=== PATIENT | female | born 1975 | race Caucasian/White ===

== ENCOUNTER → 2017-05-22 16:13 | Outpatient (CLI) | payer OTHER, SELFPAY ==
[2017-05-22 17:38] LABS: Absolute Lymphocyte Count 3.37 X10^3/ul (0.83-4.51); Absolute Neutrophil Count 5.1 X10^3/uL (2.0-7.7); Basophil# 0.06 X10^3/uL; Basophil% 0.6 % (0-1); Eosinophil# 0.17 X10^3/uL; Eosinophils% 1.8 % (0-5); Hematocrit 44.7 % (37-47); Hemoglobin 15.1 g/dl (12.0-15.0); Lymphocyte # 3.37 X10^3/ul (4.0); Lymphocyte % 35.1 % (19-41); Mean Corp Hgb Conc 33.8 g/gl (32-36); Mean Corpuscular Hgb 31.7 pg (27.0-32.0); Mean Corpuscular Volume 93.7 fL (81-99); Mean Platelet Vol. 10.8 fl (6.2-12.0); Monocyte# 0.84 X10^3/uL; Monocyte% 8.8 % (0-10); Neutrophil # 5.12 X10^3/uL (2.7-7.7); Neutrophil % 53.3 % (47-70); Platelet Count 306 K/mm3 (150-450); RBC Distribution Width CV 13.8 % (11.6-14.6); RBC Distribution Width SD 45.3 fl (35.1-43.9); Red Blood Count 4.77 M/mm3 (4.2-5.4); White Blood Count 9.6 K/mm3 (4.4-11.0)
[2017-05-22 17:55] LABS: ALB/GLOB Ratio 1.2 RATIO (0.9-2.4); AST(SGOT) 15 U/L (15-37); Alanine Aminotransfer ALT/SGPT 26 U/L (13-56); Albumin, Serum 4.1 g/dL (3.2-5.0); Alkaline Phosphatase 58 U/L (45-117); Anion Gap 12 (5-15); BUN 15 mg/dL (7-18); BUN/Creat Ratio 22.2 RATIO (10-20); Calcium,Total 9.3 mg/dL (8.5-10.1); Chloride 101 mmol/L (98-107); Creatinine, Serum 0.68 mg/dL (0.55-1.02); EST Glomerular Filtration Rate 102 mL/min (>60); Est Glom Filt Rate - Afr Amer 123 mL/min (>60); Globulin 3.4 g/dL (2.2-4.2); Glucose 138 mg/dL (74-106); POSITIVE COUNT NO; POSITIVE DIFFERENTIAL NO; POSITIVE MORPHOLOGY NO; Potassium 3.7 mmol/L (3.5-5.1); Protein, Total 7.5 g/dL (6.4-8.2); Sodium Level 137 mmol/L (136-145)
== END ==
PROVIDERS: Family Provider Family Medicine Geriatric Medicine; PCP Family Medicine Geriatric Medicine
DX: G47.33 Obstructive sleep apnea (adult) (pediatric) (principal)
CPT/HCPCS: 36415; 80053; 85025

== ENCOUNTER → 2017-08-13 14:19 | Outpatient (CLI) | payer OTHER, SELFPAY ==
[2017-08-13 17:31] LABS: Absolute Lymphocyte Count 2.71 X10^3/ul (0.83-4.51); Absolute Neutrophil Count 1.9 X10^3/uL (2.0-7.7); Basophil# 0.04 X10^3/uL; Basophil% 0.7 % (0-1); Eosinophil# 0.16 X10^3/uL; Eosinophils% 2.9 % (0-5); Hematocrit 36.7 % (37-47); Lymphocyte # 2.71 X10^3/ul (4.0); Lymphocyte % 48.7 % (19-41); Mean Corp Hgb Conc 32.7 g/gl (32-36); Mean Corpuscular Hgb 30.5 pg (27.0-32.0); Mean Corpuscular Volume 93.1 fL (81-99); Mean Platelet Vol. 11.5 fl (6.2-12.0); Monocyte# 0.74 X10^3/uL; Monocyte% 13.3 % (0-10); Neutrophil # 1.91 X10^3/uL (2.7-7.7); Neutrophil % 34.4 % (47-70); Platelet Count 216 K/mm3 (150-450); RBC Distribution Width CV 13.9 % (11.6-14.6); RBC Distribution Width SD 47.4 fl (35.1-43.9); Red Blood Count 3.94 M/mm3 (4.2-5.4); White Blood Count 5.6 K/mm3 (4.4-11.0)
[2017-08-13 17:32] LABS: POSITIVE COUNT NO; POSITIVE DIFFERENTIAL NO; POSITIVE MORPHOLOGY NO
[2017-08-13 17:55] LABS: ALB/GLOB Ratio 1.2 RATIO (0.9-2.4); AST(SGOT) 32 U/L (15-37); Alanine Aminotransfer ALT/SGPT 52 U/L (13-56); Albumin, Serum 3.6 g/dL (3.2-5.0); Alkaline Phosphatase 51 U/L (45-117); Anion Gap 9 (5-15); BUN 14 mg/dL (7-18); Calcium,Total 8.6 mg/dL (8.5-10.1); Chloride 108 mmol/L (98-107); Creatinine, Serum 0.48 mg/dL (0.55-1.02); EST Glomerular Filtration Rate 151 mL/min (>60); Est Glom Filt Rate - Afr Amer 182 mL/min (>60); Globulin 3.1 g/dL (2.2-4.2); Glucose 99 mg/dL (74-106); Potassium 3.6 mmol/L (3.5-5.1); Protein, Total 6.7 g/dL (6.4-8.2); Sodium Level 143 mmol/L (136-145); Thyroid Stim Hormone (TSH) 1.25 uIU/mL (0.358-3.74); Uric Acid 5.4 mg/dL (2.6-6.0)
== END ==
PROVIDERS: Family Provider Family Medicine Geriatric Medicine; PCP Family Medicine Geriatric Medicine; Visit Provider Family Medicine Geriatric Medicine
DX: E11.9 Type 2 diabetes mellitus without complications (principal); I10 Essential (primary) hypertension; M10.9 Gout, unspecified
CPT/HCPCS: 36415; 80053; 84443; 84550; 85025

== ENCOUNTER → 2017-09-06 07:19 | Outpatient (CLI) | payer OTHER, SELFPAY ==
--- NOTE | 2017-09-06 07:19 | DT_ITS ---
This patient was seen during an EMR downtime September 02, 2017 - September 09, 2017. This patient may have a combination of paper and electronic documentation or all paper documentation. All documentation is viewable within the e-chart portion of [employer] [facility] [employer] for each patient visit.
[2017-09-06 11:54] LABS: White Blood Count 4.2 K/mm3 (4.4-11.0)
[2017-09-06 11:55] LABS: Eosinophils% 3.4 % (0-5); Hemoglobin 12.8 g/dl (12.0-15.0); Mean Corp Hgb Conc 32.8 g/gl (32-36); Mean Corpuscular Hgb 31.2 pg (27.0-32.0); Mean Corpuscular Volume 95.1 fL (81-99); Monocyte% 8.9 % (0-10); Neutrophil % 40.7 % (47-70); POSITIVE COUNT NO; POSITIVE DIFFERENTIAL NO; POSITIVE MORPHOLOGY NO; Platelet Count 217 K/mm3 (150-450); RBC Distribution Width CV 13.8 % (11.6-14.6); RBC Distribution Width SD 46.2 fl (35.1-43.9)
[2017-09-06 11:57] LABS: Absolute Lymphocyte Count 1.91 X10^3/ul (0.83-4.51); Absolute Neutrophil Count 1.7 X10^3/uL (2.0-7.7); Basophil# 0.04 X10^3/uL; Eosinophil# 0.14 X10^3/uL; Lymphocyte # 1.91 X10^3/ul (4.0); Monocyte# 0.37 X10^3/uL; Neutrophil # 1.69 X10^3/uL (2.7-7.7)
[2017-09-06 14:44] LABS: PTHIN 13.7 pg/mL (18.4-80.1); Vitamin B12 705 pg/mL (211-911); Vitamin D,25 Hydroxy 29.7 ng/mL (29.95-100.01)
[2017-09-06 14:53] LABS: ALB/GLOB Ratio 1.2 RATIO (0.9-2.4); AST(SGOT) 34 U/L (15-37); Alanine Aminotransfer ALT/SGPT 72 U/L (13-56); Albumin, Serum 3.8 g/dL (3.2-5.0); Alkaline Phosphatase 64 U/L (45-117); Anion Gap 7 (5-15); BUN 13 mg/dL (7-18); Calcium,Total 9.1 mg/dL (8.5-10.1); Chloride 106 mmol/L (98-107); Creatinine, Serum 0.59 mg/dL (0.55-1.02); EST Glomerular Filtration Rate 119 mL/min (>60); Est Glom Filt Rate - Afr Amer 144 mL/min (>60); Globulin 3.1 g/dL (2.2-4.2); Glucose 107 mg/dL (74-106); Potassium 3.8 mmol/L (3.5-5.1); Protein, Total 6.9 g/dL (6.4-8.2); Sodium Level 143 mmol/L (136-145)
[2017-09-06 14:54] LABS: Ferritin 153 ng/mL (8-252); Iron 112 ug/dL (50-170); Iron Binding Capacity,Total 285 ug/dL (250-450); PERCENT IRON SATURATION 39.3 % (15.0-55.0)
[2017-09-13 18:15] LABS: Copper, Serum or Plasma 77 ug/dL (72-166); Vitamin B1, Thiamine 130.8 nmol/L (66.5-200.0)
== END ==
PROVIDERS: Family Provider Family Medicine Geriatric Medicine; PCP Family Medicine Geriatric Medicine
DX: Z09 Encounter for follow-up examination after completed treatment for conditions other than malignant neoplasm (principal)
CPT/HCPCS: 36415; 80053; 82306; 82525; 82607; 82728; 82746; 83540; 83550; 83970; 84425; 85025

== ENCOUNTER → 2017-10-21 07:31 | Outpatient (CLI) | payer OTHER, SELFPAY ==
[2017-10-21 11:04] LABS: AST(SGOT) 32 U/L (15-37); Alanine Aminotransfer ALT/SGPT 89 U/L (13-56); Albumin, Serum 3.5 g/dL (3.2-5.0); Alkaline Phosphatase 62 U/L (45-117); Bilirubin, Direct 0.13 mg/dL (0.00-0.30); Protein, Total 6.5 g/dL (6.4-8.2)
== END ==
PROVIDERS: Family Provider Family Medicine Geriatric Medicine; PCP Family Medicine Geriatric Medicine
DX: R74.0 Nonspecific elevation of levels of transaminase and lactic acid dehydrogenase [LDH] (principal)
CPT/HCPCS: 36415; 80076

== ENCOUNTER → 2018-02-12 08:49 | Outpatient (CLI) | payer OTHER, SELFPAY ==
--- NOTE | 2018-02-12 09:05 | RAD_ITS ---
STUDY: X-RAY - PELVIS REASON FOR EXAM: Female, 42 years old. Pain, no known injury TECHNIQUE: One view of the pelvis was obtained. COMPARISON: None. FINDINGS: There is a non-specific bowel gas pattern. Post surgical pelvis changes and intrauterine device. Normal bilateral iliac wings, sacroiliac ictal joints and visualized sacrum. Normal visualized bilateral superior and inferior pubic rami. Normal pubic symphysis. Normal ischial tuberosities. Normal visualized right femoral head. Normal right acetabulum. Normal right hip joint. Normal visualized left femoral head. Normal left acetabulum. Normal left hip joint. RAD/Hips B/L min 2 views w/ Pelvis IMPRESSION: Mild degenerative changes of the bilateral sacroiliac joints. Electronically Signed: Laurence Goodman MD at 7:25 EST , Service support ,
--- NOTE | 2018-02-12 09:05 | RAD_ITS ---
STUDY: X-RAY - SACRUM/COCCYX REASON FOR EXAM: Female, 42 years old. Pain, no known injury TECHNIQUE: 3 view(s) of the sacrum and coccyx were obtained. COMPARISON: None. FINDINGS: There is degenerative arthrosis of the bilateral sacroiliac joints. Normal visualized sacral ala and fused sacral bodies. Normal sacrococcygeal junction with a normal angulation. Normal coccygeal segments. The presacral soft tissue structures are unremarkable. RAD/Sacrum-Coccyx min 2 Views IMPRESSION: Normal x-rays of the sacrum and coccyx allowing for sclerosis and mild degenerative changes of the bilateral sacroiliac joints. Electronically Signed: Laurence Goodman MD at 7:26 EST , Service support ,
--- NOTE | 2018-02-12 09:05 | RAD_ITS ---
STUDY: X-RAY - LEFT KNEE REASON FOR EXAM: Female, 42 years old. Pain, no known injury TECHNIQUE: 4 view(s) of the knee. COMPARISON: None. FINDINGS: Normal visualized distal femur. Tiny spurring along the lateral tibial spine and femoral notch. Normal visualized proximal tibia and fibula. Normal proximal tibiofibular articulation. Normal medial femorotibial compartment. Normal lateral femorotibial compartment. There is mild degenerative arthrosis of the patellofemoral articulation. There is no demonstrated joint effusion. The soft tissue structures are unremarkable. RAD/Knee 4 or More Views IMPRESSION: Minimal degenerative changes. Electronically Signed: Laurence Goodman MD at 7:22 EST , Service support ,
--- NOTE | 2018-02-12 09:06 | RAD_ITS ---
STUDY: X-RAY - RIGHT KNEE REASON FOR EXAM: Female, 42 years old. Pain, no known injury TECHNIQUE: 4 view(s) of the knee. COMPARISON: 05/25/2015 FINDINGS: Spurring along the medial femoral condyle and lateral tibial condyle. Spurring along the bilateral femoral notch and right lateral tibial spine.. Normal visualized proximal tibia and fibula. Normal proximal tibiofibular articulation. Normal medial femorotibial compartment. Normal lateral femorotibial compartment. There is mild degenerative arthrosis of the patellofemoral articulation. There is no demonstrated joint effusion. The soft tissue structures are unremarkable. RAD/Knee 4 or More Views IMPRESSION: Stable mild degenerative changes. Electronically Signed: Laurence Goodman MD at 7:23 EST , Service support ,
--- NOTE | 2018-02-12 09:06 | RAD_ITS ---
STUDY: X-RAY - LUMBAR SPINE REASON FOR EXAM: Female, 42 years old. PAIN, NKI TECHNIQUE: 3 view(s) of the lumbar spine were obtained. COMPARISON: None FINDINGS: Normal lumbar lordosis. There is multilevel endplate spondylosis of the lumbar vertebrae. There is multi-level degenerative disc disease with multi-level disc space narrowing. There are multiple surgical clips RAD/Lumbar Spine 2 or 3 Views IMPRESSION: Degenerative changes of the spine. Electronically Signed: Nino Toro MD at 8:27 EST Tel , Service support ,
[2018-02-12 09:20] LABS: Absolute Lymphocyte Count 1.76 X10^3/ul (0.83-4.51); Absolute Neutrophil Count 8.5 X10^3/uL (2.0-7.7); Basophil# 0.02 X10^3/uL; Basophil% 0.2 % (0-1); Hematocrit 38.8 % (37-47); Hemoglobin 12.8 g/dl (12.0-15.0); Lymphocyte # 1.76 X10^3/ul (4.0); Lymphocyte % 15.7 % (19-41); Mean Corpuscular Hgb 31.5 pg (27.0-32.0); Mean Corpuscular Volume 95.6 fL (81-99); Mean Platelet Vol. 10.7 fl (6.2-12.0); Neutrophil # 8.49 X10^3/uL (2.7-7.7); Neutrophil % 75.9 % (47-70); Platelet Count 294 K/mm3 (150-450); RBC Distribution Width CV 13.2 % (11.6-14.6); RBC Distribution Width SD 46.4 fl (35.1-43.9); Red Blood Count 4.06 M/mm3 (4.2-5.4); White Blood Count 11.2 K/mm3 (4.4-11.0)
[2018-02-12 09:24] LABS: POSITIVE COUNT NO; POSITIVE DIFFERENTIAL NO; POSITIVE MORPHOLOGY NO
[2018-02-12 09:55] LABS: ALB/GLOB Ratio 1.2 RATIO (0.9-2.4); AST(SGOT) 52 U/L (15-37); Alanine Aminotransfer ALT/SGPT 164 U/L (13-56); Albumin, Serum 3.8 g/dL (3.2-5.0); Alkaline Phosphatase 58 U/L (45-117); Anion Gap 8 (5-15); BUN 16 mg/dL (7-18); BUN/Creat Ratio 24.3 RATIO (10-20); Chloride 107 mmol/L (98-107); Creatinine, Serum 0.66 mg/dL (0.55-1.02); EST Glomerular Filtration Rate 105 mL/min (>60); Est Glom Filt Rate - Afr Amer 127 mL/min (>60); Globulin 3.2 g/dL (2.2-4.2); Glucose 105 mg/dL (74-106); Sodium Level 142 mmol/L (136-145); Uric Acid 3.4 mg/dL (2.6-6.0)
== END ==
PROVIDERS: Family Provider Family Medicine Geriatric Medicine; PCP Family Medicine Geriatric Medicine; Referring Provider Family Medicine Geriatric Medicine; Visit Provider Family Medicine Geriatric Medicine
DX: E11.9 Type 2 diabetes mellitus without complications (principal); I10 Essential (primary) hypertension; M10.9 Gout, unspecified; E55.9 Vitamin D deficiency, unspecified; M54.5 Low back pain; M17.9 Osteoarthritis of knee, unspecified; M25.562 Pain in left knee; M25.561 Pain in right knee
CPT/HCPCS: 36415; 72100; 72220; 73521; 73564; 80053; 82306; 84443; 84550; 85025

== ENCOUNTER → 2018-03-18 13:12 | Outpatient (CLI) | payer OTHER, SELFPAY ==
[2018-03-18 17:14] LABS: ALB/GLOB Ratio 1.3 RATIO (0.9-2.4); AST(SGOT) 32 U/L (15-37); Alanine Aminotransfer ALT/SGPT 96 U/L (13-56); Albumin, Serum 3.7 g/dL (3.2-5.0); Alkaline Phosphatase 44 U/L (45-117); Anion Gap 8 (5-15); BUN 19 mg/dL (7-18); BUN/Creat Ratio 30.7 RATIO (10-20); Calcium,Total 8.8 mg/dL (8.5-10.1); Chloride 105 mmol/L (98-107); Creatinine, Serum 0.62 mg/dL (0.55-1.02); EST Glomerular Filtration Rate 112 mL/min (>60); Est Glom Filt Rate - Afr Amer 136 mL/min (>60); Globulin 2.8 g/dL (2.2-4.2); Glucose 91 mg/dL (74-106); Potassium 3.9 mmol/L (3.5-5.1); Protein, Total 6.5 g/dL (6.4-8.2); Sodium Level 142 mmol/L (136-145)
--- OUTSIDE RECORDS SUMMARY | 2018-06-19 23:53 | XMS RPT_ITS ---
:1975 Author Organization OHIP Support Name Relationship Address Phone [employer] Unavailable [address] + [place] [address] NOLAN CASTILLO Unavailable [address] + [place] [address] [employer] Unavailable [address] + [place] [address] NOLAN CASTILLO Unavailable [address] + [place] [address] [employer] Unavailable [address] + [place] [address] NOLAN CASTILLO Unavailable [address] + [place] [address] [employer] Unavailable [address] + [place] [address] NOLAN CASTILLO Unavailable [address] + [place] [address] [employer] Unavailable [address] + [place] [address] KAMI NOLAN Unavailable [address] + [place] [address] [employer] Unavailable [address] + [place] [address] TALIA CASTILLOIAN Unavailable [address] + [place] [address] [employer] Unavailable [address] + [place] [address] NOLAN CASTILLO Unavailable [address] + [place] [address] NOLAN CASTILLO Unavailable Unavailable + NOT GIVEN Unavailable Un[place] [address] [employer] Unavailable [address] + [place] [address] KAMI, NOLAN Unavailable [address] + [place] [address] Care Team Providers Name Role Phone SUNDAR GUARDADO MD Attending Unavailable UNASSIGNED, DOCTOR Primary Care Unavailable HAMILTON WHITTEN Attending Unavailable KAVON ABEBE Attending Unavailable KAVON ABEBE Referring Unavailable John, Luis E Chi Primary Care Unavailable John, Luis E Chi Attending Unavailable John, Luis E Chi Referring Unavailable John, Luis E Chi Primary Care Unavailable KAVON ABEBE Attending Unavailable KAVON ABEBE Referring Unavailable John, Luis E Chi Primary Care Unavailable John, Luis E Chi Attending Unavailable John, Luis E Chi Primary Care Unavailable KAVON ABEBE Referring Unavailable John, Luis E Chi Primary Care Unavailable KAVON ABEBE Attending Unavailable KAVON ABEBE Referring Unavailable John, Luis E Chi Primary Care Unavailable KAVON ABEBE Attending Unavailable John, Luis E Chi Attending Unavailable John, Luis E Chi Referring Unavailable John, Luis E Chi Primary Care Unavailable John, Luis E Chi Attending Unavailable John, Luis E Chi Primary Care Unavailable PROBLEMS PROBLEMS DATE TYPE CONDITION / CODE ATTENDING STATUS SOURCE 04/23/2018 Unknown R50.9 - Fever, John, Luis E Chi Active [facility] unspecified / Community R50.9(ICD-10) Hospital Repository 04/18/2018 Unknown 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, Community unspecified / Hospital K90.9(ICD-10) Repository 04/18/2018 Unknown E53.8 - Deficiency KAVON ABEBE Active [facility] of other specified B Community group vitamins / Hospital E53.8(ICD-10) Repository 02/12/2018 Unknown E55.9 - Vitamin D John, Luis E Chi Active [place] deficiency, Community unspecified / Hospital E55.9(ICD-10) Repository 02/12/2018 Unknown E11.9 - Type 2 John, Luis E Chi Active [facility] diabetes mellitus Community without Hospital complications / Repository E11.9(ICD-10) 02/12/2018 Unknown M54.9 - Dorsalgia, John, Luis E Chi Active [facility] unspecified / Community M54.9(ICD-10) Hospital Repository 02/12/2018 Unknown M17.9 - John, Luis E Chi Active [facility] Osteoarthritis of Community knee, unspecified / Hospital M17.9(ICD-10) Repository 02/12/2018 Unknown M54.5 - Low back John, Luis E Chi Active [facility] pain / M54.5(ICD-10) Community Hospital Repository 02/12/2018 Unknown M25.569 - Pain in John, Luis E Chi Active [facility] unspecified knee / Community M25.569(ICD-10) Hospital Repository 11/22/2017 Unknown R74.0 - Nonspecific KAVON ABEBE elevation of levels [facility] lactic acid Repository dehydrogenase [LDH] / R74.0(ICD-10) 11/28/2017 Unknown Z09 - Encounter for KAVON ABEBE follow-up Community examination after Hospital completed treatment Repository for conditions other than malignant neoplasm / Z09(ICD-10) 06/11/2017 Admitting Morbid (severe) [facility] [employer] Diagnosis obesity due to [facility] excess calories / Repository E66.01(ICD-10) 06/11/2017 Final Diagnosis Morbid (severe) [facility], [facility] (Discharge) obesity due to [facility] excess calories / Repository E66.01(ICD-10) 06/11/2017 Final Diagnosis Type 2 diabetes [facility] [employer] (Discharge) mellitus with [facility] unspecified Repository complications / E11.8(ICD-10) 06/11/2017 Final Diagnosis Obstructive sleep [facility], [employer] (Discharge) apnea (adult) [facility] (pediatric) / Repository G47.33(ICD-10) 06/11/2017 Final Diagnosis Hypothyroidism, NETTIE-KHOI, SUNDAR [employer] (Discharge) unspecified / MD System E03.9(ICD-10) Repository 06/11/2017 Final Diagnosis Essential (primary) NETTIE-KHOI, SUNDAR [employer] (Discharge) hypertension / [facility] System I10(ICD-10) Repository 06/11/2017 Final Diagnosis Gastro-esophageal [facility] [employer] (Discharge) reflux disease MD [facility] without esophagitis Repository / K21.9(ICD-10) 06/11/2017 Final Diagnosis Hyperlipidemia, NETTIE-KHOI, SUNDAR [employer] [facility] (Discharge) unspecified / MD System E78.5(ICD-10) Repository 06/11/2017 Final Diagnosis Primary generalized NETTIE-KHOI, SUNDAR [facility] (Discharge) (osteo)arthritis / MD System M15.0(ICD-10) Repository 06/11/2017 Final Diagnosis Stress incontinence SUNDAR GUARDADO [employer] [facility] (Discharge) (female) (male) / MD System N39.3(ICD-10) Repository 06/11/2017 Final Diagnosis Family hx of ischem [facility] [employer] [facility] (Discharge) heart dis and oth MD System dis of the circ sys Repository / Z82.49(ICD-10) 06/11/2017 Final Diagnosis Body mass index SUNDAR GUARDADO [employer] [facility] (Discharge) (BMI) 40.0-44.9, MD System adult / Repository Z68.41(ICD-10) 05/22/2017 Unknown G47.33 - Obstructive KAVON ABEBE [facility] sleep apnea (adult) [facility] (pediatric) / Hospital G47.33(ICD-10) Repository PROCEDURES PROCEDURES No Procedure Records FoundRESULTS RESULTS Observed: 04/23/2018 Status: F Source: [place] RESPIRATORY PANEL 12:31 PM [facility] MOLECULAR REPOSITORY RP [facility]- 04/23/18 1512 Anette Martins. Copy of report sent to Infection Control Printer MS#[id number] 04/23/18 8205 DAVID. Normal Reference Range = Not Detected ADENOVIRUS Not Detected HUMAN METAPHNEUMO Not Detected INFLUENZA A Positive for INFLUENZA A by NAAT technology INFLUENZA A (SUBTYPE H1) Positive for INFLUENZA A SUBTYPE H1 by NAAT technology INFLUENZA A (SUBTYPE H3) Not Detected INFLUENZA B Not Detected PARAINFLUENZA 1 Not Detected PARAINFLUENZA 2 Not Detected PARAINFLUENZA 3 Not Detected PARAINFLUENZA 4 Not Detected RHINOVIRUS Not Detected RSV A Not Detected RSV B Not Detected NAAT METHOD Testing was performed using nucleic acid amplification ORGANISM 1: INFLUENZA A (SUBTYPE H1) Performed By: #### M100.638 #### [facility] [address] [place], [place], [address] PTHIN Collected: 04/18/2018 Status: F Source: [place] 12:09 PM [facility] REPOSITORY TYPE CODE TESTS RESULT OUT OF RANGE REFERENCE UNITS LAB L509.1000 18.4-80.1 pg/mL Low PTHIN 17.6 Performed By: #### L509.1000 #### [facility] [address] [place], [address] VITAMIN B12 Collected: 04/18/2018 Status: F Source: [place] 12:09 PM [facility] REPOSITORY TYPE CODE TESTS RESULT OUT OF RANGE REFERENCE UNITS LAB L503.0105 211-911 pg/mL Normal Vitamin B12 551 Performed By: #### L503.0105 #### [facility] [address] [place], [address] VITAMIN B1, THIAMINE Collected: 04/18/2018 Status: F Source: [place] 12:09 PM [facility] REPOSITORY TYPE CODE TESTS RESULT OUT OF RANGE REFERENCE UNITS LAB L3300.8000 66.5-200.0 nmol/L Normal VIT B1 198.9 Result Comment: This test was developed and its performance characteristics determined by [facility]. It has not been cleared or approved by the Food and Drug Administration. Performed at: [address] [id number] Certified Personal Chef: Patricia Washington MD, Phone: [phone] Performed By: #### L3300.8000 #### [facility] (refer to report for specific site) refer to report for address and phone number PROGRESS Observed: 03/21/2018 Status: COMPLETED Source: [place] 3:01 PM [facility] REPOSITORY HNO ID: [id number] Author: Hamilton Jackson Service: (none) Author Type: Physician Type: Progress Notes Filed: 03/21/2018 3:49 PM Note Text: Osvaldo Castillo presents today for IUD insertion for contraception, menstrual dysfunction. No LMP recorded. Patient is not currently having periods (Reason: IUD). GC/chlamydia: Not done: no risk factors and/or patient declines screening test: negative Side effects including irregular bleeding were discussed with the patient. She understands that it should be removed in 5 years or sooner if she desires a . IUD source: office provided IUD lot #: [id number] Exp date: 07/2020 UNIVERSAL PROTOCOL / SAFETY CHECKLIST Procedure to be performed: IUD removal and insertion Sign in Communication: Completed Time Out: Team Confirms the Correct Patient, Correct Procedure, Correct Site and Site Marking, Correct Position (if applicable), Prep and Dry Time (if applicable). Time: Affirmation of Time Out: YES Sign Out Discussion: Completed The uterus sounded to 7 cm and the uterus is Anteverted.. After prepping the cervix with betadine and using sterile technique, the Mirena IUD was inserted without difficulty and the string was cut to 2cm from the external os of the cervix. Patient tolerated procedure well. PLAN: Patient was advised to observe for signs and symptoms of infection including but not limited to fever, malodorous vaginal discharge and/or pain. She was told to check the string monthly for accurate placement. Bleeding expectations were reviewed. Follow up for next annual exam or sooner as needed. MD Osvaldo Tirado presents for removal of IUD due to expiration . UNIVERSAL PROTOCOL / SAFETY CHECKLIST Procedure to be performed: IUD removal and reinsertion Sign in Communication: Completed Time Out: Team Confirms the Correct Patient, Correct Procedure, Correct Site and Site Marking, Correct Position (if applicable), Prep and Dry Time (if applicable). Time: Affirmation of Time Out: YES Sign Out Discussion: Completed PROCEDURE: Speculum placed in vagina, IUD string visualized and grasped with ring forceps. ASSESSMENT/PLAN: IUD removed without difficult and patient tolerated procedure well. Contraception plans: Mirena IUD Hamilton Crouch MD CNOV Observed: 03/21/2018 Status: COMPLETED Source: [place] 3:00 PM [facility] REPOSITORY Office Visit (WOOB) OSVALDO CASTILLO ([id number]) 1975 F Date Time Provider Department 03/21/18 3:00 PM HAMILTON WHITTEN WOOB During your visit today, we recorded the following information about you: Blood pressure Weight 102/60 74.8 kg Hamilton Crouch MD 03/21/2018 3:49 PM Signed Osvaldo Castillo presents today for IUD insertion for contraception, menstrual dysfunction. No LMP recorded. Patient is not currently having periods (Reason: IUD). GC/chlamydia: Not done: no risk factors and/or patient declines screening test: negative Side effects including irregular bleeding were discussed with the patient. She understands that it should be removed in 5 years or sooner if she desires a . IUD source: office provided IUD lot #: [id number] Exp date: 07/2020 UNIVERSAL PROTOCOL / SAFETY CHECKLIST Procedure to be performed: IUD removal and insertion Sign in Communication: Completed Time Out: Team Confirms the Correct Patient, Correct Procedure, Correct Site and Site Marking, Correct Position (if applicable), Prep and Dry Time (if applicable). Time: Affirmation of Time Out: YES Sign Out Discussion: Completed The uterus sounded to 7 cm and the uterus is Anteverted.. After prepping the cervix with betadine and using sterile technique, the Mirena IUD was inserted without difficulty and the string was cut to 2cm from the external os of the cervix. Patient tolerated procedure well. PLAN: Patient was advised to observe for signs and symptoms of infection including but not limited to fever, malodorous vaginal discharge and/or pain. She was told to check the string monthly for accurate placement. Bleeding expectations were reviewed. Follow up for next annual exam or sooner as needed. MD Osvaldo Tiardo presents for removal of IUD due to expiration . UNIVERSAL PROTOCOL / SAFETY CHECKLIST Procedure to be performed: IUD removal and reinsertion Sign in Communication: Completed Time Out: Team Confirms the Correct Patient, Correct Procedure, Correct Site and Site Marking, Correct Position (if applicable), Prep and Dry Time (if applicable). Time: Affirmation of Time Out: YES Sign Out Discussion: Completed PROCEDURE: Speculum placed in vagina, IUD string visualized and grasped with ring forceps. ASSESSMENT/PLAN: IUD removed without difficult and patient tolerated procedure well. Contraception plans: Mirena IUD MD Brianne Tirado Ma 03/21/2018 3:01 PM Signed POST IUD INSTRUCTIONS You may have irregular bleeding during the first 3 months of use. You may have mild-severe cramping for the next 48 hours. You may use over the counter medication (Motrin, Tylenol) as needed. Your IUD must be removed or replaced in 3 years if you have a Carly, 5 years if you have a Mirena or Kyleena and 10 years if you have a Paragard. Call my office for signs/symptoms of infection such as severe cramping, fever, or unusual bleeding. Check for string placement as instructed by your doctor. If you have any additional questions, please contact the office. Referring Provider: SELF [200] Allergies As of Date: 03/21/2018 (No Known Allergies) Date Reviewed: 03/21/2018 Reviewed by: Brianne Cano Ma - Fully Assessed Reason for Visit: Insertion Of IUD [291] IUD Removal [1950] Reason For Visit History Recorded Visit Diagnoses:Encounter for IUD insertion [Z30.430] Encounter for IUD removal [Z30.432] Order(s):INSERT INTRAUTERINE DEVICE [7692657] Order #: [id number] REMOVE INTRAUTERINE DEVICE [[id number]] Order #: [id number] [] levonorgestrel 20 mcg/24 hr (5 years) 1 Each intrauterine device (MIRENA)Disp: Rfl: Prescriptions as of 03/21/2018 Sig: ALLOPURINOL 100 MG TABLET Take one(1) tablet daily. SYNTHROID 88 MCG TABLET Take one(1) tablet daily. ATORVASTATIN 10 MG TABLET Take 10 mg by mouth once elena* DESVENLAFAXINE SUCCINATE ER 1* Take 100 mg by mouth once jerica* METFORMIN 500 MG TABLET Take 1,000 mg by mouth twice * SPIRONOLACTONE 25 MG TABLET Take 25 mg by mouth twice jerica* VALSARTAN 320 MG TABLET Take 320 mg by mouth once jerica* Problem List As Of Date 03/21/2018 Noted Resolved Irregular menstrual cycle [N92.6] INVALID FOR* DM type 2 (diabetes mellitus, type 2) [E11.9] INVALID FOR* HTN (hypertension) [I10] INVALID FOR* Hypercholesteremia [E78.00] INVALID FOR* Dysmetabolic syndrome [E88.81] INVALID FOR* Hypothyroid [E03.9] INVALID FOR* HSIL (high grade squamous intraepithelial lesio*INVALID FOR* GILES III (cervical intraepithelial neoplasia gra*INVALID FOR* More... Other instructions from your clinician: POST IUD INSTRUCTIONS You may have irregular bleeding during the first 3 months of use. You may have mild-severe cramping for the next 48 hours. You may use over the counter medication (Motrin, Tylenol) as needed. Your IUD must be removed or replaced in 3 years if you have a Carly, 5 years if you have a Mirena or Kyleena and 10 years if you have a Paragard. Call my office for signs/symptoms of infection such as severe cramping, fever, or unusual bleeding. Check for string placement as instructed by your doctor. If you have any additional questions, please contact the office. Prescriptions ordered this encounter Disp Refills Start End LEVONORGESTREL 20 MCG/24 HR (5 YEARS* 03/21/2018 03/21/2018 Route: INTRAUTERINE Medications Discontinued During This Encounter levonorgestrel (MIRENA) 20 mcg/24 ho* 1 Ea* 0 03/23/2013 03/21/2018 Class: In Office Sig: IUD x 5 years Disc: Reason for discontinue is not on file. Disposition: Return if symptoms worsen or fail to improve, for Routine annual exam. Follow-up and Disposition History Recorded Encounter Status:Closed by HAMILTON JACKSON MD on 03/21/18 COMPREHENSIVE METABOLIC Collected: 03/18/2018 Status: F Source: [place] RHONDA 1:14 PM [facility] REPOSITORY TYPE CODE TESTS RESULT OUT OF RANGE REFERENCE UNITS LAB L501.0100 74-106 mg/dL Normal GLU 91 Result Comment: Please note revised GLUCOSE reference range effective 2017. LAB L501.1000 7-18 mg/dL High BUN 19 LAB L501.1100 0.55-1.02 mg/dL Normal CREAT,SERUM 0.62 Result Comment: The validity of the calculated GFR AND GFRAA in patients over 70 years has not been determined. Clinical correlation is essential. LAB L501.1110 >60 mL/min Normal EST GFR 112 Result Comment: Non- GFR Calc LAB L501.1115 >60 mL/min Normal EST GFR - AA 136 Result Comment: GFR Calc LAB L501.1300 10-20 RATIO High BUN/CRE 30.7 LAB L501.1500 6.4-8.2 g/dL T Normal PROT 6.5 LAB L501.1800 3.2-5.0 g/dL Normal ALB 3.7 LAB L501.1950 2.2-4.2 g/dL Normal GLOB 2.8 LAB L501.2000 0.9-2.4 RATIO Normal A/G 1.3 LAB L501.2200 8.5-10.1 mg/dL CA Normal 8.8 LAB L501.4100 15-37 U/L Normal AST 32 LAB L501.4305 45-117 U/L Low ALK P 44 LAB L501.4405 13-56 U/L High ALT 96 LAB L501.4600 0.20-1.00 mg/dL T Normal BILI 0.40 LAB L501.5300 136-145 mmol/L NA Normal 142 LAB L501.5600 3.5-5.1 mmol/L K Normal 3.9 LAB L501.5900 98-107 mmol/L CL Normal 105 LAB L501.6100 21.0-32.0 mmol/L Normal CO2 29.0 LAB L501.6200 5-15 Normal GAP 8 Performed By: #### L500.4050 #### [facility] [address] [place], [address] KNEE 4 OR MORE Observed: 02/12/2018 Status: F Source: [facility] 9:06 AM [facility] REPOSITORY [facility] Imaging Services [address] [place] [address] Knee 4 or More Views MR#: [id number] Acct: [id number] Name: OSVALDO CASTILLO Rep #: [id number] : 1975 F 42 From: Laurence Goodman MD PCP: John LOVE,Luis E Topete Status: REG CLI Study: Knee 4 or More Views Date of Exam: 02/12/18 Exam# [id number] Ordering Dr: Luis E Lopez MD STUDY: X-RAY - LEFT KNEE REASON FOR EXAM: Female, 42 years old. Pain, no known injury TECHNIQUE: 4 view(s) of the knee. COMPARISON: None. FINDINGS: Normal visualized distal femur. Tiny spurring along the lateral tibial spine and femoral notch. Normal visualized proximal tibia and fibula. Normal proximal tibiofibular articulation. Normal medial femorotibial compartment. Normal lateral femorotibial compartment. There is mild degenerative arthrosis of the patellofemoral articulation. There is no demonstrated joint effusion. The soft tissue structures are unremarkable. RAD/Knee 4 or More Views IMPRESSION: Minimal degenerative changes. Electronically Signed: Laurence Goodman MD at 7:22 EST , Service support , CC: Luis E Lopez MD Welder Tack: Signed KNEE 4 OR MORE Observed: 02/12/2018 Status: F Source: [place] VIEWS 9:06 AM [facility] REPOSITORY [facility] Imaging Services [address] [place] [address] Knee 4 or More Views MR#: [id number] Acct: [id number] Name: OSVALDO CASTILLO Rep #: [id number] : 1975 F 42 From: Laurence Goodman MD PCP: Luis E Lopez MD, Chi Status: REG CLI Study: Knee 4 or More Views Date of Exam: 02/12/18 Exam# [id number] Ordering Dr: Luis E Lopez MD STUDY: X-RAY - RIGHT KNEE REASON FOR EXAM: Female, 42 years old. Pain, no known injury TECHNIQUE: 4 view(s) of the knee. COMPARISON: 05/25/2015 FINDINGS: Spurring along the medial femoral condyle and lateral tibial condyle. Spurring along the bilateral femoral notch and right lateral tibial spine.. Normal visualized proximal tibia and fibula. Normal proximal tibiofibular articulation. Normal medial femorotibial compartment. Normal lateral femorotibial compartment. There is mild degenerative arthrosis of the patellofemoral articulation. There is no demonstrated joint effusion. The soft tissue structures are unremarkable. RAD/Knee 4 or More Views IMPRESSION: Stable mild degenerative changes. Electronically Signed: Laurence Goodman MD at 7:23 EST , Service support , CC: Luis E Lopez MD Welder Tack: Signed HIPS B/L MIN 2 Observed: 02/12/2018 Status: F Source: [place] VIEWS W/ PELVIS 9:06 AM [facility] REPOSITORY [facility] Imaging Services [facility] [place] [address] Hips B/L min 2 views w/ Pelvis MR#: [id number] Acct: [id number] Name: OSVALDO CASTILLO Rep #: [id number] : 1975 F 42 From: Laurence Goodman MD PCP: Luis E Lopez MD, Chi Status: REG CLI Study: Hips B/L min 2 views w/ Pelvis Date of Exam: 02/12/18 Exam# [id number] Ordering Dr: Luis E Lopez MD STUDY: X-RAY - PELVIS REASON FOR EXAM: Female, 42 years old. Pain, no known injury TECHNIQUE: One view of the pelvis was obtained. COMPARISON: None. FINDINGS: There is a non-specific bowel gas pattern. Post surgical pelvis changes and intrauterine device. Normal bilateral iliac wings, sacroiliac ictal joints and visualized sacrum. Normal visualized bilateral superior and inferior pubic rami. Normal pubic symphysis. Normal ischial tuberosities. Normal visualized right femoral head. Normal right acetabulum. Normal right hip joint. Normal visualized left femoral head. Normal left acetabulum. Normal left hip joint. RAD/Hips B/L min 2 views w/ Pelvis IMPRESSION: Mild degenerative changes of the bilateral sacroiliac joints. Electronically Signed: Laurence Goodman MD at 7:25 EST , Service support , CC: Luis E Lopez MD Welder Tack: Signed SACRUM-COCCYX MIN 2 VIEWS Observed: 02/12/2018 Status: F Source: [place] 9:06 AM [facility] REPOSITORY [facility] Imaging Services [address] [place] [address] Sacrum-Coccyx min 2 Views MR#: [id number] Acct: [id number] Name: OSVALDO CASTILLO Rep #: [id number] : 1975 F 42 From: Laurence Goodman MD PCP: John LOVE,Luis E Topete Status: REG CLI Study: Sacrum-Coccyx min 2 Views Date of Exam: 02/12/18 Exam# [id number] Ordering Dr: Luis E Lopez MD STUDY: X-RAY - SACRUM/COCCYX REASON FOR EXAM: Female, 42 years old. Pain, no known injury TECHNIQUE: 3 view(s) of the sacrum and coccyx were obtained. COMPARISON: None. FINDINGS: There is degenerative arthrosis of the bilateral sacroiliac joints. Normal visualized sacral ala and fused sacral bodies. Normal sacrococcygeal junction with a normal angulation. Normal coccygeal segments. The presacral soft tissue structures are unremarkable. RAD/Sacrum-Coccyx min 2 Views IMPRESSION: Normal x-rays of the sacrum and coccyx allowing for sclerosis and mild degenerative changes of the bilateral sacroiliac joints. Electronically Signed: Laurence Goodman MD at 7:26 EST , Service support , CC: Luis E Lopez MD Welder Tack: Signed LUMBAR SPINE 2 OR 3 Observed: 02/12/2018 Status: F Source: [place] VIEWS 9:06 AM [facility] REPOSITORY [facility] Imaging Services [address] [place] [address] Lumbar Spine 2 or 3 Views MR#: [id number] Acct: [id number] Name: OSVALDO CASTILLO Rep #: [id number] : 1975 F 42 From: Nino Toro PCP: John LOVE,Luis E Topete Status: REG CLI Study: Lumbar Spine 2 or 3 Views Date of Exam: 02/12/18 Exam# [id number] Ordering Dr: Luis E Lopez MD STUDY: X-RAY - LUMBAR SPINE REASON FOR EXAM: Female, 42 years old. PAIN, NKI TECHNIQUE: 3 view(s) of the lumbar spine were obtained. COMPARISON: None FINDINGS: Normal lumbar lordosis. There is multilevel endplate spondylosis of the lumbar vertebrae. There is multi-level degenerative disc disease with multi-level disc space narrowing. There are multiple surgical clips RAD/Lumbar Spine 2 or 3 Views IMPRESSION: Degenerative changes of the spine. Electronically Signed: Nino Toro MD at 8:27 EST Tel , Service support , CC: Luis E Lopez MD Welder Tack: Signed CBC W/DIFF, AUTOMATED Collected: 02/12/2018 Status: F Source: [place] 8:54 AM [facility] REPOSITORY TYPE CODE TESTS RESULT OUT OF RANGE REFERENCE UNITS LAB L100.1000 4.4-11.0 K/mm3 High WBC 11.2 LAB L100.1200 4.2-5.4 M/mm3 Low RBC 4.06 LAB L100.1300 12.0-15.0 g/dl Normal HGB 12.8 LAB L100.1400 37-47 % Normal HCT 38.8 LAB L100.1500 81-99 fL Normal MCV 95.6 LAB L100.1600 27.0-32.0 pg Normal MCH 31.5 LAB L100.1700 32-36 g/gl Normal MCHC 33.0 LAB L100.1810 11.6-14.6 % Normal RDW CV 13.2 LAB L100.1820 35.1-43.9 fl High RDW SD 46.4 LAB L100.1900 150-450 K/mm3 Normal PLT 294 LAB L100.2000 6.2-12.0 fl Normal MPV 10.7 LAB L100.2100 47-70 % High NEUT% 75.9 LAB L100.2200 19-41 % Low LY% 15.7 LAB L100.2300 0-10 % Normal MONO% 8.0 LAB L100.2400 0-5 % Normal EO% 0.0 LAB L100.2500 0-1 % Normal BASO% 0.2 LAB L100.2550 0.0-0.9 % Normal IM GRAN % 0.200 Result Comment: IG% - Immature Granulocytes (promyelocytes, myelocytes and metamyelocytes) > 1% indicates that a LEFT SHIFT is Present. LAB L100.2620 2.0-7.7 X10 3/uL High Absolute Neut 8.5 LAB L100.2720 0.83-4.51 X10 3/ul Normal Absolute Lymph 1.76 Performed By: #### L100.0100 #### [facility] [place], [address] VITAMIN D,25 HYDROXY Collected: 02/12/2018 Status: F Source: [facility] 8:54 AM [facility] REPOSITORY TYPE CODE TESTS RESULT OUT OF RANGE REFERENCE UNITS LAB L506.1000 29.95-100.01 ng/mL Normal Vitamin D 33.0 25-OH Result Comment: Vitamin D 25(OH) Status Range Deficiency <20 ng/mL (50nmol/L) Insuffciency 20 - 30 ng/mL (50 - 75 nmol/L) Sufficiency 30 - 100 ng/mL (75 - 250 nmol/L) Toxicity >100 ng/mL (>250 nmol/L) Performed By: #### L506.1000 #### [facility] [place], [address] COMPREHENSIVE METABOLIC Collected: 02/12/2018 Status: F Source: [facility] 8:54 AM [facility] REPOSITORY TYPE CODE TESTS RESULT OUT OF RANGE REFERENCE UNITS LAB L501.0100 74-106 mg/dL Normal GLU 105 Result Comment: Fasting Glucose result from 100 to 125 mg/dL suggests IMPAIRED HOMEOSTASIS per A.D.A. criteria. Please note revised GLUCOSE reference range effective 2017. LAB L501.1000 7-18 mg/dL Normal BUN 16 LAB L501.1100 0.55-1.02 mg/dL Normal CREAT,SERUM 0.66 Result Comment: The validity of the calculated GFR AND GFRAA in patients over 70 years has not been determined. Clinical correlation is essential. LAB L501.1110 >60 mL/min Normal EST GFR 105 Result Comment: Non- GFR Calc LAB L501.1115 >60 mL/min Normal EST GFR - AA 127 Result Comment: GFR Calc LAB L501.1300 10-20 RATIO High BUN/CRE 24.3 LAB L501.1500 6.4-8.2 g/dL T Normal PROT 7.0 LAB L501.1800 3.2-5.0 g/dL Normal ALB 3.8 LAB L501.1950 2.2-4.2 g/dL Normal GLOB 3.2 LAB L501.2000 0.9-2.4 RATIO Normal A/G 1.2 LAB L501.2200 8.5-10.1 mg/dL CA Normal 9.0 LAB L501.4100 15-37 U/L High AST 52 LAB L501.4305 45-117 U/L Normal ALK P 58 LAB L501.4405 13-56 U/L High ALT 164 LAB L501.4600 0.20-1.00 mg/dL T Normal BILI 0.50 LAB L501.5300 136-145 mmol/L NA Normal 142 LAB L501.5600 3.5-5.1 mmol/L K Normal 4.0 LAB L501.5900 98-107 mmol/L CL Normal 107 LAB L501.6100 21.0-32.0 mmol/L Normal CO2 27.0 LAB L501.6200 5-15 Normal GAP 8 Performed By: #### L500.4050, L501.1400, L501.9520 #### [facility] [address] [place], [place], [address] URIC ACID Collected: 02/12/2018 Status: F Source: [facility] 8:54 AM [facility] REPOSITORY TYPE CODE TESTS RESULT OUT OF RANGE REFERENCE UNITS LAB L501.1400 2.6-6.0 mg/dL Normal URIC 3.4 Result Comment: The drugs N-Acetylcysteine and Metamizole may falsely depress this assay. Performed By: #### L500.4050, L501.1400, L501.9520 #### [facility] [place], [place], [address] THYROID STIM HORMONE Collected: 02/12/2018 Status: F Source: [facility] (TSH) 8:54 AM [facility] REPOSITORY TYPE CODE TESTS RESULT OUT OF RANGE REFERENCE UNITS LAB L501.9520 0.358-3.74 uIU/mL Normal TSH 0.60 Performed By: #### L500.4050, L501.1400, L501.9520 #### [facility] [place], [place], [address] LIVER PROFILE Collected: 10/21/2017 Status: F Source: [facility] 7:36 AM [facility] REPOSITORY TYPE CODE TESTS RESULT OUT OF RANGE REFERENCE UNITS LAB L501.1500 6.4-8.2 g/dL Normal T PROT 6.5 LAB L501.1800 3.2-5.0 g/dL Normal ALB 3.5 LAB L501.1950 2.2-4.2 g/dL Normal GLOB 3.0 LAB L501.4100 15-37 U/L Normal AST 32 LAB L501.4305 45-117 U/L Normal ALK P 62 LAB L501.4405 13-56 U/L High ALT 89 LAB L501.4600 0.20-1.00 mg/dL Normal T BILI 0.40 LAB L501.4700 0.00-0.30 mg/dL Normal D BILI 0.13 Performed By: #### L500.3400 #### [facility] [address] [place], [address] DOWNTIME REPORT Observed: 09/19/2017 Status: F Source: [facility] 1:23 PM [facility] REPOSITORY [facility] Medical Records Department [address] [place] [address] Downtime Report MR#: [id number] Acct: [id number] Name: OSVALDO CASTILLO Rep #: [id number] : 1975 42 From: Morris Alexander PCP: John LOVE,Pathable Status: REG CLI This patient was seen during an EMR downtime September 02, 2017 - September 09, 2017. This patient may have a combination of paper and electronic documentation or all paper documentation. All documentation is viewable within the e-chart portion of [employer] for each patient visit. CBC W/DIFF, AUTOMATED Collected: 09/06/2017 Status: F Source: [facility] 7:29 AM [facility] REPOSITORY TYPE CODE TESTS RESULT OUT OF RANGE REFERENCE UNITS LAB L100.1000 4.4-11.0 K/mm3 Low WBC 4.2 LAB L100.1200 4.2-5.4 M/mm3 Low RBC 4.10 LAB L100.1300 12.0-15.0 g/dl Normal HGB 12.8 LAB L100.1400 37-47 % Normal HCT 39.0 LAB L100.1500 81-99 fL Normal MCV 95.1 LAB L100.1600 27.0-32.0 pg Normal MCH 31.2 LAB L100.1700 32-36 g/gl Normal MCHC 32.8 LAB L100.1810 11.6-14.6 % Normal RDW CV 13.8 LAB L100.1820 35.1-43.9 fl High RDW SD 46.2 LAB L100.1900 150-450 K/mm3 Normal PLT 217 LAB L100.2000 6.2-12.0 fl Normal MPV 12.0 LAB L100.2100 47-70 % Low NEUT% 40.7 LAB L100.2200 19-41 % High LY% 46.0 LAB L100.2300 0-10 % Normal MONO% 8.9 LAB L100.2400 0-5 % Normal EO% 3.4 LAB L100.2500 0-1 % Normal BASO% 1.0 LAB L100.2550 0.0-0.9 % Normal IM GRAN % 0.000 Result Comment: IG% - Immature Granulocytes (promyelocytes, myelocytes and metamyelocytes) > 1% indicates that a LEFT SHIFT is Present. LAB L100.2620 2.0-7.7 X10 3/uL Low Absolute Neut 1.7 LAB L100.2720 0.83-4.51 X10 3/ul Normal Absolute Lymph 1.91 Performed By: #### L100.0100 #### [facility] [address] [place], [address] COMPREHENSIVE METABOLIC Collected: 09/06/2017 Status: F Source: [facility] 7:29 AM [facility] REPOSITORY Order Comment: Is Patient Taking Vitamins or Folic Acid Supplements? N TYPE CODE TESTS RESULT OUT OF RANGE REFERENCE UNITS LAB L501.0100 74-106 mg/dL High GLU 107 Result Comment: Fasting Glucose result from 100 to 125 mg/dL suggests IMPAIRED HOMEOSTASIS per A.D.A. criteria. Please note revised GLUCOSE reference range effective 2017. LAB L501.1000 7-18 mg/dL Normal BUN 13 LAB L501.1100 0.55-1.02 mg/dL Normal CREAT,SERUM 0.59 Result Comment: The validity of the calculated GFR AND GFRAA in patients over 70 years has not been determined. Clinical correlation is essential. LAB L501.1110 >60 mL/min Normal EST GFR 119 LAB L501.1115 >60 mL/min Normal EST GFR - AA 144 LAB L501.1300 10-20 RATIO High BUN/CRE 22.0 LAB L501.1500 6.4-8.2 g/dL Normal T PROT 6.9 LAB L501.1800 3.2-5.0 g/dL Normal ALB 3.8 LAB L501.1950 2.2-4.2 g/dL Normal GLOB 3.1 LAB L501.2000 0.9-2.4 RATIO Normal A/G 1.2 LAB L501.2200 8.5-10.1 mg/dL Normal CA 9.1 LAB L501.4100 15-37 U/L Normal AST 34 LAB L501.4305 45-117 U/L Normal ALK P 64 LAB L501.4405 13-56 U/L High ALT 72 LAB L501.4600 0.20-1.00 mg/dL Normal T BILI 0.70 LAB L501.5300 136-145 mmol/L Normal NA 143 LAB L501.5600 3.5-5.1 mmol/L Normal K 3.8 LAB L501.5900 98-107 mmol/L Normal CL 106 LAB L501.6100 21.0-32.0 mmol/L Normal CO2 30.0 LAB L501.6200 5-15 Normal GAP 7 Performed By: #### L500.4050, L503.6030, L503.6550, L506.0250 #### [facility] [address] [place], [address] IRON+IRON BINDING Collected: 09/06/2017 Status: F Source: [facility] 7:29 AM [facility] REPOSITORY Order Comment: Is Patient Taking Vitamins or Folic Acid Supplements? N TYPE CODE TESTS RESULT OUT OF RANGE REFERENCE UNITS LAB L503.6075 250-450 ug/dL TIBC Normal 285 LAB L503.6150 50-170 ug/dL IRON Normal 112 LAB L503.6250 15.0-55.0 % IRON Normal SATURATION 39.3 Performed By: #### L500.4050, L503.6030, L503.6550, L506.0250 #### [facility] [address] [place], [address] FERRITIN Collected: 09/06/2017 Status: F Source: [facility] 7:29 AM [facility] REPOSITORY Order Comment: Is Patient Taking Vitamins or Folic Acid Supplements? N TYPE CODE TESTS RESULT OUT OF RANGE REFERENCE UNITS LAB L503.6550 8-252 ng/mL Normal FERRITIN 153 Performed By: #### L500.4050, L503.6030, L503.6550, L506.0250 #### [facility] [address] [place], [address] FOLATES, (FOLIC ACID) Collected: 09/06/2017 Status: F Source: [facility] 7:29 AM [facility] REPOSITORY Order Comment: Is Patient Taking Vitamins or Folic Acid Supplements? N TYPE CODE TESTS RESULT OUT OF RANGE REFERENCE UNITS LAB L506.0250 3.1-55.4 ng/mL Normal FOLATES 37.50 Performed By: #### L500.4050, L503.6030, L503.6550, L506.0250 #### [facility] [address] [place], [address] VITAMIN B12 Collected: 09/06/2017 Status: F Source: [facility] 7:29 AM [facility] REPOSITORY TYPE CODE TESTS RESULT OUT OF RANGE REFERENCE UNITS LAB L503.0105 211-911 pg/mL Normal Vitamin B12 705 Performed By: #### L503.0105, L506.1000 #### [facility] [address] [place], [address] VITAMIN D,25 HYDROXY Collected: 09/06/2017 Status: F Source: [facility] 7:29 AM [facility] REPOSITORY TYPE CODE TESTS RESULT OUT OF REFERENCE UNITS RANGE LAB L506.1000 29.95-100.01 ng/mL Low Vitamin D 29.7 25-OH Result Comment: Vitamin D 25(OH) Status Range Deficiency <20 ng/mL (50nmol/L) Insuffciency 20 - 30 ng/mL (50 - 75 nmol/L) Sufficiency 30 - 100 ng/mL (75 - 250 nmol/L) Toxicity >100 ng/mL (>250 nmol/L) Performed By: #### L503.0105, L506.1000 #### [facility] [address] [place], [address] PTHIN Collected: 09/06/2017 Status: F Source: [facility] 7:29 AM [facility] REPOSITORY TYPE CODE TESTS RESULT OUT OF RANGE REFERENCE UNITS LAB L509.1000 18.4-80.1 pg/mL Low PTHIN 13.7 Performed By: #### L509.1000 #### [facility] [address] [place], [address] COPPER, SERUM OR Collected: 09/06/2017 Status: F Source: [facility] 7:29 AM [facility] REPOSITORY Order Comment: Specimen Comment: A duplicate report has been generated due to demographic Specimen Comment: updates. TYPE CODE TESTS RESULT OUT OF RANGE REFERENCE UNITS LAB L3300.0100 72-166 ug/dL Normal COPPER 77 Result Comment: Detection Limit = 5 Performed at: [address] [id number] Certified Personal Chef: Deejay Marques MD, Phone: [phone] Performed By: #### L3300.0100, L3300.8000 #### [facility] (refer to report for specific site) refer to report for address and phone number VITAMIN B1, THIAMINE Collected: 09/06/2017 Status: F Source: [facility] 7:29 AM [facility] REPOSITORY Order Comment: Specimen Comment: A duplicate report has been generated due to demographic Specimen Comment: updates. TYPE CODE TESTS RESULT OUT OF RANGE REFERENCE UNITS LAB L3300.8000 66.5-200.0 nmol/L Normal VIT B1 130.8 Result Comment: This test was developed and its performance characteristics determined by [employer]. It has not been cleared or approved by the Food and Drug Administration. Performed By: #### L3300.0100, L3300.8000 #### [facility] (refer to report for specific site) refer to report for address and phone number CBC W/DIFF, AUTOMATED Collected: 08/13/2017 Status: F Source: [facility] 2:20 PM [facility] REPOSITORY TYPE CODE TESTS RESULT OUT OF RANGE REFERENCE UNITS LAB L100.1000 4.4-11.0 K/mm3 Normal WBC 5.6 LAB L100.1200 4.2-5.4 M/mm3 Low RBC 3.94 LAB L100.1300 12.0-15.0 g/dl Normal HGB 12.0 LAB L100.1400 37-47 % Low HCT 36.7 LAB L100.1500 81-99 fL Normal MCV 93.1 LAB L100.1600 27.0-32.0 pg Normal MCH 30.5 LAB L100.1700 32-36 g/gl Normal MCHC 32.7 LAB L100.1810 11.6-14.6 % Normal RDW CV 13.9 LAB L100.1820 35.1-43.9 fl High RDW SD 47.4 LAB L100.1900 150-450 K/mm3 Normal PLT 216 LAB L100.2000 6.2-12.0 fl Normal MPV 11.5 LAB L100.2100 47-70 % Low NEUT% 34.4 LAB L100.2200 19-41 % High LY% 48.7 LAB L100.2300 0-10 % High MONO% 13.3 LAB L100.2400 0-5 % Normal EO% 2.9 LAB L100.2500 0-1 % Normal BASO% 0.7 LAB L100.2550 0.0-0.9 % Normal IM GRAN % 0.000 Result Comment: IG% - Immature Granulocytes (promyelocytes, myelocytes and metamyelocytes) > 1% indicates that a LEFT SHIFT is Present. LAB L100.2620 2.0-7.7 X10 3/uL Low Absolute Neut 1.9 LAB L100.2720 0.83-4.51 X10 3/ul Normal Absolute Lymph 2.71 Performed By: #### L100.0100 #### [facility] [address] [place], [place], [address] COMPREHENSIVE METABOLIC Collected: 08/13/2017 Status: F Source: [facility] 2:20 PM [facility] REPOSITORY TYPE CODE TESTS RESULT OUT OF RANGE REFERENCE UNITS LAB L501.0100 74-106 mg/dL Normal GLU 99 Result Comment: Please note revised GLUCOSE reference range effective 2017. LAB L501.1000 7-18 mg/dL Normal BUN 14 LAB L501.1100 0.55-1.02 mg/dL Low CREAT,SERUM 0.48 Result Comment: The validity of the calculated GFR AND GFRAA in patients over 70 years has not been determined. Clinical correlation is essential. LAB L501.1110 >60 mL/min Normal EST GFR 151 Result Comment: Non- GFR Calc LAB L501.1115 >60 mL/min Normal EST GFR - AA 182 Result Comment: GFR Calc LAB L501.1300 10-20 RATIO High BUN/CRE 29.0 LAB L501.1500 6.4-8.2 g/dL T Normal PROT 6.7 LAB L501.1800 3.2-5.0 g/dL Normal ALB 3.6 LAB L501.1950 2.2-4.2 g/dL Normal GLOB 3.1 LAB L501.2000 0.9-2.4 RATIO Normal A/G 1.2 LAB L501.2200 8.5-10.1 mg/dL CA Normal 8.6 LAB L501.4100 15-37 U/L Normal AST 32 LAB L501.4305 45-117 U/L Normal ALK P 51 LAB L501.4405 13-56 U/L Normal ALT 52 LAB L501.4600 0.20-1.00 mg/dL T Normal BILI 0.40 LAB L501.5300 136-145 mmol/L NA Normal 143 LAB L501.5600 3.5-5.1 mmol/L K Normal 3.6 LAB L501.5900 98-107 mmol/L High CL 108 LAB L501.6100 21.0-32.0 mmol/L Normal CO2 26.0 LAB L501.6200 5-15 Normal GAP 9 Performed By: #### L500.4050, L501.1400, L501.9520 #### [facility] [address] [place], [place], [address] URIC ACID Collected: 08/13/2017 Status: F Source: [facility] 2:20 PM [facility] REPOSITORY TYPE CODE TESTS RESULT OUT OF RANGE REFERENCE UNITS LAB L501.1400 2.6-6.0 mg/dL Normal URIC 5.4 Result Comment: The drugs N-Acetylcysteine and Metamizole may falsely depress this assay. Performed By: #### L500.4050, L501.1400, L501.9520 #### [facility] [address] [place], [place], [id number] THYROID STIM HORMONE Collected: 08/13/2017 Status: F Source: [facility] (TSH) 2:20 PM [facility] REPOSITORY TYPE CODE TESTS RESULT OUT OF RANGE REFERENCE UNITS LAB L501.9520 0.358-3.74 uIU/mL Normal TSH 1.25 Performed By: #### L500.4050, L501.1400, L501.9520 #### [facility] [address] [place], [place], [address] POCT GLUCOSE Collected: 06/13/2017 Status: F Source: [facility] 11:44 AM SYSTEM REPOSITORY TYPE CODE TESTS RESULT OUT OF REFERENCE UNITS RANGE LAB PCGL 65-99 MG/DL High POCT GLUCOSE 109 Performed By: #### PCGL #### [facility] [address] [place] [address] POCT GLUCOSE Collected: 06/13/2017 Status: F Source: [facility] 8:03 AM SYSTEM REPOSITORY TYPE CODE TESTS RESULT OUT OF REFERENCE UNITS RANGE LAB PCGL 65-99 MG/DL POCT GLUCOSE 98 Performed By: #### PCGL #### [facility] [address] [place] [address] POCT GLUCOSE Collected: 06/12/2017 Status: F Source: [facility] 10:19 PM SYSTEM REPOSITORY TYPE CODE TESTS RESULT OUT OF REFERENCE UNITS RANGE LAB PCGL 65-99 MG/DL POCT GLUCOSE 99 Performed By: #### PCGL #### [facility] [address] [place] [address] POCT GLUCOSE Collected: 06/12/2017 Status: F Source: [facility] 8:08 PM SYSTEM REPOSITORY TYPE CODE TESTS RESULT OUT OF REFERENCE UNITS RANGE LAB PCGL 65-99 MG/DL POCT GLUCOSE 95 Performed By: #### PCGL #### [facility] [address] [place] [address] POCT GLUCOSE Collected: 06/12/2017 Status: F Source: [facility] 2:33 PM SYSTEM REPOSITORY TYPE CODE TESTS RESULT OUT OF REFERENCE UNITS RANGE LAB PCGL 65-99 MG/DL POCT GLUCOSE 81 Performed By: #### PCGL #### [facility] [address] [place] [address] POCT GLUCOSE Collected: 06/12/2017 Status: F Source: [facility] 10:18 AM SYSTEM REPOSITORY TYPE CODE TESTS RESULT OUT OF REFERENCE UNITS RANGE LAB PCGL 65-99 MG/DL High POCT GLUCOSE 111 Performed By: #### PCGL #### [facility] [address] [place] [address] UGI W COOKIEB Observed: 06/12/2017 Status: F Source: [facility] 8:32 AM SYSTEM REPOSITORY *FINAL Date of Service: 06/12/2017 08:32 Adm #: [id number] Reading Dr:KITTY DEE Signoff Dr: KITTY DEE PROCEDURE: UGI W KETAN - WXR 0132 REASON FOR EXAM: Post Laparoscopic Gastric Bypass RESULT: CLINICAL HISTORY: Post gastric bypass COMPARISON: None available TECHNIQUE: Multiple fluoroscopic spot images were obtained during a Omnipaque contrast upper GI with KUB. Total fluoroscopy time: 55 Seconds, images: 25, DAP: 115.5 mGy FINDINGS: KUB shows multiple surgical clips in left upper quadrant, nonobstructive bowel gas pattern and clear lung bases. There is prompt esophageal transit. Small gastric pouch with patent gastrojejunostomy and no evidence for leak. IMPRESSION: Normal postop exam. This report has been produced using speech recognition. Original Interpreting Physician: KITTY DEE MD Original Transcribed by/Date: PSCB Jun 14 2017 10:58A Original Electronically Signed by/Date: KITTY DEE MD Jun 14 2017 10:58A Addendum Interpreting Physician: Addendum Transcribed by/Date: NO ADDENDUM Addendum Electronically Signed by/Date: POCT GLUCOSE Collected: 06/12/2017 Status: F Source: [facility] 6:36 AM SYSTEM REPOSITORY TYPE CODE TESTS RESULT OUT OF REFERENCE UNITS RANGE LAB PCGL 65-99 MG/DL POCT GLUCOSE 93 Performed By: #### PCGL #### [facility] [address] [place] [address] POCT GLUCOSE Collected: 06/12/2017 Status: F Source: [facility] 2:00 AM SYSTEM REPOSITORY TYPE CODE TESTS RESULT OUT OF REFERENCE UNITS RANGE LAB PCGL 65-99 MG/DL POCT GLUCOSE 81 Performed By: #### PCGL #### [facility] [address] [place] [address] POCT GLUCOSE Collected: 06/11/2017 Status: F Source: [facility] 11:43 AM SYSTEM REPOSITORY TYPE CODE TESTS RESULT OUT OF REFERENCE UNITS RANGE LAB PCGL 65-99 MG/DL High POCT GLUCOSE 144 Performed By: #### PCGL #### [facility] [address] [place] [address] POCT GLUCOSE Collected: 06/11/2017 Status: F Source: [facility] 9:46 AM SYSTEM REPOSITORY TYPE CODE TESTS RESULT OUT OF REFERENCE UNITS RANGE LAB PCGL 65-99 MG/DL High POCT GLUCOSE 145 Performed By: #### PCGL #### [facility] [address] [place] [address] POCT GLUCOSE Collected: 06/11/2017 Status: F Source: [facility] 7:15 AM SYSTEM REPOSITORY TYPE CODE TESTS RESULT OUT OF REFERENCE UNITS RANGE LAB PCGL 65-99 MG/DL High POCT GLUCOSE 112 Performed By: #### PCGL #### [address] [address] PLATELET Collected: 06/11/2017 Status: F Source: [facility] 7:08 AM SYSTEM REPOSITORY TYPE CODE TESTS RESULT OUT OF REFERENCE UNITS RANGE LAB PLT 150-450 PLATELET Result Comment: 280 Performed at [address] [address] Performed By: #### PLT #### [facility] [address] [address] COMPREHENSIVE METABOLIC Collected: 05/22/2017 Status: F Source: [facility] 4:17 PM [facility] REPOSITORY TYPE CODE TESTS RESULT OUT OF RANGE REFERENCE UNITS LAB L501.0100 74-106 mg/dL High GLU 138 Result Comment: Fasting Glucose result greater than or equal to 126 mg/dL suggests DIABETES MELLITUS per A.D.A. criteria. Please note revised GLUCOSE reference range effective 2017. LAB L501.1000 7-18 mg/dL Normal BUN 15 LAB L501.1100 0.55-1.02 mg/dL Normal CREAT,SERUM 0.68 Result Comment: The validity of the calculated GFR AND GFRAA in patients over 70 years has not been determined. Clinical correlation is essential. LAB L501.1110 >60 mL/min Normal EST GFR 102 Result Comment: Non- GFR Calc LAB L501.1115 >60 mL/min Normal EST GFR - AA 123 Result Comment: GFR Calc LAB L501.1300 10-20 RATIO High BUN/CRE 22.2 LAB L501.1500 6.4-8.2 g/dL T Normal PROT 7.5 LAB L501.1800 3.2-5.0 g/dL Normal ALB 4.1 LAB L501.1950 2.2-4.2 g/dL Normal GLOB 3.4 LAB L501.2000 0.9-2.4 RATIO Normal A/G 1.2 LAB L501.2200 8.5-10.1 mg/dL CA Normal 9.3 LAB L501.4100 15-37 U/L Normal AST 15 LAB L501.4305 45-117 U/L Normal ALK P 58 LAB L501.4405 13-56 U/L Normal ALT 26 Result Comment: Please note revised ALT reference range effective 2017. LAB L501.4600 0.20-1.00 mg/dL Normal T BILI 0.60 LAB L501.5300 136-145 mmol/L Normal NA 137 LAB L501.5600 3.5-5.1 mmol/L Normal K 3.7 LAB L501.5900 98-107 mmol/L Normal CL 101 LAB L501.6100 21.0-32.0 mmol/L Normal CO2 24.0 LAB L501.6200 5-15 Normal GAP 12 Performed By: #### L500.4050 #### [facility] [address] [place], [address] CBC W/DIFF, AUTOMATED Collected: 05/22/2017 Status: F Source: [facility] 4:17 PM [facility] REPOSITORY TYPE CODE TESTS RESULT OUT OF RANGE REFERENCE UNITS LAB L100.1000 4.4-11.0 K/mm3 Normal WBC 9.6 LAB L100.1200 4.2-5.4 M/mm3 Normal RBC 4.77 LAB L100.1300 12.0-15.0 g/dl High HGB 15.1 LAB L100.1400 37-47 % Normal HCT 44.7 LAB L100.1500 81-99 fL Normal MCV 93.7 LAB L100.1600 27.0-32.0 pg Normal MCH 31.7 LAB L100.1700 32-36 g/gl Normal MCHC 33.8 LAB L100.1810 11.6-14.6 % Normal RDW CV 13.8 LAB L100.1820 35.1-43.9 fl High RDW SD 45.3 LAB L100.1900 150-450 K/mm3 Normal PLT 306 LAB L100.2000 6.2-12.0 fl Normal MPV 10.8 LAB L100.2100 47-70 % Normal NEUT% 53.3 LAB L100.2200 19-41 % Normal LY% 35.1 LAB L100.2300 0-10 % Normal MONO% 8.8 LAB L100.2400 0-5 % Normal EO% 1.8 LAB L100.2500 0-1 % Normal BASO% 0.6 LAB L100.2550 0.0-0.9 % Normal IM GRAN % 0.400 Result Comment: IG% - Immature Granulocytes (promyelocytes, myelocytes and metamyelocytes) > 1% indicates that a LEFT SHIFT is Present. LAB L100.2620 2.0-7.7 X10 3/uL Normal Absolute Neut 5.1 LAB L100.2720 0.83-4.51 X10 3/ul Normal Absolute Lymph 3.37 Performed By: #### L100.0100 #### [facility] [address] [place], [address] ALLERGIES ALLERGIES DATE TYPE / CODE NAME / CODE REACTION SEVERITY SOURCE 03/19/2017 Drug No Known Unknown [facility] Allergy/416 Allergies/[id number] Hospital 725427(SNOM 0388(RXNORM) Repository ED CT) Drug NO KNOWN [facility] Class/23017 ALLERGIES [address] [place] 1003(SNOMED Repository CT) ENCOUNTERS ENCOUNTERS ADMIT/DISCHARGE ACCOUNT NUMBER ADMITTING ENCOUNTER LOCATION SOURCE CLASS 04/23/2018 [id number] [facility] ding:PSN Repository 04/18/2018 [id number] [facility] ding:LAB Repository 03/21/2018/03/28/20 [id number] Ambulatory [address] [place] Repository 03/18/2018 [id number] [facility] ding:LAB.FUT Repository URE 02/12/2018 [id number] [facility] ding:LAB Repository 10/21/2017 [id number] [facility] ding:MTLAB Repository 09/06/2017 [id number] [facility] ding:MTLAB Repository 08/13/2017 [id number] [facility] ding:POLAB3 Repository 06/11/2017/06/14/19 [id number] [place]patient [place] [address] Encounter ing:[id number] [facility]ELD[facility] System DIV4 Repository NORTHRoom: V527Pnt: [id number] 05/22/2017 [id number] Ambulatory [place] [facility] ding:MTLAB Repository PAYERS PAYERS ENCOUNTER GUARANTOR PAYER SUBSCRIBER SOURCE 04/23/2018 OSVALDO Fournier Primary Insurance:[facility] [address] [facility] [id number] [place] [address]Fey: Number: Repository [id number] (HP) Date:1952-67-76[address] [address]QJVDVBQTF, [place] [address]ML: CHECK WEBSITE 04/23/2018 Secondary NOT GIVENUNK Kyler Insurance:SELF PAY [facility] Number: Effective Repository Date:2018-04-23 04/18/2018 OSVALDO Fournier Primary Insurance:[facility] NOLAN [address] [facility] [id number] [place] [address]Htr: Number: Repository [id number] (HP) Date:2728-26-34[address] [address]TRMDQCTFN, [place] [address]GO: CHECK WEBSITE 04/18/2018 Secondary NOT GIVENUNK Kyler Insurance:SELF PAY [facility] Number: Effective Repository Date:2018-04-18 03/18/2018 OSVALDO Fournier Primary Insurance:[facility] NOLAN [address] [facility] [id number] [place] [address]Duw: Number: Repository [id number] (HP) Date:4059-00-27[address] [address]LXXSWO[place]A, [place] [address]PE: CHECK WEBSITE 03/18/2018 Secondary NOT GIVENUNK [place] Insurance:SELF PAY [facility] Number: Effective Repository Date:2018-02-19 02/12/2018 OSVALDO Fournier Primary Insurance:[facility] NOLAN [address] [facility] [id number] [place] [address]Nzt: Number: Repository [id number] (HP) Date:4251-18-05NZ [address] [address]QMZSFGBVI, [place] [address]JI: CHECK WEBSITE 02/12/2018 Secondary NOT GIVENUNK Kyler Insurance:SELF PAY [facility] Number: Effective Repository Date:2018-02-12 10/21/2017 OSVALDO Fournier Primary Insurance:[facility] NOLAN [address] [facility] [id number] [facility] [address]Ioy: Number: Repository [id number] (HP) Date:7577-08-14[address] [address]ZRQZORKBY, [place] [address]WO: CHECK WEBSITE 10/21/2017 Secondary NOT GIVENUNK [place] Insurance:SELF PAY [facility] Number: Effective Repository Date:2017-10-21 09/06/2017 OSVALDO Fournier Primary Insurance:[facility] NOLAN Chávez [id number] [place], [place] [address]OB: [facility] [id number] Health Care Center [address]Dfz: Number: Repository [id number] (HP) Date:4057-48-67[address] [address]NEVFFQXMC, [place] [address]DT: CHECK WEBSITE 09/06/2017 Secondary NOT GIVENUNK [place] Insurance:SELF PAY [facility] Number: Effective Repository Date:2017-09-06 08/13/2017 OSVALDO Fournier Primary Insurance:[facility] Nolan [address] [facility] [id number] Health Care Center [address]Lqj: Number: Repository [id number] (HP) Date:3229-52-97IQ [address] [address]SKVSFTMUF, [place] [address]VA: CHECK WEBSITE 08/13/2017 Secondary NOT GIVENUNK Kyler Insurance:SELF PAY [facility] Number: Effective Repository Date:2017-08-13 06/11/2017 [facility] Insurance:[employer] MUSSELMANDOB: System [facility] [id number] Repository [facility], Number: [address] [facility] [address]Ykn: [id number] [place], [place] Date:Plan [id number]: (628) (HP) Name:[facility] [phone] () [address]BIYXVVUVB, [place] [id number]: 05/22/2017 OSVALDO Fournier Primary Insurance:[facility] Nolan HUERTAMAN[address] [facility] [id number] Health Care Center [address]Zwq: Number: Repository [id number] () Date:1924-74-55CQ [address] [address]CZBVLZWFK, [place] [address]VY: CHECK WEBSITE 05/22/2017 Secondary NOT GIVENANABELLE Chávez Insurance:SELF PAY [facility] Number: Effective Repository Date:2017-05-22
== END ==
PROVIDERS: Family Provider Family Medicine Geriatric Medicine; PCP Family Medicine Geriatric Medicine; Visit Provider Family Medicine Geriatric Medicine
DX: K76.9 Liver disease, unspecified (principal)
CPT/HCPCS: 36415; 80053

== ENCOUNTER → 2018-04-18 11:43 | Outpatient (CLI) | payer OTHER, SELFPAY ==
[2018-04-18 13:12] LABS: PTHIN 17.6 pg/mL (18.4-80.1); Vitamin B12 551 pg/mL (211-911)
[2018-04-22 16:34] LABS: Vitamin B1, Thiamine 198.9 nmol/L (66.5-200.0)
--- OUTSIDE RECORDS SUMMARY | 2018-06-22 23:38 | XMS RPT_ITS ---
:1975 Author Organization OHIP Support Name Relationship Address Phone [employer] Unavailable [address] + [place] [address] NOLAN CASTILLO Unavailable [address] + [place] [address] [employer] Unavailable [address] + [place] [address] NOLAN CASTILLO Unavailable [address] + [place] [address] [employer] Unavailable [address] + [place] [address] NOLAN CASTILLO Unavailable [address] + [place] [address] [employer] Unavailable [address] + [place] [address] NOLAN CASTILLO Unavailable [address] + [place] [address] [employer] Unavailable [address] + [place] [address] KAMI NOLAN Unavailable [address] + [place] [address] [employer] Unavailable [address] + [place] [address] TALIA CASTILLOIAN Unavailable [address] + [place] [address] [employer] Unavailable [address] + [place] [address] NOLAN CASTILLO Unavailable [address] + [place] [address] NOLAN CASTILLO Unavailable Unavailable + NOT GIVEN Unavailable Un[place] [address] [employer] Unavailable [address] + [place] [address] KAMI, NOLAN Unavailable [address] + [place] [address] Care Team Providers Name Role Phone JON HAMILTON JACKSON Attending Unavailable SUNDAR GUARDADO MD Attending Unavailable UNASSIGNED, DOCTOR Primary Care Unavailable KAVON ABEBE Attending Unavailable [...] - Fever, John, Luis E Chi Active [place] unspecified / Community R50.9(ICD-10) Hospital Repository 04/18/2018 Unknown 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 Active [place] malabsorption, Community unspecified / Hospital K90.9(ICD-10) Repository 04/18/2018 Unknown E53.8 - Deficiency KAVON ABEBE Active [place] of other specified B Community group vitamins / Hospital E53.8(ICD-10) Repository 02/12/2018 Unknown E55.9 - Vitamin D John, Luis E Chi Active [place] deficiency, Community unspecified / Hospital E55.9(ICD-10) Repository 02/12/2018 Unknown E11.9 - Type 2 John, Luis E Chi Active [place] diabetes mellitus Community without Hospital complications / Repository E11.9(ICD-10) 02/12/2018 Unknown M54.9 - Dorsalgia, John, Luis E Chi Active [place] unspecified / Community M54.9(ICD-10) Hospital Repository 02/12/2018 Unknown M17.9 - John, Luis E Chi Active [place] Osteoarthritis of Community knee, unspecified / Hospital M17.9(ICD-10) Repository 02/12/2018 Unknown M54.5 - Low back John, Luis E Chi Active [place] pain / M54.5(ICD-10) Community Hospital Repository 02/12/2018 Unknown M25.569 - Pain in John, Luis E Chi Active [place] unspecified knee / Community M25.569(ICD-10) Hospital Repository 11/22/2017 Unknown R74.0 - Nonspecific KAVON ABEBE elevation of levels Community of [facility] and Hospital lactic acid Repository dehydrogenase [LDH] / R74.0(ICD-10) 11/28/2017 Unknown Z09 - Encounter for KAVON ABEBE follow-up Community examination after Hospital completed treatment Repository for conditions other than malignant neoplasm / Z09(ICD-10) 06/11/2017 Admitting Morbid (severe) NETTIE-KHOI, Expan Diagnosis obesity due to [facility] excess calories / Repository E66.01(ICD-10) 06/11/2017 Final Diagnosis Morbid (severe) NETTIE-KHOI, SUNDARCorrigo (Discharge) obesity due to [facility] excess calories / Repository E66.01(ICD-10) 06/11/2017 Final Diagnosis Type 2 diabetes NETTIE-KHOI, Expan (Discharge) mellitus with [facility] unspecified Repository complications / E11.8(ICD-10) 06/11/2017 Final Diagnosis Obstructive sleep NETTIE-KHOI, Expan (Discharge) apnea (adult) [facility] (pediatric) / Repository G47.33(ICD-10) 06/11/2017 Final Diagnosis Hypothyroidism, NETTIE-KHOI, SUNDAR [employer] (Discharge) unspecified / [facility] System E03.9(ICD-10) Repository 06/11/2017 Final Diagnosis Essential (primary) NETTIE-KHOI, SUNDAR [employer] (Discharge) hypertension / [facility] I10(ICD-10) Repository 06/11/2017 Final Diagnosis Gastro-esophageal NETTIE-KHOI, Expan (Discharge) reflux disease [facility] without esophagitis Repository / K21.9(ICD-10) 06/11/2017 Final Diagnosis Hyperlipidemia, NETTIE-KHOI, SUNDAR [facility] (Discharge) unspecified / MD System E78.5(ICD-10) Repository 06/11/2017 Final Diagnosis Primary generalized NETTIE-KHOI, SUNDAR Active [facility] (Discharge) (osteo)arthritis / MD System M15.0(ICD-10) Repository 06/11/2017 Final Diagnosis Stress incontinence SUNDAR GUARDADO [facility] (Discharge) (female) (male) / MD System N39.3(ICD-10) Repository 06/11/2017 Final Diagnosis Family hx of ischem [facility] (Discharge) heart dis and oth MD System dis of the circ sys Repository / Z82.49(ICD-10) 06/11/2017 Final Diagnosis Body mass index SUNDAR GUARDADO [facility] (Discharge) (BMI) 40.0-44.9, MD System adult / Repository Z68.41(ICD-10) 05/22/2017 Unknown G47.33 - Obstructive KAVON ABEBE [facility] sleep apnea (adult) [facility] (pediatric) / Hospital G47.33(ICD-10) Repository PROCEDURES PROCEDURES No Procedure Records FoundRESULTS RESULTS Observed: 04/23/2018 Status: F Source: [place] RESPIRATORY PANEL 12:31 PM [facility]/23[facility] 1512 Anette Martins. Copy of report sent to Infection Control Printer MS#[id number] 04/23/18 0268 DAVID. Normal Reference Range = Not Detected [...] (SUBTYPE H1) Performed By: #### M100.638 #### [facility] [address] [place], [place], [address] PTHIN Collected: 04/18/2018 Status: F Source: [place] 12:09 PM [facility] TYPE CODE TESTS RESULT OUT OF RANGE REFERENCE UNITS LAB L509.1000 18.4-80.1 pg/mL Low PTHIN 17.6 Performed By: #### L509.1000 #### [facility] [address] [place], [address] VITAMIN B12 Collected: 04/18/2018 Status: F Source: [place] 12:09 PM [facility] TYPE CODE TESTS RESULT OUT OF RANGE REFERENCE UNITS LAB L503.0105 211-911 pg/mL Normal Vitamin B12 551 Performed By: #### L503.0105 #### [facility] [address] [place], [address] VITAMIN B1, THIAMINE Collected: 04/18/2018 Status: F Source: [place] 12:09 PM [facility] TYPE CODE TESTS RESULT OUT OF RANGE REFERENCE UNITS LAB L3300.8000 66.5-200.0 nmol/L Normal VIT B1 198.9 Result Comment: This test was developed and its performance characteristics determined by [facility]. It has not been cleared or approved by the Food and Drug Administration. Performed at: [address] [id number] Relationship Executive: Patricia Washington MD, Phone: [phone] Performed By: #### L3300.8000 #### [facility] (refer to report for specific site) refer to report for address and phone number PROGRESS Observed: 03/21/2018 Status: COMPLETED Source: [place] 3:01 PM [facility] REPOSITORY HNO ID: [id number] Author: Hamilton Jackson Service: (none) Author Type: [...] IUD source: office provided IUD lot #: [id number] Exp date: 07/2020 UNIVERSAL PROTOCOL / SAFETY [...] MD CNOV Observed: 03/21/2018 Status: COMPLETED Source: [place] 3:00 PM [facility] REPOSITORY Office Visit (WOOB) OSVALDO CASTILLO ([id number]) 1975 F Date Time Provider Department 03/21/18 [...] IUD source: office provided IUD lot #: [id number] Exp date: 07/2020 UNIVERSAL PROTOCOL / SAFETY [...] for IUD removal [Z30.432] Order(s):INSERT INTRAUTERINE DEVICE [[id number]] Order #: [id number] REMOVE INTRAUTERINE DEVICE [[id number]] Order #: [id number] [] levonorgestrel 20 mcg/24 hr (5 years) [...] [place] RHONDA 1:14 PM [facility] TYPE CODE TESTS RESULT OUT OF [...] GAP 8 Performed By: #### L500.4050 #### [facility] [address] [facility] [place], [address] KNEE 4 OR MORE Observed: 02/12/2018 Status: F Source: [facility] 9:06 AM [facility] Imaging Services [address] [place] [address] Knee 4 or More Views MR#: [id number] Acct: [id number] Name: OSVALDO CASTILLO Rep #: [id number] : 1975 F 42 From: Laurence Goodman MD PCP: John LOVE,Luis E Topete Status: REG CLI Study: Knee 4 or More Views Date of Exam: 02/12/18 Exam# [id number] Ordering Dr: Luis E Lopez MD STUDY: [...] support , CC: Luis E Lopez MD [employer] Driver: Signed KNEE 4 OR MORE Observed: 02/12/2018 Status: F Source: [place] VIEWS 9:06 AM [facility] Imaging Services [address] [place] [address] Knee 4 or More Views MR#: [id number] Acct: [id number] Name: OSVALDO CASTILLO Rep #: [id number] : 1975 F 42 From: Laurence Goodman MD PCP: Luis E Lopez MD, Chi Status: REG CLI Study: Knee 4 or More Views Date of Exam: 02/12/18 Exam# [id number] Ordering Dr: Luis E Lopez MD STUDY: [...] support , CC: Luis E Lopez MD [employer] Driver: Signed HIPS B/L MIN 2 Observed: 02/12/2018 Status: F Source: [place] VIEWS W/ PELVIS 9:06 AM [facility] Imaging Services [facility] [place] [address] Hips B/L min 2 views w/ Pelvis MR#: [id number] Acct: [id number] Name: OSVALDO CASTILLO Rep #: [id number] : 1975 F 42 From: Laurence Goodman MD PCP: Luis E Lopez MD, Chi Status: REG CLI Study: Hips B/L min 2 views w/ Pelvis Date of Exam: 02/12/18 Exam# [id number] Ordering Dr: Luis E Lopez MD STUDY: [...] support , CC: Luis E Lopez MD [employer] Driver: Signed SACRUM-COCCYX MIN 2 VIEWS Observed: 02/12/2018 Status: F Source: [place] 9:06 AM [facility] Imaging Services [address] [place] [address] Sacrum-Coccyx min 2 Views MR#: [id number] Acct: [id number] Name: OSVALDO CASTILLO Rep #: [id number] : 1975 F 42 From: Laurence Goodman MD PCP: John LOVE,Luis E Topete Status: REG CLI Study: Sacrum-Coccyx min 2 Views Date of Exam: 02/12/18 Exam# [id number] Ordering Dr: Luis E Lopez MD STUDY: [...] support , CC: Luis E Lopez MD [employer] Driver: Signed LUMBAR SPINE 2 OR 3 Observed: 02/12/2018 Status: F Source: [place] VIEWS 9:06 AM [facility] Imaging Services [address] [place] [address] Lumbar Spine 2 or 3 Views MR#: [id number] Acct: [id number] Name: OSVALDO CASTILLO Rep #: [id number] : 1975 F 42 From: Nino Toro PCP: John LOVE,Luis E Topete Status: REG CLI Study: Lumbar Spine 2 or 3 Views Date of Exam: 02/12/18 Exam# [id number] Ordering Dr: Luis E Lopez MD STUDY: [...] support , CC: Luis E Lopez MD [employer] Driver: Signed CBC W/DIFF, AUTOMATED Collected: 02/12/2018 Status: F Source: [place] 8:54 AM [facility] TYPE CODE TESTS RESULT OUT OF [...] Lymph 1.76 Performed By: #### L100.0100 #### [facility] [place], [address] VITAMIN D,25 HYDROXY Collected: 02/12/2018 Status: F Source: [place] 8:54 AM [facility] TYPE CODE TESTS RESULT OUT OF RANGE REFERENCE UNITS LAB L506.1000 29.95-100.01 ng/mL Normal Vitamin D 33.0 25-OH Result Comment: Vitamin D 25(OH) Status Range Deficiency <20 ng/mL (50nmol/L) Insuffciency 20 - 30 ng/mL (50 - 75 nmol/L) Sufficiency 30 - 100 ng/mL (75 - 250 nmol/L) Toxicity >100 ng/mL (>250 nmol/L) Performed By: #### L506.1000 #### [facility] [place], [address] COMPREHENSIVE METABOLIC Collected: 02/12/2018 Status: F Source: [place] [facility] 8:54 AM [facility] TYPE CODE TESTS RESULT OUT OF [...] Performed By: #### L500.4050, L501.1400, L501.9520 #### [facility] [address] [place], [place], [address] URIC ACID Collected: 02/12/2018 Status: F Source: [place] 8:54 AM [facility] TYPE CODE TESTS RESULT OUT OF RANGE REFERENCE UNITS LAB L501.1400 2.6-6.0 mg/dL Normal URIC 3.4 Result Comment: The drugs N-Acetylcysteine and Metamizole may falsely depress this assay. Performed By: #### L500.4050, L501.1400, L501.9520 #### [facility] [place], [place], [address] THYROID STIM HORMONE Collected: 02/12/2018 Status: F Source: [place] (TSH) 8:54 AM [facility] TYPE CODE TESTS RESULT OUT OF RANGE REFERENCE UNITS LAB L501.9520 0.358-3.74 uIU/mL Normal TSH 0.60 Performed By: #### L500.4050, L501.1400, L501.9520 #### [facility] [place], [place], [address] LIVER PROFILE Collected: 10/21/2017 Status: F Source: [place] 7:36 AM [facility] TYPE CODE TESTS RESULT OUT OF [...] BILI 0.13 Performed By: #### L500.3400 #### [facility] [address] [place], [address] DOWNTIME REPORT Observed: 09/19/2017 Status: F Source: [place] 1:23 PM [facility] Medical Records Department [address] [place] [address] Downtime Report MR#: [id number] Acct: [id number] Name: OSVALDO CASTILLO Rep #: [id number] : 1975 42 From: Morris Alexander PCP: John LOVE,[employer] Status: REG CLI This patient was seen during an EMR downtime September 02, 2017 - September 09, 2017. This patient may have a combination of paper and electronic documentation or all paper documentation. All documentation is viewable within the e-chart portion of [employer] for each patient visit. CBC W/DIFF, AUTOMATED Collected: 09/06/2017 Status: F Source: [place] 7:29 AM [facility] TYPE CODE TESTS RESULT OUT OF [...] Lymph 1.91 Performed By: #### L100.0100 #### [facility] [address] [place], [address] COMPREHENSIVE METABOLIC Collected: 09/06/2017 Status: F Source: [facility] 7:29 AM [facility] Order Comment: Is Patient Taking Vitamins [...] By: #### L500.4050, L503.6030, L503.6550, L506.0250 #### [facility] [address] [place], [address] IRON+IRON BINDING Collected: 09/06/2017 Status: F Source: [facility] 7:29 AM [facility] Order Comment: Is Patient Taking Vitamins or Folic Acid Supplements? N TYPE CODE TESTS RESULT OUT OF RANGE REFERENCE UNITS LAB L503.6075 250-450 ug/dL TIBC Normal 285 LAB L503.6150 50-170 ug/dL IRON Normal 112 LAB L503.6250 15.0-55.0 % IRON Normal SATURATION 39.3 Performed By: #### L500.4050, L503.6030, L503.6550, L506.0250 #### [facility] [address] [place], [address] FERRITIN Collected: 09/06/2017 Status: F Source: [place] 7:29 AM [facility] Order Comment: Is Patient Taking Vitamins or Folic Acid Supplements? N TYPE CODE TESTS RESULT OUT OF RANGE REFERENCE UNITS LAB L503.6550 8-252 ng/mL Normal FERRITIN 153 Performed By: #### L500.4050, L503.6030, L503.6550, L506.0250 #### [facility] [address] [place], [address] FOLATES, (FOLIC ACID) Collected: 09/06/2017 Status: F Source: [place] 7:29 AM [facility] Order Comment: Is Patient Taking Vitamins or Folic Acid Supplements? N TYPE CODE TESTS RESULT OUT OF RANGE REFERENCE UNITS LAB L506.0250 3.1-55.4 ng/mL Normal FOLATES 37.50 Performed By: #### L500.4050, L503.6030, L503.6550, L506.0250 #### [facility] [address] [place], [address] VITAMIN B12 Collected: 09/06/2017 Status: F Source: [place] 7:29 AM [facility] TYPE CODE TESTS RESULT OUT OF RANGE REFERENCE UNITS LAB L503.0105 211-911 pg/mL Normal Vitamin B12 705 Performed By: #### L503.0105, L506.1000 #### [facility] [address] [place], [address] VITAMIN D,25 HYDROXY Collected: 09/06/2017 Status: F Source: [place] 7:29 AM [facility] TYPE CODE TESTS RESULT OUT OF REFERENCE UNITS RANGE LAB L506.1000 29.95-100.01 ng/mL Low Vitamin D 29.7 25-OH Result Comment: Vitamin D 25(OH) Status Range Deficiency <20 ng/mL (50nmol/L) Insuffciency 20 - 30 ng/mL (50 - 75 nmol/L) Sufficiency 30 - 100 ng/mL (75 - 250 nmol/L) Toxicity >100 ng/mL (>250 nmol/L) Performed By: #### L503.0105, L506.1000 #### [facility] [address] [place], [address] PTHIN Collected: 09/06/2017 Status: F Source: [place] 7:29 AM [facility] TYPE CODE TESTS RESULT OUT OF RANGE REFERENCE UNITS LAB L509.1000 18.4-80.1 pg/mL Low PTHIN 13.7 Performed By: #### L509.1000 #### [facility] [address] [place], [address] COPPER, SERUM OR Collected: 09/06/2017 Status: F Source: [place] [facility] 7:29 AM [facility] Order Comment: Specimen Comment: A duplicate report has been generated due to demographic Specimen Comment: updates. TYPE CODE TESTS RESULT OUT OF RANGE REFERENCE UNITS LAB L3300.0100 72-166 ug/dL Normal COPPER 77 Result Comment: Detection Limit = 5 Performed at: [address] [id number] Relationship Executive: Deejay Marques MD, Phone: [phone] Performed By: #### L3300.0100, L3300.8000 #### [facility] (refer to report for specific site) refer to report for address and phone number VITAMIN B1, THIAMINE Collected: 09/06/2017 Status: F Source: [place] 7:29 AM [facility] Order Comment: Specimen Comment: A duplicate report has been generated due to demographic Specimen Comment: updates. TYPE CODE TESTS RESULT OUT OF RANGE REFERENCE UNITS LAB L3300.8000 66.5-200.0 nmol/L Normal VIT B1 130.8 Result Comment: This test was developed and its performance characteristics determined by [facility] It has not been cleared or approved by the Food and Drug Administration. Performed By: #### L3300.0100, L3300.8000 #### [facility] (refer to report for specific site) refer to report for address and phone number CBC W/DIFF, AUTOMATED Collected: 08/13/2017 Status: F Source: [place] 2:20 PM [facility] TYPE CODE TESTS RESULT OUT OF [...] Lymph 2.71 Performed By: #### L100.0100 #### [facility] [address] [place], [place], [address] COMPREHENSIVE METABOLIC Collected: 08/13/2017 Status: F Source: [facility] 2:20 PM [facility] TYPE CODE TESTS RESULT OUT OF [...] Performed By: #### L500.4050, L501.1400, L501.9520 #### [facility] [address] [facility] [place], [place], [address] URIC ACID Collected: 08/13/2017 Status: F Source: [place] 2:20 PM [facility] TYPE CODE TESTS RESULT OUT OF RANGE REFERENCE UNITS LAB L501.1400 2.6-6.0 mg/dL Normal URIC 5.4 Result Comment: The drugs N-Acetylcysteine and Metamizole may falsely depress this assay. Performed By: #### L500.4050, L501.1400, L501.9520 #### [facility] [address] [facility] [place], [place], [address] THYROID STIM HORMONE Collected: 08/13/2017 Status: F Source: [place] ([facility]SH) 2:20 PM [facility] TYPE CODE TESTS RESULT OUT OF RANGE REFERENCE UNITS LAB L501.9520 0.358-3.74 uIU/mL Normal TSH 1.25 Performed By: #### L500.4050, L501.1400, L501.9520 #### [facility] [address] [place], [place], [address] POCT GLUCOSE Collected: 06/13/2017 Status: F Source: [facility] 11:44 AM SYSTEM REPOSITORY TYPE CODE TESTS RESULT OUT OF REFERENCE UNITS RANGE LAB PCGL 65-99 MG/DL High POCT GLUCOSE 109 Performed By: #### PCGL #### [facility] [address] [place] [address] POCT GLUCOSE Collected: 06/13/2017 Status: F Source: [facility] 8:03 AM SYSTEM REPOSITORY TYPE CODE TESTS RESULT OUT OF REFERENCE UNITS RANGE LAB PCGL 65-99 MG/DL POCT GLUCOSE 98 Performed By: #### PCGL #### [facility] [address] [place] [address] POCT GLUCOSE Collected: 06/12/2017 Status: F Source: [facility] 10:19 PM SYSTEM REPOSITORY TYPE CODE TESTS RESULT OUT OF REFERENCE UNITS RANGE LAB PCGL 65-99 MG/DL POCT GLUCOSE 99 Performed By: #### PCGL #### [facility] [address] [place] [address] POCT GLUCOSE Collected: 06/12/2017 Status: F Source: [facility] 8:08 PM SYSTEM REPOSITORY TYPE CODE TESTS RESULT OUT OF REFERENCE UNITS RANGE LAB PCGL 65-99 MG/DL POCT GLUCOSE 95 Performed By: #### PCGL #### [facility] [address] [place] [address] POCT GLUCOSE Collected: 06/12/2017 Status: F Source: [facility] 2:33 PM SYSTEM REPOSITORY TYPE CODE TESTS RESULT OUT OF REFERENCE UNITS RANGE LAB PCGL 65-99 MG/DL POCT GLUCOSE 81 Performed By: #### PCGL #### [facility] [address] [place] [address] POCT GLUCOSE Collected: 06/12/2017 Status: F Source: [facility] 10:18 AM SYSTEM REPOSITORY TYPE CODE TESTS RESULT OUT OF REFERENCE UNITS RANGE LAB PCGL 65-99 MG/DL High POCT GLUCOSE 111 Performed By: #### PCGL #### [facility] [address] [place] [address] UGI W COOKIEB Observed: 06/12/2017 Status: F Source: [facility] 8:32 AM SYSTEM REPOSITORY *FINAL Date of Service: 06/12/2017 08:32 Adm #: [id number] Reading Dr:KITTY DEE Signoff Dr: KITTY DEE [...] POCT GLUCOSE Collected: 06/12/2017 Status: F Source: [facility] 6:36 AM SYSTEM REPOSITORY TYPE CODE TESTS RESULT OUT OF REFERENCE UNITS RANGE LAB PCGL 65-99 MG/DL POCT GLUCOSE 93 Performed By: #### PCGL #### [facility] [address] [place] [address] POCT GLUCOSE Collected: 06/12/2017 Status: F Source: [facility] 2:00 AM SYSTEM REPOSITORY TYPE CODE TESTS RESULT OUT OF REFERENCE UNITS RANGE LAB PCGL 65-99 MG/DL POCT GLUCOSE 81 Performed By: #### PCGL #### [facility] [address] [place] [address] POCT GLUCOSE Collected: 06/11/2017 Status: F Source: [facility] 11:43 AM SYSTEM REPOSITORY TYPE CODE TESTS RESULT OUT OF REFERENCE UNITS RANGE LAB PCGL 65-99 MG/DL High POCT GLUCOSE 144 Performed By: #### PCGL #### [facility] [address] [place] [address] POCT GLUCOSE Collected: 06/11/2017 Status: F Source: [facility] 9:46 AM SYSTEM REPOSITORY TYPE CODE TESTS RESULT OUT OF REFERENCE UNITS RANGE LAB PCGL 65-99 MG/DL High POCT GLUCOSE 145 Performed By: #### PCGL #### [facility] [address] [place] [address] POCT GLUCOSE Collected: 06/11/2017 Status: F Source: [facility] 7:15 AM SYSTEM REPOSITORY TYPE CODE TESTS RESULT OUT OF REFERENCE UNITS RANGE LAB PCGL 65-99 MG/DL High POCT GLUCOSE 112 Performed By: #### PCGL #### [address] [address] PLATELET Collected: 06/11/2017 Status: F Source: [facility] 7:08 AM SYSTEM REPOSITORY TYPE CODE TESTS RESULT OUT OF REFERENCE UNITS RANGE LAB PLT 150-450 PLATELET Result Comment: 280 Performed at [address] [address] Performed By: #### PLT #### Main Laboratory [address] [address] COMPREHENSIVE METABOLIC Collected: 05/22/2017 Status: F Source: KYLER ELLIS 4:17 PM [facility] [place] CODE TESTS RESULT OUT OF [...] GAP 12 Performed By: #### L500.4050 #### [facility] [address] [place], [address] CBC W/DIFF, AUTOMATED Collected: 05/22/2017 Status: F Source: [place] 4:17 PM [facility] [place] CODE TESTS RESULT OUT OF [...] Lymph 3.37 Performed By: #### L100.0100 #### [facility] Laboratory [address] [place], [address] ALLERGIES ALLERGIES DATE TYPE / CODE NAME / CODE REACTION SEVERITY SOURCE 03/19/2017 Drug No Known Unknown [facility] Allergy/416 Allergies/E38866 Hospital 114208(SNOM 0388(RXNORM) Repository ED CT) Drug NO KNOWN [facility] Class/40940 ALLERGIES [place] 1003(SNOMED Repository CT) ENCOUNTERS ENCOUNTERS ADMIT/DISCHARGE ACCOUNT NUMBER ADMITTING ENCOUNTER LOCATION SOURCE CLASS 04/23/2018 [id number] [facility] ding:PSN Repository 04/18/2018 [id number] [facility] ding:LAB Repository 03/21/2018/03/28/20 [id number] Ambulatory [address] [place] Repository 03/18/2018 [id number] [facility] ding:LAB.FUT Repository URE 02/12/2018 [id number] [facility] ding:LAB Repository 10/21/2017 [id number] [facility] ding:MTLAB Repository 09/06/2017 [id number] [facility] ding:MTLAB Repository 08/13/2017 [id number] [facility] ding:POLAB3 Repository 06/11/2017/06/14/19 [id number] [place]patient [place] [address] Encounter ing:W4N ANTIGO System DIV4 Repository NORTHRoom: N757Yxf: [id number] 05/22/2017 [id number] Ambulatory [place] [facility] ding:MTLAB Repository PAYERS PAYERS ENCOUNTER GUARANTOR PAYER SUBSCRIBER SOURCE 04/23/2018 OSVALDO Fournier Primary Insurance:[facility] [address] [facility] [id number] [place] [address]Hdy: Number: Repository [id number] (HP) Date:1482-98-06[address] [address]ZJYEPHPAF, [place] [address]RG: CHECK WEBSITE 04/23/2018 Secondary NOT GIVENUNK [place] Insurance:SELF PAY [facility] Number: Effective Repository Date:2018-04-23 04/18/2018 OSVALDO Fournier Primary Insurance:[facility] NOLAN [address] [facility] [id number] [place] [address]Cpa: Number: Repository [id number] (HP) Date:8782-06-87DW [address] [address]ROREE, [place] [address]EE: CHECK WEBSITE 04/18/2018 Secondary NOT GIVENUNK [place] Insurance:SELF PAY [facility] Number: Effective Repository Date:2018-04-18 03/18/2018 OSVALDO Fournier Primary Insurance:[facility] NOLAN [address] [facility]: [facility] [id number] [place] [address]Ate: Number: Repository [id number] (HP) Date:6516-33-04YB [address] [address]WWKQWBELC, [place] [address]QB: CHECK WEBSITE 03/18/2018 Secondary NOT GIVENUNK [place] Insurance:SELF PAY [facility] Number: Effective Repository Date:2018-02-19 02/12/2018 OSVALDO Fournier Primary Insurance:[facility] NOLAN [address] [facility]: [facility] [id number] [place] [address]Rqs: Number: Repository [id number] (HP) Date:1737-05-45DM [address] [address]TXTEUFWYE, [place] [address]CP: CHECK WEBSITE 02/12/2018 Secondary NOT GIVENUNK [place] Insurance:SELF PAY [facility] Number: Effective Repository Date:2018-02-12 10/21/2017 OSVALDO Fournier Primary Insurance:[facility] NOLAN [address] [facility]: [facility] [id number] [address]Nrw: Number: Repository [id number] (HP) Date:6442-59-82ZF [address] [address]TTKNZUUHY, [place] [address]AF: CHECK WEBSITE 10/21/2017 Secondary NOT GIVENUNK [place] Insurance:SELF PAY [facility] Number: Effective Repository Date:2017-10-21 09/06/2017 OSVALDO Fournier Primary Insurance:[facility] NOLAN Chávez [id number] [place], [place] [address]OB: [facility] [id number] [facility] [place] [address]Gqs: Number: Repository [id number] (HP) Date:2504-31-17GW [address] [address]JODBLSMFM, [place] [address]PO: CHECK WEBSITE 09/06/2017 Secondary NOT GIVENUNK [place] Insurance:SELF PAY [facility] Number: Effective Repository Date:2017-09-06 08/13/2017 OSVALDO Fournier Primary Insurance:[facility] Nolan [address] [facility] [id number] Hospital [facility] [place] [address]Crh: Number: Repository [id number] (HP) Date:8591-71-23TH [address] [address]AAHXKZBNO, [place] [address]LD: CHECK WEBSITE 08/13/2017 Secondary NOT GIVENUNK [place] Insurance:SELF PAY [facility] Number: Effective Repository Date:2017-08-13 06/11/2017 OSVALDO [facility] Insurance:[employer] MUSSELMANDOB: System [facility] [id number] Repository [facility], Number: [facility] [id number]: [id number] [place] Date:Plan [phone]: ([phone]) (HP) Name:[facility] [phone] () [address]ZAUFSSHFY, [place] [id number]: 05/22/2017 OSVALDO Fournier Primary Insurance:[facility] Nolan HUERTAMAN[address] [facility] [id number] Hospital of [facility] [place] [address]Xmn: Number: Repository [id number] () Date:8873-80-36WW [address] [address]RXHIMYJFL, [place] [address]KO: CHECK WEBSITE 05/22/2017 Secondary NOT GIVENANABELLE Chávez Insurance:SELF PAY [facility] Number: Effective Repository Date:2017-05-22
== END ==
PROVIDERS: Family Provider Family Medicine Geriatric Medicine; PCP Family Medicine Geriatric Medicine
DX: K90.9 Intestinal malabsorption, unspecified (principal); E53.8 Deficiency of other specified B group vitamins
CPT/HCPCS: 36415; 82607; 83970; 84425

== ENCOUNTER → 2018-04-23 12:24 | Outpatient (CLI) | payer OTHER, SELFPAY ==
--- OUTSIDE RECORDS SUMMARY | 2018-06-25 10:34 | XMS RPT_ITS ---
:1975 Author Organization OHIP Support Name Relationship Address Phone [employer] Unavailable [address] + [place] [address] NOLAN CASTILLO Unavailable [address] + [place] [address] [employer] Unavailable [address] + [place] [address] NOLAN CASTILLO Unavailable [address] + [place] [address] [employer] Unavailable [address] + [place] [address] NOLAN CASTILLO Unavailable [address] + [place] [address] [employer] Unavailable [address] + [place] [address] NOLAN CASTILLO Unavailable [address] + [place] [address] [employer] Unavailable [address] + [place] [address] KAMI NOLAN Unavailable [address] + [place] [address] [employer] Unavailable [address] + [place] [address] TALIA CASTILLOIAN Unavailable [address] + [place] [address] [employer] Unavailable [address] + [place] [address] NOLAN CASTILLO Unavailable [address] + [place] [address] NOLAN CASTILLO Unavailable Unavailable + NOT GIVEN Unavailable Un[place] [address] [employer] Unavailable [address] + [place] [address] KAMI, NOLAN Unavailable [address] + [place] [address] Care Team Providers Name Role Phone JON [...] - Fever, John, Luis E Chi Active [place] unspecified / Community R50.9(ICD-10) Hospital Repository 04/18/2018 Unknown 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, Community unspecified / Hospital K90.9(ICD-10) Repository 04/18/2018 Unknown E53.8 - Deficiency KAVON ABEBE Active [place] of other specified B Community group vitamins / Hospital E53.8(ICD-10) Repository 02/12/2018 Unknown E55.9 - Vitamin D John, Luis E Chi Active [place] deficiency, Community unspecified / Hospital E55.9(ICD-10) Repository 02/12/2018 Unknown E11.9 - Type 2 John, Luis E Chi Active [place] diabetes mellitus Community without Hospital complications / Repository E11.9(ICD-10) 02/12/2018 Unknown M54.9 - Dorsalgia, John, Luis E Chi Active [place] unspecified / Community M54.9(ICD-10) Hospital Repository 02/12/2018 Unknown M17.9 - John, Luis E Chi Active [place] Osteoarthritis of Community knee, unspecified / Hospital M17.9(ICD-10) Repository 02/12/2018 Unknown M54.5 - Low back John, Luis E Chi Active [place] pain / M54.5(ICD-10) Community Hospital Repository 02/12/2018 Unknown M25.569 - Pain in John, Luis E Chi Active [place] unspecified knee / Community M25.569(ICD-10) Hospital Repository 11/22/2017 Unknown R74.0 - Nonspecific KAVON ABEBE elevation of levels [facility] Hospital lactic acid Repository dehydrogenase [LDH] / R74.0(ICD-10) 11/28/2017 Unknown Z09 - Encounter for KAVON ABEBE follow-up Community examination after Hospital completed treatment Repository for conditions other than malignant neoplasm / Z09(ICD-10) 06/11/2017 Admitting Morbid (severe) NETTIE-KHOI, [employer] [facility] Diagnosis obesity due to [facility] excess calories / Repository E66.01(ICD-10) 06/11/2017 Final Diagnosis Morbid (severe) [facility] ([facility] obesity due to [facility] excess calories / Repository E66.01(ICD-10) 06/11/2017 Final Diagnosis Type 2 diabetes NETTIE-KHOI, [employer] (Discharge) mellitus with [facility] unspecified Repository complications / E11.8(ICD-10) 06/11/2017 Final Diagnosis Obstructive sleep NETTIE-KHOI, [employer] (Discharge) apnea (adult) MD System (pediatric) / Repository G47.33(ICD-10) 06/11/2017 Final Diagnosis Hypothyroidism, NETTIE-KHOI, SUNDAR [employer] (Discharge) unspecified / MD System E03.9(ICD-10) Repository 06/11/2017 Final Diagnosis Essential (primary) NETTIE-KHOI, SUNDAR [employer] (Discharge) hypertension / [facility] System I10(ICD-10) Repository 06/11/2017 Final Diagnosis Gastro-esophageal NETTIE-KHOI, [employer] (Discharge) reflux disease MD System without esophagitis Repository / K21.9(ICD-10) 06/11/2017 Final Diagnosis Hyperlipidemia, NETTIE-KHOI, SUNDAR [facility] (Discharge) unspecified / MD System E78.5(ICD-10) Repository 06/11/2017 Final Diagnosis Primary generalized NETTIE-KHOI, SUNDAR Active [facility] (Discharge) (osteo)arthritis / MD System M15.0(ICD-10) Repository 06/11/2017 Final Diagnosis Stress incontinence SUNDAR GUARDADO [facility] [employer] (Discharge) (female) (male) / MD System N39.3(ICD-10) Repository 06/11/2017 Final Diagnosis Family hx of ischem [facility] (Discharge) heart dis and oth MD System dis of the circ sys Repository / Z82.49(ICD-10) 06/11/2017 Final Diagnosis Body mass index SUNDAR GUARDADO [facility] [employer] (Discharge) (BMI) 40.0-44.9, MD System adult / Repository Z68.41(ICD-10) 05/22/2017 Unknown G47.33 - Obstructive KAVON ABEBE [facility] sleep apnea (adult) [facility] (pediatric) / Hospital G47.33(ICD-10) Repository PROCEDURES PROCEDURES No Procedure Records FoundRESULTS RESULTS Observed: 04/23/2018 Status: F Source: [place] RESPIRATORY PANEL 12:31 PM [facility] MOLECULAR REPOSITORY RP PANEL [facility] 04/23[facility]18 1512 Anette Martins. Copy of report sent to Infection Control Printer MS#[id number] 04/23/18 7875 DAVID. Normal Reference Range = Not Detected [...] (SUBTYPE H1) Performed By: #### M100.638 #### [facility] [address] [place], [place], [address] PTHIN Collected: 04/18/2018 Status: F Source: [place] 12:09 PM [facility] REPOSITORY TYPE CODE TESTS RESULT OUT OF RANGE REFERENCE UNITS LAB L509.1000 18.4-80.1 pg/mL Low PTHIN 17.6 Performed By: #### L509.1000 #### [facility] [address] [place], [address] VITAMIN B12 Collected: 04/18/2018 Status: F Source: [place] 12:09 PM [facility] REPOSITORY TYPE CODE TESTS RESULT OUT OF RANGE REFERENCE UNITS LAB L503.0105 211-911 pg/mL Normal Vitamin B12 551 Performed By: #### L503.0105 #### [facility] [address] [place], [address] VITAMIN B1, THIAMINE Collected: 04/18/2018 Status: F Source: [place] 12:09 PM [facility] REPOSITORY TYPE CODE TESTS RESULT OUT OF RANGE REFERENCE UNITS LAB L3300.8000 66.5-200.0 nmol/L Normal VIT B1 198.9 Result Comment: This test was developed and its performance characteristics determined by [facility]. It has not been cleared or approved by the Food and Drug Administration. Performed at: [address] [id number] Research Hydraulic Engineer: Patricia Washington MD, Phone: [phone] Performed By: #### L3300.8000 #### [facility] (refer to report for specific site) refer to report for address and phone number PROGRESS Observed: 03/21/2018 Status: COMPLETED Source: [place] 3:01 PM [facility] REPOSITORY HNO ID: [id number] Author: Hamilton Jackson Service: (none) Author Type: [...] IUD source: office provided IUD lot #: [id number] Exp date: 07/2020 UNIVERSAL PROTOCOL / SAFETY [...] MD CNOV Observed: 03/21/2018 Status: COMPLETED Source: [place] 3:00 PM [facility] REPOSITORY Office Visit (WOOB) OSVALDO CASTILLO ([id number]) 1975 F Date Time Provider Department 03/21/18 [...] IUD source: office provided IUD lot #: [id number] Exp date: 07/2020 UNIVERSAL PROTOCOL / SAFETY [...] for IUD removal [Z30.432] Order(s):INSERT INTRAUTERINE DEVICE [6531317] Order #: [id number] REMOVE INTRAUTERINE DEVICE [[id number]] Order #: [id number] [] levonorgestrel 20 mcg/24 hr (5 years) [...] Status: F Source: [place]DA 1:14 PM [facility] REPOSITORY TYPE CODE TESTS RESULT OUT OF [...] GAP 8 Performed By: #### L500.4050 #### [facility] [address] [place], [address] KNEE 4 OR MORE Observed: 02/12/2018 Status: F Source: [facility] 9:06 AM [facility] REPOSITORY [facility] Imaging Services [address] [place] [address] Knee 4 or More Views MR#: [id number] Acct: [id number] Name: OSVALDO CASTILLO Rep #: [id number] : 1975 F 42 From: Laurence Goodman MD PCP: John LOVE,Luis E Topete Status: REG CLI Study: Knee 4 or More Views Date of Exam: 02/12/18 Exam# [id number] Ordering Dr: Luis E Lopez MD STUDY: [...] support , CC: Luis E Lopez MD Mailmaster: Signed KNEE 4 OR MORE Observed: 02/12/2018 Status: F Source: [place] VIEWS 9:06 AM [facility] REPOSITORY [facility] Imaging Services [address] [place] [address] Knee 4 or More Views MR#: [id number] Acct: [id number] Name: OSVALDO CASTILLO Rep #: [id number] : 1975 F 42 From: Laurence Goodman MD PCP: Luis E Lopez MD, Chi Status: REG CLI Study: Knee 4 or More Views Date of Exam: 02/12/18 Exam# [id number] Ordering Dr: Luis E Lopez MD STUDY: [...] support , CC: Luis E Lopez MD Mailmaster: Signed HIPS B/L MIN 2 Observed: 02/12/2018 Status: F Source: [place] VIEWS W/ PELVIS 9:06 AM [facility] REPOSITORY [facility] Imaging Services [facility] [place] [address] [place] [address] Hips B/L min 2 views w/ Pelvis MR#: [id number] Acct: [id number] Name: OSVALDO CASTILLO Rep #: [id number] : 1975 F 42 From: Laurence Goodman MD PCP: Luis E Lopez MD, Chi Status: REG CLI Study: Hips B/L min 2 views w/ Pelvis Date of Exam: 02/12/18 Exam# [id number] Ordering Dr: Luis E Lopez MD STUDY: [...] support , CC: Luis E Lopez MD Mailmaster: Signed SACRUM-COCCYX MIN 2 VIEWS Observed: 02/12/2018 Status: F Source: [place] 9:06 AM [facility] REPOSITORY [facility] Imaging Services [address] [place] [address] Sacrum-Coccyx min 2 Views MR#: [id number] Acct: [id number] Name: OSVALDO CASTILLO Rep #: [id number] : 1975 F 42 From: Laurence Goodman MD PCP: John LOVE,Luis E Topete Status: REG CLI Study: Sacrum-Coccyx min 2 Views Date of Exam: 02/12/18 Exam# [id number] Ordering Dr: Luis E Lopez MD STUDY: [...] support , CC: Luis E Lopez MD Mailmaster: Signed LUMBAR SPINE 2 OR 3 Observed: 02/12/2018 Status: F Source: [place] VIEWS 9:06 AM [facility] REPOSITORY [facility] Imaging Services [address] [place] [address] Lumbar Spine 2 or 3 Views MR#: [id number] Acct: [id number] Name: OSVALDO CASTILLO Rep #: [id number] : 1975 F 42 From: Nino Toro PCP: John LOVE,Luis E Topete Status: REG CLI Study: Lumbar Spine 2 or 3 Views Date of Exam: 02/12/18 Exam# [id number] Ordering Dr: Luis E Lopez MD STUDY: [...] support , CC: Luis E Lopez MD Mailmaster: Signed CBC W/DIFF, AUTOMATED Collected: 02/12/2018 Status: F Source: [place] 8:54 AM [facility] REPOSITORY TYPE CODE TESTS RESULT OUT OF [...] Lymph 1.76 Performed By: #### L100.0100 #### [facility] [place], [address] VITAMIN D,25 HYDROXY Collected: 02/12/2018 Status: F Source: [place] 8:54 AM [facility] REPOSITORY TYPE CODE TESTS RESULT OUT OF RANGE REFERENCE UNITS LAB L506.1000 29.95-100.01 ng/mL Normal Vitamin D 33.0 25-OH Result Comment: Vitamin D 25(OH) Status Range Deficiency <20 ng/mL (50nmol/L) Insuffciency 20 - 30 ng/mL (50 - 75 nmol/L) Sufficiency 30 - 100 ng/mL (75 - 250 nmol/L) Toxicity >100 ng/mL (>250 nmol/L) Performed By: #### L506.1000 #### [facility] [place], [address] COMPREHENSIVE METABOLIC Collected: 02/12/2018 Status: F Source: [place] [facility] 8:54 AM [facility] REPOSITORY TYPE CODE TESTS RESULT OUT OF [...] Performed By: #### L500.4050, L501.1400, L501.9520 #### [facility] [address] [place], [place], [address] URIC ACID Collected: 02/12/2018 Status: F Source: [place] 8:54 AM [facility] REPOSITORY TYPE CODE TESTS RESULT OUT OF RANGE REFERENCE UNITS LAB L501.1400 2.6-6.0 mg/dL Normal URIC 3.4 Result Comment: The drugs N-Acetylcysteine and Metamizole may falsely depress this assay. Performed By: #### L500.4050, L501.1400, L501.9520 #### [facility] [place], [place], [address] THYROID STIM HORMONE Collected: 02/12/2018 Status: F Source: [place] (TSH) 8:54 AM [facility] REPOSITORY TYPE CODE TESTS RESULT OUT OF RANGE REFERENCE UNITS LAB L501.9520 0.358-3.74 uIU/mL Normal TSH 0.60 Performed By: #### L500.4050, L501.1400, L501.9520 #### [facility] [place], [place], [address] LIVER PROFILE Collected: 10/21/2017 Status: F Source: [place] 7:36 AM [facility] REPOSITORY TYPE CODE TESTS RESULT OUT OF [...] BILI 0.13 Performed By: #### L500.3400 #### [facility] [address] [place], [address] DOWNTIME REPORT Observed: 09/19/2017 Status: F Source: [place] 1:23 PM [facility] REPOSITORY [facility] Medical Records Department [address] [place] [address] Downtime Report MR#: [id number] Acct: [id number] Name: OSVALDO CASTILLO Rep #: [id number] : 1975 42 From: Morris Alexander PCP: John LOVE,[employer] Status: REG CLI This patient was seen during an EMR downtime September 02, 2017 - September 09, 2017. This patient may have a combination of paper and electronic documentation or all paper documentation. All documentation is viewable within the e-chart portion of [employer] for each patient visit. CBC W/DIFF, AUTOMATED Collected: 09/06/2017 Status: F Source: [place] 7:29 AM [facility] REPOSITORY TYPE CODE TESTS RESULT OUT OF [...] Lymph 1.91 Performed By: #### L100.0100 #### [facility] [address] [place], [address] COMPREHENSIVE METABOLIC Collected: 09/06/2017 Status: F Source: [facility] 7:29 AM [facility] REPOSITORY Order Comment: Is Patient Taking Vitamins [...] By: #### L500.4050, L503.6030, L503.6550, L506.0250 #### [facility] [address] [place], [address] IRON+IRON BINDING Collected: 09/06/2017 Status: F Source: [facility] 7:29 AM [facility] REPOSITORY Order Comment: Is Patient Taking Vitamins or Folic Acid Supplements? N TYPE CODE TESTS RESULT OUT OF RANGE REFERENCE UNITS LAB L503.6075 250-450 ug/dL TIBC Normal 285 LAB L503.6150 50-170 ug/dL IRON Normal 112 LAB L503.6250 15.0-55.0 % IRON Normal SATURATION 39.3 Performed By: #### L500.4050, L503.6030, L503.6550, L506.0250 #### [facility] [address] [place], [address] FERRITIN Collected: 09/06/2017 Status: F Source: [place] 7:29 AM [facility] REPOSITORY Order Comment: Is Patient Taking Vitamins or Folic Acid Supplements? N TYPE CODE TESTS RESULT OUT OF RANGE REFERENCE UNITS LAB L503.6550 8-252 ng/mL Normal FERRITIN 153 Performed By: #### L500.4050, L503.6030, L503.6550, L506.0250 #### [facility] [address] [place], [address] FOLATES, (FOLIC ACID) Collected: 09/06/2017 Status: F Source: [place] 7:29 AM [facility] REPOSITORY Order Comment: Is Patient Taking Vitamins or Folic Acid Supplements? N TYPE CODE TESTS RESULT OUT OF RANGE REFERENCE UNITS LAB L506.0250 3.1-55.4 ng/mL Normal FOLATES 37.50 Performed By: #### L500.4050, L503.6030, L503.6550, L506.0250 #### [facility] [address] [place], [address] VITAMIN B12 Collected: 09/06/2017 Status: F Source: [place] 7:29 AM [facility] REPOSITORY TYPE CODE TESTS RESULT OUT OF RANGE REFERENCE UNITS LAB L503.0105 211-911 pg/mL Normal Vitamin B12 705 Performed By: #### L503.0105, L506.1000 #### [facility] [address] [place], [address] VITAMIN D,25 HYDROXY Collected: 09/06/2017 Status: F Source: [place] 7:29 AM [facility] REPOSITORY TYPE CODE TESTS RESULT OUT OF REFERENCE UNITS RANGE LAB L506.1000 29.95-100.01 ng/mL Low Vitamin D 29.7 25-OH Result Comment: Vitamin D 25(OH) Status Range Deficiency <20 ng/mL (50nmol/L) Insuffciency 20 - 30 ng/mL (50 - 75 nmol/L) Sufficiency 30 - 100 ng/mL (75 - 250 nmol/L) Toxicity >100 ng/mL (>250 nmol/L) Performed By: #### L503.0105, L506.1000 #### [facility] [address] [place], [address] PTHIN Collected: 09/06/2017 Status: F Source: [place] 7:29 AM [facility] REPOSITORY TYPE CODE TESTS RESULT OUT OF RANGE REFERENCE UNITS LAB L509.1000 18.4-80.1 pg/mL Low PTHIN 13.7 Performed By: #### L509.1000 #### [facility] [address] [place], [address] COPPER, SERUM OR Collected: 09/06/2017 Status: F Source: [place] [facility] 7:29 AM [facility] REPOSITORY Order Comment: Specimen Comment: A duplicate report has been generated due to demographic Specimen Comment: updates. TYPE CODE TESTS RESULT OUT OF RANGE REFERENCE UNITS LAB L3300.0100 72-166 ug/dL Normal COPPER 77 Result Comment: Detection Limit = 5 Performed at: [address] [id number] Research Hydraulic Engineer: Deejay Marques MD, Phone: [phone] Performed By: #### L3300.0100, L3300.8000 #### [facility] (refer to report for specific site) refer to report for address and phone number VITAMIN B1, THIAMINE Collected: 09/06/2017 Status: F Source: [place] 7:29 AM [facility] REPOSITORY Order Comment: Specimen Comment: A duplicate report has been generated due to demographic Specimen Comment: updates. TYPE CODE TESTS RESULT OUT OF RANGE REFERENCE UNITS LAB L3300.8000 66.5-200.0 nmol/L Normal VIT B1 130.8 Result Comment: This test was developed and its performance characteristics determined by [facility]. It has not been cleared or approved by the Food and Drug Administration. Performed By: #### L3300.0100, L3300.8000 #### [facility] (refer to report for specific site) refer to report for address and phone number CBC W/DIFF, AUTOMATED Collected: 08/13/2017 Status: F Source: [place] 2:20 PM [facility] REPOSITORY TYPE CODE TESTS RESULT OUT OF [...] Lymph 2.71 Performed By: #### L100.0100 #### [facility] [address] [place], [place], [address] COMPREHENSIVE METABOLIC Collected: 08/13/2017 Status: F Source: [facility] 2:20 PM [facility] REPOSITORY TYPE CODE TESTS RESULT OUT OF [...] Performed By: #### L500.4050, L501.1400, L501.9520 #### [facility] [address] [place], [place], [address] URIC ACID Collected: 08/13/2017 Status: F Source: [place] 2:20 PM [facility] REPOSITORY TYPE CODE TESTS RESULT OUT OF RANGE REFERENCE UNITS LAB L501.1400 2.6-6.0 mg/dL Normal URIC 5.4 Result Comment: The drugs N-Acetylcysteine and Metamizole may falsely depress this assay. Performed By: #### L500.4050, L501.1400, L501.9520 #### [facility] [address] [place], [place], [address] THYROID STIM HORMONE Collected: 08/13/2017 Status: F Source: [place] ([facility]) 2:20 PM [facility] REPOSITORY TYPE CODE TESTS RESULT OUT OF RANGE REFERENCE UNITS LAB L501.9520 0.358-3.74 uIU/mL Normal TSH 1.25 Performed By: #### L500.4050, L501.1400, L501.9520 #### [facility] [address] [place], [place], [address] POCT GLUCOSE Collected: 06/13/2017 Status: F Source: [facility] 11:44 AM SYSTEM REPOSITORY TYPE CODE TESTS RESULT OUT OF REFERENCE UNITS RANGE LAB PCGL 65-99 MG/DL High POCT GLUCOSE 109 Performed By: #### PCGL #### [facility] [address] [place] [address] POCT GLUCOSE Collected: 06/13/2017 Status: F Source: [facility] 8:03 AM SYSTEM REPOSITORY TYPE CODE TESTS RESULT OUT OF REFERENCE UNITS RANGE LAB PCGL 65-99 MG/DL POCT GLUCOSE 98 Performed By: #### PCGL #### [facility] [address] [place] [address] POCT GLUCOSE Collected: 06/12/2017 Status: F Source: [facility] 10:19 PM SYSTEM REPOSITORY TYPE CODE TESTS RESULT OUT OF REFERENCE UNITS RANGE LAB PCGL 65-99 MG/DL POCT GLUCOSE 99 Performed By: #### PCGL #### [facility] [address] [place] [address] POCT GLUCOSE Collected: 06/12/2017 Status: F Source: [facility] 8:08 PM SYSTEM REPOSITORY TYPE CODE TESTS RESULT OUT OF REFERENCE UNITS RANGE LAB PCGL 65-99 MG/DL POCT GLUCOSE 95 Performed By: #### PCGL #### [facility] [address] [place] [address] POCT GLUCOSE Collected: 06/12/2017 Status: F Source: [facility] 2:33 PM SYSTEM REPOSITORY TYPE CODE TESTS RESULT OUT OF REFERENCE UNITS RANGE LAB PCGL 65-99 MG/DL POCT GLUCOSE 81 Performed By: #### PCGL #### [facility] [address] [place] [address] POCT GLUCOSE Collected: 06/12/2017 Status: F Source: [facility] 10:18 AM SYSTEM REPOSITORY TYPE CODE TESTS RESULT OUT OF REFERENCE UNITS RANGE LAB PCGL 65-99 MG/DL High POCT GLUCOSE 111 Performed By: #### PCGL #### [facility] [address] [place] [address] UGI W COOKIEB Observed: 06/12/2017 Status: F Source: [facility] 8:32 AM SYSTEM REPOSITORY *FINAL Date of Service: 06/12/2017 08:32 Adm #: [id number] Reading Dr:KITTY DEE Signoff Dr: KITTY DEE [...] Collected: 06/12/2017 Status: F Source: [facility] 6:36 AM SYSTEM REPOSITORY TYPE CODE TESTS RESULT OUT OF REFERENCE UNITS RANGE LAB PCGL 65-99 MG/DL POCT GLUCOSE 93 Performed By: #### PCGL #### [facility] [address] [place] [address] POCT GLUCOSE Collected: 06/12/2017 Status: F Source: [facility] 2:00 AM SYSTEM REPOSITORY TYPE CODE TESTS RESULT OUT OF REFERENCE UNITS RANGE LAB PCGL 65-99 MG/DL POCT GLUCOSE 81 Performed By: #### PCGL #### [facility] [address] [place] [address] POCT GLUCOSE Collected: 06/11/2017 Status: F Source: [facility] 11:43 AM SYSTEM REPOSITORY TYPE CODE TESTS RESULT OUT OF REFERENCE UNITS RANGE LAB PCGL 65-99 MG/DL High POCT GLUCOSE 144 Performed By: #### PCGL #### [facility] [address] [place] [address] POCT GLUCOSE Collected: 06/11/2017 Status: F Source: [facility] 9:46 AM SYSTEM REPOSITORY TYPE CODE TESTS RESULT OUT OF REFERENCE UNITS RANGE LAB PCGL 65-99 MG/DL High POCT GLUCOSE 145 Performed By: #### PCGL #### [facility] [address] [place] [address] POCT GLUCOSE Collected: 06/11/2017 Status: F Source: [facility] 7:15 AM SYSTEM REPOSITORY TYPE CODE TESTS RESULT OUT OF REFERENCE UNITS RANGE LAB PCGL 65-99 MG/DL High POCT GLUCOSE 112 Performed By: #### PCGL #### [address] [address] PLATELET Collected: 06/11/2017 Status: F Source: [facility] 7:08 AM SYSTEM REPOSITORY TYPE CODE TESTS RESULT OUT OF REFERENCE UNITS RANGE LAB PLT 150-450 PLATELET Result Comment: 280 Performed at [address] [address] Performed By: #### PLT #### Main Laboratory [address] [address] COMPREHENSIVE METABOLIC Collected: 05/22/2017 Status: F Source: [place] 4:17 PM [facility] REPOSITORY TYPE CODE TESTS RESULT OUT OF [...] GAP 12 Performed By: #### L500.4050 #### [facility] [address] [place], [address] CBC W/DIFF, AUTOMATED Collected: 05/22/2017 Status: F Source: [place] 4:17 PM [facility] REPOSITORY TYPE CODE TESTS RESULT OUT OF [...] Lymph 3.37 Performed By: #### L100.0100 #### [facility] [address] [place], [address] ALLERGIES ALLERGIES DATE TYPE / CODE NAME / CODE REACTION SEVERITY SOURCE 03/19/2017 Drug No Known Unknown [facility] Allergy/416 Allergies/G09505 Hospital 628086(SNOM 0388(RXNORM) Repository ED CT) Drug NO KNOWN [facility] Class/18554 ALLERGIES [place] 1003(SNOMED Repository CT) ENCOUNTERS ENCOUNTERS ADMIT/DISCHARGE ACCOUNT NUMBER ADMITTING ENCOUNTER LOCATION SOURCE CLASS 04/23/2018 [id number] [facility] ding:PSN Repository 04/18/2018 [id number] [facility] ding:LAB Repository 03/21/2018/03/28/20 [id number] Ambulatory [address] [place] Repository 03/18/2018 [id number] [facility] ding:LAB.FUT Repository URE 02/12/2018 [id number] [facility] ding:LAB Repository 10/21/2017 [id number] [facility] ding:MTLAB Repository 09/06/2017 [id number] [facility] ding:MTLAB Repository 08/13/2017 [id number] [facility] ding:POLAB3 Repository 06/11/2017/06/14/19 [id number] Inpatient [place] [address] Encounter ing:W4N SULLIGENT System DIV4 Repository NORTHRoom: A014Bce: [id number] 05/22/2017 [id number] Ambulatory [place] [facility] ding:MTLAB Repository PAYERS PAYERS ENCOUNTER GUARANTOR PAYER SUBSCRIBER SOURCE 04/23/2018 OSVALDO Fournier Primary Insurance:[facility] NOLAN [address] [facility] [id number] [place] [address]Aic: Number: Repository [id number] (HP) Date:9776-08-05[address] [address]FCF[place], [place] [address]DW: CHECK WEBSITE 04/23/2018 Secondary NOT GIVENUNK Kyler Insurance:SELF PAY [facility] Number: Effective Repository Date:2018-04-23 04/18/2018 OSVALDO Fournier Primary Insurance:[facility] NOLAN [address] [facility] [id number] [place] [address]Zqs: Number: Repository [id number] (HP) Date:8407-52-01TZ [address] [address], [place] [address]CH: CHECK WEBSITE 04/18/2018 Secondary NOT GIVENUNK Kyler Insurance:SELF PAY [facility] Number: Effective Repository Date:2018-04-18 03/18/2018 OSVALDO Fournier Primary Insurance:[facility] NOLAN [address] [facility] [id number] Hospital [place] [address]Hcd: Number: Repository [id number] (HP) Date:7599-11-48QI [address] [address], [place] [address]AV: CHECK WEBSITE 03/18/2018 Secondary NOT GIVENUNK Parshall Insurance:SELF PAY [facility] Number: Effective Repository Date:2018-02-19 02/12/2018 OSVALDO Fournier Primary Insurance:[facility] NOLAN [address] [facility] [id number] [place] [address]Gxt: Number: Repository [id number] (HP) Date:1724-62-24SH [address] [address]V, [place] [address]BX: CHECK WEBSITE 02/12/2018 Secondary NOT GIVENUNK Kyler Insurance:SELF PAY [facility] Number: Effective Repository Date:2018-02-12 10/21/2017 OSVALDO Fournier Primary Insurance:[facility] NOLAN [address] [facility] [id number] [address]Uze: Number: Repository [id number] (HP) Date:3148-80-20FQ [address] [address]JFWPFBVYW, [place] [address]HL: CHECK WEBSITE 10/21/2017 Secondary NOT GIVENUNK Parshall Insurance:SELF PAY [facility] Number: Effective Repository Date:2017-10-21 09/06/2017 OSVADLO Fournier Primary Insurance:[facility] NOLAN Chávez [id number] [place], [place] [address]OB: [facility] [id number] [address]Bwt: Number: Repository [id number] (HP) Date:3866-68-94LF [address] [address], [place] [address]MJ: CHECK WEBSITE 09/06/2017 Secondary NOT GIVENUNK Parshall Insurance:SELF PAY [facility] Number: Effective Repository Date:2017-09-06 08/13/2017 OSVALDO Fournier Primary Insurance:[facility] Nolan [address] [facility] [id number] Health Clinic [address]Uoj: Number: Repository [id number] (HP) Date:5983-62-71UL [address] [address], [place] [address]EV: CHECK WEBSITE 08/13/2017 Secondary NOT GIVENUNK Kyler Insurance:SELF PAY [facility] Number: Effective Repository Date:2017-08-13 06/11/2017 [facility]:[employer] MUSSELMANDOB: [facility] [id number] Repository [facility], Number: [address] [facility] [address]Qkm: [id number] [place], [place] Date:Plan [id number]: (782) (HP) Name:[facility] [phone] () [address], [place] [id number]: 05/22/2017 OSVALDO Fournier Primary Insurance:[facility] Nolan HUERTAMAN[address] [facility] [id number] [address]Rfk: Number: Repository [id number] () Date:5261-15-34VJ [address] [address], [place] [address]SG: CHECK WEBSITE 05/22/2017 Secondary NOT GIVENANABELLE Chávez Insurance:SELF PAY [facility] Number: Effective Repository Date:2017-05-22
== END ==
PROVIDERS: Family Provider Family Medicine Geriatric Medicine; PCP Family Medicine Geriatric Medicine; Referring Provider Family Medicine Geriatric Medicine; Visit Provider Family Medicine Geriatric Medicine
DX: R50.9 Fever, unspecified (principal)
CPT/HCPCS: 87633

== ENCOUNTER → 2018-08-12 14:34 | Outpatient (CLI) | payer OTHER, SELFPAY ==
[2018-08-12 16:54] LABS: Absolute Lymphocyte Count 2.04 X10^3/ul (0.83-4.51); Absolute Neutrophil Count 2.9 X10^3/uL (2.0-7.7); Basophil# 0.04 X10^3/uL; Basophil% 0.7 % (0-1); Eosinophil# 0.06 X10^3/uL; Eosinophils% 1.1 % (0-5); Hematocrit 37.5 % (37-47); Hemoglobin 12.4 g/dl (12.0-15.0); Lymphocyte # 2.04 X10^3/ul (4.0); Lymphocyte % 37.4 % (19-41); Mean Corp Hgb Conc 33.1 g/gl (32-36); Mean Corpuscular Hgb 31.6 pg (27.0-32.0); Mean Corpuscular Volume 95.7 fL (81-99); Mean Platelet Vol. 11.3 fl (6.2-12.0); Monocyte# 0.44 X10^3/uL; Monocyte% 8.1 % (0-10); Neutrophil # 2.86 X10^3/uL (2.7-7.7); Neutrophil % 52.5 % (47-70); Platelet Count 237 K/mm3 (150-450); RBC Distribution Width CV 12.7 % (11.6-14.6); RBC Distribution Width SD 43.3 fl (35.1-43.9); Red Blood Count 3.92 M/mm3 (4.2-5.4); White Blood Count 5.5 K/mm3 (4.4-11.0)
[2018-08-12 17:01] LABS: Vitamin D,25 Hydroxy 37.3 ng/mL (29.95-100.01)
[2018-08-12 17:02] LABS: ALB/GLOB Ratio 1.2 RATIO (0.9-2.4); AST(SGOT) 43 U/L (15-37); Alanine Aminotransfer ALT/SGPT 128 U/L (13-56); Albumin, Serum 3.5 g/dL (3.2-5.0); Alkaline Phosphatase 54 U/L (45-117); Anion Gap 6 (5-15); BUN 15 mg/dL (7-18); BUN/Creat Ratio 25.6 RATIO (10-20); Calcium,Total 8.3 mg/dL (8.5-10.1); Chloride 106 mmol/L (98-107); Creatinine, Serum 0.59 mg/dL (0.55-1.02); EST Glomerular Filtration Rate 120 mL/min (>60); Est Glom Filt Rate - Afr Amer 145 mL/min (>60); Glucose 137 mg/dL (74-106); Potassium 3.5 mmol/L (3.5-5.1); Protein, Total 6.5 g/dL (6.4-8.2); Sodium Level 139 mmol/L (136-145); Thyroid Stim Hormone (TSH) 0.74 uIU/mL (0.358-3.74); Uric Acid 3.5 mg/dL (2.6-6.0)
[2018-08-12 17:12] LABS: POSITIVE COUNT NO; POSITIVE DIFFERENTIAL NO; POSITIVE MORPHOLOGY NO
== END ==
PROVIDERS: Family Provider Family Medicine Geriatric Medicine; PCP Family Medicine Geriatric Medicine; Visit Provider Family Medicine Geriatric Medicine
DX: E11.9 Type 2 diabetes mellitus without complications (principal); E55.9 Vitamin D deficiency, unspecified; I10 Essential (primary) hypertension; M10.9 Gout, unspecified
CPT/HCPCS: 36415; 80053; 82306; 84443; 84550; 85025

== ENCOUNTER → 2018-08-29 20:00 | Outpatient (CLI) | payer OTHER, SELFPAY | PROVIDERS: Family Provider Family Medicine Geriatric Medicine; PCP Family Medicine Geriatric Medicine; Referring Provider Internal Medicine Pulmonary Disease; Visit Provider Internal Medicine Pulmonary Disease | DX: G47.33 Obstructive sleep apnea (adult) (pediatric) (principal) | CPT/HCPCS: 95811 ==

== ENCOUNTER → 2018-09-11 14:04 | Outpatient (CLI) | payer OTHER, SELFPAY ==
[2018-09-11 16:08] LABS: ALB/GLOB Ratio 1.1 RATIO (0.9-2.4); AST(SGOT) 60 U/L (15-37); Alanine Aminotransfer ALT/SGPT 120 U/L (13-56); Albumin, Serum 3.7 g/dL (3.2-5.0); Alkaline Phosphatase 52 U/L (45-117); Anion Gap 5 (5-15); BUN 14 mg/dL (7-18); BUN/Creat Ratio 23.9 RATIO (10-20); Calcium,Total 8.9 mg/dL (8.5-10.1); Chloride 105 mmol/L (98-107); Creatinine, Serum 0.58 mg/dL (0.55-1.02); EST Glomerular Filtration Rate 120 mL/min (>60); Est Glom Filt Rate - Afr Amer 145 mL/min (>60); Globulin 3.3 g/dL (2.2-4.2); Glucose 104 mg/dL (74-106); Potassium 3.4 mmol/L (3.5-5.1); Sodium Level 142 mmol/L (136-145)
[2018-09-13 05:06] LABS: HEPATITIS B SURFACE AG Negative (Negative); Hepatitis A AB, Total Negative (Negative); Hepatitis A IgM Antibody Negative (Negative); Hepatitis B Core AB IgM Negative (Negative); Hepatitis B Core Ab Total Negative (Negative); Hepatitis C Ab <0.1 s/co ratio (0.0-0.9)
[2018-09-13 11:36] LABS: Hep B Surface Antibodies Reactive (.)
== END ==
PROVIDERS: Family Provider Family Medicine Geriatric Medicine; PCP Family Medicine Geriatric Medicine; Visit Provider Family Medicine Geriatric Medicine
DX: K76.9 Liver disease, unspecified (principal); R74.8 Abnormal levels of other serum enzymes
CPT/HCPCS: 36415; 80053; 86704; 86705; 86706; 86708; 86709; 86803; 87340

== ENCOUNTER → 2018-09-13 08:49 | Outpatient (CLI) | payer OTHER, SELFPAY ==
--- NOTE | 2018-09-13 08:53 | US_ITS ---
STUDY: ABDOMINAL ULTRASOUND - RIGHT UPPER QUADRANT REASON FOR VISIT: Female, 43 years old. Abnormal liver enzymes TECHNIQUE: Ultrasound evaluation of the right upper quadrant was performed with real-time and static brooks-scale imaging. TECHNICAL QUALITY: Adequate. COMPARISON: None. FINDINGS: Liver: The liver measures 14.8 cm. There is normal echogenicity of the liver. The bile ducts are within normal limits. There is hepatic color flow. The direction of portal flow is hepatopetal. There is no demonstrated mass lesion. Gallbladder: Normal distended gallbladder. The gallbladder wall measures 3 mm. There is a negative sonographic Montiel's sign. There is no pericholecystic fluid. There is a solitary echogenic gallstone within the gallbladder. Common Bile Duct (C.B.D.): The common bile duct measures 4 mm. Pancreas: Normal size of the head, body and tail of the pancreas. There is normal echogenicity of the pancreas. There is no demonstrated pancreatic mass or cyst. Right Kidney: Normal size of the right kidney. The right kidney measures 11.0 cm. Normal renal cortex. There is no demonstrated renal mass or cyst. There is no right hydronephrosis. US/Abdomen Limited IMPRESSION: Normal sonographic appearance of the liver. Cholelithiasis without sonographic evidence of acute cholecystitis. Electronically Signed: Lloyd Lin, at 13:39 EDT Tel , Service support ,
== END ==
PROVIDERS: Family Provider Family Medicine Geriatric Medicine; PCP Family Medicine Geriatric Medicine; Referring Provider Family Medicine Geriatric Medicine; Visit Provider Family Medicine Geriatric Medicine
DX: R74.8 Abnormal levels of other serum enzymes (principal)
CPT/HCPCS: 76705

== ENCOUNTER → 2018-10-20 16:09 | Outpatient (CLI) | payer OTHER, SELFPAY ==
[2018-10-20 17:55] LABS: Erythrocyte Sedimentation Rate < 1 mm/hr (0-20)
[2018-10-22 16:07] LABS: ANTINUCLEAR ANTIBODIES DIRECT Negative (Negative)
[2018-10-23 09:39] LABS: Alpha Antitrypsin Serum 116 mg/dL (90-200)
[2018-10-23 09:40] LABS: Anti-Smooth Muscle ABS 5 Units (0-19)
== END ==
PROVIDERS: Family Provider Family Medicine Geriatric Medicine; PCP Family Medicine Geriatric Medicine; Referring Provider Internal Medicine Gastroenterology; Visit Provider Internal Medicine Gastroenterology
DX: K75.9 Inflammatory liver disease, unspecified (principal)
CPT/HCPCS: 36415; 82103; 83516; 85652; 86038

== ENCOUNTER → 2018-12-29 14:47 | Outpatient (CLI) | payer OTHER, SELFPAY ==
[2018-12-29 16:11] LABS: Absolute Lymphocyte Count 1.95 X10^3/uL (0.83-4.51); Absolute Neutrophil Count 3.7 X10^3/uL (2.0-7.7); Basophil# 0.06 X10^3/uL; Basophil% 0.9 % (0-1); Eosinophil# 0.04 X10^3/uL; Eosinophils% 0.6 % (0-5); Hematocrit 38.7 % (37-47); Hemoglobin 12.6 g/dL (12.0-15.0); Lymphocyte # 1.95 X10^3/ul (4.0); Lymphocyte % 30.9 % (19-41); Mean Corp Hgb Conc 32.6 g/dL (32-36); Mean Corpuscular Hgb 32.1 pg (27.0-32.0); Mean Corpuscular Volume 98.5 fL (81-99); Mean Platelet Vol. 10.4 fl (6.2-12.0); Monocyte% 9.5 % (0-10); NRBC Flagged by Analyzer 0 % (0-5); Neutrophil # 3.66 X10^3/uL (2.7-7.7); Neutrophil % 57.9 % (47-70); Platelet Count 275 K/mm3 (150-450); RBC Distribution Width CV 12.8 % (11.6-14.6); RBC Distribution Width SD 46.1 fl (35.1-43.9); Red Blood Count 3.93 M/mm3 (4.2-5.4); White Blood Count 6.3 K/mm3 (4.4-11.0)
[2018-12-29 16:20] LABS: Vitamin B12 1699 pg/mL (211-911); Vitamin D,25 Hydroxy 29.4 ng/mL (29.95-100.01)
[2018-12-29 16:53] LABS: ALB/GLOB Ratio 1.1 RATIO (0.9-2.4); AST(SGOT) 20 U/L (15-37); Alanine Aminotransfer ALT/SGPT 38 U/L (13-56); Albumin, Serum 3.4 g/dL (3.2-5.0); Alkaline Phosphatase 45 U/L (45-117); Anion Gap 6 (5-15); BUN 15 mg/dL (7-18); BUN/Creat Ratio 29.9 RATIO (10-20); Calcium,Total 8.4 mg/dL (8.5-10.1); Chloride 106 mmol/L (98-107); EST Glomerular Filtration Rate 143 mL/min (>60); Est Glom Filt Rate - Afr Amer 173 mL/min (>60); Ferritin 87 ng/mL (8-252); Globulin 3.1 g/dL (2.2-4.2); Glucose 73 mg/dL (74-106); Iron 90 ug/dL (50-170); Iron Binding Capacity,Total 294 ug/dL (250-450); PERCENT IRON SATURATION 30.6 % (15.0-55.0); Potassium 3.8 mmol/L (3.5-5.1); Protein, Total 6.5 g/dL (6.4-8.2); Sodium Level 142 mmol/L (136-145)
[2018-12-30 11:22] LABS: PTHIN 27.5 pg/mL (18.4-80.1)
[2019-01-02 06:07] LABS: Vitamin B1, Thiamine 158.3 nmol/L (66.5-200.0)
[2019-01-02 12:44] LABS: Copper, Serum or Plasma 86 ug/dL (72-166)
== END ==
PROVIDERS: Family Provider Family Medicine Geriatric Medicine; PCP Family Medicine Geriatric Medicine
DX: K90.89 Other intestinal malabsorption (principal); E55.9 Vitamin D deficiency, unspecified; E53.8 Deficiency of other specified B group vitamins
CPT/HCPCS: 36415; 80053; 82306; 82525; 82607; 82728; 82746; 83540; 83550; 83970; 84425; 85025

== ENCOUNTER → 2019-05-21 11:52 | Outpatient (CLI) | payer OTHER, SELFPAY ==
[2019-05-21 12:32] LABS: Absolute Lymphocyte Count 0.74 X10^3/uL (0.83-4.51); Absolute Neutrophil Count 1.7 X10^3/uL (2.0-7.7); Basophil# 0.04 X10^3/uL; Basophil% 1.3 % (0-1); Eosinophil# 0.11 X10^3/uL; Eosinophils% 3.6 % (0-5); Hematocrit 39.9 % (37-47); Hemoglobin 13.4 g/dL (12.0-15.0); Lymphocyte # 0.74 X10^3/ul (4.0); Mean Corp Hgb Conc 33.6 g/dL (32-36); Mean Corpuscular Hgb 31.8 pg (27.0-32.0); Mean Corpuscular Volume 94.5 fL (81-99); Mean Platelet Vol. 10.6 fl (6.2-12.0); Monocyte# 0.45 X10^3/uL; Monocyte% 14.6 % (0-10); NRBC Flagged by Analyzer 0 % (0-5); Neutrophil # 1.72 X10^3/uL (2.7-7.7); Neutrophil % 55.9 % (47-70); Platelet Count 229 K/mm3 (150-450); RBC Distribution Width CV 12.4 % (11.6-14.6); Red Blood Count 4.22 M/mm3 (4.2-5.4); White Blood Count 3.1 K/mm3 (4.4-11.0)
[2019-05-21 12:48] LABS: Vitamin D,25 Hydroxy 68.2 ng/mL (29.95-100.01)
[2019-05-21 13:15] LABS: ALB/GLOB Ratio 1.3 RATIO (0.9-2.4); AST(SGOT) 31 U/L (15-37); Alanine Aminotransfer ALT/SGPT 94 U/L (13-56); Albumin, Serum 3.9 g/dL (3.2-5.0); Alkaline Phosphatase 47 U/L (45-117); Anion Gap 5 (5-15); BUN 12 mg/dL (7-18); BUN/Creat Ratio 19.2 RATIO (10-20); Chloride 104 mmol/L (98-107); Creatinine, Serum 0.63 mg/dL (0.55-1.02); EST Glomerular Filtration Rate 110 mL/min (>60); Est Glom Filt Rate - Afr Amer 134 mL/min (>60); Globulin 3.1 g/dL (2.2-4.2); Glucose 98 mg/dL (74-106); Sodium Level 139 mmol/L (136-145); Uric Acid 4.8 mg/dL (2.6-6.0)
== END ==
PROVIDERS: PCP Family Medicine Geriatric Medicine; Visit Provider Family Medicine Geriatric Medicine
DX: E11.9 Type 2 diabetes mellitus without complications (principal); E55.9 Vitamin D deficiency, unspecified; I10 Essential (primary) hypertension; M10.9 Gout, unspecified
CPT/HCPCS: 36415; 80053; 82306; 84443; 84550; 85025

== ENCOUNTER → 2019-06-16 13:59 | Outpatient (CLI) | payer OTHER, SELFPAY ==
--- NOTE | 2019-06-16 09:40 | LES_PTH ---
PATIENT: OSVALDO MCCLURE LOC: POLAB3 U#:[id number] AGE/SX: 49/F ROOM: RE06/16/[address]: Dr. Luis E Lopez MD : 1975 BED: DIS: SPEC #: [id number] RECD: 06/16/19 15:09 STATUS: STEVENSON DANILO #: [id number] CORRINA: 06/16/19 09:[address]: Luis E Lopez Chi DEPT: SURGICAL PATHOLOGY RECD BY: John Benítez Tissues: Skin of leg, NOS Procedures: Surgery Specimen Level IV HEADER OPERATION: Right posterior leg biopsy PRE-OP DIAGNOSIS: Right posterior leg TISSUE SUBMITTED: Right posterior leg MICROSCOPIC DIAGNOSIS Right posterior leg, biopsy: A piece of fibrous nodule with focal fat necrosis and extensive dystrophic calcifications. Negative for malignancy. See comment. LAZARUS:kary 06/18/19 COMMENT Correlation with clinical findings and appropriate follow up are necessary. MICROSCOPIC DESCRIPTION Slides are reviewed. GROSS DESCRIPTION Received in fixative is one container labeled with the patient's name and designated right posterior leg. The specimen consists of a piece of orozco-white soft tissue measuring 0.6 x 0.5 x 0.1 cm. A nodule is noted disrupted from the rest of the tissue measuring 0.2 cm in greatest dimension. The entire specimen is submitted in one cassette. / SJ:rg 06/17/19 TC:5 CPT: 40201
== END ==
PROVIDERS: PCP Family Medicine Geriatric Medicine; Visit Provider Family Medicine Geriatric Medicine
DX: M67.40 Ganglion, unspecified site (principal)
CPT/HCPCS: 88305

== ENCOUNTER → 2019-09-30 16:40 | Outpatient (CLI) | payer OTHER, SELFPAY ==
[2019-09-24 16:26] VITALS: BMI 37.7
--- NOTE | 2019-09-30 16:40 | BI_ITS ---
MAMMOGRAPHY - BILATERAL SCREENING REASON FOR EXAM: Female, 44 years old. Routine annual screening examination. PERTINENT HISTORY: Non-contributory. TECHNIQUE: Digital bilateral breast marisol (3D mammographic acquisition) in the CC and MLO projections. 2-D mediolateral oblique (MLO) and craniocaudad (CC) views of both breasts were obtained. CAD: Full Field Digital Mammography with Computer Added Detection was performed. COMPARISON: Comparison is made with prior examination dated March 26, 2013. FINDINGS: Breast Composition: The breasts are heterogeneously dense, which may obscure small masses. There are no dominant masses or suspicious calcifications. No other significant abnormalities are identified. There has been no significant change since the prior study. BI/SCREEN MAMM (CAD) W/MARISOL BILAT IMPRESSION: Stable bilateral screening mammogram. Yearly follow-up mammogram recommended. (A) ASSESSMENT CATEGORY: BIRADS Category 1: Negative. A letter regarding these results will be sent to the patient by the facility within 30 days. Approximately 10% of breast cancers are not detected by mammography. A normal mammogram should not delay biopsy of a clinically suspicious abnormality. [id number] Electronically Signed: Bj Amaro, at 8:12 EDT , Service support ,
== END ==
PROVIDERS: PCP Family Medicine Geriatric Medicine; Referring Provider Surgery; Visit Provider Surgery
DX: Z12.31 Encounter for screening mammogram for malignant neoplasm of breast (principal); N62 Hypertrophy of breast
CPT/HCPCS: 77063; 77067

== ENCOUNTER → 2020-01-29 07:08 | Outpatient (CLI) | payer OTHER, SELFPAY ==
[2019-09-24 16:26] VITALS: BMI 37.7
[2020-01-29 09:42] LABS: Absolute Lymphocyte Count 0.94 X10^3/uL (0.83-4.51); Basophil# 0.04 X10^3/uL; Basophil% 1.1 % (0-1); Eosinophil# 0.07 X10^3/uL; Hematocrit 40.3 % (37-47); Hemoglobin 12.8 g/dL (12.0-15.0); Lymphocyte # 0.94 X10^3/ul (4.0); Lymphocyte % 26.9 % (19-41); Mean Corp Hgb Conc 31.8 g/dL (32-36); Mean Corpuscular Hgb 31.4 pg (27.0-32.0); Mean Corpuscular Volume 98.8 fL (81-99); Monocyte# 0.43 X10^3/uL; Monocyte% 12.3 % (0-10); NRBC Flagged by Analyzer 0 % (0-5); Neutrophil # 2.02 X10^3/uL (2.7-7.7); Neutrophil % 57.7 % (47-70); Platelet Count 278 K/mm3 (150-450); RBC Distribution Width CV 12.5 % (11.6-14.6); RBC Distribution Width SD 45.7 fl (35.1-43.9); Red Blood Count 4.08 M/mm3 (4.2-5.4); White Blood Count 3.5 K/mm3 (4.4-11.0)
[2020-01-29 10:16] LABS: Cholesterol 179 mg/dL (200); Free T3 2.8 pg/mL (2.18-3.98); High Density Lipoprotein 93 mg/dL; T4 Total, Thyroxin 8.9 ug/dL (4.8-13.9); Thyroid Stim Hormone (TSH) 1.96 uIU/mL (0.358-3.74); Triglycerides 63 mg/dL; Very Low Density Lipoprotein 13 mg/dL (5-40)
[2020-01-29 10:42] LABS: Vitamin D,25 Hydroxy 52.9 ng/mL
== END ==
PROVIDERS: PCP Family Medicine; Referring Provider Family Medicine; Visit Provider Family Medicine
DX: Z00.00 Encounter for general adult medical examination without abnormal findings (principal); E03.9 Hypothyroidism, unspecified; E55.9 Vitamin D deficiency, unspecified
CPT/HCPCS: 36415; 80061; 82306; 84436; 84443; 84481; 85025

== ENCOUNTER → 2020-02-10 07:21 | Outpatient (CLI) | payer OTHER, SELFPAY ==
[2019-09-24 16:26] VITALS: BMI 37.7
[2020-02-10 07:47] LABS: Absolute Lymphocyte Count 0.85 X10^3/uL (0.83-4.51); Absolute Neutrophil Count 2.4 X10^3/uL (2.0-7.7); Basophil# 0.03 X10^3/uL; Basophil% 0.8 % (0-1); Eosinophil# 0.09 X10^3/uL; Eosinophils% 2.4 % (0-5); Hematocrit 40.9 % (37-47); Hemoglobin 13.3 g/dL (12.0-15.0); Lymphocyte # 0.85 X10^3/ul (4.0); Lymphocyte % 22.6 % (19-41); Mean Corp Hgb Conc 32.5 g/dL (32-36); Mean Corpuscular Hgb 31.6 pg (27.0-32.0); Mean Corpuscular Volume 97.1 fL (81-99); Mean Platelet Vol. 10.5 fl (6.2-12.0); Monocyte# 0.43 X10^3/uL; Monocyte% 11.4 % (0-10); NRBC Flagged by Analyzer 0 % (0-5); Neutrophil # 2.35 X10^3/uL (2.7-7.7); Neutrophil % 62.5 % (47-70); Platelet Count 257 K/mm3 (150-450); RBC Distribution Width CV 12.3 % (11.6-14.6); RBC Distribution Width SD 43.8 fl (35.1-43.9); Red Blood Count 4.21 M/mm3 (4.2-5.4); White Blood Count 3.8 K/mm3 (4.4-11.0)
[2020-02-10 08:22] LABS: PTHIN 46.4 pg/mL (18.4-80.1)
[2020-02-10 08:27] LABS: Vitamin B12 357 pg/mL (211-911); Vitamin D,25 Hydroxy 49.6 ng/mL
[2020-02-10 09:02] LABS: ALB/GLOB Ratio 1.2 RATIO (0.9-2.4); AST(SGOT) 23 U/L (15-37); Alanine Aminotransfer ALT/SGPT 46 U/L (13-56); Albumin, Serum 3.8 g/dL (3.2-5.0); Alkaline Phosphatase 44 U/L (45-117); Anion Gap 4 (5-15); BUN 15 mg/dL (7-18); BUN/Creat Ratio 21.4 RATIO (10-20); Calcium,Total 8.9 mg/dL (8.5-10.1); Chloride 107 mmol/L (98-107); EST Glomerular Filtration Rate 97 mL/min (>60); Est Glom Filt Rate - Afr Amer 117 mL/min (>60); Ferritin 73 ng/mL (8-252); Globulin 3.1 g/dL (2.2-4.2); Glucose 96 mg/dL (74-106); Iron 102 ug/dL (50-170); Iron Binding Capacity,Total 300 ug/dL (250-450); Potassium 4.1 mmol/L (3.5-5.1); Protein, Total 6.9 g/dL (6.4-8.2); Sodium Level 142 mmol/L (136-145)
[2020-02-14 03:06] LABS: Vitamin B1, Thiamine 183.7 nmol/L (66.5-200.0)
[2020-02-15 04:41] LABS: Copper, Serum or Plasma 94 ug/dL (72-166)
== END ==
PROVIDERS: PCP Family Medicine
DX: E55.9 Vitamin D deficiency, unspecified (principal); D64.9 Anemia, unspecified; E53.8 Deficiency of other specified B group vitamins; K90.9 Intestinal malabsorption, unspecified
CPT/HCPCS: 36415; 80053; 82306; 82525; 82607; 82728; 82746; 83540; 83550; 83970; 84425; 85025

== ENCOUNTER 2020-02-22 15:23 | Observation (INO) | payer OTHER, SELFPAY ==
[2019-09-24 16:26] VITALS: BMI 37.7
--- NOTE | 2020-02-21 15:51 | PCM.HP.BLA ---
History and Physical Date of Admission: 02/22/20 HISTORY OF PRESENT ILLNESS 44 year old female presents with complaints of bilateral macromastia as well as associated painful symptomatology of neck pain, thoracic back pain, bilateral shoulder pain from shoulder grooving from the weight of her breast on her bra straps, an inframammary intertrigo for which she uses powders for relief. She denies any trauma to her breasts. Denies any nipple discharge. She sees a chiropractor for her neck and back pain for her painful symptomatology without much relief. She had gastric bypass in 2018 and has lost 100 lbs but still has her painful symptomatology. She had a mammogram done on 09/30/19. It showed the breasts are heterogeneously dense, which may obscure small masses. There are no dominant masses or suspicious calcifications. No other significant abnormalities are identified. There has been no significant change since the prior study. We have received medical approval for the surgery from her insurance carrier. The surgery is scheduled for 02/22/20. PAST MEDICAL HISTORY Excessive weight loss Intertrigo Shoulder pain Chronic thoracic back pain Chronic neck pain Macromastia Hyperlipidemia Obstructive sleep apnea Obesity Hypertension Type 2 diabetes mellitus without complications Anxiety and depression Carpal tunnel syndrome Frequent headaches Gout Hypothyroidism GERD (gastroesophageal reflux disease) PAST SURGICAL HISTORY gastric bypass carpal tunnel release ALLERGIES No Known Allergies MEDICATIONS Levothyroxine [Synthroid] allopurinol bupropion HCl Mv-Min/Iron/Folic/Calcium/Vitk [Women's Multivitamin Tablet] diazepam FAMILY HISTORY Mother - CAD (coronary artery disease), [place] age 47, Hypertension Brother - Hypertension, Diabetes Other - Arthritis SOCIAL HISTORY Smoking Status: Never smoker alcohol intake: current alcohol intake frequency: holidays/special occasions only substance use type: does not use REVIEW OF SYSTEMS General - Denies fever, fatigue. She has had 100 lb weight loss since 2018 after Gastric Bypass. Eyes - Denies cataracts and glaucoma. ENT - Denies nasal congestion and sore throat. Endocrine - Denies excessive thirst and urination. She has hypothyroid and is on Synthroid. Type 2 DM that is controlled since she lost weight. Skin - Denies suspicious lesions and skin cancer. Has inframammary intertrigo for which she uses powders for relief. Musculoskeletal - Denies weakness of muscles and joints, and arthritis. Has joint pain and joint stiffness and neck pain and back pain. Her neck and back pain involve cervical and thoracic area. Has bilateral shoulder pain from shoulder grooving from the weight of her breasts on her bra straps. History of gout that she take Allopurinol for. Left carpal tunnel repair. Neuro - She has a history of headaches and migraines. Cardiovascular - Denies chest pain, fatigue, and shortness of breath with exertion. Hypertension and hyperlipidemia controlled without medication since she lost 100 lbs. Psych - Has a history of anxiety and depression, she is on Bupropion. Respiratory - Denies chronic cough and shortness of breath. No longer has PRAVEENA since her weight loss. Gastrointestinal - Denies nausea, vomiting, diarrhea, and constipation. Hematologic - Denies abnormal bruising and bleeding. Genitourinary - Denies hematuria and urinary frequency. PHYSICAL EXAMINATION General - Alert and oriented. Her bra size is 38 C. HEENT - PERRL. EOMI. Throat is clear. Neck - Supple. No cervical adenopathy. There is some pericervical soft tissue tenderness. Lungs- Clear to auscultation. Heart - Regular rate and rhythm. Breasts - Patient has bilateral macromastia. No breast masses palpable. No axillary adenopathy noted. Distance from midclavicular line on the left to nipple is 33 cm and from the nipple to the inframammary fold is 10 cm. Distance from midclavicular line on the right to the nipple is 32 cm and from the nipple to the inframammary fold is 10 cm. Nipple areolar complex diameter is 6 cm bilaterally. No active inframammary intertrigo noted at this time. Abdomen - Soft and non distended. Back - No bony tenderness noted. There is perivertebral soft tissue tenderness in the upper thoracic area. Extremities - FROM. No axillary adenopathy. Radial pulses are palpable. There is some bilateral shoulder tenderness with shoulder grooving from the weight of her breasts on her bra straps. Neuro - CN II-XII grossly intact. Psych - Normal mood and affect. ASSESSMENT 1. Bilateral macromastia. 2. Neck pain. 3. Thoracic back pain. 4. Bilateral shoulder pain from shoulder grooving from the weight of the breasts on her bra straps. 5. Inframammary intertrigo. PLAN Discussed with the patient the procedure of breast reduction mammoplasty. I feel this procedure would be beneficial in this patient as it would help relieve her painful symptomatology. She had a mammogram done on 09/30/19. It showed the breasts are heterogeneously dense, which may obscure small masses. There are no dominant masses or suspicious calcifications. No other significant abnormalities are identified. There has been no significant change since the prior study. At some point postoperatively would like to get a breast reduction baseline mammogram. I would remove approximately 400 grams of breast tissue per side. We will send the tissue to pathology for analysis to rule out carcinoma. Discussed with patient the extent of scarring for this procedure. The biggest risk for wound healing problems is the T-zone area. Usually wound care and sometimes antibiotics are necessary for healing in this area. She would have drains in for a few day depending on the amount of tissue that is removed. She will be on antibiotics until the drains are removed. She is at more risk of wound healing problems because of her history of gastric bypass. In general, the final breast size will be in the B range. Patient voices understanding. Surgery will be done under general anesthesia with a surgical observation overnight stay in the hospital. She will have drains in for a few days and be maintained on antibiotics until the drains are removed. She will be on a lifting restriction for 6 weeks and wear a surgical compression bra for 6 weeks. We have received medical approval from her insurance carrier for the surgery. It is scheduled for 02/22/20. Patient was informed of the risks and complication of the procedure including alternatives to surgery. These were discussed with her personally. She voices understanding and wishes to proceed. Some of the risks and complications were included in a form from the [employer]. She had last minute questions regarding her surgery that were answered personally and to her satisfaction. Her consents were signed. She stated she was getting a little nervous about the surgery. Wrote a script for Valium (5 tabs) that she can take at night to help with her preop anxiety. We discussed the current risks associated with COVID-19. While it is understood that there is a community spread of COVID-19, the risk of rob COVID-19 while at [facility] ([facility]) is very low; however, the risk cannot be completely mitigated because of the community spread of the disease. We discussed in detail the risk of exposure to and/or potential harm posed by the COVID-19 virus with having a surgery/procedure at this time versus the risk of delaying the surgery/procedure. It is not possible to know either the risk of delaying the surgery or procedure or chance of getting an infection with perfect accuracy, but a joint decision was made to proceed at this time with the scheduled surgery/procedure as indicated on the consent form. Patient was notified that we will need to comply with any screening or testing WC wishes to perform or that surgery may be delayed for any positive results. Discussed with the patient that I was tested for COVID-19 on 10/01/19 which was negative and on 10/15/19 which was negative and on 10/29/19 which was negative and on 11/12/19 which was negative and on 11/26/19 which was negative and on 12/17/19 which was negative and on 01/07/20 which was negative and on 02/11/20 which was negative. My testing regimen at this time is to be COVID-19 tested every 2 weeks or so. Procedure Criteria Procedure Type: Elective COVID Risk Discussion: The surgeon/proceduralist and patient have discussed in detail the risk of exposure to and/or potential harm posed by the COVID-19 virus with having a surgery/procedure at this time versus the risk of delaying the surgery/procedure. It is not possible to know either the risk of delaying the surgery or procedure or chance of getting an infection with perfect accuracy, but a joint decision was made between the patient and the surgeon/proceduralist to proceed at this time with the scheduled surgery/procedure as indicated on the consent form.
[2020-02-22] VITALS (14 sets, daily range): BP systolic 88–113; BP diastolic 47–66; PULSE 57–98; RESP 16–18; TEMP 36.3–37; O2SAT 89–100; BMI 27.1
[2020-02-22 06:11] LABS: Internal QC Validated? YES +Cl - CLEAR BKGD; Pregnancy, Urine Negative Negative
[2020-02-22 06:46] LABS: Bedside Glucose 78 mg/dL (70-110)
[2020-02-22] MEDS: Gabapentin 600 MG Tablet PO (06:49)
[2020-02-22] MEDS: Scopolamine 1mg/72hr Patch 1 PATCH TRANSDERM. (06:49)
[2020-02-22] MEDS: Acetaminophen 500 MG Tablet 1000 MG PO ×3 (06:49→23:19)
[2020-02-22] MEDS: Lactated Ringers 1,000 ML 40 ML IV (06:50)
[2020-02-22] MEDS: Cefazolin 2 GM in 0.9% Normal Saline 100 ML IV (07:27)
--- NOTE | 2020-02-22 07:30 | BR_PTH ---
PATIENT: OSVALDO MCCLURE LOC: MS3 U#:[id number] AGE/SX: 44/F ROOM: AL323 RE02/22/[address]: Dr. Lupillo Cochran MD : 1975 BED: 1 DIS: 02/23/2020 SPEC #: [id number] RECD: 02/22/20 12:29 STATUS: STEVENSON REQ #: [id number] CORRINA: 02/22/20 07:[address]: Lupillo Cochran DEPT: SURGICAL PATHOLOGY RECD BY: Mariluz Sweeney ENTERED: 02/22/20 12:56 SP TYPE: MAMOPLASTY OTHR DR: Dr. Florian Johns MD Tissues: A - Right breast, NOS B - Left breast, NOS Procedures: Surgery Specimen Level IV HEADER OPERATION: ERAS, breast reduction mammoplasty PRE-OP DIAGNOSIS: Bilateral macromastia; neck pain; thoracic back pain; bilateral shoulder pain; inframammary intertrigo TISSUE SUBMITTED: A - Right breast tissue, B - Left breast tissue MICROSCOPIC DIAGNOSIS A. Right breast tissue, breast reduction mammoplasty: Benign breast tissue with focal mild intraductal hyperplasia without atypia (386 gm). Skin, no pathologic diagnosis. B. Left breast tissue, breast reduction mammoplasty: Benign breast tissue with focal mild intraductal hyperplasia without atypia (400 gm). Skin, no pathologic diagnosis. SJ:kary 02/24/20 MICROSCOPIC DESCRIPTION Slides are reviewed. GROSS DESCRIPTION A - Received in fixative is one container labeled with the patient's name and designated right breast. The specimen consists of multiple irregular fragments of orozco-yellow soft tissue that in aggregate measure 22 x 19 x 3 cm and weighing in aggregate 386 gm. Skin is attached to the larger fragments of soft tissue. No cutaneous lesions are identified. Ordnance Engineering Technician sections are submitted in five cassettes. B - Received in fixative is one container labeled with the patient's name and designated left breast. The specimen consists of multiple irregular fragments of orozco-yellow soft tissue that in aggregate measure 22 x 19 x 3 cm and weighing in aggregate 400 gm. Skin is attached to the larger fragments of soft tissue. No cutaneous lesions are identified. Ordnance Engineering Technician sections are submitted in five cassettes. / AM:kary 02/23/20 TC:5 CPT: 37282 x2
[2020-02-22 07:36] LABS: Prothrombin Time (Protime)PT. 12.7 SECONDS (11.7-14.9)
[2020-02-22 07:37] LABS: Partial Thromboplast Time 27.1 Seconds (24.1-36.2)
[2020-02-22] MEDS: Lidocaine 1% /Epi 1:100 (20ml) 20 ML Vial (08:00)
--- NOTE | 2020-02-22 12:29 | OP.PCM_ITS ---
Report of Operation Date of Procedure: 02/22/20 Pre-Operative Diagnosis: 1. Bilateral macromastia. 2. Neck pain. 3. T horacic back pain. 4. Bilateral shoulder pain from shoulder grooving from the weight of the breasts on her bra straps. 5. Inframammary intertrigo. 6. Excessive weight loss. 7. History of gastric bypass surgery. Post-Operative Diagnosis: Same. Surgery/Procedure Performed:: Bilateral breast reduction mammaplasty. Description of Surgical Findings:: 44 year old female presents with complaints of bilateral macromastia as well as associated painful symptomatology of neck pain, thoracic back pain, bilateral shoulder pain from shoulder grooving from the weight of her breast on her bra straps, an inframammary intertrigo for which she uses powders for relief. She denies any trauma to her breasts. Denies any nipple discharge. She sees a chiropractor for her neck and back pain for her painful symptomatology without much relief. She had gastric bypass in 2018 and has lost 100 lbs but still has her painful symptomatology. She had a mammogram done on 09/30/19. It showed the breasts are heterogeneously dense, which may obscure small masses. There are no dominant masses or suspicious calcifications. No other significant abnormalities are identified. There has been no significant change since the prior study. We have received medical approval for the surgery from her insurance carrier. Patient was informed of the risks and complications of the procedure including alternatives to surgery. These were discussed with the patient personally. Patient voices understanding and wishes to proceed. Some of the risks and complications were included in a form from the [place] [employer]. IV Fluids - 2500 ml. Urine Output - 1050 ml. Tissue removed from the right breast - 492 grams. Tissue removed from the left breast - 360 grams. I used AmnioFill Placental Connective Tissue Powder, (500 mg per side). Catalog Number - [id number]. Lot Number - [id number]. Expiration - June 30, 2024, (right breast). Catalog Number - [id number]. Lot Number - [id number]. Expiration - September 29, 2024, (left breast). I used Niko absorbable hemostat, (I used 2 vials, one in each breast). Reference Number - [id number]. Lot Number - [id number]. Expiration - August 26, 2024, (both breasts). manager city: [place]. manager city: [place]. Type of Anesthesia:: General Specimen's removed: 1. Right breast tissue to Pathology. 2. Left breast tissue to Pathology. Drains: Rob x2 (one in each breast). Estimated Blood Loss (mL): 150 ml. Description of Procedure: In the preop area, the patient was placed in the sitting position and preoperative markings were made. The sternum midline was marked down to the umbilicus. The inframammary folds were marked bilaterally. The midclavicular line was then marked down to the nipple, then from the nipple to the inframammary fold. The inframammary fold was then superimposed on the midclavicular line and I made a point 1 cm below that to be the new position of the nipple-areolar complex. 7 cm lines were then drawn divergent from that point to encompass the nipple-areolar complex. The distance between the divergent lines was 9 cm. The patient was then placed in the supine position and taken to the operating room and placed under general anesthesia and her veronika sts were prepped and draped in usual fashion. Ioban draping was also used. SCDs were placed for DVT prophylaxis. Perioperative antibiotics were given intravenously. A Madden catheter was also placed. For the surgery I wore an N95 mask and wore proper eye protection. I then brady straight lines down from the lines drawn divergent around the nipple-areolar complex down to the inframammary fold. The width of the pedicle is 9 cm. I then used a 42 mm circular template for a new size of the nipple-areolar complex. The central markings were infiltrated with Xylocaine and epinephrine. The central skin was then deepithelialized. I started on the left side first and then went to the right side. I then mobilized medial and lateral breast flaps at the level of Benny's fascia down to within a centimeter of the chest wall. This was met in the midline of the breast with dissection at the level of Benny's fascia down to within a centimeter of the chest wall. Once the central breast mound pedicle was from the skin envelope, the reduction was then begun. Most of the tissue was removed from the superior aspect of the breast and the lateral aspect of the breast. I then sutured the leading edge of the medial and lateral breast flaps to the midline of the inframammary fold with 2-0 Vicryl suture. The vertical incision was approximated using surgical clips. The excess tissue from the medial and lateral breast flaps were excised and the horizontal incision was approximated using surgical clips. The patient was then placed in a sitting position. Using a vertical limb length of 5 cm, I brady the new position of the new nipple-areolar complexes on both breasts. They were in good position on the central aspect of the breast mound. Good symmetry was noted between the left breast and the right breast. Good shape and contour and projection was noted and appeared clinically to be a B cup. The patient was then placed back in the supine position and the surgical clips were removed. The breast wounds were then irrigated with Irrisept 0.05% Chlorhexidine solution which was followed by saline irrigation. Hemostasis was obtained using electrocautery. The tissue r emoved from the left breast was 360 grams. The tissue removed from the right breast was 492 grams. The tissue that was removed from the breasts was sent to Pathology for analysis to rule out carcinoma. After hemostasis was obtained using electrocautery, I then sprayed Niko absorbable hemostat into both breast wounds. I used one vial for each side. I then placed a size 15 Rob drain into each breast wound to be brought through the lateral aspect of the horizontal incision. I then closed the breast wounds by first approximating the leading edge of the medial and lateral breast flaps to the midline of the inframammary fold with 2-0 Vicryl suture. The deep dermis and subcutaneous tissue of the vertical incision and the horizontal incisions were approximated using 3-0 Monocryl interrupted sutures. While these sutures were being placed, I placed AmnioFill placental connective tissue powder in the Tzone area to help promote healing in this area. I used 500 mg of AmnioFill for each breast at the Tzone area. The horizontal incision was then approximated using 4-0 V-Loc unidirectional barbed running subcuticular suture. I also placed a few 4-0 Prolene vertical mattress interrupted sutures at the level of the Tzone. The vertical incision was then closed on the skin with 4-0 Prolene interrupted sutures. With a vertical limb length of 5 cm, I brady a circular incision where the nipple-areolar complex would be brought through this keyhole incision. Incisions were made and the nipple areolar complex was brought through the keyhole incision. The nipple-areolar complex was secured to the breast skin using 3-0 Monocryl interrupted sutures for deep dermis and subcutaneous tissue. The skin was approximated using 4-0 Prolene simple interrupted sutures. This was then covered with Histoacryl skin tissue adhesive. I sutured the drain to the skin using 3-0 nylon suture. At the end of the procedure, the breasts were soft with no evidence of vascular compromise. No evidence of hematomas were noted. The nipples were viable. I then dressed the breasts with a Kerlix gauze and a compression aide wrap. Then patient tolerated the procedure well and will be sent to the recovery room in satisfactory condition. She will be admitted for surgical observation overnight stay. She will go home tomorrow once she is tolerating oral pain medication. I will remove the drains in a few days. She will keep her head elevated during the initial postoperative period. She will be maintained on a lifting restriction and keep her head elevated during the initial postoperative period. Post-discharge, she may get a compression sports bra as well. She will have the Madden removed in the morning. She will be sent home on antibiotics and pain medicine. Sutures will be removed in 1-2 weeks. Grafts/Implants Used: AmnioFill Placental Connective Tissue Powder x2, Niko x2. - Complications None. - Admit VTE Documentation VTE Present on Admission: No VTE Mechan Device Prophylaxis: SCD's VTE Pharm Prophylaxis ordered?: Yes Surgery Charges CPT - 27336 ICD-10 - N62, M54.2, M54.6, M25.519, L30.4, R63.4, Z98.84 85160-40 N62, M54.2, M54.6, M25.519, L30.4, R63.4, Z98.84
[2020-02-22] MEDS: Lactated Ringers 1,000 ML 60 ML IV ×3 (13:40→22:44)
[2020-02-22] MEDS: Scopolamine 1mg/72hr Patch 1 PATCH TD (13:46)
[2020-02-22] MEDS: HYDROmorphone 0.5 MG/0.5 ML SYRINGE IV (15:42)
[2020-02-22] MEDS: Cefazolin 1 GM/50 ML BAG IV ×2 (16:34→23:15)
[2020-02-22] MEDS: Gabapentin 100 MG Capsule 200 MG PO (17:27)
[2020-02-22 17:40] LABS: Bedside Glucose 141 mg/dL (70-110)
[2020-02-22] MEDS: Docusate Sodium 100 MG Capsule PO (20:24)
[2020-02-22 22:05] LABS: Bedside Glucose 126 mg/dL (70-110)
[2020-02-23 03:27] VITALS: BP 101/55; PULSE 67; RESP 16; TEMP 36.9; O2SAT 95
[2020-02-23] MEDS: oxyCODONE 5 MG Tablet PO ×2 (03:31→08:46)
--- NOTE | 2020-02-23 03:45 | NURSING ---
This RN and Cristhian RN assisted pt with ambulating to recliner chair. Pt tolerated well.
[2020-02-23] MEDS: Levothyroxine 88 MCG Tablet PO (05:25)
[2020-02-23] MEDS: Acetaminophen 500 MG Tablet 1000 MG PO ×2 (05:26→12:45)
[2020-02-23 06:09] VITALS: BP 100/55; PULSE 84; RESP 16; TEMP 36.8; O2SAT 97
[2020-02-23 06:16] LABS: Hematocrit 31.7 % (37-47); Hemoglobin 10.5 g/dL (12.0-15.0); Mean Corp Hgb Conc 33.1 g/dL (32-36); Mean Corpuscular Hgb 32.5 pg (27.0-32.0); Mean Corpuscular Volume 98.1 fL (81-99); Mean Platelet Vol. 10.6 fl (6.2-12.0); Platelet Count 222 K/mm3 (150-450); RBC Distribution Width CV 12.7 % (11.6-14.6); RBC Distribution Width SD 45.9 fl (35.1-43.9); Red Blood Count 3.23 M/mm3 (4.2-5.4)
--- NOTE | 2020-02-23 06:25 | NURSING ---
Madden catheter removed at this time per order. Pt tolerated well.
[2020-02-23 06:45] LABS: Anion Gap 5 (5-15); BUN 10 mg/dL (7-18); BUN/Creat Ratio 17.1 RATIO (10-20); Calcium,Total 7.9 mg/dL (8.5-10.1); Chloride 108 mmol/L (98-107); Creatinine, Serum 0.59 mg/dL (0.55-1.02); EST Glomerular Filtration Rate 119 mL/min (>60); Est Glom Filt Rate - Afr Amer 144 mL/min (>60); Estimated Creatinine Clearance 119.56 ml/min; Glucose 131 mg/dL (74-106); Potassium 3.6 mmol/L (3.5-5.1); Sodium Level 139 mmol/L (136-145)
[2020-02-23 06:46] LABS: Bedside Glucose 109 mg/dL (70-110)
[2020-02-23 08:21] VITALS: O2SAT 96
[2020-02-23 08:36] VITALS: BP 100/61; PULSE 95; RESP 18; TEMP 37.1; O2SAT 96
[2020-02-23] MEDS: Cefazolin 1 GM/50 ML BAG IV (08:46)
[2020-02-23] MEDS: Ensure Surgery 237 ML LIQUID PO ×2 (08:47→12:44)
[2020-02-23] MEDS: Docusate Sodium 100 MG Capsule PO (08:48)
[2020-02-23] MEDS: Allopurinol 300 MG Tablet PO (08:48)
[2020-02-23] MEDS: Multivitamins,Ther W-Minerals Tablet 1 TABLET PO (08:48)
[2020-02-23] MEDS: Enoxaparin 40 MG/0.4 ML Syringe SC (08:48)
[2020-02-23] MEDS: Gabapentin 100 MG Capsule 200 MG PO ×2 (08:48→12:44)
[2020-02-23] MEDS: buPROPion (XL) 150 MG TABLET.XL PO (08:49)
[2020-02-23 11:30] LABS: Bedside Glucose 85 mg/dL (70-110)
--- NOTE | 2020-02-23 13:39 | PN.SURG_ITS ---
Subjective: Postop #1 Patient is resting comfortably. - Physical Exam Vitals/I&O's: Vital Signs Temp Pulse Resp BP Pulse Ox 98.7 F 95 18 100/55 L 96 02/23/20 08:36 02/23/20 08:36 02/23/20 08:36 02/23/20 06:09 02/23/20 08:36 Oxygen Flow Rate (L/min) 6 Oxygen Delivery Method Room Air Weight: 173 lb 11.588 oz Body Mass Index (BMI) 27.1 Intake and Output for Last 24 Hours 02/21/20 02/22/20 02/23/20 23:59 23:59 23:59 Intake Total 3007 / 3007 642 / 642 Output Total 2695 / 2695 665 / 665 Balance 312 / 312 -23 / -23 Drainage 95 ml yesterday, 65 ml today. General: Alert, Oriented x3 HEENT: PERRLA, EOMI Oral: Moist Mucosa Neck: Supple Abdomen: Soft, Non-Distended Skin: Incision - bilateral breast incisions are dry and intact. Breasts are soft and symmetrical. No clinical evidence of hematoma. Nipples are viable. Neurological: Cranial nerves II-XII grossly intact Psych/Mental Status: Normal Affect, Appropriate Laboratory Results 02/22/20 17:25: POC Glucose 141 H 02/22/20 22:00: POC Glucose 126 H 02/23/20 05:44: WBC 6.0, RBC 3.23 L, Hgb 10.5 L, Hct 31.7 L, MCV 98.1, MCH 32.5 H, MCHC 33.1, RDW Std Deviation 45.9 H, RDW Coeff of Calixto 12.7, Plt Count 222, MPV 10.6 02/23/20 05:44: Sodium 139, Potassium 3.6, Chloride 108 H, Carbon Dioxide 26.0, Anion Gap 5, BUN 10, Creatinine 0.59, Estim Creat Clear Calc 119.56, Est GFR (MDRD) Af Amer 144, Est GFR (MDRD) Non-Af 119, BUN/Creatinine Ratio 17.1, Glucose 131 H, Calcium 7.9 L, Prealbumin 16.0 L 02/23/20 06:29: POC Glucose 109 02/23/20 11:22: POC Glucose 85 Current Medications Acetaminophen (Acetaminophen 500 Mg Tablet) 1,000 mg PO Q6 [facility] Last Admin: 02/23/20 12:45 Dose: 1,000 mg Documented by: Allopurinol (Allopurinol 300 Mg Tablet) 300 mg PO DAILYCM [facility] Last Admin: 02/23/20 08:48 Dose: 300 mg Documented by: Bupropion HCl (Bupropion (Xl) 150 Mg Tablet.Xl) 150 mg PO QAM [facility] Last Admin: 02/23/20 08:49 Dose: 150 mg Documented by: Docusate Sodium (Docusate Sodium 100 Mg Capsule) 100 mg PO BID [facility] Last Admin: 02/23/20 08:48 Dose: 100 mg Documented by: Enoxaparin Sodium (Enoxaparin 40 Mg/0.4 Ml Syringe) 40 mg SC DAILY [facility] Last Admin: 02/23/20 08:48 Dose: 40 mg Documented by: Enteral Nutritional Formula (Ensure Surgery 237 Ml Liquid) 237 ml PO TIDCM [facility] Last Admin: 02/23/20 12:44 Dose: 237 ml Documented by: Gabapentin (Gabapentin 100 Mg Capsule) 200 mg PO TIDCM [facility] Last Admin: 02/23/20 12:44 Dose: 200 mg Documented by: Hydromorphone HCl (Hydromorphone 1 Mg/Ml Syringe) 0.5 - 1 mg IV Q3H PRN PRN PRN Reason: Pain Score 6-10 Hydromorphone HCl (Hydromorphone 0.5 Mg/0.5 Ml Syringe) 0.5 - 1 mg IV Q3H PRN PRN PRN Reason: Pain Score 6-10 Last Admin: 02/22/20 15:42 Dose: 0.5 mg Documented by: Lactated Ringer's () 1,000 mls @ 60 mls/hr IV .[id number] [facility] Last Infusion: 02/23/20 06:19 Dose: 60 mls/hr Documented by: Cefazolin Sodium () 1 gm in 50 mls @ 100 mls/hr IV Q8H [facility] Last Infusion: 02/23/20 09:16 Dose: Infused Documented by: Sodium Chloride () 250 mls @ 15 mls/hr IV .[id number] PRN PRN Reason: Saline Flush Sodium Chloride () 250 mls @ 15 mls/hr IV .[id number] PRN PRN Reason: Additional IVPB Infusion Levothyroxine Sodium (Levothyroxine 88 Mcg Tablet) 88 mcg PO DAILY@0600 [facility] Last Admin: 02/23/20 05:25 Dose: 88 mcg Documented by: Magnesium Chloride (Magnesium Chloride 64 Mg Delay Rel.Tablet) 128 mg PO DAILY PRN PRN PRN Reason: Constipation Multivitamins/Minerals (Multivitamins,Ther W-Minerals Tablet) 1 tablet PO DAILYCM [facility] Last Admin: 02/23/20 08:48 Dose: 1 tablet Documented by: Ondansetron HCl (Ondansetron Odt 4 Mg Tablet) 4 mg PO Q6H PRN PRN PRN Reason: NAUSEA Oxycodone HCl (Oxycodone 5 Mg Tablet) 5 - 10 mg PO Q4H PRN PRN PRN Reason: Pain Score 4-10 Last Admin: 02/23/20 08:46 Dose: 10 mg Documented by: Scopolamine HBr (Scopolamine 1mg/72hr Patch) 1 patch TD Q3D [facility] Stop: 02/23/20 14:01 Last Admin: 02/22/20 13:46 Dose: 1 patch Documented by: Sodium Chloride (0.9% Saline Lock 10 Ml Syringe) 10 - 40 ml IV UD PRN PRN Reason: SALINE FLUSH Medical Necessity - Tobacco Use Smoking Status: Never smoker Assessment/Plan All Active Problems (Last Reviewed 02/18/20 @ 10:[address] Lupillo Cochran MD) Hyperlipidemia (Resolved) Obstructive sleep apnea (Resolved) Hypertension (Resolved) Type 2 diabetes mellitus without complications (Resolved) Chest pain (Resolved) Encounter for pre-operative cardiovascular clearance (Resolved) 1. Bilateral macromastia. 2. Neck pain. 3. Thoracic back pain. 4. Bilateral shoulder pain from shoulder grooving from the weight of the breasts on her bra straps. 5. Inframammary intertrigo. 6. Excessive weight loss. 7. History of gastric bypass surgery. 8. s/p bilateral breast reduction mammaplasty. Patient is resting comfortably. She is tolerating po analgesia. Breast incisions are dry and intact. Breasts are soft and symmetrical. No clinical evidence of hematoma. Nipples are viable. Prealbumin was 16.0. Encourage nutritional supplementation with protein to help the healing process. Discharge home today. Keep head elevated. Continue aide wrap compression and lifting restriction. Followup office tomorrow 02/24/20 for drain removal. Wrote script for Cefadroxil for 5 days. Wrote script for Percocet for pain (40 tabs).
--- NOTE | 2020-02-23 14:02 | DCINST_ITS ---
You will use the following diet at home:: No restrictions, Other - encourage nutritional supplementation with protein to help the healing process. Discharge Activity: May Not Shower - until the drains are removed., - - keep head elevated. no heavy lifting. May shower in (days): 1 - after the drain is removed in the office May resume sexual activity in: No Restrictions Weight Bearing Status: Weight bearing as tolerated Lifting Restrictions: 20 lbs. Keep extremity elevated above heart level: - - elevate head. Call your doctor if your incision/area has: Continuous Slow Oozing, Sudden Increased Bleeding, Increased Pain/ Swelling, Increased Redness, Foul Smelling Discharge, Swelling at the incision site Call your doctor if you observe: Fever of 101 or Higher, Coldness, Increased Pain, Shortness of breath, Chest pain, Calf discomfort, Uncontrolled pain Suture Line Care: - - dry dressings daily. Change Dressing in (Days):: 1 - dry dressings daily. Cleanse incision/area with: - - may get incisions wet in the shower after the drains are removed. Drain: Suction - farhat drain x2 to bulb suction. empty and record output daily. Allergies/Adverse Reactions: Allergies No Known Allergies Allergy (Verified 02/17/20 08:41) Medications to take at Discharge Levothyroxine [Synthroid] 88 mcg PO DAILY 06/17/13 allopurinol 300 mg tablet 300 mg PO QDAY 03/18/17 bupropion HCl 150 mg 24 hr tablet, extended release 150 mg PO QAM 09/24/19 Mv-Min/Iron/Folic/Calcium/Vitk [Women's Multivitamin Tablet] 1 ea PO DAILY 02/10/20 Cefadroxil [Duricef] 500 mg PO BID #10 cap 02/23/20 Oxycodone HCl/Acetaminophen [Percocet 5/325] 1 tablet PO Q4H PRN PRN 7 Days #40 tablet 02/23/20 The following prescriptions were given: Cefadroxil [Duricef] 500 mg PO BID #10 cap Transmission Status: Pending to [facility] Oxycodone HCl/Acetaminophen [Percocet 5/325] 1 tablet PO Q4H PRN PRN 7 Days #40 tablet PRN Reason: Pain Score 6-10 Transmission Status: Sent to [facility] Primary Care Physician: Florian Johns MD [Primary Care Provider] - Test Results: Test results from this visit will be discussed in further detail at your follow- up appointment, if applicable. Please Follow Up With: Lupillo Cochran MD When: saturday02/24/20. call [phone] for appt. Proposed Discharge Date: 02/23/20
[2020-02-23 15:00] VITALS: BP 102/66; PULSE 90; RESP 18; TEMP 37; O2SAT 97
[2020-02-23 15:20] VITALS: BP 102/66; PULSE 90; RESP 18; TEMP 37; O2SAT 97
== END 2020-02-23 15:10 | disposition home or self-care (01) ==
LOC: SDC 02-23 11:24 → MS3 02-23 11:24
PROVIDERS: Anesthesiology; Admitting Provider Surgery; PCP Family Medicine; Referring Provider Surgery; Visit Provider Surgery
PROC: 0H0U0ZZ Alteration of Left Breast, Open Approach (ICD-10-PCS; CPT 19318; principal; 2020-02-22 07:15)
DX: N62 Hypertrophy of breast (principal); M54.2 Cervicalgia; L30.4 Erythema intertrigo; R63.4 Abnormal weight loss; G89.29 Other chronic pain; E78.5 Hyperlipidemia, unspecified; E03.9 Hypothyroidism, unspecified; E11.9 Type 2 diabetes mellitus without complications; E66.9 Obesity, unspecified; F32.9 Major depressive disorder, single episode, unspecified; F41.9 Anxiety disorder, unspecified; I10 Essential (primary) hypertension; K21.9 Gastro-esophageal reflux disease without esophagitis; M10.9 Gout, unspecified; G47.33 Obstructive sleep apnea (adult) (pediatric); Z79.899 Other long term (current) drug therapy; Z98.84 Bariatric surgery status; Z20.828 Contact with and (suspected) exposure to other viral communicable diseases
CPT/HCPCS: 00402; 19318; 80048; 81025; 82962; 84134; 85027; 85610; 85730; 87426; 88305; 96365; 96366; 96372; 96375; 99218; 99251; C9803; J7120; G0378; G0379; G0463; J2405; Q9968

== ENCOUNTER → 2020-08-16 08:46 | Outpatient (CLI) | payer OTHER, SELFPAY ==
[2020-08-16 11:03] LABS: Anion Gap 3 (5-15); BUN 17 mg/dL (7-18); BUN/Creat Ratio 25.5 RATIO (10-20); Calcium,Total 8.7 mg/dL (8.5-10.1); Chloride 108 mmol/L (98-107); Cholesterol 186 mg/dL (200); Creatinine, Serum 0.67 mg/dL (0.55-1.02); EST Glomerular Filtration Rate 102 mL/min (>60); Est Glom Filt Rate - Afr Amer 124 mL/min (>60); Free T3 2.2 pg/mL (2.18-3.98); Glucose 91 mg/dL (74-106); High Density Lipoprotein 94 mg/dL; Potassium 3.8 mmol/L (3.5-5.1); Sodium Level 141 mmol/L (136-145); Thyroid Stim Hormone (TSH) 1.49 uIU/mL (0.358-3.74); Triglycerides 54 mg/dL; Very Low Density Lipoprotein 11 mg/dL (5-40)
== END ==
PROVIDERS: PCP Family Medicine; Referring Provider Family Medicine; Visit Provider Family Medicine
DX: Z00.00 Encounter for general adult medical examination without abnormal findings (principal); E03.9 Hypothyroidism, unspecified
CPT/HCPCS: 36415; 80048; 80061; 84443; 84481

== ENCOUNTER → 2020-12-21 | Outpatient (CLI) | payer OTHER, SELFPAY | END | disposition home or self-care (01) | LOC: LABSPEC 15:20 | PROVIDERS: PCP Family Medicine; Referring Provider Family Medicine; Visit Provider Family Medicine | DX: B34.9 Viral infection, unspecified (principal) | CPT/HCPCS: 87635; U0005; U0003 ==

== ENCOUNTER → 2021-02-02 16:26 | Outpatient (CLI) | payer OTHER, SELFPAY ==
[2021-02-02 18:34] LABS: Free T3 2.4 pg/mL (2.18-3.98); T4 Free Direct 1.06 ng/dL (0.76-1.46); Thyroid Stim Hormone (TSH) 1.16 uIU/mL (0.358-3.74)
== END ==
PROVIDERS: PCP Family Medicine; Referring Provider Family Medicine; Visit Provider Family Medicine
DX: E03.9 Hypothyroidism, unspecified (principal)
CPT/HCPCS: 36415; 84439; 84443; 84481

== ENCOUNTER → 2021-02-22 15:39 | Outpatient (CLI) | payer OTHER, SELFPAY ==
--- NOTE | 2021-02-22 15:41 | BI_ITS ---
MAMMOGRAPHY - BILATERAL SCREENING 3-D TOMOSYNTHESIS REASON FOR EXAM: Female, 45 years old. SCREENING PERTINENT HISTORY: No significant family history. TECHNIQUE: 2-D mammograms and 3-D Tomosynthesis of the breast (s) were performed. CAD was performed. COMPARISON: 09/30/2019 FINDINGS: The breast composition is composed of scattered fibroglandular density. Scattered benign calcifications are seen. No dense spiculated masses or suspicious microcalcifications are identified. No architectural distortion is identified. There is no skin thickening or retraction. There has been no significant change since the prior study. BI/SCRN MAMM (CAD)W/MARISOL BILAT IMPRESSION: No mammographic signs of malignancy. Routine yearly mammograms recommended. ASSESSMENT CATEGORY: BIRADS Category 2: Benign. A letter regarding these results will be sent to the patient by the facility within 30 days. FOLLOW UP RECOMMENDATION: Yearly follow up mammogram recommended. (A) Approximately 10% of breast cancers are not detected by mammography. A normal mammogram should not delay biopsy of a clinically suspicious abnormality. Electronically Signed: Dl Wakefield MD at 16:49 EST , Service support ,
== END ==
PROVIDERS: PCP Family Medicine; Visit Provider Family Medicine
DX: Z12.31 Encounter for screening mammogram for malignant neoplasm of breast (principal)
CPT/HCPCS: 77063; 77067

== ENCOUNTER 2021-05-17 18:01 | Outpatient (CLI) | payer OTHER, SELFPAY | END 2021-05-17 23:59 | disposition home or self-care (01) | PROVIDERS: PCP Family Medicine; Visit Provider Family Medicine | DX: Z20.822 Contact with and (suspected) exposure to COVID-19 (principal) | CPT/HCPCS: 87635; U0003; U0005 ==

== ENCOUNTER 2021-05-23 15:09 | Outpatient (CLI) | payer OTHER, SELFPAY ==
[2021-05-28 15:07] LABS: Testosterone, Free 0.07 ng/dL (0.10-0.85); Testosterone, Total 4 ng/dL (4-50)
[2021-05-28 15:35] LABS: Testosterone, % Free 1.71 % (0.50-2.80)
== END 2021-05-23 23:59 | disposition home or self-care (01) ==
LOC: LAB 15:11
PROVIDERS: PCP Family Medicine; Visit Provider Obstetrics & Gynecology
DX: L64.9 Androgenic alopecia, unspecified (principal); L68.0 Hirsutism; L65.9 Nonscarring hair loss, unspecified
CPT/HCPCS: 36415; 84402; 84403

== ENCOUNTER → 2021-08-04 | Outpatient (CLI) | payer OTHER, SELFPAY | END | disposition home or self-care (01) | PROVIDERS: PCP Family Medicine; Referring Provider Registered Nurse; Visit Provider Registered Nurse | DX: U07.1 COVID-19 (principal); J06.9 Acute upper respiratory infection, unspecified | CPT/HCPCS: 87633; 87635; U0003; U0005 ==

== ENCOUNTER → 2021-08-29 | Outpatient (CLI) | payer OTHER, SELFPAY ==
[2021-08-29 12:46] LABS: Free T3 2.6 pg/mL (2.18-3.98); T4 Free Direct 1.12 ng/dL (0.76-1.46); Thyroid Stim Hormone (TSH) 0.56 uIU/mL (0.358-3.74)
== END | disposition home or self-care (01) ==
LOC: MFPLAB 10:05
PROVIDERS: PCP Family Medicine; Visit Provider Family Medicine
DX: E03.9 Hypothyroidism, unspecified (principal)
CPT/HCPCS: 36415; 84439; 84443; 84481

== ENCOUNTER → 2022-02-07 | Outpatient (CLI) | payer OTHER, SELFPAY | END | disposition home or self-care (01) | LOC: MFPLAB 16:40 | PROVIDERS: PCP Family Medicine; Referring Provider Family Medicine; Visit Provider Family Medicine | DX: E03.9 Hypothyroidism, unspecified (principal) | CPT/HCPCS: 36415; 84443 ==

== ENCOUNTER → 2022-04-16 | Outpatient (CLI) | payer OTHER, SELFPAY ==
--- NOTE | 2022-04-16 16:48 | NEURO_ITS ---
NCS and/or EMG Patient Report Ordering Doctor: Florian Johns DATE OF SERVICE: 04/16/22 Indication: Approximately 6 months of tingling, numbness and pain intermittently affecting the right hand. Evaluate for median nerve entrapment. Findings: Nerve conduction studies were performed in the right upper extremity. The right median motor study recording the abductor pollicis brevis showed a normal amplitude, normal distal latency and normal conduction velocity. The right ulnar motor study recording the abductor digiti minimi showed a normal amplitude, normal distal latency and normal conduction velocity. No conduction block or focal slowing was present across the elbow. The right median sensory response recording digit two showed a normal amplitude, latency and conduction velocity. The right ulnar sensory response recording digit five showed a normal amplitude, latency and conduction velocity. The right radial sensory response recording over the extensor snuff box showed a normal amplitude, latency and conduction velocity. Right median-ulnar lumbrical / interosseous motor latencies showed a prolonged median latency compared to the ulnar. Needle EMG of the right upper extremity muscles was performed. No denervation was seen in any muscle. All motor unit morphology, activation and recruitment p atterns were normal. Impression: This is a borderline study. There is borderline electrophysiologic evidence of median neuropathy across the right wrist as it was only demonstrated on internal comparison studies. These findings may be compatible with the clinical diagnosis of carpal tunnel syndrome. Dao Dawson D.O. Multi Select Codes Neurology Neurology Interp Codes: 19701-03 Musc test done w/n test comp (interp) and 80766-53 Nrv cndj test 7-8 studies (interp)
== END | disposition home or self-care (01) ==
LOC: PSN 16:01
PROVIDERS: PCP Family Medicine; Visit Provider Family Medicine
DX: R20.2 Paresthesia of skin (principal); R03.0 Elevated blood-pressure reading, without diagnosis of hypertension
CPT/HCPCS: 95886; 95910

== ENCOUNTER → 2022-06-27 | Outpatient (CLI) | payer OTHER, SELFPAY ==
--- NOTE | 2022-06-27 16:12 | BI_ITS ---
MAMMOGRAPHY - BILATERAL SCREENING REASON FOR EXAM: Female, 47 years old. Routine annual screening examination. PERTINENT HISTORY: Non-contributory. History of prior bilateral breast reduction surgery. TECHNIQUE: Digital bilateral breast marisol (3D mammographic acquisition) in the CC and MLO projections. 2-D mediolateral oblique (MLO) and craniocaudad (CC) views of both breasts were obtained. CAD: Full Field Digital Mammography with Computer Added Detection was performed. COMPARISON: Comparison is made with prior study dated February 22, 2021 and September 30, 2019. FINDINGS: Breast Composition: The breasts are heterogeneously dense, which may obscure small masses. There are no dominant masses or suspicious calcifications. No other significant abnormalities are identified. There has been no significant change since the prior study. BI/SCRN MAMM (CAD)W/MARISOL BILAT IMPRESSION: Stable bilateral screening mammogram. Yearly follow-up mammogram recommended. (A) ASSESSMENT CATEGORY: BIRADS Category 1: Negative. A letter regarding these results will be sent to the patient by the facility within 30 days. Approximately 10% of breast cancers are not detected by mammography. A normal mammogram should not delay biopsy of a clinically suspicious abnormality. [id number] Electronically Signed: Bj Amaro MD at 8:31 EDT ,
== END | disposition home or self-care (01) ==
LOC: OPBI 16:10
PROVIDERS: PCP Family Medicine; Visit Provider Obstetrics & Gynecology
DX: Z12.31 Encounter for screening mammogram for malignant neoplasm of breast (principal)
CPT/HCPCS: 77063; 77067

== ENCOUNTER → 2022-08-06 | Outpatient (CLI) | payer OTHER, SELFPAY ==
[2022-08-06 18:05] LABS: Absolute Lymphocyte Count 1.04 X10^3/uL (0.83-4.51); Absolute Neutrophil Count 1.8 X10^3/uL (2.0-7.7); Basophil# 0.04 X10^3/uL; Basophil% 1.2 % (0-1); Eosinophil# 0.06 X10^3/uL; Eosinophils% 1.8 % (0-5); Hemoglobin 12.5 g/dL (12.0-15.0); Lymphocyte # 1.04 X10^3/ul (0.83-4.51); Lymphocyte % 31.5 % (19-41); Mean Corp Hgb Conc 32.1 g/dL (32-36); Mean Corpuscular Volume 96.8 fL (81-99); Mean Platelet Vol. 10.7 fl (6.2-12.0); Monocyte# 0.41 X10^3/uL; Monocyte% 12.4 % (0-10); NRBC Flagged by Analyzer 0 % (0-5); Neutrophil # 1.75 X10^3/uL (2.7-7.7); Neutrophil % 53.1 % (47-70); Platelet Count 265 K/mm3 (150-450); RBC Distribution Width CV 12.2 % (11.6-14.6); RBC Distribution Width SD 43.7 fl (35.1-43.9); Red Blood Count 4.03 M/mm3 (4.2-5.4); White Blood Count 3.3 K/mm3 (4.4-11.0)
[2022-08-06 18:32] LABS: Anion Gap 6 (5-15); BUN 14 mg/dL (7-18); BUN/Creat Ratio 23.1 RATIO (10-20); Chloride 106 mmol/L (98-107); EST Glomerular Filtration Rate 113 mL/min (>60); Est Glom Filt Rate - Afr Amer 137 mL/min (>60); Free T3 2.2 pg/mL (2.18-3.98); Glucose 89 mg/dL (74-106); Potassium 3.8 mmol/L (3.5-5.1); Sodium Level 141 mmol/L (136-145); T4 Free Direct 0.99 ng/dL (0.76-1.46); Thyroid Stim Hormone (TSH) 1.83 uIU/mL (0.358-3.74)
== END | disposition home or self-care (01) ==
LOC: MFPLAB 16:07
PROVIDERS: PCP Family Medicine; Visit Provider Family Medicine
DX: E03.9 Hypothyroidism, unspecified (principal); R53.83 Other fatigue
CPT/HCPCS: 36415; 80048; 84439; 84443; 84481; 85025

== ENCOUNTER → 2023-02-22 | Outpatient (CLI) | payer OTHER, SELFPAY ==
[2023-02-22 12:52] LABS: Anion Gap 4 (5-15); BUN 15 mg/dL (7-18); BUN/Creat Ratio 19.5 RATIO (10-20); Calcium,Total 8.8 mg/dL (8.5-10.1); Chloride 106 mmol/L (98-107); Cholesterol 210 mg/dL (200); Creatinine, Serum 0.77 mg/dL (0.55-1.02); EST Glomerular Filtration Rate 85 mL/min (>60); Est Glom Filt Rate - Afr Amer 103 mL/min (>60); Free T3 2.3 pg/mL (2.18-3.98); Glucose 92 mg/dL (74-106); High Density Lipoprotein 94 mg/dL; Potassium 3.6 mmol/L (3.5-5.1); Sodium Level 139 mmol/L (136-145); T4 Free Direct 0.92 ng/dL (0.76-1.46); Thyroid Stim Hormone (TSH) 1.32 uIU/mL (0.358-3.74); Triglycerides 75 mg/dL; Very Low Density Lipoprotein 15 mg/dL (5-40)
== END | disposition home or self-care (01) ==
LOC: LAB 11:06
PROVIDERS: PCP Family Medicine; Visit Provider Family Medicine
DX: Z00.00 Encounter for general adult medical examination without abnormal findings (principal); E03.9 Hypothyroidism, unspecified
CPT/HCPCS: 36415; 80048; 80061; 84439; 84443; 84481

== ENCOUNTER 2023-04-18 13:23 | Day surgery (SDC) | payer OTHER, SELFPAY ==
--- OUTSIDE RECORDS SUMMARY | 2023-04-18 13:41 | XMS RPT_ITS | CCD ---
Author Name Unknown Address [address] [place] [address] Organization [facility] Care Team Providers Care Store Team Member Name Role Phone SUNDAR GUARDADO MD Unavailable Unavailable UNASSIGNED, DOCTOR Unavailable Unavailable Luis E Lopez Chi Primary Care Provider [phone] Medications Completed/Discontinued Medications Medication Drug Class(es) Dates Sig (Normalized) Sig (Original) allopurinol 100 mg oral tablet (1 source) Xanthine Oxidase Inhibitor Start: 01-22-2006 ALLOPURINOL 100 MG TAB Take one(1) tablet daily. 0 01/22/2006 Active Problems Active Problems Problem Classification Problem Date Documented Date Episodic/Chronic Coronary atherosclerosis and other heart disease (1 source) Coronary atherosclerosis and other heart disease Onset: 06-11-2017 Diabetes mellitus without complication (1 source) Type 2 diabetes mellitus; Translations: [Type 2 diabetes mellitus without complications] Onset: 12-24-2012 12-24-2012 Chronic Diabetes mellitus without complication (1 source) Diabetes mellitus without complication Onset: 06-11-2017 Disorders of lipid metabolism (1 source) Hypercholesterolemia; Translations: [Pure hypercholesterolemia, unspecified] Onset: 12-24-2012 12-24-2012 Chronic Esophageal disorders (1 source) Esophageal disorders Onset: 06-11-2017 Essential hypertension (1 source) Hypertensive disorder; Translations: [Essential (primary) hypertension] Onset: 12-24-2012 12-24-2012 Chronic Essential hypertension (1 source) Essential hypertension Onset: 06-11-2017 Menstrual disorders (1 source) Irregular periods; Translations: [Irregular menstruation, unspecified] Onset: 12-24-2012 12-24-2012 Chronic Other nutritional; endocrine; and metabolic disorders (1 source) Metabolic syndrome X; Translations: [Metabolic syndrome] Onset: 12-24-2012 12-24-2012 Chronic Other screening for suspected conditions (not mental disorders or infectious disease) (1 source) Patient encounter status; Translations: [Encounter for screening mammogram for malignant neoplasm of breast] Episodic Thyroid disorders (1 source) Hypothyroidism; Translations: [Hypothyroidism, unspecified] Onset: 12-24-2012 12-24-2012 Chronic Unclassified (1 source) Hypothyroidism, unspecified / E03.9(ICD-10) Onset: 06-11-2017 Unclassified (2 sources) Morbid (severe) obesity due to excess calories / E66.01(ICD-10) Onset: 06-11-2017 Unclassified (1 source) Obstructive sleep apnea (adult) (pediatric) / G47.33(ICD-10) Onset: 06-11-2017 Unclassified (1 source) Primary generalized (osteo)arthritis / M15.0(ICD-10) Onset: 06-11-2017 Unclassified (1 source) Stress incontinence (female) (male) / N39.3(ICD-10) Onset: 06-11-2017 Unclassified (1 source) Family hx of ischem heart dis and oth dis of the circ sys / Z82.49(ICD-10) Onset: 06-11-2017 Unclassified (1 source) Body mass index (BMI) 40.0-44.9, adult / Z68.41(ICD-10) Onset: 06-11-2017 Past or Other Problems Problem Classification Problem Date Documented Date Episodic/Chronic Cancer of cervix (2 sources) High grade squamous intraepithelial lesion on cervical Papanicolaou smear; Translations: [High grade squamous intraepithelial lesion on cytologic smear of cervix (HGSIL)] Onset: 01-14-2013 01-14-2013 Episodic Unclassified (1 source) Morbid (severe) obesity due to excess calories; Translations: [Morbid (severe) obesity due to excess calories] Onset: 06-11-2017 Results Test Name Value Interpretation Reference Range Facil ity Vital Signs Date Time Vital Sign Value Performing Clinician Faci lity 06-18-2022 15:47-0400 Body height 172.7 cm Yasmin Duque MD Work Phone: [facility] 06-18-2022 15:47-0400 Body weight 82.37 kg Yasmin Duque MD Work Phone: [facility] 06-18-2022 15:47-0400 Diastolic blood pressure 74 mm[Hg] Yasmin Duque MD Work Phone: [facility] 06-18-2022 15:47-0400 Systolic blood pressure 120 mm[Hg] Yasmin Duque MD Work Phone: [facility] Encounters Encounter Date Encounter Type Care Provider Facility Start: 06-18-2022 End: 06-18-2022 Patient encounter procedure Yasmin Duque MD Work Phone: OB/Gynecology Plan of Treatment Date Care Activity Detail Author Start: 05-23-2026 HPV [address] TEST[address] [facility] Start: 05-23-2026 PAP TESTING PAP TESTING [facility] Start: 06-19-2023 BP CONTROLLED (<130/80) BP CONTROLLED (<130/80) [facility] Start: 04-01-2022 DEPRESSION ASSESSMENT DEPRESSION ASSESSMENT [facility] Start: 11-30-2021 Influenza vaccination INFLUENZA (#1) [facility] Start: 2021 COLOGUARD (FIT-DNA) COLOGUARD (FIT-DNA) [facility] Start: [address] [facility] Start: 2021 COLORECTAL CANCER SCREENING COLORECTAL CANCER SCREENING [facility] Start: [address] COL[address]APHY [facility] Start: 2021 FECAL OCCULT BLOOD FECAL OCCULT BLOOD [facility] Start: [address] [facility] Start: [address] [facility] Start: 1995 Urine microalbumin profile DTAP,TDAP,TD (1 - Tdap) [facility] Start: 1994 ANNUAL PCP TEAM CHRONIC DISEASE VISIT ANNUAL PCP TEAM CHRONIC DISEASE VISIT [facility] Start: 1994 Hepatitis B surface antibody level LDL CHOLESTEROL [facility] Start: 1994 HEPATITIS C SCREENING HEPATITIS C SCREENING [facility] Start: 1994 HIV SCREENING HIV SCREENING [facility] Start: 1986 3 comp foot exam completed DIABETIC FOOT EXAM [facility] Start: 1986 Hepatitis B screening URINE ALBUMIN:CREATININE RATIO [facility] Start: 1986 Hepatitis C antibody, confirmatory test DILATED RETINAL EXAM [facility] Start: 1982 PNEUMOCOCCAL (1 - PCV) PNEUMOCOCCAL (1 - PCV) [facility] Start: 1981 Hemoglobin A1c/Hemoglobin.total in Blood HBA1C [facility] Start: 1976 COVID-19 VACCINE (#1) COVID-19 VACCINE (#1) [facility] Start: 1976 HEPATITIS B (1 of 3 - 3-dose series) HEPATITIS B (1 of 3 - 3-dose series) [facility] End: 07-18-2023 RORY SCREENING RORY SCREENING Radiology Routine Encounter for screening mammogram for breast cancer 1 Occurrences starting 06/18/2022 until 07/18/2023 [facility] Work Phone: Payers Date Payer Category Payer Private Health Insurance [id number] 2022-Present [phone] [address] [place] [address] PPO [id number] Unknown [id number] Social History Date Type Detail Facility Start: 12-24-2012 Tobacco smoking stat [facility] Never smoked tobacco [facility] Start: 12-24-2012 Tobacco use and exposure Smokeless t obacco non-user [facility] Start: 06-18-2022 Alcohol intake Current drinke r of alcohol (finding) [facility] Start: 12-24-2012 Alcohol Comment [facility] Start: [facility] Sex Assigned At Female [facility] Instructions 06-18-2022 Patient Instructions Note Date & Type Note Facility 06-18-2022 Instructions Yasmin Duque MD - 06/18/2022 4:29 PM EDT Calcium and Vitamin D Supplementation (from the National Institutes of Health Office of Dietary Supplements 2011) Calcium is required by the body for blood vessel, muscle, hormone and nerve functioning. Most of the body's calcium is stored in the bones and teeth where it supports structure and function. Bone is continuously broken down and reformed. When bone breakdown exceeds formation, especially in postmenopausal women, bone loss can increase the risk of osteoporosis and fractures. In addition to low calcium intake, women who smoke, have a family history of osteoporosis, are thin, or , or who take certain medications such as cancer chemotherapy, seizure mediations and steroids are at increased risk of osteoporosis. The calcium requirements in women change with age. The National Institutes of Health (NIH) recommends: 1000mg elemental calcium for premenopausal women age 19-50 1200mg elemental calcium for postmenopausal women and all women over 50 Milk, yogurt, and cheese are rich natural sources of calcium and are the major food contributors in the [place]. For example, 8oz of milk (whole, lowfat or skim) contains about 300mg calcium, 8oz of yogurt contains 415mg. Nondairy sources include salmon and sardines and vegetables, such as Peruvian cabbage, kale, and broccoli. Foods fortified with calcium include many fruit juices, tofu and cereals. For more food calcium content information, visit http://ods.od.nih.gov/factsheets/calcium. Calcium supplements come in several different forms. Remember that the recommendations are for millgrams (mg) of elemental calcium which may be less than the total weight of the supplement. The amount of elemental calcium is required to be printed on the label. Calcium carbonate is the least expensive form. It must be taken on a full stomach to be properly absorbed. Some patients may experience gas or constipation. Calcium phosphate and calcium citrate may be taken either with or without food and tend to have less side effects but are generally more expensive. Because of its ability to neutralize stomach acid, calcium carbonate is found in some [id number] antacid products, such as Tums and Rolaids . Depending on its strength, each chewable pill or softchew provides 200 to 400 mg of elemental calcium. The percentage of calcium absorbed depends on the total amount of elemental calcium consumed at one time. Absorption is highest in doses <500mg. So a woman who takes 1,000mg/day of calcium from supplements should split the dose and take 500mg at two separate times during the day. Too much calcium can cause kidney stones, constipation, difficulty absorbing other nutrients and calcium buildup in blood vessels. Women under 50 should not exceed 2500mg/day (2000mg/day for women over 50) of calcium from food and supplements. Excessive alcohol and caffeine intake can inhibit absorption of calcium. Calcium can reduce the absorption of some medications if taken at the same time of day (bisphosphonates, thyroid medication, Phenytoin and other seizure medications, some antibiotics and iron supplements). Vitamin D promotes calcium absorption in the gut and maintains adequate blood levels of calcium and phosphate for normal bone growth and bone remodeling. Vitamin D also helps regulate cell growth as well as nerve, muscle and immune system function. Vitamin D is produced in the skin as a result of ultraviolet sunlight rays and must be altered in the liver and kidney to become its active form. Recommended intake according to the National Institutes of Health is 600 International Units (IU) for girls and women ages 1-70 and 800 IU for women over 70. Very few foods in nature contain vitamin D. The flesh of fatty fish (such as salmon, tuna, and mackerel) and fish liver oils are among the best sources. Small amounts of vitamin D are found in beef liver, cheese, mushrooms and egg yolks. Most people meet at least some of their vitamin D needs through exposure to sunlight. Season, time of day, length of day, cloud cover, smog, skin melanin content, and sunscreen are among the factors that affect UV radiation exposure and vitamin D synthesis. Despite the importance of the sun for vitamin D synthesis, it is prudent to limit exposure of skin to sunlight and avoid tanning beds. UV radiation is a carcinogen responsible for most of the estimated 1.5 million skin cancers that occur annually in the [place]. Lifetime cumulative UV damage to skin is also responsible for some age-associated dryness and other cosmetic changes. In supplements and fortified foods, vitamin D is available in two forms, D2 (ergocalciferol) and D3 (cholecalciferol). The two are equivalent at normal supplement doses. For women who require high supplement doses because of vitamin D deficiency, D3 may work better to raise blood levels. Some medications can prevent proper absorption of Vitamin D. These include laxatives, corticosteroids like prednisone, the seizure drugs phenobarbital and phenytoin, the weight-loss drug orlistat ( Xenical and AlliTM) and the cholesterol-lowering drug cholestyramine (Questran , LoCholest , and Prevalite ). Talk to your doctor about adjusting your recommended daily vitamin D dosage if you take these medications. You should not exceed 4000 mg of vitamin D supplementation daily unless specifically prescribed by your doctor. documented in this encounter [facility] History of Present illness Narrative 06-18-2022 Yasmin Duque MD - 06/18/2022 3:39 PM EDT Note Date & Type Note Facility 06-18-2022 History of Presen t illness Narrative Pit Clerk offered: Patient declines. Nicolasa is a 47 year old who presents for an annual gynecologic exam without complaints. Hair loss stable since last year. Planning trip to [place]. Daughter getting this year. Menses: no menses - Mirena IUD. 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 PAST MEDICAL HISTORY Diagnosis Date Diabetes (HCC) Dysmetabolic syndrome Gout Hypercholesteremia Hypertension Hypothyroidism PAST SURGICAL HISTORY Procedure Laterality Date MIRENA 03/23/2013 OFFICE LEEP 02/13/2013 Negative PAST SURGICAL HISTORY OF 05/2017 gastric bi pass- [facility] REDUCTION OF LARGE BREAST Bilateral 2020 VAGINOSCOPY 01/14/2013 GILES 3 VAGINOSCOPY 01/06/2014 FAMILY HISTORY Problem Relation Age of Onset Heart Mother SOCIAL HISTORY Social History Tobacco Use Smoking status: Never Smokeless tobacco: Never Vaping Use Vaping Use: Never used Substance Use Topics Alcohol use: Yes Comment: occasional Drug use: No REVIEW OF SYSTEMS Abdomen: No abdominal pain, nausea, vomiting, diarrhea, or constipation. No bloating, early satiety, indigestion, or increased flatulence. Bladder: No dysuria, gross hematuria, urinary frequency, urinary urgency, or incontinence. Breast: No breast lumps, nipple d/c, overlying skin changes, redness or skin retraction. Allergies and current medication updated:Yes EXAM: BP 120/74 Ht 5' 8 (1.73m) Wt 181 lb 9.6 oz (82.4kg) LMP 07/27/2014 BMI 27.62 kg/(m^2). GENERAL: pleasant, female in no apparent distress HEENT: Normocephalic, atraumatic, mucus membranes moist, and no lesions NECK: Supple, full range of motion, no adenopathy, and thyroid normal DERMATOLOGY: Normal, without lesions, non-icteric, and non-hirsute BREAST: soft, non-tender, symmetric, no dominant mass, normal nipple-areolar complex, no lymphadenopathy, and no nipple discharge- well healed augmentation scars. ABDOMEN: soft, non-tender, and no masses PELVIC: external genitalia normal, normal Bartholin's glands, urethra, Moyers's glands, no vulvar lesions, no cervical lesions, good vaginal support, physiologic discharge present, normal appearing perineal body and perianal region, IUD strings present BIMANUAL: uterus normal size, shape and consistency, no adnexal masses, and non-tender RECTOVAGINAL: deferred. NEURO: alert and oriented x3,exam grossly non-focal EXTREMITIES: normal ASSESSMENT/PLAN: 1) Health maintenance: Pap/HPV up to date. Mammogram ordered [facility] Nutrition, exercise and routine health maintenance exams reviewed. Calcium/vit d information provided. 2) Contraception: IUD. Contraceptive options reviewed and information provided. 3) STD screening: Declined STD check. 4) Follow up one year or sooner as needed Yasmin East MD documented in this encounter [facility] Progress note 05-23-2021 Note Date & Type Note Facility 05-23-2021 Note HNO ID: [id number] Author: Yasmin Duque MD Service: ? Author Type: Physician Type: Progress Notes Filed: 05/23/2021 2:19 PM Note Text: Nicolasa is a 46 year old who presents for an annual gynecologic exam without complaints. Has lost over 100lb s/p gastric bypass. Working for [employer] and [employer]. Increased hair loss and has to get electrolysis for facial hair Menses: no menses - Mirena IUD. Contraception: IUD HPV vaccine: No Last Pap: 02/21/2015 normal HPV: 02/14/2015 negative History of abnormal pap: Yes LEEP 2012 Last mammogram: 2020normal [facility] Sexually active: Yes History of STDS: HPV Patient concerns for STD exposure: No. 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 PAST MEDICAL HISTORY Diagnosis Date - Diabetes (HCC) - Dysmetabolic syndrome - Gout - Hypercholesteremia - Hypertension - Hypothyroidism PAST SURGICAL HISTORY Procedure Laterality Date - MIRENA 03/23/2013 - OFFICE LEEP 02/13/2013 Negative - PAST SURGICAL HISTORY OF 05/2017 gastric bi pass- [facility] - REDUCTION OF LARGE BREAST Bilateral 2020 - VAGINOSCOPY 01/14/2013 GILES 3 - VAGINOSCOPY 01/06/2014 FAMILY HISTORY Problem Relation Age of Onset - Heart Mother SOCIAL HISTORY Social History Tobacco Use - Smoking status: Never Smoker - Smokeless tobacco: Never Used Substance Use Topics - Alcohol use: Yes Comment: occasional - Drug use: No REVIEW OF SYSTEMS Abdomen: No abdominal pain, nausea, vomiting, diarrhea, or constipation. No bloating, early satiety, indigestion, or increased flatulence. Bladder: No dysuria, gross hematuria, urinary frequency, urinary urgency, or incontinence. Breast: No breast lumps, nipple d/c, overlying skin changes, redness or skin retraction. Allergies and current medication updated:Yes EXAM: BP 118/64 Ht 5' 7.323 (1.71m) Wt 170 lb (77.1kg) LMP 07/27/2014 BMI 26.37 kg/(m2). GENERAL: pleasant, female in no apparent distress HEENT: Normocephalic, atraumatic, mucus membranes moist and no lesions NECK: Supple, full range of motion, no adenopathy and thyroid normal DERMATOLOGY: Normal, without lesions, non-icteric- male pattern baldness, BREAST: soft, non-tender, symmetric, no dominant mass, normal nipple-areolar complex, no lymphadenopathy and no nipple discharge ABDOMEN: soft, non-tender and no masses PELVIC: external genitalia normal, normal Bartholin's glands, urethra, Moyers's glands, no vulvar lesions, no cervical lesions, good vaginal support, physiologic discharge present, normal appearing perineal body and perianal region BIMANUAL: uterus normal size, shape and consistency, no adnexal masses and non-tender RECTOVAGINAL: deferred. NEURO: alert and oriented x3,exam grossly non-focal EXTREMITIES: normal ASSESSMENT/PLAN: 1) Health maintenance: Pap done with HPV. Mammogram up to date . Colonoscopy- declined- Cologaurd ordered Nutrition, exercise and routine health maintenance exams reviewed. Calcium/Vitamin D supplementation information provided. 2) Contraception: IUD. Contraceptive options reviewed and information provided. 3) STD screening: Declined STD check. 4) Follow up one year or sooner as needed 5) recommend Testosterone- ordered [facility] Yasmin East MD [facility] Clinical Note 05-23-2021 Note Date & Type Note Facility 05-23-2021 Note ADDITIONAL PROCEDURES PRESENT Specimen originated from [facility] Specimen #: [id number] Submitting Physician: YASMIN EAST MD SPECIMEN SUBMITTED A: CERVICAL, SCREENING, FLUID FINAL DIAGNOSIS A. CERVICAL, SCREENING, FLUID Satisfactory for interpretation. Negative for intraepithelial lesion or malignancy. Acute inflammation. This specimen has been analyzed by the ThinPrep Imaging System, an automated imaging and review system, which assists the laboratory in evaluating cells on ThinPrep Pap tests. Following automated imaging, selected metcalf from every slide are reviewed by a lab courier. LUIS A Mays(ASCP) (Electronic Signature) ADDITIONAL PROCEDURE(S) HUMAN PAPILLOMA VIRUS Date Ordered: 05/24/2021 Date Reported: 05/26/2021 Procedure Results and Interpretation Negative for HPV DNA high risk type 16 by PCR. Negative for HPV DNA high risk type 18 by PCR. Negative for HPV DNA high risk types: 31,33,35,39,45,51,52,56,58,59,66,68 by PCR. This test was developed and its performance characteristics determined by [facility]'s [facility] [place] ([facility]). It has not been cleared or approved by the FDA. -[facility] is regulated under CLIA as qualified to perform high-complexity testing. This test is used for clinical purposes. It should not be regarded as investigational or for research. CLINICAL DATA ROUTINE EXAM, HPV Testing: Yes, automatic HPV patients over 30 Date of Last Menstrual Period: IUD STAINS A: CERVICAL, SCREENING, FLUID THIN PREP SAP BPC ARCHITECT Aileen Frey M.D., Consultant In Ergonomics And Safety Date of Report: 05/29/2021 Date of Procedure: 05/23/2021 Date of Receipt: 05/24/2021 Submitted by: YASMIN EAST MD Location: [facility] Diagnostic interpretation performed at [facility], [address] [place] [address]. CLIA Number: [id number] The Pap Smear is a screening test for cervical cancer. False negative results occur with all screening tests, emphasizing the need for rescreening at recommended intervals, and clinical correlation. [facility] Progress note 05-23-2021 Note Date & Type Note Facility 05-23-2021 Note HNO ID: [id number] Author: Brianne Morel Ma Service: ? Author Type: ? Type: Progress Notes Filed: 05/23/2021 2:19 PM Note Text: Pit Clerk offered: Patient declines. [facility] Evaluation note Note Date & Type Note Facility documented in this encounter [facility] Reason for referral (narrative) Diagnostic Procedure Only (Routine) - Pending Review Note Date & Type Note Facility Referral ID Status Reason Start Date Expiration Date Visits Requested Visits Authorized [id number] Pending Review Auto-Generat ed Referral 06/18/2022 07/18/[address] [facility] Summary Purpose Family History No Family History Records FoundNo Family History Records Found Advance Directives No Advanced Directives Records FoundNo Advanced Directives Records Found Additional Source Comments INFORMATION SOURCE (unrecogn ized section and content) DATE CREATED AUTHOR AUTHOR'S ORGANIZ ATION 06/23/2021 [facility] Source Comments (unrecognize d section and content) In the event this informatio n is protected by the Federal Confidentiality of Alcohol and Drug Abuse Patient Records regulations: The Federal rules restrict any use of the information to criminally investigate or prosecute any alcohol or drug abuse patient.[facility] Reason for Visit (unrecogniz ed section and content) Care Teams (unrecognized sec tion and content) FOR RECORDS PERTAINING TO PATIENTS WHO ARE OR HAVE BEEN ENROLLED IN A CHEMICAL DEPENDENCY/SUBSTANCEABUSE PROGRAM, SOME INFORMATION MAY BE OMITTED. This clinical summary was aggregated from multiple sources. Caution should be exercised in using it in the provision of clinical care. This summary normalizes information from multiple sources, and as a consequence, information in this document may materially change the coding, format and clinical context of patient data. In addition, data may be omitted in some cases. CLINICAL DECISIONS SHOULD BE BASED ON THE PRIMARY CLINICAL RECORDS. [facility] [employer] [facility]. provides no warranty or guarantee of the accuracy or completeness of information in this document.
[2023-04-18 13:55] VITALS: BP 130/85; PULSE 58; RESP 16; TEMP 36.1; O2SAT 99; BMI 27.3
[2023-04-18 14:12] LABS: Internal QC Validated? YES +Cl - CLEAR BKGD; Pregnancy, Urine Negative Negative; Record Kit Lot#,Urine Preg 718086
[2023-04-18] MEDS: Lactated Ringers 1,000 ML 15 ML IV (14:15)
--- NOTE | 2023-04-18 15:00 | GANG_PTH ---
PATHOLOGY RESULTS PATIENT: OSVALDO [place]CCLURE [place] [facility] [id number] AGE/SX: 48/F ROOM: RE04/18/[address]: Dr. Neo Youssef DO : 1975 BED: DIS: 04/18/2023 SPEC #: [id number] RECD: 04/19/23 07:34 STATUS: STEVENSON REMendoza #: [id number] CORRINA: 04/18/23 15:[address]: Neo Youssef DEPT: SURGICAL PATHOLOGY RECD BY: Mariluz Sweeney ENTERED: 04/19/23 10:07 SP TYPE: GANGLION OTHR DR: Dr. Florian Johns MD Tissues: GANGLION CYST Procedures: Surgery Specimen Level III HEADER OPERATION: Right wrist ganglion cyst removal PRE-OP DIAGNOSIS: Right wrist ganglion cyst TISSUE SUBMITTED: Right wrist ganglion cyst MICROSCOPIC DIAGNOSIS Soft tissue of right cyst, excision: Consistent with ganglion cyst. AM:kary 04/22/2023 MICROSCOPIC DESCRIPTION Slides are reviewed. GROSS DESCRIPTION Received in fixative is one container labeled with the patient's name and designated right wrist ganglion cyst. The specimen consists of two pieces of orozco soft tissue measuring in aggregate 1.0 x 0.5 x 0.3 cm. The entire specimen is submitted in one cassette. / SJ:rg 04/19/2023 TC:5 CPT: 01485
[2023-04-18] MEDS: Cefazolin 2 GM in 0.9% Normal Saline (100mL Bag) 100 ML IV (16:10)
[2023-04-18 16:53] VITALS: BP 116/71; BP 130/85; PULSE 60; RESP 16; TEMP 36.2; O2SAT 100
[2023-04-18 17:00] VITALS: BP 116/84; BP 130/85; PULSE 57; RESP 16; O2SAT 100
[2023-04-18 17:05] VITALS: BP 118/79; BP 130/85; PULSE 58; RESP 16; O2SAT 96
[2023-04-18 17:10] VITALS: BP 125/73; BP 130/85; PULSE 59; RESP 16; TEMP 36.5; O2SAT 100
[2023-04-18] MEDS: HYDROcodone Bitartrate/Apap 5/325 Tablet PO ×2 (17:31→17:55)
[2023-04-18 18:02] VITALS: BP 130/85
== END 2023-04-18 18:08 | disposition home or self-care (01) ==
LOC: SDC 13:26 → AC 13:26
PROVIDERS: Anesthesiology; PCP Family Medicine; Referring Provider Orthopaedic Surgery; Visit Provider Orthopaedic Surgery
PROC: (CPT 25111; principal; 2023-04-18 14:50)
DX: M67.431 Ganglion, right wrist (principal); I10 Essential (primary) hypertension; E66.3 Overweight; Z68.27 Body mass index [BMI] 27.0-27.9, adult; Z71.3 Dietary counseling and surveillance; Z86.16 Personal history of COVID-19
CPT/HCPCS: 25111; 01810; 81025; 88304; J7120; J2405

== ENCOUNTER → 2023-09-13 | Outpatient (CLI) | payer OTHER, SELFPAY ==
--- NOTE | 2023-09-13 15:14 | BI_ITS ---
MAMMOGRAPHY - BILATERAL SCREENING REASON FOR EXAM: Female, 48 years old. Routine annual screening examination. PERTINENT HISTORY: Non-contributory. History of prior bilateral breast reduction surgery. TECHNIQUE: Digital bilateral breast marisol (3D mammographic acquisition) in the CC and MLO projections. 2-D mediolateral oblique (MLO) and craniocaudad (CC) views of both breasts were obtained. CAD: Full Field Digital Mammography with Computer Added Detection was performed. COMPARISON: Comparison is made with prior study dated June 27, 2022 and February 22, 2021. FINDINGS: Breast Composition: There are scattered areas of fibroglandular density. There are no dominant masses or suspicious calcifications. No other significant abnormalities are identified. There has been no significant change since the prior study. BI/SCRN MAMM (CAD)W/MARISOL BILAT IMPRESSION: Stable bilateral screening mammogram. Yearly follow-up mammogram recommended. (A) ASSESSMENT CATEGORY: BIRADS Category 1: Negative. A letter regarding these results will be sent to the patient by the facility within 30 days. Approximately 10% of breast cancers are not detected by mammography. A normal mammogram should not delay biopsy of a clinically suspicious abnormality. [id number] Electronically Signed: Bj Amaro MD at 8:44 EDT ,
== END | disposition home or self-care (01) ==
LOC: OPBI 15:13
PROVIDERS: PCP Family Medicine; Referring Provider Family Medicine; Visit Provider Family Medicine
DX: Z12.31 Encounter for screening mammogram for malignant neoplasm of breast (principal)
CPT/HCPCS: 77063; 77067

== ENCOUNTER → 2023-09-20 | Outpatient (CLI) | payer OTHER, SELFPAY ==
[2023-09-20 11:13] LABS: ALB/GLOB Ratio 1.2 RATIO (0.9-2.4); AST(SGOT) 21 U/L (15-37); Alanine Aminotransfer ALT/SGPT 27 U/L (13-56); Albumin, Serum 3.8 g/dL (3.2-5.0); Alkaline Phosphatase 51 U/L (45-117); Anion Gap 8 (5-15); BUN 15 mg/dL (7-18); BUN/Creat Ratio 17.1 RATIO (10-20); Chloride 105 mmol/L (98-107); Cholesterol 200 mg/dL (200); Creatinine, Serum 0.88 mg/dL (0.55-1.02); EST Glomerular Filtration Rate 73 mL/min (>60); Est Glom Filt Rate - Afr Amer 89 mL/min (>60); Free T3 2.5 pg/mL (2.18-3.98); Globulin 3.1 g/dL (2.2-4.2); Glucose 92 mg/dL (74-106); High Density Lipoprotein 91 mg/dL; Potassium 3.6 mmol/L (3.5-5.1); Protein, Total 6.9 g/dL (6.4-8.2); Sodium Level 138 mmol/L (136-145); T4 Free Direct 1.03 ng/dL (0.76-1.46); Thyroid Stim Hormone (TSH) 1.47 uIU/mL (0.358-3.74); Triglycerides 51 mg/dL; Very Low Density Lipoprotein 10 mg/dL (5-40)
[2023-09-26 12:09] LABS: Testosterone, % Free 2.84 % (0.50-2.80); Testosterone, Free 0.57 ng/dL (0.10-0.85); Testosterone, Total 20 ng/dL (4-50)
== END | disposition home or self-care (01) ==
LOC: MTLAB 07:35
PROVIDERS: PCP Family Medicine; Referring Provider Family Medicine; Visit Provider Family Medicine
DX: E03.9 Hypothyroidism, unspecified (principal); R53.83 Other fatigue; I10 Essential (primary) hypertension; L65.9 Nonscarring hair loss, unspecified; L68.0 Hirsutism
CPT/HCPCS: 36415; 80053; 80061; 82627; 84402; 84403; 84439; 84443; 84481; 82626

== ENCOUNTER 2024-07-03 06:49 | Day surgery (SDC) | payer OTHER, SELFPAY ==
--- NOTE | 2024-06-10 11:14 | PAT.ANESEVAL ---
Pre-Assessment Diagnosis/Proposed Procedure Planned Operative Procedure(s): LAP SALPINGECTOMY BILAT,REMOVAL MIRENA IUD INSERTION OF LILETTA IUD Anesthesia History Anesthesia History - crm coordinator: Anesthesia History - crm coordinator Hx Hospitalization No 06/10/24 08:11 Any Problems With Anesthesia No 06/10/24 08:11 Cholinesterase deficiency No 06/10/24 08:11 You/Your Family Experience No 06/10/24 08:11 fever (hyperthermia) with Relationship Recent Exposure to Contagious No 04/18/23 13:55 Disease Does patient have nerve No 06/10/24 08:11 stimulator Patient instructed to have device shut off --Does patient have Pacemaker or ICD? When Was Last Pacemaker Check QUESTION #4 FULL TEXT: You/Your Family Experience fever (hyperthermia) with Anesthesia Last Oral Intake Last Oral intake: Last Oral Intake NPO since Meds taken in AM with sips of water? Meds patient instructed to take am of surgery PONV PONV - crm coordinator: PONV - crm coordinator Female Yes 06/10/24 08:11 HX of Motion Sickness Yes 06/10/24 08:11 HX of N/V After Surgery No 06/10/24 08:11 Non-Smoker Yes 06/10/24 08:11 Duration of Surgery greater No 06/10/24 08:11 than 60 minutes Number of Risk Factors 3 06/10/24 08:11 PONV Score Moderate Risk 06/10/24 08:11 Height & Weight Height & Weight: Anesthesia: Height & Weight Height 5 ft 8 in 04/18/23 13:55 Respiratory Assessment Respiratory Assessment - crm coordinator: Respiratory Tract Infection Hx - crm coordinator Hx Respiratory Tract Infection No 06/10/24 08:11 STOP Sleep Apnea STOP Sleep Apnea - crm coordinator: STOP Sleep Apnea - crm coordinator Hx Hypertension Yes: NO MEDS SINCE 201706/10/24 08:11 Hx Sleep Apnea No 06/10/24 08:11 CPAP No: BEFORE WEIGHT LOSS 04/18/23 16:53 BIPAP No 04/08/23 13:20 Do you snore loudly (louder No 06/10/24 08:11 than talking or can be heard Do you often feel tired/ No 06/10/24 08:11 fatigued/ sleepy during daytime? Has anyone observed you stop No 06/10/24 08:11 breathing during sleep? STOP Results Negative 06/10/24 08:11 QUESTION #5 FULL TEXT : Do you snore loudly (louder than talking or can be heard through closed doors)? 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 Specify any problems Hx of Preganancy in last 3 No 06/10/24 08:11 Months Nurse Filling Out Transfusion DSCHRIBER 06/10/24 08:11 & Questions: Date: 06/10/24 06/10/24 08:11 Time: 08:13 06/10/24 08:11 Patient unable to answer at this time (ie. confused, unrespo /Reproduction History /Reproductive History - crm coordinator: /Reproductive Hx- crm coordinator Hx Now No 06/10/24 08:11 Gestational Age (in weeks): EDC: Hx Hx Para Hx Section [facility] No 06/10/24 [facility] (Updated 06/10/24 @ 08:17 by Shari Ferreira) Alcohol use Migraine headache Leg cramps History of echocardiogram History of stress test Cardiology follow-up encounter Wears glasses Nonhealing surgical wound Excessive weight loss Intertrigo Shoulder pain Chronic thoracic back pain Chronic neck pain Macromastia Anxiety and depression Hyperlipidemia Gout Obstructive sleep apnea Obesity Hypertension Type 2 diabetes mellitus without complications Home Medications ?Medication ?Instructions ?Recorded ?Last Taken ?Type levothyroxine 88 mcg tablet 88 mcg PO DAILY thyroid 06/17/13 04/17/23 History allopurinol 100 mg tablet 100 mg PO DAILY 06/10/24 Unknown History bupropion HCl 300 mg 24 hr tablet, 300 mg PO DAILY 06/10/24 Unknown History extended release gabapentin 300 mg capsule 300 mg PO QHS 06/10/24 Unknown History meloxicam 15 mg tablet 15 mg PO DAILY 06/10/24 Unknown History Allergy/AdvReac Type Severity Reaction Status Date / Time No Known Allergies Allergy Verified 06/10/24 08:09 Family History Mother CAD (coronary artery disease) [place] age 47 Hypertension Brother Hypertension Diabetes Other Arthritis Surgical History (Updated 06/10/24 @ 08:17 by Shari Ferreira) Hx of hand surgery History of bilateral breast reduction surgery History of gastric bypass History of carpal tunnel release Social History (Updated 04/30/20 @ 22:17 by Martha Mitchell [employer], [employer]) Smoking Status: Never smoker alcohol intake: current alcohol intake frequency: holidays/special occasions only substance use type: does not use additional social history: DOES NOT TAKE IBUPROFEN DOES TAKE ASPIRIN NEEDED Audit: Pertinent Findings Pertinent Findings EKG Perinent findings: 12/26/2016. Normal sinus rhythm with nonspecific anterior ST and T wave changes. Stress test pertinent findings: 04/11/2017. Normal. EF 70%. Stress test was for preparation for bariatric surgery. Echo (EF%) pertinent findings: 04/03/2017. EF 65% PA pressure 27. Echo was for preparation for bariatric surgery. Recommendation Anesthesia Recommendation Anesthesia recommendation: OPTIMIZED for anesthesia
--- NOTE | 2024-07-02 13:31 | HP.PCM.OB_ITS ---
History and Physical Date of Admission: 07/03/24 Expand All Collapse All Pre-Op History and Physical HPI: The patient is a 49 year old female presenting for pre-operative visit. She is scheduled for laparoscopic bilateral salpingectomy and IUD removal/insertion of liletta , for Desires sterilization and Menstrual control- heavy menses/dysmenorrhea on 07/03/24. Procedure discussed along with risks, benefits and complications. Other alternatives discussed for management. Consent form signed? Yes. PAST MEDICAL HISTORY PAST MEDICAL HISTORY Diagnosis Date ? Diabetes (HCC) ? Dysmetabolic syndrome ? Gout ? Hypercholesteremia ? Hypertension ? Hypothyroidism PAST SURGICAL HISTORY PAST SURGICAL HISTORY Procedure Laterality Date ? ASPIRATION&/INJECTION GANGLION CYST ANY LOCATJ Right 04/2023 removal cyst ? MIRENA 03/23/2013 ? OFFICE LEEP 02/13/2013 Negative ? PAST SURGICAL HISTORY OF 05/2017 [facility] ? REDUCTION OF LARGE BREAST Bilateral 2019 ? VAGINOSCOPY 01/14/2013 GILES 3 ? VAGINOSCOPY 01/06/2014 CURRENT MEDICATIONS Current Outpatient Medications Medication Sig Dispense Refill ? buPROPion SR (ZYBAN SR; WELLBUTRIN SR) 150 mg 12 hr tablet Take 1 tablet by mouth once daily. ? levonorgestrel (MIRENA) 21 mcg/24 hours (8 yrs) 52 mg IUD 1 Each by INTRAUTERINE route one time only. ? SYNTHROID 88 MCG TAB Take one(1) tablet daily. 0 ? ALLOPURINOL 100 MG TAB Take one(1) tablet daily. 0 No current facility-administered medications for this visit. ALLERGIES: Patient has no known allergies. PERSONAL HISTORY: SOCIAL HISTORY Social History Tobacco Use ? Smoking status: Never ? Smokeless tobacco: Never Vaping Use ? Vaping status: Never Used Substance Use Topics ? Alcohol use: Yes Comment: occasional ? Drug use: No FAMILY HISTORY: FAMILY HISTORY FAMILY HISTORY Problem Relation Age of Onset ? Heart Mother REVIEW OF SYMPTOMS: negative except as noted above PHYSICAL EXAMINATION: VITALS: Blood pressure 134/72, height 170.2 cm (5' 7), weight 89.8 kg (198 lb), last menstrual period 07/27/2014. GENERAL: The patient is well nourished, well hydrated in no acute distress. , The patient is oriented to time, place, and person. NECK: Full range of motion LUNGS: Clear to auscultation bilaterally. no wheezes, rhonchi or rales HEART: Regular rate and rhythm, Normal heart sounds, and No murmurs or gallops IMPRESSION: 49yo desires sterilization and IUD - Liletta for menstrual regulation - h/o AUB and dysmenorrhea PLAN: Laparoscopic Bilateral salpingectomy and IUD removal and reinsertion with Liletta Pt has been counseled on risks/benefits and alternatives of surgery including but not limited to anesthesia, bleeding, infection, injury to pelvic structures including bowel, bladder, ureters and vessels. Pt wishes to proceed with surgery at this time. Pre and post op instructions reviewed I have reviewed and updated past medical and surgical history, medications and allergies Yasmin Duque MD Office Visit on 06/09/2024 Note shared with patient
[2024-07-03] VITALS (14 sets, daily range): BP systolic 117–136; BP diastolic 74–99; PULSE 63–88; RESP 14–18; TEMP 36.1–36.8; O2SAT 95–100; BMI 30.8
[2024-07-03 07:24] LABS: Internal QC Validated? YES +Cl - CLEAR BKGD; Pregnancy, Urine Negative Negative; Record Kit Lot#,Urine Preg 899023
[2024-07-03] MEDS: 0.9% Normal Saline (1000mL) 1,000 ML 15 ML IV (07:27)
[2024-07-03 07:40] LABS: Hematocrit 33.4 % (37-47); Mean Corp Hgb Conc 32.9 g/dL (32-36); Mean Corpuscular Hgb 29.3 pg (27.0-32.0); Mean Corpuscular Volume 88.8 fL (81-99); Mean Platelet Vol. 10.1 fl (6.2-12.0); Platelet Count 246 K/mm3 (150-450); RBC Distribution Width CV 13.4 % (11.6-14.6); RBC Distribution Width SD 43.8 fl (35.1-43.9); Red Blood Count 3.76 M/mm3 (4.2-5.4); White Blood Count 3.9 K/mm3 (4.4-11.0)
--- NOTE | 2024-07-03 07:47 | PRE.ANES_ITS ---
ASA Classification* ASA Classification ASA Classification: 2 Assessment & Plan Anesthesia* Anesthesia Assessment Anesthesia Assessment: Discussed sedation and/or anesthesia options, risks, benefits, and alternatives with patient/parents/legal guardian/POA. Questions invited. The patient/parents/legal guardian/POA seems to understand and agrees to proceed with anesthesia plan. Reviewed the physical assessment, medical history, allergy history and patient home medications list prior to surgery/procedure/anesthetic and documented any changes. Performed airway and anesthesia risk assessments. Anesthesia Type Anesthesia Type: General History Source History Obtained from:: Patient and Chart Anesthesia Focused Assessment* Temperature: 98.0 F Pulse Rate: 78 Blood Pressure: 136/76 Respiratory Rate: 16 Pulse Ox: 97 Oxygen Delivery Method: Room Air Airway Assessment Mouth opens: >3 cm Mallampati Score: II Teeth Condition: Intact Neck Range of motion (ROM): Full ROM Focused Labs Anesthesia Preop lab: CBC WBC 3.9 K/mm3 (4.4-11.0) L 07/03/24 07:20 07/03/24 RBC 3.76 M/mm3 (4.2-5.4) L 07/03/24 07:20 07/03/24 Hgb 11.0 g/dL (12.0-15.0) L 07/03/24 07:20 5 Hct 33.4 % (37-47) L 07/03/24 07:20 07/03/24 Plt Count 246 K/mm3 (150-450) 07/03/24 07:20 07/03/24 CHEMISTRY Potassium 3.6 mmol/L (3.5-5.1) 09/20/23 07:38 09/20/23 Sodium 138 mmol/L (136-145) 09/20/23 07:38 09/20/23 BUN 15 mg/dL (7-18) 09/20/23 07:38 09/20/23 Creatinine 0.88 mg/dL (0.55-1.02) 09/20/23 07:38 09/20/23 Glucose 92 mg/dL (74-106) 09/20/23 07:38 09/20/23 POC Glucose 85 mg/dL (70-110) 02/23/20 11:22 02/23/20 TSH 1.47 uIU/mL (0.358-3.74) 09/20/23 07:38 COAG PT 12.7 SECONDS (11.7-14.9) 02/22/20 07:13 Urine Test Negative Negative 07/03/24 07:00 07/03/24 Pre-Assessment Diagnosis/Proposed Procedure Planned Operative Procedure(s): LAP SALPINGECTOMY BILAT,REMOVAL MIRENA IUD INSERTION OF LILETTA IUD Anesthesia History 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 When Was Last Pacemaker Check QUESTION #4 FULL TEXT: You/Your Family Experience fever (hyperthermia) with Anesthesia Last Oral Intake Last Oral intake: Last Oral Intake NPO since 00:00 07/03/24 07:11 Meds taken in AM with sips of No 07/03/24 07:11 water? Meds patient instructed to take am of surgery PONV PONV - pipe insulator helper: PONV - pipe insulator helper Female Yes 06/10/24 08:11 HX of Motion Sickness Yes 06/10/24 08:11 HX of N/V After Surgery No 06/10/24 08:11 Non-Smoker Yes 06/10/24 08:11 Duration of Surgery greater No 06/10/24 08:11 than 60 minutes Number of Risk Factors 3 06/10/24 08:11 PONV Score Moderate Risk 06/10/24 08:11 Height & Weight Height & Weight: Anesthesia: Height & Weight Height 5 ft 7 in 07/03/24 07:11 Weight: 89.358 kg 07/03/24 07:11 Body Mass Index (BMI) 30.8 07/03/24 07:11 Respiratory Assessment Respiratory Assessment - pipe insulator helper: Respiratory Tract Infection Hx - pipe insulator helper Hx Respiratory Tract Infection No 06/10/24 08:11 STOP Sleep Apnea STOP Sleep Apnea - pipe insulator helper: STOP Sleep Apnea - pipe insulator helper Hx Hypertension Yes: NO MEDS SINCE 201706/10/24 08:11 Hx Sleep Apnea No 06/10/24 08:11 CPAP No: BEFORE WEIGHT LOSS 04/18/23 16:53 BIPAP No 04/08/23 13:20 Do you snore loudly (louder No 06/10/24 08:11 than talking or can be heard Do you often feel tired/ No 06/10/24 08:11 fatigued/ sleepy during daytime? Has anyone observed you stop No 06/10/24 08:11 breathing during sleep? STOP Results Negative 06/10/24 08:11 QUESTION #5 FULL TEXT : Do you snore loudly (louder than talking or can be heard through closed doors)? 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 Specify any problems Hx of Preganancy in last 3 No 06/10/24 08:11 Months Nurse Filling Out Transfusion DSCHRIBER 06/10/24 08:11 & Questions: Date: 06/10/24 06/10/24 08:11 Time: 08:13 06/10/24 08:11 Patient unable to answer at this time (ie. confused, unrespo /Reproduction History /Reproductive History - pipe insulator helper: /Reproductive Hx- pipe insulator helper Hx Now No 06/10/24 08:11 Gestational Age (in weeks): EDC: Hx Hx Para Hx Section SAB No 06/10/24 08:11 Active Medications Active Medications: Current Medications Generic Name Dose Route Start Last Admin Trade Name Freq PRN Reason Stop Dose Admin Sodium Chloride 1,000 mls @ 15 mls/hr 07/03/24 06:55 07/03/24 07:27 IV 07/08/24 20:14 15 mls/hr .Q48H DAVE Administration Levonorgestrel 1 each 07/03/24 08:15 Levonorgestrel Iud (Liletta) INTRA-UTER 07/03/24 08:16 X1 ONE PFSH Medical History Alcohol use Migraine headache Leg cramps History of echocardiogram History of stress test Cardiology follow-up encounter Wears glasses Nonhealing surgical wound Excessive weight loss Intertrigo Shoulder pain Chronic thoracic back pain Chronic neck pain Macromastia Anxiety and depression Hyperlipidemia Gout Obstructive sleep apnea Obesity Hypertension Type 2 diabetes mellitus without complications Home Medications ?Medication ?Instructions ?Recorded ?Last Taken ?Type levothyroxine 88 mcg tablet 88 mcg PO DAILY thyroid 07/02/24 History allopurinol 100 mg tablet 100 mg PO DAILY 06/10/2406/23 History bupropion HCl 300 mg 24 hr tablet, 300 mg PO DAILY 03/2507/02/24 History extended release gabapentin 300 mg capsule 300 mg PO QHS 06/10/2407/02 History meloxicam 15 mg tablet 15 mg PO DAILY 06/10/2406/23 History Allergy/AdvReac Type Severity Reaction Status Date / Time No Known Allergies Allergy Verified 07/03/24 07:07 Family History Mother CAD (coronary artery disease) [place] age 47 Hypertension Brother Hypertension Diabetes Other Arthritis Surgical History Hx of hand surgery History of bilateral breast reduction surgery History of gastric bypass History of carpal tunnel release Social History Smoking Status: Never smoker alcohol intake: current alcohol intake frequency: holidays/special occasions only substance use type: does not use additional social history: DOES NOT TAKE IBUPROFEN DOES TAKE ASPIRIN NEEDED Review of Systems (Anesthesia) ROS Narrative System reviewed and no additional complaints, except as documented.
--- NOTE | 2024-07-03 08:15 | FALS_PTH ---
PATIENT: OSVALDO MCCLURE [place] [facility] [place] U[place][id number] AGE/SX: 49/F ROOM: RE07/03/[address]: Dr. Yasmin Crouch, MDDOB: 1975 BED: DIS: 07/03/2024 SPEC #: [id number] RECD: 07/03/24 13:03 STATUS: STEVENSON DANILO #: [id number] CORRINA: 07/03/24 08:[address]: Yasmin Crouch DEPT: SURGICAL PATHOLOGY RECD BY: Amari Lopez ENTERED: 07/03/24 13:03 SP TYPE: FALL TUBES OTHR DR: Dr. Florian Johns MD Tissues: A - Fallopian tube Procedures: Surgery Specimen Level IV HEADER OPERATION: Laparoscopic, salpingectomy, lysis of adhesions PRE-OP DIAGNOSIS: Desires sterilization TISSUE SUBMITTED: A- Bilateral fallopian tubes MICROSCOPIC DIAGNOSIS A. Bilateral fallopian tubes, sterilization, salpingectomy: - Detached benign serous cyst consistent with serous cystadenoma. - Complete luminal cross-section confirmed, x1. MICROSCOPIC DESCRIPTION Slides are reviewed. GROSS DESCRIPTION A. Received in formalin in a container labeled with the patient's name, date of , and bilateral fallopian tubes are 2 unoriented and fimbriated fallopian tube segments, each measuring 6.0 cm in length by 0.7 cm in diameter. The serosa of each is pink-brooks, smooth, and glistening. Serial sections of each reveal a pinpoint lumen. Received in the same container is a 1.0 x 1.0 x 0.8 cm thin-walled cystic structure. The cyst is opened to reveal thin, yellow-tinged fluid with a smooth and glistening inner lining. [employer] Equipment sections are submitted as follows:A1. First fallopian tube and fimbriated end with cystic structureA2. Second fallopian tube with fimbriated end [facility] 07-03-2024 CPT:10764
--- NOTE | 2024-07-03 08:23 | PCM.DC ---
Discharge Instructions Diet Discharge Diet: No restrictions DC O2, CPAP, BIPAP needs Home O2 Discharge instructions: No Dressing / Incision May resume sexual activity in: 1 week Lifting Restrictions: 20-25 lbs Dressing / Incision Call your doctor if your incision/area has: Continuous Slow Oozing, Sudden Increased Bleeding, Increased Pain/ Swelling, Increased Redness, Foul Smelling Discharge and Swelling at the incision site Call your doctor if you observe: Fever of 101 or Higher, Inability to urinate, Inability to have a bowel movement, Using more than 1 pad per hour and Uncontrolled pain Additional Dressing/Incision Instructions:: You have skin glue over your incision sites, do not pick off. You may shower and let the soap and water run over the incision sites and dab dry. Follow Up Care Please Follow Up With: Yasmin Crouch MD When: 1-2 weeks post OP if you need an appointment please call [phone] Test Results: Test results from this visit will be discussed in further detail at your follow-up appointment, if applicable. Discharge Plan Admission Attending Provider: Yasmin Crouch Primary Care Provider: Florian Johns Instructions Print Language: Romanian Discharge Orders/Prescriptions Prescriptions: No Action levothyroxine 88 MCG tablet 88 mcg PO DAILY allopurinol 100 mg tablet 100 mg PO DAILY bupropion HCl 300 mg tablet extended release 24 hr 300 mg PO DAILY meloxicam 15 mg tablet 15 mg PO DAILY gabapentin 300 mg capsule 300 mg PO QHS Referrals / Follow Up: Florian Johns MD [Primary Care Provider] - Disposition Disposition (needs filled in before D/C Order can be placed): Home, Self Care
[2024-07-03 08:29] LABS: Anion Gap 12 (5-15); BUN 21 mg/dL (4-19); BUN/Creat Ratio 31.6 RATIO (10-20); Calcium,Total 9.2 mg/dL (7.6-11.0); Carbon Dioxide 22.5 mmol/L (21.0-32.0); Chloride 108 mmol/L (98-108); Creatinine, Serum 0.66 mg/dL (0.70-1.20); EST Glomerular Filtration Rate 108 (>60); Estimated Creatinine Clearance 119.64 ml/min (50-250); Glucose 94 mg/dL (70-99); Potassium 3.9 mmol/L (3.3-5.1); Sodium Level 142 mmol/L (133-145)
[2024-07-03] MEDS: Bupivacaine 0.25% 30 ML Vial (09:00)
[2024-07-03] MEDS: Levonorgestrel IUD (Liletta) 1 EACH INTRA-UTER (09:06)
--- NOTE | 2024-07-03 09:13 | PCM.OPRPT ---
Operative Report (Standard) Operative Information Date of Procedure: 07/03/24 Pre-Operative Diagnosis: desires sterilization, dysmenorrhea, heavy menses Post-Operative Diagnosis: same, Omental adhesions Surgery/Procedure Performed: IUD removal, IUD- liletta insertion, laparoscopic bilateral salpingectomy, Lysis of adhesions crusher wet ground mica: No Type of Anesthesia: General and Local RN Documented Start/Stop Times: Operation Date: 07/03/24 08:15 Case Time Into Pre-Op 07/03/24 06:50 Out of Pre-Op 07/03/24 08:22 Procedure Start Time: 08:38 Procedure Stop Time: 09:12 Select all DRAINS/GRAFTS/IMPLANTS that apply: None Special Medications: Liletta IUD Estimated Blood Loss: 10 Fluids Replaced: 1100 Specimen collected: Yes Description of specimen(s) removed: bilateral fallopian tubes Description of surgery: After informed consent was obtained patient was taken to the operating room she was placed in supine position she was given anesthesia. She was then placed in the [facility] and she was prepped and draped in normal sterile fashion. Bladder was drained prior to the start of procedure. At this time attention was turned to the vaginal portion where weighted speculum placed at posterior fornix vagina single-tooth tenaculum was used to gently grasp the internal the cervix. uterus was gently sounded to approximately 7cm. Mirena IUD strings were visualized and the Mirena IUD was removed intact without complication. Uterine manipulator was placed without difficulty. Legs then placed in parallel with the abdomen the tenaculum and the weighted speculum were removed. 2 towel clamps were placed at level of umbilicus. Marcaine was injected infraumbilical and a small incision was made. The 5 mm trocar was placed under direct visualization. CO2 gas was used to insufflate the intra-abdominal cavity. Upon inspection significant omental adhesions to the anterior abdominal wall were appreciated which were obscuring our view and had to be taken down prior to placement of the right lower quadrant port. At this time the left lower quadrant port was placed-Marcaine was injected small incision was made and the trocar was placed under direct visualization. The Enseal was then used to coagulate and ligate along the clear space close to the anterior abdominal wall making sure it was free of any vital structures the omentum was then dropped down allowing better visualization. Once the adhesions were freed and hemostasis was appreciated the right lower quadrant was placed in the same manner as the left lower quadrant. At this time then tubes were traced back to the fimbriated ends. Enseal was used to coagulate and ligate along mesosalpynx bilaterally until tubes removed completely. Good hemostasis was appreciated. At this time procedure was deemed complete successful. The gas was desufflated on from the intra-abdominal cavity. The trochars were removed. Skin was closed using 4-0 Monocryl in a subcutaneous fashion. Dermabond glue was placed. Instrument lap and needle counts were correct ?2. The uterine manipulator was removed. The Liletta IUD was open the Liletta IUD was placed at the fundus of the uterus without complication. The strings were cut to 2 cm from the cervical os. The single-tooth tenaculum was removed from the anterior lip of the cervix some small bleeding was noted pressure was held. Vaginal sweep was performed it was negative. There were no complications anticipated normal postoperative course for this patient. Surgical Findings: Omental adhesions to the anterior abdominal wall. Complications Complications: No Admit VTE Documentation VTE Present on Admission: Yes VTE Mechan Device Prophylaxis: SCD's VTE Pharm Prophylaxis ordered?: No Reason prophylaxis not ordered: Treatment Not Indicated
--- NOTE | 2024-07-03 09:31 | PCM.POST.ANE ---
Anesthesia: Postop Eval I Current Vital Signs Temperature: 97 F Pulse Rate: 88 Blood Pressure: 135/99 Respiratory Rate: 18 Pulse Ox: 97 Oxygen Delivery Method: Room Air Assessment Airway patent: Yes Spontaneous unlabored respirations: Yes Mental status: Awake nausea: No Vomiting: No Anesthesia Complication: No Fluid Hydration Crystalloid volume administer (ml): 1,000 Total IV fluid infused: 1,000 Progress Note Anesthesia document: Postop Eval 1 completed: Yes
--- NOTE | 2024-07-03 10:50 | POSTOPAN2_ITS ---
Anesthesia Postop Eval I Sum Postop Eval Completion status Anesthesia document: Postop Eval 1 completed: Yes Anesthesia Postop Eval I Summary Anesthesia Postop Eval I Summary: Anesthesia Postop Eval I: Assessment Summary Airway patent Yes 07/03/24 09:33 [employer].[email or web address] Spontaneous unlabored Yes 07/03/24 09:33 [employer].[email or web address] respirations Mental status Awake 07/03/24 09:33 [employer].[email or web address] nausea No 07/03/24 09:33 PUBLIC [employer].[email or web address] Vomiting No 07/03/24 09:33 PUBLIC TR[employer]IT [employer].[email or web address] Anesthesia Postop Eval I: Fluid Summary Crystalloid volume administer 1,000 07/03/24 09:33 [employer]ANSIT [employer].[email or web address] (ml) Colloids volume administered ( ml) Blood Product volume administered (ml) Total IV fluid infused 1,000 07/03/24 09:33 [employer]IT [employer].[email or web address] Anesthesia Postop Eval I: Summary Notes Anesthesia Complication No 07/03/24 09:33 [employer]IT [employer].[email or web address] Anesthesia Complication Comment: Post-operative progress note Anesthesia: Postop Eval II Evaluation Mental status: Awake Pain Level: 2 nausea: No Vomiting: No
--- NOTE | 2024-07-03 10:50 | PCM.POSTANE2 ---
Anesthesia Postop Eval I Sum Postop Eval Completion status Anesthesia document: Postop Eval 1 completed: Yes Anesthesia Postop Eval I Summary Anesthesia Postop Eval I Summary: Anesthesia Postop Eval I: Assessment Summary Airway patent Yes 07/03/24 09:33 [employer].[email or web address] Spontaneous unlabored Yes 07/03/24 09:33 [employer].LMIL respirations Mental status Awake 07/03/24 09:33 [employer].LMIL nausea No 07/03/24 09:33 [employer].LMIL Vomiting No 07/03/24 09:33 [employer].LMIL Anesthesia Postop Eval I: Fluid Summary Crystalloid volume administer 1,000 07/03/24 09:33 [employer].LMIL (ml) Colloids volume administered ( ml) Blood Product volume administered (ml) Total IV fluid infused 1,000 07/03/24 09:33 [employer].LMIL Anesthesia Postop Eval I: Summary Notes Anesthesia Complication No 07/03/24 09:33 [employer].LMIL Anesthesia Complication Comment: Post-operative progress note Anesthesia: Postop Eval II Evaluation Mental status: Awake Pain Level: 2 nausea: No Vomiting: No
== END 2024-07-03 12:10 | disposition home or self-care (01) ==
LOC: SDC 06:49 → AC 06:50
PROVIDERS: Anesthesiology; PCP Family Medicine; Referring Provider Obstetrics & Gynecology; Visit Provider Obstetrics & Gynecology
PROC: (CPT 58661; principal; 2024-07-03 08:00)
DX: Z30.2 Encounter for sterilization (principal); D28.2 Benign neoplasm of uterine tubes and ligaments; Z30.433 Encounter for removal and reinsertion of intrauterine contraceptive device; N94.6 Dysmenorrhea, unspecified; K66.0 Peritoneal adhesions (postprocedural) (postinfection); E78.00 Pure hypercholesterolemia, unspecified; Z79.899 Other long term (current) drug therapy
CPT/HCPCS: 58301; 58661; 58300; 00840; 80048; 81025; 84443; 85027; 88302; 88305; J2405

== ENCOUNTER → 2024-07-27 | Outpatient (CLI) | payer OTHER, SELFPAY ==
--- NOTE | 2024-07-27 15:15 | RAD_ITS ---
PROCEDURE: CERV SPINE OBL/FLEX/EXT COMP 07/27/2024 REASON FOR EXAM: CHRONIC NECK PAIN AND LEFT SHOULDER TECHNIQUE: 8 views of the cervical spine FINDINGS: Vertebrae: No acute fracture. disc spaces: Normal disc height. Obliques: No neural foraminal stenosis. Alignment: Anatomic alignment. No subluxation on flexion extension views to suggest instability. soft tissues: Normal prevertebral soft tissues. Other: RAD/Cerv Spine Obl/Flex/Ext Comp IMPRESSION: NEGATIVE CERVICAL SPINE. Disclaimer: Reading Location: [id number]
== END | disposition home or self-care (01) ==
LOC: RAD 15:02
PROVIDERS: PCP Family Medicine; Referring Provider Anesthesiology Pain Medicine; Visit Provider Anesthesiology Pain Medicine
DX: M54.2 Cervicalgia (principal); M25.512 Pain in left shoulder; G89.29 Other chronic pain
CPT/HCPCS: 72052

== ENCOUNTER → 2024-09-22 | Outpatient (CLI) | payer OTHER, SELFPAY ==
--- NOTE | 2024-09-22 17:12 | BI_ITS ---
EXAM: SCRN MAMM (CAD)W/MARISOL BILAT DATE: 09/22/2024 CLINICAL HISTORY: F, Age 49 y/o , SCREEN TECHNIQUE: SCRN MAMM (CAD)W/MARISOL BILAT COMPARISON: Prior exam(s) were compared FINDINGS: TISSUE DENSITY: The breast tissue is composed of scattered areas of fibroglandular density. Bilateral Breast Mammographic Findings: No suspicious masses, calcifications or other abnormalities are identified. BI/SCRN MAMM (CAD)W/MARISOL BILAT IMPRESSION: No mammographic evidence of malignancy in either breast OVERALL FINAL ASSESSMENT BI-RADS 1: NEGATIVE. RECOMMEND ANNUAL MAMMOGRAPHIC SCREENING. RECOMMENDATION: Routine annual follow-up in 1 Year A letter with findings and recommendations will be mailed to the patient. Reading Location: [id number]
--- OUTSIDE RECORDS SUMMARY | 2024-09-23 07:30 | XMS RPT_ITS | CCD ---
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 Florian Johns Primary Care Provider Dr. Florian Johns Referring Provider Dr. Florian Johns Other Provider Dr. Stephen Dawson Attending Provider John, Luis E Chi Primary Care Provider Dr. Florian Johns Primary Care Provider Dr. Florian Johns Referring Provider Dr. Florian Johns Other Provider Dr. Stephen Dawson Attending Provider Dr. Dao Dawson Attending Provider John, Luis E Chi Primary Care Provider Andreas LOVE, Dr. Du Primary Care Provider Willa LOVE, Dr. Hoffman Attending [facility] er Dr. Yasmin Crouch MD Referring [facility] er YASMIN KEE Attending Unavail able JOHN, LUIS E [facility] Primary Care Unavailable YASMIN KEE Attending Unavail able JOHN, LUIS E [facility] Primary Care Unavailable JOHN, LUIS E [facility] Primary Care Unavailable YASMIN KEE Attending Unavail able YASMIN KEE Referring Unavail able Florian Johns Primary Care Unavailable Matthew Moyer Attending Unavailable Matthew Moyer Referring Unavailable Florian Johns Primary Care Unavailable Yasmin Crouch Attending Unavail able Yasmin Crouch Referring Unavail able Florian Johns Primary Care Unavailable Yasmin Crouch Attending Unavail able Yasmin Crouch Referring Unavail able Medications Current Medications Medication Drug Class(es) Dates Sig (Normalized) Sig (Original) allopurinol 100 mg oral tablet (20 sources) Xanthine Oxidase Inhibitor Start: 03-18-2017 End: 06-10-2024 take 1 tablet by mouth once daily Allopurinol 300 mg tablet Discontinued 300 mg PO daily March 18, 2017 1:00am June 10, 2024 8:10am Start: 01-22-2006 End: 03-18-2017 take 1 tablet by mouth once daily Allopurinol 100 mg tablet Active 100 mg PO DAILY June 10, 2024 12:00am Comment on above: Take one(1) tablet d aily. 24 hr buPROPion hydrochloride 300 mg extended release oral tablet (17 sources) Aminoketone Start: take 1 tablet by mouth once daily Bupropion Hcl 300 mg tablet extended release 24 hr Active 300 mg PO DAILY June 10, 2024 12:00am Start: 05-21-2022 take 1 tablet by alexander th once daily buPROPion SR (ZYBAN SR; WELLBUTRIN SR) 150 mg 12 hr tablet Take 1 tablet by mouth once daily. 05/21/2022 Active Start: 09-24-2019 End: 06-10-2024 take 1 tablet by mouth once daily in the morning Bupropion Hcl 150 mg tablet extended release 24 hr Discontinued 150 mg PO EVERY MORNING September 24, 2019 12:00am June 10, 2024 8:09am Comment on above: Take 1 tablet by alexander th once daily. gabapentin 300 mg oral capsule (19 sources) Anti-epileptic Agent Start: 06-10-2024 take 1 capsule by mouth at bedtime Gabapentin 300 mg capsule Active 300 mg PO AT BEDTIME June 10, 2024 12:00am Start: 03-17-2020 End: 04-08-2023 take 1 capsule by mouth twice daily Gabapentin 100 mg capsule Discontinued 100 mg PO TWICE A DAY 60 30 April 15, 2020 2:38pm April 08, 2023 2:19pm levonorgestrel 0.305865 mg/hr intrauterine system (7 sources) Progestin, Progestin-containing Intrauterine Device levonorgestrel (MIRENA) 21 mcg/24 hours (8 yrs) 52 mg IUD 1 Each by INTRAUTERINE route one time only. Active Comment on above: 1 Each by INTRAUTERI NE route one time only. levothyroxine sodium 0.088 mg oral tablet (16 sources) l-Thyroxine Start: 2005 SYNTHROID 88 MCG TAB Take one(1) tablet daily. 0 01/22/2006 Active Comment on above: Take one(1) tablet d aily. meloxicam 15 mg oral tablet (1 source) Nonsteroidal Anti-inflammatory Drug Start: 2024 take 1 tablet by mouth once daily Meloxicam 15 mg tablet Active 15 mg PO DAILY June 10, 2024 12:00am Rs-Nx-Dkst-Fa-Ca Carb-Vit K (8 sources) Start: 2019 Qt-Co-Sszx-Fa-Ca Carb-Vit K Active 1 EACH PO DAILY February 10, 2020 2:09pm Start: 02-10-2020 Da-At-Pbaz-Fa- Ca Carb-Vit K Active 1 EACH PO DAILY February 10, 2020 1:00am Start: 02-10-2020 Ls-Wm-Jznp-Fa- Ca Carb-Vit K Active 1 EACH PO DAILY February 10, 2020 12:00am Completed/Discontinued Medications Medication Drug Class(es) Dates Sig (Normalized) Sig (Original) acetaminophen 325 mg / oxyCODONE hydrochloride 5 mg oral tablet (20 sources) Opioid Agonist Start: 04-20-2020 End: 04-08-2023 Oxycodone-Acetamino phen (Percocet) 5-325 mg tablet Discontinued 1 {tbl} PO TWICE A DAY as needed for pain (scale score 7-10) April 20, 2020 April 08, 2023 2:19pm Start: 03-30-2020 End: 04-13-2020 Oxycodone-Acetaminophen (Per cocet) 5-325 mg tablet Discontinued 1 {tbl} PO TWICE A DAY as needed for pain (scale score 7-10) March 30, 2020 April 13, 2020 4:42pm Start: 03-17-2020 End: 03-24-2020 Oxycodone-Acetaminophen (Per cocet) 5-325 mg tablet Discontinued 1 {tbl} PO THREE TIMES A DAY as needed for pain (scale score 7-10) 21 March 17, 2020 March 23, 2020 1:00am March 24, 2020 1:02am Start: 03-02-2020 End: 03-09-2020 Oxycodone-Acetaminophen (Per cocet) 5-325 mg tablet Discontinued 1 {tbl} PO 4 TIMES DAILY as needed for pain (scale score 7-10) 28 March 02, 2020 March 08, 2020 1:00am March 09, 2020 1:02am Start: 02-23-2020 End: 03-01-2020 Oxycodone-Acetaminophen 1 TA BLET tablet Discontinued 1 {tbl} PO EVERY 4 HOURS NEEDED as needed for Pain Score 6-10 40 February 23, 2020 February 29, 2020 1:00am March 01, 2020 1:02am 40 tabs (forty) Start: 02-23-2020 End: 03-01-2020 take 1 tablet by mouth every four hours as needed Oxycodone-Acetaminophen Discontinued 1 TABLET PO EVERY 4 HOURS NEEDED 40 February 23, 2020 March 01, 2020 12:02am 40 tabs (forty) Start: 06-18-2013 End: 03-18-2017 Oxycodone-Acetaminophen 1 TA BLET tablet Discontinued 1 - 2 {tbl} PO EVERY 4 HOURS NEEDED as needed for Pain 60 June 18, 2013 12:00am March 18, 2017 7:22pm Start: 06-18-2013 End: 03-18-2017 take 1 tablet by mouth every four hours as needed Oxycodone-Acetaminophen Discontinued 1 - 2 TABLET PO EVERY 4 HOURS NEEDED 60 June 17, 2013 11:00pm March 18, 2017 6:22pm ascorbic acid 500 mg oral tablet (9 sources) Vitamin C Start: 03-19-2017 End: 09-24-2019 take 1 tablet by mouth once daily Ascorbic Acid (Vitamin C) (Vitamin C With Kaylee Hips) 500 mg tablet Discontinued 500 mg PO daily March 19, 2017 1:00am September 24, 2019 4:15pm aspirin 81 mg delayed release oral tablet (9 sources) Platelet Aggregation Inhibitor, Nonsteroidal Anti-inflammatory Drug Start: 03-19-2017 End: 09-24-2019 Aspirin (Adult Low Dose Aspirin) 81 mg tablet,delayed release (DR/EC) Discontinued 81 mg PO daily March 19, 2017 1:00am September 24, 2019 4:18pm atorvastatin 80 mg oral tablet (10 sources) HMG-CoA Reductase Inhibitor Start: 03-18-2017 End: 09-24-2019 take 1 tablet by mouth once daily Atorvastatin 80 mg tablet Discontinued 80 mg PO daily March 18, 2017 1:00am September 24, 2019 4:15pm End: 06-18-2022 take 1 tablet by mouth once daily atorvastatin (LIPITOR) 10 mg tablet Take 10 mg by mouth once daily. 0 06/18/2022 Discontinued Comment on above: Take 10 mg by mouth once daily. cefadroxil 500 mg oral capsule (9 sources) Cephalosporin Antibacterial Start: End: take 1 capsule by mouth twice daily Cefadroxil 500 MG capsule Discontinued 500 mg PO TWICE A DAY February 23, 2020 1:00am March 09, 2020 2:36pm cholecalciferol 0.05 mg oral capsule (9 sources) Vitamin D Start: End: take 1 capsule by mouth once Cholecalciferol (Vitamin D3) 2,000 unit capsule Discontinued 2000 U PO ONCE March 19, 2017 1:00am September 24, 2019 4:15pm 24 hr desvenlafaxine 100 mg extended release oral tablet (10 sources) Serotonin and Norepinephrine Reuptake Inhibitor Start: 014 End: take 1 tablet by mouth once daily Desvenlafaxine Succinate 100 MG tablet Discontinued 100 mg PO DAILY June 17, 2013 12:00am March 18, 2017 7:22pm End: 06-18-2022 take 1 tablet by mouth once daily, then take 1 tablet by mouth every twenty-four hours desvenlafaxine ER (PRISTIQ) 100 mg 24 hr tablet Take 100 mg by mouth once daily. 0 06/18/2022 Discontinued Comment on above: Take 100 mg by mouth once daily. diazePAM 5 mg oral tablet (9 sources) Benzodiazepine Start: End: take 1 tablet by mouth at bedtime as needed for anxiety Diazepam (Valium) 5 mg tablet Discontinued 5 mg PO AT BEDTIME as needed for anxiety February 17, 2020 1:00am February 23, 2020 2:58pm 5 tabs (five) docusate sodium 100 mg oral capsule (9 sources) Start: End: take 1 capsule by mouth twice daily as needed for constipation Docusate Sodium 100 MG capsule Discontinued 100 mg PO TWICE DAILY NEEDED as needed for Constipation June 18, 2013 12:00am March 18, 2017 7:23pm DULoxetine 30 mg delayed release oral capsule (9 sources) Serotonin and Norepinephrine Reuptake Inhibitor Start: End: take 1 capsule by mouth once daily Duloxetine (Cymbalta) 30 mg capsule,delayed release(DR/EC) Discontinued 30 mg PO daily March 18, 2017 1:00am September 24, 2019 4:16pm empagliflozin 25 mg oral tablet (9 sources) Sodium-Glucose Cotransporter 2 Inhibitor Start: End: take 1 tablet by mouth once daily in the morning Empagliflozin (Jardiance) 25 mg tablet Discontinued 25 mg PO EVERY MORNING March 18, 2017 1:00am September 24, 2019 4:16pm fenofibric acid 135 mg delayed release oral capsule (9 sources) Peroxisome Proliferator Receptor alpha Agonist Start: End: take 1 capsule by mouth once daily Fenofibric Acid (Choline) 135 MG capsule,delayed release(DR/EC) Discontinued 135 mg PO DAILY June 17, 2013 12:00am March 18, 2017 7:22pm metFORMIN hydrochloride 1000 mg oral tablet (10 sources) Biguanide Start: End: Metformin 1,000 MG tablet Discontinued 1000 mg PO June 17, 2013 12:00am March 18, 2017 7:22pm End: 06-18-2022 take 2 tablets by mouth twice daily at mealtime metFORMIN (GLUCOPHAGE) 500 mg tablet Take 1,000 mg by mouth twice daily with meals. 0 06/18/2022 Discontinued Comment on above: Take 1,000 mg by alexander th twice daily with meals. metFORMIN hydrochloride 1000 mg / SITagliptin 50 mg oral tablet (9 sources) Biguanide, Dipeptidyl Peptidase 4 Inhibitor Start: End: Sitagliptin Phos-Metformin (Janumet) 50-1,000 mg tablet Discontinued 1 {tbl} PO TWICE A DAY March 18, 2017 1:00am September 24, 2019 4:16pm Pu-Xj-Ygeo-Fa-Ca Carb-Vit K 1 EACH tablet (1 source) Start: End: take 1 tablet by mouth once daily Ei-Qe-Tvhj-Fa-Ca Carb-Vit K 1 EACH tablet Discontinued 1 NMA PO DAILY February 10, 2020 1:00am June 10, 2024 8:10am omeprazole 20 mg delayed release oral capsule (9 sources) Proton Pump Inhibitor Start: End: take 1 capsule by mouth once daily Omeprazole Magnesium 20 mg capsule,delayed release(DR/EC) Discontinued 20 mg PO daily March 18, 2017 1:00am September 24, 2019 4:16pm potassium gluconate 2.5 meq oral tablet (9 sources) Start: End: take 1 tablet by mouth once daily Potassium Gluconate 595 mg (99 mg) tablet Discontinued 595 mg PO daily March 19, 2017 1:00am September 24, 2019 4:16pm promethazine hydrochloride 25 mg oral tablet (9 sources) Phenothiazine Start: End: take 1 tablet by mouth every four hours as needed for nausea Promethazine 25 MG tablet Discontinued 25 mg PO EVERY 4 HOURS NEEDED as needed for Nausea June 18, 2013 12:00am March 18, 2017 7:22pm rosuvastatin calcium 5 mg oral tablet (9 sources) HMG-CoA Reductase Inhibitor Start: End: take 1 tablet by mouth every other day Rosuvastatin 5 MG tablet Discontinued 5 mg PO EVERY OTHER DAY June 17, 2013 12:00am March 18, 2017 7:21pm spironolactone 25 mg oral tablet (10 sources) Aldosterone Antagonist Start: End: take 1 tablet by mouth twice daily Spironolactone 25 MG tablet Discontinued 25 mg PO TWICE A DAY June 17, 2013 12:00am March 18, 2017 7:22pm Comment on above: Take 25 mg by mouth twice daily. valsartan 320 mg oral tablet (10 sources) Angiotensin 2 Receptor Timur Start: 014 End: 023 take 1 tablet by mouth once daily Valsartan 320 MG tablet Discontinued 320 mg PO DAILY June 17, 2013 12:00am September 24, 2019 4:16pm Comment on above: Take 320 mg by mouth once daily. vitamin b12 1 mg oral tablet (9 sources) Vitamin B12 Start: 017 End: 020 take 1 tablet by mouth once daily Cyanocobalamin (Vitamin B-12) (Vitamin B-12) 1,000 mcg tablet Discontinued 1000 ug PO daily March 19, 2017 1:00am September 24, 2019 4:16pm Problems Active Problems Problem Classification Problem Date Documented Da te Episodic/Chronic Complications of surgical procedures or medical care (9 sources) Non-healing surgical wound; Translations: [Other complications of procedures, not elsewhere classified, initial encounter] 04-15-2020 Episodic Comment on above: right breast at [place] Contraceptive and procreative management (3 sources) Patient encounter status; Translations: [Encounter for other general counseling and advice on contraception] Onset: 5 04-21-2024 Episodic Coronary atherosclerosis and other heart disease (1 source) Coronary atherosclerosis and other heart disease Onset: 8 Diabetes mellitus without complication (16 sources) Type 2 diabetes mellitus without complication; Translations: [Type 2 diabetes mellitus without complications] Onset: 3 09-24-2019 Chronic Diabetes mellitus without complication (1 source) Diabetes mellitus without complication Onset: 8 Disorders of lipid metabolism (16 sources) Hyperlipidemia; Translations: [Hyperlipidemia, unspecified] Onset: 3 09-24-2019 Chronic Esophageal disorders (1 source) Esophageal disorders Onset: 8 Essential hypertension (16 sources) Hypertensive disorder; Translations: [Essential (primary) hypertension] Onset: 3 09-24-2019 Chronic Comment on above: NO MEDS SINCE 2018 Essential hypertension (1 source) Essential hypertension Onset: 8 Menstrual disorders (8 sources) Irregular periods; Translations: [Irregular menstruation, unspecified] Onset: 3 12-24-2012 Chronic Nonmalignant breast conditions (9 sources) Large breast; Translations: [Hypertrophy of breast] 02-21-2020 Episodic Nonspecific chest pain (9 sources) Chest pain; Translations: [Chest pain, unspecified] 10-12-2017 Episodic Other female genital disorders (1 source) Abnormal uterine bleeding; Translations: [Abnormal uterine and vaginal bleeding, unspecified] 06-09-2024 Chronic Other gastrointestinal disorders (9 sources) History of bypass of stomach; Translations: [Bariatric surgery status] 02-23-2020 Episodic Other inflammatory condition of skin (9 sources) Intertrigo; Translations: [Erythema intertrigo] 02-21-2020 Episodic Comment on above: inframammary intertr igo Other non-traumatic joint disorders (9 sources) Shoulder pain; Translations: [Pain in unspecified shoulder] 02-21-2020 Episodic Comment on above: bilateral shoulder p ain from shoulder grooving from the weight of her breasts on her bra straps Other nutritional; endocrine; and metabolic disorders (9 sources) Obesity; Translations: [Obesity, unspecified] 03-18-2017 Chronic Other nutritional; endocrine; and metabolic disorders (7 sources) Metabolic syndrome X; Translations: [Metabolic syndrome] Onset: 3 12-24-2012 Chronic Other nutritional; endocrine; and metabolic disorders (9 sources) Excessive weight loss; Translations: [Abnormal weight loss] 02-21-2020 Episodic Comment on above: 100 lbs from gastric bypass surgery Other screening for suspected conditions (not mental disorders or infectious disease) (11 sources) Electrocardiogram abnormal; Translations: [Abnormal electrocardiogram [ECG] [EKG]] Onset: 5 03-18-2017 Episodic Residual codes; unclassified (9 sources) Obstructive sleep apnea syndrome; Translations: [Obstructive sleep apnea (adult) (pediatric)] 09-24-2019 Chronic Spondylosis; intervertebral disc disorders; other back problems (19 sources) Chronic thoracic back pain; Translations: [Pain in thoracic spine] Onset: 5 02-21-2020 Episodic Thyroid disorders (7 sources) Hypothyroidism; Translations: [Hypothyroidism, unspecified] Onset: 3 12-24-2012 Chronic Unclassified (1 source) Hypothyroidism, unspecified / E03.9(ICD-10) Onset: 8 Unclassified (2 sources) Morbid (severe) obesity due to excess calories / E66.01(ICD-10) Onset: 8 Unclassified (1 source) Obstructive sleep apnea (adult) (pediatric) / G47.33(ICD-10) Onset: 8 Unclassified (1 source) Primary generalized (osteo)arthritis / M15.0(ICD-10) Onset: 8 Unclassified (1 source) Stress incontinence (female) (male) / N39.3(ICD-10) Onset: 8 Unclassified (1 source) Family hx of ischem heart dis and oth dis of the circ sys / Z82.49(ICD-10) Onset: 8 Unclassified (1 source) Body mass index (BMI) 40.0-44.9, adult / Z68.41(ICD-10) Onset: 8 Past or Other Problems Problem Classification Problem Date Documented Date Episodic/Chronic Cancer of cervix (14 sources) High grade squamous intraepithelial lesion on cervical Papanicolaou smear; Translations: [High grade squamous intraepithelial lesion on cytologic smear of cervix (HGSIL)] Onset: 01-14-2013 01-14-2013 Episodic Unclassified (1 source) Morbid (severe) obesity due to excess calories; Translations: [Morbid (severe) obesity due to excess calories] Onset: 06-11-2017 Results Test Name Value Interpretation Reference Range Facility Cerv Spine Obl/Flex/Ext Comp on 07-27-2024 Cerv Spine Obl/Flex/Ext Comp [facility] [address] [place] [address] [id number] Cerv Spine Obl/Flex/Ext Comp MR#: [id number] Acct: [id number] Name: NICOLASA CASTILLO Rep #: [id number] : 1975 F 49 From: Chin Power MD PCP: Dr. Florian Johns MD Status: REG CLI Study: Cerv Spine Obl/Flex/Ext Comp Date of Exam: Exam# [id number] Ordering Dr: Matthew Moyer MD PROCEDURE: CERV SPINE OBL/FLEX/EXT COMP 07/27/2024 REASON FOR EXAM: CHRONIC NECK PAIN AND LEFT SHOULDER TECHNIQUE: 8 views of the cervical spine FINDINGS: Vertebrae: No acute fracture. disc spaces: Normal disc height. Obliques: No neural foraminal stenosis. Alignment: Anatomic alignment. No subluxation on flexion extension views to suggest instability. soft tissues: Normal prevertebral soft tissues. Other: RAD/Cerv Spine Obl/Flex/Ext Comp IMPRESSION: NEGATIVE CERVICAL SPINE. Disclaimer: Reading Location: [id number] CC: Dr. Matthew Moyer MD; Dr. Florian Johns MD Manager Wireless: Signed Normal [facility] CNPN Telephone (OBGYWM) NICOLASA CASTILLO ([id number]) 1975 F Date Time Provider Department 07/09/24 YASMIN KEE OBGYWM During your visit today, we recorded the following information about you: Yasmin Kee MD 07/09/2024 2:48 PM Signed Please notify patient that pathology was benign from lap bilateral salpingectomy. She did have small cyst on one of her tubes that was c/w serous cystadenoma that I removed- nothing further. How is she feeling? No need for post op unless concerns. Jenn Reynolds, YOLIE 07/09/2024 3:05 PM Signed Pt notified and voiced understanding. Pt states hasn't taken any tylenol since the . Advised Pt that no post-op appt is necessary unless she has questions/concerns. Pt states she currently has one scheduled. Advised Pt that is she has questions/concerns for Dr. Jackson then she should keep scheduled appt, but if not she can call and cancel or cancel on mychart. Pt denies questions/concerns at this time. Jenn Reynolds RN Allergies As of Date: 07/09/2024 (No Known Allergies) Date Reviewed: 06/09/2024 Reviewed by: Brianne Morel MA - Fully Assessed Prescriptions as of 07/09/2024 - buPROPion SR (ZYBAN SR; WELLBUTRIN SR) 150 mg 12 hr tablet Take 1 tablet by mouth once daily. - levonorgestrel (MIRENA) 21 mcg/24 hours (8 yrs) 52 mg IUD 1 Each by INTRAUTERINE route one time only. - SYNTHROID 88 MCG TAB Take one(1) tablet daily. - ALLOPURINOL 100 MG TAB Take one(1) tablet daily. Problem List As Of Date 07/09/2024 Noted Resolved Irregular menstrual cycle [N92.6] 12/24/2012 DM type 2 (diabetes mellitus, type 2) [E11.9] 12/24/2012 HTN (hypertension) [I10] 12/24/2012 Hypercholesteremia [E78.00] 12/24/2012 Dysmetabolic syndrome [E88.810] 12/24/2012 Hypothyroid [E03.9] 12/24/2012 HSIL (high grade squamous intraepithelial lesio*01/14/2013 GILES III (cervical intraepithelial neoplasia gra*02/13/2013 Encounter Status:Closed by JENN REYNOLDS on 07/09/24 Normal [facility] Anion gap in Serum or Plasma Ordered By: Yasmin Crouch on 07-03-2024 Anion gap [Moles/Vol] 12 mmol/L 08-13 [facility] BUN/creatinine ratioOrdered By: Yasmin Crouch on 07-03-2024 Urea nitrogen/Creatinine [Mass ratio] 31.6 mg/mg High 01-18 [facility] Basic Metabolic Profile (BMP )on 07-03-2024 BUN/CRE 31.6 RATIO High 01-18 [facility] Comment on above: Performed By: #### L 501.5144, L500.2500, L400.2128 #### [facility] [address] [place], [address] Calcium [Mass/Vol] 9.2 mg/dL Normal 7.6-11.0 [facility] Comment on above: Performed By: #### L [id number], L500.2500, L400.7600 #### [facility] [address] [place], [address] Chloride [Moles/Vol] 108 mmol/L Normal 98-108 [facility] Comment on above: Performed By: #### L [id number], L500.2500, L400.7600 #### [facility] [address] [place], [address] CO2 [Moles/Vol] 22.5 mmol/L Normal 21.0-32.0 [facility] Comment on above: Performed By: #### L [id number], L500.2500, L400.7600 #### [facility] [address] [place], [address] Creatinine [Mass/Vol] 0.66 mg/dL Low 0.70-1.20 [facility] Comment on above: Performed By: #### L [id number], L500.2500, L400.7600 #### [facility] [address] [place], [address] ECRCL 119.64 ml/min Normal 50-250 [facility] Comment on above: Performed By: #### L [id number], L500.2500, L400.7600 #### [facility] [address] [place], [address] GAP 12 Normal 5-15 [facility] Comment on above: Performed By: #### L [id number], L500.2500, L400.7600 #### [facility] [address] [place], [address] GFR/1.73 sq M.predicted among non-blacks MDRD (S/P/Bld) [Vol rate/Area] 108 mL/min/{1.73_m2} Normal >60 [facility] Comment on above: Result Comment: mL/m in/1.73m2 CKD-EPI Creatinine Equation (2020) Performed By: #### L [id number], L500.2500, L400.7600 #### [facility] [address] [place], [address] Glucose [Mass/Vol] 94 mg/dL Normal 70-99 [facility] Comment on above: Performed By: #### L [id number], L500.2500, L400.7600 #### [facility] [address] [place], [address] Potassium [Moles/Vol] 3.9 mmol/L Normal 3.3-5.1 [facility] Comment on above: Performed By: #### L [id number], L500.2500, L400.7600 #### [facility] [address] [place], [address] Sodium [Moles/Vol] 142 mmol/L Normal 133-145 [facility] Comment on above: Performed By: #### L [id number], L500.2500, L400.7600 #### [facility] [address] [place], [address] Urea nitrogen [Mass/Vol] 21 mg/dL High 4-19 [facility] Comment on above: Performed By: #### L [id number], L500.2500, L400.7600 #### [facility] [address] [place], [address] CBC-Complete Blood Cnt No Di ffon 07-03-2024 Erythrocyte distribution width (RBC) [Ratio] 13.4 % Normal 11.6-14.6 [facility] Comment on above: Performed By: #### L 100.0500 #### [facility] [address] [place], [address] Hematocrit (Bld) [Volume fraction] 33.4 % Low 37-47 [facility] Comment on above: Performed By: #### L 100.0500 #### [facility] [address] [place], [address] Hemoglobin (Bld) [Mass/Vol] 11.0 g/dL Low 12.0-15.0 [facility] Comment on above: Performed By: #### L 100.0500 #### [facility] [address] [place], [address] MCH (RBC) [Entitic mass] 29.3 pg Normal 27.0-32.0 [facility] Comment on above: Performed By: #### L 100.0500 #### [facility] [address] [place], [address] MCHC (RBC) [Mass/Vol] 32.9 g/dL Normal 32-36 [facility] Comment on above: Performed By: #### L 100.0500 #### [facility] [address] [place], [address] MCV (RBC) [Entitic vol] 88.8 fL Normal 81-99 [facility] Comment on above: Performed By: #### L 100.0500 #### [facility] [address] [place], [address] Platelet mean volume (Bld) [Entitic vol] 10.1 fL Normal 6.2-12.0 [facility] Comment on above: Performed By: #### L 100.0500 #### [facility] [address] [place], [address] Platelets (Bld) [#/Vol] 246 10*3/uL Normal 150-450 [facility] Comment on above: Performed By: #### L 100.0500 #### [facility] [address] [place], [address] RBC (Bld) [#/Vol] 3.76 10*6/uL Low 4.2-5.4 [facility] Comment on above: Performed By: #### L 100.0500 #### [facility] [address] [place], [address] RDW SD 43.8 fl Normal 35.1-43.9 [facility] Comment on above: Performed By: #### L 100.0500 #### [facility] [address] [place], [address] WBC (Bld) [#/Vol] 3.9 10*3/uL Low 4.4-11.0 [facility] Comment on above: Performed By: #### L 100.0500 #### [facility] [address] [place], [address] Carbon dioxide, total [Moles /volume] in Central venous bloodOrdered By: Yasmin Crouch on 07-03-2024 CO2 [Moles/Vol] 22.5 mmol/L 21.0-32.0 [facility] Chloride assayOrdered By: Monte on 07-03-2024 Chloride [Moles/Vol] 108 mmol/L 98-108 [facility] Discharge Instructionon Discharge Instruction [facility] Medical Records Department [address] [place] [address] Instructions for Home/Discharge Instructions 07/03/24 0823 MR#: [id number] Acct: [id number] Name: NICOLASA CASTILLO Rep #: [id number] : 1975 49 From: Yasmin Crouch MD PCP: Dr. Florian Johns MD Status:REG [facility] Discharge Instructions Diet Discharge Diet: No restrictions DC O2, CPAP, BIPAP needs Home O2 Discharge instructions: No Dressing / Incision May resume sexual activity in: 1 week Lifting Restrictions: 20-25 lbs Dressing / Incision Call your doctor if your incision/area has: Continuous Slow Oozing, Sudden Increased Bleeding, Increased Pain/ Swelling, Increased Redness, Foul Smelling Discharge and Swelling at the incision site Call your doctor if you observe: Fever of 101 or Higher, Inability to urinate, Inability to have a bowel movement, Using more than 1 pad per hour and Uncontrolled pain Additional Dressing/Incision Instructions:: You have skin glue over your incision sites, do not pick off. You may shower and let the soap and water run over the incision sites and dab dry. Follow Up Care Please Follow Up With: Laura Crouch MD When: 1-2 weeks post OP if you need an appointment please call [phone] Test Results: Test results from this visit will be discussed in further detail at your follow-up appointment, if applicable. Discharge Plan Admission Attending Provider: Luara Crouch Primary Care Provider: Florian Johns Instructions Print Language: Solomon Islander Discharge Orders/Prescriptions Prescriptions: No Action levothyroxine 88 MCG tablet 88 mcg PO DAILY allopurinol 100 mg tablet 100 mg PO DAILY bupropion HCl 300 mg tablet extended release 24 hr 300 mg PO DAILY meloxicam 15 mg tablet 15 mg PO DAILY gabapentin 300 mg capsule 300 mg PO QHS Referrals / Follow Up: Florian Johns MD [Primary Care Provider] - Disposition Disposition (needs filled in before D/C Order can be placed): Home, Self Care 07/03/24 0824 Yasmin Crouch MD CC: Dr. Florian Johns MD Signed Normal [facility] Erythrocyte distribution wid th (RBC) [Ratio]Ordered By: Yasmin Crouch on 07-03-2024 Erythrocyte distribution width (RBC) [Entitic vol] 43.8 fL 35.1-43.9 [facility] Erythrocyte distribution wid th ratioOrdered By: Yasmin Crouch on 07-03-2024 Erythrocyte distribution width (RBC) [Ratio] 13.4 % 11.6-14.6 [facility] Estimation of creatinine amanda aranceOrdered By: Yasmin Crouch on 07-03-2024 Estimated Creatinine Clearance Calc 119.64 ml/min 50-250 [facility] GFR/1.73 sq M.predicted ernie g non-blacks MDRD (S/P/Bld) [Vol rate/Area]Ordered By: Yasmin Crouch on 07-03-2024 Estimated GFR (MDRD) Non-Af Amer 108 >60 [facility] Comment on above: mL/min/1.73m2 CKD-EP I Creatinine Equation (2020) Hematocrit Auto (Bld) [Volum e fraction]Ordered By: Yasmin Crouch on 07-03-2024 Hematocrit (Bld) [Volume fraction] 33.4 % Low 37-47 [facility] Hemoglobin measurementOrdere d By: Yasmin Crouch on 07-03-2024 Hemoglobin (Bld) [Mass/Vol] 11.0 g/dL Low 12.0-15.0 [facility] MCV (mean corpuscular volume ) determinationOrdered By: Yasmin Crouch on 07-03-2024 MCV (RBC) [Entitic vol] 88.8 fL 81-99 [facility] MR/POSTOP.ANEon 07-03-2024 MR/POSTOP.[facility] Medical Records Department [address] [place] [address] Anesthesia Postop Eval I 07/03/24930 MR#: [id number] Acct: [id number] Name: NICOLASA CASTILLO Rep #: [id number] : 1975 49 From: Tamela Desai CRNA PCP: Dr. Florian Johns MD Status:REG SDC Y Race: C Location: [place] [address] Anesthesia: Postop Eval I Current Vital Signs Temperature: 97 F Pulse Rate: 88 Blood Pressure: 135/99 Respiratory Rate: 18 Pulse Ox: 97 Oxygen Delivery Method: Room Air Assessment Airway patent: Yes Spontaneous unlabored respirations: Yes Mental status: Awake nausea: No Vomiting: No Anesthesia Complication: No Fluid Hydration Crystalloid volume administer (ml): 1,000 Total IV fluid infused: 1,000 Progress Note Anesthesia document: Postop Eval 1 completed: Yes 07/03/2433 Date Tamela Desai NURSING CLERK Cosigner Signature: Date CC: Signed Normal [facility] [id number] 07-03-2024 MR/POSTOPAN2 [facility] Medical Records Department [address] [place] [address] Anesthesia Postop Eval II 07/03/24 105 MR#: [id number] Acct: [id number] Name: NICOLASA CASTILLO Rep #: [id number] : 1975 49 From: Rose Geiger PCP: Dr. Florian Johns MD Status:REG PAC Y Race: C Location: [address] Anesthesia Postop Eval I Sum Postop Eval Completion status Anesthesia document: Postop Eval 1 completed: Yes Anesthesia Postop Eval I Summary Anesthesia Postop Eval I Summary: Anesthesia Postop Eval I: Assessment Summary Airway patent Yes 07/03/24 09:33 NURSING [email or web address] Spontaneous unlabored Yes 07/03/24 09:33 NURSING [email or web address] respirations Mental status Awake 07/03/24 09:33 NURSING [email or web address] nausea No 07/03/24 09:33 NURSING CLERK.LMIL Vomiting No 07/03/24 09:33 NURSING [email or web address] Anesthesia Postop Eval I: Fluid Summary Crystalloid volume administer 1,000 07/03/24 09:33 NURSING CLERK.LMIL (ml) Colloids volume administered ( ml) Blood Product volume administered (ml) Total IV fluid infused 1,000 07/03/24 09:33 NURSING [email or web address] Anesthesia Postop Eval I: Summary Notes Anesthesia Complication No 07/03/24 09:33 NURSING [email or web address] Anesthesia Complication Comment: Post-operative progress note Anesthesia: Postop Eval II Evaluation Mental status: Awake Pain Level: 2 nausea: No Vomiting: No 07/03/241049 Date Rose Geiger Cosignshravan Signature: CC: Signed Normal [facility] Mean corpuscular hemoglobin (MCH) determinationOrdered By: Yasmin Jackson on 07-03-2024 MCH (RBC) [Entitic mass] 29.3 pg 27.0-32.0 [facility] Mean corpuscular hemoglobin concentration (MCHC) determinationOrdered By: Yasmin Crouch on 07-03-2024 MCHC (RBC) [Mass/Vol] 32.9 g/dL 32-36 [facility] Mean platelet volume determi nationOrdered By: Yasmin Crouch on 07-03-2024 Platelet mean volume (Bld) [Entitic vol] 10.1 fL 6.2-12.0 [facility] Operative Reporton Operative Report [facility] Medical Records Department [address] [place] [address] Operative Report 07/03/24 0913 MR#: [id number] Acct: [id number] Name: NICOLASA CASTILLO Rep #: [id number] : 1975 49 From: Yasmin Crouch MD PCP: Dr. Florian Johns MD Status:[facility] Location: [place] [address] Operative Report (Standard) Operative Information Date of Procedure: 07/03/24 Pre-Operative Diagnosis: desires sterilization, dysmenorrhea, heavy menses Post-Operative Diagnosis: same, Omental adhesions Surgery/Procedure Performed: IUD removal, IUD- liletta insertion, laparoscopic bilateral salpingectomy, Lysis of adhesions die designer: No Type of Anesthesia: General and Local RN Documented Start/Stop Times: Operation Date: 07/03/24 08:15 Case Time Into Pre-Op 07/03/24 06:50 Out of Pre-Op 07/03/24 08:22 Procedure Start Time: 08:38 Procedure Stop Time: 09:12 Select all DRAINS/GRAFTS/IMPLANTS that apply: None Special Medications: Liletta IUD Estimated Blood Loss: 10 Fluids Replaced: 1100 Specimen collected: Yes Description of specimen(s) removed: bilateral fallopian tubes Description of surgery: After informed consent was obtained patient was taken to the operating room she was placed in supine position she was given anesthesia. She was then placed in the [facility] stirru and she was prepped and draped in normal sterile fashion. Bladder was drained prior to the start of procedure. At this time attention was turned to the vaginal portion where weighted speculum placed at posterior fornix vagina single-tooth tenaculum was used to gently grasp the internal the cervix. uterus was gently sounded to approximately 7cm. Mirena IUD strings were visualized and the Mirena IUD was removed intact without complication. Uterine manipulator was placed without difficulty. Legs then placed in parallel with the abdomen the tenaculum and the weighted speculum were removed. 2 towel clamps were placed at level of umbilicus. Marcaine was injected infraumbilical and a small incision was made. The 5 mm trocar was placed under direct visualization. CO2 gas was used to insufflate the intra-abdominal cavity. Upon inspection significant omental adhesions to the anterior abdominal wall were appreciated which were obscuring our view and had to be taken down prior to placement of the right lower quadrant port. At this time the left lower quadrant port was placed-Marcaine was injected small incision was made and the trocar was placed under direct visualization. The Enseal was then used to coagulate and ligate along the clear space close to the anterior abdominal wall making sure it was free of any vital structures the omentum was then dropped down allowing better visualization. Once the adhesions were freed and hemostasis was appreciated the right lower quadrant was placed in the same manner as the left lower quadrant. At this time then tubes were traced back to the fimbriated ends. Enseal was used to coagulate and ligate along mesosalpynx bilaterally until tubes removed completely. Good hemostasis was appreciated. At this time procedure was deemed complete successful. The gas was desufflated on from the intra-abdominal cavity. The trochars were removed. Skin was closed using 4-0 Monocryl in a subcutaneous fashion. Dermabond glue was placed. Instrument lap and needle counts were correct ???2. The uterine manipulator was removed. The Liletta IUD was open the Liletta IUD was placed at the fundus of the uterus without complication. The strings were cut to 2 cm from the cervical os. The single-tooth tenaculum was removed from the anterior lip of the cervix some small bleeding was noted pressure was held. Vaginal sweep was performed it was negative. There were no complications anticipated normal postoperative course for this patient. Surgical Findings: Omental adhesions to the anterior abdominal wall. Complications Complications: No Admit VTE Documentation VTE Present on Admission: Yes VTE Mechan Device Prophylaxis: SCD's VTE Pharm Prophylaxis ordered?: No Reason prophylaxis not ordered: Treatment Not Indicated 07/03/24 0920 Cosigner Signature (if applicable): CC: Dr Yasmin Crouch MD; Dr. Florian Johns MD Signed Normal [facility] Platelet countOrdered By: Monte on 07-03-2024 Platelets (Bld) [#/Vol] 246 10*3/uL 150-450 [facility] Potassium (Unsp spec) [Mass/ Vol]Ordered By: Yasmin Crouch on 07-03-2024 Potassium [Moles/Vol] 3.9 mmol/L 3.3-5.1 [facility] ,Urineon 07-03-2024 Beta HCG ( test) Ql (U) Negative Normal [facility] Comment on above: Result Comment: Very dilute urine specimens, as indicated by a low specific gravity, may not contain data entry representative levels of hCG. If is still suspected, a first morning urine specimen should be collected 48 hours later and tested. Performed By: #### L 501.9520, L500.2500, L400.7600 #### [facility] [address] [place], [place], [id number] RBC Auto (Bld) [#/Vol]Ordere d By: Yasmin Crouch on 07-03-2024 RBC (Bld) [#/Vol] 3.76 10*6/uL Low 4.2-5.4 [facility] Serum creatinine measurement (mass/volume)Ordered By: Yasmin Crouch on 07-03-2024 Creatinine [Mass/Vol] 0.66 mg/dL Low 0.70-1.20 [facility] Serum glucose measurement (m ass/volume)Ordered By: Yasmin Crouch on 07-03-2024 Glucose [Mass/Vol] 94 mg/dL 70-99 [facility] Serum or plasma calcium aby urement (mass/volume)Ordered By: Yasmin Jackson on 07-03-2024 Calcium [Mass/Vol] 9.2 mg/dL 7.6-11.0 [facility] Serum or plasma urea nitroge n measurement (mass/volume)Ordered By: Yasmin Crouch on 07-03-2024 Urea nitrogen [Mass/Vol] 21 mg/dL High 4-19 [facility] Sodium levelOrdered By: Saurav Crouch on 07-03-2024 Sodium [Moles/Vol] 142 mmol/L 133-145 [facility] Surgery Specimen Level IIon 07-03-2024 Surgery Specimen Level II ---- Patient Age/Sex Location Account Attending Physician ---- NICOLASA CASTILLO 49/F [facility] [id number] Dr Yasmin Crouch, ---- Specimen: [id number] Received: 07/03/24 Status: STEVENSON Reed Num: [id number] Spec Type: FALL TUBES Subm Dr: Dr Yasmin Barrett-MD Neto HEADER OPERATION: Laparoscopic, salpingectomy, lysis of adhesions PRE-OP DIAGNOSIS: Desires sterilization TISSUE SUBMITTED: A- Bilateral fallopian tubes ---- MICROSCOPIC DIAGNOSIS A. Bilateral fallopian tubes, sterilization, salpingectomy: - Detached benign serous cyst consistent with serous cystadenoma. - Complete luminal cross-section confirmed, x1. MICROSCOPIC DESCRIPTION Slides are reviewed. GROSS DESCRIPTION A. Received in formalin in a container labeled with the patient's name, date of , and bilateral fallopian tubes are 2 unoriented and fimbriated fallopian tube segments, each measuring 6.0 cm in length by 0.7 cm in diameter. The serosa of each is pink-brooks, smooth, and glistening. Serial sections of each reveal a pinpoint lumen. Received in the same container is a 1.0 x 1.0 x 0.8 cm thin-walled cystic structure. The cyst is opened to reveal thin, yellow-tinged fluid with a smooth and glistening inner lining. Broadcast Technician sections are submitted as follows:A1. First fallopian tube and fimbriated end with cystic structureA2. Second fallopian tube with fimbriated end [facility] 07-03-2024 CPT:36874 ---- Patient Age/Sex Location Account Attending Physician ---- NICOLASA CASTILLO 49/F [facility] [id number] Dr Yasmin Barrett-Neto, ---- Signed (signature on file) Dr. Juany King MD 07/08/24 1707 ---- Normal [facility] Comment on above: Performed By: #### P SUII #### [facility] [place], [address] TSH DL <= 0.005 mIU/L Jesus red By: Jan Daniel on 07-03-2024 Thyroid Stimulating Hormone (TSH) 2.140 uIU/mL 0.300-4.200 [facility] Thyroid Stim Hormone (TSH)on 07-03-2024 TSH 2.140 uIU/mL Normal 0.300-4.200 [facility] Comment on above: Performed By: #### L 501.9520, L500.2500, L400.7600 #### [facility] [address] [place], [address] Urine testOrdered By: Jan Daniel on 07-03-2024 HCG ( test) Ql (U) Negative [facility] Comment on above: Very dilute urine sp ecimens, as indicated by a low specificgravity, may not contain data entry representative levels of hCG. If is still suspected, a first morning urinespecimen should be collected 48 hours later and tested. White blood cell (WBC) count Ordered By: Yasmin Crouch on 07-03-2024 WBC (Bld) [#/Vol] 3.9 10*3/uL Low 4.4-11.0 [facility] H AND P Exam - OB/GYNon H&P Exam - ACCESSIONER [facility] Medical Records Department [address] [place] [address] H P Exam - ACCESSIONER 07/02/24 1331 MR#: [id number] Acct: [id number] Name: NICOLASA CASTILLO Rep #: [id number] : 1975 49 From: Yasmin Crouch MD PCP: Dr. Florian Johns MD Status:[facility] Location: [place] [address] History and Physical Date of Admission: 07/03/24 Expand All Collapse All Pre-Op History and Physical HPI: The patient is a 49 year old female presenting for pre-operative visit. She is scheduled for laparoscopic bilateral salpingectomy and IUD removal/insertion of liletta , for Desires sterilization and Menstrual control- heavy menses/dysmenorrhea on 07/03/24. Procedure discussed along with risks, benefits and complications. Other alternatives discussed for management. Consent form signed? Yes. PAST MEDICAL HISTORY PAST MEDICAL HISTORY Diagnosis Date ??? Diabetes (HCC) ??? Dysmetabolic syndrome ??? Gout ??? Hypercholesteremia ??? Hypertension ??? Hypothyroidism PAST SURGICAL HISTORY PAST SURGICAL HISTORY Procedure Laterality Date ??? ASPIRATION /INJECTION GANGLION CYST ANY LOCATJ Right 04/2023 removal cyst ??? MIRENA 03/23/2013 ??? OFFICE LEEP 02/13/2013 Negative ??? PAST SURGICAL HISTORY OF 05/2017 gastric [facility] ??? REDUCTION OF LARGE BREAST Bilateral 2019 ??? VAGINOSCOPY 01/14/2013 GILES 3 ??? VAGINOSCOPY 01/06/2014 CURRENT MEDICATIONS Current Outpatient Medications Medication Sig Dispense Refill ??? buPROPion SR (ZYBAN SR; WELLBUTRIN SR) 150 mg 12 hr tablet Take 1 tablet by mouth once daily. ??? levonorgestrel (MIRENA) 21 mcg/24 hours (8 yrs) 52 mg IUD 1 Each by INTRAUTERINE route one time only. ??? SYNTHROID 88 MCG TAB Take one(1) tablet daily. 0 ??? ALLOPURINOL 100 MG TAB Take one(1) tablet daily. 0 No current facility-administered medications for this visit. ALLERGIES: Patient has no known allergies. PERSONAL HISTORY: SOCIAL HISTORY Social History Tobacco Use ??? Smoking status: Never ??? Smokeless tobacco: Never Vaping Use ??? Vaping status: Never Used Substance Use Topics ??? Alcohol use: Yes Comment: occasional ??? Drug use: No FAMILY HISTORY: FAMILY HISTORY FAMILY HISTORY Problem Relation Age of Onset ??? Heart Mother REVIEW OF SYMPTOMS: negative except as noted above PHYSICAL EXAMINATION: VITALS: Blood pressure 134/72, height 170.2 cm (5' 7), weight 89.8 kg (198 lb), last menstrual period 07/27/2014. GENERAL: The patient is well nourished, well hydrated in no acute distress. , The patient is oriented to time, place, and person. NECK: Full range of motion LUNGS: Clear to auscultation bilaterally. no wheezes, rhonchi or rales HEART: Regular rate and rhythm, Normal heart sounds, and No murmurs or gallops IMPRESSION: 49yo desires sterilization and IUD - Liletta for menstrual regulation - h/o AUB and dysmenorrhea PLAN: Laparoscopic Bilateral salpingectomy and IUD removal and reinsertion with Liletta Pt has been counseled on risks/benefits and alternatives of surgery including but not limited to anesthesia, bleeding, infection, injury to pelvic structures including bowel, bladder, ureters and vessels. Pt wishes to proceed with surgery at this time. Pre and post op instructions reviewed I have reviewed and updated past medical and surgical history, medications and allergies Yasmin Jackson MD Office Visit on 06/09/2024 Note shared with patient 07/02/24 1332 Cosigner Signature (if applicable): CC: Dr Yasmin Crouch MD; Dr. Florian Johns MD Signed ADDENDUM by Dr Yasmin Crouch MD on 07/03/24 at 0722 Addendum I have examined the patient and the H P has been reviewed. There are no clinical changes since date of exam. 07/03/24 0722 Cosigner Signature (if applicable): cc: Dr Yasmin Crouch MD; Dr. Florian Johns MD * Signed [facility] Medical Records Department [address] [place] [address] PAT - Anesthesia 06/10/24 1114 MR#: [id number] Acct: [id number] Name: NICOLASA CASTILLO Rep #: [id number] : 1975 49 From: Jan Daniel MD PCP: Dr. Florian Johns MD Status:PRE [facility] Y Race: C Location: [facility] Pre-Assessment Diagnosis/Proposed Procedure Planned Operative Procedure(s): LAP SALPINGECTOMY BILAT,REMOVAL MIRENA IUD INSERTION OF LILETTA IUD Anesthesia History Anesthesia History - dye colorist formulator: Anesthesia History - dye colorist formulator Hx Hospitalization No 06/10/24 08:11 Any Problems With Anesthesia No 06/10/24 08:11 Cholinesterase deficiency No 06/10/24 08:11 You/Your Family Experience No 06/10/24 08:11 fever (hyperthermia) with Relationship Recent Exposure to Contagious No 04/18/23 13:55 Disease Does patient have nerve No 06/10/24 08:11 stimulator Patient instructed to have device shut off --Does patient have Pacemaker or ICD? When Was Last Pacemaker Check QUESTION #4 FULL TEXT: You/Your Family Experience fever (hyperthermia) with Anesthesia Last Oral Intake Last Oral intake: Last Oral Intake NPO since Meds taken in AM with sips of water? Meds patient instructed to take am of surgery PONV PONV - dye colorist formulator: PONV - dye colorist formulator Female Yes 06/10/24 08:11 HX of Motion Sickness Yes 06/10/24 08:11 HX of N/V After Surgery No 06/10/24 08:11 Non-Smoker Yes 06/10/24 08:11 Duration of Surgery greater No 06/10/24 08:11 than 60 minutes Number of Risk Factors 3 06/10/24 08:11 PONV Score Moderate Risk 06/10/24 08:11 Height Weight Height Weight: Anesthesia: Height Weight Height 5 ft 8 in 04/18/23 13:55 Respiratory Assessment Respiratory Assessment - dye colorist formulator: Respiratory Tract Infection Hx - dye colorist formulator Hx Respiratory Tract Infection No 06/10/24 08:11 STOP Sleep Apnea STOP Sleep Apnea - dye colorist formulator: STOP Sleep Apnea - dye colorist formulator Hx Hypertension Yes: NO MEDS SINCE 201706/10/24 08:11 Hx Sleep Apnea No 06/10/24 08:11 CPAP No: BEFORE WEIGHT LOSS 04/18/23 16:53 BIPAP No 04/08/23 13:20 Do you snore loudly (louder No 06/10/24 08:11 than talking or can be heard Do you often feel tired/ No 06/10/24 08:11 fatigued/ sleepy during daytime? Has anyone observed you stop No 06/10/24 08:11 breathing during sleep? STOP Results Negative 06/10/24 08:11 QUESTION #5 FULL TEXT : Do you snore loudly (louder than talking or can be heard through closed doors)? Tobacco Use History Tobacco Use History - dye colorist formulator: Tobacco Use History - dye colorist formulator Tobacco Use Smoking Status Never smoker 06/10/24 08:11 Hx Tobacco Use No 06/10/24 08:11 Years Smoking Packs Smoked per Day Smoking Cessation Date was within the last 15 years Hx Smoking Cessation Date Hx Smoking Cessation Counseling Hematologic Medial History Hematologic Hx - dye colorist formulator: Hematologic Medical Hx - documentation specialist Hx of Blood Transfusion No 06/10/24 08:11 Hx of Transfusion in last 3 No 06/10/24 08:11 Months Date of Last Transfusion (if within last 3 months) Ever experience any problems No 06/10/24 08:11 with transfusion(s)? Specify any problems Hx of Preganancy in last 3 No 06/10/24 08:11 Months Nurse Filling Out Transfusion DSCHRIBER 06/10/24 08:11 Questions: Date: 06/10/24 06/10/24 08:11 Time: 08:13 06/10/24 08:11 Patient unable to answer at this time (ie. confused, unrespo /Reproduction History /Reproductive History - dye colorist formulator: /Reproductive Hx- dye colorist formulator Hx Now No 06/10/24 08:11 Gestational Age (in weeks): EDC: Hx Hx Para Hx Section SAB No 06/10/24 08:11 [facility] Medical History (Updated 06/10/24 @ 08:17 by Shari Ferreira) Alcohol use Migraine headache Leg cramps History of echocardiogram History of stress test Cardiology follow-up encounter Wears glasses Nonhealing surgical wound Excessive weight loss Intertrigo Shoulder pain Chronic thoracic back pain Chronic neck pain Macromastia Anxiety and depression Hyperlipidemia Gout Obstructive sleep apnea Obesity Hypertension Type 2 diabetes mellitus without complications Home Medications ???Medication ???Instructions ???Recorded ???Last Taken ???Type levothyroxine 88 mcg tablet 88 mcg PO DAILY thyroid 06/17/13 0 04/17/23 History allopurinol 100 mg tablet 100 mg PO DAILY 06/10/24 Unknown H istory bupropion HCl 300 mg 24 hr tablet, 300 mg PO DAILY 06/10/24 Unknown History extended release gabapentin 300 mg caps (more content not included)... Normal [facility] CNOVon 06-09-2024 CNOV Office Visit (OBGYWM ) NICOLASA CASTILLO ([id number]) 1975 F Date Time Provider Department 06/09/24 4:20 PM YASMIN KEE OBTRWIrlanda During your visit today, we recorded the following information about you: Blood pressure Weight Height 134/72 89.8 kg 1.702 m Yasmin Kee MD 06/09/2024 5:27 PM Signed Pre-Op History and Physical HPI: The patient is a 49 year old female presenting for pre-operative visit. She is scheduled for laparoscopic bilateral salpingectomy and IUD removal/insertion of liletta , for Desires sterilization and Menstrual control- heavy menses/dysmenorrhea on 07/03/24. Procedure discussed along with risks, benefits and complications. Other alternatives discussed for management. Consent form signed? Yes. PAST MEDICAL HISTORY Diagnosis Date Diabetes (HCC) Dysmetabolic syndrome Gout Hypercholesteremia Hypertension Hypothyroidism PAST SURGICAL HISTORY Procedure Laterality Date ASPIRATIONAND/INJECTIO N GANGLION CYST ANY LOCATJ Right 04/2023 removal cyst MIRENA 03/23/2013 OFFICE LEEP 02/13/2013 Negative PAST SURGICAL HISTORY OF 05/2017 gastric bi [facility] REDUCTION OF LARGE BREAST Bilateral 2020 VAGINOSCOPY 01/14/2013 GILES 3 VAGINOSCOPY 01/06/2014 Current Outpatient Medications Medication Sig Dispense Refill buPROPion SR (ZYBAN SR; WELLBUTRIN SR) 150 mg 12 hr tablet Take 1 tablet by mouth once daily. levonorgestrel (MIRENA) 21 mcg/24 hours (8 yrs) 52 mg IUD 1 Each by INTRAUTERINE route one time only. SYNTHROID 88 MCG TAB Take one(1) tablet daily. 0 ALLOPURINOL 100 MG TAB Take one(1) tablet daily. 0 No current facility-administered medications for this visit. ALLERGIES: Patient has no known allergies. PERSONAL HISTORY: Social History Tobacco Use Smoking status: Never Smokeless tobacco: Never Vaping Use Vaping status: Never Used Substance Use Topics Alcohol use: Yes Comment: occasional Drug use: No FAMILY HISTORY: FAMILY HISTORY Problem Relation Age of Onset Heart Mother REVIEW OF SYMPTOMS: negative except as noted above PHYSICAL EXAMINATION: VITALS: Blood pressure 134/72, height 170.2 cm (5' 7), weight 89.8 kg (198 lb), last menstrual period 07/27/2014. GENERAL: The patient is well nourished, well hydrated in no acute distress. , The patient is oriented to time, place, and person. NECK: Full range of motion LUNGS: Clear to auscultation bilaterally. no wheezes, rhonchi or rales HEART: Regular rate and rhythm, Normal heart sounds, and No murmurs or gallops IMPRESSION: 49yo desires sterilization and IUD - Rose for menstrual regulation - h/o AUB and dysmenorrhea PLAN: Laparoscopic Bilateral salpingectomy and IUD removal and reinsertion with Liletta Pt has been counseled on risks/benefits and alternatives of surgery including but not limited to anesthesia, bleeding, infection, injury to pelvic structures including bowel, bladder, ureters and vessels. Pt wishes to proceed with surgery at this time. Pre and post op instructions reviewed I have reviewed and updated past medical and surgical history, medications and allergies MD Nena Dick Deidre, MD 06/09/2024 5:27 PM Signed Allergies As of Date: 06/09/2024 (No Known Allergies) Date Reviewed: 06/09/2024 Reviewed by: Brianne Morel MA - Fully Assessed Reason for Visit: Pre-Op Visit [1235] Primary Visit Diagnosis:Sterilizatio n consult [Z30.09] Other Visit Diagnoses:Abnormal uterine bleeding (AUB) [N93.9] Dysmenorrhea [N94.6] Pre-op exam [Z01.818] Prescriptions as of 06/09/2024 - buPROPion SR (ZYBAN SR; WELLBUTRIN SR) 150 mg 12 hr tablet Take 1 tablet by mouth once daily. - levonorgestrel (MIRENA) 21 mcg/24 hours (8 yrs) 52 mg IUD 1 Each by INTRAUTERINE route one time only. - SYNTHROID 88 MCG TAB Take one(1) tablet daily. - ALLOPURINOL 100 MG TAB Take one(1) tablet daily. Problem List As Of Date 06/09/2024 Noted Resolved Irregular menstrual cycle [N92.6] 12/24/2012 DM type 2 (diabetes mellitus, type 2) [E11.9] 12/24/2012 HTN (hypertension) [I10] 12/24/2012 Hypercholesteremia [E78.00] 12/24/2012 Dysmetabolic syndrome [E88.810] 12/24/2012 Hypothyroid [E03.9] 12/24/2012 HSIL (high grade squamous intraepithelial lesio*01/14/2013 GILES III (cervical intraepithelial neoplasia gra*02/13/2013 Encounter Status:Closed by YASMIN JACKSON on 06/09/24 [facility] HISTORY PHYSICALon HISTORY PHYSICAL HNO ID: [id number] Author: YASMIN KEE MD Service: ? Author Type: Physician Type: H&P Filed: 06/09/2024 17:27 Note Text: Pre-Op History and Physical HPI: The patient is a 49 year old female presenting for pre-operative visit. She is scheduled for laparoscopic bilateral salpingectomy and IUD removal/insertion of liletta , for Desires sterilization and Menstrual control- heavy menses/dysmenorrhea on 07/03/24. Procedure discussed along with risks, benefits and complications. Other alternatives discussed for management. Consent form signed? Yes. PAST MEDICAL HISTORY Diagnosis Date Diabetes (HCC) Dysmetabolic syndrome Gout Hypercholesteremia Hypertension Hypothyroidism PAST SURGICAL HISTORY Procedure Laterality Date ASPIRATIONAND/INJECTIO N GANGLION CYST ANY LOCATJ Right 04/2023 removal cyst MIRENA 03/23/2013 OFFICE LEEP 02/13/2013 Negative PAST SURGICAL HISTORY OF 05/2017 [facility] REDUCTION OF LARGE BREAST Bilateral 2020 VAGINOSCOPY 01/14/2013 GILES 3 VAGINOSCOPY 01/06/2014 Current Outpatient Medications Medication Sig Dispense Refill buPROPion SR (ZYBAN SR; WELLBUTRIN SR) 150 mg 12 hr tablet Take 1 tablet by mouth once daily. levonorgestrel (MIRENA) 21 mcg/24 hours (8 yrs) 52 mg IUD 1 Each by INTRAUTERINE route one time only. SYNTHROID 88 MCG TAB Take one(1) tablet daily. 0 ALLOPURINOL 100 MG TAB Take one(1) tablet daily. 0 No current facility-administered medications for this visit. ALLERGIES: Patient has no known allergies. PERSONAL HISTORY: Social History Tobacco Use Smoking status: Never Smokeless tobacco: Never Vaping Use Vaping status: Never Used Substance Use Topics Alcohol use: Yes Comment: occasional Drug use: No FAMILY HISTORY: FAMILY HISTORY Problem Relation Age of Onset Heart Mother REVIEW OF SYMPTOMS: negative except as noted above PHYSICAL EXAMINATION: VITALS: Blood pressure 134/72, height 170.2 cm (5' 7), weight 89.8 kg (198 lb), last menstrual period 07/27/2014. GENERAL: The patient is well nourished, well hydrated in no acute distress. , The patient is oriented to time, place, and person. NECK: Full range of motion LUNGS: Clear to auscultation bilaterally. no wheezes, rhonchi or rales HEART: Regular rate and rhythm, Normal heart sounds, and No murmurs or gallops IMPRESSION: 49yo desires sterilization and IUD - Liletta for menstrual regulation - h/o AUB and dysmenorrhea PLAN: Laparoscopic Bilateral salpingectomy and IUD removal and reinsertion with Liletta Pt has been counseled on risks/benefits and alternatives of surgery including but not limited to anesthesia, bleeding, infection, injury to pelvic structures including bowel, bladder, ureters and vessels. Pt wishes to proceed with surgery at this time. Pre and post op instructions reviewed I have reviewed and updated past medical and surgical history, medications and allergies Yasmin Jackson MD [facility] CNOVon 04-21-2024 CNOV Office Visit (OBGYWM ) ANNANICOLASA Fournier ([id number]) 1975 F Date Time Provider Department 04/21/24 3:20 PM YASMIN KEE OBGYWM During your visit today, we recorded the following information about you: Blood pressure Weight 124/80 88 kg Yasmin Kee MD 04/21/2024 4:56 PM Signed Nicolasa Canoman is a 49 year old female who presents for sterizlation consultation. Pt currently uses mirena and would like to consider Salpingectomy. Pt reports prior to mirena and gastric bypass menses were very irregular. Pt unsure if she wants to continue use of mirena. OB History T0 L0 SAB0 IAB0 Ectopic0 Multiple0 Live Births0 [employer] Make Up Helper History LMP: 07/27/2014, IUD Age at Menarche: Age at First : Age at Menopause: [employer] Make Up Helper History Comments: Sexual Activity: Yes; Male Contraception: I.U.D. PAST MEDICAL HISTORY Diagnosis Date Diabetes (HCC) Dysmetabolic syndrome Gout Hypercholesteremia Hypertension Hypothyroidism PAST SURGICAL HISTORY Procedure Laterality Date ASPIRATIONAND/INJECTIO N GANGLION CYST ANY LOCATJ Right 04/2023 removal cyst MIRENA 03/23/2013 OFFICE LEEP 02/13/2013 Negative PAST SURGICAL HISTORY OF 05/2017 gastric bi [facility] REDUCTION OF LARGE BREAST Bilateral 2020 VAGINOSCOPY 01/14/2013 GILES 3 VAGINOSCOPY 01/06/2014 FAMILY HISTORY Problem Relation Age of Onset Heart Mother Social History Tobacco Use Smoking status: Never Smokeless tobacco: Never Vaping Use Vaping status: Never Used Substance Use Topics Alcohol use: Yes Comment: occasional Drug use: No Current Outpatient Medications Medication Sig buPROPion SR (ZYBAN SR; WELLBUTRIN SR) 150 mg 12 hr tablet Take 1 tablet by mouth once daily. levonorgestrel (MIRENA) 21 mcg/24 hours (8 yrs) 52 mg IUD 1 Each by INTRAUTERINE route one time only. SYNTHROID 88 MCG TAB Take one(1) tablet daily. ALLOPURINOL 100 MG TAB Take one(1) tablet daily. No current facility-administered medications for this visit. Allergies As of Date: 04/21/2024 (No Known Allergies) Fully Assessed 04/21/2024 REVIEW OF SYSTEMS Abdomen: no pain . Expanded ROS: N/A Allergies and current medication updated:Yes SENSITIVE EXAM: Sensitive exam not performed. EXAM: BP 124/80 Wt 194 lb (88.0kg) LMP 07/27/2014 GENERAL: pleasant, female in no apparent distress HEENT: Normocephalic and atraumatic NECK: Supple and full range of motion DERMATOLOGY: Normal, without lesions, non-icteric, and non-hirsute NEURO: alert and oriented x3,exam grossly non-focal EXTREMITIES: normal ASSESSMENT AND PLAN: Assessment AND Plan Sterilization consult -Discussed options- mirena / liletta removal and replacement at same time. Benefits reviewed. Discussed risks of surgery. -OR booking sheet filled out. RTO for pre op I spent a total of 20 minutes on the date of the service which included preparing to see the patient, [id number] patient care, completing clinical documentation, obtaining and/or reviewing separately obtained history, performing a medically appropriate examination, and counseling and educating the patient/family/caregiv er. Yasmin Crouch MD Allergies As of Date: 04/21/2024 (No Known Allergies) Date Reviewed: 04/21/2024 Reviewed by: Manisha Berg MA - Fully Assessed Reason for Visit: Surgery Consult [Other] Primary Visit Diagnosis:Sterilizatio n consult [Z30.09] Prescriptions as of 04/21/2024 - buPROPion SR (ZYBAN SR; WELLBUTRIN SR) 150 mg 12 hr tablet Take 1 tablet by mouth once daily. - levonorgestrel (MIRENA) 21 mcg/24 hours (8 yrs) 52 mg IUD 1 Each by INTRAUTERINE route one time only. - SYNTHROID 88 MCG TAB Take one(1) tablet daily. - ALLOPURINOL 100 MG TAB Take one(1) tablet daily. Problem List As Of Date 04/21/2024 Noted Resolved Irregular menstrual cycle [N92.6] 12/24/2012 DM type 2 (diabetes mellitus, type 2) [E11.9] 12/24/2012 HTN (hypertension) [I10] 12/24/2012 Hypercholesteremia [E78.00] 12/24/2012 Dysmetabolic syndrome [E88.810] 12/24/2012 Hypothyroid [E03.9] 12/24/2012 HSIL (high grade squamous intraepithelial lesio*01/14/2013 GILES III (cervical intraepithelial neoplasia gra*02/13/2013 Encounter Status:Closed by YASMIN JACKSON on 04/21/24 [facility] 09-26-2023 [facility] Telephone (OBGYWM) NICOLASA CASTILLO ([id number]) 1975 F Date Time Provider Department 09/26/23 YASMIN KEE OBGYWM During your visit today, we recorded the following information about you: Pat MarquezMEERA 09/26/2023 4:59 PM Addendum Testosterone and DHEA lab results from [facility] received and to Dr. Jackson to review. Results entered in scanned documents Yasmin Kee MD 09/29/2023 9:19 AM Signed Free testosterone only slightly elevated- 2.84% (normal range 0.5- 2.8%) We checked due to hair loss. Discussed a few things at her appointment- Take Hair supplement, Use minoxidil 2 x daily for women (liquid drops), change to Thinning hair shampoo/conditioner - can try something like GUILHERME D'OR (sell on [employer]) use erik drops, and can use Spironolactone 10 days out of the month. I would also recommend second opinion by Dermatology. Brandy Hinton RN 09/30/2023 9:16 AM Signed Patient notified and voiced understanding. Patient states she will contact office if she would like to see dermatology. Brandy Hinton RN Allergies As of Date: 09/26/2023 (No Known Allergies) Date Reviewed: 09/17/2023 Reviewed by: Brianne Morel MA - Fully Assessed Reason for Visit: Results [95] Prescriptions as of 09/30/2023 - buPROPion SR (ZYBAN SR; WELLBUTRIN SR) 150 mg 12 hr tablet Take 1 tablet by mouth once daily. - levonorgestrel (MIRENA) 21 mcg/24 hours (8 yrs) 52 mg IUD 1 Each by INTRAUTERINE route one time only. - SYNTHROID 88 MCG TAB Take one(1) tablet daily. - ALLOPURINOL 100 MG TAB Take one(1) tablet daily. Problem List As Of Date 09/26/2023 Noted Resolved Irregular menstrual cycle [N92.6] 12/24/2012 DM type 2 (diabetes mellitus, type 2) [E11.9] 12/24/2012 HTN (hypertension) [I10] 12/24/2012 Hypercholesteremia [E78.00] 12/24/2012 Dysmetabolic syndrome [E88.810] 12/24/2012 Hypothyroid [E03.9] 12/24/2012 HSIL (high grade squamous intraepithelial lesio*01/14/2013 GILES III (cervical intraepithelial neoplasia gra*02/13/2013 Encounter Status:Closed by BRANDY HINTON on 09/30/23 Normal [facility] CNOVon 09-17-2023 CNOV Office Visit (OBGYWM ) NICOLASA CASTILLO ([id number]) 1975 F Date Time Provider Department 09/17/23 8:40 AM YASMIN KEE OBGYWM During your visit today, we recorded the following information about you: Blood pressure Weight Height 110/66 81.6 kg 1.71 m Yasmin Kee MD 09/17/2023 9:20 AM Signed Rn Intake offered: Patient declines. Baldwin is a 48 year old who presents for an annual gynecologic exam without complaints. Hair loss not getting worse, but no improvement- gets electrolysis for facial hair. Menses: no menses - Mirena IUD. Contraception: IUD HPV vaccine: No Last Pap: 05/29/2021 normal HPV: 05/26/2021 negative History of abnormal pap: Yes 2013 Last mammogram: 2023normal Sexually active: Yes History of STDS: None Patient concerns for STD exposure: No. Pain with intercourse: No Postcoital bleeding: No Hot flashes: Occasional Night sweats: No Vaginal dryness: No Exercise:Active with work Diet: tries OB History T0 L0 SAB0 IAB0 Ectopic0 Multiple0 Live Births0 [employer] Make Up Helper History LMP: 07/27/2014, IUD Age at Menarche: Age at First : Age at Menopause: [employer] Make Up Helper History Comments: Sexual Activity: Yes; Male Contraception: I.U.D. PAST MEDICAL HISTORY Diagnosis Date Diabetes (HCC) Dysmetabolic syndrome Gout Hypercholesteremia Hypertension Hypothyroidism PAST SURGICAL HISTORY Procedure Laterality Date ASPIRATIONAND/INJECTIO N GANGLION CYST ANY LOCATJ Right 04/2023 removal cyst MIRENA 03/23/2013 OFFICE LEEP 02/13/2013 Negative PAST [...] Allergies and current medication updated:Yes EXAM: BP 110/66 Ht 5' 7.323 (1.71m) Wt 180 lb (81.6kg) LMP 07/27/2014 BMI 27.92 kg/(m2). GENERAL: pleasant, female in no apparent distress HEENT: Normocephalic, atraumatic, mucus membranes moist, and no lesions NECK: Supple, full range of motion, no adenopathy, and thyroid normal DERMATOLOGY: Normal, without lesions, non-icteric, and + hirsute- male pattern hair loss BREAST: soft, non-tender, symmetric, no dominant mass, normal nipple-areolar complex, no lymphadenopathy, and no nipple discharge ABDOMEN: soft, non-tender, and no masses PELVIC: external genitalia normal, normal Bartholin's glands, urethra, Lincolnia's glands, no vulvar lesions, no cervical lesions, good vaginal support, physiologic discharge present, normal appearing perineal body and perianal region +IUD strings BIMANUAL: uterus normal size, shape and consistency, no adnexal masses, and non-tender RECTOVAGINAL: deferred. NEURO: alert and oriented x3,exam grossly non-focal EXTREMITIES: normal ASSESSMENT/PLAN: 1) Health maintenance: Pap/HPV up to date. Mammogram up to date [facility] Nutrition, exercise and routine health maintenance exams reviewed. Calcium/Vitamin D supplementation information provided. Colon cancer screening: DECLINES cologaurd and colonoscopy 2) Contraception: IUD. Contraceptive options reviewed and information provided. 3) STD screening: Declined STD check. 4) Follow up one year or sooner as needed 5) Dheas and Testosterone ordered at [facility] Yasmin Crouch MD Referring Provider: YASMIN KEE [[id number]] Allergies As of Date: 09/17/2023 (No Known Allergies) Date Reviewed: 09/17/2023 Reviewed by: Brianne Morel MA - Fully Assessed Reason for Visit: Yearly Exam [187] Primary Visit Diagnosis:Encounter for gynecological examination (general) (routine) without abnormal findings [Z01.419] Other Visit Diagnoses:Encounter for screening mammogram for breast cancer [Z12.31] Hair loss [L65.9] Hirsutism [L68.0] Order(s):RORY SCREENING W MARISOL [[id number]] Order #: [id number] FUTURE Prescriptions as of 09/17/2023 - buPROPion SR (ZYBAN SR; WELLBUTRIN SR) 150 mg 12 hr tablet Take 1 tablet by mouth once daily. - levonorgestrel (MIRENA) 21 mcg/24 hours (8 yrs) 52 mg IUD 1 Each by INTRAUTERINE route one time only. - SYNTHROID 88 MCG TAB Take one(1) tablet daily. - ALLOPURINOL 100 MG TAB Take one(1) tablet daily. Problem List As Of Date 0 (more content not included)... Normal [facility] Laboratory - Chemistry and C hemistry - challengeOrdered By: Jan Daniel on 04-18-2023 HCG ( test) Ql (U) Negative [facility] Comment on above: Very dilute urine sp ecimens, as indicated by a low specificgravity, may not contain data entry representative levels of hCG. If is still suspected, a first morning urinespecimen should be collected 48 hours later and tested. Basophil percentageOrdered B y: Florian Johns on 02-22-2023 Chloride [Moles/Vol] 106 mmol/L 98-107 [facility] Cholesterol [Mass/Vol] 210 mg/dL <200 [facility] Comment on above: <200 mg/dL Desirable 200-240 mg/dL Borderline >240 mg/dL High Risk Glucose [Mass/Vol] 92 mg/dL 74-106 [facility] Potassium [Moles/Vol] 3.6 mmol/L 3.5-5.1 [facility] Sodium [Moles/Vol] 139 mmol/L 136-145 [facility] Triglyceride [Mass/Vol] 75 mg/dL <199 [facility] Comment on above: The drugs N-Acetylcy steine and Metamizole may falsely depress this assay.Serum Triglycerides Reference Interval Normal <150 mg/dL Borderline high 150 - 199 mg/dL High 200 - 499 mg/dL Very High > or = 500 mg/dL Laboratory - Chemistry and C hemistry - challengeOrdered By: Florian Johns on 02-22-2023 CO2 [Moles/Vol] 29.0 mmol/L 21.0-32.0 [facility] Free T4 [Mass/Vol] 0.92 ng/dL 0.76-1.46 [facility] Urea nitrogen/Creatinine [Mass ratio] 19.5 mg/mg 10-20 [facility] No Panel InformationOrdered By: Florian Johns on 02-22-2023 Estimated GFR (MDRD) Amer 103 mL/min >60 [facility] Comment on above: GFR Calc Estimated GFR (MDRD) Non-Af Amer 85 mL/min >60 [facility] Comment on above: Non- GFR Calc Free Triiodothyronine (T3) pg/dL 2.3 pg/mL 2.18-3.98 [facility] Thyroid Stimulating Hormone (TSH) 1.32 uIU/mL 0.358-3.74 [facility] Serum or plasma calcium aby urement (mass/volume)Ordered By: Florian Johns on 02-22-2023 Calcium [Mass/Vol] 8.8 mg/dL 8.5-10.1 [facility] Serum or plasma cholesterol in HDL measurement (mass/volume)Ordered By: Florian Johns on 02-22-2023 Cholesterol in HDL [Mass/Vol] 94 mg/dL >40 [facility] Comment on above: The drugs N-Acetylcy steine and Metamizole may falsely depress this assay. Reference Range HDL <40 mg/dL Low HDL Cholesterol HDL >or= 60 mg/dL High HDL Cholesterol Serum or plasma cholesterol in VLDL measurement (mass/volume)Ordered By: Florian Johns on 02-22-2023 Cholesterol in VLDL [Mass/Vol] 15 mg/dL 5-40 [facility] Serum or plasma creatinine m easurement (mass/volume)Ordered By: Florian Johns on 02-22-2023 Creatinine [Mass/Vol] 0.77 mg/dL 0.55-1.02 [facility] Comment on above: The validity of the calculated GFR & GFRAA in patients over 70 years has not been determined. Clinical correlation is essential. Serum or plasma low density lipoprotein (LDL) cholesterol measurement (mass/volume)Ordered By: Florian Johns on 02-22-2023 Cholesterol in LDL [Mass/Vol] 101 mg/dL 0-130 [facility] Serum or plasma urea nitroge n measurement (mass/volume)Ordered By: Florian Johns on 02-22-2023 Urea nitrogen [Mass/Vol] 15 mg/dL 7-18 [facility] Thin prep Papanicolaou smear with manual screeningOrdered By: Florian Johns on 02-22-2023 Thin prep Papanicolaou smear with manual screening 4 5-15 [facility] Absolute lymphocyte countOrd ered By: Dr. Johns on 08-06-2022 Lymphocytes Auto (Unsp spec) [#/Vol] 1.04 10*3/uL 0.83-4.51 [facility] Basophil percentageOrdered B y: Dr. Johns on 08-06-2022 Basophils/100 WBC (Bld) 1.2 % 0-1 [facility] Chloride [Moles/Vol] 106 mmol/L 98-107 [facility] Eosinophils/100 WBC (Bld) 1.8 % 0-5 [facility] Glucose [Mass/Vol] 89 mg/dL 74-106 [facility] Neutrophils (Bld) [#/Vol] 1.8 10*3/uL 2.0-7.7 [facility] Neutrophils/100 WBC (Bld) 53.1 % 47-70 [facility] Potassium [Moles/Vol] 3.8 mmol/L 3.5-5.1 [facility] Sodium [Moles/Vol] 141 mmol/L 136-145 [facility] WBC (Bld) [#/Vol] 3.3 10*3/uL 4.4-11.0 [facility] Blood erythrocytes count (nu mber/volume)Ordered By: Dr. Johns on 08-06-2022 RBC (Bld) [#/Vol] 4.03 10*6/uL 4.2-5.4 [facility] Blood hemoglobin measurement (mass/volume)Ordered By: Dr. Johns on 08-06-2022 Hemoglobin (Bld) [Mass/Vol] 12.5 g/dL 12.0-15.0 [facility] Blood lymphocytes/100 leukoc ytesOrdered By: Dr. Johns on 08-06-2022 Lymphocytes/100 WBC (Bld) 31.5 % 19-41 [facility] Blood monocytes/100 leukocyt esOrdered By: [address] Johns on 08-06-2022 Monocytes/100 WBC (Bld) 12.4 % 0-10 [facility] Blood platelet mean volumeOr dered By: Dr. Johns on 08-06-2022 Platelet mean volume (Bld) [Entitic vol] 10.7 fL 6.2-12.0 [facility] Determination of erythrocyte mean corpuscular volume (MCV)Ordered By: Dr. Johns on 08-06-2022 MCV (RBC) [Entitic vol] 96.8 fL 81-99 W [facility] Hematocrit Auto (Bld) [Volum e fraction]Ordered By: Dr. Johns on 08-06-2022 Hematocrit (Bld) [Volume fraction] 39.0 % 37-47 [facility] Laboratory - Chemistry and C hemistry - challengeOrdered By: Dr. Johns on 08-06-2022 CO2 [Moles/Vol] 29.0 mmol/L 21.0-32.0 [facility] Free T4 [Mass/Vol] 0.99 ng/dL 0.76-1.46 [facility] Urea nitrogen/Creatinine [Mass ratio] 23.1 mg/mg 10-20 [facility] Laboratory - Hematology and Cell countsOrdered By: Dr. Johns on 08-06-2022 Erythrocyte distribution width (RBC) [Entitic vol] 43.7 fL 35.1-43.9 [facility] Erythrocyte distribution width (RBC) [Ratio] 12.2 % 11.6-14.6 [facility] Immature granulocytes/100 WBC (Bld) 0.000 % 0.0-0.9 [facility] Comment on above: IG% - Immature Granu locytes (promyelocytes, myelocytes and metamyelocytes) > 1% indicates that a LEFT SHIFT is Present. MCH (RBC) [Entitic mass] 31.0 pg 27.0-32.0 [facility] Nucleated RBC/100 WBC (Bld) [Ratio] 0 % 0-5 [facility] MCHC Auto (RBC) [Mass/Vol]Or dered By: Dr. Johns on 08-06-2022 MCHC (RBC) [Mass/Vol] 32.1 g/dL 32-36 [facility] No Panel InformationOrdered By: Dr. Johns on 08-06-2022 Estimated GFR (MDRD) Amer 137 mL/min >60 [facility] Comment on above: GFR Calc Estimated GFR (MDRD) Non-Af Amer 113 mL/min >60 [facility] Comment on above: Non- GFR Calc Free Triiodothyronine (T3) pg/dL 2.2 pg/mL 2.18-3.98 [facility] Thyroid Stimulating Hormone (TSH) 1.83 uIU/mL 0.358-3.74 [facility] Platelets bldOrdered By: Dr. Johns on 08-06-2022 Platelets (Bld) [#/Vol] 265 10*3/uL 150-450 [facility] Serum or plasma calcium aby urement (mass/volume)Ordered By: Dr. Johns on 08-06-2022 Calcium [Mass/Vol] 9.0 mg/dL 8.5-10.1 [facility] Serum or plasma creatinine m easurement (mass/volume)Ordered By: Dr. Johns on 08-06-2022 Creatinine [Mass/Vol] 0.60 mg/dL 0.55-1.02 [facility] Comment on above: The validity of the calculated GFR & GFRAA in patients over 70 years has not been determined. Clinical correlation is essential. Serum or plasma urea nitroge n measurement (mass/volume)Ordered By: Dr. Johns on 08-06-2022 Urea nitrogen [Mass/Vol] 14 mg/dL 7-18 [facility] Thin prep Papanicolaou smear with manual screeningOrdered By: Dr. Johns on 08-06-2022 Thin prep Papanicolaou smear with manual screening 6 5-15 [facility] No Panel InformationOrdered By: Dr. Johns on 02-07-2022 Thyroid Stimulating Hormone (TSH) 1.20 uIU/mL 0.358-3.74 [facility] Laboratory - Chemistry and C hemistry - challengeon 08-29-2021 Free T4 [Mass/Vol] 1.12 ng/dL 0.76-1.46 [facility] Work Phone: No Panel Informationon 08-29 Free Triiodothyronine (T3) pg/dL 2.6 pg/mL 2.18-3.98 [facility] Work Phone: Thyroid Stimulating Hormone (TSH) 0.56 uIU/mL 0.358-3.74 [facility] Work Phone: Laboratory - Microbiology an d Antimicrobial susceptibilityon 08-04-2021 SARS-CoV-2 (COVID-19) RNA NICKO+probe Ql (Unsp spec) Detected Not Detect [facility] Work Phone: Comment on above: Normal Reference Ran ge: Not DetectedMethod:(RT-PCR) real-time reverse transcriptase PCRLuminex LISA Instrument*The Food and Drug Administration (FDA) has issued an Emergency Use Authorization (EAU) for the LISA SARS-CoV-2 Assay for the rapid detection of the virus that causes COVID-19. This test has been validated, but the FDAs independent review of this validation is pending.*Negative results do not preclude infection and should not be used as the sole basis for treatment or patient management. Optimum specimen types and timing for peak viral levels during infections caused by SARS-CoV-2 have not been determined. Collection of multiple specimens from the same patient may be necessary to detect the virus. The possibility of a false negative result should be considered if the patient has clinical presentation or has had recent exposure. No Panel Informationon 08-04 Respiratory Panel (PCR) W [facility] Work Phone: Basophil percentageon 2021 Testosterone [Mass/Vol] 4 ng/dL W [facility] Work Phone: Free testosterone percentage on 05-23-2021 Testosterone Free/Testosterone.total [Mass fraction] 1.71 % [facility] Work Phone: Comment on above: Performed at: [facility] [id number] [place], [place] [id number] Director: Shyam Kaminski PhD, Phone: [phone] at: [address] [id number] Director: Patricia Washington MD, Phone: [phone] Serum or plasma testosterone free measurement (mass/volume)on 05-23-2021 Testosterone Free [Mass/Vol] 0.07 ng/dL [facility] Work Phone: Laboratory - Microbiology an d Antimicrobial susceptibilityon 05-17-2021 SARS-CoV-2 (COVID-19) RNA NICKO+probe Ql (Unsp spec) Not detected Not Detect [facility] Work Phone: Comment on above: Normal Reference Ran ge: Not DetectedMethod:(RT-PCR) real-time reverse transcriptase PCRLuminex LISA Instrument*The Food and Drug Administration (FDA) has issued an Emergency Use Authorization (EAU) for the LISA SARS-CoV-2 Assay for the rapid detection of the virus that causes COVID-19. This test has been validated, but the FDAs independent review of this validation is pending.*Negative results do not preclude infection and should not be used as the sole basis for treatment or patient management. Optimum specimen types and timing for peak viral levels during infections caused by SARS-CoV-2 have not been determined. Collection of multiple specimens from the same patient may be necessary to detect the virus. The possibility of a false negative result should be considered if the patient has clinical presentation or has had recent exposure. POCT GLUCOSEon 06-13-2017 Glucose mass conc 109 mg/dL High 65-99 [facility] Comment on above: Performed By: #### P LT ####Main [email or web address] [id number] [place] [address] Glucose mass conc 98 mg/dL Normal 65-99 [facility] [employer] [facility] Comment on above: Performed By: #### P LT ####Main LaboratoryLake [address]ft[address] [place] [address] Glucose mass conc 99 mg/dL Normal 65-99 [facility] Comment on above: Performed By: #### P CGL ####[facility] [id number] [place] [address] POCT GLUCOSEon 06-12-2017 Glucose mass conc 95 mg/dL Normal 65-99 [facility] Comment on above: Performed By: #### P CGL ####[facility] [address] [place] [address] Glucose mass conc 81 mg/dL Normal 65-99 [facility] Comment on above: Performed By: #### P CGL ####[facility] [address] [place] [address] Glucose mass conc 111 mg/dL High 65-99 [facility] Comment on above: Performed By: #### P CGL ####[facility] [address] [place] [address] Glucose mass conc 93 mg/dL Normal 65-99 [facility] Comment on above: Performed By: #### P CGL ####[facility] [address] [place] [address] Glucose mass conc 81 mg/dL Normal 65-99 [facility] Comment on above: Performed By: #### P CGL ####[facility] [address] [place] [address] UGI W KUBon 06-12-2017 UGI W KUB *FINAL Da te of Service: 06/12/2017 08:32 Adm #: [id number] Dr:IKTTY DEE Signoff Dr: KITTY DEEPROCEDURE: UGI W KUB - WXR 0132REASON FOR EXAM: Post Laparoscopic Gastric Bypass RESULT: CLINICAL HISTORY: Post gastric bypass COMPARISON: None available TECHNIQUE: Multiple fluoroscopic spot images were obtained during a Omnipaque contrast upper GI with KUB. Total fluoroscopy time: 55 Seconds, images: 25, DAP: 115.5 mGy FINDINGS:KUB shows multiple surgical clips in left upper quadrant, nonobstructive bowel gas pattern and clear lung bases. There is prompt esophageal transit. Small gastric pouch with patent gastrojejunostomy and no evidence for leak. IMPRESSION:Normal postop exam. This report has been produced using speech recognition. Original Interpreting Physician: KITTY DEE MDOriginal Transcribed by/Date: PSCB Jun 14 2017 10:58AOriginal Electronically Signed by/Date: KITTY DEE MD Jun 14 2017 10:58A Addendum Interpreting Physician: Addendum Transcribed by/Date: NO ADDENDUMAddendum Electronically Signed by/Date: Normal [facility] Consulton 06-11-2017 Consult Normal [facility] Discharge Summaryon 06-12-19 18 Discharge Summary Normal [facility] Operative Reporton 8 Operative Report Normal [facility] PLATELETon 06-11-2017 Platelets Normal 150-450 [facility] Comment on above: Result Comment: 280P erformed at [facility] [address] [facility] [place] [address] Performed By: #### P LT ####[facility] LaboratoryLaOnslow Memorial HospitalLutg[address] [place] [address] POCT GLUCOSEon 06-11-2017 Glucose mass conc 144 mg/dL High 65-99 [facility] Comment on above: Performed By: #### P CGL ####[place] [address] [place] [address] Glucose mass conc 145 mg/dL High 65-99 [facility] Comment on above: Performed By: #### P CGL ####[facility] [facility] [address] Glucose mass conc 112 mg/dL High 65-99 [facility] Comment on above: Performed By: #### P CGL ####[place] [address] [place] [address] Vital Signs Date Time Vital Sign Value Performing Clinician Faci lity 07-03-2024 11:15-0400 Body temperature 98.3 [degF] Dr. Florian Johns MD Work Phone: [facility] 07-03-2024 11:15-0400 Diastolic blood pressure 74 mm[Hg] Dr. Florian Johns MD Work Phone: [facility] 07-03-2024 11:15-0400 Heart rate 68 /min Dr. Florian Johns MD Work Phone: [facility] 07-03-2024 11:15-0400 Respiratory rate 16 /min Dr. Florian Johns MD Work Phone: [facility] 07-03-2024 11:15-0400 SaO2% (BldA) [Mass fraction] 100 % Dr. Florian Johns MD Work Phone: [facility] 07-03-2024 11:15-0400 Systolic blood pressure 120 mm[Hg] Dr. Florian Johns MD Work Phone: [facility] 07-03-2024 07:11-0400 Body height 170.[address] Florian Johns MD Work Phone: [facility] 07-03-2024 07:11-0400 Body mass index (BMI) [Ratio] 30.8 kg/m2 Dr. Florian Johns MD Work Phone: [facility] 07-03-2024 07:11-0400 Body weight 89.[address] Florian Johns MD Work Phone: [facility] 06-09-2024 16:11-0400 Body height 170.2 cm Yasmin Jackson MD Work Phone: [facility] 06-09-2024 16:11-0400 Body mass index (BMI) [Ratio] 31.01 kg/m2 Yasmin Jackson MD Work Phone: [facility] 06-09-2024 16:11-0400 Body weight 89.81 kg Yasmin Jackson MD Work Phone: [facility] 06-09-2024 16:11-0400 Diastolic blood pressure 72 mm[Hg] Yasmin Jackson MD Work Phone: [facility] 06-09-2024 16:11-0400 Systolic blood pressure 134 mm[Hg] Yasmin Jackson MD Work Phone: [facility] 04-21-2024 15:19-0500 Body mass index (BMI) [Ratio] 30.09 kg/m2 Yasmin Jackson MD Work Phone: [facility] 04-21-2024 15:19-0500 Body weight 88 kg Yasmin Jackson MD Work Phone: [facility] 04-21-2024 15:19-0500 Diastolic blood pressure 80 mm[Hg] Yasmin Jackson MD Work Phone: [facility] 04-21-2024 15:19-0500 Systolic blood pressure 124 mm[Hg] Yasmin Jackson MD Work Phone: [facility] 04-18-2023 17:10-0500 Body temperature 97.7 [degF] [facility] 04-18-2023 17:10-0500 Diastolic blood pressure 73 mm[Hg] [facility] 04-18-2023 17:10-0500 Heart rate 59 /min [facility] 04-18-2023 17:10-0500 Respiratory rate 16 /min [facility] 04-18-2023 17:10-0500 SaO2% (BldA) [Mass fraction] 100 % [facility] 04-18-2023 17:10-0500 Systolic blood pressure 125 mm[Hg] [facility] 04-18-2023 13:55-0500 Body height 172.72 cm [facility] 04-18-2023 13:55-0500 Body mass index (BMI) [Ratio] 27.3 kg/m2 [facility] 04-18-2023 13:55-0500 Body weight 81.4 kg [facility] 06-18-2022 15:47-0400 Body height 172.7 cm Yasmin Jackson MD Work Phone: [facility] 06-18-2022 15:47-0400 Body weight 82.37 kg Yasmin Jackson MD Work Phone: [facility] 06-18-2022 15:47-0400 Diastolic blood pressure 74 mm[Hg] Yasmin Jackson MD Work Phone: [facility] 06-18-2022 15:47-0400 Systolic blood pressure 120 mm[Hg] Yasmin Jackson MD Work Phone: [facility] Encounters Encounter Date Encounter Type Care Provider Facility Start: 09-22-2024 ambulatory Florian Johns Facility:[facility] Start: 07-27-2024 End: 07-27-2024 ambulatory Florian Johns Facility:[facility] Start: 07-09-2024 End: 07-09-2024 Telephone encounter Yasmin Jackson MD Work Phone: OB/Gynecology Start: 07-03-2024 End: 07-03-2024 Admission to same day surgery center Dr Yasmin Crouch MD -[facility] Start: 07-03-2024 End: 07-03-[address] Florian Johns MD Work Phone: [facility] Work Phone: Start: 06-09-2024 End: 06-09-2024 ambulatory YASMIN JACKSON Facility:[facility] Start: 06-09-2024 End: 06-09-2024 Patient encounter procedure Yasmin Jackson MD Work Phone: OB/Gynecology Comment on above: Sterilization consul t (Primary Dx); Abnormal uterine bleeding (AUB); Dysmenorrhea; Pre-op exam Start: 06-09-2024 End: 06-09-2024 Preprocedural examination done Yasmin Jackosn MD Work Phone: [facility] Start: 06-03-2024 End: 06-03-2024 Admission to same day surgery center Yasmin Jackson MD Work Phone: OB/Gynecology Comment on above: surgery confirmation Start: 06-03-2024 End: 06-03-2024 E-mail encounter from caregiver Yasmin Jackson MD Work Phone: OB/Gynecology Start: 04-21-2024 End: 04-21-2024 ambulatory YASMIN JACKSON Facility:[facility] Start: 04-21-2024 End: 04-21-2024 Patient encounter procedure Yasmin Jackson MD Work Phone: OB/Gynecology Comment on above: Sterilization consul t (Primary Dx) Start: 04-08-2024 End: 04-09-2024 ambulatory Yasmin Jackson MD Work Phone: OB/Gynecology Comment on above: Question on Tubal Li gation Start: 09-26-2023 Telephone encounter Yasmin Jackson MD Work Phone: OB/Gynecology Comment on above: Results Start: 09-17-2023 End: 09-17-2023 ambulatory LUIS E CHI JOHN Facility:[facility] Start: 04-18-2023 End: 04-18-2023 Admission to same day surgery center [facility] Start: 04-18-2023 End: 04-18-2023 ambulatory [facility] Work Phone: Start: 02-22-2023 End: 02-22-2023 ambulatory [facility] Work Phone: Start: 02-22-2023 End: 02-22-2023 Patient encounter procedure [facility] Work Phone: Start: 08-06-2022 End: 08-06-[address] Florian Johns Work Phone: [facility] Work Phone: Start: 08-06-2022 End: 08-06-[address] Florian Johns [facility] Phone[facility] Start: 06-27-2022 End: 06-27-[address] Florian Johns Work Phone: [facility] Work Phone: Start: 06-27-2022 End: 06-27-[address] Florian Johns Work Phone: [facility]-Outpatient Breast Imaging Start: 06-18-2022 End: 06-18-2022 Patient encounter procedure Yasmin Jackson MD Work Phone: OB/Gynecology Comment on above: Encounter for gyneco logical examination (general) (routine) without abnormal findings (Primary Dx); Encounter for screening mammogram for breast cancer Start: 06-18-2022 End: 06-18-2022 Patient encounter status Yasmin Jackson MD Work Phone: OB/Gynecology Start: 04-16-2022 Non-patient / Non-visit Dr. Orlin Johns Work Phone: [facility] Start: 04-16-2022 End: 04-16-[address] Florian Johns Work Phone: [facility] Work Phone: Start: 04-16-2022 End: 04-16-[address] Florian Johns Work Phone: [facility]-Pulmonary Services/Neurology Start: 02-07-2022 End: 02-07-2022 ambulatory [facility] Work Phone: Start: 02-07-2022 End: 02-07-2022 [facility] Start: 08-29-2021 End: 08-29-2021 Patient encounter procedure [facility] Start: 08-04-2021 End: 08-04-2021 Patient encounter procedure [facility]Labor[facility], Specimen Start: 05-23-2021 End: 05-23-2021 Patient encounter procedure [facility] Start: 05-17-2021 End: 05-17-2021 Patient encounter procedure [facility]Labor[facility], Specimen Start: 06-11-2017 End: 06-13-2017 Evaluation and management of inpatient SUNDAR GUARDADO Facility:UNKNOWN Start: 03-18-2017 Patient encounter status [facility] Start: 03-18-[address] Florian giraldo MD Work Phone: [facility] Start: 10-17-2016 [facility] Procedures Date Procedure Procedure Detail Performing Clinician Start: 07-03-[address] Florian Johns MD Work Phone: Start: 04-18-2023 Excision of cyst Start: 06-27-2022 Screening mammography Regine Johns Work Phone: Start: 08-04-2021 Respiratory Panel (PCR) Plan of Treatment Date Care Activity Detail Author Start: 05-23-2026 HPV TESTING HPV TESTING [facility] Start: 05-23-2026 PAP TESTING PAP TESTING [facility] Start: 05-23-2026 Screening for malign ant neoplasm of cervix Cervical Cancer Screening [facility] Start: 10-07-2024 End: 10-07-2024 Patient encounter procedure 10/07/2024 3:20 PM EDT Office Visit OB/Gynecology [address] [place] [address] Yasmin Kee MD [address] [place] [address] Annual, x2 rescheduled OB/Gynecology Comment on above: Annual, x2 reschedul ed Start: 09-18-2024 End: 09-18-2024 Patient encounter procedure 09/18/2024 4:00 PM EDT Office Visit OB/Gynecology [address] [place] [address] Yasmin Kee MD [address] [place] [address] Annual OB/Gynecology Comment on above: Annual Start: 09-16-2024 BP Controlled (<130/80) BP Controlle d (<130/80) [facility] Start: 07-20-2024 End: 07-20-2024 Patient encounter procedure 07/20/2024 4:20 PM EDT Office Visit OB/Gynecology [address] [address] Yasmin Kee MD [address] [place] [place] [address] post op 07/03 OB/Gynecology Comment on above: post op 07/03 Start: 07-03-2024 Patient discharge [facility] Start: 07-03-2024 Procedure discontinued [facility] Start: 07-03-2024 Ambulation without limitation [facility] Start: 07-03-2024 Medical regimen orde rs management [facility] Start: 07-03-2024 Medication education [facility] Start: 07-03-2024 Taking patient vital signs [facility] Start: 07-03-2024 Vital signs measurements [facility] Start: 07-03-2024 [facility] Start: 06-09-2024 End: 06-09-2024 Patient encounter procedure 06/09/2024 4:20 PM EDT Office Visit OB/Gynecology [address] [address] Yasmin Kee MD [address] [place] [address] surgery 07/03 OB/Gynecology Comment on above: surgery 07/03 Start: 04-21-2024 End: 04-21-2024 Patient encounter procedure 04/21/2024 3:20 PM EST Office Visit OB/Gynecology [address] [place] [address] Yasmin Kee MD [address] [place] [address] Consult for bilateral salpingectomy OB/Gynecology Comment on above: Consult for bilatera l salpingectomy Start: 12-01-2023 Covid-19 Vaccine ( season) Covid-19 Vaccine ( season) [facility] Start: 12-01-2023 Influenza vaccination Influenza Vacc ine (#1) [facility] Start: 06-28-2023 Screening for malign ant neoplasm of breast Mammogram Screening [facility] Start: 06-19-2023 BP CONTROLLED (<130/80) BP CONTROLLE D (<130/80) [facility] Start: 04-18-2023 Patient discharge [facility] Start: 04-18-2023 Ambulation without limitation [facility] Start: 04-18-2023 Application of ice collar, cap or bag [facility] Start: 04-18-2023 Application of intermittent pneumatic compression device [facility] Start: 04-18-2023 Catheterization of vein [facility] Start: 04-18-2023 Elevation of affecte d extremity [facility] Start: 04-18-2023 Following clinical pathway protocol [facility] Start: 04-18-2023 Medical regimen orde rs management [facility] Start: 04-18-2023 Procedure discontinued [facility] Start: 04-18-2023 Taking patient vital signs [facility] Start: 04-18-2023 Vital signs measurements [facility] Start: 04-18-2023 Wound care [facility] Start: 04-18-2023 [facility] Start: 04-18-2023 Medication education [facility] Start: 04-01-2023 Behavioral Health Screening Behavioral Health Screening [facility] Start: 11-30-2022 Covid-19 Vaccine ( season) Covid-19 Vaccine () [facility] Start: 04-01-2022 DEPRESSION ASSESSMENT DEPRESSION ASS ESSMENT [facility] Start: 11-30-2021 Influenza vaccination INFLUENZA (#1) [facility] Start: 2021 COLOGUARD (FIT-DNA) COLOGUARD (FIT-D NA) [facility] Start: 2021 Colonoscopy COLONOSCOPY [facility] [facility] Start: 2021 COLORECTAL CANCER SCREENING COLORECTAL CANCER SCREENING [facility] Start: [address] COLONOGRAPHY [facility] Start: 2021 FECAL OCCULT BLOOD FECAL OCCULT BLOO D [facility] Start: 2021 Screening for malign ant neoplasm of colon [facility] Start: 2021 SIGMOIDOSCOPY SIGMOIDOSCOPY [facility] Start: 2016 Mammography MAMMOGRAM [facility] Start: 1995 Hepatitis B Vaccine (1 of 3 - 19+ 3-dose series) Hepatitis B Vaccine (1 of 3 - 19+ 3-dose series) [facility] Start: 1995 Pneumococcal vaccination Pneum ococcal Vaccine (1 of 2 - PCV) [facility] Start: 1995 Urine microalbumin profile [facility] Start: 1994 ANNUAL PCP TEAM DATABASE MANAGER ALMA ROSA DISEASE VISIT ANNUAL PCP TEAM CHRONIC DISEASE VISIT [facility] Start: 1994 Anxiety Screening Anxiety Screening [facility] Start: 1994 BP Controlled (<130/80) BP Controlle d (<130/80) [facility] Start: 1994 Depression Screening Depression Scre ening [facility] Start: 1994 Hepatitis B surface antibody level LDL CHOLESTEROL [facility] Start: 1994 HEPATITIS C SCREENING HEPATITIS C [facility] Start: 1994 Hepatitis C screening Hepatitis C [facility] Start: 1994 HIV SCREENING HIV SCREENING [facility] Start: 1994 HIV screening HIV Screening [facility] Start: 1986 3 comp foot exam completed DIABETIC FOOT EXAM [facility] Start: 1986 Diabetic foot examination Diabetic F oot Exam [facility] Start: 1986 Glaucoma screening Dilated Retinal E xam [facility] Start: 1986 Hepatitis B screening URINE ALBUMIN:CREATININE RATIO [facility] Start: 1986 Hepatitis C antibody , confirmatory test DILATED RETINAL EXAM [facility] Start: 1982 PNEUMOCOCCAL (1 - PCV) PNEUMOCOCCAL (1 - PCV) [facility] Start: 1982 Pneumococcal vaccination Pneum ococcal Vaccine (1 of 2 - PCV) [facility] Start: 1981 Hemoglobin A1c measurement HbA1C [facility] Start: 1981 Hemoglobin A1c/Hemoglobin.total in Blood HBA1C [facility] Start: 1976 COVID-19 VACCINE (#1) COVID-19 VACCI NE (#1) [facility] Start: 1976 HEPATITIS B (1 of 3 - 3-dose series) HEPATITIS B (1 of 3 - 3-dose series) [facility] End: 07-18-2023 RORY SCREENING RORY SCREENING Radiology Routine Encounter for screening mammogram for breast cancer 1 Occurrences starting 06/18/2022 until 07/18/2023 [facility] Work Phone: Comment on above: 1 Occurrences starti ng 06/18/2022 until 07/18/2023 Patient referral [facility] Work Phone: [facility] c Immunizations Immunization Date Immunization Notes Care Provider Fa cility 02-02-2020 influenza virus vacc ine, unspecified formulation Yasmin Jackson MD Work Phone: [facility] Payers Date Payer Category Payer Self-pay [id number] 2022 Private Health Insurance [id number] 2022 Unknown [id number] 2013 Unknown [id number] Unknown [id number] Unknown [id number] Unknown [id number] Social History Date Type Detail Facility Start: 04-30-2020 End: 04-08-2023 Tobacco smoking status NHIS Unknown if ever smoked [facility] Start: 1975 Sex Assigned At Female W [facility] Start: 12-24-2012 End: 06-10-2024 Tobacco smoking status NHIS Never smoked tobacco [facility] Start: 12-24-2012 Tobacco use and exposure Smokeless tobacco non-user [facility] Start: 06-18-2022 End: 07-03-2024 Alcohol intake Current drinker of alcohol (finding) [facility] Start: 12-24-2012 Alcohol Comment occasional [facility] Start: 09-17-2023 End: 06-09-2024 History of Social function [facility] Start: 09-17-2023 End: 06-09-2024 Tobacco use panel [facility] National Score (1-100), lower number is lower risk 80 [facility] Start: 04-04-2021 Gender identity Identifies as female gender (finding) [facility] Start: 04-04-2021 Sexual orientation Heterosexual (fin ding) [facility] Start: 07-03-2024 Sex Female (finding) [facility] NEGATED: Highlighted row Not [facility] Medical Equipment Procedure Code Equipment Code Equipment Origin al Text Equipment Identifier Dates Breast reduction AMNIOFILL,500MG FDA Sta rt: 02-22-2020 Breast reduction RASHAWN 3GRM HEMOSTAT ABS FDA Start: 02-22-2020 Breast reduction RASHAWN 3GRM HEMOSTAT ABS FDA Start: 02-22-2020 Breast reduction AMNIOFILL,500MG FDA Sta rt: 02-22-2020 Breast reduction RASHAWN 3GRM HEMOSTAT ABS FDA Start: 02-22-2020 Breast reduction RASHAWN 3GRM HEMOSTAT ABS FDA Start: 02-22-2020 Breast reduction AMNIOFILL,500MG FDA Sta rt: 02-22-2020 Breast reduction RASHAWN 3GRM HEMOSTAT ABS FDA Start: 02-22-2020 Breast reduction RASHAWN 3GRM HEMOSTAT ABS FDA Start: 02-22-2020 Breast reduction AMNIOFILL,500MG FDA Sta rt: 02-22-2020 Breast reduction RASHAWN 3GRM HEMOSTAT ABS FDA Start: 02-22-2020 Breast reduction RASHAWN 3GRM HEMOSTAT ABS FDA Start: 02-22-2020 Breast reduction AMNIOFILL,500MG FDA Sta rt: 02-22-2020 Breast reduction RASHAWN 3GRM HEMOSTAT ABS FDA Start: 02-22-2020 Breast reduction RASHAWN 3GRM HEMOSTAT ABS FDA Start: 02-22-2020 Breast reduction AMNIOFILL,500MG FDA Sta rt: 02-22-2020 Breast reduction RASHAWN 3GRM HEMOSTAT ABS FDA Start: 02-22-2020 Breast reduction RASHAWN 3GRM HEMOSTAT ABS FDA Start: 02-22-2020 Breast reduction AMNIOFILL,500MG FDA Sta rt: 02-22-2020 Breast reduction RASHAWN 3GRM HEMOSTAT ABS FDA Start: 02-22-2020 Breast reduction RASHAWN 3GRM HEMOSTAT ABS FDA Start: 02-22-2020 Breast reduction AMNIOFILL,500MG FDA Sta rt: 02-22-2020 Breast reduction RASHAWN 3GRM HEMOSTAT ABS FDA Start: 02-22-2020 Breast reduction RASHAWN 3GRM HEMOSTAT ABS FDA Start: 02-22-2020 Breast reduction AMNIOFILL,500MG FDA Sta rt: 02-22-2020 Breast reduction RASHAWN 3GRM HEMOSTAT ABS FDA Start: 02-22-2020 Breast reduction RASHAWN 3GRM HEMOSTAT ABS FDA Start: 02-22-2020 Goals Date Patient Goal Desired Activity /State Functional Status Date Assessment Result Facility 08-06-2014 Are you deaf, or do you have serious difficulty hearing No 08/06/2014 10:59 AM Brandy Rdz, YOLIE No [facility] 08-06-2014 Are you blind, or do you have serious difficulty seeing, even when wearing glasses No 08/06/2014 10:59 AM Brandy Rdz, YOLIE No [facility] 08-06-2014 Do you have serious difficulty walking or climbing stairs No 08/06/2014 10:59 AM Brandy Rdz, YOLIE No [facility] 08-06-2014 Do you have difficul ty dressing or bathing No 08/06/2014 10:59 AM Brandy Rdz, YOLIE [facility] 08-06-2014 Because of a physica l, mental, or emotional condition, do you have difficulty doing errands alone such as visiting a physician's office or shopping No 08/06/2014 10:59 AM Brandy Rdz RN No [facility] Mental Status Date Assessment Result Facility 07-03-2024 Cognitive function Voice/Name [facility] Work Phone: 07-03-2024 Cognitive function Patient Omar damico Person;Place;Time [facility] Work Phone: 04-18-2023 Cognitive function Voice/Name [facility] Work Phone: 08-06-2014 Because of a physica l, mental, or emotional condition, do you have serious difficulty concentrating, remembering, or making decisions No 08/06/2014 10:59 AM EDT Brandy Hinton RN No [facility] Clinical Notes 04-16-2022 to 07-09-2024 Telephone Encounter - Jenn Reynolds RN - 07/09/2024 3:00 PM EDTTelephone Encounter - Jenn Reynolds RN - 07/09/2024 3:00 PM EDT Note Date & Type Note Facility 07-09-2024 Telephone encounter Note Form atting of this note might be different from the original. Pt notified and voiced understanding. Pt states hasn't taken any tylenol since the . Advised Pt that no post-op appt is necessary unless she has questions/concerns. Pt states she currently has one scheduled. Advised Pt that is she has questions/concerns for Dr. Jackson then she should keep scheduled appt, but if not she can call and cancel or cancel on mychart. Pt denies questions/concerns at this time. Jenn Reynolds RN [facility] 07-09-2024 Miscellaneous Notes Formattin g of this note might be different from the original. Pt notified and voiced understanding. Pt states hasn't taken any tylenol since the . Advised Pt that no post-op appt is necessary unless she has questions/concerns. Pt states she currently has one scheduled. Advised Pt that is she has questions/concerns for Dr. Jackson then she should keep scheduled appt, but if not she can call and cancel or cancel on mychart. Pt denies questions/concerns at this time. Jenn Reynolds RN Please notify patient that pathology was benign from lap bilateral salpingectomy. She did have small cyst on one of her tubes that was c/w serous cystadenoma that I removed- nothing further. How is she feeling? No need for post op unless concerns. documented in this encounter [facility] 07-09-2024 Telephone encounter Note Form atting of this note might be different from the original. Please notify patient that pathology was benign from lap bilateral salpingectomy. She did have small cyst on one of her tubes that was c/w serous cystadenoma that I removed- nothing further. How is she feeling? No need for post op unless concerns. [facility] 07-03-2024 Consult note [facility] 07-03-2024 Consult note Note Date/Time July 03, 2024 9:33am [facility] Medical Records Department [address] [place] [address] Anesthesia Postop Eval I 07/03/2431 MR#: [id number] Acct: [id number] Name: NICOLASA CASTILLO Rep #:[id number] : 1975 49 From: Tamela Desai CRNA PCP: Dr. Folrian Johns MD Status:REG S DC Y Race: C Location: [place] [address] Anesthesia: Postop Eval I Current Vital Signs Temperature: 97 F Pulse Rate: 88 Blood Pressure: 135/99 Respiratory Rate: 18 Pulse Ox: 97 Oxygen Delivery Method: Room Air Assessment Airway patent: Yes Spontaneous unlabored respirations: Yes Mental status: Awake nausea: No Vomiting: No Anesthesia Complication: No Fluid Hydration Crystalloid volume administer (ml): 1,000 Total IV fluid infused: 1,000 Progress Note Anesthesia document: Postop Eval 1 completed: Yes 07/03/24 0933 <Electronically signed by Tamela medeiros CRNA> Date _ Tamela Desai CRNA Cosigner Signature: Date CC: ~ Signed [facility] Work Phone: 1(994) 699-530704-04-2025 Discharge summary Author Yasmin Panda [facility] Note Date/Time July 03, 2024 8:24 am [facility] Medical Records Department [address] [place] [address] Instructions for Home/Discharge Instructions 07/03/24822 MR#: [id number] Acct: [id number] Name: NICOLASA CASTILLO Rep #:[id number] : 1975 49 From: Yasmin Jackson MD PCP: Dr. Florian Johns MD Status:REG S DC Discharge Instructions Diet Discharge Diet: No restrictions DC O2, CPAP, BIPAP needs Home O2 Discharge instructions: No Dressing / Incision May resume sexual activity in: 1 week Lifting Restrictions: 20-25 lbs Dressing / Incision Call your doctor if your incision/area has: Continuous Slow Oozing, Sudden Increased Bleeding, Increased Pain/ Swelling, Increased Redness, Foul Smelling Discharge and Swelling at the incision site Call your doctor if you observe: Fever of 101 or Higher, Inability to urinate, Inability to have a bowel movement, Using more than 1 pad per hour and Uncontrolled pain Additional Dressing/Incision Instructions:: You have skin glue over your incision sites, do not pick off. You may shower and let the soap and water run over the incision sites and dab dry. Follow Up Care Please Follow Up With: Yasmin Crouch MD When: 1-2 weeks post OP if you need an appointment please call [phone] Test Results: Test results from this visit will be discussed in further detail at your follow- up appointment, if applicable. Discharge Plan Admission Attending Provider: Yasmin Crouch Primary Care Provider: Florian Johns Instructions Print Language: Solomon Islander Discharge Orders/Prescriptions Prescriptions: No Action levothyroxine 88 MCG tablet 88 mcg PO DAILY allopurinol 100 mg tablet 100 mg PO DAILY bupropion HCl 300 mg tablet extended release 24 hr 300 mg PO DAILY meloxicam 15 mg tablet 15 mg PO DAILY gabapentin 300 mg capsule 300 mg PO QHS Referrals / Follow Up: Florian Johns MD [Primary Care Provider] - Disposition Disposition (needs filled in before D/C Order can be placed): Home, Self Care 07/03/24823<Electronically signed by Yasmin Crouch MD>Yasmin Crouch MD CC: Dr. Florian Johns MD ~ Signed [facility] Work Phone: 1(540) 759-365604-04-2025 Consult note Author Kaushal Leonardo [facility] Note Date/Time July 03, 2024 7:53 am [facility] Medical Records Department [address] [place] [address] Pre-Anesthesia Evaluation 07/03/24 0747 MR#: [id number] Acct: [id number] Name: NICOLASA CASTILLO Rep #:[id number] : 1975 49 From: Kaushal Leonardo MD PCP: Dr. Florian Johns MD Status:REG S DC Y Race: C Location: [place] [address] ASA Classification* ASA Classification ASA Classification: 2 Assessment & Plan Anesthesia* Anesthesia Assessment Anesthesia Assessment: Discussed sedation and/or anesthesia options, risks, benefits, and alternatives with patient/parents/legal guardian/POA. Questions invited. The patient/parents/legal guardian/POA seems to understand and agrees to proceedwith anesthesia plan. Reviewed the physical assessment, medical history, allergy history and patient home medications list prior to surgery/procedure/anesthetic and documented any changes. Performed airway and anesthesia risk assessments. Anesthesia Type Anesthesia Type: General History Source History Obtained from:: Patient and Chart Anesthesia Focused Assessment* Temperature: 98.0 F Pulse Rate: 78 Blood Pressure: 136/76 Respiratory Rate: 16 Pulse Ox: 97 Oxygen Delivery Method: Room Air Airway Assessment Mouth opens: >3 cm Mallampati Score: II Teeth Condition: Intact Neck Range of motion (ROM): Full ROM Focused Labs Anesthesia Preop lab: CBC WBC 3.9 K/mm3 (4.4-11.0) L 07/03/24 07:07/03/24 RBC 3.76 M/mm3 (4.2-5.4) L 07/03/24 07:20 07/03/24 Hgb 11.0 g/dL (12.0-15.0) L 07/03/24 07: 5 Hct 33.4 % (37-47) L 07/03/24 07:25 Plt Count 246 K/mm3 (150-450) 07/03/24 07:20 07/03/24 CHEMISTRY Potassium 3.6 mmol/L (3.5-5.1) 09/20/23 07:38 09/20/23 Sodium 138 mmol/L (136-145) 09/20/23 07:38 09/20/23 BUN 15 mg/dL (7-18) 09/20/23 07:38 09/20/23 Creatinine 0.88 mg/dL (0.55-1.02) 09/20/23 07:38 09/20/23 Glucose 92 mg/dL (74-106) 09/20/23 07:38 09/20/23 POC Glucose 85 mg/dL (70-110) 02/23/20 11:22 02/23/20 TSH 1.47 uIU/mL (0.358-3.74) 09/20/23 07:38 COAG PT 12.7 SECONDS (11.7-14.9) 02/22/20 07:13 Urine Test Negative Negative 07/03/24 07:00 07/03/24 Pre-Assessment Diagnosis/Proposed Procedure Planned Operative Procedure(s): LAP SALPINGECTOMY BILAT,REMOVAL MIRENA IUD INSERTION OF LILETTA IUD Anesthesia History Anesthesia History - dye colorist formulator: Anesthesia History - dye colorist formulator Hx Hospitalization No 06/10/24 08:11 Any Problems With Anesthesia No 06/10/24 08:11 Cholinesterase deficiency No 06/10/24 08:11 You/Your Family Experience No 06/10/24 08:11 fever (hyperthermia) with Relationship Recent Exposure to Contagious No 07/03/24 07:09 Disease Does patient have nerve No 06/10/24 08:11 stimulator Patient instructed to have device shut off --Does patient have Pacemaker No 07/03/24 07:11 or ICD? When Was Last Pacemaker Check QUESTION #4 FULL TEXT: You/Your Family Experience fever (hyperthermia) with Anesthesia Last Oral Intake Last Oral intake: Last Oral Intake NPO since 00:00 07/03/24 07:11 Meds taken in AM with sips of No 07/03/24 07:11 water? Meds patient instructed to take am of surgery PONV PONV - dye colorist formulator: PONV - dye colorist formulator Female Yes 06/10/24 08:11 HX of Motion Sickness Yes 06/10/24 08:11 HX of N/V After Surgery No 06/10/24 08:11 Non-Smoker Yes 06/10/24 08:11 Duration of Surgery greater No 06/10/24 08:11 than 60 minutes Number of Risk Factors 3 06/10/24 08:11 PONV Score Moderate Risk 06/10/24 08:11 Height & Weight Height & Weight: Anesthesia: Height & Weight Height 5 ft 7 in 07/03/24 07:11 Weight: 89.358 kg 07/03/24 07:11 Body Mass Index (BMI) 30.8 07/03/24 07:11 Respiratory Assessment Respiratory Assessment - dye colorist formulator: Respiratory Tract Infection Hx - dye colorist formulator Hx Respiratory Tract Infection No 06/10/24 08:11 STOP Sleep Apnea STOP Sleep Apnea - dye colorist formulator: STOP Sleep Apnea - dye colorist formulator Hx Hypertension Yes: NO MEDS SINCE 201706/10/24 08:11 Hx Sleep Apnea No 06/10/24 08:11 CPAP No: BEFORE WEIGHT LOSS 04/18/23 16:53 BIPAP No 04/08/23 13:20 Do you snore loudly (louder No 06/10/24 08:11 than talking or can be heard Do you often feel tired/ No 06/10/24 08:11 fatigued/ sleepy during daytime? Has anyone observed you stop No 06/10/24 08:11 breathing during sleep? STOP Results Negative 06/10/24 08:11 QUESTION #5 FULL TEXT : Do you snore loudly (louder than talking or can be heard through closed doors)? Tobacco Use History Tobacco Use History - dye colorist formulator: Tobacco Use History - dye colorist formulator Tobacco Use Smoking Status Never smoker 06/10/24 08:11 Hx Tobacco Use No 06/10/24 08:11 Years Smoking Packs Smoked per Day Smoking Cessation Date was within the last 15 years Hx Smoking Cessation Date Hx Smoking Cessation Counseling Hematologic Medial History Hematologic Hx - dye colorist formulator: Hematologic Medical Hx - documentation specialist Hx of Blood Transfusion No 06/10/24 08:11 Hx of Transfusion in last 3 No 06/10/24 08:11 Months Date of Last Transfusion (if within last 3 months) Ever experience any problems No 06/10/24 08:11 with transfusion(s)? Specify any problems Hx of Preganancy in last 3 No 06/10/24 08:11 Months Nurse Filling Out Transfusion DSCHRIBER 06/10/24 08:11 & Questions: Date: 06/10/24 06/10/24 08:11 Time: 08:13 06/10/24 08:11 Patient unable to answer at this time (ie. confused, unrespo /Reproduction History /Reproductive History - dye colorist formulator: /Reproductive Hx- dye colorist formulator Hx Now No 06/10/24 08:11 Gestational Age (in weeks): EDC: Hx Hx Para Hx Section SAB No 06/10/24 08:11 Active Medications Active Medications: Current Medications Generic Name Dose Route Start Last Admin Trade Name Freq PRN Reason Stop Dose Admin Sodium Chloride 1,000 mls @ 15 mls/hr 07/03/24 06:55 07/03/24 07:27 IV 07/08/24 20:14 15 mls/hr .Q48H DAVE Administration Levonorgestrel 1 each 07/03/24 08:15 Levonorgestrel Iud (Liletta) INTRA-UTER 07/03/24 08:16 X1 ONE PFSH Medical History Alcohol use Migraine headache Leg cramps History of echocardiogram History of stress test Cardiology follow-up encounter Wears glasses Nonhealing surgical wound Excessive weight loss Intertrigo Shoulder pain Chronic thoracic back pain Chronic neck pain Macromastia Anxiety and depression Hyperlipidemia Gout Obstructive sleep apnea Obesity Hypertension Type 2 diabetes mellitus without complications Home Medications ?Medication ?Instructions ?Recorded ?Last Taken ?Type levothyroxine 88 mcg tablet 88 mcg PO DAILY thyroid 07/02/24 History allopurinol 100 mg tablet 100 mg PO DAILY 06/10/2406/23 History bupropion HCl 300 mg 24 hr tablet, 300 mg PO DAILY 03/2507/02/24 History extended release gabapentin 300 mg capsule 300 mg PO QHS 06/10/2407/02 History meloxicam 15 mg tablet 15 mg PO DAILY 06/10/24 0406/23 History Allergy/AdvReac Type Severity Reaction Status Date / Time No Known Allergies Allergy Verified 07/03/24 07:07 Family History Mother CAD (coronary artery disease) MD age 47 Hypertension Brother Hypertension Diabetes Other Arthritis Surgical History Hx of hand surgery History of bilateral breast reduction surgery History of gastric bypass History of carpal tunnel release Social History Smoking Status: Never smoker alcohol intake: current alcohol intake frequency: holidays/special occasions only substance use type: does not use additional social history: DOES NOT TAKE IBUPROFEN DOES TAKE ASPIRIN NEEDED Review of Systems (Anesthesia) ROS Narrative System reviewed and no additional complaints, except as documented. 07/03/24 0753 <Electronically signed by Kaushal bal MD> Date _ Kaushal Leonardo MD Cosigner Signature: Date CC: ~ Signed [facility] Work Phone: 1(810) 517-201704-04-2025 Consult note [facility] Medical Records Department [address] [place] [address] Anesthesia Postop Eval I 07/03/2431 MR#: [id number] Acct: [id number] Name: NICOLASA CASTILLO Rep #:[id number] : 1975 49 From: Tamela Desai CRNA PCP: Dr. Florian Johns MD Status:REG S DC Y Race: C Location: [place] [address] Anesthesia: Postop Eval I Current Vital Signs Temperature: 97 F Pulse Rate: 88 Blood Pressure: 135/99 Respiratory Rate: 18 Pulse Ox: 97 Oxygen Delivery Method: Room Air Assessment Airway patent: Yes Spontaneous unlabored respirations: Yes Mental status: Awake nausea: No Vomiting: No Anesthesia Complication: No Fluid Hydration Crystalloid volume administer (ml): 1,000 Total IV fluid infused: 1,000 Progress Note Anesthesia document: Postop Eval 1 completed: Yes 07/03/24 0933 c NURSING CLERK> Date _ Tamela Desai NURSING CLERK Cosigner Signature: Date CC: ~ Signed [facility]04-04-2025 History and physical note Author Yasmin Panda [facility] Note Date/Time July 03, 2024 7:22 am [facility] Medical Records Department [address] [facility] [place] [address] H&P Exam - ACCESSIONER 07/02/24 1331 MR#: [id number] Acct: [id number] Name: NICOLASA CASTILLO Rep #:[id number] : 1975 49 From: Yasmin Jackson MD PCP: Dr. Florian Johns MD Status:REG S DC Location: [place] [address] History and Physical Date of Admission: 07/03/24 Expand All Collapse All Pre-Op History and Physical HPI: The patient is a 49 year old female presenting for pre-operative visit. She is scheduled for laparoscopic bilateral salpingectomy and IUD removal/insertion of liletta , for Desires sterilization and Menstrual control- heavy menses/dysmenorrhea on 07/03/24. Procedure discussed along with risks, benefits and complications. Other alternatives discussed for management. Consent form signed? Yes. PAST MEDICAL HISTORY PAST MEDICAL HISTORY Diagnosis Date ? Diabetes (HCC) ? Dysmetabolic syndrome ? Gout ? Hypercholesteremia ? Hypertension ? Hypothyroidism PAST SURGICAL HISTORY PAST SURGICAL HISTORY Procedure Laterality Date ? ASPIRATION&/INJECTION GANGLION CYST ANY LOCATJ Right 04/2023 removal cyst ? MIRENA 03/23/2013 ? OFFICE LEEP 02/13/2013 Negative ? PAST SURGICAL HISTORY OF 05/2017 [facility] ? REDUCTION OF LARGE BREAST Bilateral 2019 ? VAGINOSCOPY 01/14/2013 GILES 3 ? VAGINOSCOPY 01/06/2014 CURRENT MEDICATIONS Current Outpatient Medications Medication Sig Dispense Refill ? buPROPion SR (ZYBAN SR; WELLBUTRIN SR) 150 mg 12 hr tablet Take 1 tablet by mouth once daily. ? levonorgestrel (MIRENA) 21 mcg/24 hours (8 yrs) 52 mg IUD 1 Each by INTRAUTERINE route one time only. ? SYNTHROID 88 MCG TAB Take one(1) tablet daily. 0 ? ALLOPURINOL 100 MG TAB Take one(1) tablet daily. 0 No current facility-administered medications for this visit. ALLERGIES: Patient has no known allergies. PERSONAL HISTORY: SOCIAL HISTORY Social History Tobacco Use ? Smoking status: Never ? Smokeless tobacco: Never Vaping Use ? Vaping status: Never Used Substance Use Topics ? Alcohol use: Yes Comment: occasional ? Drug use: No FAMILY HISTORY: FAMILY HISTORY FAMILY HISTORY Problem Relation Age of Onset ? Heart Mother REVIEW OF SYMPTOMS: negative except as noted above PHYSICAL EXAMINATION: VITALS: Blood pressure 134/72, height 170.2 cm (5' 7), weight 89.8 kg (198 lb),last menstrual period 07/27/2014. GENERAL: The patient is well nourished, well hydrated in no acute distress. , The patient is oriented to time, place, and person. NECK: Full range of motion LUNGS: Clear to auscultation bilaterally. no wheezes, rhonchi or rales HEART: Regular rate and rhythm, Normal heart sounds, and No murmurs or gallops IMPRESSION: 49yo desires sterilization and IUD - Liletta for menstrual regulation - h/o AUB and dysmenorrhea PLAN: Laparoscopic Bilateral salpingectomy and IUD removal and reinsertion with Liletta Pt has been counseled on risks/benefits and alternatives of surgery including but not limited to anesthesia, bleeding, infection, injury to pelvic structures including bowel, bladder, ureters and vessels. Pt wishes to proceed with surgery at this time. Pre and post op instructions reviewed I have reviewed and updated past medical and surgical history, medications and allergies Yasmin Jackson MD Office Visit on 06/09/2024 Note shared with patient 07/02/24 1332 <Electronically signed by Yasmin Crouch MD> Cosigner Signature (if applicable): CC: Dr Yasmin Crouch MD; Dr. Florian Johns MD~ Signed ADDENDUM by Dr Yasmin Crouch MD on 07/03/24 at 0722 Addendum I have examined the patient and the H&P has been reviewed. There are no clinicalchanges since date of exam. 07/03/24 0722<Electronically signed by Yasmin Crouch MD> Cosigner Signature (if applicable): cc: Dr Yasmin Crouch MD; Dr. Florian Johns MD ~* Signed [facility] Work Phone: [phone]) 431-696204-04-2025 Procedure note [facility] Medical Records Department [address] [place] [id number] Operative Report 07/03/2413 MR#: [id number] Acct: [id number] Name: NICOLASA CASTILLO Rep #:[id number] : 1975 49 From: Yasmin Jackson MD PCP: Dr. Florian Johns MD Status:REG S DC Location: [place] [address] Operative Report (Standard) Operative Information Date of Procedure: 07/03/24 Pre-Operative Diagnosis: desires sterilization, dysmenorrhea, heavy menses Post-Operative Diagnosis: same, Omental adhesions Surgery/Procedure Performed: IUD removal, IUD- liletta insertion, laparoscopic bilateral salpingectomy, Lysis of adhesions die designer: No Type of Anesthesia: General and Local RN Documented Start/Stop Times: Operation Date: 07/03/24 08:15 Case Time Into Pre-Op 07/03/24 06:50 Out of Pre-Op 07/03/24 08:22 Procedure Start Time: 08:38 Procedure Stop Time: 09:12 Select all DRAINS/GRAFTS/IMPLANTS that apply: None Special Medications: Liletta IUD Estimated Blood Loss: 10 Fluids Replaced: 1100 Specimen collected: Yes Description of specimen(s) removed: bilateral fallopian tubes Description of surgery: After informed consent was obtained patient was taken to the operating room she was placed in supine position she was given anesthesia. She was then placed in the [facility] stirru and she was prepped and draped in normal sterile fashion. Bladder was drained prior to the start of procedure. At this time attention was turned to the vaginal portion where weighted speculum placed at posterior fornix vagina single-tooth tenaculum was used to gently grasp the internal the cervix. uterus was gentlysounded to approximately 7cm. Mirena IUD strings were visualized and the Mirena IUD was removed intact without complication. Uterine manipulator was placed without difficulty. Legs then placed in parallel with the abdomen the tenaculum and the weighted speculum wereremoved. 2 towel clamps were placed at level of umbilicus. Marcaine was injected infraumbilical and a small incision was made. The 5 mm trocar was placed under direct visualization. CO2 gas was used to insufflate the intra- abdominal cavity. Upon inspection significant omental adhesions to the anteriorabdominal wall were appreciatedwhich were obscuring our view and had to be taken down prior to placement of the right lower quadrant port. At this time the left lower quadrant port was placed-Marcaine was injected small incision wa smade and the trocar was placed under direct visualization. The Enseal was then used to coagulate and ligate along the clear space close to the anterior abdominal wall making sure it was free of any vital structures the omentum was then dropped down allowing better visualization. Once the adhesionswere freed and hemostasis was appreciated the right lower quadrant was placed in the same manner asthe left lower quadrant. At this time then tubes were traced back to the fimbriated ends. Enseal was used to coagulate and ligate along mesosalpynx bilaterally until tubes removed completely. Good hemostasis was appreciated. At this time procedure was deemed complete successful. The gas was desufflated on from the intra-abdominal cavity. The trochars were removed. Skin was closed using 4-0 Monocryl in a subcutaneous fashion. Dermabond glue was placed. Instrument lap and needle counts were correct ?2. The uterine manipulator was removed. The Liletta IUD was open the Liletta IUD was placed at the fundus of the uterus without complication. The strings were cut to 2 cm from the cervicalos. The single-tooth tenaculum was removed from the anterior lip of the cervix some small bleeding was notedpressure was held. Vaginal sweep was performed itwas negative. There were no complications anticipated normal postoperative course for this patient. Surgical Findings: Omental adhesions to the anterior abdominal wall. Complications Complications: No Admit VTE Documentation VTE Present on Admission: Yes VTE Mechan Device Prophylaxis: SCD's VTE Pharm Prophylaxis ordered?: No Reason prophylaxis not ordered: Treatment Not Indicated 07/03/24 09 Cosigner Signature (if applicable): CC: Dr Yasmin Crouch MD; Dr. Florian Johns MD~ Signed [facility]04-04-2025 Discharge summary [facility] Medical Records Department [address] [place] [address] Instructions for Home/Discharge Instructions 07/03/24822 MR#: [id number] Acct: [id number] Name: NICOLASA CASTILLO Rep #:[id number] : 1975 49 From: Yasmin Jackson MD PCP: Dr. Florian Johns MD Status:REG S DC Discharge Instructions Diet Discharge Diet: No restrictions DC O2, CPAP, BIPAP needs Home O2 Discharge instructions: No Dressing / Incision May resume sexual activity in: 1 week Lifting Restrictions: 20-25 lbs Dressing / Incision Call your doctor if your incision/area has: Continuous Slow Oozing, Sudden Increased Bleeding, Increased Pain/ Swelling, Increased Redness, Foul Smelling Discharge and Swelling at the incision site Call your doctor if you observe: Fever of 101 or Higher, Inability to urinate, Inability to have a bowel movement, Using more than 1 pad per hour and Uncontrolled pain Additional Dressing/Incision Instructions:: You have skin glue over your incision sites, do not pick off. You may shower and let the soap and water run over the incision sites and dab dry. Follow Up Care Please Follow Up With: Yasmin Crouch MD When: 1-2 weeks post OP if you need an appointment please call [phone] Test Results: Test results from this visit will be discussed in further detail at your follow- up appointment, if applicable. Discharge Plan Admission Attending Provider: Yasmin Crouch Primary Care Provider: Florian Johns Instructions Print Language: Solomon Islander Discharge Orders/Prescriptions Prescriptions: No Action levothyroxine 88 MCG tablet 88 mcg PO DAILY allopurinol 100 mg tablet 100 mg PO DAILY bupropion HCl 300 mg tablet extended release 24 hr 300 mg PO DAILY meloxicam 15 mg tablet 15 mg PO DAILY gabapentin 300 mg capsule 300 mg PO QHS Referrals / Follow Up: Florian Johns MD [Primary Care Provider] - Disposition Disposition (needs filled in before D/C Order can be placed): Home, Self Care 07/03/24 0824Yasmin Crouch MD CC: Dr. Florian Johns MD ~ Signed [facility]04-04-2025 Consult note [facility] Medical Records Department [address] [place] [address] Pre-Anesthesia Evaluation 07/03/24 0747 MR#: [id number] Acct: [id number] Name: NICOLASA CASTILLO Rep #:[id number] : 1975 49 From: Kaushal Leonardo MD PCP: Dr. Florian Johns MD Status:REG S DC Y Race: C Location: [place] [address] ASA Classification* ASA Classification ASA Classification: 2 Assessment & Plan Anesthesia* Anesthesia Assessment Anesthesia Assessment: Discussed sedation and/or anesthesia options, risks, benefits, and alternatives with patient/parents/legal guardian/POA. Questions invited. The patient/parents/legal guardian/POA seems to understand and agrees to proceedwith anesthesia plan. Reviewed the physical assessment, medical history, allergy history and patient home medications list prior to surgery/procedure/anesthetic and documented any changes. Performed airway and anesthesia risk assessments. Anesthesia Type Anesthesia Type: General History Source History Obtained from:: Patient and Chart Anesthesia Focused Assessment* Temperature: 98.0 F Pulse Rate: 78 Blood Pressure: 136/76 Respiratory Rate: 16 Pulse Ox: 97 Oxygen Delivery Method: Room Air Airway Assessment Mouth opens: >3 cm Mallampati Score: II Teeth Condition: Intact Neck Range of motion (ROM): Full ROM Focused Labs Anesthesia Preop lab: CBC WBC 3.9 K/mm3 (4.4-11.0) L 07/03/24 07:20 07/03/24 RBC 3.76 M/mm3 (4.2-5.4) L 07/03/24 07:20 07/03/24 Hgb 11.0 g/dL (12.0-15.0) L 07/03/24 07:20 5 Hct 33.4 % (37-47) L 07/03/24 07:20 07/03/24 Plt Count 246 K/mm3 (150-450) 07/03/24 07:20 07/03/24 CHEMISTRY Potassium 3.6 mmol/L (3.5-5.1) 09/20/23 07:38 09/20/23 Sodium 138 mmol/L (136-145) 09/20/23 07:38 09/20/23 BUN 15 mg/dL (7-18) 09/20/23 07:38 09/20/23 Creatinine 0.88 mg/dL (0.55-1.02) 09/20/23 07:38 09/20/23 Glucose 92 mg/dL (74-106) 09/20/23 07:38 09/20/23 POC Glucose 85 mg/dL (70-110) 02/23/20 11:22 02/23/20 TSH 1.47 uIU/mL (0.358-3.74) 09/20/23 07:38 COAG PT 12.7 SECONDS (11.7-14.9) 02/22/20 07:13 Urine Test Negative Negative 07/03/24 07:00 07/03/24 Pre-Assessment Diagnosis/Proposed Procedure Planned Operative Procedure(s): LAP SALPINGECTOMY BILAT,REMOVAL MIRENA IUD INSERTION OF LILETTA IUD Anesthesia History Anesthesia History - dye colorist formulator: Anesthesia History - dye colorist formulator Hx Hospitalization No 06/10/24 08:11 Any Problems With Anesthesia No 06/10/24 08:11 Cholinesterase deficiency No 06/10/24 08:11 You/Your Family Experience No 06/10/24 08:11 fever (hyperthermia) with Relationship Recent Exposure to Contagious No 07/03/24 07:09 Disease Does patient have nerve No 06/10/24 08:11 stimulator Patient instructed to have device shut off --Does patient have Pacemaker No 07/03/24 07:11 or ICD? When Was Last Pacemaker Check QUESTION #4 FULL TEXT: You/Your Family Experience fever (hyperthermia) with Anesthesia Last Oral Intake Last Oral intake: Last Oral Intake NPO since 00:00 07/03/24 07:11 Meds taken in AM with sips of No 07/03/24 07:11 water? Meds patient instructed to take am of surgery PONV PONV - dye colorist formulator: PONV - dye colorist formulator Female Yes 06/10/24 08:11 HX of Motion Sickness Yes 06/10/24 08:11 HX of N/V After Surgery No 06/10/24 08:11 Non-Smoker Yes 06/10/24 08:11 Duration of Surgery greater No 06/10/24 08:11 than 60 minutes Number of Risk Factors 3 06/10/24 08:11 PONV Score Moderate Risk 06/10/24 08:11 Height & Weight Height & Weight: Anesthesia: Height & Weight Height 5 ft 7 in 07/03/24 07:11 Weight: 89.358 kg 07/03/24 07:11 Body Mass Index (BMI) 30.8 07/03/24 07:11 Respiratory Assessment Respiratory Assessment - dye colorist formulator: Respiratory Tract Infection Hx - dye colorist formulator Hx Respiratory Tract Infection No 06/10/24 08:11 STOP Sleep Apnea STOP Sleep Apnea - dye colorist formulator: STOP Sleep Apnea - dye colorist formulator Hx Hypertension Yes: NO MEDS SINCE 201706/10/24 08:11 Hx Sleep Apnea No 06/10/24 08:11 CPAP No: BEFORE WEIGHT LOSS 04/18/23 16:53 BIPAP No 04/08/23 13:20 Do you snore loudly (louder No 06/10/24 08:11 than talking or can be heard Do you often feel tired/ No 06/10/24 08:11 fatigued/ sleepy during daytime? Has anyone observed you stop No 06/10/24 08:11 breathing during sleep? STOP Results Negative 06/10/24 08:11 QUESTION #5 FULL TEXT : Do you snore loudly (louder than talking or can be heard through closeddoors)? Tobacco Use History Tobacco Use History - dye colorist formulator: Tobacco Use History - dye colorist formulator Tobacco Use Smoking Status Never smoker 06/10/24 08:11 Hx Tobacco Use No 06/10/24 08:11 Years Smoking Packs Smoked per Day Smoking Cessation Date was within the last 15 years Hx Smoking Cessation Date Hx Smoking Cessation Counseling Hematologic Medial History Hematologic Hx - dye colorist formulator: Hematologic Medical Hx - documentation specialist Hx of Blood Transfusion No 06/10/24 08:11 Hx of Transfusion in last 3 No 06/10/24 08:11 Months Date of Last Transfusion (if within last 3 months) Ever experience any problems No 06/10/24 08:11 with transfusion(s)? Specify any problems Hx of Preganancy in last 3 No 06/10/24 08:11 Months Nurse Filling Out Transfusion DSCHRIBER 06/10/24 08:11 & Questions: Date: 06/10/24 06/10/24 08:11 Time: 08:13 06/10/24 08:11 Patient unable to answer at this time (ie. confused, unrespo /Reproduction History /Reproductive History - dye colorist formulator: /Reproductive Hx- dye colorist formulator Hx Now No 06/10/24 08:11 Gestational Age (in weeks): EDC: Hx Hx Para Hx Section SAB No 06/10/24 08:11 Active Medications Active Medications: Current Medications Generic Name Dose Route Start Last Admin Trade Name Freq PRN Reason Stop Dose Admin Sodium Chloride 1,000 mls @ 15 mls/hr 07/03/24 06:55 07/03/24 07:27 IV 07/08/24 20:14 15 mls/hr .Q48H DAVE Administration Levonorgestrel 1 each 07/03/24 08:15 Levonorgestrel Iud (Liletta) INTRA-UTER 07/03/24 08:16 X1 ONE PFSH Medical History Alcohol use Migraine headache Leg cramps History of echocardiogram History of stress test Cardiology follow-up encounter Wears glasses Nonhealing surgical wound Excessive weight loss Intertrigo Shoulder pain Chronic thoracic back pain Chronic neck pain Macromastia Anxiety and depression Hyperlipidemia Gout Obstructive sleep apnea Obesity Hypertension Type 2 diabetes mellitus without complications Home Medications ?Medication ?Instructions ?Recorded ?Last Taken ?Type levothyroxine 88 mcg tablet 88 mcg PO DAILY thyroid 07/02/24 History allopurinol 100 mg tablet 100 mg PO DAILY 06/10/2406/23 History bupropion HCl 300 mg 24 hr tablet, 300 mg PO DAILY 03/2507/02/24 History extended release gabapentin 300 mg capsule 300 mg PO QHS 06/10/2407/02 History meloxicam 15 mg tablet 15 mg PO DAILY 06/10/2406/23 History Allergy/AdvReac Type Severity Reaction Status Date / Time No Known Allergies Allergy Verified 07/03/24 07:07 Family History Mother CAD (coronary artery disease) MD age 47 Hypertension Brother Hypertension Diabetes Other Arthritis Surgical History Hx of hand surgery History of bilateral breast reduction surgery History of gastric bypass History of carpal tunnel release Social History Smoking Status: Never smoker alcohol intake: current alcohol intake frequency: holidays/special occasions only substance use type: does not use additional social history: DOES NOT TAKE IBUPROFEN DOES TAKE ASPIRIN NEEDED Review of Systems (Anesthesia) ROS Narrative System reviewed and no additional complaints, except as documented. 07/03/24 0753 valeriano LOVE> Date _ Kaushal Leonardo MD Cosigner Signature: Date CC: ~ Signed [facility]04-04-2025 History and physical note [facility] Medical Records Department [address] [place] [address] H&P Exam - ACCESSIONER 07/02/24 1331 MR#: [id number] Acct: [id number] Name: NICOLASA CASTILLO Rep #:[id number] : 1975 49 From: Yasmin Jackson MD PCP: Dr. Florian Johns MD Status:REG S [place] Location: [place] [address] History and Physical Date of Admission: 07/03/24 Expand All Collapse All Pre-Op History and Physical HPI: The patient is a 49 year old female presenting for pre-operative visit. She is scheduled for laparoscopic bilateral salpingectomy and IUD removal/insertion of liletta , for Desires sterilization and Menstrual control- heavy menses/dysmenorrhea on 07/03/24. Procedure discussed along with risks, benefits and complications. Other alternatives discussed for management. Consent form signed? Yes. PAST MEDICAL HISTORY PAST MEDICAL HISTORY Diagnosis Date ? Diabetes (HCC) ? Dysmetabolic syndrome ? Gout ? Hypercholesteremia ? Hypertension ? Hypothyroidism PAST SURGICAL HISTORY PAST SURGICAL HISTORY Procedure Laterality Date ? ASPIRATION&/INJECTION GANGLION CYST ANY LOCATJ Right 04/2023 removal cyst ? MIRENA 03/23/2013 ? OFFICE LEEP 02/13/2013 Negative ? PAST SURGICAL HISTORY OF 05/2017 [facility] ? REDUCTION OF LARGE BREAST Bilateral 2019 ? VAGINOSCOPY 01/14/2013 GILES 3 ? VAGINOSCOPY 01/06/2014 CURRENT MEDICATIONS Current Outpatient Medications Medication Sig Dispense Refill ? buPROPion SR (ZYBAN SR; WELLBUTRIN SR) 150 mg 12 hr tablet Take 1 tablet by mouth once daily. ? levonorgestrel (MIRENA) 21 mcg/24 hours (8 yrs) 52 mg IUD 1 Each by INTRAUTERINE route one time only. ? SYNTHROID 88 MCG TAB Take one(1) tablet daily. 0 ? ALLOPURINOL 100 MG TAB Take one(1) tablet daily. 0 No current facility-administered medications for this visit. ALLERGIES: Patient has no known allergies. PERSONAL HISTORY: SOCIAL HISTORY Social History Tobacco Use ? Smoking status: Never ? Smokeless tobacco: Never Vaping Use ? Vaping status: Never Used Substance Use Topics ? Alcohol use: Yes Comment: occasional ? Drug use: No FAMILY HISTORY: FAMILY HISTORY FAMILY HISTORY Problem Relation Age of Onset ? Heart Mother REVIEW OF SYMPTOMS: negative except as noted above PHYSICAL EXAMINATION: VITALS: Blood pressure 134/72, height 170.2 cm (5' 7), weight 89.8 kg (198 lb),last menstrual period 07/27/2014. GENERAL: The patient is well nourished, well hydrated in no acute distress. , The patient is oriented to time, place, and person. NECK: Full range of motion LUNGS: Clear to auscultation bilaterally. no wheezes, rhonchi or rales HEART: Regular rate and rhythm, Normal heart sounds, and No murmurs or gallops IMPRESSION: 49yo desires sterilization and IUD - Liletta for menstrual regulation - h/o AUB and dysmenorrhea PLAN: Laparoscopic Bilateral salpingectomy and IUD removal and reinsertion with Liletta Pt has been counseled on risks/benefits and alternatives of surgery including but not limited to anesthesia, bleeding, infection, injury to pelvic structures including bowel, bladder, ureters and vessels. Pt wishes to proceed with surgery at this time. Pre and post op instructions reviewed I have reviewed and updated past medical and surgical history, medications and allergies Yasmin Jackson MD Office Visit on 06/09/2024 Note shared with patient 07/02/24 1332 Cosigner Signature (if applicable): CC: Dr Yasmin Crouch MD; Dr. Florian Johns MD~ Signed ADDENDUM by Dr Yasmin Crouch MD on 07/03/24 at 0722 Addendum I have examined the patient and the H&P has been reviewed. There are no clinicalchanges since date of exam. 07/03/24 0722 Cosigner Signature (if applicable): cc: Dr Yasmin Crouch MD; Dr. Florian Johns MD ~* Signed [facility]03-11-2025 NoteHNO ID: [id number] Author: YASMIN KEE MD Service: ? Author Type: Physician Type: Progress Notes Filed: 06/09/2024 17:27 Note Text:[facility]03-11-2025 History of Present illness Narrative* Yasmin Kee MD - 06/09/2024 5:25 PM EDT [facility] History and physical note * Yasmin Kee MD - 06/09/2024 4:43 PM EDT Pre-Op History and Physical HPI: The patient is a 49 year old female presenting for pre-operative visit. She is scheduled for laparoscopic bilateral salpingectomy and IUD removal/insertion of liletta , for Desires sterilization and Menstrual control- heavy menses/dysmenorrhea on 07/03/24. Procedure discussed along with risks, benefits and complications. Other alternatives discussed for management. Consent form signed? Yes. PAST MEDICAL HISTORY Diagnosis Date Diabetes (HCC) Dysmetabolic syndrome Gout Hypercholesteremia Hypertension Hypothyroidism PAST SURGICAL HISTORY Procedure Laterality Date ASPIRATION&/INJECTION GANGLION CYST ANY LOCATJ Right 04/2023 removal cyst MIRENA 03/23/2013 OFFICE LEEP 02/13/2013 Negative PAST SURGICAL HISTORY OF 05/2017 gastric bi pass- [facility] REDUCTION OF LARGE BREAST Bilateral 2020 VAGINOSCOPY 01/14/2013 GILES 3 VAGINOSCOPY 01/06/2014 Current Outpatient Medications Medication Sig Dispense Refill buPROPion SR (ZYBAN SR; WELLBUTRIN SR) 150 mg 12 hr tablet Take 1 tablet by mouth once daily. levonorgestrel (MIRENA) 21 mcg/24 hours (8 yrs) 52 mg IUD 1 Each by INTRAUTERINE route one time only. SYNTHROID 88 MCG TAB Take one(1) tablet daily. 0 ALLOPURINOL 100 MG TAB Take one(1) tablet daily. 0 No current facility-administered medications for this visit. ALLERGIES: Patient has no known allergies. PERSONAL HISTORY: Social History Tobacco Use Smoking status: Never Smokeless tobacco: Never Vaping Use Vaping status: Never Used Substance Use Topics Alcohol use: Yes Comment: occasional Drug use: No FAMILY HISTORY: FAMILY HISTORY Problem Relation Age of Onset Heart Mother REVIEW OF SYMPTOMS: negative except as noted above PHYSICAL EXAMINATION: VITALS: Blood pressure 134/72, height 170.2 cm (5' 7), weight 89.8 kg (198 lb), last menstrual period 07/27/2014. GENERAL: The patient is well nourished, well hydrated in no acute distress. , The patient is oriented to time, place, and person. NECK: Full range of motion LUNGS: Clear to auscultation bilaterally. no wheezes, rhonchi or rales HEART: Regular rate and rhythm, Normal heart sounds, and No murmurs or gallops IMPRESSION: 49yo desires sterilization and IUD - Liletta for menstrual regulation - h/o AUB and dysmenorrhea PLAN: Laparoscopic Bilateral salpingectomy and IUD removal and reinsertion with Liletta Pt has been counseled on risks/benefits and alternatives of surgery including but not limited to anesthesia, bleeding, infection, injury to pelvic structures including bowel, bladder, ureters and vessels. Pt wishes to proceed with surgery at this time. Pre and post op instructions reviewed I have reviewed and updated past medical and surgical history, medications and allergies Yasmin Jackson MD [facility]03-11-2025 History and physical note* Yasmin Kee MD - 06/09/2024 4:43 PM EDT Pre-Op History and Physical HPI: The patient is a 49 year old female presenting for pre-operative visit. She is scheduled for laparoscopic bilateral salpingectomy and IUD removal/insertion of liletta , for Desires sterilization and Menstrual control- heavy menses/dysmenorrhea on 07/03/24. Procedure discussed along with risks, benefits and complications. Other alternatives discussed for management. Consent form signed? Yes. PAST MEDICAL HISTORY Diagnosis Date Diabetes (HCC) Dysmetabolic syndrome Gout Hypercholesteremia Hypertension Hypothyroidism PAST SURGICAL HISTORY Procedure Laterality Date ASPIRATION&/INJECTION GANGLION CYST ANY LOCATJ Right 04/2023 removal cyst MIRENA 03/23/2013 OFFICE LEEP 02/13/2013 Negative PAST SURGICAL HISTORY OF 05/2017 gastric bi [facility] REDUCTION OF LARGE BREAST Bilateral 2020 VAGINOSCOPY 01/14/2013 GILES 3 VAGINOSCOPY 01/06/2014 Current Outpatient Medications Medication Sig Dispense Refill buPROPion SR (ZYBAN SR; WELLBUTRIN SR) 150 mg 12 hr tablet Take 1 tablet by mouth once daily. levonorgestrel (MIRENA) 21 mcg/24 hours (8 yrs) 52 mg IUD 1 Each by INTRAUTERINE route one time only. SYNTHROID 88 MCG TAB Take one(1) tablet daily. 0 ALLOPURINOL 100 MG TAB Take one(1) tablet daily. 0 No current facility-administered medications for this visit. ALLERGIES: Patient has no known allergies. PERSONAL HISTORY: Social History Tobacco Use Smoking status: Never Smokeless tobacco: Never Vaping Use Vaping status: Never Used Substance Use Topics Alcohol use: Yes Comment: occasional Drug use: No FAMILY HISTORY: FAMILY HISTORY Problem Relation Age of Onset Heart Mother REVIEW OF SYMPTOMS: negative except as noted above PHYSICAL EXAMINATION: VITALS: Blood pressure 134/72, height 170.2 cm (5' 7), weight 89.8 kg (198 lb), last menstrual period 07/27/2014. GENERAL: The patient is well nourished, well hydrated in no acute distress. , The patient is oriented to time, place, and person. NECK: Full range of motion LUNGS: Clear to auscultation bilaterally. no wheezes, rhonchi or rales HEART: Regular rate and rhythm, Normal heart sounds, and No murmurs or gallops IMPRESSION: 49yo desires sterilization and IUD - Liletta for menstrual regulation - h/o AUB and dysmenorrhea PLAN: Laparoscopic Bilateral salpingectomy and IUD removal and reinsertion with Liletta Pt has been counseled on risks/benefits and alternatives of surgery including but not limited to anesthesia, bleeding, infection, injury to pelvic structures including bowel, bladder, ureters and vessels. Pt wishes to proceed with surgery at this time. Pre and post op instructions reviewed I have reviewed and updated past medical and surgical history, medications and allergies Yasmin Jackson MD documented in this encounter[facility] NoteHNO ID: [id number] Author: YASMIN KEE MD Service: ? Author Type: Physician Type: Progress Notes Filed: 04/21/2024 16:56 Note Text: Nicolasa Castillo is a 49 year old female who presents for sterizlation consultation. Pt currently uses mirena and would like to consider Salpingectomy. Pt reports prior to mirena and gastric bypass menses were very irregular. Pt unsure if she wants to continue use of mirena. OB History T0 L0 SAB0 IAB0 Ectopic0 Multiple0 Live Births0 [employer] Make Up Helper History LMP: 07/27/2014, IUD Age at Menarche: Age at First : Age at Menopause: [employer] Up Helper History Comments: Sexual Activity: Yes; Male Contraception: I.U.D. PAST MEDICAL HISTORY Diagnosis Date Diabetes (HCC) Dysmetabolic syndrome Gout Hypercholesteremia Hypertension Hypothyroidism PAST SURGICAL HISTORY Procedure Laterality Date ASPIRATIONAND/INJECTION GANGLION CYST ANY LOCATJ Right 04/2023 removal cyst MIRENA 03/23/2013 OFFICE LEEP 02/13/2013 Negative PAST SURGICAL HISTORY OF 05/2017 gastric bi pass- [facility] REDUCTION OF LARGE BREAST Bilateral 2020 VAGINOSCOPY 01/14/2013 GILES 3 VAGINOSCOPY 01/06/2014 FAMILY HISTORY Problem Relation Age of Onset Heart Mother Social History Tobacco Use Smoking status: Never Smokeless tobacco: Never Vaping Use Vaping status: Never Used Substance Use Topics Alcohol use: Yes Comment: occasional Drug use: No Current Outpatient Medications Medication Sig buPROPion SR (ZYBAN SR; WELLBUTRIN SR) 150 mg 12 hr tablet Take 1 tablet by mouth once daily. levonorgestrel (MIRENA) 21 mcg/24 hours (8 yrs) 52 mg IUD 1 Each by INTRAUTERINE route one time only. SYNTHROID 88 MCG TAB Take one(1) tablet daily. ALLOPURINOL 100 MG TAB Take one(1) tablet daily. No current facility-administered medications for this visit. Allergies As of Date: 04/21/2024 (No Known Allergies) Fully Assessed 04/21/2024 REVIEW OF SYSTEMS Abdomen: no pain . Expanded ROS: N/A Allergies and current medication updated:Yes SENSITIVE EXAM: Sensitive exam not performed. EXAM: BP 124/80 Wt 194 lb (88.0kg) LMP 07/27/2014 GENERAL: pleasant, female in no apparent distress HEENT: Normocephalic and atraumatic NECK: Supple and full range of motion DERMATOLOGY: Normal, without lesions, non-icteric, and non-hirsute NEURO: alert and oriented x3,exam grossly non-focal EXTREMITIES: normal ASSESSMENT AND PLAN: Assessment AND Plan Sterilization consult -Discussed options- mirena / liletta removal and replacement at same time. Benefits reviewed. Discussed risks of surgery. -OR booking sheet filled out. RTO for pre op I spent a total of 20 minutes on the date of the service which included preparing to see the patient, [id number] patient care, completing clinical documentation, obtaining and/or reviewing separately obtained history, performing a medically appropriate examination, and counseling and educating the patient/family/caregiver. Yasmin Crouch, [facility]01-21-2025 History of Present illness Narrative* Yasmin Kee MD - 04/21/2024 3:14 PM EST Nicolasa Castillo is a 49 year old female who presents for sterizlation consultation. Pt currentlyuses mirena and would like to consider Salpingectomy. Pt reports prior to mirena and gastric bypassmenses were very irregular. Pt unsure if she wants to continue use of mirena. OB History T0 L0 SAB0 IAB0 Ectopic0 Multiple0 Live Births0 [employer] Make Up Helper History LMP: 07/27/2014, IUD Age at Menarche: Age at First : Age at Menopause: [employer] Up Helper History Comments: Sexual Activity: Yes; Male Contraception: I.U.D. PAST MEDICAL HISTORY Diagnosis Date Diabetes (HCC) Dysmetabolic syndrome Gout Hypercholesteremia Hypertension Hypothyroidism PAST SURGICAL HISTORY Procedure Laterality Date ASPIRATION&/INJECTION GANGLION CYST ANY LOCATJ Right 04/2023 removal cyst MIRENA 03/23/2013 OFFICE LEEP 02/13/2013 Negative PAST SURGICAL HISTORY OF 05/2017 gastric bi [facility] REDUCTION OF LARGE BREAST Bilateral 2020 VAGINOSCOPY 01/14/2013 GILES 3 VAGINOSCOPY 01/06/2014 FAMILY HISTORY Problem Relation Age of Onset Heart Mother Social History Tobacco Use Smoking status: Never Smokeless tobacco: Never Vaping Use Vaping status: Never Used Substance Use Topics Alcohol use: Yes Comment: occasional Drug use: No Current Outpatient Medications Medication Sig buPROPion SR (ZYBAN SR; WELLBUTRIN SR) 150 mg 12 hr tablet Take 1 tablet by mouth once daily. levonorgestrel (MIRENA) 21 mcg/24 hours (8 yrs) 52 mg IUD 1 Each by INTRAUTERINE route one time only. SYNTHROID 88 MCG TAB Take one(1) tablet daily. ALLOPURINOL 100 MG TAB Take one(1) tablet daily. No current facility-administered medications for this visit. Allergies As of Date: 04/21/2024 (No Known Allergies) Fully Assessed 04/21/2024 REVIEW OF SYSTEMS Abdomen: no pain . Expanded ROS: N/A Allergies and current medication updated:Yes SENSITIVE EXAM: Sensitive exam not performed. EXAM: BP 124/80 Wt 194 lb (88.0kg) LMP 07/27/2014 GENERAL: pleasant, female in no apparent distress HEENT: Normocephalic and atraumatic NECK: Supple and full range of motion DERMATOLOGY: Normal, without lesions, non-icteric, and non-hirsute NEURO: alert and oriented x3,exam grossly non-focal EXTREMITIES: normal ASSESSMENT AND PLAN: Assessment & Plan Sterilization consult -Discussed options- mirena / liletta removal and replacement at same time. Benefits reviewed. Discussed risks of surgery. -OR booking sheet filled out. RTO for pre op I spent a total of 20 minutes on the date of the service which included preparing to see the patient, [id number] patient care, completing clinical documentation, obtaining and/or reviewing separately obtained history, performing a medically appropriate examination, and counseling and educating the patient/family/caregiver. Yasmin Crouch MD documented in this encounterJoint [facility]01-[facility]25 Telephone encounter Note * Telephone Encounter - Desiree Vann RN - 04/09/2024 9:07 AM EST Patient not able to leave work today. Scheduled for another date. Desiree Vann RN [facility]01-09-2025 Miscellaneous Notes* Telephone Encounter - Desiree Vann RN - 04/09/2024 9:07 AM EST Patient not able to leave work today. Scheduled for another date. Desiree Vann RN * Telephone Encounter - Yasmin Kee MD - 04/09/2024 8:00 AM EST Yes, please schedule with me. I have openings today. * Telephone Encounter - Brandy Hinton RN - 04/08/2024 4:50 PM EST Patient last seen for annual exam on 09/17/23. Do you want patient to schedule consult for tubal. Brandy Hinton RN documented in this encounterJoint [facility]01-09-2025 Telephone encounter Note * Telephone Encounter - Yasmin Kee MD - 04/09/2024 8:00 AM EST Yes, please schedule with me. I have openings today. [facility]01-08-2025 Telephone encounter Note* Telephone Encounter - Brandy Hinton RN - 04/08/2024 4:50 PM EST Patient last seen for annual exam on 09/17/23. Do you want patient to schedule consult for tubal. Brandy Hinton RN [facility]07-01-2024 Telephone encounter Note* Telephone Encounter - Brandy Hinton RN - 09/30/2023 9:16 AM EDT Patient notified and voiced understanding. Patient states she will contact office if she would liketo see dermatology. Brandy Hinton RN [facility]07-01-2024 Miscellaneous Notes* Telephone Encounter - Brandy Hinton RN - 09/30/2023 9:16 AM EDT Patient notified and voiced understanding. Patient states she will contact office if she would liketo see dermatology. Brandy Hinton RN * Telephone Encounter - Yasmin Kee MD - 09/29/2023 9:15 AM EDT Free testosterone only slightly elevated- 2.84% (normal range 0.5- 2.8%) We checked due to hair loss. Discussed a few things at her appointment- Take Hair supplement, Use minoxidil 2 x daily for women (liquid drops), change to Thinning hair shampoo/conditioner - can try something like GUILHERME D'OR (sell on amazon) use erik drops, and can use Spironolactone 10 days out of the month. I would also recommend second opinion by Dermatology. * Telephone Encounter - Pat Marquez LPN - 09/26/2023 4:57 PM EDT Testosterone and DHEA lab results from [facility] received and to Dr. Jackson to review. Results entered in scanned documents documented in this encounterJoint Township District Memorial Hospital06-30-2024 Telephone encounter Note * Telephone Encounter - Yasmin Kee MD - 09/29/2023 9:15 AM EDT Free testosterone only slightly elevated- 2.84% (normal range 0.5- 2.8%) We checked due to hair loss. Discussed a few things at her appointment- Take Hair supplement, Use minoxidil 2 x daily for women (liquid drops), change to Thinning hair shampoo/conditioner - can try something like GUILHERME D'OR (sell on amazon) use erik drops, and can use Spironolactone 10 days out of the month. I would also recommend second opinion by Dermatology. [facility]06-27-2024 Telephone encounter Note* Telephone Encounter - Pat Marquez LPN - 09/26/2023 4:57 PM EDT Testosterone and DHEA lab results from [facility] received and to Dr. Jackson to review. Results entered in scanned documents [facility]06-18-2024 NoteHNO ID: [id number] Author: YASMIN KEE MD Service: ? Author Type: Physician Type: Progress Notes Filed: 09/17/2023 09:20 Note Text: Rn Intake offered: Patient declinesRobe Baldwin is a 48 year old who presents for an annual gynecologic exam without complaints. Hair loss not getting worse, but no improvement- gets electrolysis for facial hair. Menses: no menses - Mirena IUD. Contraception: IUD HPV vaccine: No Last Pap: 05/29/2021 normal HPV: 05/26/2021 negative History of abnormal pap: Yes 2013 Last mammogram: 2023normal Sexually active: Yes History of STDS: None Patient concerns for STD exposure: No. Pain with intercourse: No Postcoital bleeding: No Hot flashes: Occasional Night sweats: No Vaginal dryness: No Exercise:Active with work Diet: tries OB History T0 L0 SAB0 IAB0 Ectopic0 Multiple0 Live Births0 [employer] Make Up Helper History LMP: 07/27/2014, IUD Age at Menarche: Age at First : Age at Menopause: [employer] Make Up Helper History Comments: Sexual Activity: Yes; Male Contraception: I.U.D. PAST MEDICAL HISTORY Diagnosis Date Diabetes (HCC) Dysmetabolic syndrome Gout Hypercholesteremia Hypertension Hypothyroidism PAST SURGICAL HISTORY Procedure Laterality Date ASPIRATIONAND/INJECTION GANGLION CYST ANY LOCATJ Right 04/2023 removal cyst MIRENA 03/23/2013 OFFICE LEEP 02/13/2013 Negative PAST [...] Allergies and current medication updated:Yes EXAM: BP 110/66 Ht 5' 7.323 (1.71m) Wt 180 lb (81.6kg) LMP 07/27/2014 BMI 27.92 kg/(m2). GENERAL: pleasant, female in no apparent distress HEENT: Normocephalic, atraumatic, mucus membranes moist, and no lesions NECK: Supple, full range of motion, no adenopathy, and thyroid normal DERMATOLOGY: Normal, without lesions, non-icteric, and + hirsute- male pattern hair loss BREAST: soft, non-tender, symmetric, no dominant mass, normal nipple-areolar complex, no lymphadenopathy, and no nipple discharge ABDOMEN: soft, non-tender, and no masses PELVIC: external genitalia normal, normal Bartholin's glands, urethra, Lincolnia's glands, no vulvar lesions, no cervical lesions, good vaginal support, physiologic discharge present, normal appearing perineal body and perianal region +IUD strings BIMANUAL: uterus normal size, shape and consistency, no adnexal masses, and non-tender RECTOVAGINAL: deferred. NEURO: alert and oriented x3,exam grossly non-focal EXTREMITIES: normal ASSESSMENT/PLAN: 1) Health maintenance: Pap/HPV up to date. Mammogram up to date [facility] Nutrition, exercise and routine health maintenance exams reviewed. Calcium/Vitamin D supplementation information provided. Colon cancer screening: DECLINES cologaurd and colonoscopy 2) Contraception: IUD. Contraceptive options reviewed and information provided. 3) STD screening: Declined STD check. 4) Follow up one year or sooner as needed 5) Dheas and Testosterone ordered at [facility]* Patient Instructions* Yasmin Jackson MD - 06/18/2022 4:29 PM EDT Calcium [...] history of osteoporosis, are thin, or , orwho take certain medications such as cancer chemotherapy, [...] calcium and are the major food contributors inthe [place]. For example, 8oz of milk (whole, lowfat or skim) contains about 300mg calcium, 8oz of yogurt contains 415mg. Nondairy sources include salmon and sardines and vegetables, such as Estonian cabbage, kale, and broccoli. Foods fortified with [...] acid, calcium carbonate is found in some kzeg-knx-imutayk antacid products, such as Tums and Rolaids . Depending on its strength, each chewable pill or softchew provides 200 to 400 mg of elemental calcium. The percentage of calcium absorbed depends on the total amount of elemental calcium consumed at onetime. Absorption is highest in doses <500mg. So [...] and maintains adequate blood levels of calcium andphosphate for normal bone growth and bone remodeling. [...] content, and sunscreen are among the factors thataffect UV radiation exposure and vitamin D synthesis. Despite the importance of the sun for vitaminD synthesis, it is prudent to limit exposure [...] available in two forms, D2 (ergocalciferol) and D3(cholecalciferol). The two are equivalent at normal supplement [...] prescribed by your doctor. documented in this encounterJoint [facility] Hospital2023 History of Present illness Narrative* Yasmin Jackson MD - 06/18/2022 3:39 PM EDT Rn Intake offered: Patient declines. Nicolasa is a 47 year old who presents for an annual gynecologic exam without complaints. Hair loss stable since last year. Planning trip to [place]. Daughter getting this year. Menses: no menses - Mirena IUD. 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 Diet: tries to get fruits and veggies OB History T0 L0 SAB0 IAB0 Ectopic0 Multiple0 Live Births0 [employer] Up Helper History LMP: 07/27/2014, IUD Age at Menarche: Age at First : Age at Menopause: [employer] Up Helper History Comments: Sexual Activity: Yes; Male Contraception: [...] external genitalia normal, normal Bartholin's glands, urethra, Lincolnia's glands, no vulvar lesions, no cervical lesions, good vaginal support, physiologic discharge present, normal appearing perineal body and perianal region, IUD strings present BIMANUAL: uterus normal size, shape and consistency, no adnexal masses, and non-tender RECTOVAGINAL: deferred. NEURO: alert and oriented x3,exam grossly non-focal EXTREMITIES: normal ASSESSMENT/PLAN: 1) Health maintenance: Pap/HPV up to date. Mammogram ordered [facility] Nutrition, exercise and routine health maintenance exams reviewed. Calcium/vit d information provided. 2) Contraception: IUD. Contraceptive options reviewed and information provided. 3) STD screening: Declined STD check. 4) Follow up one year or sooner as needed Yasmin Crouch MD documented in this encounterJoint [facility]01-16-2023 [facility] Author Rose Sirca [facility] Note Date/Time July 03, 2024 12:1 0pm [facility] Medical Records Department [address] [place] [address] Anesthesia Postop Eval II 07/03/24 1050 MR#: [id number] Acct: [id number] Name: NICOLASA CASTILLO Rep #:[id number] : 1975 49 From: Rose Geiger PCP: Dr. Florian Johns MD Status:REG S DC Y Race: C Location: [place] [address]- Anesthesia Postop Eval I Sum Postop Eval Completion status Anesthesia document: Postop Eval 1 completed: Yes Anesthesia Postop Eval I Summary Anesthesia Postop Eval I Summary: Anesthesia Postop Eval I: Assessment Summary Airway patent Yes 07/03/24 09:33 [email or web address] Spontaneous unlabored Yes 07/03/24 09:33 [email or web address] respirations Mental status Awake 07/03/24 09:33 [email or web address] nausea No 07/03/24 09:33 [email or web address] Vomiting No 07/03/24 09:33 [email or web address] Anesthesia Postop Eval I: Fluid Summary Crystalloid volume administer 1,000 07/03/24 09:33 NURSING [email or web address] (ml) Colloids volume administered ( ml) Blood Product volume administered (ml) Total IV fluid infused 1,000 07/03/24 09:33 [email or web address] Anesthesia Postop Eval I: Summary Notes Anesthesia Complication No 07/03/24 09:33 [email or web address] Anesthesia Complication Comment: Post-operative progress note Anesthesia: Postop Eval II Evaluation Mental status: Awake Pain Level: 2 nausea: No Vomiting: No 07/03/24 1050 <Electronically signed by Rose brizuela> Date _ Rose De Santiago Signature: Date CC: ~ Signed [facility] Work Phone: Evaluation noteNo assessment information available [facility] Work Phone: Evaluation note* Diagnosis Encounter for gynecological examination (general) (routine) without abnormal findings- Primary Encounter for screening mammogram for breast cancer documented in this encounter [facility] note* Diagnosis Sterilization consult- Primary Other general counseling and advice for contraceptive management documented in this encounter [facility] note* Diagnosis Sterilization consult- Primary Other general counseling and advice for contraceptive management Abnormal uterine bleeding (AUB) Dysmenorrhea Pre-op exam Preoperative examination, unspecified documented in this encounter [facility] Discharge instructions Additional Instructions Implant Used?: [facility] Work Phone: Reason for referral (narrative)* Diagnostic Procedure Only (Routine) - Pending Review Specialty Diagnoses / Procedures Referred By Contdesirae t Referred To Contact [facility] Diagnoses Encounter for screening mammogram for breast cancer Procedures RORY SCREENING SCREENING MAMMOGRAPHY BI 2-VIEW BREAST INC CAD Yasmin Kee MD [address] [place] [address] [facility] [address] [place] [address] Referral ID Status Reason Start Date Expiration Date Visits Requested Visits Authorized [id number] Pending Review Auto-Generat ed Referral 06/18/2022 07/18/2023 1 1 [facility] for referral (narrative)No reason for referral information availableSelect [facility] [place] Work Phone: Summary Purpose Family History No Family History Records Found Relationship Condition Age at Onset Recorded Date/T elvira Not Specified Arthritis Unknown mother Coronary artery disease Unknown Hypertension Unknown brother Hypertension Unknown Diabetes mellitus Unknown Advance Directives No Advanced Directives Records Found Advance Directive Response Recorded Date/ Time Advance Directives No June 17, 2 014 2:14pm Living Will No February 21 4:30pm Power of Leather Repairer No February 22, 2020 4:30pm Advance Directive Response Recorded Date/ Time Advance Directives No June 17, 2 014 1:14pm Living Will No November 23rd, 2 020 3:30pm Power of Leather Repairer No February 22, 2020 3:30pm Advance Directive Response Recorded Date/ Time Advance Directives No June 17, 2 014 1:14pm Living Will No April 08 1:20pm Power of Leather Repairer No April 08, 2 024 1:20pm Advance Directive Response Recorded Date/ Time Living Will No June 10, 2024 8:11am Do you have a Healthcare Power of Leather Repairer? No June 10, 2024 8:11am Advance Directives No June 17, 2 014 2:14pm Chief Complaint and Reason for Visit Chief Complaint PARESTHESIA OF RIGHT HAND PARESTHESIA OF RIGHT HAND Chief Complaint PARESTHESIA OF RIGHT HAND PARESTHESIA OF RIGHT HAND SCREENING Chief Complaint WRIST GANGLION CYST REMOVAL Chief Complaint Admit Date Laparoscopic, Salpingectomy, possible Li letta IUD July 03, 2024 6:49am Additional Source Comments INFORMATION SOURCE (unrecogn ized section and content) DATE CREATED AUTHOR 09/19/2017 [email or web address] DATE CREATED AUTHOR AUTHOR'S ORGANIZ ATION 07/11/2024 [facility] DATE CREATED AUTHOR AUTHOR'S ORGANIZ ATION 09/22/2024 [facility] Goals (unrecognized section and content) Goals may be documented in a n alternate sectionGoals may be documented in an alternate sectionGoals may be documented in an alternate sectionGoals may be documented in an alternate sectionGoals may be documented in an alternate sectionGoals may be documented in an alternate sectionGoals may be documented in an alternate section Care Teams (unrecognized sec tion and content) Team Status: Active Member Role Status Dates Dr. Luis E Lopez MD Family Provider Active Dr. Florian Johns MD Primary Care Provider Active Team Status: Active Member Role Status Dates Dr. Florian Johns MD Primary Care Provi ab, Referring Provider, Other Provider Active Dr. Stephen Dawson DO Attending Provider Active Team Status: Inactive Member Role Status Dates Dr. Florian Johns MD Primary Care Provi ab, Attending Provider, Referring Provider Active Team Status: Inactive Member Role Status Dates Dr. Florian Johns MD Primary Care Provider, Attending Provider Active Glass Setter Relationship Specialty Start Date End Date Luis E Lopez Chi PCP - General Family Medicine 12/12/12 Team Status: Inactive Member Role Status Dates Dr. Florian Johns MD Primary Care Provider Active Dr. Yasmin Crouch MD Attending Provider Ac tive Team Status: Active Member Role Status Dates Dr. Florian Johns MD Primary Care Provi ab, Referring Provider, Other Provider Active Dr. Doa Dawson DO Attending Provider Active Team Status: Inactive Member Role Status Dates Dr. Florian Johns MD Primary Care Provider Active Dr. Neo Youssef DO Attending Provider, Referring Provider Active Glass Setter Relationship Specialty Start Date End Date Luis E Lopez Chi PCP - General Family Medicine 12/12/12 Glass Setter Relationship Specialty Start Date End Date Luis E Lopez Chi PCP - General Family Medicine 12/12/12 Glass Setter Relationship Specialty Start Date End Date Luis E Lopez Chi PCP - General Family Medicine 12/12/12 Team Status: Active Member Role Status Dates Dr. Florian Johns MD Primary Care Provider Active Team Status: Inactive Member Role Status Dates Dr. Florian Johns MD Primary Care Provider Active Start: July 03, 2024 End: July 03, 2024 Dr. Yasmin Crouch MD Attending Provider Ac tive Start: July 03, 2024 End: July 03, 2024 Dr. Yasmin Crouch MD Referring Provider Ac tive Start: July 03, 2024 End: July 03, 2024 Glass Setter Relationship Specialty Start Date End Date Luis E Lopez Chi PCP - General Family Medicine 12/12/12 Source Comments (unrecognize d section and content) In the event this informatio n is protected by the Federal Confidentiality of Alcohol and Drug Abuse Patient Records regulations: The Federal rules restrict any use of the information to criminally investigate or prosecute any alcohol or drug abuse patient.[facility] the event this information is protected by the Federal Confidentiality of Alcohol and Drug Abuse Patient Records regulations: The Federal rules restrict any use of the information to criminally investigate or prosecute any alcohol or drug abuse patient.[facility] the event this information is protected by the Federal Confidentiality of Alcohol and Drug Abuse Patient Records regulations: The Federal rules restrict any use of the information to criminally investigate or prosecute any alcohol or drug abuse patient.[facility] the event this information is protected by the Federal Confidentiality of Alcohol and Drug Abuse Patient Records regulations: The Federal rules restrict any use of the information to criminally investigate or prosecute any alcohol or drug abuse patient.[facility] the event this information is protected by the Federal Confidentiality of Alcohol and Drug Abuse Patient Records regulations: The Federal rules restrict any use of the information to criminally investigate or prosecute any alcohol or drug abuse patient.[facility] the event this information is protected by the Federal Confidentiality of Alcohol and Drug Abuse Patient Records regulations: The Federal rules restrict any use of the information to criminally investigate or prosecute any alcohol or drug abuse patient.[facility] the event this information is protected by the Federal Confidentiality of Alcohol and Drug Abuse Patient Records regulations: The Federal rules restrict any use of the information to criminally investigate or prosecute any alcohol or drug abuse patient.[facility] Reason for Visit (unrecogniz ed section and content) Reason Comments Well Woman Reason Comments Results Reason Comments Surgery Consult Reason Comments Pre-Op Visit FOR RECORDS PERTAINING TO PATIENTS WHO ARE [...] BE BASED ON THE PRIMARY CLINICAL RECORDS. [facility]. provides no warranty or guarantee of the accuracy or completeness of information in this document.
== END | disposition home or self-care (01) ==
LOC: OPBI 09-23 07:25
PROVIDERS: PCP Family Medicine; Referring Provider Obstetrics & Gynecology; Visit Provider Obstetrics & Gynecology
DX: Z12.31 Encounter for screening mammogram for malignant neoplasm of breast (principal)
CPT/HCPCS: 77063; 77067

== ENCOUNTER 2025-01-18 06:26 | Day surgery (SDC) | payer OTHER, SELFPAY ==
[2025-01-18] VITALS (7 sets, daily range): BP systolic 107–122; BP diastolic 65–83; PULSE 57–72; RESP 16–20; TEMP 36.1–36.8; O2SAT 97–99; BMI 30.5
--- OUTSIDE RECORDS SUMMARY | 2025-01-18 06:50 | XMS RPT_ITS | CCD ---
Author Organization [facility] Care Team Providers Care Inbound Call Center Representative Name Role Phone SUNDAR GUARDADO MD Unavailable Unavailable UNASSIGNED, DOCTOR Unavailable Unavailable Dr. Florian Johns Primary Care Provider Andreas, Dr. Du Referring Provider Andreas, Dr. Du Other Provider Dr. Stephen Dawson Attending Provider John, Luis E Chi Primary Care Provider Dr. Florian Johns Primary Care Provider Dr. Florian Johns Referring Provider Andreas, Dr. Du Other Provider Dr. Stephen Dawson Attending Provider Dr. Dao Dawson Attending Provider John, Luis E Chi Primary Care Provider Andreas LOVE, Dr. Du Primary Care Provider Dr. Yasmin Crouch MD Attending Provid er Dr. Yasmin Crouch MD Referring Provid er Dr. Matthew Moyer MD Attending Provider Dr. Matthew Moyer MD Referring Provider YASMIN KEE Attending Unavail able JOHN, LUIS E CHI Primary Care Unavailable JOHN, LUIS E CHI Primary Care Unavailable YASMIN KEE Attending Unavail able JOHN, LUIS E CHI Primary Care Unavailable YASMIN KEE Attending Unavail able Spittle, Zak Attending Unavailable Florian Johns Primary Care Unavailable Matthew Moyer Attending Unavailable Matthew Moyer Referring Unavailable Florian Johns Primary Care Unavailable Andreas, Florian Primary Care Unavailable Yasmin Crouch Attending Unavail able Shresthaidre Referring Unavail able Matthew Moyer Attending Unavailable Matthew Moyer Referring Unavailable Florian Johns Primary Care Unavailable Yasmin Crouch Attending Unavail able Saurav Crouchre Referring Unavail able Florian Johns Primary Care Unavailable Medications Current Medications Medication Drug Class(es) Dates Sig (Normalized) Sig (Original) allopurinol 100 mg oral tablet (20 sources) Xanthine Oxidase Inhibitor Start: 06-10-2024 take 1 tablet by mouth once daily Allopurinol 100 mg tablet Active 100 mg PO DAILY June 10, 2024 12:00am Start: 03-18-2017 End: 06-10-2024 take 1 tablet by mouth once daily Allopurinol 300 mg tablet Discontinued 300 mg PO daily March 18, 2017 1:00am June 10, 2024 8:10am gout Start: 01-22-2006 End: 03-18-2017 take 1 tablet by mouth once daily at mealtime Allopurinol 100 MG tablet Discontinued 100 mg PO DAILY WITH MEALS June 17, 2013 12:00am March 18, 2017 7:18pm Comment on above: Take one(1) tablet d aily. 24 hr buPROPion hydrochloride 300 mg extended release oral tablet (19 sources) Aminoketone Start: take 1 tablet by [...] 24, 2019 12:00am June 10, 2024 8:09am depression Comment on above: Take 1 tablet by alexander once daily. gabapentin 300 mg oral capsule (20 sources) Anti-epileptic Agent Start: 06-10-2024 take 1 capsule by mouth at bedtime Gabapentin 300 mg capsule Active 300 mg PO AT BEDTIME June 10, 2024 12:00am Start: 03-17-2020 End: 04-08-2023 take 1 capsule by mouth twice daily Gabapentin 100 mg capsule Discontinued 100 mg PO TWICE A DAY 60 30 1 April 15, 2020 2:38pm April 08, 2023 2:19pm levonorgestrel 0.794534 mg/hr intrauterine system (7 sources) Progestin, Progestin-containing Intrauterine Device levonorgestrel (MIRENA) 21 mcg/24 hours (8 yrs) 52 mg IUD 1 Each by INTRAUTERINE route one time only. Active Comment on above: 1 Each by INTRAUTERI NE route one time only. levothyroxine sodium 0.088 mg oral tablet (17 sources) l-Thyroxine Start: 2005 take 1 tablet by mouth once daily Levothyroxine 88 MCG tablet Active 88 ug PO DAILY June 17, 2013 12:00am thyroid Comment on above: Take one(1) tablet d aily. meloxicam 15 mg oral tablet (2 sources) Nonsteroidal Anti-inflammatory Drug Start: 2024 take 1 tablet by mouth once daily Meloxicam 15 mg tablet Active 15 mg PO DAILY June 10, 2024 12:00am Xn-Er-Flnp-Fa-Ca Carb-Vit K (8 sources) Start: 2019 Uj-Vx-Qirm-Fa-Ca Carb-Vit K Active 1 EACH PO DAILY February 10, 2020 2:09pm Start: 02-10-2020 Dc-Ny-Wvgu-Fa- Ca Carb-Vit K Active 1 EACH PO DAILY February 10, 2020 1:00am Start: 02-10-2020 Wo-Ct-Kfax-Fa- Ca Carb-Vit K Active 1 EACH PO DAILY February 10, 2020 12:00am Completed/Discontinued Medications Medication Drug Class(es) Dates Sig (Normalized) Sig (Original) acetaminophen 325 mg / oxyCODONE hydrochloride 5 mg oral tablet (20 sources) Opioid Agonist Start: 04-20-2020 End: 04-08-2023 Oxycodone-Acetaminoph en (Percocet) 5-325 mg tablet Discontinued 1 {tbl} PO TWICE A DAY as needed for pain (scale score 7-10) 14 0 April 20, 2020 April 08, 2023 2:19pm Other acute postprocedural pain Start: 03-30-2020 End: 04-13-2020 Oxycodone-Acetaminophen (Per cocet) 5-325 mg tablet Discontinued 1 {tbl} PO TWICE A DAY as needed for pain (scale score 7-10) 14 0 March 30, 2020 April 13, 2020 4:42pm Other acute postprocedural pain Start: 03-17-2020 End: 03-24-2020 Oxycodone-Acetaminophen (Per cocet) 5-325 mg tablet Discontinued 1 {tbl} PO THREE TIMES A DAY as needed for pain (scale score 7-10) 21 7 0 March 17, 2020 March 23, 2020 1:00am March 24, 2020 1:02am Other acute postprocedural pain Start: 03-02-2020 End: 03-09-2020 Oxycodone-Acetaminophen (Per cocet) 5-325 mg tablet Discontinued 1 {tbl} PO 4 TIMES DAILY as needed for pain (scale score 7-10) 28 7 0 March 02, 2020 March 08, 2020 1:00am March 09, 2020 1:02am Other acute postprocedural pain Start: 02-23-2020 End: 03-01-2020 Oxycodone-Acetaminophen 1 TA BLET tablet Discontinued 1 {tbl} PO EVERY 4 HOURS NEEDED as needed for Pain Score 6-10 40 7 0 February 23, 2020 February 29, 2020 1:00am March 01, 2020 1:02am Other acute postprocedural pain 40 tabs (forty) Start: 02-23-2020 End: 03-01-2020 take 1 tablet by mouth every four hours as needed Oxycodone-Acetaminophen Discontinued 1 TABLET PO EVERY 4 HOURS NEEDED 40 7 February 23, 2020 March 01, 2020 12:02am [...] 6:22pm ascorbic acid 500 mg oral tablet (10 sources) Vitamin C Start: 03-19-2017 End: 09-24-2019 take 1 tablet by mouth once daily Ascorbic Acid (Vitamin C) (Vitamin C With Kaylee Hips) 500 mg tablet Discontinued 500 mg PO daily March 19, 2017 1:00am September 24, 2019 4:15pm aspirin 81 mg delayed release oral tablet (10 sources) Platelet Aggregation Inhibitor, Nonsteroidal Anti-inflammatory Drug Start: 03-19-2017 End: 09-24-2019 Aspirin (Adult Low Dose Aspirin) 81 mg tablet,delayed release (DR/EC) Discontinued 81 mg PO daily March 19, 2017 1:00am September 24, 2019 4:18pm atorvastatin 80 mg oral tablet (11 sources) HMG-CoA Reductase Inhibitor Start: 03-18-2017 End: [...] once daily. cefadroxil 500 mg oral capsule (10 sources) Cephalosporin Antibacterial Start: End: take 1 capsule by mouth twice daily Cefadroxil 500 MG capsule Discontinued 500 mg PO TWICE A DAY 10 February 23, 2020 1:00am March 09, 2020 2:36pm cholecalciferol 0.05 mg oral capsule (10 sources) Vitamin D Start: End: take 1 capsule by mouth once Cholecalciferol (Vitamin D3) 2,000 unit capsule Discontinued 2000 U PO ONCE March 19, 2017 1:00am September 24, 2019 4:15pm 24 hr desvenlafaxine 100 mg extended release oral tablet (11 sources) Serotonin and Norepinephrine Reuptake Inhibitor Start: [...] once daily. diazePAM 5 mg oral tablet (10 sources) Benzodiazepine Start: End: take 1 tablet by mouth at bedtime as needed for anxiety Diazepam (Valium) 5 mg tablet Discontinued 5 mg PO AT BEDTIME as needed for anxiety 5 0 February 17, 2020 1:00am February 23, 2020 2:58pm 5 tabs (five) docusate sodium 100 mg oral capsule (10 sources) Start: End: take 1 capsule by mouth twice daily as needed for constipation Docusate Sodium 100 MG capsule Discontinued 100 mg PO TWICE DAILY NEEDED as needed for Constipation 10 0 June 18, 2013 12:00am March 18, 2017 7:23pm DULoxetine 30 mg delayed release oral capsule (10 sources) Serotonin and Norepinephrine Reuptake Inhibitor Start: End: take 1 capsule by mouth once daily Duloxetine (Cymbalta) 30 mg capsule,delayed release(DR/EC) Discontinued 30 mg PO daily March 18, 2017 1:00am September 24, 2019 4:16pm empagliflozin 25 mg oral tablet (10 sources) Sodium-Glucose Cotransporter 2 Inhibitor Start: End: take 1 tablet by mouth once daily in the morning Empagliflozin (Jardiance) 25 mg tablet Discontinued 25 mg PO EVERY MORNING March 18, 2017 1:00am September 24, 2019 4:16pm fenofibric acid 135 mg delayed release oral capsule (10 sources) Peroxisome Proliferator Receptor alpha Agonist Start: End: take 1 capsule by mouth once daily Fenofibric Acid (Choline) 135 MG capsule,delayed release(DR/EC) Discontinued 135 mg PO DAILY June 17, 2013 12:00am March 18, 2017 7:22pm metFORMIN hydrochloride 1000 mg oral tablet (11 sources) Biguanide Start: 014 End: 017 Metformin 1,000 MG tablet Discontinued 1000 mg [...] mg / SITagliptin 50 mg oral tablet (10 sources) Biguanide, Dipeptidyl Peptidase 4 Inhibitor Start: 7 End: 0 Sitagliptin Phos-Metformin (Janumet) 50-1,000 mg tablet Discontinued 1 {tbl} PO TWICE A DAY March 18, 2017 1:00am September 24, 2019 4:16pm Es-Jv-Otvh-Fa-Ca Carb-Vit K 1 EACH tablet (2 sources) Start: 0 End: 5 take 1 tablet by mouth once daily Yg-Vf-Sopi-Fa-Ca Carb-Vit K 1 EACH tablet Discontinued 1 NMA PO DAILY February 10, 2020 1:00am June 10, 2024 8:10am vitamin Start: 02-10-2020 End: 06-10-2024 take 1 tablet by mouth once daily Mm-Zo-Wwmg-Fa-Ca Carb-Vit K 1 EACH tablet Discontinued 1 NMA PO DAILY February 10, 2020 1:00am June 10, 2024 8:10am omeprazole 20 mg delayed release oral capsule (10 sources) Proton Pump Inhibitor Start: 03-18-2017 End: 09-24-2019 take 1 capsule by mouth once daily Omeprazole Magnesium 20 mg capsule,delayed release(DR/EC) Discontinued 20 mg PO daily March 18, 2017 1:00am September 24, 2019 4:16pm potassium gluconate 2.5 meq oral tablet (10 sources) Start: 03-19-2017 End: 09-24-2019 take 1 tablet by mouth once daily Potassium Gluconate 595 mg (99 mg) tablet Discontinued 595 mg PO daily March 19, 2017 1:00am September 24, 2019 4:16pm promethazine hydrochloride 25 mg oral tablet (10 sources) Phenothiazine Start: 06-18-2013 End: 03-18-2017 take 1 tablet by mouth every four hours as needed for nausea Promethazine 25 MG tablet Discontinued 25 mg PO EVERY 4 HOURS NEEDED as needed for Nausea 10 0 June 18, 2013 12:00am March 18, 2017 7:22pm rosuvastatin calcium 5 mg oral tablet (10 sources) HMG-CoA Reductase Inhibitor Start: 06-17-2013 End: 03-18-2017 take 1 tablet by mouth every other day Rosuvastatin 5 MG tablet Discontinued 5 mg PO EVERY OTHER DAY June 17, 2013 12:00am March 18, 2017 7:21pm spironolactone 25 mg oral tablet (11 sources) Aldosterone Antagonist Start: 06-17-2013 End: 06-18-2022 take 1 tablet by mouth twice daily Spironolactone 25 MG tablet Discontinued 25 mg PO TWICE A DAY June 17, 2013 12:00am March 18, 2017 7:22pm Comment on above: Take 25 mg by mouth twice daily. valsartan 320 mg oral tablet (11 sources) Angiotensin 2 Receptor Timur Start: 06-17-2013 End: 06-18-2022 take 1 tablet by mouth once daily Valsartan 320 MG tablet Discontinued 320 mg PO DAILY June 17, 2013 12:00am September 24, 2019 4:16pm Comment on above: Take 320 mg by mouth once daily. vitamin b12 1 mg oral tablet (10 sources) Vitamin B12 Start: 03-19-2017 End: 09-24-2019 take 1 tablet by mouth once daily Cyanocobalamin (Vitamin B-12) (Vitamin B-12) 1,000 mcg tablet Discontinued 1000 ug PO daily March 19, 2017 1:00am September 24, 2019 4:16pm Problems Active Problems Problem Classification Problem Date Documented Da te Episodic/Chronic Complications of surgical procedures or medical care (10 sources) Non-healing surgical wound; Translations: [Other complications of procedures, not elsewhere classified, initial encounter] 04-15-2020 Episodic Comment on above: right breast at [place] e Coronary atherosclerosis and other heart disease (1 source) Coronary atherosclerosis and other heart disease Onset: 06-11-2017 Diabetes mellitus without complication (17 sources) Type 2 diabetes mellitus without complication; Translations: [Type 2 diabetes mellitus without complications] Onset: 12-24-2012 09-24-2019 Chronic Diabetes mellitus without complication (1 source) Diabetes mellitus without complication Onset: 06-11-2017 Disorders of lipid metabolism (17 sources) Hyperlipidemia; Translations: [Hyperlipidemia, unspecified] Onset: 12-24-2012 09-24-2019 Chronic Esophageal disorders (1 source) Esophageal disorders Onset: 06-11-2017 Essential hypertension (17 sources) Hypertensive disorder; Translations: [Essential (primary) hypertension] Onset: 12-24-2012 09-24-2019 Chronic Comment on above: NO MEDS SINCE 2018 Essential hypertension (1 source) Essential hypertension Onset: 06-11-2017 Menstrual disorders (8 sources) Irregular periods; Translations: [Irregular menstruation, unspecified] Onset: 12-24-2012 12-24-2012 Chronic Nonmalignant breast conditions (10 sources) Large breast; Translations: [Hypertrophy of breast] 02-21-2020 Episodic Nonspecific chest pain (10 sources) Chest pain; Translations: [Chest pain, unspecified] 10-12-2017 Episodic Other female genital disorders (1 source) Abnormal uterine bleeding; Translations: [Abnormal uterine and vaginal bleeding, unspecified] 06-09-2024 Chronic Other gastrointestinal disorders (10 sources) History of bypass of stomach; Translations: [Bariatric surgery status] 02-23-2020 Episodic Other inflammatory condition of skin (10 sources) Intertrigo; Translations: [Erythema intertrigo] 02-21-2020 Episodic Comment on above: inframammary intertr igo Other non-traumatic joint disorders (10 sources) Shoulder pain; Translations: [Pain in unspecified shoulder] 02-21-2020 Episodic Comment on above: bilateral shoulder p ain from shoulder grooving from the weight of her breasts on her bra straps Other nutritional; endocrine; and metabolic disorders (10 sources) Obesity; Translations: [Obesity, unspecified] 03-18-2017 Chronic Other nutritional; endocrine; and metabolic disorders (7 sources) Metabolic syndrome X; Translations: [Metabolic syndrome] Onset: 12-24-2012 12-24-2012 Chronic Other nutritional; endocrine; and metabolic disorders (10 sources) Excessive weight loss; Translations: [Abnormal weight loss] 02-21-2020 Episodic Comment on above: 100 lbs from gastric bypass surgery Residual codes; unclassified (10 sources) Obstructive sleep apnea syndrome; Translations: [Obstructive sleep apnea (adult) (pediatric)] 09-24-2019 Chronic Thyroid disorders (7 sources) Hypothyroidism; Translations: [Hypothyroidism, unspecified] Onset: 12-24-2012 12-24-2012 [...] of cervix (HGSIL)] Onset: 01-14-2013 01-14-2013 Episodic Contraceptive and procreative management (3 sources) Patient encounter status; Translations: [Encounter for other general counseling and advice on contraception] Onset: 07-07-2024 04-21-2024 Episodic Other screening for suspected conditions (not mental disorders or infectious disease) (14 sources) Electrocardiogram abnormal; Translations: [Abnormal electrocardiogram [ECG] [EKG]] Onset: 09-28-2024 03-18-2017 Episodic Spondylosis; intervertebral disc disorders; other back problems (20 sources) Chronic thoracic back pain; Translations: [Pain in thoracic spine] Onset: 07-30-2024 02-21-2020 Episodic Unclassified (1 source) Morbid (severe) obesity due to excess calories; Translations: [Morbid (severe) obesity due to excess calories] Onset: 06-11-2017 Results Test Name Value Interpretation Reference Range Facility [facility] 01-04-2025 CNOV Office Visit (OBGYWM ) NICOLASA CASTILLO ([id number]) 1975 F Date Time Provider Department 01/04/25 3:50 PM YASMIN KEE OBGYWM During your visit today, we recorded the following information about you: Blood pressure Weight Height 122/74 87.1 kg 1.72 m Yasmin Kee MD 01/04/2025 4:24 PM Signed Plunger Shovel Operator offered: Patient declines. Nicolasa is a 49 year old who presents for an annual gynecologic exam without complaints. 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 PAST MEDICAL HISTORY Diagnosis Date Diabetes (HCC) Dysmetabolic syndrome Gout Hypercholesteremia Hypertension Hypothyroidism PAST SURGICAL HISTORY Procedure Laterality Date ASPIRATIONAND/INJECTIO N GANGLION CYST ANY LOCATJ Right 04/2023 removal cyst INSERTION OF IUD 07/03/2024 Rose PEREIRA 03/23/2013 Removed 07/03/24 by DM at [facility] OFFICE LEEP 02/13/2013 Negative PAST SURGICAL HISTORY OF 05/2017 [facility] REDUCTION OF LARGE BREAST Bilateral 2020 SALPINGECTOMY Bilateral 07/03/2024 Laparoscopic/Lysis of adhesions/IUD removal/IUD-Liletta insertion VAGINOSCOPY 01/14/2013 GILES 3 VAGINOSCOPY 01/06/2014 FAMILY [...] skin retraction. Allergies and current medication updated:Yes SENSITIVE EXAM: The sensitive examination was discussed with the Patient or Patient's Authorized Ethnic Origins Teacher. As applicable, any other physician, advance practice provider, medical student, or other health professional student that will be observing or involved in the sensitive examination for educational or training purposes was discussed with the Patient or Authorized Ethnic Origins Teacher. The Patient or Authorized Ethnic Origins Teacher has agreed to proceed with the sensitive examination. (Sensitive examination includes inspection and/or palpation of the breasts, pelvis, prostate and anorectal regions). EXAM: BP 122/74 Ht 5' 7.717 (1.72m) Wt 192 lb (87.1kg) LMP 07/27/2014 BMI 29.44 kg/(m2). GENERAL: pleasant, female in no apparent distress HEENT: Normocephalic, atraumatic, mucus membranes moist, and no lesions NECK: Supple, full range of motion, no adenopathy, and thyroid normal DERMATOLOGY: Normal, without lesions, non-icteric, and non-hirsute BREAST: soft, non-tender, symmetric, no dominant mass, normal nipple-areolar complex, no lymphadenopathy, and no nipple discharge CHEST: Normal inspiratory effort ABDOMEN: soft, non-tender, and no masses PELVIC: external genitalia normal, normal Bartholin's glands, urethra, [place]'s glands, no vulvar lesions, no cervical lesions, good vaginal support, physiologic discharge present, normal appearing perineal body and perianal region BIMANUAL: uterus normal size, shape and consistency, no adnexal masses, and non-tender RECTOVAGINAL: deferred. NEURO: alert and oriented x3,exam grossly non-focal EXTREMITIES: normal ASSESSMENT/PLAN: 1) Health maintenance: Pap/HPV up to date. Mammogram up to date . Nutrition, exercise and routine health maintenance exams reviewed. Colon cancer screening: colonoscopy ordered 2) Contraception: IUD and tubal sterilization. Contraceptive options reviewed and information provided. 3) STD screening: Declined STI check. 4) Follow up one year or sooner as needed Yasmin Crouch MD Allergies As of Date: 01/04/2025 (No Known Allergies) Date Reviewed: 01/04/2025 Reviewed by: Brianne Morel MA - Fully Assessed Reason for Visit: Yearly Exam [187] Primary Visit Diagnosis:Encounter for gynecological examination (general) (routine) without abnormal findings [Z01.419] Other V (more content not included)... Normal [facility] Breast imaging reportOrdered By: Sherin Mas on 09-22-2024 Study report [facility] [address] [place] [address] SCRN MAMM (CAD)W/MARISOL BILAT MR#: [id number] Acct: [id number] Name: NICOLASA CASTILLO Rep #: [id number] : 1975 F 49 From: Nii Martinez MD PCP: Dr. Florian Johns MD Status: PRE [facility] Study:SCRN MAMM (CAD)W/MARISOL BILAT Date of Vinny m: 09/22/24 Exam# [id number] Ordering Dr: Yasmin Holden MD EXAM: SCRN MAMM (CAD)W/MARISOL BILAT DATE: 09/22/2024 CLINICAL HISTORY: F, Age 49 y/o , SCREEN TECHNIQUE: SCRN MAMM (CAD)W/MARISOL BILAT COMPARISON: Prior exam(s) were compared FINDINGS: TISSUE DENSITY: The breast tissue is composed of scattered areas of fibroglandular density. Bilateral Breast Mammographic Findings: No suspicious masses, calcifications or other abnormalities are identified. BI/SCRN MAMM (CAD)W/MARISOL BILAT IMPRESSION: No mammographic evidence of malignancy in either breast OVERALL FINAL ASSESSMENT BI-RADS 1: NEGATIVE. RECOMMEND ANNUAL MAMMOGRAPHIC SCREENING. RECOMMENDATION: Routine annual follow-up in 1 Year A letter with findings and recommendations will be mailed to the patient. Reading Location: [id number] CC: Dr Yasmin Crouch MD; Dr. Florian Johns MD ~ Parts Room Associate: Signed [facility] SCRN MAMM (CAD)W/MARISOL BILATo n 09-22-2024 SCRN MAMM (CAD)W/MARISOL BILAT [facility] [address] [place] [address] [id number] SCRN MAMM (CAD)W/MARISOL BILAT MR#: [id number] Acct: [id number] Name: NICOLASA CASTILLO Rep #: [id number] : 1975 F 49 From: Sherin Cardenas i, MD PCP: Dr. Florian Johns MD Status: PRE CLI Study: SCRN MAMM (CAD)W/MARISOL BILAT Date of Exam: 08/31 07/24 Exam# [id number] Ordering Dr: Chauhan MD EXAM: SCRN MAMM (CAD)W/MARISOL BILAT DATE: 09/22/2024 CLINICAL HISTORY: F, Age 49 y/o , SCREEN TECHNIQUE: SCRN MAMM (CAD)W/MARISOL BILAT COMPARISON: Prior exam(s) were compared FINDINGS: TISSUE DENSITY: The breast tissue is composed of scattered areas of fibroglandular density. Bilateral Breast Mammographic Findings: No suspicious masses, calcifications or other abnormalities are identified. BI/SCRN MAMM (CAD)W/MARISOL BILAT IMPRESSION: No mammographic evidence of malignancy in either breast OVERALL FINAL ASSESSMENT BI-RADS 1: NEGATIVE. RECOMMEND ANNUAL MAMMOGRAPHIC SCREENING. RECOMMENDATION: Routine annual follow-up in 1 Year A letter with findings and recommendations will be mailed to the patient. Reading Location: [id number] CC: Dr Yasmin Crouch MD; Dr. Florian Johns MD Parts Room Associate: Signed [facility] Cerv Spine Obl/Flex/Ext Comp on 07-27-2024 Cerv Spine Obl/Flex/Ext Comp [facility] [address] [place] [address] Cerv Spine Obl/Flex/Ext Comp MR#: [id number] Acct: [id number] Name: NICOLASA CASTILLO Rep #: [id number] : 1975 F 49 From: Chin Power MD PCP: Dr. Florian Johns MD Status: REG CLI Study: Cerv Spine Obl/Flex/Ext Comp Date of Exam: Exam# [id number] Ordering Dr: Matthew Moyer MD PROCEDURE: CERV [...] IMPRESSION: NEGATIVE CERVICAL SPINE. Disclaimer: Reading Location: [facility] CC: Dr. Matthew Moyer MD; Dr. Florian Johns MD Parts Room Associate: Signed [facility] CNPNon 07-09-2024 CNPN Telephone (OBGYWM) KAMINICOLASA Irlanda ([id number]) 1975 F Date Time Provider Department 07/09/24 YASMIN KEE During your visit today, we recorded the following information about you: Yasmin eKe MD 07/09/2024 2:48 PM Signed Please notify patient that pathology was benign from lap bilateral salpingectomy. She did have small cyst on one of her tubes that was c/w serous cystadenoma that I removed- nothing further. How is she feeling? No need for post op unless concerns. Jenn Reynolds, RN 07/09/2024 3:05 PM Signed Pt notified and [...] Status:Closed by JENN REYNOLDS on 07/09/24 Normal [facility] Anion gap in Serum or Plasma Ordered By: Yasmin Crouch on 07-03-2024 Anion gap [Moles/Vol] 12 mmol/L 5-15 [facility] BUN/creatinine ratioOrdered By: Yasmin Crouch on 07-03-2024 Urea nitrogen/Creatinine [Mass ratio] 31.6 mg/mg High - [facility] Basic Metabolic Profile (BMP )on 07-03-2024 BUN/CRE 31.6 RATIO High - [facility] Comment on above: Performed By: #### L [id number], L500.2500, L400.7600 #### [facility] [address] [place], [address] Calcium [Mass/Vol] 9.2 mg/dL Normal 7.6-11.0 [facility] Comment on above: Performed By: #### L [id number], L500.2500, L400.7600 #### [facility] [address] [place], [address] Chloride [Moles/Vol] 108 mmol/L Normal 98-108 [facility] Comment on above: Performed By: #### L 501.9520, L500.2500, L400.7600 #### [facility] [address] [place], [address] CO2 [Moles/Vol] 22.5 mmol/L Normal 21.0-32.0 [facility] Comment on above: Performed By: #### L 501.9520, L500.2500, L400.7600 #### [facility] [address] [place], [address] Creatinine [Mass/Vol] 0.66 mg/dL Low 0.70-1.20 [facility] Comment on above: Performed By: #### L 501.9520, L500.2500, L400.7600 #### [facility] [address] [place], [address] ECRCL 119.64 ml/min Normal 50-250 [facility] Comment on above: Performed By: #### L 501.9520, L500.2500, L400.7600 #### [facility] [address] [place], [address] GAP 12 Normal 5-15 [facility] Comment on above: Performed By: #### L 501.9520, L500.2500, L400.7600 #### [facility] [address] [place], [address] GFR/1.73 sq M.predicted among non-blacks MDRD (S/P/Bld) [Vol rate/Area] 108 mL/min/{1.73_m2} Normal >60 [facility] Comment on above: Result Comment: mL/m in/1.73m2 CKD-EPI Creatinine Equation (2020) Performed By: #### L 501.9520, L500.2500, L400.7600 #### [facility] [address] [place], [address] Glucose [Mass/Vol] 94 mg/dL Normal 70-99 [facility] Comment on above: Performed By: #### L 501.9520, L500.2500, L400.7600 #### [facility] [address] [place], [address] Potassium [Moles/Vol] 3.9 mmol/L Normal 3.3-5.1 [facility] Comment on above: Performed By: #### L 501.9520, L500.2500, L400.7600 #### [facility] [address] [place], [address] Sodium [Moles/Vol] 142 mmol/L Normal 133-145 [facility] Comment on above: Performed By: #### L 501.9520, L500.2500, L400.7600 #### [facility] [address] [place], [address] Urea nitrogen [Mass/Vol] 21 mg/dL High 4-19 [facility] Comment on above: Performed By: #### L 501.9520, L500.2500, L400.7600 #### [facility] [address] [place], [address] CBC-Complete Blood Cnt No Di ffon 07-03-2024 Erythrocyte distribution width (RBC) [Ratio] 13.4 % Normal 11.6-14.6 [facility] Comment on above: Performed By: #### L 100.0500 ####[facility] [address] [place], [address] Hematocrit (Bld) [Volume fraction] 33.4 % Low 37-47 [facility] Comment on above: Performed By: #### L 100.0500 ####[facility] [address] [place], [address] Hemoglobin (Bld) [Mass/Vol] 11.0 g/dL Low 12.0-15.0 [facility] Comment on above: Performed By: #### L 100.0500 ####[facility] [address] [place], [address] MCH (RBC) [Entitic mass] 29.3 pg Normal 27.0-32.0 [facility] Comment on above: Performed By: #### L 100.0500 ####[facility] [address] [place], [address] MCHC (RBC) [Mass/Vol] 32.9 g/dL Normal 32-36 [facility] Comment on above: Performed By: #### L 100.0500 ####[facility] [address] [place], [address] MCV (RBC) [Entitic vol] 88.8 fL Normal 81-99 [facility] Comment on above: Performed By: #### L 100.0500 ####[facility] [address] [place], [address] Platelet mean volume (Bld) [Entitic vol] 10.1 fL Normal 6.2-12.0 [facility] Comment on above: Performed By: #### L 100.0500 ####[facility] [address] [place], [address] Platelets (Bld) [#/Vol] 246 10*3/uL Normal 150-450 [facility] Comment on above: Performed By: #### L 100.0500 ####[facility] [address] [place], [address] RBC (Bld) [#/Vol] 3.76 10*6/uL Low 4.2-5.4 [facility] Comment on above: Performed By: #### L 100.0500 ####[facility] [address] [place], [address] RDW SD 43.8 fl Normal 35.1-43.9 [facility] Comment on above: Performed By: #### L 100.0500 ####[facility] [address] [place], [address] WBC (Bld) [#/Vol] 3.9 10*3/uL Low 4.4-11.0 [facility] Comment on above: Performed By: #### L 100.0500 ####[facility] [address] [place], [address] Carbon dioxide, total [Moles /volume] in Central venous bloodOrdered By: Yasmin Crouch on 07-03-2024 CO2 [Moles/Vol] 22.5 mmol/L 21.0-32.0 [facility] Chloride assayOrdered By: Monte on 07-03-2024 Chloride [Moles/Vol] 108 mmol/L 98-108 [facility] Discharge Instructionon 04-0 Discharge Instruction [facility] Medical Records Department [address] [place] [address] Instructions for Home/Discharge Instructions 07/03/24822 MR#: [id number] Acct: [id number] Name: NICOLASA CASTILLO Rep #: [id number] : 1975 49 From: Yasmin Crouch MD PCP: Dr. Florian Johns MD Status:REG [facility] Discharge Instructions Diet Discharge Diet: No restrictions [...] if you need an appointment please call [phone] Test Results: Test results from this visit will be discussed in further detail at your follow-up appointment, if applicable. Discharge Plan Admission Attending Provider: Laura Crouch Primary Care Provider: Florian Johns Instructions Print Language: Marshallese Discharge Orders/Prescriptions Prescriptions: No Action levothyroxine 88 [...] Order can be placed): Home, Self Care 07/03/24823 Yasmin Crouch MD CC: Dr. Florian Johns [...] 11.6-14.6 [facility] Erythrocyte distribution wid th standard deviationOrdered By: Yasmin Jackson on 07-03-2024 Erythrocyte distribution width (RBC) [Ratio] 43.8 fl 35.1-43.9 [facility] Estimation [...] above: mL/min/1.73m2 CKD-EP I Creatinine Equation (2020) Glomerular filtration rate ( GFR) estimation/1.73 sq m using serum, plasma, or whole bOrdered By: Yasmin Crouch on 07-03-2024 GFR/1.73 sq M.predicted among non-blacks MDRD (S/P/Bld) [Vol rate/Area] 108 mL/min/{1.73_m2} >60 [facility] [...] (RBC) [Entitic vol] 88.8 fL 81-99 [facility] MR/POSTOP.ANEon 07-03-2024 MR/POSTOP.ANE [facility] Medical Records Department [address] [place] [address] Anesthesia Postop Eval I 07/03/24 0931 MR#: [id number] Acct: [id number] Name: NICOLASA CASTILLO Rep #: [id number] : 1975 49 From: Tamela Desai CRNA PCP: Dr. Florian Johns MD Status:REG [facility] Y Race: C Location: [place] [address] Anesthesia: Postop Eval I Current Vital Signs [...] Anesthesia document: Postop Eval 1 completed: Yes 07/03/24932 Date Tamela Desai CRNA Cosigner Signature: Date CC: Signed Normal [facility] MR/NHSLDHAK2nb 07-03-2024 MR/POSTOPAN2 [facility] Medical Records Department [address] [place] [address] Anesthesia Postop Eval II 07/03/24 1050 MR#: [id number] Acct: [id number] Name: NICOLASA CASTILLO Rep #: [id number] : 1975 49 From: Rose Geiger PCP: Dr. Florian Johns MD Status:REG [facility] Y Race: C Location: [place] [address]- Anesthesia Postop Eval I Sum Postop Eval Completion status Anesthesia document: Postop Eval 1 completed: Yes Anesthesia Postop Eval I Summary Anesthesia Postop Eval I Summary: Anesthesia Postop Eval I: Assessment Summary Airway patent Yes 07/03/24 09:33 GLOBAL LOGISTICS MANAGER.LMIL Spontaneous unlabored Yes 07/03/24 09:33 GLOBAL LOGISTICS MANAGER.LMIL respirations Mental status Awake 07/03/24 09:33 GLOBAL LOGISTICS MANAGER.LMIL nausea No 07/03/24 09:33 GLOBAL LOGISTICS MANAGER.LMIL Vomiting No 07/03/24 09:33 GLOBAL LOGISTICS MANAGER.LMIL Anesthesia Postop Eval I: Fluid Summary Crystalloid volume administer 1,000 07/03/24 09:33 GLOBAL LOGISTICS MANAGER.LMIL (ml) Colloids volume administered ( ml) Blood Product volume administered (ml) Total IV fluid infused 1,000 07/03/24 09:33 GLOBAL LOGISTICS MANAGER.LMIL Anesthesia Postop Eval I: Summary Notes Anesthesia Complication No 07/03/24 09:33 GLOBAL LOGISTICS MANAGER.LMIL Anesthesia Complication Comment: Post-operative progress note Anesthesia: Postop Eval II Evaluation Mental status: Awake Pain Level: 2 nausea: No Vomiting: No 07/03/24 1050 Date Rose De Santiago Signature: Date CC: Signed Normal [facility] Mean corpuscular hemoglobin (MCH) determinationOrdered By: Yasmin Jackson on 07-03-2024 MCH (RBC) [Entitic mass] 29.3 pg 27.0-32.0 [facility] Mean corpuscular hemoglobin concentration (MCHC) determinationOrdered By: Yasmin Crouch on 07-03-2024 MCHC (RBC) [Mass/Vol] 32.9 g/dL 32-36 [facility] Mean platelet volume determi nationOrdered By: Yasmin Crouch on 07-03-2024 Platelet mean volume (Bld) [Entitic vol] 10.1 fL 6.2-12.0 [facility] Operative Reporton 5 Operative Report [facility] Medical Records Department [address] [place] [address] Operative Report 07/03/24 0913 MR#: [id number] Acct: [id number] Name: NICOLASA CASTILLO Rep #: [id number] : 1975 49 From: Yasmin Crouch MD PCP: Dr. Florian Johns MD Status:[facility] Location: [place] [address] Operative Report (Standard) Operative Information Date of Procedure: 07/03/24 Pre-Operative Diagnosis: desires sterilization, dysmenorrhea, heavy menses Post-Operative Diagnosis: same, Omental adhesions Surgery/Procedure Performed: IUD removal, IUD- liletta insertion, laparoscopic bilateral salpingectomy, Lysis of adhesions gifted program teacher: No Type of Anesthesia: General and Local [...] anesthesia. She was then placed in the [facility] stirrups and she was prepped and draped in [...] prophylaxis not ordered: Treatment Not Indicated 07/03/24 0330 Cosigner Signature (if applicable): CC: Dr Yasmin Crouch MD; Dr. Florian Johns MD Signed Normal [facility] Platelet countOrdered By: Monte on 07-03-2024 Platelets (Bld) [#/Vol] 246 10*3/uL 150-450 [facility] Potassium (Unsp spec) [Mass/ Vol]Ordered By: Yasmin Crouch on 07-03-2024 Potassium [Moles/Vol] 3.9 mmol/L 3.3-5.1 [facility] Potassium measurement (mass/ volume)Ordered By: Yasmin Crouch on 07-03-2024 Potassium (Unsp spec) [Mass/Vol] 3.9 mmol/L 3.3-5.1 [facility] ,Urineon 07-03-2024 Beta HCG ( test) Ql (U) Negative Normal [facility] Comment on above: Result Comment: Very dilute urine specimens, as indicated by a low specific gravity, may not contain financial services sales representative levels of hCG. If is still suspected, a first morning urine specimen should be collected 48 hours later and tested. Performed By: #### L 501.9520, L500.2500, L400.7600 #### [facility] [address] [place], [address] RBC Auto (Bld) [#/Vol]Ordere d By: Yasmin Crouch on 07-03-2024 RBC (Bld) [#/Vol] 3.76 10*6/uL Low 4.2-5.4 [facility] Serum creatinine measurement (mass/volume)Ordered By: Yasmin Crouch on 07-03-2024 Creatinine [Mass/Vol] 0.66 mg/dL Low 0.70-1.20 [facility] Serum glucose measurement (m ass/volume)Ordered By: Yasmin Crouch on 07-03-2024 Glucose [Mass/Vol] 94 mg/dL 70-99 [facility] Serum or plasma calcium aby urement (mass/volume)Ordered By: Yasmin Jackson on 07-03-2024 Calcium [Mass/Vol] 9.2 mg/dL 7.6-11.0 [facility] Serum or plasma urea nitroge n measurement (mass/volume)Ordered By: Yasmin Crouch on 07-03-2024 Urea nitrogen [Mass/Vol] 21 mg/dL High 4-19 [facility] Sodium levelOrdered By: Saurav Crouch on 07-03-2024 Sodium [Moles/Vol] 142 mmol/L 133-145 [facility] Surgery Specimen Level IIon 07-03-2024 Surgery Specimen Level II ---- Patient Age/Sex Location Account Attending Physician ---- NICOLASA CASTILLO 49/F [facility] [id number] Dr Yasmin Crouch, ---- Specimen: [id number] Received: 07/03/24 Status: [facility] Reed Num: [id number] Spec Type: FALL TUBES Subm Dr: Dr Yasmin Samuelntosh, MD HEADER OPERATION: Laparoscopic, salpingectomy, lysis of adhesions [...] with a smooth and glistening inner lining. Ethnic Origins Teacher sections are submitted as follows:A1. First fallopian tube and fimbriated end with cystic structureA2. Second fallopian tube with fimbriated end [facility] 07-03-2024 CPT:48449 ---- Patient Age/Sex Location Account Attending Physician ---- NICOLASA CASTILLO 49/F [facility] [id number] Dr Yasmin Barrett-Neto, ---- Signed (signature on file) Dr. Juany [place] MD 07/08/241706 ---- Normal [facility] Comment on above: Performed By: #### P SUII #### [facility] [address] [place], [place], [id number] TSH DL <= 0.005 mIU/L QnOrde red By: Jan Daniel on 07-03-2024 Thyroid Stimulating Hormone (TSH) 2.140 uIU/mL 0.300-4.200 [facility] TSH Qn 2.140 uIU/mL 0.300-4.200 [facility] Thyroid Stim Hormone (TSH)on 07-03-2024 TSH 2.140 uIU/mL Normal 0.300-4.200 [facility] Comment on above: Performed By: #### L 291.5155, L596.0900, Y082.6355 #### [facility] [address] [place], [address] Urine testOrdered By: Jan Daniel on 07-03-2024 HCG ( test) Ql (U) Negative [facility] Comment on above: Very dilute urine sp ecimens, as indicated by a low specificgravity, may not contain financial services sales representative levels of hCG. If is still suspected, a first morning urinespecimen should be collected 48 hours later and tested. White blood cell (WBC) count Ordered By: Yasmin Crouch on 07-03-2024 WBC (Bld) [#/Vol] 3.9 10*3/uL Low 4.4-11.0 [facility] H AND P Exam - OB/GYNon H&P Exam - PACKAGE CLERK [facility] Medical Records Department [address] [place] [address] H P Exam - PACKAGE CLERK 07/02/24 1331 MR#: [id number] Acct: [id number] Name: NICOLASA CASTILLO Rep #: [id number] : 1975 49 From: Yasmin Crouch MD PCP: Dr. Florian Johns MD Status:[facility] Location: [place] [address] History and Physical Date of Admission: 07/03/24 [...] Negative ??? PAST SURGICAL HISTORY OF 05/2017 [facility] ??? REDUCTION OF LARGE BREAST Bilateral 2020 ??? VAGINOSCOPY 01/14/2013 GILES 3 ??? VAGINOSCOPY [...] MD; Dr. Florian Johns MD * Signed Normal [facility] MR/PATBECKYon 06-10-2024 MR/PAT.ANE [facility] Medical Records Department [address] [place] [address] PAT - Anesthesia 06/10/24 1114 MR#: [id number] Acct: [id number] Name: NICOLASA CASTILLO Rep #: [id number] : 1975 49 From: Jan Daniel MD PCP: Dr. 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: Anesthesia History - 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 Hx Hospitalization No 06/10/24 08:11 Any Problems [...] take am of surgery PONV PONV - 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: PONV - 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 Female Yes 06/10/24 08:11 HX of Motion [...] 04/18/23 13:55 Respiratory Assessment Respiratory Assessment - 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: Respiratory Tract Infection Hx - 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 Hx Respiratory Tract Infection No 06/10/24 08:11 STOP Sleep Apnea STOP Sleep Apnea - 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: STOP Sleep Apnea - 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 Hx Hypertension Yes: NO MEDS SINCE 201706/10/24 [...] Tobacco Use History Tobacco Use History - 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: Tobacco Use History - 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 Tobacco Use Smoking Status Never smoker 06/10/24 08:11 Hx Tobacco Use No 06/10/24 08:11 Years Smoking Packs Smoked per Day Smoking Cessation Date was within the last 15 years Hx Smoking Cessation Date Hx Smoking Cessation Counseling Hematologic Medial History Hematologic Hx - 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: Hematologic Medical Hx - manager documentation Hx of Blood Transfusion No 06/10/24 08:11 [...] confused, unrespo /Reproduction History /Reproductive History - 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: /Reproductive Hx- 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 Hx Now No 06/10/24 08:11 Gestational Age (in weeks): EDC: Hx Hx Para Hx Section SAB No 06/10/24 08:11 [facility] Medical History (Updated 06/10/24 @ 08:17 by [...] 300 mg caps (more content not included)... [facility] NICOLASA CASTILLO ([id number]) 1975 F Date Time Provider Department 06/09/24 4:20 PM YASMIN KEE OBGYWM During your visit [...] 02/13/2013 Negative PAST SURGICAL HISTORY OF 05/2017 [facility] REDUCTION OF LARGE BREAST Bilateral 2020 VAGINOSCOPY [...] salpingectomy and IUD removal and reinsertion with Rose Pt has been counseled on risks/benefits and [...] Status:Closed by YASMIN JACKSON on 06/09/24 Normal [facility] HISTORY PHYSICALon HISTORY PHYSICAL HNO ID: [id number] Author: YASMIN KEE MD Service: ? Author [...] Negative PAST SURGICAL HISTORY OF 05/2017 [facility] REDUCTION OF LARGE BREAST Bilateral 2020 VAGINOSCOPY [...] history, medications and allergies Yasmin Jackson MD [facility] CNOVon 04-21-2024 CNOV Office Visit (OBGYWM ) NICOLASA CASTILLO ([id number]) 1975 F Date Time Provider Department 04/21/24 3:20 PM YASMIN KEE OBGYWM During your visit today, we recorded the following information about you: Blood pressure Weight 124/80 88 kg Yasmin Kee MD 04/21/2024 4:56 PM Signed Nicolasa Castillo is a 49 year old female who presents for sterizlation consultation. Pt currently uses mirena and would like to consider Salpingectomy. Pt reports prior to mirena and gastric bypass menses were very irregular. Pt unsure if she wants to continue use of mirena. OB History T0 L0 SAB0 IAB0 Ectopic0 Multiple0 Live Births0 Electrical Installer History LMP: 07/27/2014, IUD Age at Menarche: Age at First : Age at Menopause: Electrical Installer History Comments: Sexual Activity: Yes; Male Contraception: I.U.D. PAST MEDICAL HISTORY Diagnosis Date Diabetes (HCC) Dysmetabolic syndrome Gout Hypercholesteremia Hypertension Hypothyroidism PAST SURGICAL HISTORY Procedure Laterality Date ASPIRATIONAND/INJECTIO N GANGLION CYST ANY LOCATJ Right 04/2023 removal cyst MIRENA 03/23/2013 OFFICE LEEP 02/13/2013 Negative PAST SURGICAL HISTORY OF 05/2017 gastric bi [facility]- [facility] REDUCTION OF LARGE BREAST Bilateral 2020 [...] which included preparing to see the patient, [id number] patient care, completing clinical documentation, obtaining and/or reviewing separately obtained history, performing a medically appropriate examination, and counseling and educating the patient/family/[facility]. Yasmin Crouch MD Allergies As of [...] Encounter Status:Closed by YASMIN JACKSON on 04/21/24 Normal [facility] Laboratory - Chemistry and C hemistry - challengeOrdered By: Jan Daniel on 04-18-2023 HCG ( test) Ql (U) Negative [facility] Comment on above: Very dilute urine sp ecimens, as indicated by a low specificgravity, may not contain financial services sales representative levels of hCG. If is still suspected, a first morning urinespecimen should be collected 48 hours later and tested. Basophil percentageOrdered B y: Florian Johns on 02-22-2023 Chloride [Moles/Vol] 106 mmol/L 98-107 [facility] Cholesterol [Mass/Vol] 210 mg/dL <200 [facility] Comment on above: <200 mg/dL Desirable 200-240 mg/dL Borderline >240 mg/dL High Risk Glucose [Mass/Vol] 92 mg/dL 74-106 [facility] Potassium [Moles/Vol] 3.6 mmol/L 3.5-5.1 [facility] Sodium [Moles/Vol] 139 mmol/L 136-145 [facility] Triglyceride [Mass/Vol] 75 mg/dL <199 [facility] Comment on above: The drugs N-Acetylcy steine [...] [place] Free T4 [Mass/Vol] 0.92 ng/dL 0.76-1.46 [facility] Urea nitrogen/Creatinine [Mass ratio] 19.5 mg/mg [...] on 02-22-2023 Calcium [Mass/Vol] 8.8 mg/dL 8.5-10.1 [facility] Serum or plasma cholesterol in HDL [...] on 02-22-2023 Creatinine [Mass/Vol] 0.77 mg/dL 0.55-1.02 [facility] Comment on above: The validity of the [...] Basophils/100 WBC (Bld) 1.2 % 0-1 [facility] Chloride [Moles/Vol] 106 mmol/L 98-107 [facility] Eosinophils/100 WBC (Bld) 1.8 % 0-5 [facility] Glucose [Mass/Vol] 89 mg/dL 74-106 [facility] Neutrophils (Bld) [#/Vol] 1.8 10*3/uL 2.0-7.7 [facility] Neutrophils/100 WBC (Bld) 53.1 % 47-70 [facility] Potassium [Moles/Vol] 3.8 mmol/L 3.5-5.1 [facility] Sodium [Moles/Vol] 141 mmol/L 136-145 [facility] WBC (Bld) [#/Vol] 3.3 10*3/uL 4.4-11.0 [facility] Blood erythrocytes count (nu mber/volume)Ordered By: Dr. Johns on 08-06-2022 RBC (Bld) [#/Vol] 4.03 10*6/uL 4.2-5.4 [facility] Blood hemoglobin measurement (mass/volume)Ordered By: Dr. Johns on 08-06-2022 Hemoglobin (Bld) [Mass/Vol] 12.5 g/dL 12.0-15.0 [facility] Blood lymphocytes/100 leukoc ytesOrdered By: Dr. Johns on 08-06-2022 Lymphocytes/100 WBC (Bld) 31.5 % 19-41 [facility] Blood monocytes/100 leukocyt esOrdered By: Dr. Johns on 08-06-2022 Monocytes/100 WBC (Bld) 12.4 % 0-10 [facility] Blood platelet mean volumeOr dered By: Dr. Johns on 08-06-2022 Platelet mean volume (Bld) [Entitic vol] 10.7 fL 6.2-12.0 [facility] Determination of erythrocyte mean corpuscular volume (MCV)Ordered By: Dr. Johns on 08-06-2022 MCV (RBC) [Entitic vol] 96.8 fL 81-99 [facility] Hematocrit Auto (Bld) [Volum e fraction]Ordered By: Dr. Johns on 08-06-2022 Hematocrit (Bld) [Volume fraction] 39.0 % 37-47 [facility] Laboratory - Chemistry and C hemistry - challengeOrdered By: Dr. Johns on 08-06-2022 CO2 [Moles/Vol] 29.0 mmol/L 21.0-32.0 [facility] Free T4 [Mass/Vol] 0.99 ng/dL 0.76-1.46 [facility] [facility] Urea nitrogen/Creatinine [Mass ratio] 23.1 mg/mg [...] 08-06-2022 MCHC (RBC) [Mass/Vol] 32.1 g/dL 32-36 [facility] No Panel InformationOrdered By: Dr. Johns on [...] on 08-06-2022 Calcium [Mass/Vol] 9.0 mg/dL 8.5-10.1 [facility] Serum or plasma creatinine m easurement (mass/volume)Ordered By: Dr. Johns on 08-06-2022 Creatinine [Mass/Vol] 0.60 mg/dL 0.55-1.02 [facility] Comment on above: The validity of the [...] 08-29-2021 Free T4 [Mass/Vol] 1.12 ng/dL 0.76-1.46 [facility] Work Phone: No Panel Informationon 08-29 [...] Panel Informationon 08-04 Respiratory Panel (PCR) [facility] Work Phone: Basophil percentageon 2021 Testosterone [Mass/Vol] 4 ng/dL [facility] Work Phone: Free testosterone percentage on 05-23-2021 Testosterone Free/Testosterone.total [Mass fraction] 1.71 % [facility] Work Phone: Comment on above: Performed at: [facility] Joseline weller [id number] [place], [place] [id number] Director: Shyam Kaminski PhD, Phone: [phone] at: [address] [id number] Director: Patricia Washington MD, Phone: [phone] Serum or plasma testosterone free measurement (mass/volume)on [...] Glucose mass conc 109 mg/dL High 65-99 [facility] alth System Comment on above: Performed By: #### P LT ####Main LaboratoryLaYones Ipoh[address] [place] [address] Glucose mass conc 98 mg/dL Normal 65-99 [facility] [employer] System Comment on above: Performed By: #### P LT ####Main LaboratoryLake Jlkl[address] [place] [address] Glucose mass conc 99 mg/dL Normal 65-99 [facility] System Comment on above: Performed By: #### P CGL ####[facility] [address] [place] [address] POCT GLUCOSEon 06-12-2017 Glucose mass conc 95 mg/dL Normal 65-99 [facility] Comment on above: Performed By: #### P CGL ####[facility] [address] [place] [address] Glucose mass conc 81 mg/dL Normal 65-99 [facility] Comment on above: Performed By: #### P CGL ####[facility] [id number] [place] [address] Glucose mass conc 111 mg/dL High 65-99 [facility] Comment on above: Performed By: #### P CGL ####[facility] W[address]ci[address] [place] [address] Glucose mass conc 93 mg/dL Normal 65-99 [facility] Comment on above: Performed By: #### P CGL ####[facility] E[address] [place] [address] Glucose mass conc 81 mg/dL Normal 65-99 [facility] Comment on above: Performed By: #### P CGL ####[facility] [address] [place] [address] UGI W KUBon 06-12-2017 UGI W KUB *FINAL Da te of Service: 06/12/2017 08:32 Adm #: [id number] Dr:KITTY DEE Signoff Dr: KITTY DEEPROCEDURE: UGI W [...] by/Date: NO ADDENDUMAddendum Electronically Signed by/Date: Normal [facility] Consulton 06-11-2017 Consult Normal [facility] Discharge Summaryon 06-12-19 18 Discharge Summary Normal [facility] Operative Reporton 8 Operative Report Normal [facility] PLATELETon 06-11-2017 Platelets Normal 150-450 [facility] Comment on above: Result Comment: 280P erformed at [facility] [address] [place] [address] Performed By: #### P LT ####[facility] LaboratoryLaFormerly [facility] CenterCacv[address] [place] [address] POCT GLUCOSEon 06-11-2017 Glucose mass conc 144 mg/dL High 65-99 [facility] Comment on above: Performed By: #### P CGL ####[place] [address] [place] [address] Glucose mass conc 145 mg/dL High 65-99 [facility] alth System Comment on above: Performed By: #### P CGL ####[facility] [facility] [place] [address] Glucose mass conc 112 mg/dL High 65-99 [facility] System Comment on above: Performed By: #### P CGL ####[place] [address] [place] [address] Vital Signs Date Time Vital Sign Value [...] 170.2 cm Yasmin Jackson MD Work Phone: [facility] 06-09-2024 16:11-0400 Body mass index (BMI) [Ratio] 31.01 kg/m2 Yasmin Jackson MD Work Phone: [facility] 06-09-2024 16:11-0400 Body weight 89.81 kg Yasmin Jackson MD Work Phone: [facility] 06-09-2024 16:11-0400 Diastolic blood pressure 72 mm[Hg] Yasmin Jackson MD Work Phone: [facility] 06-09-2024 16:11-0400 Systolic blood pressure 134 mm[Hg] Yasmin Jackson MD Work Phone: [facility] 04-21-2024 15:19-0500 Body mass index (BMI) [Ratio] 30.09 kg/m2 Yasmin Jackson MD Work Phone: [facility] 04-21-2024 15:19-0500 Body weight 88 kg Yasmin Jackson MD Work Phone: [facility] 04-21-2024 15:19-0500 Diastolic blood pressure 80 mm[Hg] Yasmin Jackson MD Work Phone: [facility] 04-21-2024 15:19-0500 Systolic blood pressure 124 mm[Hg] Yasmin Jackson MD Work Phone: [facility] 04-18-2023 17:10-0500 Body temperature 97.7 [degF] [facility] 04-18-2023 17:10-0500 Diastolic blood pressure 73 mm[Hg] [facility] 04-18-2023 17:10-0500 Heart rate 59 /min [facility] 04-18-2023 17:10-0500 Respiratory rate 16 /min [facility] 04-18-2023 17:10-0500 SaO2% (BldA) [Mass fraction] 100 % [facility] 04-18-2023 17:10-0500 Systolic blood pressure 125 mm[Hg] [facility] 04-18-2023 13:55-0500 Body height 172.72 cm [facility] 04-18-2023 13:55-0500 Body mass index (BMI) [Ratio] 27.3 kg/m2 [facility] 04-18-2023 13:55-0500 Body weight 81.4 kg [facility] 06-18-2022 15:47-0400 Body height 172.7 cm Yasmin Jackson MD Work Phone: [facility] 06-18-2022 15:47-0400 Body weight 82.37 kg Yasmin Jackson MD Work Phone: [facility] 06-18-2022 15:47-0400 Diastolic blood pressure 74 mm[Hg] Yasmin Jackson MD Work Phone: [facility] 06-18-2022 15:47-0400 Systolic blood pressure 120 mm[Hg] Yasmin Jackson MD Work Phone: [facility] Encounters Encounter Date Encounter Type Care Provider Facility Start: 03-29-2025 ambulatory Zak Naylori ty:[facility] Start: 01-18-2025 ambulatory Matthew Moyer Facilit y:[facility] Start: 01-04-2025 End: 01-04-2025 ambulatory YASMIN JACKSON Facility:[facility] Start: 01-04-2025 Encounter for gynecological examination (general) (routine) without abnormal findings YASMIN JACKSON [facility] Start: 09-22-2024 End: 09-22-[address] Florian Johns MD Work Phone: -Outpatient Breast Imaging Start: 09-22-2024 End: 09-22-[address] Yasmin Crouch MD -Outpatient Breast Imaging Work Phone: Start: 09-22-2024 End: 09-22-2024 ambulatory Yasmin Crouch Facility:[facility] Start: 07-27-2024 End: 07-27-[address] Matthew Moyer MD -Radiology [facility] Work Phone: Start: 07-27-2024 End: 07-27-2024 ambulatory Matthew Moyer Facility:[facility] Start: 07-09-2024 End: 07-09-2024 Telephone encounter Yasmin Jackson MD Work Phone: OB/Gynecology Start: 07-03-2024 End: 07-03-2024 Admission to same day surgery center Dr Yasmin Crouch MD -[facility] Start: 07-03-2024 End: 07-03-[address] Florian Johns MD Work Phone: [facility] Work Phone: Start: 06-09-2024 End: 06-09-2024 ambulatory [facility] Facility:[facility] Start: 06-09-2024 End: 06-09-2024 Patient encounter procedure Yasmin Jackson MD Work Phone: OB/Gynecology Comment on above: Sterilization consul t (Primary Dx); Abnormal uterine bleeding (AUB); Dysmenorrhea; Pre-op exam Start: 06-09-2024 End: 06-09-2024 Preprocedural examination done Yasmin Jackson MD Work Phone: [facility] Start: 06-03-2024 End: 06-03-2024 Admission to same day surgery eight mile Yasmin Jackson MD Work Phone: OB/Gynecology Comment on above: surgery confirmation Start: 06-03-2024 End: 06-03-2024 E-mail encounter from caregiver Yasmin Jackson MD Work Phone: OB/Gynecology Start: 04-21-2024 End: 04-21-2024 [facility] Facility:[facility] Start: 04-21-2024 End: 04-21-2024 Patient encounter procedure Yasmin Jackson MD Work Phone: OB/Gynecology Comment on above: Sterilization consul t (Primary Dx) Start: 04-08-2024 End: 04-09-2024 ambulatory Yasmin Jackson MD Work Phone: OB/Gynecology Comment on above: Question on Tubal Li gation Start: 09-26-2023 Telephone encounter Yasmin Jackson MD Work Phone: OB/Gynecology Comment on above: Results Start: 04-18-2023 End: 04-18-2023 Admission to same day surgery [facility] Start: 04-18-2023 End: 04-18-2023 ambulatory [facility] Work Phone: Start: 02-22-2023 End: 02-22-2023 ambulatory [facility] Work Phone: Start: 02-22-2023 End: 02-22-2023 Patient encounter procedure [facility] Work Phone: Start: 08-06-2022 End: 08-06-[address] Florian Jhons Work Phone: [facility] Work Phone: Start: 08-06-2022 End: 08-06-[address] Florian Johns Work Phone[facility] Start: 06-27-2022 End: 06-27-[address] Florian [...] Start: 02-07-2022 End: 02-07-2022 Patient encounter procedure [facility] Start: 08-29-2021 End: 08-29-2021 Patient encounter procedure [facility] Start: 08-04-2021 End: 08-04-2021 Patient encounter procedure [facility], Specimen Start: 05-23-2021 End: 05-23-2021 Patient encounter procedure [facility] Start: 05-17-2021 End: 05-17-2021 [facility] Start: 06-11-2017 End: 06-13-2017 Evaluation and management of inpatient SUNDAR GUARDADO Facility:UNKNOWN Start: 03-18-2017 Patient encounter status [facility] Start: 03-18-[address] Florian giraldo MD Work Phone: [facility] Start: 10-17-2016 Ambulatory SUNDAR THAPAKHOI Facility: UNKNOWN Procedures Date Procedure Procedure Detail Performing Clinician Start: 09-22-2024 Screening mammography Regine Johns MD Work Phone: Start: 07-27-2024 X-ray of cervical spine Dr. Florian Johns MD Work Phone: Start: 07-03-[address] Florian Johns MD Work Phone: Start: 07-03-[address] Florian Johns MD Work Phone: Start: 04-18-2023 Excision of cyst Start: 06-27-2022 Screening mammography Regine Johns Work Phone: Start: 08-04-2021 Respiratory Panel (PCR) Plan of Treatment Date Care Activity Detail Author Start: 05-23-2026 HPV TESTING HPV TESTING [facility] Start: 05-23-2026 PAP TESTING PAP TESTING [facility] Start: 05-23-2026 Screening for malign ant neoplasm of cervix Cervical Cancer Screening [facility] Start: 10-07-2024 End: 10-07-2024 Patient encounter procedure 10/07/2024 3:20 PM EDT Office Visit OB/Gynecology [address] [place] [address] Yasmin Kee MD [address] [place] [address] Annual, x2 rescheduled OB/Gynecology Comment on above: Annual, x2 reschedul ed Start: 09-18-2024 End: 09-18-2024 Patient encounter procedure 09/18/2024 4:00 PM EDT Office Visit OB/Gynecology [address] [place] [address] Yasmin Kee MD [address] [place] [address] Annual OB/Gynecology Comment on above: Annual Start: 09-16-2024 BP Controlled (<130/80) BP Controlle d (<130/80) [facility] Start: 07-20-2024 End: 07-20-2024 Patient encounter procedure 07/20/2024 4:20 PM EDT Office Visit OB/Gynecology [address] [place] [address] Yasmin Kee MD [address] [place] [address] post op /4 OB/Gynecology Comment on above: post op 4/4 Start: 07-03-2024 Anesthesia intraperitoneal lower abd w/laps nos ANESTH SURG LOWER ABDOMEN [facility] Start: 07-03-2024 Insertion intrauteri ne device iud INSERT INTRAUTERINE DEVICE [facility] Start: 07-03-2024 Laparoscopy w/rmvl adnexal structures LAPAROSCOPY REMOVE ADNEXA [facility] Start: 07-03-2024 Removal intrauterine device iud REMOVE INTRAUTERINE DEVICE [facility] Start: 07-03-2024 Patient discharge [facility] Start: 07-03-2024 Procedure discontinued [facility] Start: 07-03-2024 Ambulation without limitation [facility] Start: 07-03-2024 Medical regimen orde rs management [facility] Start: 07-03-2024 Medication education [facility] Start: 07-03-2024 Taking patient vital signs [facility] Start: 07-03-2024 Vital signs measurements [facility] Start: 07-03-2024 [facility] Start: 06-09-2024 End: 06-09-2024 Patient encounter procedure 06/09/2024 4:20 PM EDT Office Visit OB/Gynecology [address] [place] [address] Yasmin Kee MD [address] [place] [address] surgery 07/03 OB/Gynecology Comment on above: surgery 07/03 Start: 04-21-2024 End: 04-21-2024 Patient encounter procedure 04/21/2024 3:20 PM EST Office Visit OB/Gynecology [address] [place] [address] Yasmin Kee MD [address] [place] [address] Consult for bilateral salpingectomy OB/Gynecology Comment on above: Consult for bilatera l salpingectomy Start: 12-01-2023 Covid-19 Vaccine ( season) Covid-19 Vaccine ( season) [facility] Start: 12-01-2023 Influenza vaccination Influenza Vacc ine (#1) [facility] Start: 06-28-2023 Screening for malign ant neoplasm of breast Mammogram Screening [facility] Start: 06-19-2023 BP CONTROLLED (<130/80) BP CONTROLLE D (<130/80) [facility] Start: 04-18-2023 Patient discharge [facility] Start: 04-18-2023 [facility] Start: 04-18-2023 Wound care [facility] Start: 04-18-2023 [facility] Start: 04-18-2023 Medication education [facility] Start: 04-01-2023 Behavioral Health Screening Behavioral Health Screening [facility] Start: 11-30-2022 Covid-19 Vaccine ( season) Covid-19 Vaccine ( season) [facility] Start: 04-01-2022 DEPRESSION ASSESSMENT DEPRESSION ASS ESSMENT [facility] Start: 11-30-2021 Influenza vaccination INFLUENZA (#1) [facility] Start: 2021 COLOGUARD (FIT-DNA) COLOGUARD (FIT-D NA) [facility] Start: 2021 Colonoscopy COLONOSCOPY [facility] Start: 2021 COLORECTAL CANCER SCREENING COLORECTAL CANCER SCREENING [facility] Start: [address] COLONOGRAPHY [facility] Start: 2021 FECAL OCCULT BLOOD FECAL OCCULT BLOO D [facility] Start: 2021 Screening for malign ant neoplasm of colon [facility] Start: 2021 SIGMOIDOSCOPY SIGMOIDOSCOPY [facility] Start: 2016 Mammography MAMMOGRAM [facility] Start: 1995 Hepatitis B Vaccine (1 of 3 - 19+ 3-dose series) Hepatitis B Vaccine (1 of 3 - 19+ 3-dose series) [facility] Start: 1995 Pneumococcal vaccination Pneum ococcal Vaccine (1 of 2 - PCV) [facility] Start: 1995 Urine microalbumin profile [facility] Start: 1994 ANNUAL PCP TEAM TESTER ARMATURE OR FIELDS ALMA ROSA DISEASE VISIT ANNUAL PCP TEAM CHRONIC DISEASE VISIT [facility] Start: 1994 Anxiety Screening Anxiety Screening [facility] Start: 1994 BP Controlled (<130/80) BP Controlle d (<130/80) [facility] Start: 1994 Depression Screening Depression Scre ening [facility] Start: 1994 Hepatitis B surface antibody level LDL CHOLESTEROL [facility] Start: 1994 HEPATITIS C SCREENING HEPATITIS C [facility] Start: 1994 Hepatitis C screening Hepatitis C [facility] Start: 1994 HIV SCREENING HIV SCREENING [facility] Start: 1994 HIV screening HIV Screening [facility] Start: 1986 3 comp foot exam completed DIABETIC FOOT EXAM [facility] Start: 1986 Diabetic foot examination Diabetic F oot Exam [facility] Start: 1986 Glaucoma screening Dilated Retinal E xam [facility] Start: 1986 Hepatitis B screening URINE ALBUMIN:CREATININE RATIO [facility] Start: 1986 Hepatitis C antibody , confirmatory test DILATED RETINAL EXAM [facility] Start: 1982 PNEUMOCOCCAL (1 - PCV) PNEUMOCOCCAL (1 - PCV) [facility] Start: 1982 Pneumococcal vaccination Pneum ococcal Vaccine (1 of 2 - PCV) [facility] Start: 1981 Hemoglobin A1c measurement HbA1C [facility] Start: 1981 Hemoglobin A1c/Hemoglobin.total in Blood HBA1C [facility] Start: 1976 COVID-19 VACCINE (#1) COVID-19 VACCI NE (#1) [facility] Start: 1976 HEPATITIS B (1 of 3 - 3-dose series) HEPATITIS B (1 of 3 - 3-dose series) [facility] End: 07-18-2023 RORY SCREENING RORY SCREENING Radiology Routine Encounter for screening mammogram for breast cancer 1 Occurrences starting 06/18/2022 until 07/18/2023 [facility] Work Phone: Comment on above: 1 Occurrences starti ng 06/18/2022 until 07/18/2023 Patient referral [facility] Immunization Date Immunization Notes Care Provider Prosper carlin 02-02-2020 influenza virus vacc ine, unspecified formulation Yasmin Jackson MD Work Phone: [facility] Payers Date Payer Category Payer Self-pay [id number] 2022 Private Health Insurance [id number] 2022 Unknown [id number] 2013 Unknown [id number] Unknown [id number] Unknown [id number] Unknown [id number] [id number] Unknown [id number] Unknown [id number] Social History Date Type Detail Facility Start: 04-30-2020 End: 04-08-2023 Tobacco smoking status NVIS Unknown if ever smoked [facility] Start: 1975 Sex Assigned At Female [facility] Start: 12-24-2012 End: 06-10-2024 Tobacco smoking status NVIS Never smoked tobacco [facility] Start: 12-24-2012 Tobacco use and exposure Smokeless tobacco non-user [facility] Start: 06-18-2022 End: 07-03-2024 Alcohol intake Current drinker of alcohol (finding) [facility] Start: 12-24-2012 Alcohol Comment [facility] Start: 09-17-2023 End: 06-09-2024 History of Social function [facility] Start: 09-17-2023 End: 06-09-2024 Tobacco use panel [facility] National Score (1-100), lower number is lower risk 80 [facility] Start: 04-04-2021 Gender identity Identifies as female gender (finding) [facility] Start: 04-04-2021 Sexual orientation Heterosexual (fin ding) [facility] Start: 07-03-2024 [facility] 08/06/2014 10:59 AM Brandy Rdz, YOLIE No [facility] 08-06-2014 Are you blind, or do you have serious difficulty seeing, even when wearing glasses No 08/06/2014 10:59 AM Brandy Rdz, YOLIE No [facility] 08-06-2014 Do you have serious difficulty walking or climbing stairs No 08/06/2014 10:59 AM Brandy Rdz, YOLIE [facility] 08-06-2014 Do you have difficul ty dressing or bathing No 08/06/2014 10:59 AM Brandy Rdz, YOLIE No [facility] 08-06-2014 Because of a physica l, mental, or emotional condition, do you have difficulty doing errands alone such as visiting a physician's office or shopping No 08/06/2014 10:59 AM Brandy Rdz, YOLIE No [facility] Mental Status Date Assessment Result Facility 07-03-2024 Cognitive function Voice/Name [facility] Work Phone: 07-03-2024 Cognitive function Patient Omar damico Person;Place;Time [facility] Work Phone: 04-18-2023 Cognitive function Voice/Name [facility] Work Phone: 08-06-2014 Because of a physica l, mental, or emotional condition, do you have serious difficulty concentrating, remembering, or making decisions No 08/06/2014 10:59 AM EDT Brandy Lackey, YOLIE No [facility] Clinical Notes 04-16-2022 to 01-04-2025 Telephone Encounter - Jenn Reynolds RN - 07/09/2024 3:00 PM EDTTelephone Encounter - Jenn Reynolds RN - 07/09/2024 3:00 PM EDT Note Date & Type Note Facility 01-04-2025 Note HNO ID: [id number] Author: YASMIN KEE MD Service: ? 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 Nicolasa is a 49 year old who presents for an annual gynecologic exam without complaints. 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 PAST MEDICAL HISTORY Diagnosis Date Diabetes (HCC) Dysmetabolic syndrome Gout Hypercholesteremia Hypertension Hypothyroidism PAST SURGICAL HISTORY Procedure Laterality Date ASPIRATIONAND/INJECTION GANGLION CYST ANY LOCATJ Right 04/2023 removal cyst INSERTION OF IUD 07/03/2024 Rose PEREIRA 03/23/2013 Removed 07/03/24 by DM at [facility] OFFICE LEEP 02/13/2013 Negative PAST SURGICAL HISTORY OF 05/2017 gastric bi [facility] REDUCTION OF LARGE BREAST Bilateral 2020 SALPINGECTOMY Bilateral 07/03/2024 Laparoscopic/Lysis of adhesions/IUD removal/IUD-Liletta insertion VAGINOSCOPY 01/14/2013 GILES 3 VAGINOSCOPY 01/06/2014 FAMILY [...] skin retraction. Allergies and current medication updated:Yes SENSITIVE EXAM: The sensitive examination was discussed with the Patient or Patient's Authorized Ethnic Origins Teacher. As applicable, any other physician, advance practice provider, medical student, or other health professional student that will be observing or involved in the sensitive examination for educational or training purposes was discussed with the Patient or Authorized Ethnic Origins Teacher. The Patient or Authorized Ethnic Origins Teacher has agreed to proceed with the sensitive examination. (Sensitive examination includes inspection and/or palpation of the breasts, pelvis, prostate and anorectal regions). EXAM: BP 122/74 Ht 5' 7.717 (1.72m) Wt 192 lb (87.1kg) LMP 07/27/2014 BMI 29.44 kg/(m2). GENERAL: pleasant, female in no apparent distress HEENT: Normocephalic, atraumatic, mucus membranes moist, and no lesions NECK: Supple, full range of motion, no adenopathy, and thyroid normal DERMATOLOGY: Normal, without lesions, non-icteric, and non-hirsute BREAST: soft, non-tender, symmetric, no dominant mass, normal nipple-areolar complex, no lymphadenopathy, and no nipple discharge CHEST: Normal inspiratory effort ABDOMEN: soft, non-tender, and no masses PELVIC: external genitalia normal, normal Bartholin's glands, urethra, [place]'s glands, no vulvar lesions, no cervical lesions, good vaginal support, physiologic discharge present, normal appearing perineal body and perianal region BIMANUAL: uterus normal size, shape and consistency, no adnexal masses, and non-tender RECTOVAGINAL: deferred. NEURO: alert and oriented x3,exam grossly non-focal EXTREMITIES: normal ASSESSMENT/PLAN: 1) Health maintenance: Pap/HPV up to date. Mammogram up to date . Nutrition, exercise and routine health maintenance exams reviewed. Colon cancer screening: colonoscopy ordered 2) Contraception: IUD and tubal sterilization. Contraceptive options reviewed and information provided. 3) STD screening: Declined STI check. 4) Follow up one year or sooner as needed Yasmin Crouch MD [facility] 07-09-2024 Telephone encount er Note Pt notified and voiced understanding. Pt states [...] questions/concerns at this time. Jenn Reynolds RN [facility] 07-09-2024 Miscellaneous Notes Formattin g of this [...] op unless concerns. documented in this encounter [facility] 07-09-2024 Telephone encount er Note Please notify patient that pathology was benign from lap bilateral salpingectomy. She did have small cyst on one of her tubes that was c/w serous cystadenoma that I removed- nothing further. How is she feeling? No need for post op unless concerns. [facility] 07-03-2024 Consult note [facility] 07-03-2024 Consult note Note Date/Time July 03, 2024 9:33am [facility] Medical Records Department [address] [place] [address] Anesthesia Postop Eval I 07/03/2431 MR#: [id number] Acct: [id number] Name: NICOLASA CASTILLO Rep #:[id number] : 1975 49 From: Tamela Desai CRNA PCP: Dr. Florian Johns MD Status:REG S DC Y Race: C Location: [place] [address] Anesthesia: Postop Eval I Current Vital Signs [...] Tamela medeiros CRNA> Date _ Tamela Desai GLOBAL LOGISTICS MANAGER Cosigner Signature: Date CC: ~ Signed [facility] Work Phone: [phone]) 730-643004-04-2025 Discharge summary [facility] Date/Time July 03, 2024 8:24 am [facility] Medical Records Department [address] [place] [address] Instructions for Home/Discharge Instructions 07/03/24822 MR#: [id number] Acct: [id number] Name: NICOLASA CASTILLO Rep #:[id number] : [...] if you need an appointment please call [phone] Test Results: Test results from this visit will be discussed in further detail at your follow- up appointment, if applicable. Discharge Plan Admission Attending Provider: Yasmin Crouch Primary Care Provider: Florian Johns Instructions Print Language: Marshallese Discharge Orders/Prescriptions Prescriptions: No Action levothyroxine 88 [...] [facility] Work Phone: 1(667) 190-914304-04-2025 Consult note Author Kaushal Leonardo [facility] Note Date/Time July 03, 2024 7:53 am [facility] Medical Records Department [address] [place] [address] Pre-Anesthesia Evaluation 07/03/24 0747 MR#: [id number] Acct: [id number] Name: NICOLASA CASTILLO Rep #:[id number] : 1975 49 From: Kaushal Leonardo MD PCP: Dr. 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 Female Yes 06/10/24 08:11 HX of Motion [...] 07/03/24 07:11 Respiratory Assessment Respiratory Assessment - 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: Respiratory Tract Infection Hx - 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 Hx Respiratory Tract Infection No 06/10/24 08:11 STOP Sleep Apnea STOP Sleep Apnea - 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: STOP Sleep Apnea - 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 Hx Hypertension Yes: NO MEDS SINCE 201706/10/24 [...] Tobacco Use History Tobacco Use History - 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: Tobacco Use History - 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 Tobacco Use Smoking Status Never smoker 06/10/24 08:11 Hx Tobacco Use No 06/10/24 08:11 Years Smoking Packs Smoked per Day Smoking Cessation Date was within the last 15 years Hx Smoking Cessation Date Hx Smoking Cessation Counseling Hematologic Medial History Hematologic Hx - 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: Hematologic Medical Hx - manager documentation Hx of Blood Transfusion No 06/10/24 08:11 [...] confused, unrespo /Reproduction History /Reproductive History - 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: /Reproductive Hx- 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 Hx Now No 06/10/24 08:11 Gestational Age [...] mg tablet 15 mg PO DAILY 06/10/24 04/06/23 History Allergy/AdvReac Type Severity Reaction Status Date / Time No Known Allergies Allergy Verified 07/03/24 07:07 Family History Mother CAD (coronary artery disease) [place] age 47 Hypertension Brother Hypertension Diabetes Other [...] no additional complaints, except as documented. 07/03/24 075 <Electronically signed by Kaushal bal MD> Date _ Kaushal Leonardo MD Cosigner Signature: Date CC: ~ Signed [facility] Work Phone: [phone]) [phone] Consult note [facility] Medical Records Department [address] [place] [address] Anesthesia Postop Eval I 07/03/24 0931 MR#: [id number] Acct: [id number] Name: NICOLASA CASTILLO Rep #:[id number] : 1975 49 From: Tamela Desai CRNA PCP: Dr. Florian Johns MD Status:REG S DC Y Race: C Location: [place] [address] Anesthesia: Postop Eval I Current Vital Signs [...] Eval 1 completed: Yes 07/03/24 0933 c GLOBAL LOGISTICS MANAGER> Date _ Tamela Delongoseosiris GLOBAL LOGISTICS MANAGER Cosigner Signature: Date CC: ~ Signed [facility]04-04-2025 History and physical note Author Yasmin Panda [facility] Note Date/Time July 03, 2024 7:22 am [facility] Medical Records Department [address] [place] [address] H&P Exam - PACKAGE CLERK 07/02/24 1331 MR#: [id number] Acct: [id number] Name: NICOLASA CASTILLO Rep #:[id number] : 1975 49 From: Yasmin Jackson MD PCP: Dr. Florian Johns MD Status:REG S DC Location: [place] [address] History and Physical Date of Admission: 07/03/24 [...] Negative ? PAST SURGICAL HISTORY OF 05/2017 [facility] ? REDUCTION OF LARGE BREAST Bilateral 2019 [...] salpingectomy and IUD removal and reinsertion with Malvinetta Pt has been counseled on risks/benefits and [...] [facility] Work Phone: [phone]) [phone] Procedure note [facility] Medical Records Department [address] [place] [address] Operative Report 07/03/24 0913 MR#: [id number] Acct: [id number] Name: NICOLASA CASTILLO Rep #:[id number] : 1975 49 From: Yasmin Jackson MD PCP: Dr. Florian Johns MD Status:REG S DC Location: [place] [address] Operative Report (Standard) Operative Information Date of Procedure: 07/03/24 Pre-Operative Diagnosis: desires sterilization, dysmenorrhea, heavy menses Post-Operative Diagnosis: same, Omental adhesions Surgery/Procedure Performed: IUD removal, IUD- liletta insertion, laparoscopic bilateral salpingectomy, Lysis of adhesions gifted program teacher: No Type of Anesthesia: General and Local [...] anesthesia. She was then placed in the [facility] and she was prepped and draped in [...] [facility] Discharge summary [facility] Medical Records Department [address] [place] [address] Instructions for Home/Discharge Instructions 07/03/24 0823 MR#: [id number] Acct: [id number] Name: NICOLASA CASTILLO Rep #:[id number] : [...] if you need an appointment please call [phone] Test Results: Test results from this visit will be discussed in further detail at your follow- up appointment, if applicable. Discharge Plan Admission Attending Provider: Yasmin Crouch Primary Care Provider: Florian Johns Instructions Print Language: Marshallese Discharge Orders/Prescriptions Prescriptions: No Action levothyroxine 88 [facility] Consult note [facility] Medical Records Department [address] [place] [address] Pre-Anesthesia Evaluation 07/03/24 0747 MR#: [id number] Acct: [id number] Name: NICOLASA CASTILLO Rep #:[id number] : 1975 49 From: Kaushal Leonardo MD PCP: Dr. 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 Female Yes 06/10/24 08:11 HX of Motion [...] 07/03/24 07:11 Respiratory Assessment Respiratory Assessment - 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: Respiratory Tract Infection Hx - 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 Hx Respiratory Tract Infection No 06/10/24 08:11 STOP Sleep Apnea STOP Sleep Apnea - 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: STOP Sleep Apnea - 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 Hx Hypertension Yes: NO MEDS SINCE 201706/10/24 [...] Tobacco Use History Tobacco Use History - 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: Tobacco Use History - 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 Tobacco Use Smoking Status Never smoker 06/10/24 08:11 Hx Tobacco Use No 06/10/24 08:11 Years Smoking Packs Smoked per Day Smoking Cessation Date was within the last 15 years Hx Smoking Cessation Date Hx Smoking Cessation Counseling Hematologic Medial History Hematologic Hx - 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: Hematologic Medical Hx - manager documentation Hx of Blood Transfusion No 06/10/24 08:11 [...] confused, unrespo /Reproduction History /Reproductive History - 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: /Reproductive Hx- 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 Hx Now No 06/10/24 08:11 Gestational Age [...] mg tablet 15 mg PO DAILY 06/10/24 04/06/23 History Allergy/AdvReac Type Severity Reaction Status Date / Time No Known Allergies Allergy Verified 07/03/24 07:07 Family History Mother CAD (coronary artery disease) [place] age 47 Hypertension Brother Hypertension Diabetes Other [...] [facility] History and physical note [facility] Medical Records Department [address] [place] [address] H&P 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 Florian Johns MD Status:REG S AL Location: [place] [address] History and Physical Date of Admission: 07/03/24 [...] Negative ? PAST SURGICAL HISTORY OF 05/2017 [facility] ? REDUCTION OF LARGE BREAST Bilateral 2019 [...] [facility] NoteHNO ID: [id number] Author: YASMIN KEE MD Service: ? Author Type: Physician Type: Progress Notes Filed: 06/09/2024 17:27 Note Text:[facility]03-11-2025 History of Present illness Narrative* Yasmin Kee MD - 06/09/2024 5:25 PM EDT [facility] History and physical note * Yasmin Kee [...] history, medications and allergies Yasmin Jackson MD [facility]03-11-2025 History and physical note* Yasmin Kee MD [...] PAST SURGICAL HISTORY OF 05/2017 [facility] REDUCTION OF LARGE BREAST Bilateral 2020 [...] allergies Yasmin Jackson MD [facility]-2025 NoteHNO ID: [id number] Author: YASMIN KEE MD Service: ? 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 PAST MEDICAL HISTORY Diagnosis Date Diabetes (HCC) Dysmetabolic syndrome Gout Hypercholesteremia Hypertension Hypothyroidism PAST SURGICAL HISTORY Procedure Laterality Date ASPIRATIONAND/INJECTION GANGLION CYST ANY LOCATJ Right 04/2023 removal cyst MIRENA 03/23/2013 OFFICE LEEP 02/13/2013 Negative PAST SURGICAL HISTORY OF 05/2017 gastric bi pass- [facility] REDUCTION OF LARGE BREAST Bilateral 2020 VAGINOSCOPY [...] which included preparing to see the patient, [id number] patient care, completing clinical documentation, obtaining and/or reviewing separately obtained history, performing a medically appropriate examination, and counseling and educating the patient/family/caregiver. 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 PAST MEDICAL HISTORY Diagnosis Date Diabetes (HCC) Dysmetabolic syndrome Gout Hypercholesteremia Hypertension Hypothyroidism PAST SURGICAL HISTORY Procedure Laterality Date ASPIRATION&/INJECTION GANGLION CYST ANY LOCATJ Right 04/2023 removal cyst MIRENA 03/23/2013 OFFICE LEEP 02/13/2013 Negative PAST SURGICAL HISTORY OF 05/2017 gastric bi [facility] REDUCTION OF LARGE BREAST Bilateral 2020 [...] which included preparing to see the patient, [id number] patient care, completing clinical documentation, obtaining and/or reviewing separately obtained history, performing a medically appropriate examination, and counseling and educating the patient/family/caregiver. Yasmin Crouch MD [facility]01-[facility]25 Telephone encounter Note * Telephone Encounter - Desiree Vann RN - 04/09/2024 9:07 AM EST Patient not able to leave work today. Scheduled for another date. Desiree Vann RN [facility]01-09-2025 Miscellaneous Notes* Telephone Encounter - Desiree Vann RN - 04/09/2024 9:07 AM EST Patient not able to leave work today. Scheduled for another date. Desiree Vann RN * Telephone Encounter - Yasmin Kee MD - 04/09/2024 8:00 AM EST Yes, please schedule with me. I have openings today. * Telephone Encounter - Brandy Lackey RN - 04/08/2024 4:50 PM EST Patient last seen for annual exam on 09/17/23. Do you want patient to schedule consult for tubal. Brandy Lackey RN documented in [facility] encounter[facility]01-[facility]-2025 Telephone encounter Note * Telephone Encounter - Yasmin Kee MD - 04/09/2024 8:00 AM EST Yes, please schedule with me. I have openings today. [facility]01-08-2025 Telephone encounter Note* Telephone Encounter - Brandy Lackey RN - 04/08/2024 4:50 PM EST Patient last seen for annual exam on 09/17/23. Do you want patient to schedule consult for tubal. Brandy Lackey RN [facility]07-01-2024 Telephone encounter Note* Telephone Encounter - Brandy Lackey RN - 09/30/2023 9:16 AM EDT Patient notified and voiced understanding. Patient states she will contact office if she would liketo see dermatology. Brandy Lackey RN [facility]07-01-2024 Miscellaneous Notes* Telephone Encounter - Brandy Lackey RN - 09/30/2023 9:16 AM EDT Patient notified and voiced understanding. Patient states she will contact office if she would liketo see dermatology. Brandy Lackey RN * Telephone Encounter - Yasmin Kee [...] opinion by Dermatology. * Telephone Encounter - aPt Marquez LPN - 09/26/2023 4:57 PM EDT Testosterone and DHEA lab results from [facility] received and to Dr. Jackson to review. Results entered in scanned documents documented in this encounterSum[facility] Health06-30-2024 Telephone encounter Note * Telephone Encounter - [...] would also recommend second opinion by Dermatology. [facility]06-27-2024 Telephone encounter Note* Telephone Encounter - Pat Marquez LPN - 09/26/2023 4:57 PM EDT Testosterone and DHEA lab results from [facility] received and to Dr. Jackson to review. Results entered in scanned documents [facility]2023 Instructions* Patient Instructions* Yasmin Jackson MD - [...] salmon and sardines and vegetables, such as Latvian cabbage, kale, and broccoli. Foods fortified with [...] acid, calcium carbonate is found in some [id number]-osn-lcrumcu antacid products, such as Tums and Rolaids [...] prescribed by your doctor. 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 Hair loss stable since last year. Planning trip to [place]. Daughter getting this year. Menses: no menses - Mirena IUD. 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 NEURO: alert and oriented x3,exam grossly non-focal EXTREMITIES: normal ASSESSMENT/PLAN: 1) Health maintenance: Pap/HPV up to date. Mammogram ordered [facility] Nutrition, exercise and routine health maintenance exams reviewed. Calcium/vit d information provided. 2) Contraception: IUD. Contraceptive options reviewed and information provided. 3) STD screening: Declined STD check. 4) Follow up one year or sooner as needed Yasmin Crouch MD documented in this encounterSumma Health01-16-2023 [facility] Rose Geiger [facility] Note Date/Time July 03, 2024 12:1 0pm [facility] Medical Records Department [address] [place] [address] Anesthesia Postop Eval II 07/03/24 1050 MR#: [id number] Acct: [id number] Name: NICOLASA CASTILLO Rep #:[id number] : 1975 49 From: Rose Geiger PCP: Dr. 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.[email or web address] Spontaneous unlabored Yes 07/03/24 09:33 GLOBAL LOGISTICS MANAGER.LMIL respirations Mental status Awake 07/03/24 09:33 GLOBAL LOGISTICS MANAGER.LMIL nausea No 07/03/24 09:33 GLOBAL LOGISTICS MANAGER.LMIL Vomiting No 07/03/24 09:33 GLOBAL LOGISTICS MANAGER.LMIL Anesthesia Postop Eval I: Fluid Summary Crystalloid volume administer 1,000 07/03/24 09:33 GLOBAL LOGISTICS MANAGER.LMIL (ml) Colloids volume administered ( ml) Blood Product volume administered (ml) Total IV fluid infused 1,000 07/03/24 09:33 GLOBAL LOGISTICS MANAGER.LMIL Anesthesia Postop Eval I: Summary Notes Anesthesia Complication No 07/03/24 09:33 GLOBAL LOGISTICS MANAGER.LMIL Anesthesia Complication Comment: Post-operative progress note Anesthesia: Postop Eval II Evaluation Mental status: Awake Pain Level: 2 nausea: No Vomiting: No 07/03/24 1050 <Electronically signed by Rose Sirc a> Date _ Rose De Santiago Signature: Date CC: ~ Signed [facility] Work Phone: Evaluation noteNo assessment information available [facility] Work Phone: Evaluation note* Diagnosis Encounter for gynecological examination (general) (routine) without abnormal findings- Primary Encounter for screening mammogram for breast cancer [facility] Diagnosis Sterilization consult- Primary Other general counseling and advice for contraceptive management documented in this encounter [facility] note* Diagnosis Sterilization consult- Primary Other general counseling and advice for contraceptive management Abnormal uterine bleeding (AUB) Dysmenorrhea Pre-op exam Preoperative examination, unspecified [facility] Additional Instructions Implant Used?: [facility] Work Phone: Reason for referral (narrative)* Diagnostic Procedure Only (Routine) - Pending Review Specialty Diagnoses / Procedures Referred By Aurelio philip Referred To Contact [facility] Diagnoses Encounter for screening mammogram for breast cancer Procedures RORY SCREENING SCREENING MAMMOGRAPHY BI 2-VIEW BREAST INC CAD Yasmin Kee MD [facility] [place] [address] [facility] [address] [place] [address] Referral ID Status Reason Start Date Expiration Date Visits Requested Visits Authorized [id number] Pending Review Auto-Generat ed Referral 06/18/2022 07/18/2023 1 1 [facility] for referral (narrative)No reason for referral [...] 2 014 2:14pm Living Will No February 21, 2 020 4:30pm Power of Technical Advisor No February 22, 2020 4:30pm Advance Directive Response Recorded Date/ Time Advance Directives No June 17, 2 014 1:14pm Living Will No February 21, 2 020 3:30pm Power of Technical Advisor No February 22, 2020 3:30pm Advance Directive Response Recorded Date/ Time Advance Directives No June 17, 2 014 1:14pm Living Will No April 08 1:20pm Power of Technical Advisor No April 08, 2 024 1:20pm Advance Directive Response Recorded Date/ Time Living Will No June 10, 2024 8:11am Do you have a Healthcare Power of Technical Advisor? No June 10, 2024 8:11am Advance Directives No June 17, 2 014 2:14pm Chief Complaint and Reason for Visit Chief Complaint PARESTHESIA OF RIGHT HAND PARESTHESIA OF RIGHT HAND Chief Complaint PARESTHESIA OF RIGHT HAND PARESTHESIA OF RIGHT HAND SCREENING Chief Complaint WRIST GANGLION CYST REMOVAL Chief Complaint Admit Date Laparoscopic, Salpingectomy, possible Li letta IUD July 03, 2024 6:49am Chief Complaint Admit Date Laparoscopic, Salpingectomy, possible Li letta IUD July 03, 2024 6:49am XRAY OF CERVICAL SPINE July 27, 2024 3:02pm SCREENING September 22, 2024 5:15 pm Additional Source Comments INFORMATION SOURCE (unrecogn ized section and content) DATE CREATED AUTHOR 09/19/2017 [facility] [employer] [facility] DATE CREATED AUTHOR AUTHOR'S ORGANIZ ATION 01/07/2025 [facility] DATE CREATED AUTHOR AUTHOR'S ORGANIZ ATION 01/16/2025 [facility] Goals (unrecognized section and content) Goals [...] Lopez MD Family Provider Active Dr. Florian Jhons MD Primary Care Provider Active Team Status: [...] MD Primary Care Provider, Attending Provider Active Inbound Call Center Representative Relationship Specialty Start Date End Date Luis E Lopez Chi PCP - General Family Medicine 12/12/12 Team Status: Inactive Member Role Status Dates Dr. Florian Johns MD Primary Care Provider Active Dr. Yasmin Crouch MD Attending Provider Ac tive Team Status: Active Member Role Status Dates Dr. Florian Johns MD Primary Care Provi ab, Referring Provider, Other Provider Active Dr. Dao Dawson DO Attending Provider Active Team Status: Inactive Member Role Status Dates Dr. Florian Johns MD Primary Care Provider Active Dr. Neo Youssef DO Attending Provider, Referring Provider Active Inbound Call Center Representative Relationship Specialty Start Date End Date Luis E Lopez Chi PCP - General Family Medicine 12/12/12 Inbound Call Center Representative Relationship Specialty Start Date End Date Luis E Lopez Chi PCP - General Family Medicine 12/12/12 Inbound Call Center Representative Relationship Specialty Start Date End Date Luis [...] July 03, 2024 End: July 03, 2024 Inbound Call Center Representative Relationship Specialty Start Date End Date Luis E Lopez Chi PCP - General Family Medicine 12/12/12 Team Status: Active Member Role/Relationship Status Dates Dr. Florian Johns MD Primary Care Provider Active Team Status: Inactive Member Role/Relationship Status Dates Dr. Florain Johns MD Primary Care Provider Active Start: July 03, 2024 End: July 03, 2024 Dr. Yasmin Crouch MD Attending Provider Ac tive Start: July 03, 2024 End: July 03, 2024 Dr. Yasmin Crouch MD Referring Provider Ac tive Start: July 03, 2024 End: July 03, 2024 Team Status: Inactive Member Role/Relationship Status Dates Dr. Florian Johns MD Primary Care Provider Active Start: July 27, 2024 End: July 27, 2024 Dr. Matthew Moyer MD Attending Provider Active Start: July 27, 2024 End: July 27, 2024 Dr. Matthew Moyer MD Referring Provider Active Start: July 27, 2024 End: July 27, 2024 Team Status: Inactive Member Role/Relationship Status Dates Dr. Florian Johns MD Primary Care Provider Active Start: September 22, 2024 End: September 22, 2024 Dr. Yasmin Crouch MD Attending Provider Ac tive Start: September 22, 2024 End: September 22, 2024 Dr. Yasmin Crouch MD Referring Provider Ac tive Start: September 22, 2024 End: September 22, 2024 Source Comments (unrecognize d section and content) In the event this informatio n is protected by the Federal Confidentiality of Alcohol and Drug Abuse Patient Records regulations: The Federal rules restrict any use of the information to criminally investigate or prosecute any alcohol or drug abuse patient.[facility] HealthIn the event this information is protected by the Federal Confidentiality of Alcohol and Drug Abuse Patient Records regulations: The Federal rules restrict any use of the information to criminally investigate or prosecute any alcohol or drug abuse patient.[facility] HealthIn the event this information is protected by the Federal Confidentiality of Alcohol and Drug Abuse Patient Records regulations: The Federal rules restrict any use of the information to criminally investigate or prosecute any alcohol or drug abuse patient.[facility] HealthIn the event this information is protected by the Federal Confidentiality of Alcohol and Drug Abuse Patient Records regulations: The Federal rules restrict any use of the information to criminally investigate or prosecute any alcohol or drug abuse patient.[facility] HealthIn the event this information is protected by the Federal Confidentiality of Alcohol and Drug Abuse Patient Records regulations: The Federal rules restrict any use of the information to criminally investigate or prosecute any alcohol or drug abuse patient.[facility] HealthIn the event this information is protected by the Federal Confidentiality of Alcohol and Drug Abuse Patient Records regulations: The Federal rules restrict any use of the information to criminally investigate or prosecute any alcohol or drug abuse patient.[facility] HealthIn the event this information is protected by the Federal Confidentiality of Alcohol and Drug Abuse Patient Records regulations: The Federal rules restrict any use of the information to criminally investigate or prosecute any alcohol or drug abuse patient.[facility] Reason for Visit (unrecogniz ed section and [...] BE BASED ON THE PRIMARY CLINICAL RECORDS. [email or web address]. provides no warranty or guarantee of the accuracy or completeness of information in this document.
[2025-01-18] MEDS: Lactated Ringers 1,000 ML 15 ML IV (06:52)
--- NOTE | 2025-01-18 07:00 | RAD_ITS ---
PROCEDURE: FLUOR GUIDANCE FOR SPINE INJ; OR-STEROID INJ/CER THOR/1ST L 01/18/2025 REASON FOR EXAM: CERVICAL EPIDURAL BLOCK TECHNIQUE: Procedure Code: RADSPN; RADORSTINJCT1 Modality: DX Procedure: FLUOR GUIDANCE FOR SPINE INJ; OR-STEROID INJ/CER THOR/1ST L Fluoroscopy time: 3.5 seconds. Dose: 0.69 mGy. COMPARISON: None. RAD/OR-Steroid Inj/Cer Thor/1st L IMPRESSION: Fluoroscopy was performed for cervical spine injection. 3 fluoroscopic images were also obtained. Reading Location: [id number]
--- NOTE | 2025-01-18 07:00 | RAD_ITS ---
PROCEDURE: FLUOR GUIDANCE FOR SPINE INJ; OR-STEROID INJ/CER THOR/1ST L 01/18/2025 REASON FOR EXAM: CERVICAL EPIDURAL BLOCK TECHNIQUE: Procedure Code: RADSPN; RADORSTINJCT1 Modality: DX Procedure: FLUOR GUIDANCE FOR SPINE INJ; OR-STEROID INJ/CER THOR/1ST L Fluoroscopy time: 3.5 seconds. Dose: 0.69 mGy. COMPARISON: None. RAD/Fluor Guidance for Spine Inj IMPRESSION: Fluoroscopy was performed for cervical spine injection. 3 fluoroscopic images were also obtained. Reading Location: [id number]
--- NOTE | 2025-01-18 07:55 | PRE.ANES_ITS ---
ASA Classification* ASA Classification ASA Classification: 2 Assessment & Plan Anesthesia* Anesthesia Assessment Anesthesia Assessment: Discussed sedation and/or anesthesia options, risks, benefits, and alternatives with patient/parents/legal guardian/POA. Questions invited. The patient/parents/legal guardian/POA seems to understand and agrees to proceed with anesthesia plan. Reviewed the physical assessment, medical history, allergy history and patient home medications list prior to surgery/procedure/anesthetic and documented any changes. Performed airway and anesthesia risk assessments. Anesthesia Type Anesthesia Type: MAC Anesthesia Focused Assessment* Temperature: 97.6 F Pulse Rate: 69 Blood Pressure: 122/83 Respiratory Rate: 16 Pulse Ox: 98 Airway Assessment Mouth opens: >3 cm Mallampati Score: II Labs Anesthesia Preop lab: CBC WBC, (4.4-11.0) 3.9 K/mm3 L 07/03/24, 07:20 RBC, (4.2-5.4) 3.76 M/mm3 L 07/03/24, 07:20 Hgb, (12.0-15.0) 11.0 g/dL L 07/03/24, 07:20 Hct, (37-47) 33.4 % L 07/03/24, 07:20 Plt Count, (150-450) 246 K/mm3 07/03/24, 07:20 CHEMISTRY Potassium, (3.3-5.1) 3.9 mmol/L 07/03/24, 07:20 Sodium, (133-145) 142 mmol/L 07/03/24, 07:20 BUN, (4-19) 21 mg/dL H 07/03/24, 07:20 Creatinine, (0.70-1.20) 0.66 mg/dL L 07/03/24, 07:20 Glucose, (70-99) 94 mg/dL 07/03/24, 07:20 POC Glucose, (70-110) 85 mg/dL 02/23/20, 11:22 TSH, (0.300-4.200) 2.140 uIU/mL 07/03/24, 07:20 COAG PT, (11.7-14.9) 12.7 SECONDS 02/22/20, 07:13 Urine Test Negative Negative 07/03/24, 07:00 Pre-Assessment Diagnosis/Proposed Procedure Planned Operative Procedure(s): (N/A) Block, Cervical Epidural Anesthesia History 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 When Was Last Pacemaker Check QUESTION #4 FULL TEXT: You/Your Family Experience fever (hyperthermia) with Anesthesia Last Oral Intake Last Oral intake: Last Oral Intake NPO since 22:00 01/18/25 06:43 Meds taken in AM with sips of water? 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 Female Yes 01/07/25 13:33 HX of Motion Sickness No 01/07/25 13:33 HX of N/V After Surgery No 01/07/25 13:33 Non-Smoker Yes 01/07/25 13:33 Duration of Surgery greater No 01/07/25 13:33 than 60 minutes Number of Risk Factors 2 01/07/25 13:33 PONV Score Moderate Risk 01/07/25 13:33 Height & Weight Height & Weight: Anesthesia: Height & Weight Height 5 ft 7 in 01/18/25 06:43 Weight: 88.451 kg 01/18/25 06:43 Body Mass Index (BMI) 30.5 01/18/25 06:43 Respiratory Assessment Respiratory Assessment - 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 Has anyone observed you stop No 01/07/25 13:33 breathing during sleep? STOP Results Negative 01/07/25 13:33 QUESTION #5 FULL TEXT : Do you snore loudly (louder than talking or can be heard through closed doors)? 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 Specify any problems Hx of Preganancy in last 3 No 01/07/25 13:33 Months Nurse Filling Out Transfusion MGRIFFITH 01/07/25 13:33 & Questions: Date: 01/07/25 01/07/25 13:33 Time: 13:35 01/07/25 13:33 Patient unable to answer at this time (ie. 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: /Reproductive Hx- power generating plant operator Hx Now No 01/07/25 13:33 Gestational Age (in weeks): EDC: Hx Hx Para Hx Section SAB No 01/07/25 13:33 Active Medications Active Medications: Current Medications Generic Name Dose Route Start Last Admin Trade Name Freq PRN Reason Stop Dose Admin Lactated Ringer's 1,000 mls @ 15 mls/hr 01/18/25 06:45 01/18/25 06:52 IV 15 mls/hr .Q48H DAVE Administration PFSH Medical History Thyroid disease Non-smoker History of edema Alcohol use Migraine headache Leg cramps History of echocardiogram History of stress test Cardiology follow-up encounter Wears glasses Nonhealing surgical wound Excessive weight loss Intertrigo Shoulder pain Chronic thoracic back pain Chronic neck pain Macromastia Anxiety and depression Hyperlipidemia Gout Obstructive sleep apnea Obesity Hypertension Type 2 diabetes mellitus without complications Home Medications ?Medication ?Instructions ?Recorded ?Last Taken ?Type levothyroxine 88 mcg tablet 88 mcg PO DAILY thyroid 01/17/25 History allopurinol 100 mg tablet 100 mg PO DAILY 06/10/24 History bupropion HCl 300 mg 24 hr tablet, 300 mg PO DAILY 03/2501/17/25 History extended release meloxicam 15 mg tablet 15 mg PO DAILY 06/10/2412/30 History Allergy/AdvReac Type Severity Reaction Status Date / Time No Known Allergies Allergy Verified 01/18/25 06:42 Family History Mother CAD (coronary artery disease) OR age 47 Hypertension Brother Hypertension Diabetes Other Arthritis Surgical History History of tubal ligation Hx of hand surgery History of bilateral breast reduction surgery History of gastric bypass History of carpal tunnel release Social History Smoking Status: Never smoker alcohol intake: current alcohol intake frequency: holidays/special occasions only substance use type: does not use additional social history: DOES NOT TAKE IBUPROFEN DOES TAKE ASPIRIN NEEDED Review of Systems (Anesthesia) ROS Narrative System reviewed and no additional complaints, except as documented.
--- NOTE | 2025-01-18 08:05 | PCM.POST.ANE ---
Anesthesia: Postop Eval I Current Vital Signs Temperature: 98.2 F Pulse Rate: 72 Blood Pressure: 110/75 Respiratory Rate: 20 Pulse Ox: 98 Assessment Airway patent: Yes Spontaneous unlabored respirations: Yes nausea: No Vomiting: No Anesthesia Complication: No Fluid Hydration Crystalloid volume administer (ml): 200 Total IV fluid infused: 200 Progress Note Anesthesia document: Postop Eval 1 completed: Yes
--- NOTE | 2025-01-18 08:08 | OP.PCM_ITS ---
Operative Report (Standard) Operative Information Date of Procedure: 01/18/25 Pre-Operative Diagnosis: Cervical radiculopathy, cervical spinal stenosis, cervical degenerative disc disease Post-Operative Diagnosis: Cervical radiculopathy, cervical spinal stenosis, cervical degenerative disc disease Surgery/Procedure Performed: Cervical epidural steroid injection interlaminar at C7-T1 under fluoroscopic guidance resident surgeon: No Type of Anesthesia: Local MAC RN Documented Start/Stop Times: Operation Date: 01/18/25 08:00 Case Time Into Pre-Op 01/18/25 06:32 Anesthesia Start 01/18/25 07:51 Into Room 01/18/25 07:51 Procedure Start 01/18/25 08:00 Procedure End 01/18/25 08:04 Procedure Start Time: 08:09 Procedure Stop Time: 08:09 Select all DRAINS/GRAFTS/IMPLANTS that apply: None Estimated Blood Loss: 0 Specimen collected: No Description of surgery: ANESTHESIA: Local. BLOOD LOSS: Minimal. COMPLICATIONS: None. DESCRIPTION OF PROCEDURE: History and physical of today was reviewed. Risks and benefits of the procedure were explained. The patient understood and agreed to proceed. Informed consent was obtained. IV inserted per routine protocol. The patient was taken to the operating room and placed in the prone position with a pillow positioned underneath the chest. The neck area was prepped and draped in a sterile fashion using iodine x3. Under fluoroscopy guidance on an AP view, the C7-T1 interlaminar space was identified. The skin and subcutaneous tissue was anesthetized with approximately 3 mL of 1% lidocaine using a 25-gauge regular needle. Under direct visualization on fluoroscopy, on AP view, using a 20-gauge 2-1/2-inch Tuohy needle, the needle was advanced via the skin. The tip of the needle was maneuvered and directed towards the interlaminar space at C7- T1. Loss of resistance technique was carried to air. Loss of resistance technique was encountered. Once encountered, after negative aspiration for blood and CSF, a total of 1 mL of contrast was injected to confirm correct placement of the needle as well as cephalocaudal spread of the contrast. Confirmation was obtained on AP as well as lateral view. After repeated negati ve aspiration and confirmation, a total of 3 mL of preservative-free normal saline and 80 mg of Depo-Medrol was injected easily. The needle was then removed intact. The patient experienced no sign or symptoms of intrathecal or intravascular injection. The patient experienced no paresthesia. The procedure was completed without any apparent difficulty or any complications. The patient appeared to tolerate it well. ASSESSMENT AND PLAN: This is a 49-year-old female with cervical radiculopathy, cervical spinal stenosis, cervical degenerative disc disease, status post cervical epidural steroid injection interlaminar C7-T1 under fluoroscopic guidance, patient will continue her current medications, patient will follow-up in approximately 2 weeks for reevaluation. Surgical Findings: 0 Complications Complications: No Admit VTE Documentation VTE Present on Admission: No VTE Mechan Device Prophylaxis: None VTE Pharm Prophylaxis ordered?: No
--- NOTE | 2025-01-18 12:37 | POSTOPAN2_ITS ---
Anesthesia Postop Eval I Sum Postop Eval Completion status Anesthesia document: Postop Eval 1 completed: Yes Anesthesia Postop Eval I Summary Anesthesia Postop Eval I Summary: Anesthesia Postop Eval I: Assessment Summary Airway patent Yes 01/18/25 08:06 CORPORATE WEBMASTER.[email or web address] Spontaneous unlabored Yes 01/18/25 08:06 CORPORATE WEBMASTER.CSIR respirations Mental status nausea No 01/18/25 08:06 CORPORATE WEBMASTER.CSIR Vomiting No 01/18/25 08:06 CORPORATE WEBMASTER.CSIR Anesthesia Postop Eval I: Fluid Summary Crystalloid volume administer 200 01/18/25 08:06 CORPORATE WEBMASTER.CSIR (ml) Colloids volume administered ( ml) Blood Product volume administered (ml) Total IV fluid infused 200 01/18/25 08:06 CORPORATE WEBMASTER.CSIR Anesthesia Postop Eval I: Summary Notes Anesthesia Complication No 01/18/25 08:06 CORPORATE WEBMASTER.CSIR Anesthesia Complication Comment: Post-operative progress note Anesthesia: Postop Eval II Evaluation Mental status: Awake Pain Level: 3 nausea: No Vomiting: No
--- NOTE | 2025-01-18 12:37 | PCM.POSTANE2 ---
Anesthesia Postop Eval I Sum Postop Eval Completion status Anesthesia document: Postop Eval 1 completed: Yes Anesthesia Postop Eval I Summary Anesthesia Postop Eval I Summary: Anesthesia Postop Eval I: Assessment Summary Airway patent Yes 01/18/25 08:06 QUARTZ ORIENTATOR.CSIR Spontaneous unlabored Yes 01/18/25 08:06 QUARTZ ORIENTATOR.CSIR respirations Mental status nausea No 01/18/25 08:06 QUARTZ ORIENTATOR.CSIR Vomiting No 01/18/25 08:06 QUARTZ ORIENTATOR.CSIR Anesthesia Postop Eval I: Fluid Summary Crystalloid volume administer 200 01/18/25 08:06 QUARTZ ORIENTATOR.CSIR (ml) Colloids volume administered ( ml) Blood Product volume administered (ml) Total IV fluid infused 200 01/18/25 08:06 QUARTZ ORIENTATOR.CSIR Anesthesia Postop Eval I: Summary Notes Anesthesia Complication No 01/18/25 08:06 QUARTZ ORIENTATOR.CSIR Anesthesia Complication Comment: Post-operative progress note Anesthesia: Postop Eval II Evaluation Mental status: Awake Pain Level: 3 nausea: No Vomiting: No
== END 2025-01-18 08:44 | disposition home or self-care (01) ==
LOC: SDC 06:27 → AC 06:28
PROVIDERS: PCP Family Medicine; Referring Provider Anesthesiology Pain Medicine; Visit Provider Anesthesiology Pain Medicine
PROC: 3E0S3BZ Introduction of Anesthetic Agent into Epidural Space, Percutaneous Approach (ICD-10-PCS; CPT 62320; principal; 2025-01-18 07:55)
DX: M50.10 Cervical disc disorder with radiculopathy, unspecified cervical region (principal); M48.02 Spinal stenosis, cervical region; Z79.899 Other long term (current) drug therapy
CPT/HCPCS: 62321; 01992; 64490; 77003; J2405

== ENCOUNTER 2025-02-28 08:00 | Emergency (ER) | payer OTHER, SELFPAY ==
[2025-02-28 08:00] VITALS: BP 157/101; PULSE 70; RESP 22; TEMP 35.7; O2SAT 100; BMI 30.8
--- NOTE | 2025-02-28 08:26 | CT_ITS ---
PROCEDURE: ABDOMEN/PELVIS WITHOUT CONT 02/28/2025 REASON FOR EXAM: PAIN TECHNIQUE: Procedure Code: CTABDPEL Modality: CT Procedure: ABDOMEN/PELVIS WITHOUT CONT Noncontrast technique limits evaluation of the abdominal and pelvic viscera. Coronal and Sagittal reconstruction series were provided. One or more dose reduction techniques were used (e.g., Automated exposure control, adjustment of the mA and/or kV according to patient size, use of iterative reconstruction technique). FINDINGS: Lack of IV and oral contrast limits evaluation on portions of this study. The visualized lung bases are clear. Small hiatal hernia. Postsurgical changes of what appears to be a gastric bypass are noted. Postsurgical changes of surgical bowel anastomoses are noted in the left side of the abdomen. No pathologically dilated loops of bowel to suggest a bowel obstruction. A large amount of stool is seen within the colon. The appendix is visualized and normal-appearing. A couple of surgical clips are noted in the anterior aspect of the upper pelvis. An IUD is noted within the uterus, and appears distorted. A rounded 2.5 cm low- density in the right adnexa (series 2, image 133) probably represents an ovarian cyst. A couple of punctate 1-2 mm stones are noted within the left renal pelvis (series 601.2 images 77 and 78 A 3 mm calcification in the vicinity of the distal right ureter near the right UVJ is noted (series 2, image 148). There is mild right hydronephrosis with perinephric fat stranding, likely secondary to obstruction. Subtle densities within the lumen of the gallbladder likely represent stones. The remainder of the unenhanced and unopacified abdominal and pelvic contents appear grossly unremarkable. Mild lower lumbar spondylosis including a minimal grade 1 anterolisthesis of L4 on L5, and disc narrowing with vacuum disc phenomenon at L5-S1. CT/Abdomen/Pelvis without Cont IMPRESSION: 1. A 3 mm calcification in the vicinity of the distal right ureter near the ri ght UVJ may represent a ureteral stone. Mild right hydronephrosis with perinephric fat stranding is likely secondary to obst ruction. 2. Nonobstructing punctate left nephrolithiasis. 3. Small hiatal hernia. 4. Postsurgical changes including a gastric bypass. 5. Rounded 2.5 cm low-density in the right adnexa probably represents an ovari an cyst. IUD within the uterus and appears distorted. Reading Location: [id number]
[2025-02-28] MEDS: 0.9% Normal Saline (1000mL) 1,000 ML 999 ML IV (08:36)
--- OUTSIDE RECORDS SUMMARY | 2025-02-28 08:38 | XMS RPT_ITS | CCD ---
Author Organization [facility] Care Team Providers Care Billet Recorder Name Role Phone SUNDAR GUARDADO MD Unavailable Unavailable UNASSIGNED, DOCTOR Unavailable Unavailable Dr. Florian Johns Primary Care Provider Dr. Florian Johns Referring Provider [phone] Florian Johns Other Provider Dr. Stephen Dawson Attending Provider John, Luis E Chi Primary Care Provider Dr. Florian Johns Primary Care Provider Dr. Florian Johns Referring Provider Dr. Florian Johns Other Provider Dr. Stephen Dawson Attending Provider Dr. Dao Dawson Attending Provider John, Luis E Chi Primary Care Provider Dr. Florian Johns MD Primary Care Provider Willa LOVE, Dr. Hoffman Attending Provid er Dr. Yasmin Crouch MD Referring Provid er Dr. Matthew Moyer MD Attending Provider Dr. Matthew Moyer MD Referring Provider YASMIN KEE Attending Unavail able JOHN, LUIS E CHI Primary Care Unavailable JOHN, LUIS E CHI Primary Care Unavailable YASMIN KEE Attending Unavail able JOHN, LUIS E CHI Primary Care Unavailable YASMIN KEE Attending Unavail able Johns, Florian Primary Care Unavailable Yasmin Crouch Attending Unavail able Yasmin Crouch Referring Unavail able Zak Wing Attending Unavailable Florian Johns Primary Care Unavailable Matthew Moyer Attending Unavailable Matthew Moyer Referring Unavailable Florian Johns Primary Care Unavailable Yasmin Crouch Attending Unavail able Yasmin Crouch Referring Unavail able Florian Johns Primary Care Unavailable Matthew Moyer Attending Unavailable Matthew Moyer Referring Unavailable Florian Johns Primary Care Unavailable Andreas LOVE, Dr. Du Primary Care Physician [phone] João LOVE, Dr. Castro Attending Physician [phone] Dr. Matthew Moyer MD Referring Provider [phone] Medications Current Medications Medication Drug Class(es) Dates Sig (Normalized) Sig (Original) allopurinol 100 mg oral tablet (20 sources) Xanthine Oxidase Inhibitor Start: 06-10-2024 take 1 tablet by mouth once daily Allopurinol 100 mg tablet Active 100 mg PO DAILY June 09, 2024 11:00pm Complies with drug therapy Start: 03-18-2017 End: 06-10-2024 take 1 tablet by mouth once daily Allopurinol 300 mg tablet Discontinued 300 mg PO daily March 18, 2017 12:00am June 10, 2024 7:10am gout Start: 01-22-2006 End: 03-18-2017 take 1 tablet by mouth once daily at mealtime Allopurinol 100 MG tablet Discontinued 100 mg PO DAILY WITH MEALS June 16, 2013 11:00pm March 18, 2017 6:18pm Comment on above: Take one(1) tablet d aily. 24 hr buPROPion hydrochloride 300 mg extended release oral tablet (20 sources) Aminoketone Start: take 1 tablet by mouth once daily Bupropion Hcl 300 mg tablet extended release 24 hr Active 300 mg PO DAILY June 09, 2024 11:00pm Complies with drug therapy Start: 05-21-2022 take 1 tablet by alexander th once daily buPROPion SR (ZYBAN SR; WELLBUTRIN SR) 150 mg 12 hr tablet Take 1 tablet by mouth once daily. 05/21/2022 Active Start: 09-24-2019 End: 06-10-2024 take 1 tablet by mouth once daily in the morning Bupropion Hcl 150 mg tablet extended release 24 hr Discontinued 150 mg PO EVERY MORNING September 23, 2019 11:00pm June 10, 2024 7:09am depression Comment on above: Take 1 tablet by alexander th once daily. levonorgestrel 0.284607 mg/hr intrauterine system (7 sources) Progestin, Progestin-containing Intrauterine Device levonorgestrel (MIRENA) 21 mcg/24 hours (8 yrs) 52 mg IUD 1 Each by INTRAUTERINE route one time only. Active Comment on above: 1 Each by INTRAUTERI NE route one time only. levothyroxine sodium 0.088 mg oral tablet (18 sources) l-Thyroxine Start: 01-23-20 take 1 tablet by mouth once daily Levothyroxine 88 MCG tablet Active 88 ug PO DAILY June 16, 2013 11:00pm thyroid Complies with drug therapy Comment on above: Take one(1) tablet d aily. meloxicam 15 mg oral tablet (3 sources) Nonsteroidal Anti-inflammatory Drug Start: 06-11-19 take 1 tablet by mouth once daily Meloxicam 15 mg tablet Active 15 mg PO DAILY June 09, 2024 11:00pm Complies with drug therapy Nq-Jd-Kmio-Fa-Ca Carb-Vit K (8 sources) Start: 02-10-20 Xo-Cy-Zaay-Fa-Ca Carb-Vit K Active 1 EACH PO DAILY February 10, 2020 2:09pm Start: 02-10-2020 Ne-On-Uqgt-Fa- Ca Carb-Vit K Active 1 EACH PO DAILY February 10, 2020 1:00am Start: 02-10-2020 Tn-Xz-Mujr-Fa- Ca Carb-Vit K Active 1 EACH PO [...] 0 April 20, 2020 April 08, 2023 1:19pm Other acute postprocedural pain Start: 03-30-2020 End: 04-13-2020 Oxycodone-Acetaminophen (Per cocet) 5-325 mg tablet Discontinued 1 {tbl} PO TWICE A DAY as needed for pain (scale score 7-10) 14 0 March 30, 2020 April 13, 2020 3:42pm Other acute postprocedural pain Start: 03-17-2020 End: 03-24-2020 Oxycodone-Acetaminophen (Per cocet) 5-325 mg tablet Discontinued 1 {tbl} PO THREE TIMES A DAY as needed for pain (scale score 7-10) 21 7 0 March 17, 2020 March 23, 2020 12:00am March 24, 2020 12:02am Other acute postprocedural pain Start: 03-02-2020 End: 03-09-2020 Oxycodone-Acetaminophen (Per cocet) 5-325 mg tablet Discontinued 1 {tbl} PO 4 TIMES DAILY as needed for pain (scale score 7-10) 28 7 0 March 02, 2020 March 08, 2020 12:00am March 09, 2020 12:02am Other acute postprocedural pain Start: 02-23-2020 End: 03-01-2020 Oxycodone-Acetaminophen 1 TA BLET tablet Discontinued 1 {tbl} PO EVERY 4 HOURS NEEDED as needed for Pain Score 6-10 40 7 0 February 23, 2020 February 29, 2020 12:00am March 01, 2020 12:02am Other acute postprocedural pain 40 tabs (forty) [...] NEEDED as needed for Pain 60 June 17, 2013 11:00pm March 18, 2017 6:22pm Start: 06-18-2013 End: 03-18-2017 take 1 tablet by mouth every four hours as needed Oxycodone-Acetaminophen Discontinued 1 - 2 TABLET PO EVERY 4 HOURS NEEDED 60 June 17, 2013 11:00pm March 18, 2017 6:22pm ascorbic acid 500 mg oral tablet (11 sources) Vitamin C Start: 03-19-2017 End: 09-24-2019 take 1 tablet by mouth once daily Ascorbic Acid (Vitamin C) (Vitamin C With Kaylee Hips) 500 mg tablet Discontinued 500 mg PO daily March 19, 2017 12:00am September 24, 2019 3:15pm aspirin 81 mg delayed release oral tablet (11 sources) Platelet Aggregation Inhibitor, Nonsteroidal Anti-inflammatory Drug Start: 03-19-2017 End: 09-24-2019 Aspirin (Adult Low Dose Aspirin) 81 mg tablet,delayed release (DR/EC) Discontinued 81 mg PO daily March 19, 2017 12:00am September 24, 2019 3:18pm atorvastatin 80 mg oral tablet (12 sources) HMG-CoA Reductase Inhibitor Start: 03-18-2017 End: 09-24-2019 take 1 tablet by mouth once daily Atorvastatin 80 mg tablet Discontinued 80 mg PO daily March 18, 2017 12:00am September 24, 2019 3:15pm End: 06-18-2022 take 1 tablet by mouth once daily atorvastatin (LIPITOR) 10 mg tablet Take 10 mg by mouth once daily. 0 06/18/2022 Discontinued Comment on above: Take 10 mg by mouth once daily. cefadroxil 500 mg oral capsule (11 sources) Cephalosporin Antibacterial Start: End: take 1 capsule by mouth twice daily Cefadroxil 500 MG capsule Discontinued 500 mg PO TWICE A DAY 10 February 23, 2020 12:00am March 09, 2020 1:36pm cholecalciferol 0.05 mg oral capsule (11 sources) Vitamin D Start: 017 End: take 1 capsule by mouth once Cholecalciferol (Vitamin D3) 2,000 unit capsule Discontinued 2000 U PO ONCE March 19, 2017 12:00am September 24, 2019 3:15pm 24 hr desvenlafaxine 100 mg extended release oral tablet (12 sources) Serotonin and Norepinephrine Reuptake Inhibitor Start: 014 End: take 1 tablet by mouth once daily Desvenlafaxine Succinate 100 MG tablet Discontinued 100 mg PO DAILY June 16, 2013 11:00pm March 18, 2017 6:22pm End: 06-18-2022 take 1 tablet by mouth once daily, then take 1 tablet by mouth every twenty-four hours desvenlafaxine ER (PRISTIQ) 100 mg 24 hr tablet Take 100 mg by mouth once daily. 0 06/18/2022 Discontinued Comment on above: Take 100 mg by mouth once daily. diazePAM 5 mg oral tablet (11 sources) Benzodiazepine Start: End: take 1 tablet by mouth at bedtime as needed for anxiety Diazepam (Valium) 5 mg tablet Discontinued 5 mg PO AT BEDTIME as needed for anxiety 5 0 February 17, 2020 12:00am February 23, 2020 1:58pm 5 tabs (five) docusate sodium 100 mg oral capsule (11 sources) Start: End: take 1 capsule by mouth twice daily as needed for constipation Docusate Sodium 100 MG capsule Discontinued 100 mg PO TWICE DAILY NEEDED as needed for Constipation 10 0 June 17, 2013 11:00pm March 18, 2017 6:23pm DULoxetine 30 mg delayed release oral capsule (11 sources) Serotonin and Norepinephrine Reuptake Inhibitor Start: End: take 1 capsule by mouth once daily Duloxetine (Cymbalta) 30 mg capsule,delayed release(DR/EC) Discontinued 30 mg PO daily March 18, 2017 12:00am September 24, 2019 3:16pm empagliflozin 25 mg oral tablet (11 sources) Sodium-Glucose Cotransporter 2 Inhibitor Start: End: take 1 tablet by mouth once daily in the morning Empagliflozin (Jardiance) 25 mg tablet Discontinued 25 mg PO EVERY MORNING March 18, 2017 12:00am September 24, 2019 3:16pm fenofibric acid 135 mg delayed release oral capsule (11 sources) Peroxisome Proliferator Receptor alpha Agonist Start: End: take 1 capsule by mouth once daily Fenofibric Acid (Choline) 135 MG capsule,delayed release(DR/EC) Discontinued 135 mg PO DAILY June 16, 2013 11:00pm March 18, 2017 6:22pm gabapentin 300 mg oral capsule (20 sources) Anti-epileptic Agent Start: 025 End: 025 take 1 capsule by mouth at bedtime Gabapentin 300 mg capsule Discontinued 300 mg PO AT BEDTIME June 09, 2024 11:00pm January 07, 2025 12:31pm Start: 03-17-2020 End: 04-08-2023 take 1 capsule by mouth twice daily Gabapentin 100 mg capsule Discontinued 100 mg PO TWICE A DAY 60 30 1 April 15, 2020 1:38pm April 08, 2023 1:19pm metFORMIN hydrochloride 1000 mg oral tablet (12 sources) Biguanide Start: 06-17-2013 End: 03-18-2017 Metformin 1,000 MG tablet Discontinued 1000 mg PO June 16, 2013 11:00pm March 18, 2017 6:22pm End: 06-18-2022 take 2 tablets by mouth twice daily at mealtime metFORMIN (GLUCOPHAGE) 500 mg tablet Take 1,000 mg by mouth twice daily with meals. 0 06/18/2022 Discontinued Comment on above: Take 1,000 mg by alexander th twice daily with meals. metFORMIN hydrochloride 1000 mg / SITagliptin 50 mg oral tablet (11 sources) Biguanide, Dipeptidyl Peptidase 4 Inhibitor Start: 7 End: 0 Sitagliptin Phos-Metformin (Janumet) 50-1,000 mg tablet Discontinued 1 {tbl} PO TWICE A DAY March 18, 2017 12:00am September 24, 2019 3:16pm Ct-Wn-Loqb-Fa-Ca Carb-Vit K 1 EACH tablet (3 sources) Start: 0 End: 5 take 1 tablet by mouth once daily Sb-Be-Ehij-Fa-Ca Carb-Vit K 1 EACH tablet Discontinued 1 NMA PO DAILY February 10, 2020 12:00am June 10, 2024 7:10am vitamin Start: 02-10-2020 End: 06-10-2024 take 1 tablet by mouth once daily Xk-Po-Pnav-Fa-Ca Carb-Vit K 1 EACH tablet Discontinued 1 NMA PO DAILY February 10, 2020 1:00am June 10, 2024 8:10am vitamin Start: 02-10-2020 End: 06-10-2024 take 1 tablet by mouth once daily Np-Iv-Zhjc-Fa-Ca Carb-Vit K 1 EACH tablet Discontinued 1 NMA PO DAILY February 10, 2020 1:00am June 10, 2024 8:10am omeprazole 20 mg delayed release oral capsule (11 sources) Proton Pump Inhibitor Start: 03-18-2017 End: 09-24-2019 take 1 capsule by mouth once daily Omeprazole Magnesium 20 mg capsule,delayed release(DR/EC) Discontinued 20 mg PO daily March 18, 2017 12:00am September 24, 2019 3:16pm potassium gluconate 2.5 meq oral tablet (11 sources) Start: 03-19-2017 End: 09-24-2019 take 1 tablet by mouth once daily Potassium Gluconate 595 mg (99 mg) tablet Discontinued 595 mg PO daily March 19, 2017 12:00am September 24, 2019 3:16pm promethazine hydrochloride 25 mg oral tablet (11 sources) Phenothiazine Start: 06-18-2013 End: 03-18-2017 take 1 tablet by mouth every four hours as needed for nausea Promethazine 25 MG tablet Discontinued 25 mg PO EVERY 4 HOURS NEEDED as needed for Nausea 10 0 June 17, 2013 11:00pm March 18, 2017 6:22pm rosuvastatin calcium 5 mg oral tablet (11 sources) HMG-CoA Reductase Inhibitor Start: 06-17-2013 End: 03-18-2017 take 1 tablet by mouth every other day Rosuvastatin 5 MG tablet Discontinued 5 mg PO EVERY OTHER DAY June 16, 2013 11:00pm March 18, 2017 6:21pm spironolactone 25 mg oral tablet (12 sources) Aldosterone Antagonist Start: 06-17-2013 End: 06-18-2022 take 1 tablet by mouth twice daily Spironolactone 25 MG tablet Discontinued 25 mg PO TWICE A DAY June 16, 2013 11:00pm March 18, 2017 6:22pm Comment on above: Take 25 mg by mouth twice daily. valsartan 320 mg oral tablet (12 sources) Angiotensin 2 Receptor Timur Start: 06-17-2013 End: 06-18-2022 take 1 tablet by mouth once daily Valsartan 320 MG tablet Discontinued 320 mg PO DAILY June 16, 2013 11:00pm September 24, 2019 3:16pm Comment on above: Take 320 mg by mouth once daily. vitamin b12 1 mg oral tablet (11 sources) Vitamin B12 Start: 03-19-2017 End: 09-24-2019 take 1 tablet by mouth once daily Cyanocobalamin (Vitamin B-12) (Vitamin B-12) 1,000 mcg tablet Discontinued 1000 ug PO daily March 19, 2017 12:00am September 24, 2019 3:16pm Problems Active Problems Problem Classification Problem Date Documented Da te Episodic/Chronic Complications of surgical procedures or medical care (11 sources) Non-healing surgical wound; Translations: [Other complications of procedures, not elsewhere classified, initial encounter] 04-15-2020 Episodic Comment on above: right breast at [place] Coronary atherosclerosis and other heart disease (1 source) Coronary atherosclerosis and other heart disease Onset: 06-11-2017 Diabetes mellitus without complication (18 sources) Type 2 diabetes mellitus without complication; Translations: [Type 2 diabetes mellitus without complications] Onset: 12-24-2012 09-24-2019 Chronic Diabetes mellitus without complication (1 source) Diabetes mellitus without complication Onset: 06-11-2017 Disorders of lipid metabolism (18 sources) Hyperlipidemia; Translations: [Hyperlipidemia, unspecified] Onset: 12-24-2012 09-24-2019 Chronic Esophageal disorders (1 source) Esophageal disorders Onset: 06-11-2017 Essential hypertension (18 sources) Hypertensive disorder; Translations: [Essential (primary) hypertension] Onset: 12-24-2012 09-24-2019 Chronic Comment on above: NO MEDS SINCE 2017 NO MEDS SINCE 2017 B YPASS SURGERY Essential hypertension (1 source) Essential hypertension Onset: 06-11-2017 Menstrual disorders (8 sources) Irregular periods; Translations: [Irregular menstruation, unspecified] Onset: 12-24-2012 12-24-2012 Chronic Nonmalignant breast conditions (11 sources) Large breast; Translations: [Hypertrophy of breast] 02-21-2020 Episodic Nonspecific chest pain (11 sources) Chest pain; Translations: [Chest pain, unspecified] 10-12-2017 Episodic Other female genital disorders (1 source) Abnormal uterine bleeding; Translations: [Abnormal uterine and vaginal bleeding, unspecified] 06-09-2024 Chronic Other gastrointestinal disorders (11 sources) History of bypass of stomach; Translations: [Bariatric surgery status] 02-23-2020 Episodic Other inflammatory condition of skin (11 sources) Intertrigo; Translations: [Erythema intertrigo] 02-21-2020 Episodic Comment on above: inframammary intertr igo Other non-traumatic joint disorders (11 sources) Shoulder pain; Translations: [Pain in unspecified shoulder] 02-21-2020 Episodic Comment on above: bilateral shoulder p ain from shoulder grooving from the weight of her breasts on her bra straps Other nutritional; endocrine; and metabolic disorders (11 sources) Obesity; Translations: [Obesity, unspecified] 03-18-2017 Chronic Other nutritional; endocrine; and metabolic disorders (7 sources) Metabolic syndrome X; Translations: [Metabolic syndrome] Onset: 12-24-2012 12-24-2012 Chronic Other nutritional; endocrine; and metabolic disorders (11 sources) Excessive weight loss; Translations: [Abnormal weight loss] 02-21-2020 Episodic Comment on above: 100 lbs from gastric bypass surgery Residual codes; unclassified (11 sources) Obstructive sleep apnea syndrome; Translations: [Obstructive sleep apnea (adult) (pediatric)] 09-24-2019 Chronic Spondylosis; intervertebral disc disorders; other back problems (20 sources) Chronic thoracic back pain; Translations: [Pain in thoracic spine] Onset: 07-30-2024 02-21-2020 Episodic Thyroid disorders (7 sources) Hypothyroidism; [...] conditions (not mental disorders or infectious disease) (15 sources) Electrocardiogram abnormal; Translations: [Abnormal electrocardiogram [ECG] [EKG]] Onset: 09-28-2024 03-18-2017 Episodic Unclassified (1 source) Morbid (severe) obesity due to excess calories; Translations: [Morbid (severe) obesity due to excess calories] Onset: 06-11-2017 Results Test Name Value Interpretation Reference Range Facility Fluor Guidance for Spine Inj on 01-18-2025 Fluor Guidance for Spine Inj [facility] Imaging Services [address] [place] [address] [id number] Fluor Guidance for Spine Inj MR#: [id number] Acct: [id number] Name: NICOLASA CASTILLO Rep #: [id number] : 1975 F 49 From: Alberto Weiner PCP: Dr. Florian Johns MD Status: [facility] Study: Fluor Guidance for Spine Inj Date of Exam: Exam# [id number] Ordering Dr: Matthew Moyer MD PROCEDURE: FLUOR GUIDANCE FOR SPINE INJ; OR-STEROID INJ/CER THOR/1ST L 01/18/2025 REASON FOR EXAM: CERVICAL EPIDURAL BLOCK TECHNIQUE: Procedure Code: RADSPN; RADORSTINJCT1 Modality: DX Procedure: FLUOR GUIDANCE FOR SPINE INJ; OR- STEROID INJ/CER THOR/1ST L Fluoroscopy time: 3.5 seconds. Dose: 0.69 mGy. COMPARISON: None. RAD/Fluor Guidance for Spine Inj IMPRESSION: Fluoroscopy was performed for cervical spine injection. 3 fluoroscopic images were also obtained. Reading Location: [id number] CC: Dr. Matthew Moyer MD; Dr. Florian Johns MD Cloth Desizing Range Operator Chief: Signed [facility] MR/POSTOP.ANEon 01-18-2025 MR/POSTOP.[facility] Medical Records Department [address] [place] [address] Anesthesia Postop Eval I 01/18/25 0805 MR#: [id number] Acct: [id number] Name: NICOLASA CASTILLO Rep #: [id number] : 1975 49 From: Rose Geiger CRNA PCP: Dr. Florian Johns MD Status:[facility] Y Race: C Location: [place] [address] Anesthesia: Postop Eval I Current Vital Signs Temperature: 98.2 F Pulse Rate: 72 Blood Pressure: 110/75 Respiratory Rate: 20 Pulse Ox: 98 Assessment Airway patent: Yes Spontaneous unlabored respirations: Yes nausea: No Vomiting: No Anesthesia Complication: No Fluid Hydration Crystalloid volume administer (ml): 200 Total IV fluid infused: 200 Progress Note Anesthesia document: Postop Eval 1 completed: Yes 01/18/25806 Date Rose Geiger [employer] Cosigner Signature: Date CC: Signed [facility] MR/[id number] 01-18-2025 MR/POSTOPAN2 [facility] Medical Records Department [address] [place] [address] Anesthesia Postop Eval II 01/18/25 1237 MR#: [id number] Acct: [id number] Name: NICOLASA CASTILLO Rep #: [id number] : 1975 49 From: Jan Daniel MD PCP: Dr. Florian Johns MD Status:[facility] Y Race: C Location: [facility] Anesthesia Postop Eval I Sum Postop Eval Completion status Anesthesia document: Postop Eval 1 completed: Yes Anesthesia Postop Eval I Summary Anesthesia Postop Eval I Summary: Anesthesia Postop Eval I: Assessment Summary Airway patent Yes 01/18/25 08:06 [employer].CSIR Spontaneous unlabored Yes 01/18/25 08:06 [employer].CSIR respirations Mental status nausea No 01/18/25 08:06 [employer]CSIR Vomiting No 01/18/25 08:06 [employer]CSIR Anesthesia Postop Eval I: Fluid Summary Crystalloid volume administer 200 01/18/25 08:06 [employer].CSIR (ml) Colloids volume administered ( ml) Blood Product volume administered (ml) Total IV fluid infused 200 01/18/25 08:06 [employer]CSIR Anesthesia Postop Eval I: Summary Notes Anesthesia Complication No 01/18/25 08:06 [employer]CSIR Anesthesia Complication Comment: Post-operative progress note Anesthesia: Postop Eval II Evaluation Mental status: Awake Pain Level: 3 nausea: No Vomiting: No 01/18/25 1237 Date Jan Daniel MD Cosigner Signature: Date CC: Signed Normal [facility] OR-Steroid Inj/Cer Thor/1st Binu 01-18-2025 OR-Steroid Inj/Cer Thor/1st L [facility] Imaging Services [address] [place] [address] [id number] OR-Steroid Inj/Cer Thor/1st L MR#: [id number] Acct: [id number] Name: NICOLASA CASTILLO Rep #: [id number] : 1975 F 49 From: Alberto Weiner PCP: Dr. Florian Johns MD Status: [facility] Study: OR-Steroid Inj/Cer Thor/1st L Date of Exam: Exam# [id number] Ordering Dr: Matthew Moyer MD PROCEDURE: FLUOR GUIDANCE FOR SPINE INJ; OR-STEROID INJ/CER THOR/1ST L 01/18/2025 REASON FOR EXAM: CERVICAL EPIDURAL BLOCK TECHNIQUE: Procedure Code: RADSPN; RADORSTINJCT1 Modality: DX Procedure: FLUOR GUIDANCE FOR SPINE INJ; OR- STEROID INJ/CER THOR/1ST L Fluoroscopy time: 3.5 seconds. Dose: 0.69 mGy. COMPARISON: None. RAD/OR-Steroid Inj/Cer Thor/1st L IMPRESSION: Fluoroscopy was performed for cervical spine injection. 3 fluoroscopic images were also obtained. Reading Location: [id number] CC: Dr. Matthew Moyer MD; Dr. Florian Johns MD Cloth Desizing Range Operator Chief: Signed Normal [facility] Operative Reporton 5 Operative Report [facility] Medical Records Department [address] [place] [address] Operative Report 01/18/25 0808 MR#: [id number] Acct: [id number] Name: NICOLASA CASTILLO Rep #: [id number] : 1975 49 From: Matthew Moyer MD PCP: Dr. Florian Johns MD Status:[facility] Location: [place] [address] Operative Report (Standard) Operative Information Date of Procedure: 01/18/25 Pre-Operative Diagnosis: Cervical radiculopathy, cervical spinal stenosis, cervical degenerative disc disease Post-Operative Diagnosis: Cervical radiculopathy, cervical spinal stenosis, cervical degenerative disc disease Surgery/Procedure Performed: Cervical epidural steroid injection interlaminar at C7-T1 under fluoroscopic guidance knifeman: No Type of Anesthesia: Local MAC RN Documented Start/Stop Times: Operation Date: 01/18/25 08:00 Case Time Into Pre-Op 01/18/25 06:32 Anesthesia Start 01/18/25 07:51 Into Room 01/18/25 07:51 Procedure Start 01/18/25 08:00 Procedure End 01/18/25 08:04 Procedure Start Time: 08:09 Procedure Stop Time: 08:09 Select all DRAINS/GRAFTS/IMPLANTS that apply: None Estimated Blood Loss: 0 Specimen collected: No Description of surgery: ANESTHESIA: Local. BLOOD LOSS: Minimal. COMPLICATIONS: None. DESCRIPTION OF PROCEDURE: History and physical of today was reviewed. Risks and benefits of the procedure were explained. The patient understood and agreed to proceed. Informed consent was obtained. IV inserted per routine protocol. The patient was taken to the operating room and placed in the prone position with a pillow positioned underneath the chest. The neck area was prepped and draped in a sterile fashion using iodine x3. Under fluoroscopy guidance on an AP view, the C7-T1 interlaminar space was identified. The skin and subcutaneous tissue was anesthetized with approximately 3 mL of 1% lidocaine using a 25-gauge regular needle. Under direct visualization on fluoroscopy, on AP view, using a 20-gauge 2-1/2-inch Tuohy needle, the needle was advanced via the skin. The tip of the needle was maneuvered and directed towards the interlaminar space at C7-T1. Loss of resistance technique was carried to air. Loss of resistance technique was encountered. Once encountered, after negative aspiration for blood and CSF, a total of 1 mL of contrast was injected to confirm correct placement of the needle as well as cephalocaudal spread of the contrast. Confirmation was obtained on AP as well as lateral view. After repeated negative aspiration and confirmation, a total of 3 mL of preservative-free normal saline and 80 mg of Depo-Medrol was injected easily. The needle was then removed intact. The patient experienced no sign or symptoms of intrathecal or intravascular injection. The patient experienced no paresthesia. The procedure was completed without any apparent difficulty or any complications. The patient appeared to tolerate it well. ASSESSMENT AND PLAN: This is a 49-year-old female with cervical radiculopathy, cervical spinal stenosis, cervical degenerative disc disease, status post cervical epidural steroid injection interlaminar C7-T1 under fluoroscopic guidance, patient will continue her current medications, patient will follow-up in approximately 2 weeks for reevaluation. Surgical Findings: 0 Complications Complications: No Admit VTE Documentation VTE Present on Admission: No VTE Mechan Device Prophylaxis: None VTE Pharm Prophylaxis ordered?: No 01/18/25 0811 Cosigner Signature (if applicable): CC: Dr. Matthew Moyer MD; Dr. Florian Johns MD Signed [facility] CNOVon 01-04-2025 CNOV Office Visit (OBGYWM ) NICOLASA CASTILLO ([id number]) 1975 F Date Time Provider Department 01/04/25 3:50 PM YASMIN KEE OBGYWM During your visit today, we recorded the following information about you: Blood pressure Weight Height 122/74 87.1 kg 1.72 m Yasmin Kee MD 01/04/2025 4:24 PM Signed Orthopedic Shoe Fitter offered: Patient declines. Nicolasa is a 49 [...] Living0 SAB0 IAB0 Ectopic0 Multiple0 Live Births0 Rn School History LMP: 07/27/2014, IUD Age at Menarche: 14 Age at First : Age at Menopause: Rn School History Comments: Sexual Activity: Yes; Male; Rose replaced 07/03/24 by DM at [facility] Contraception: I.U.D. PAST MEDICAL HISTORY Diagnosis Date Diabetes (HCC) Dysmetabolic syndrome Gout Hypercholesteremia Hypertension Hypothyroidism PAST SURGICAL HISTORY Procedure Laterality Date ASPIRATIONAND/INJECTIO N GANGLION CYST ANY LOCATJ Right 04/2023 removal cyst INSERTION OF IUD 07/03/2024 Rose PEREIRA 03/23/2013 Removed 07/03/24 by DM at [facility] OFFICE LEEP 02/13/2013 Negative PAST SURGICAL HISTORY OF 05/2017 gastric bi pass- [facility] REDUCTION OF LARGE BREAST Bilateral 2020 SALPINGECTOMY [...] discussed with the Patient or Patient's Authorized Gymnasium Teacher. As applicable, any other physician, advance practice provider, medical student, or other health professional student that will be observing or involved in the sensitive examination for educational or training purposes was discussed with the Patient or Authorized Gymnasium Teacher. The Patient or Authorized Gymnasium Teacher has agreed to proceed with the sensitive examination. (Sensitive examination includes inspection and/or palpation of the breasts, pelvis, prostate and anorectal regions). EXAM: BP 122/74 Ht 5' 7.717" (1.72m) Wt 192 lb (87.1kg) LMP 07/27/2014 [...] external genitalia normal, normal Bartholin's glands, urethra, [place]'s glands, no vulvar lesions, no cervical lesions, [...] Other V (more content not included)... Normal [facility] Breast imaging reportOrdered By: Sherin Mas on 09-22-2024 Study report [facility] Imaging Services [address] [place] [address] SCRN MAMM (CAD)W/MARISOL BILAT MR#: [id number] Acct: [id number] Name: NICOLASA CASTILLO Rep #: [id number] : 1975 F 49 From: Nii Martinez MD PCP: Dr. Florian Johns MD Status: PRE C Study:SCRN MAMM (CAD)W/MARISOL BILAT Date of Exa m: 09/22/24 Exam# [id number] Ordering Dr: Yasmin Holden MD EXAM: SCRN [...] be mailed to the patient. Reading Location: [id number] CC: Dr Yasmin Crouch MD; Dr. Florian Johns MD ~ Cloth Desizing Range Operator Chief: Signed [facility] SCRN MAMM (CAD)W/MARISOL BILATo n 09-22-2024 SCRN MAMM (CAD)W/MARISOL BILAT [facility] Imaging Services [address] [place], [place] [id number] SCRN MAMM (CAD)W/MARISOL BILAT MR#: [id number] Acct: [id number] Name: NICOLASA CASTILLO Rep #: [id number] : 1975 F 49 From: Sherin Cardenas i, MD PCP: Dr. Florian Johns MD Status: PRE CLI Study: SCRN MAMM (CAD)W/MARISOL BILAT Date of Exam: 08/31 07/24 Exam# [id number] Ordering Dr: Chauhan MD EXAM: SCRN MAMM [...] be mailed to the patient. Reading Location: [id number] CC: Dr Yasmin Crouch MD; Dr. Florian Johns MD Cloth Desizing Range Operator Chief: Signed Normal [facility] Cerv Spine Obl/Flex/Ext Comp on 07-27-2024 Cerv Spine Obl/Flex/Ext Comp [facility] Imaging Services [address] [place] [address] Cerv Spine Obl/Flex/Ext Comp MR#: [id number] Acct: [id number] Name: NICOLASA CASTILLO Rep #: [id number] : 1975 F 49 From: Chin Power MD PCP: Dr. Florian Johns MD Status: REG CLI Study: Cerv Spine Obl/Flex/Ext Comp Date of Exam: Exam# [id number] Ordering Dr: Matthew Moyer MD PROCEDURE: CERV [...] IMPRESSION: NEGATIVE CERVICAL SPINE. Disclaimer: Reading Location: [facility] CC: Dr. Matthew Moyer MD; Dr. Florian Johns MD Cloth Desizing Range Operator Chief: Signed [facility] 07-09-2024 [facility] Telephone (OBGYWM) NICOLASA CASTILLO ([id number]) 1975 F Date Time Provider Department 07/09/24 YASMIN KEE OBGYWIrlanda During your visit today, we recorded the following information about you: Yasmin Kee MD 07/09/2024 2:48 PM Signed Please notify patient that pathology was benign from lap bilateral salpingectomy. She did have small cyst on one of her tubes that was c/w serous cystadenoma that I removed- nothing further. How is she feeling? No need for post op unless concerns. Jenn Reynolds RN 07/09/2024 3:05 PM Signed Pt notified [...] Status:Closed by JENN REYNOLDS on 07/09/24 Normal [facility] Anion gap in Serum or Plasma Ordered By: Yasmin Crouch on 07-03-2024 Anion gap [Moles/Vol] 12 mmol/L 5-15 [facility] BUN/creatinine ratioOrdered By: Yasmin Crouch on 07-03-2024 Urea nitrogen/Creatinine [Mass ratio] 31.6 mg/mg High 10-20 [facility] Basic Metabolic Profile (BMP )on 07-03-2024 BUN/CRE 31.6 RATIO High - [facility] Comment on above: Performed By: #### L 501.9520, L500.2500, L400.7600 #### [facility] Laboratory [address] [place], [address] Calcium [Mass/Vol] 9.2 mg/dL Normal 7.6-11.0 [facility] Comment on above: Performed By: #### L 501.9520, L500.2500, L400.7600 #### [facility] [address] [place], [address] Chloride [Moles/Vol] 108 mmol/L Normal 98-108 [facility] Comment on above: Performed By: #### L 501.9520, L500.2500, L400.7600 #### [facility] [address] [place], [address] CO2 [Moles/Vol] 22.5 mmol/L Normal 21.0-32.0 [facility] Comment on above: Performed By: #### L 501.9520, L500.2500, L400.7600 #### [facility] [address] [place], [address] Creatinine [Mass/Vol] 0.66 mg/dL Low 0.70-1.20 [facility] Comment on above: Performed By: #### L 501.9520, L500.2500, L400.7600 #### [facility] [address] [place], [address] ECRCL 119.64 ml/min Normal 50-250 [facility] Comment on above: Performed By: #### L 501.9520, L500.2500, L400.7600 #### [facility] [address] [place], [address] GAP 12 Normal 5-15 [facility] Comment on above: Performed By: #### L 501.9520, L500.2500, L400.7600 #### [facility] [address] [place], [address] GFR/1.73 sq M.predicted among non-blacks MDRD (S/P/Bld) [Vol rate/Area] 108 mL/min/{1.73_m2} Normal >60 [facility] Comment on above: Result Comment: mL/m in/1.73m2 CKD-EPI Creatinine Equation (2020) Performed By: #### L 501.9520, L500.2500, L400.7600 #### [facility] [address] [place], [address] Glucose [Mass/Vol] 94 mg/dL Normal 70-99 [facility] Comment on above: Performed By: #### L 501.9520, L500.2500, L400.7600 #### [facility] [address] [place], [address] Potassium [Moles/Vol] 3.9 mmol/L Normal 3.3-5.1 [facility] Comment on above: Performed By: #### L 501.9520, L500.2500, L400.7600 #### [facility] [address] [place], [address] Sodium [Moles/Vol] 142 mmol/L Normal 133-145 [facility] Comment on above: Performed By: #### L 501.9520, L500.2500, L400.7600 #### [facility] [address] [place], [address] Urea nitrogen [Mass/Vol] 21 mg/dL High 4-19 [facility] Comment on above: Performed By: #### L 501.9520, L500.2500, L400.7600 #### [facility] [address] [place], [address] CBC-Complete Blood Cnt No Di ffon 07-03-2024 Erythrocyte distribution width (RBC) [Ratio] 13.4 % Normal 11.6-14.6 [facility] Comment on above: Performed By: #### L 100.0500 #### [facility] [address] [place], [address] Hematocrit (Bld) [Volume fraction] 33.4 % Low 37-47 [facility] Comment on above: Performed By: #### L 100.0500 #### [facility] [address] [place], [address] Hemoglobin (Bld) [Mass/Vol] 11.0 g/dL Low 12.0-15.0 [facility] Comment on above: Performed By: #### L 100.0500 #### [facility] [address] [place], [address] MCH (RBC) [Entitic mass] 29.3 pg Normal 27.0-32.0 [facility] Comment on above: Performed By: #### L 100.0500 #### [facility] [address] [place], [address] MCHC (RBC) [Mass/Vol] 32.9 g/dL Normal 32-36 [facility] Comment on above: Performed By: #### L 100.0500 #### [facility] [address] [place], [address] MCV (RBC) [Entitic vol] 88.8 fL Normal 81-99 [facility] Comment on above: Performed By: #### L 100.0500 #### [facility] [address] [place], [address] Platelet mean volume (Bld) [Entitic vol] 10.1 fL Normal 6.2-12.0 [facility] Comment on above: Performed By: #### L 100.0500 #### [facility] [address] [place], [address] Platelets (Bld) [#/Vol] 246 10*3/uL Normal 150-450 [facility] Comment on above: Performed By: #### L 100.0500 #### [facility] [address] [place], [address] RBC (Bld) [#/Vol] 3.76 10*6/uL Low 4.2-5.4 [facility] Comment on above: Performed By: #### L 100.0500 #### [facility] [address] [place], [address] RDW SD 43.8 fl Normal 35.1-43.9 [facility] Comment on above: Performed By: #### L 100.0500 #### [facility] [address] [place], [address] WBC (Bld) [#/Vol] 3.9 10*3/uL Low 4.4-11.0 [facility] Comment on above: Performed By: #### L 100.0500 #### [facility] [address] [place], [address] Carbon dioxide, total [Moles /volume] in Central venous bloodOrdered By: Yasmin Crouch on 07-03-2024 CO2 [Moles/Vol] 22.5 mmol/L 21.0-32.0 [facility] Chloride assayOrdered By: Monte on 07-03-2024 Chloride [Moles/Vol] 108 mmol/L 98-108 [facility] Discharge Instructionon Discharge Instruction [facility] Medical Records Department [address] [place] [address] Instructions for Home/Discharge Instructions 07/03/24 0823 MR#: [id number] Acct: [id number] Name: NICOLASA CASTILLO Rep #: [id number] : 1975 49 From: Yasmin Crouch MD PCP: Dr. Florian Johns MD Status:REG [facility] Discharge Instructions Diet Discharge Diet: No restrictions [...] if you need an appointment please call [phone] Test Results: Test results from this visit will be discussed in further detail at your follow-up appointment, if applicable. Discharge Plan Admission Attending Provider: Laura Crouch Primary Care Provider: Florian Johns Instructions Print Language: Moroccan Discharge Orders/Prescriptions Prescriptions: No Action levothyroxine 88 [...] CC: Dr. Florian Johns MD Signed Normal [facility] Erythrocyte distribution wid th (RBC) [Ratio]Ordered By: Yasmin Crouch on 07-03-2024 Erythrocyte distribution width (RBC) [Entitic vol] 43.8 fL 35.1-43.9 [facility] Erythrocyte distribution wid th ratioOrdered By: Yasmin Crouch on 07-03-2024 Erythrocyte distribution width (RBC) [Ratio] 13.4 % 11.6-14.6 [facility] Erythrocyte distribution wid th standard deviationOrdered By: Yasmin Jackson on 07-03-2024 Erythrocyte distribution width (RBC) [Ratio] 43.8 fl 35.1-43.9 [facility] Estimation of creatinine amanda aranceOrdered By: Yasmin Crouch on 07-03-2024 Estimated Creatinine Clearance Calc 119.64 ml/min 50-250 [facility] GFR/1.73 sq M.predicted ernie g non-blacks MDRD (S/P/Bld) [Vol rate/Area]Ordered By: Yasmin Crouch on 07-03-2024 Estimated GFR (MDRD) Non-Af Amer 108 >60 [facility] Comment on above: mL/min/1.73m2 CKD-EP I Creatinine Equation (2020) Glomerular filtration rate ( GFR) estimation/1.73 sq m using serum, plasma, or whole bOrdered By: Yasmin Crouch on 07-03-2024 GFR/1.73 sq M.predicted among non-blacks MDRD (S/P/Bld) [Vol rate/Area] 108 mL/min/{1.73_m2} >60 [facility] Comment on above: mL/min/1.73m2 CKD-EP I Creatinine Equation (2020) Hematocrit Auto (Bld) [Volum e fraction]Ordered By: Yasmin Crouch 07-03-2024 Hematocrit (Bld) [Volume fraction] 33.4 % Low 37-47 [facility] Hemoglobin measurementOrdere d By: Yasmin Crouch on 07-03-2024 Hemoglobin (Bld) [Mass/Vol] 11.0 g/dL Low 12.0-15.0 [facility] MCV (mean corpuscular volume ) determinationOrdered By: Yasmin rCouch on 07-03-2024 MCV (RBC) [Entitic vol] 88.8 fL 81-99 [facility] MR/POSTOP.ANEon 07-03-2024 MR/POSTOP.ANE [facility] Medical Records Department [address] [place] [address] Anesthesia Postop Eval I 07/03/24 0931 MR#: [id number] Acct: [id number] Name: NICOLASA CASTILLO Rep #: [id number] : 1975 49 From: Tamela Desai CRNA PCP: Dr. Florian Johns MD Status:REG SDC Y Race: C Location: [place] [address] Anesthesia: Postop Eval I Current Vital Signs [...] Postop Eval 1 completed: Yes 07/03/24 0933 Date Tamela Desai [employer] Cosigner Signature: Date CC: Signed Normal [facility] MR/[id number] 07-03-2024 MR/POSTOPAN2 [facility] Medical Records Department [address] [place] [address] Anesthesia Postop Eval II 07/03/24 1050 MR#: [id number] Acct: [id number] Name: NICOLASA CASTILLO Rep #: [id number] : 1975 49 From: Rose Geiger PCP: Dr. Florian Johns MD Status:REG SDC Y Race: C Location: [place] [address] Anesthesia Postop Eval I Sum Postop Eval Completion status Anesthesia document: Postop Eval 1 completed: Yes Anesthesia Postop Eval I Summary Anesthesia Postop Eval I Summary: Anesthesia Postop Eval I: Assessment Summary Airway patent Yes 07/03/24 09:33 [employer]LMIL Spontaneous unlabored Yes 07/03/24 09:33 [employer]LM[employer] respirations Mental status Awake 07/03/24 09:33 [employer]LM[employer] nausea No 07/03/24 09:33 [employer]LM[employer] Vomiting No 07/03/24 09:33 [employer]LM[employer] Anesthesia Postop Eval I: Fluid Summary Crystalloid volume administer 1,000 07/03/24 09:33 [employer]LMIL (ml) Colloids volume administered ( ml) Blood Product volume administered (ml) Total IV fluid infused 1,000 07/03/24 09:33 [employer]LMIL Anesthesia Postop Eval I: Summary Notes Anesthesia Complication No 07/03/24 09:33 [employer]LMIL Anesthesia Complication Comment: Post-operative progress note Anesthesia: Postop Eval II Evaluation Mental status: Awake Pain Level: 2 nausea: No Vomiting: No 07/03/24 1050 Date Rose De Santiago Signature: Date CC: Signed Normal [facility] Mean corpuscular hemoglobin (MCH) determinationOrdered By: Yasmin Jackson on 07-03-2024 MCH (RBC) [Entitic mass] 29.3 pg 27.0-32.0 [facility] Mean corpuscular hemoglobin concentration (MCHC) determinationOrdered By: Yasmin Crouch on 07-03-2024 MCHC (RBC) [Mass/Vol] 32.9 g/dL 32-36 [facility] Mean platelet volume determi nationOrdered By: Yasmin Crouch on 07-03-2024 Platelet mean volume (Bld) [Entitic vol] 10.1 fL 6.2-12.0 [facility] Operative Reporton 5 Operative Report [facility] Medical Records Department [address] [place] [address] Operative Report 07/03/24 0913 MR#: [id number] Acct: [id number] Name: NICOLASA CASTILLO Rep #: [id number] : 1975 49 From: Yasmin Crouch MD PCP: Dr. Florian Johns MD Status:REG [facility] Location: [place] [address] Operative Report (Standard) Operative Information Date of Procedure: 07/03/24 Pre-Operative Diagnosis: desires sterilization, dysmenorrhea, heavy menses Post-Operative Diagnosis: same, Omental adhesions Surgery/Procedure Performed: IUD removal, IUD- liletta insertion, laparoscopic bilateral salpingectomy, Lysis of adhesions knifeman: No Type of Anesthesia: General and Local [...] anesthesia. She was then placed in [facility] and she was prepped and draped in [...] MD; Dr. Florian Johns MD Signed Normal [facility] Platelet countOrdered By: Monte on 07-03-2024 Platelets (Bld) [#/Vol] 246 10*3/uL 150-450 [facility] Potassium (Unsp spec) [Mass/ Vol]Ordered By: Yasmin Crouch on 07-03-2024 Potassium [Moles/Vol] 3.9 mmol/L 3.3-5.1 [facility] Potassium measurement (mass/ volume)Ordered By: Yasmin Crouch on 07-03-2024 Potassium (Unsp spec) [Mass/Vol] 3.9 mmol/L 3.3-5.1 [facility] ,Urineon 07-03-2024 Beta HCG ( test) Ql (U) Negative Normal [facility] Comment on above: Result Comment: Very dilute urine specimens, as indicated by a low specific gravity, may not contain sales representative graphic art levels of hCG. If is still suspected, a first morning urine specimen should be collected 48 hours later and tested. Performed By: #### L 501.9520, L500.2500, L400.7600 #### [facility] Laboratory [address] [place], [address] RBC Auto (Bld) [#/Vol]Ordere d By: Yasmin Crouch on 07-03-2024 RBC (Bld) [#/Vol] 3.76 10*6/uL Low 4.2-5.4 [facility] Serum creatinine measurement (mass/volume)Ordered By: Yasmin Crouch on 07-03-2024 Creatinine [Mass/Vol] 0.66 mg/dL Low 0.70-1.20 [facility] Serum glucose measurement (m ass/volume)Ordered By: Yasmin Crouch on 07-03-2024 Glucose [Mass/Vol] 94 mg/dL 70-99 [facility] Serum or plasma calcium aby urement (mass/volume)Ordered By: Yasmin Jackson on 07-03-2024 Calcium [Mass/Vol] 9.2 mg/dL 7.6-11.0 [facility] Serum or plasma urea nitroge n measurement (mass/volume)Ordered By: Yasmin Crouch on 07-03-2024 Urea nitrogen [Mass/Vol] 21 mg/dL High 4-19 [facility] Sodium levelOrdered By: Saurav Crouch on 07-03-2024 Sodium [Moles/Vol] 142 mmol/L 133-145 [facility] Surgery Specimen Level IIon 07-03-2024 Surgery Specimen Level II ---- Patient Age/Sex Location Account Attending Physician ---- NICOLASA CASTILLO 49/F [facility] [id number] Dr Yasmin Crouch, ---- Specimen: [id number] Received: 07/03/24 Status: [place] Reed Num: [id number] Spec Type: FALL TUBES Subm Dr: Dr Yasmin Crouch MD HEADER OPERATION: Laparoscopic, salpingectomy, lysis of [...] name, date of , and bilateral fallopian tubes" are 2 unoriented and fimbriated fallopian tube [...] with a smooth and glistening inner lining. Gymnasium Teacher sections are submitted as follows:A1. First fallopian tube and fimbriated end with cystic structureA2. Second fallopian tube with fimbriated end [facility] 07-03-2024 CPT:19617 ---- Patient Age/Sex Location Account Attending Physician ---- NICOLASA CASTILLO 49/F [facility] [id number] Dr Yasmin Pandaosh, ---- Signed (signature on file) Dr. Juany King MD 07/08/24 1707 ---- Normal [facility] Comment on above: Performed By: #### P SUII #### [facility] Laboratory [address] [facility] [place], [address] TSH DL <= 0.005 mIU/L QnOrde red By: Jan Daniel on 07-03-2024 Thyroid Stimulating Hormone (TSH) 2.140 uIU/mL 0.300-4.200 [facility] TSH Qn 2.140 uIU/mL 0.300-4.200 [facility] Thyroid Stim Hormone (TSH)on 07-03-2024 TSH 2.140 uIU/mL Normal 0.300-4.200 [facility] Comment on above: Performed By: #### L 501.7720, L500.2500, L400.8430 #### [facility] [address] [facility] [place] [place], [address] Urine testOrdered By: Jan Daniel on 07-03-2024 HCG ( test) Ql (U) Negative [facility] Comment on above: Very dilute urine sp ecimens, as indicated by a low specificgravity, may not contain sales representative graphic art levels of hCG. If is still suspected, a first morning urinespecimen should be collected 48 hours later and tested. White blood cell (WBC) count Ordered By: Yasmin Crouch on 07-03-2024 WBC (Bld) [#/Vol] 3.9 10*3/uL Low 4.4-11.0 [facility] H AND P Exam - OB/GYNon H&P Exam - FIBER LOCKING SUPERVISOR [facility] Medical Records Department [address] [place] [address] H P Exam - FIBER LOCKING SUPERVISOR 07/02/24 1331 MR#: [id number] Acct: [id number] Name: NICOLASA CASTILLO Rep #: [id number] : 1975 49 From: Yasmin Crouch MD PCP: Dr. Florian Johns MD Status:[employer] Location: [place] [address] History and Physical Date of Admission: 07/03/24 [...] Negative ??? PAST SURGICAL HISTORY OF 05/2017 [facility] [employer] ??? REDUCTION OF LARGE BREAST Bilateral 2019 [...] Blood pressure 134/72, height 170.2 cm (5' 7"), weight 89.8 kg (198 lb), last menstrual [...] on 06/09/2024 Note shared with patient 07/02/24 6327 Cosigner Signature (if applicable): CC: Dr Yasmin [...] Dr. Florian Johns MD * Signed Normal [facility] MR/PAT.GRISELon 06-10-2024 MR/PAT.ANE [facility] Medical Records Department [address] [place] [address] PAT - Anesthesia 06/10/24 1114 MR#: [id number] Acct: [id number] Name: NICOLASA CASTILLO Rep #: [id number] : 1975 49 From: Jan Daniel MD PCP: Dr. Florian Johns MD Status:PRE [facility] Y Race: C Location: [facility] Pre-Assessment Diagnosis/Proposed Procedure Planned Operative Procedure(s): LAP SALPINGECTOMY BILAT,REMOVAL MIRENA IUD INSERTION OF LILETTA IUD Anesthesia History Anesthesia History - process safety engineer: Anesthesia History - process safety engineer Hx Hospitalization No 06/10/24 08:11 Any Problems [...] take am of surgery PONV PONV - process safety engineer: PONV - process safety engineer Female Yes 06/10/24 08:11 HX of Motion [...] 04/18/23 13:55 Respiratory Assessment Respiratory Assessment - process safety engineer: Respiratory Tract Infection Hx - process safety engineer Hx Respiratory Tract Infection No 06/10/24 08:11 STOP Sleep Apnea STOP Sleep Apnea - process safety engineer: STOP Sleep Apnea - process safety engineer Hx Hypertension Yes: NO MEDS SINCE 201706/10/24 [...] Tobacco Use History Tobacco Use History - process safety engineer: Tobacco Use History - process safety engineer Tobacco Use Smoking Status Never smoker 06/10/24 08:11 Hx Tobacco Use No 06/10/24 08:11 Years Smoking Packs Smoked per Day Smoking Cessation Date was within the last 15 years Hx Smoking Cessation Date Hx Smoking Cessation Counseling Hematologic Medial History Hematologic Hx - process safety engineer: Hematologic 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 Normal [facility] CNOVon 06-09-2024 CNOV Office Visit (OBGYWM ) NICOLASA CASTILLO ([id number]) 1975 F Date Time Provider Department 06/09/24 [...] PAST SURGICAL HISTORY OF 05/2017 [facility] REDUCTION OF LARGE BREAST Bilateral 2020 VAGINOSCOPY [...] Blood pressure 134/72, height 170.2 cm (5' 7"), weight 89.8 kg (198 lb), last menstrual [...] Status:Closed by YASMIN JACKSON on 06/09/24 [facility] HISTORY PHYSICALon HISTORY PHYSICAL HNO ID: [id number] Author: YASMIN KEE MD Service: ? Author [...] PAST SURGICAL HISTORY OF 05/2017 [facility] REDUCTION OF LARGE BREAST Bilateral 2020 VAGINOSCOPY [...] Blood pressure 134/72, height 170.2 cm (5' 7"), weight 89.8 kg (198 lb), last menstrual [...] history, medications and allergies Yasmin Jackson MD [facility] CNOVon 04-21-2024 CNOV Office Visit (OBGYWM ) NICOLASA CASTILLO ([id number]) 1975 F Date Time Provider Department 04/21/24 [...] L0 SAB0 IAB0 Ectopic0 Multiple0 Live Births0 Rn School History LMP: 07/27/2014, IUD Age at Menarche: Age at First : Age at Menopause: Rn School History Comments: Sexual Activity: Yes; Male Contraception: I.U.D. PAST MEDICAL HISTORY Diagnosis Date Diabetes (HCC) Dysmetabolic syndrome Gout Hypercholesteremia Hypertension Hypothyroidism PAST SURGICAL HISTORY Procedure Laterality Date ASPIRATIONAND/INJECTIO N GANGLION CYST ANY LOCATJ Right 04/2023 removal cyst MIRENA 03/23/2013 OFFICE LEEP 02/13/2013 Negative PAST SURGICAL HISTORY OF 05/2017 [facility] REDUCTION OF LARGE BREAST Bilateral 2020 [...] which included preparing to see the patient, [id number] patient care, completing clinical documentation, obtaining and/or reviewing separately obtained history, performing a medically appropriate examination, and counseling and educating the patient/family/[facility] er. Yasmin Crouch MD Allergies As of [...] Status:Closed by YASMIN JACKSON on 04/21/24 Normal [facility] Laboratory - Chemistry and C hemistry - challengeOrdered By: Jan Daniel on 04-18-2023 HCG ( test) Ql (U) Negative [facility] Comment on above: Very dilute urine sp ecimens, as indicated by a low specificgravity, may not contain sales representative graphic art levels of hCG. If is still suspected, a first morning urinespecimen should be collected 48 hours later and tested. Basophil percentageOrdered B y: Florian Johns on 02-22-2023 Chloride [Moles/Vol] 106 mmol/L 98-107 [facility] Cholesterol [Mass/Vol] 210 mg/dL <200 [facility] Comment on above: <200 mg/dL Desirable 200-240 mg/dL Borderline >240 mg/dL High Risk Glucose [Mass/Vol] 92 mg/dL 74-106 [facility] Potassium [Moles/Vol] 3.6 mmol/L 3.5-5.1 [facility] Sodium [Moles/Vol] 139 mmol/L 136-145 [facility] Triglyceride [Mass/Vol] 75 mg/dL <199 [facility] Comment on above: The drugs N-Acetylcy steine and Metamizole may falsely depress this assay.Serum Triglycerides Reference Interval Normal <150 mg/dL Borderline high 150 - 199 mg/dL High 200 - 499 mg/dL Very High > or = 500 mg/dL Laboratory - Chemistry and C hemistry - challengeOrdered By: Florian Johns on 02-22-2023 CO2 [Moles/Vol] 29.0 mmol/L 21.0-32.0 [facility] Free T4 [Mass/Vol] 0.92 ng/dL 0.76-1.46 [facility] Urea nitrogen/Creatinine [Mass ratio] 19.5 mg/mg 10-20 [facility] No Panel InformationOrdered By: Florian Johsn on 02-22-2023 Estimated GFR (MDRD) Amer 103 mL/min >60 [facility] Comment on above: GFR Calc Estimated GFR (MDRD) Non-Af Amer 85 mL/min >60 [facility] Comment on above: Non- GFR Calc Free Triiodothyronine (T3) pg/dL 2.3 pg/mL 2.18-3.98 [facility] Thyroid Stimulating Hormone (TSH) 1.32 uIU/mL 0.358-3.74 [facility] Serum or plasma calcium aby urement (mass/volume)Ordered By: Florian Johns on 02-22-2023 Calcium [Mass/Vol] 8.8 mg/dL 8.5-10.1 [facility] Serum or plasma cholesterol in HDL measurement (mass/volume)Ordered By: Florian Johns on 02-22-2023 Cholesterol in HDL [Mass/Vol] 94 mg/dL >40 [facility] Comment on above: The drugs N-Acetylcy steine and Metamizole may falsely depress this assay. Reference Range HDL <40 mg/dL Low HDL Cholesterol HDL >or= 60 mg/dL High HDL Cholesterol Serum or plasma cholesterol in VLDL measurement (mass/volume)Ordered By: Florian Johns on 02-22-2023 Cholesterol in VLDL [Mass/Vol] 15 mg/dL 5-40 [facility] Serum or plasma creatinine m easurement (mass/volume)Ordered By: Florian Johns on 02-22-2023 Creatinine [Mass/Vol] 0.77 mg/dL 0.55-1.02 [facility] Comment on above: The validity of the calculated GFR & GFRAA in patients over 70 years has not been determined. Clinical correlation is essential. Serum or plasma low density lipoprotein (LDL) cholesterol measurement (mass/volume)Ordered By: Florian Johns on 02-22-2023 Cholesterol in LDL [Mass/Vol] 101 mg/dL 0-130 [facility] Serum or plasma urea nitroge n measurement (mass/volume)Ordered By: Florian Johns on 02-22-2023 Urea nitrogen [Mass/Vol] 15 mg/dL 7-18 [facility] Thin prep Papanicolaou smear with manual screeningOrdered By: Florian Johns on 02-22-2023 Thin prep Papanicolaou smear with manual screening 4 5-15 [facility] Absolute lymphocyte countOrd ered By: Dr. Johns on 08-06-2022 Lymphocytes Auto (Unsp spec) [#/Vol] 1.04 10*3/uL 0.83-4.51 [facility] Basophil percentageOrdered B y: Dr. oJhns on 08-06-2022 Basophils/100 WBC (Bld) 1.2 % 0-1 [facility] Chloride [Moles/Vol] 106 mmol/L 98-107 [facility] Eosinophils/100 WBC (Bld) 1.8 % 0-5 [facility] Glucose [Mass/Vol] 89 mg/dL 74-106 [facility] Neutrophils (Bld) [#/Vol] 1.8 10*3/uL 2.0-7.7 [facility] Neutrophils/100 WBC (Bld) 53.1 % 47-70 [facility] Potassium [Moles/Vol] 3.8 mmol/L 3.5-5.1 [facility] Sodium [Moles/Vol] 141 mmol/L 136-145 [facility] WBC (Bld) [#/Vol] 3.3 10*3/uL 4.4-11.0 [facility] Blood erythrocytes count (nu mber/volume)Ordered By: Dr. Johns on 08-06-2022 RBC (Bld) [#/Vol] 4.03 10*6/uL 4.2-5.4 [facility] Blood hemoglobin measurement (mass/volume)Ordered By: Dr. Johns on 08-06-2022 Hemoglobin (Bld) [Mass/Vol] 12.5 g/dL 12.0-15.0 [facility] Blood lymphocytes/100 leukoc ytesOrdered By: Dr. Johns on 08-06-2022 Lymphocytes/100 WBC (Bld) 31.5 % 19-41 [facility] Blood monocytes/100 leukocyt esOrdered By: Dr. Johns on 08-06-2022 Monocytes/100 WBC (Bld) 12.4 % 0-10 [facility] Blood platelet mean volumeOr dered By: Dr. Johns on 08-06-2022 Platelet mean volume (Bld) [Entitic vol] 10.7 fL 6.2-12.0 [facility] Determination of erythrocyte mean corpuscular volume (MCV)Ordered By: Dr. Johns on 08-06-2022 MCV (RBC) [Entitic vol] 96.8 fL 81-99 [facility] Hematocrit Auto (Bld) [Volum e fraction]Ordered By: Dr. Johns on 08-06-2022 Hematocrit (Bld) [Volume fraction] 39.0 % 37-47 [facility] Laboratory - Chemistry and C hemistry - challengeOrdered By: Dr. Johns on 08-06-2022 CO2 [Moles/Vol] 29.0 mmol/L 21.0-32.0 [facility] Free T4 [Mass/Vol] 0.99 ng/dL 0.76-1.46 [facility] Urea nitrogen/Creatinine [Mass ratio] 23.1 mg/mg 10-20 [facility] Laboratory - Hematology and Cell countsOrdered By: Dr. Johns on 08-06-2022 Erythrocyte distribution width (RBC) [Entitic vol] 43.7 fL 35.1-43.9 [facility] Erythrocyte distribution width (RBC) [Ratio] 12.2 % 11.6-14.6 [facility] Immature granulocytes/100 WBC (Bld) 0.000 % 0.0-0.9 [facility] Comment on above: IG% - Immature Granu locytes (promyelocytes, myelocytes and metamyelocytes) > 1% indicates that a LEFT SHIFT is Present. MCH (RBC) [Entitic mass] 31.0 pg 27.0-32.0 [facility] Nucleated RBC/100 WBC (Bld) [Ratio] 0 % 0-5 [facility] [Mass/Vol]Or dered By: Dr. Johns on 08-06-2022 MCHC (RBC) [Mass/Vol] 32.1 g/dL 32-36 [facility] No Panel InformationOrdered By: Dr. Johns on 08-06-2022 Estimated GFR (MDRD) Amer 137 mL/min >60 [facility] Comment on above: GFR Calc Estimated GFR (MDRD) Non-Af Amer 113 mL/min >60 [facility] Comment on above: Non- GFR Calc Free Triiodothyronine (T3) pg/dL 2.2 pg/mL 2.18-3.98 [facility] Thyroid Stimulating Hormone (TSH) 1.83 uIU/mL 0.358-3.74 [facility] Platelets bldOrdered By: Dr. Johns on 08-06-2022 Platelets (Bld) [#/Vol] 265 10*3/uL 150-450 [facility] Serum or plasma calcium aby urement (mass/volume)Ordered By: Dr. Johns on 08-06-2022 Calcium [Mass/Vol] 9.0 mg/dL 8.5-10.1 [facility] Serum or plasma creatinine m easurement (mass/volume)Ordered By: Dr. Johns on 08-06-2022 Creatinine [Mass/Vol] 0.60 mg/dL 0.55-1.02 [facility] Comment on above: The validity of the calculated GFR & GFRAA in patients over 70 years has not been determined. Clinical correlation is essential. Serum or plasma urea nitroge n measurement (mass/volume)Ordered By: Dr. Johns on 08-06-2022 Urea nitrogen [Mass/Vol] 14 mg/dL 7-18 [facility] Thin prep Papanicolaou smear with manual screeningOrdered By: Dr. Johns on 08-06-2022 Thin prep Papanicolaou smear with manual screening 6 5-15 [facility] No Panel InformationOrdered By: Dr. Johns on 02-07-2022 Thyroid Stimulating Hormone (TSH) 1.20 uIU/mL 0.358-3.74 [facility] Laboratory - Chemistry and C hemistry - challengeon 08-29-2021 Free T4 [Mass/Vol] 1.12 ng/dL 0.76-1.46 [facility] Work Phone: [phone] No Panel Informationon 08-29 Free Triiodothyronine (T3) pg/dL 2.6 pg/mL 2.18-3.98 [facility] Work Phone: [phone] Thyroid Stimulating Hormone (TSH) 0.56 uIU/mL 0.358-3.74 [facility] Work Phone: Laboratory - Microbiology an d Antimicrobial susceptibilityon 08-04-2021 SARS-CoV-2 (COVID-19) RNA INCKO+probe Ql (Unsp spec) Detected Not Detect [facility] Work Phone: Comment on above: Normal Reference [...] Panel Informationon 08-04 Respiratory Panel (PCR) [facility] Work Phone: [phone] Basophil percentageon 2021 Testosterone [Mass/Vol] 4 ng/dL [facility] Work Phone: [phone] Free testosterone percentage on 05-23-2021 Testosterone Free/Testosterone.total [Mass fraction] 1.71 % [facility] Work Phone: Comment on above: Performed at: [address], [place] [id number] Director: Shyam Kaminski PhD, Phone: [phone] at: [address] [id number] Director: Patricia Washington MD, Phone: [phone] Serum or plasma testosterone free measurement (mass/volume)on 05-23-2021 Testosterone Free [Mass/Vol] 0.07 ng/dL [facility] Work Phone: Laboratory - Microbiology an d Antimicrobial susceptibilityon 05-17-2021 SARS-CoV-2 (COVID-19) RNA NICKO+probe Ql (Unsp spec) Not detected Not Detect [facility] Work Phone: Comment on above: Normal Reference Ran ge: Not DetectedMethod:(RT-PCR) real-time reverse transcriptase PCRLuminex misterbnb Instrument*The Food and Drug Administration (FDA) has issued an Emergency Use Authorization (EAU) for the misterbnb SARS-CoV-2 Assay for the rapid detection of [...] Glucose mass conc 109 mg/dL High 65-99 [facility] Comment on above: Performed By: #### P LT ####[facility] Laboratory[facility] [id number] [place] [address] Glucose mass conc 98 mg/dL Normal 65-99 [facility] Comment on above: Performed By: #### P LT ####[facility] [address] [place] [address] Glucose mass conc 99 mg/dL Normal 65-99 [facility] Comment on above: Performed By: #### P CGL ####[facility] [id number] [place] [address] POCT GLUCOSEon 06-12-2017 Glucose mass conc 95 mg/dL Normal 65-99 [facility] Comment on above: Performed By: #### P CGL ####[facility] [id number] [place] [address] Glucose mass conc 81 mg/dL Normal 65-99 [facility] Comment on above: Performed By: #### P CGL ####[facility] [id number] [place] [address] Glucose mass conc 111 mg/dL High 65-99 [facility] Comment on above: Performed By: #### P CGL ####[facility] [id number] [place] [address] Glucose mass conc 93 mg/dL Normal 65-99 [facility] Comment on above: Performed By: #### P CGL ####[facility] [address] [place] [address] Glucose mass conc 81 mg/dL Normal 65-99 [facility] Comment on above: Performed By: #### P CGL ####[facility] [id number] [place] [address] UGI W KUBon 06-12-2017 UGI W KUB *FINAL Da te of Service: 06/12/2017 08:32 Adm #: [id number] Dr:KITTY DEE Signoff Dr: KITTY DEEPROCEDURE: UGI [...] speech recognition. Original Interpreting Physician: KITTY DEE MDOriginleslye Transcribed by/Date: [facility] Jun 14 2017 10:58AOriginal Electronically Signed by/Date: KITTY DEE MD Jun 14 2017 10:58A Addendum Interpreting Physician: Addendum Transcribed by/Date: NO ADDENDUMAddendum Electronically Signed by/Date: Normal [facility] Consulton 06-11-2017 Consult Normal [facility] Discharge Summaryon 06-12-19 18 Discharge Summary Normal [facility] Operative Reporton 8 Operative Report Normal [facility] PLATELETon 06-11-2017 Platelets Normal 150-450 [facility] Comment on above: Result Comment: 280P erformed at [facility] [address] [place] [address] Performed By: #### P LT ####[facility] Laboratory[facility] [address] [place] [address] POCT GLUCOSEon 06-11-2017 Glucose mass conc 144 mg/dL High 65-99 [facility] Comment on above: Performed By: #### P CGL ####[facility] [place] [address] Glucose mass conc 145 mg/dL High 65-99 [facility] Comment on above: Performed By: #### P CGL ####[facility] [place] [address] Glucose mass conc 112 mg/dL High 65-99 [facility] Comment on above: Performed By: #### P CGL ####[facility] [place] [address] Vital Signs Date Time Vital Sign Value Performing Clinician Faci lity 01-18-2025 08:20-0400 Body temperature 97 [degF] Dr. Florian Johns MD Work Phone: [facility] 01-18-2025 08:20-0400 Diastolic blood pressure 79 mm[Hg] Dr. Florian Johns MD Work Phone: [facility] 01-18-2025 08:20-0400 Heart rate 57 /min Dr. Florian Johns MD Work Phone: [facility] 01-18-2025 08:20-0400 Respiratory rate 16 /min Dr. Florian Johns MD Work Phone: [facility] 01-18-2025 08:20-0400 SaO2% (BldA) [Mass fraction] 99 % Dr. Florian Johns MD Work Phone: [phone] [place] [address] 01-18-2025 08:20-0400 Systolic blood pressure 107 mm[Hg] Dr. Florian Johns MD Work Phone: [phone] [place] [address] 01-18-2025 06:43-0400 Body height 170.[address] Florian Johns MD Work Phone: [phone] [place] [address] 01-18-2025 06:43-0400 Body mass index (BMI) [Ratio] 30.5 kg/m2 Dr. Florian Johns MD Work Phone: [phone])859-073449 [place] [address] 01-18-2025 06:43-0400 Body weight 88.[address] Florian Johns MD Work Phone: [phone])065-066949 [place] [address] 07-03-2024 11:15-0400 Body temperature 98.3 [degF] Dr. Florian Johns MD Work Phone: [phone])406-217249 [place] [address] 07-03-2024 11:15-0400 Diastolic blood pressure 74 mm[Hg] Dr. Florian Johns MD Work Phone: [phone])[phone] [place] [address] 07-03-2024 11:15-0400 Heart rate 68 /min Dr. Florian Johns MD Work Phone: [phone])139-252449 [place] [address] 07-03-2024 11:15-0400 Respiratory rate 16 /min Dr. Florian Johns MD Work Phone: [phone] [place] [address] 07-03-2024 11:15-0400 SaO2% (BldA) [Mass fraction] 100 % Dr. Florian Johns MD Work Phone: [phone])050-347449 [place] [address] 07-03-2024 11:15-0400 Systolic blood pressure 120 mm[Hg] Dr. Florian Johns MD Work Phone: [phone])951-852904 [place] [address] 07-03-2024 07:11-0400 Body height 170.[address] Florian Johns MD Work Phone: [phone] [place] [address] 07-03-2024 07:11-0400 Body mass index (BMI) [Ratio] 30.8 kg/m2 Dr. Florian Johns MD Work Phone: [facility] 07-03-2024 07:11-0400 Body weight 89.[address] Florian Johns MD Work Phone: [facility] 06-09-2024 16:11-0400 Body height 170.2 cm Yasmin Jackson MD Work Phone: [facility] 06-09-2024 16:11-0400 Body mass index (BMI) [Ratio] 31.01 kg/m2 Yasmin Jackson MD Work Phone: [facility] 06-09-2024 16:11-0400 Body weight 89.81 kg Yasmin Jackson MD Work Phone: [facility] 06-09-2024 16:11-0400 Diastolic blood pressure 72 mm[Hg] Yasmin Jackson MD Work Phone: [facility] 06-09-2024 16:11-0400 Systolic blood pressure 134 mm[Hg] Yasmin Jackson MD Work Phone: [facility] 04-21-2024 15:19-0500 Body mass index (BMI) [Ratio] 30.09 kg/m2 Yasmin Jackson MD Work Phone: [facility] 04-21-2024 15:19-0500 Body weight 88 kg Yasmin Jackson MD Work Phone: [facility] 04-21-2024 15:19-0500 Diastolic blood pressure 80 mm[Hg] Yasmin Jackson MD Work Phone: [facility] 04-21-2024 15:19-0500 Systolic blood pressure 124 mm[Hg] Yasmin Jackson MD Work Phone: [facility] 04-18-2023 17:10-0500 Body temperature 97.7 [degF] [facility] 04-18-2023 17:10-0500 Diastolic blood pressure 73 mm[Hg] [facility] 04-18-2023 17:10-0500 Heart rate 59 /min [facility] 04-18-2023 17:10-0500 Respiratory rate 16 /min [facility] 04-18-2023 17:10-0500 SaO2% (BldA) [Mass fraction] 100 % [facility] 04-18-2023 17:10-0500 Systolic blood pressure 125 mm[Hg] [facility] 04-18-2023 13:55-0500 Body height 172.[address] [facility] 04-18-2023 13:55-0500 Body mass index (BMI) [Ratio] 27.3 kg/m2 [facility] 04-18-2023 13:55-0500 Body weight 81.[address] [facility] 06-18-2022 15:47-0400 Body height 172.7 cm Yasmin Jackson MD Work Phone: [facility] 06-18-2022 15:47-0400 Body weight 82.37 kg Yasmin Jackson MD Work Phone: [facility] 06-18-2022 15:47-0400 Diastolic blood pressure 74 mm[Hg] Yasmin Jackson MD Work Phone: [facility] 06-18-2022 15:47-0400 Systolic blood pressure 120 mm[Hg] Yasmin Jackson MD Work Phone: [facility] Encounters Encounter Date Encounter Type Care Provider Facility Start: 01-18-2025 End: 01-18-2025 Admission to same day surgery center Dr. Matthew Moyer MD -Surgical Day Care Start: 01-18-2025 End: 01-18-2025 ambulatory Matthew Moyer Facility:[facility] Start: 01-04-2025 End: 01-04-2025 ambulatory YASMIN JACKSON Facility:[facility] Start: 01-04-2025 Encounter for gynecological examination (general) (routine) without abnormal findings YASMIN JACKSON [facility] Start: 09-22-2024 End: 09-22-[address] Florian Johns MD Work Phone: -Outpatient Breast Imaging Start: 09-22-2024 End: 09-22-[address] Yasmin Crouch MD -Outpatient Breast Imaging Work Phone: Start: 09-22-2024 End: 09-22-2024 ambulatory Yasmin Crouch Facility:[facility] Start: 07-27-2024 End: 07-27-[address] Matthew Moyer MD -Radiology [facility] Work Phone: Start: 07-27-2024 End: 07-27-2024 ambulatory Matthew Moyer Facility:[facility] Start: 07-09-2024 End: 07-09-2024 Telephone encounter Yasmin Jackson MD Work Phone: OB/Gynecology Start: 07-03-2024 End: 07-03-2024 Admission to same day surgery center Dr Yasmin Crouch MD -Surgical Day Care Start: 07-03-2024 End: 07-03-[address] Florian Johns MD Work Phone: [facility] Work Phone: Start: 06-09-2024 End: 06-09-2024 ambulatory LUIS E WATSON Facility:[facility] Start: 06-09-2024 End: 06-09-2024 Patient encounter procedure Yasmin Jackson MD Work Phone: OB/Gynecology Comment on above: Sterilization consul t (Primary Dx); Abnormal uterine bleeding (AUB); Dysmenorrhea; Pre-op exam Start: 06-09-2024 End: 06-09-2024 Preprocedural examination done Yasmin Jackson MD Work Phone: [facility] Start: 06-03-2024 End: 06-03-2024 Admission to same day surgery center Yasmin Jackson MD Work Phone: OB/Gynecology Comment on above: surgery confirmation Start: 06-03-2024 End: 06-03-2024 E-mail encounter from caregiver Yasmin Jackson MD Work Phone: OB/Gynecology Start: 04-21-2024 End: 04-21-2024 ambulatory [facility] Facility:[facility] Start: 04-21-2024 End: 04-21-2024 Patient [...] 04-18-2023 Admission to same day surgery center [facility]-Surgical Day Care Start: 04-18-2023 End: 04-18-2023 ambulatory [facility] Work Phone: Start: 02-22-2023 End: 02-22-2023 ambulatory [facility] Work Phone: Start: 02-22-2023 End: 02-22-2023 Patient encounter procedure [facility]-Laboratory Work Phone: Start: 08-06-2022 End: 08-06-[address] Florian Johns Work Phone: [facility] Work Phone: Start: 08-06-2022 End: 08-06-[address] [facility] Start: 06-27-2022 End: 06-27-[address] Florian Johns Work Phone: [facility] Work Phone: Start: 06-27-2022 End: 06-27-[address] Florian Johns Work Phone: [facility]-Outpatient Breast Imaging Start: 06-18-2022 End: 06-18-2022 Patient encounter procedure Yasmin Jackson MD Work Phone: OB/Gynecology Comment on above: Encounter for gyneco logical examination (general) (routine) without abnormal findings (Primary Dx); Encounter for screening mammogram for breast cancer Start: 06-18-2022 End: 06-18-2022 Patient encounter status Yasmin Jackson MD Work Phone: OB/Gynecology Start: 04-16-2022 Non-patient / Non-visit Dr. Orlin Johns Work Phone: [facility] Start: 04-16-2022 End: 04-16-[address] Florian Johns Work Phone: [facility] Work Phone: Start: 04-16-2022 End: 04-16-[address] Florian Johns Work Phone: [facility]-Pulmonary Services/Neurology Start: 02-07-2022 End: 02-07-2022 ambulatory [facility] Work Phone: Start: 02-07-2022 End: 02-07-2022 Patient encounter procedure [facility] Start: 08-29-2021 End: 08-29-2021 Patient encounter procedure [facility] Start: 08-04-2021 End: 08-04-2021 [facility] Start: 05-23-2021 End: 05-23-2021 Patient encounter procedure [facility] Start: 05-17-2021 End: 05-17-2021 Patient encounter procedure [facility]Labor[facility], Specimen Start: 06-11-2017 End: 06-13-2017 Evaluation and management of inpatient SUNDAR GUARDADO Facility:UNKNOWN Start: 03-18-2017 Patient encounter status [facility] Start: 03-18-[address] Florian giraldo MD Work Phone: [facility] Start: 10-17-2016 Ambulatory SUNDAR GUARDADO Facility: UNKNOWN Procedures Date Procedure Procedure Detail Performing Clinician Start: 01-18-2025 Local anesthetic cer vical epidural block Dr. Florian Johns MD Work Phone: Start: 01-18-2025 Fluoroscopy guided injection of cervical spinal nerve root Dr. Florian Johns MD Work Phone: Start: 01-18-2025 Injection using fluoroscopic guidance Dr. Florian Johns MD Work Phone: Start: 09-22-2024 Screening mammography Regine Johns MD [...] Author Start: 05-23-2026 HPV TESTING HPV TESTING [facility] Start: 05-23-2026 PAP TESTING PAP TESTING [facility] Start: 05-23-2026 Screening for malign ant neoplasm of cervix Cervical Cancer Screening [facility] Start: 03-29-2025 ambulatory Ambulatory Facility:[facility] Start: 01-18-2025 Anes dx/ther nerve block/injection prone pos ANESTH N BLOCK/INJ PRONE [facility] Start: 01-18-2025 Njx dx/ther sbst int rlmnr crv/thrc w/img gdn NJX INTERLAMINAR CRV/THRC [facility] Start: 01-18-2025 Patient discharge [facility] Start: 10-07-2024 End: 10-07-2024 Patient encounter procedure 10/07/2024 3:20 PM EDT Office Visit OB/Gynecology [address] [place] [address] Yasmin Kee MD [address] [place] [address] Annual, x2 rescheduled OB/Gynecology Comment on above: Annual, x2 reschedul ed Start: 09-18-2024 End: 09-18-2024 Patient encounter procedure 09/18/2024 4:00 PM EDT Office Visit OB/Gynecology [address] [place] [address] Yasmin Kee MD [address] [place] [address] Annual OB/Gynecology Comment on above: Annual Start: 09-16-2024 BP Controlled (<130/80) BP Controlle d (<130/80) [facility] Start: 07-20-2024 End: 07-20-2024 Patient encounter procedure 07/20/2024 4:20 PM EDT Office Visit OB/Gynecology [address] [place] [address] Yasmin Kee MD [address] [place] [address] post op 4/4 OB/Gynecology Comment on above: post op 45 Start: 07-03-2024 Anesthesia intraperitoneal lower abd w/laps nos ANESTH SURG LOWER ABDOMEN [facility] Start: 07-03-2024 Insertion intrauteri ne device iud INSERT INTRAUTERINE DEVICE [facility] Start: 07-03-2024 Laparoscopy w/rmvl adnexal structures LAPAROSCOPY REMOVE ADNEXA [facility] Start: 07-03-2024 Removal intrauterine device iud REMOVE INTRAUTERINE DEVICE [facility] Start: 07-03-2024 Patient discharge [facility] Start: 07-03-2024 Procedure discontinued [facility] Start: 07-03-2024 Ambulation without limitation [facility] Start: 07-03-2024 Medical regimen orde rs management [facility] Start: 07-03-2024 Medication education [facility] Start: 07-03-2024 Taking patient vital signs [facility] Start: 07-03-2024 Vital signs measurements [facility] Start: 07-03-2024 [facility] Start: 06-09-2024 End: 06-09-2024 Patient encounter procedure 06/09/2024 4:20 PM EDT Office Visit OB/Gynecology [address] [place] [address] Yasmin Kee MD [address] [place] [address] surgery 07/03 OB/Gynecology Comment on above: surgery 07/03 Start: 04-21-2024 End: 04-21-2024 Patient encounter procedure 04/21/2024 3:20 PM EST Office Visit OB/Gynecology [address] [place] [address] Yasmin Kee MD [address] [place] [address] Consult for bilateral salpingectomy OB/Gynecology Comment on above: Consult for bilatera l salpingectomy Start: 12-01-2023 Covid-19 Vaccine ( season) Covid-19 Vaccine ( season) [facility] Start: 12-01-2023 Influenza vaccination Influenza Vacc ine (#1) [facility] Start: 06-28-2023 Screening for malign ant neoplasm of breast Mammogram Screening [facility] Start: 06-19-2023 BP CONTROLLED (<130/80) BP CONTROLLE D (<130/80) [facility] Start: 04-18-2023 Patient discharge [facility] Start: 04-18-2023 Ambulation without limitation [facility] Start: 04-18-2023 Application of ice collar, cap or bag [facility] Start: 04-18-2023 Application of intermittent pneumatic compression device [facility] Start: 04-18-2023 Catheterization of vein [facility] Start: 04-18-2023 Elevation of affecte d extremity [facility] Start: 04-18-2023 Following clinical pathway protocol [facility] Start: 04-18-2023 Medical regimen orde rs management [facility] Start: 04-18-2023 Procedure discontinued [facility] Start: 04-18-2023 Taking patient vital signs [facility] Start: 04-18-2023 Vital signs measurements [facility] Start: 04-18-2023 Wound care [facility] Start: 04-18-2023 [facility] Start: 04-18-2023 Medication education [facility] Start: 04-01-2023 Behavioral Health Screening Behavioral Health Screening [facility] Start: 11-30-2022 Covid-19 Vaccine () Covid-19 Vaccine () [facility] Start: 04-01-2022 DEPRESSION ASSESSMENT DEPRESSION ASS ESSMENT [facility] Start: 11-30-2021 Influenza vaccination INFLUENZA (#1) [facility] Start: 2021 COLOGUARD (FIT-DNA) COLOGUARD (FIT-D NA) [facility] Start: 2021 Colonoscopy COLONOSCOPY [facility] Start: 2021 COLORECTAL CANCER SCREENING COLORECTAL CANCER SCREENING [facility] Start: [address] COLONOGRAPHY [facility] Start: 2021 FECAL OCCULT BLOOD FECAL OCCULT BLOO D [facility] Start: 2021 Screening for malign ant neoplasm of colon [facility] Start: 2021 [facility] Start: 2016 Mammography MAMMOGRAM [facility] Start: 1995 Hepatitis B Vaccine (1 of - 19+ 3-dose series) Hepatitis B Vaccine (1 of 3 - 19+ 3-dose series) [facility] Start: 1995 Pneumococcal vaccination Pneum ococcal Vaccine (1 of 2 - PCV) [facility] Start: 1995 Urine microalbumin profile [facility] Start: 1994 ANNUAL PCP TEAM BASKET HAND BRAIDER ALMA ROSA DISEASE VISIT ANNUAL PCP TEAM CHRONIC DISEASE VISIT [facility] Start: 1994 Anxiety Screening Anxiety Screening [facility] Start: 1994 BP Controlled (<130/80) BP Controlle d (<130/80) [facility] Start: 1994 Depression Screening Depression Scre ening [facility] Start: 1994 Hepatitis B surface antibody level LDL CHOLESTEROL [facility] Start: 1994 HEPATITIS C SCREENING HEPATITIS C SC [facility] Start: 1994 Hepatitis C screening Hepatitis C [facility] Start: 1994 HIV SCREENING HIV SCREENING [facility] Start: 1994 HIV screening HIV Screening [facility] Start: 1986 3 comp foot exam completed DIABETIC FOOT EXAM [facility] Start: 1986 Diabetic foot examination Diabetic F oot Exam [facility] Start: 1986 Glaucoma screening Dilated Retinal E xam [facility] Start: 1986 Hepatitis B screening URINE ALBUMIN:CREATININE RATIO [facility] Start: 1986 Hepatitis C antibody , confirmatory test DILATED RETINAL EXAM [facility] Start: 1982 PNEUMOCOCCAL (1 - PCV) PNEUMOCOCCAL (1 - PCV) [facility] Start: 1982 Pneumococcal vaccination Pneum ococcal Vaccine (1 of 2 - PCV) [facility] Start: 1981 Hemoglobin A1c measurement HbA1C [facility] Start: 1981 Hemoglobin A1c/Hemoglobin.total in Blood HBA1C [facility] Start: 1976 COVID-19 VACCINE (#1) COVID-19 VACCI NE (#1) [facility] Start: 1976 HEPATITIS B (1 of 3 - 3-dose series) HEPATITIS B (1 of 3 - 3-dose series) [facility] End: 07-18-2023 RORY SCREENING RORY SCREENING Radiology Routine Encounter for screening mammogram for breast cancer 1 Occurrences starting 06/18/2022 until 07/18/2023 [facility] Work Phone: Comment on above: 1 Occurrences starti ng 06/18/2022 until 07/18/2023 Patient referral [facility] Work Phone: [facility] Immunizations Immunization Date Immunization Notes Care Provider Prosper carlin 02-02-2020 influenza virus vacc ine, unspecified formulation Yasmin Jackson MD Work Phone: [facility] Payers Date Payer Category Payer Self-pay [id number] 2022 Private Health Insurance [id number] 2022 Unknown [id number] 2013 Unknown [id number] Unknown [id number] Unknown [id number] Unknown [id number] Unknown [id number] Unknown [id number] Social History Date Type Detail Facility Start: 04-30-2020 End: 04-08-2023 Tobacco smoking status NHIS Unknown if ever smoked [facility] Start: 1975 Sex Assigned At Female [facility] Start: 12-24-2012 End: 01-07-2025 Tobacco smoking status NHIS Never smoked tobacco [facility] Start: 12-24-2012 Tobacco use and exposure Smokeless tobacco non-user [facility] Start: 06-18-2022 End: 07-03-2024 Alcohol intake Current drinker of alcohol (finding) [facility] Start: 12-24-2012 Alcohol Comment occasional [facility] Start: 09-17-2023 End: 06-09-2024 History of Social function [facility] Start: 09-17-2023 End: 06-09-2024 Tobacco use panel [facility] National Score (1-100), lower number is lower risk 80 [facility] Start: 04-04-2021 Gender identity Identifies as female gender (finding) [facility] Start: 04-04-2021 Sexual orientation Heterosexual (fin ding) [facility] Start: 07-03-2024 Sex Female (finding) [facility] NEGATED: Highlighted row Not [facility] Medical Equipment Procedure Code Equipment Code Equipment [...] difficulty hearing No 08/06/2014 10:59 AM Brandy Rdz RN No [facility] 08-06-2014 Are you blind, or do you have serious difficulty seeing, even when wearing glasses No 08/06/2014 10:59 AM Brandy Rdz, YOLIE No [facility] 08-06-2014 Do you have serious difficulty walking or climbing stairs No 08/06/2014 10:59 AM Brandy Rdz RN No [facility] 08-06-2014 Do you have difficul ty dressing or bathing No 08/06/2014 10:59 AM Brandy Rdz, YOLIE No [facility] 08-06-2014 Because of a physica l, mental, or emotional condition, do you have difficulty doing errands alone such as visiting a physician's office or shopping No 08/06/2014 10:59 AM Brandy Rdz RN No [facility] Mental Status Date Assessment Result Facility 01-18-2025 Cognitive function Level Of Cons ciousness [facility] Work Phone: 07-03-2024 Cognitive function Voice/Name [facility] Work Phone: 07-03-2024 Cognitive function Patient Omar damico Person;Place;Time [facility] Work Phone: 04-18-2023 Cognitive function Voice/Name [facility] Work Phone: 08-06-2014 Because of a physica l, mental, or emotional condition, do you have serious difficulty concentrating, remembering, or making decisions No 08/06/2014 10:59 AM EDT Brandy Lackey RN No [facility] Clinical Notes 04-16-2022 to 01-18-2025 Telephone Encounter - Jenn Reynolds RN - 07/09/2024 3:00 PM EDTTelephone Encounter - Jenn Reynolds RN - 07/09/2024 3:00 PM EDT Note Date & Type Note Facility 01-18-2025 Consult note [facility] 01-18-2025 Radiology Diagnostic study note [facility] Imaging Services [address] [place], [place] [address] Fluor Guidance for Spine Inj MR#: [id number] Acct: [id number] Name: NICOLASA CASTILLO Rep #: [id number] : 1975 F 49 From: Valdo Arambula MD PCP: Dr. Florian Johns MD Status: DEP S DC Study:Fluor Guidance for Spine Inj Date of Ex am: 01/18/25 Exam# [id number] Ordering Dr: Matthew Moyer MD PROCEDURE: FLUOR GUIDANCE FOR SPINE INJ; OR-STEROID INJ/CER THOR/1ST L 01/18/2025 REASON FOR EXAM: CERVICAL EPIDURAL BLOCK TECHNIQUE: Procedure Code: RADSPN; RADORSTINJCT1 Modality: DX Procedure: FLUOR GUIDANCE FORSPINE INJ; OR-STEROID INJ/CER THOR/1ST L Fluoroscopy time: 3.5 seconds. Dose: 0.69 mGy. COMPARISON: None. RAD/Fluor Guidance for Spine Inj IMPRESSION: Fluoroscopy was performed for cervical spine injection. 3 fluoroscopic images were also obtained. Reading Location: [address] CC: Dr. Matthew Moyer MD; Dr. 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 Florian Johns MD Status: DEP S DC Study:OR-Steroid Inj/Cer Thor/1st L Date of E xam: 01/18/25 Exam# [id number] Ordering Dr: Matthew Moyer MD PROCEDURE: FLUOR GUIDANCE FOR SPINE INJ; OR-STEROID INJ/CER THOR/1ST L 01/18/2025 REASON FOR EXAM: CERVICAL EPIDURAL BLOCK TECHNIQUE: Procedure Code: RADSPN; RADORSTINJCT1 Modality: DX Procedure: FLUOR GUIDANCE FORSPINE INJ; OR-STEROID INJ/CER THOR/1ST L Fluoroscopy time: 3.5 seconds. Dose: 0.69 mGy. COMPARISON: None. RAD/OR-Steroid Inj/Cer Thor/1st L IMPRESSION: Fluoroscopy was performed for cervical spine injection. 3 fluoroscopic images were also obtained. Reading Location: [address] CC: Dr. Matthew Moyer MD; Dr. 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 Author Type: Physician Type: Progress Notes Filed: 01/04/2025 16:24 Note Text: Orthopedic Shoe Fitter offered: Patient declinesRobe Baldwin is a 49 year old who presents [...] Living0 SAB0 IAB0 Ectopic0 Multiple0 Live Births0 Rn School History LMP: 07/27/2014, IUD Age at Menarche: 14 Age at First : Age at Menopause: Rn School History Comments: Sexual Activity: Yes; Male; Rose replaced 07/03/24 by DM at [facility] Contraception: I.U.D. PAST MEDICAL HISTORY Diagnosis Date Diabetes (HCC) Dysmetabolic syndrome Gout Hypercholesteremia Hypertension Hypothyroidism PAST SURGICAL HISTORY Procedure Laterality Date ASPIRATIONAND/INJECTION GANGLION CYST ANY LOCATJ Right 04/2023 removal cyst INSERTION OF IUD 07/03/2024 Liljesus MIRENA 03/23/2013 Removed 07/03/24 by DM at [facility] OFFICE LEEP 02/13/2013 Negative PAST SURGICAL HISTORY OF 05/2017 gastric [facility] REDUCTION OF LARGE BREAST Bilateral 2020 SALPINGECTOMY [...] discussed with the Patient or Patient's Authorized Gymnasium Teacher. As applicable, any other physician, advance practice provider, medical student, or other health professional student that will be observing or involved in the sensitive examination for educational or training purposes was discussed with the Patient or Authorized Gymnasium Teacher. The Patient or Authorized Gymnasium Teacher has agreed to proceed with the sensitive examination. (Sensitive examination includes inspection and/or palpation of the breasts, pelvis, prostate and anorectal regions). EXAM: BP 122/74 Ht 5' 7.717" (1.72m) Wt 192 lb (87.1kg) LMP 07/27/2014 [...] external genitalia normal, normal [place]'s glands, urethra, [place]'s glands, no vulvar lesions, no cervical lesions, [...] or sooner as needed Yasmin Crouch MD [facility] 07-09-2024 Telephone encounter Note Pt notified and voiced understanding. Pt [...] questions/concerns at this time. Jenn Reynolds RN [facility] 07-09-2024 Miscellaneous Notes Pt notified and voiced understanding. Pt states [...] op unless concerns. documented in this encounter [facility] 07-09-2024 Telephone encounter Note Please notify patient that pathology was benign from lap bilateral salpingectomy. She did have small cyst on one of her tubes that was c/w serous cystadenoma that I removed- nothing further. How is she feeling? No need for post op unless concerns. [facility] 07-03-2024 Consult note [facility] 07-03-2024 Consult note Note Date/Time July 03, 2024 9:33am [facility] Medical Records Department [address] [place] [address] Anesthesia Postop Eval I 07/03/24 0931 MR#: [id number] Acct: [id number] Name: NICOLASA CASTILLO Rep #:[id number] : 1975 49 From: Tamela Desai CRNA PCP: Dr. Florian Johns MD Status:REG S DC Y Race: C Location: [place] [address] Anesthesia: Postop Eval I Current Vital Signs [...] 07/03/24 0933 <Electronically signed by Tamela medeiros [employer]> Date _ Tamela Desai [employer] Cosigner Signature: Date CC: ~ Signed [facility] Work Phone: 1(921) 434-607004-04-2025 Discharge summary Author Yasmin Panda [facility] Note Date/Time July 03, 2024 8:24 am [facility] Medical Records Department [address] [place] [address] Instructions for Home/Discharge Instructions 07/03/24 0823 MR#: [id number] Acct: [id number] Name: NICOLASA CASTILLO Rep #:[id number] : [...] if you need an appointment please call [phone] Test Results: Test results from this visit will be discussed in further detail at your follow- up appointment, if applicable. Discharge Plan Admission Attending Provider: Yasmin Crouch Primary Care Provider: Florian Johns Instructions Print Language: Moroccan Discharge Orders/Prescriptions Prescriptions: No Action levothyroxine 88 [...] can be placed): Home, Self Care 07/03/24 0824<Electronically signed by Yasmin Crouch MD>Yasmin Crouch MD CC: Dr. Florian Johns MD ~ Signed [facility] Work Phone: 1(933) 233-275504-04-2025 Consult note [facility] Note Date/Time July 03, 2024 7:53 am [facility] Medical Records Department [address] [place] [address] Pre-Anesthesia Evaluation 07/03/24 0747 MR#: [id number] Acct: [id number] Name: NICOLASA CASTILLO Rep #:[id number] : 1975 49 From: Kaushal Leonardo MD PCP: Dr. 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 History - process safety engineer Hx Hospitalization No 06/10/24 08:11 Any Problems [...] take am of surgery PONV PONV - process safety engineer: PONV - process safety engineer Female Yes 06/10/24 08:11 HX of Motion [...] 07/03/24 07:11 Respiratory Assessment Respiratory Assessment - process safety engineer: Respiratory Tract Infection Hx - process safety engineer Hx Respiratory Tract Infection No 06/10/24 08:11 STOP Sleep Apnea STOP Sleep Apnea - process safety engineer: STOP Sleep Apnea - process safety engineer Hx Hypertension Yes: NO MEDS SINCE 201706/10/24 [...] Tobacco Use History Tobacco Use History - process safety engineer: Tobacco Use History - process safety engineer Tobacco Use Smoking Status Never smoker 06/10/24 08:11 Hx Tobacco Use No 06/10/24 08:11 Years Smoking Packs Smoked per Day Smoking Cessation Date was within the last 15 years Hx Smoking Cessation Date Hx Smoking Cessation Counseling Hematologic Medial History Hematologic Hx - process safety engineer: 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 Hx of Blood Transfusion No 06/10/24 08:11 [...] confused, unrespo /Reproduction History /Reproductive History - process safety engineer: /Reproductive Hx- process safety engineer Hx Now No 06/10/24 08:11 Gestational Age [...] Family History Mother CAD (coronary artery disease) [place] age 47 Hypertension Brother Hypertension Diabetes Other [...] Date _ Kaushal Leonardo MD Cosigner Signature: CC: ~ Signed [facility] Work Phone: [phone]) 206-351404-04-2025 Consult note [facility] Medical Records Department [address] [place] [address] Anesthesia Postop Eval I 07/03/2431 MR#: [id number] Acct: [id number] Name: NICOLASA CASTILLO Rep #:[id number] : 1975 49 From: Tamela Desai CRNA PCP: Dr. 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 Florian Johns MD Status:REG S MO Location: [place] [address] History and Physical Date of Admission: 07/03/24 [...] PAST SURGICAL HISTORY OF 05/2017 [facility] ? REDUCTION OF LARGE BREAST Bilateral 2019 [...] Blood pressure 134/72, height 170.2 cm (5' 7"), weight 89.8 kg (198 lb),last menstrual period [...] MD; Dr. Florian Johns MD ~* Signed [facility] Work Phone: 1(703) 244-778404-04-2025 Procedure note [facility] Medical Records Department [address] [place] [address] Operative Report 07/03/24 0913 MR#: [id number] Acct: [id number] Name: NICOLASA CASTILLO Rep #:[id number] : 1975 49 From: Yasmin Jackson MD PCP: Dr. Florian Johns MD Status:REG S DC Location: [place] [address] Operative Report (Standard) Operative Information Date of Procedure: 07/03/24 Pre-Operative Diagnosis: desires sterilization, dysmenorrhea, heavy menses Post-Operative Diagnosis: same, Omental adhesions Surgery/Procedure Performed: IUD removal, IUD- liletta insertion, laparoscopic bilateral salpingectomy, Lysis of adhesions knifeman: No Type of Anesthesia: General and Local [...] anesthesia. She was then placed in the [facility] stirrups and she was prepped and [...] Crouch MD; Dr. Florian Johns MD~ Signed [facility]04-04-2025 Discharge summary [facility] Medical Records Department [address] [place] [address] [place] [address] Instructions for Home/Discharge Instructions 07/03/24 0823 MR#: [id number] Acct: [id number] Name: NICOLASA CASTILLO Rep #:[id number] : [...] if you need an appointment please call [phone] Test Results: Test results from this visit will be discussed in further detail at your follow- up appointment, if applicable. Discharge Plan Admission Attending Provider: Yasmin Crouch Primary Care Provider: Florian Johns Instructions Print Language: Moroccan Discharge Orders/Prescriptions Prescriptions: No Action levothyroxine 88 [...] CC: Dr. Florian Johns MD ~ Signed [facility]04-04-2025 Consult note [facility] Medical Records Department [address] [place] [address] Pre-Anesthesia Evaluation 07/03/24 0747 MR#: [id number] Acct: [id number] Name: NICOLASA CASTILLO Irlanda Rep #:[id number] : 1975 49 From: Kaushal Leonardo MD PCP: Dr. 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 History - process safety engineer Hx Hospitalization No 06/10/24 08:11 Any Problems [...] take am of surgery PONV PONV - process safety engineer: PONV - process safety engineer Female Yes 06/10/24 08:11 HX of Motion [...] 07/03/24 07:11 Respiratory Assessment Respiratory Assessment - process safety engineer: Respiratory Tract Infection Hx - process safety engineer Hx Respiratory Tract Infection No 06/10/24 08:11 STOP Sleep Apnea STOP Sleep Apnea - process safety engineer: STOP Sleep Apnea - process safety engineer Hx Hypertension Yes: NO MEDS SINCE 201706/10/24 [...] Tobacco Use History Tobacco Use History - process safety engineer: Tobacco Use History - process safety engineer Tobacco Use Smoking Status Never smoker 06/10/24 08:11 Hx Tobacco Use No 06/10/24 08:11 Years Smoking Packs Smoked per Day Smoking Cessation Date was within the last 15 years Hx Smoking Cessation Date Hx Smoking Cessation Counseling Hematologic Medial History Hematologic Hx - process safety engineer: 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 Hx of Blood Transfusion No 06/10/24 08:11 [...] confused, unrespo /Reproduction History /Reproductive History - process safety engineer: /Reproductive Hx- process safety engineer Hx Now No 06/10/24 08:11 Gestational Age [...] Family History Mother CAD (coronary artery disease) [place] age 47 Hypertension Brother Hypertension Diabetes Other [...] MD Cosigner Signature: Date CC: ~ Signed [facility]04-04-2025 History and physical note [facility] Medical Records Department [address] [place] [address] H&P 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 Florian Johns MD Status:REG S MO Location: [place] [address] History and Physical Date of Admission: 07/03/24 [...] PAST SURGICAL HISTORY OF 05/2017 [facility] ? REDUCTION OF LARGE BREAST Bilateral 2020 ? VAGINOSCOPY 01/14/2013 GILES 3 ? VAGINOSCOPY [...] Blood pressure 134/72, height 170.2 cm (5' 7"), weight 89.8 kg (198 lb),last menstrual period [...] on 06/09/2024 Note shared with patient 07/02/24 8843 Cosigner Signature (if applicable): CC: Dr Yasmin Crouch MD; Dr. Florian Johns MD~ Signed ADDENDUM by Dr Yasmin Crouch MD on 07/03/24 at 0722 Addendum I have examined the patient and the H&P has been reviewed. There are no clinicalchanges since date of exam. 07/03/24 0722 Cosigner Signature (if applicable): cc: Dr Yasmin Crouch MD; Dr. Florian Johns MD ~* Signed [facility]03-11-2025 NoteHNO ID: [id number] Author: YASMIN KEE MD Service: ? Author Type: Physician Type: Progress Notes Filed: 06/09/2024 17:27 Note Text:[facility]03-11-2025 History of Present illness Narrative* Yasmin Kee MD - 06/09/2024 5:25 PM EDT [facility] History and physical note * Yasmin [...] Negative PAST SURGICAL HISTORY OF 05/2017 [facility] REDUCTION OF LARGE BREAST Bilateral [...] Blood pressure 134/72, height 170.2 cm (5' 7"), weight 89.8 kg (198 lb), last menstrual [...] history, medications and allergies Yasmin Jackson MD [facility]03-11-2025 History and physical note* Yasmin Kee [...] PAST SURGICAL HISTORY OF 05/2017 [facility] REDUCTION OF LARGE BREAST Bilateral 2020 VAGINOSCOPY [...] Blood pressure 134/72, height 170.2 cm (5' 7"), weight 89.8 kg (198 lb), last menstrual [...] allergies Yasmin Jackson MD documented [facility]01-21-2025 NoteHNO ID: [id number] Author: YASMIN KEE MD Service: ? Author [...] L0 SAB0 IAB0 Ectopic0 Multiple0 Live Births0 Rn School History LMP: 07/27/2014, IUD Age at Menarche: Age at First : Age at Menopause: Rn School History Comments: Sexual Activity: Yes; Male Contraception: I.U.D. PAST MEDICAL HISTORY Diagnosis Date Diabetes (HCC) Dysmetabolic syndrome Gout Hypercholesteremia Hypertension Hypothyroidism PAST SURGICAL HISTORY Procedure Laterality Date ASPIRATIONAND/INJECTION GANGLION CYST ANY LOCATJ Right 04/2023 removal cyst MIRENA 03/23/2013 OFFICE LEEP 02/13/2013 Negative PAST SURGICAL HISTORY OF 05/2017 [facility] REDUCTION OF LARGE BREAST Bilateral 2020 [...] which included preparing to see the patient, [id number] patient care, completing clinical documentation, obtaining and/or reviewing separately obtained history, performing a medically appropriate examination, and counseling and educating the patient/family/caregiver. Yasmin Crouch [facility]01-21-2025 History of Present illness Narrative* Yasmin Kee [...] L0 SAB0 IAB0 Ectopic0 Multiple0 Live Births0 Rn School History LMP: 07/27/2014, IUD Age at Menarche: Age at First : Age at Menopause: Rn School History Comments: Sexual Activity: Yes; Male Contraception: I.U.D. PAST MEDICAL HISTORY Diagnosis Date Diabetes (HCC) Dysmetabolic syndrome Gout Hypercholesteremia Hypertension Hypothyroidism PAST SURGICAL HISTORY Procedure Laterality Date ASPIRATION&/INJECTION GANGLION CYST ANY LOCATJ Right 04/2023 removal cyst MIRENA 03/23/2013 OFFICE LEEP 02/13/2013 Negative PAST SURGICAL HISTORY OF 05/2017 [facility] REDUCTION OF LARGE BREAST Bilateral 2020 [...] which included preparing to see the patient, [id number] patient care, completing clinical documentation, obtaining and/or reviewing separately obtained history, performing a medically appropriate examination, and counseling and educating the patient/family/caregiver. Yasmin Crouch MD documented [facility]01-[facility]25 Telephone encounter Note * Telephone Encounter - Desiree Vann RN - 04/09/2024 9:07 AM EST Patient not able to leave work today. Scheduled for another date. Desiree Vann RN [facility]01-09-2025 Miscellaneous Notes* Telephone Encounter - Desiree [...] tubal. Brandy Lackey RN documented in this encounterMer[facility]01-09-2025 Telephone encounter Note * Telephone Encounter - Yasmin Kee MD - 04/09/2024 8:00 AM EST Yes, please schedule with me. I have openings today. [facility]01-08-2025 Telephone encounter Note* Telephone Encounter - Brandy Lackey RN - 04/08/2024 4:50 PM EST Patient last seen for annual exam on 09/17/23. Do you want patient to schedule consult for tubal. Brandy Lackey RN [facility]07-01-2024 Telephone encounter Note* Telephone Encounter - Brandy Lackey RN - 09/30/2023 9:16 AM EDT Patient notified and voiced understanding. Patient states she will contact office if she would liketo see dermatology. Brandy Lackey RN [facility]07-01-2024 Miscellaneous Notes* Telephone Encounter - Brandy Lackey [...] try something like GUILHERME D'OR (sell on [employer] Sensing) use erik drops, and can use Spironolactone 10 days out of the month. I would also recommend second opinion by Dermatology. * Telephone Encounter - Pat Marquez LPN - 09/26/2023 4:57 PM EDT Testosterone and DHEA lab results from [facility] received and to Dr. Jackson to review. Results entered in scanned documents documented in this encounterMer[facility]06-30-2024 Telephone encounter Note * Telephone Encounter [...] try something like GUILHERME D'OR (sell on Molecular Sensing) use erki drops, and can use Spironolactone 10 days out of the month. I would also recommend second opinion by Dermatology. [facility]06-27-2024 Telephone encounter Note* Telephone Encounter - Pat Marquez LPN - 09/26/2023 4:57 PM EDT Testosterone and DHEA lab results from [facility] received and to Dr. Jackson to review. Results entered in scanned documents [facility]2023 Instructions* Patient Instructions* Yasmin Jackson MD - [...] salmon and sardines and vegetables, such as Mosotho cabbage, kale, and broccoli. Foods fortified with [...] acid, calcium carbonate is found in some tglx-qid-eqevfws antacid products, such as Tums and Rolaids [...] prescribed by your doctor. documented in this encounterMer[facility]2023 History of Present illness Narrative* Yasmin Jackson MD - 06/18/2022 3:39 PM EDT Orthopedic Shoe Fitter offered: Patient declines. Nicolasa is a 47 year old who presents for an annual gynecologic exam without complaints. Hair loss stable since last year. Planning trip to [place]. Daughter getting this year. Menses: no menses - Mirena IUD. Contraception: IUD HPV vaccine: No Last Pap: 05/29/2021 normal HPV: 05/26/2021 negative History of abnormal pap: Yes Last mammogram: 2020[place] [facility] Sexually active: Yes [...] L0 SAB0 IAB0 Ectopic0 Multiple0 Live Births0 Rn School History LMP: 07/27/2014, IUD Age at Menarche: Age at First : Age at Menopause: Rn School History Comments: Sexual Activity: Yes; Male Contraception: I.U.D. PAST MEDICAL HISTORY Diagnosis Date Diabetes (HCC) Dysmetabolic syndrome Gout Hypercholesteremia Hypertension Hypothyroidism PAST SURGICAL HISTORY Procedure Laterality Date MIRENA 03/23/2013 OFFICE LEEP 02/13/2013 Negative PAST SURGICAL HISTORY OF 05/2017 gastric [facility] REDUCTION OF LARGE BREAST Bilateral 2020 [...] medication updated:Yes EXAM: BP 120/74 Ht 5' 8" (1.73m) Wt 181 lb 9.6 oz (82.4kg) [...] external genitalia normal, normal Bartholin's glands, urethra, [place]'s glands, no vulvar lesions, no cervical lesions, good vaginal support, physiologic discharge present, normal appearing perineal body and perianal region, IUD strings present BIMANUAL: uterus normal size, shape and consistency, no adnexal masses, and non-tender RECTOVAGINAL: deferred. NEURO: alert and oriented x3,exam grossly non-focal EXTREMITIES: normal ASSESSMENT/PLAN: 1) Health maintenance: Pap/HPV up to date. Mammogram ordered [facility] Nutrition, exercise and routine health maintenance exams reviewed. Calcium/vit d information provided. 2) Contraception: IUD. Contraceptive options reviewed and information provided. 3) STD screening: Declined STD check. 4) Follow up one year or sooner as needed Yasmin Crouch MD documented in this encounterMer[facility]01-16-2023 Procedure [facility]Consult [facility] Author Rose Geiger [facility] Note Date/Time July 03, 2024 12:1 0pm [facility] Medical Records Department [address] [place] [address] Anesthesia Postop Eval II 07/03/24 1050 MR#: [id number] Acct: [id number] Name: NICOLASA CASTILLO Rep #:[id number] : 1975 49 From: Rose Geiger PCP: Dr. Florian Johns MD Status:REG S DC Y Race: C Location: [place] [address] Anesthesia Postop Eval I Sum Postop Eval Completion status Anesthesia document: Postop Eval 1 completed: Yes Anesthesia Postop Eval I Summary Anesthesia Postop Eval I Summary: Anesthesia Postop Eval I: Assessment Summary Airway patent Yes 07/03/24 09:33 [employer].LMIL Spontaneous unlabored Yes 07/03/24 09:33 [employer].LMIL respirations Mental status Awake 07/03/24 09:33 [employer].LMIL nausea No 07/03/24 09:33 [employer].LMIL Vomiting No 07/03/24 09:33 [employer].LMIL Anesthesia Postop Eval I: Fluid Summary Crystalloid volume administer 1,000 07/03/24 09:33 [employer].LMIL (ml) Colloids volume administered ( ml) Blood Product volume administered (ml) Total IV fluid infused 1,000 07/03/24 09:33 [employer].LMIL Anesthesia Postop Eval I: Summary Notes Anesthesia Complication No 07/03/24 09:33 [employer].LMIL Anesthesia Complication Comment: Post-operative progress note Anesthesia: Postop Eval II Evaluation Mental status: Awake Pain Level: 2 nausea: No Vomiting: No 07/03/24 1050 <Electronically signed by Rose brizuela> Date _ Rose De Santiago Signature: Date CC: ~ Signed [facility] Work Phone: Consult note [facility] Medical Records Department [address] [place] [address] [place] [address] Anesthesia Postop Eval II 01/18/25 1237 MR#: [id number] Acct: [id number] Name: NICOLASA CASTILLO Rep #:[id number] : 1975 49 From: Jan Daniel MD PCP: Dr. Florian Johns MD Status:DEP S DC Y Race: C Location: [facility] Anesthesia Postop Eval I Sum Postop Eval Completion status Anesthesia document: Postop Eval 1 completed: Yes Anesthesia Postop Eval I Summary Anesthesia Postop Eval I Summary: Anesthesia Postop Eval I: Assessment Summary Airway patent Yes 01/18/25 08:06 [employer].CSIR Spontaneous unlabored Yes 01/18/25 08:06 [employer].CSIR respirations Mental status nausea No 01/18/25 08:06 [employer].CSIR Vomiting No 01/18/25 08:06 [employer].CSIR Anesthesia Postop Eval I: Fluid Summary Crystalloid volume administer 200 01/18/25 08:06 [employer].CSIR (ml) Colloids volume administered ( ml) Blood Product volume administered (ml) Total IV fluid infused 200 01/18/25 08:06 [employer].CSIR Anesthesia Postop Eval I: Summary Notes Anesthesia Complication No 01/18/25 08:06 [employer].CSIR Anesthesia Complication Comment: Post-operative progress note Anesthesia: Postop Eval II Evaluation Mental status: Awake Pain Level: 3 nausea: No Vomiting: No 01/18/25 1237 > Date _ Jan Daniel MD Cosigner Signature: Date CC: ~ Signed [facility] Hospital[facility] note Author Jan [facility] Note Date/Time January 18, 2025 9 :44am [facility] Medical Records Department [address] [facility] [address] Pre-Anesthesia Evaluation 01/18/25 0755 MR#: [id number] Acct: [id number] Name: NICOLASA CASTILLO Rep #:[id number] : 1975 49 From: Jan Daniel MD PCP: Dr. Florian Johns MD Status:REG S DC Y Race: C Location: [place] [address]- ASA Classification* ASA Classification ASA Classification: 2 [...] anesthesia risk assessments. Anesthesia Type Anesthesia Type: MAC Anesthesia Focused Assessment* Temperature: 97.6 F Pulse Rate: 69 Blood Pressure: 122/83 Respiratory Rate: 16 Pulse Ox: 98 Airway Assessment Mouth opens: >3 cm Mallampati Score: II Labs Anesthesia Preop lab: CBC WBC, (4.4-11.0) 3.9 K/mm3 L 07/03/24, 07:20 RBC, (4.2-5.4) 3.76 M/mm3 L 07/03/24, 07:20 Hgb, (12.0-15.0) 11.0 g/dL L 07/03/24, 07:20 Hct, (37-47) 33.4 % L 07/03/24, 07:20 Plt Count, (150-450) 246 K/mm3 07/03/24, 07:20 CHEMISTRY Potassium, (3.3-5.1) 3.9 mmol/L 07/03/24, 07:20 Sodium, (133-145) 142 mmol/L 07/03/24, 07:20 BUN, (4-19) 21 mg/dL H 07/03/24, 07:20 Creatinine, (0.70-1.20) 0.66 mg/dL L 07/03/24, 07:20 Glucose, (70-99) 94 mg/dL 07/03/24, 07:20 POC Glucose, (70-110) 85 mg/dL 02/23/20, 11:22 TSH, (0.300-4.200) 2.140 uIU/mL 07/03/24, 07:20 COAG PT, (11.7-14.9) 12.7 SECONDS 02/22/20, 07:13 Urine Test Negative Negative 07/03/24, 07:00 Pre-Assessment Diagnosis/Proposed Procedure Planned Operative Procedure(s): (N/A) Block, Cervical Epidural Anesthesia History 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 When Was Last Pacemaker Check QUESTION #4 FULL TEXT: You/Your Family Experience fever (hyperthermia) with Anesthesia Last Oral Intake Last Oral intake: Last Oral Intake NPO since 22:00 01/18/25 06:43 Meds taken in AM with sips of water? Meds patient instructed to take am of surgery PONV PONV - process safety engineer: PONV - process safety engineer Female Yes 01/07/25 13:33 HX of Motion Sickness No 01/07/25 13:33 HX of N/V After Surgery No 01/07/25 13:33 Non-Smoker Yes 01/07/25 13:33 Duration of Surgery greater No 01/07/25 13:33 than 60 minutes Number of Risk Factors 2 01/07/25 13:33 PONV Score Moderate Risk 01/07/25 13:33 Height & Weight Height & Weight: Anesthesia: Height & Weight Height 5 ft 7 in 01/18/25 06:43 Weight: 88.451 kg 01/18/25 06:43 Body Mass Index (BMI) 30.5 01/18/25 06:43 Respiratory Assessment Respiratory Assessment - process safety engineer: Respiratory Tract Infection Hx - process safety engineer Hx Respiratory Tract Infection No 01/07/25 13:33 STOP Sleep Apnea STOP Sleep Apnea - process safety engineer: STOP Sleep Apnea - process safety engineer Hx Hypertension Yes: NO MEDS SINCE 201701/07/25 13:33 Hx Sleep Apnea No 01/07/25 13:33 CPAP No: BEFORE WEIGHT LOSS 01/07/25 13:33 BIPAP No 01/07/25 13:33 Do you snore loudly (louder No 01/07/25 13:33 than talking or can be heard Do you often feel tired/ No 01/07/25 13:33 fatigued/ sleepy during daytime? Has anyone observed you stop No 01/07/25 13:33 breathing during sleep? STOP Results Negative 01/07/25 13:33 QUESTION #5 FULL TEXT : Do you snore loudly (louder than talking or can be heard through closed doors)? 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 Specify any problems Hx of Preganancy in last 3 No 01/07/25 13:33 Months Nurse Filling Out Transfusion MGRIFFITH 01/07/25 13:33 & Questions: Date: 01/07/25 01/07/25 13:33 Time: 13:35 01/07/25 13:33 Patient unable to answer at this time (ie. confused, unrespo /Reproduction History /Reproductive History - process safety engineer: /Reproductive Hx- process safety engineer Hx Now No 01/07/25 13:33 Gestational Age (in weeks): EDC: Hx Hx Para Hx Section SAB No 01/07/25 13:33 Active Medications Active Medications: Current Medications Generic Name Dose Route Start Last Admin Trade Name Freq PRN Reason Stop Dose Admin Lactated Ringer's 1,000 mls @ 15 mls/hr 01/18/25 06:45 01/18/25 06:52 IV 15 mls/hr .Q48H DAVE Administration PFSH Medical History Thyroid disease Non-smoker History of edema Alcohol use Migraine headache Leg cramps History [...] mcg tablet 88 mcg PO DAILY thyroid 01/17/25 History allopurinol 100 mg tablet 100 mg PO DAILY 06/10/24 History bupropion HCl 300 mg 24 hr tablet, 300 mg PO DAILY 03/2501/17/25 History extended release meloxicam 15 mg tablet 15 mg PO DAILY 06/10/2412/30 History Allergy/AdvReac Type Severity Reaction Status Date / Time No Known Allergies Allergy Verified 01/18/25 06:42 Family History Mother CAD (coronary artery disease) [place] age 47 Hypertension Brother Hypertension Diabetes Other Arthritis Surgical History History of tubal ligation Hx of hand surgery History of bilateral [...] and no additional complaints, except as documented. 01/18/25 075 <Electronically signed by Jan Daniel MD > Date _ Jan Daniel MD Cosigner Signature: Date CC: ~ Signed [facility] Work Phone: Consult note Author Rose Geiger [facility] Note Date/Time January 18, 2025 9 :07am [facility] Medical Records Department [address] [place] [address] Anesthesia Postop Eval I 01/18/25 0805 MR#: [id number] Acct: [id number] Name: NICOLASA CASTILLO Rep #:[id number] : 1975 49 From: Rose Geiger CRNA PCP: Dr. Florian Johns MD Status:REG S DC Y Race: C Location: [place] [address] Anesthesia: Postop Eval I Current Vital Signs Temperature: 98.2 F Pulse Rate: 72 Blood Pressure: 110/75 Respiratory Rate: 20 Pulse Ox: 98 Assessment Airway patent: Yes Spontaneous unlabored respirations: Yes nausea: No Vomiting: No Anesthesia Complication: No Fluid Hydration Crystalloid volume administer (ml): 200 Total IV fluid infused: 200 Progress Note Anesthesia document: Postop Eval 1 completed: Yes 01/18/25 08 <Electronically signed by Rose brizuela [employer]> Date _ Rose Geiger [employer] Cosigner Signature: Date CC: ~ Signed [facility] Work Phone: Consult note Author Jan ricky [facility] Note Date/Time January 18, 2025 1 :37pm [facility] Medical Records Department [address] [place] [address] Anesthesia Postop Eval II 01/18/25 1237 MR#: [id number] Acct: [id number] Name: NICOLASA CASTILLO Rep #:[id number] : 1975 49 From: Jan Daniel MD PCP: Dr. Florian Johns MD Status:DEP S DC Y Race: C Location: [facility] Anesthesia Postop Eval I Sum Postop Eval Completion status Anesthesia document: Postop Eval 1 completed: Yes Anesthesia Postop Eval I Summary Anesthesia Postop Eval I Summary: Anesthesia Postop Eval I: Assessment Summary Airway patent Yes 01/18/25 08:06 [employer]CSIR Spontaneous unlabored Yes 01/18/25 08:06 [employer].CSIR respirations Mental status nausea No 01/18/25 08:06 [employer]CSIR Vomiting No 01/18/25 08:06 [employer]CSIR Anesthesia Postop Eval I: Fluid Summary Crystalloid volume administer 200 01/18/25 08:06 [employer].CSIR (ml) Colloids volume administered ( ml) Blood Product volume administered (ml) Total IV fluid infused 200 01/18/25 08:06 [employer].CSIR Anesthesia Postop Eval I: Summary Notes Anesthesia Complication No 01/18/25 08:06 [employer]CSIR Anesthesia Complication Comment: Post-operative progress note Anesthesia: Postop Eval II Evaluation Mental status: Awake Pain Level: 3 nausea: No Vomiting: No 01/18/25 1237 <Electronically signed by Jan Daniel MD > Date _ Jan Daniel MD Cosign Signature: Date CC: ~ Signed [facility] Work Phone: Evaluation noteNo assessment information available [facility] Work Phone: Evaluation note* Diagnosis Encounter for gynecological examination (general) (routine) without abnormal findings- Primary Encounter for screening mammogram for breast cancer [facility] Sterilization consult- Primary Other general counseling and advice for contraceptive management [facility] Diagnosis Sterilization consult- Primary Other general counseling and advice for contraceptive management Abnormal uterine bleeding (AUB) Dysmenorrhea Pre-op exam Preoperative examination, unspecified documented in this encounter [facility] Discharge instructions Additional Instructions Implant Used?: [facility] Work Phone: Reason for referral (narrative)* Diagnostic Procedure Only (Routine) - Pending Review Specialty Diagnoses / Procedures Referred By Contac t Referred To Contact [facility] Diagnoses Encounter for screening mammogram for breast cancer Procedures RORY SCREENING SCREENING MAMMOGRAPHY BI 2-VIEW BREAST INC CAD Yasmin Kee MD [address] [place] [address] [facility] [address] [place] [address] Referral ID Status Reason Start Date Expiration Date Visits Requested Visits Authorized [id number] Pending Review Auto-Generat ed Referral 06/18/2022 07/18/2023 1 1 [facility] for referral (narrative)No reason for referral [facility] Work Phone: Summary Purpose Family History Relationship Condition Age at Onset Recorded Date/T elvira Not Specified Arthritis Unknown mother Coronary artery disease Unknown Hypertension Unknown brother Hypertension Unknown Diabetes mellitus Unknown Advance Directives Advance Directive Response Recorded Date/ Time Advance Directives No June 17 2 014 2:14pm Living Will No February 21 020 4:30pm Power of Financial Analysis Manager No February 22, 2020 4:30pm Advance Directive Response Recorded Date/ Time Advance Directives No June 17, 2 014 1:14pm Living Will No February 21, 2 020 3:30pm Power of Financial Analysis Manager No February 22, 2020 3:30pm Advance Directive Response Recorded Date/ Time Advance Directives No June 17, 2 014 1:14pm Living Will No April 08 1:20pm Power of Financial Analysis Manager No April 08, 2 024 1:20pm Advance Directive Response Recorded Date/ Time Living Will No June 10, 2024 8:11am Do you have a Healthcare Power of Financial Analysis Manager? No June 10, 2024 8:11am Advance Directives No June 17 2 014 2:14pm Advance Directive Response Recorded Date/ Time Do you have a Healthcare Power of Financial Analysis Manager? No January 07, 2025 12:33pm Advance Directives No June 17 2 014 1:14pm Chief Complaint and Reason for Visit Chief [...] 3:02pm SCREENING September 22, 2024 5:15 pm Chief Complaint Admit Date Block, Cervical Epidural January 18, 2 025 6:26am Additional Source Comments INFORMATION SOURCE (unrecogn ized section and content) DATE CREATED AUTHOR 09/19/2017 [facility] [employer] DATE CREATED AUTHOR AUTHOR'S ORGANIZ ATION 01/07/2025 [facility] DATE CREATED AUTHOR AUTHOR'S ORGANIZ ATION 01/22/2025 [facility] Goals (unrecognized section and content) Goals may [...] Member Role Status Dates Dr. Luis E Watson MD Family Provider Active Dr. Florian Johns [...] MD Primary Care Provider, Attending Provider Active Billet Recorder Relationship Specialty Start Date End Date Luis E Watson Chi PCP - General Family Medicine 12/12/12 [...] Youssef DO Attending Provider, Referring Provider Active Billet Recorder Relationship Specialty Start Date End Date Luis E Watson Chi PCP - General Family Medicine 12/12/12 Billet Recorder Relationship Specialty Start Date End Date Luis E Watson Chi PCP - General Family Medicine 12/12/12 Billet Recorder Relationship Specialty Start Date End Date Luis E Watson Chi PCP - General Family Medicine 12/12/12 [...] July 03, 2024 End: July 03, 2024 Billet Recorder Relationship Specialty Start Date End Date Luis E Watson Chi PCP - General Family Medicine 12/12/12 [...] September 22, 2024 End: September 22, 2024 Team Status: Active Member Role/Relationship Status Dates Dr. Florian Johns MD Primary care physician Active Team Status: Inactive Member Role/Relationship Status Dates Dr. Florian Johns MD Primary care physician Active Start: January 18, 2025 End: January 18, 2025 Dr. Matthew Moyer MD Attending physician Active Start: January 18, 2025 End: January 18, 2025 Dr. Matthew Moyer MD Referring Provider Active Start: January 18, 2025 End: January 18, 2025 Source Comments (unrecognize d section and content) In the event this informatio n is protected by the Federal Confidentiality of Alcohol and Drug Abuse Patient Records regulations: The Federal rules restrict any use of the information to criminally investigate or prosecute any alcohol or drug abuse patient.[facility] the event this information is protected by the Federal Confidentiality of Alcohol and Drug Abuse Patient Records regulations: The Federal rules restrict any use of the information to criminally investigate or prosecute any alcohol or drug abuse patient.[facility] the event this information is protected by the Federal Confidentiality of Alcohol and Drug Abuse Patient Records regulations: The Federal rules restrict any use of the information to criminally investigate or prosecute any alcohol or drug abuse patient.[facility] Hospital[facility] the event this information is protected by the Federal Confidentiality of Alcohol and Drug Abuse Patient Records regulations: The Federal rules restrict any use of the information to criminally investigate or prosecute any alcohol or drug abuse patient.[facility] Hospital[facility] the event this information is protected by the Federal Confidentiality of Alcohol and Drug Abuse Patient Records regulations: The Federal rules restrict any use of the information to criminally investigate or prosecute any alcohol or drug abuse patient.[facility] Hospital[facility] the event this information is protected by the Federal Confidentiality of Alcohol and Drug Abuse Patient Records regulations: The Federal rules restrict any use of the information to criminally investigate or prosecute any alcohol or drug abuse patient.[facility] Hospital[facility] the event this information is protected by the Federal Confidentiality of Alcohol and Drug Abuse Patient Records regulations: The Federal rules restrict any use of the information to criminally investigate or prosecute any alcohol or drug abuse patient.[facility] Reason for Visit (unrecogniz ed section [...] BE BASED ON THE PRIMARY CLINICAL RECORDS. [employer] [facility]. provides no warranty or guarantee of the accuracy or completeness of information in this document.
[2025-02-28 08:46] LABS: Hematocrit 37.5 % (37-47); Hemoglobin 12.1 g/dL (12.0-15.0); Immature Granulocytes Count 0.010 X10^3/uL (0.0-0.0); Mean Corp Hgb Conc 32.3 g/dL (32-36); Mean Corpuscular Volume 91.0 fL (81-99); Mean Platelet Vol. 9.7 fl (6.2-12.0); NRBC Flagged by Analyzer 0 % (0-5); Platelet Count 325 K/mm3 (150-450); RBC Distribution Width CV 13.4 % (11.6-14.6); RBC Distribution Width SD 45.1 fl (35.1-43.9); Red Blood Count 4.12 M/mm3 (4.2-5.4); White Blood Count 4.8 K/mm3 (4.4-11.0)
--- NOTE | 2025-02-28 09:02 | ED.VIS.GI ---
HPI HPI - GI History of Present Illness Chief Complaint: Abd Pain Informant: patient Narrative Narrative: Patient is a 49-year-old female presents sudden onset of right lower quad abdominal pain. Woke her up from sleep proximately hour ago. States that sharp and constant. Does radiate around to her right flank slightly. Has associated nausea, some urinary urgency and feels clammy. Did not take any for pain prior to arrival. States her last bowel movement was 2 days ago and normal. Has otherwise been in her normal state of health. No fevers reported. No history of kidney stones. No other complaints or concerns reported at this time. [facility] Medical History Thyroid disease Non-smoker History of edema Alcohol use Migraine headache Leg cramps History of echocardiogram History of stress test Cardiology follow-up encounter Wears glasses Nonhealing surgical wound Excessive weight loss Intertrigo Shoulder pain Chronic thoracic back pain Chronic neck pain Macromastia Anxiety and depression Hyperlipidemia Gout Obstructive sleep apnea Obesity Hypertension Type 2 diabetes mellitus without complications Home Medications Medication Instructions Recorded Last Taken Type levothyroxine 88 mcg tablet 88 mcg PO DAILY thyroid 06/17/13 01/17/25 History allopurinol 100 mg tablet 100 mg PO DAILY 06/10/24 01/17/25 History bupropion HCl 300 mg 24 hr tablet, 300 mg PO DAILY 06/10/24 01/17/25 History extended release meloxicam 15 mg tablet 15 mg PO DAILY 06/10/24 01/17/25 History ibuprofen 600 mg tablet 600 mg PO Q6H PRN PRN pain #20 02/28/25 Unknown Rx TABLETS ondansetron 4 mg disintegrating 4 mg PO Q8H PRN PRN Nausea #10 tabs 02/28/25 Unknown Rx tablet oxycodone 5 mg tablet 5 mg PO Q6H PRN pain 3 days #12 02/28/25 Unknown Rx tabs Allergy/AdvReac Type Severity Reaction Status Date / Time No Known Allergies Allergy Verified 02/28/25 08:08 Family History Mother CAD (coronary artery disease) MS age 47 Hypertension Brother Hypertension Diabetes Other Arthritis Surgical History History of tubal ligation Hx of hand surgery History of bilateral breast reduction surgery History of gastric bypass History of carpal tunnel release Social History Smoking Status: Never smoker alcohol intake: current alcohol intake frequency: holidays/special occasions only substance use type: does not use additional social history: DOES NOT TAKE IBUPROFEN DOES TAKE ASPIRIN NEEDED ROS ROS ED Constitutional Constitutional ED: Reports sweats; Denies chills or fever(s) Cardiovascular Cardiovascular: Denies chest pain Respiratory/Chest Respiratory/Chest: Denies cough Gastrointestinal Gastrointestinal: Reports abdominal pain and nausea; Denies diarrhea or vomiting Genitourinary Genitourinary ED: Reports other Details: Mild sense of urinary urgency ; Denies dysuria or urinary frequency Musculoskeletal Musculoskeletal: Reports back pain; Denies arthralgias Integumentary Denies rash Neurologic Neurologic: Denies weakness Hematologic/Lymphatic Hematologic/Lymphatic: Denies easy bleeding or easy bruising EXAM Physical Exam Const Vital Signs: 02/28/25 08:00 02/28/25 10:22 02/28/25 12:57 Temperature 96.3 F L 98.7 F 98.7 F Temperature Source Temporal Oral Pulse Rate 70 76 60 Respiratory Rate 22 H 18 16 Blood Pressure 157/101 H 129/85 H 130/81 H Blood Pressure Mean 119 99 97 Pulse Ox 100 99 97 Oxygen Delivery Method Room Air Room Air Positive well nourished and well developed Constitutional Narrative: Uncomfortable appearing General Appearance ED: well developed HEENT Reports moist mucous membranes Neck supple Resp normal respiratory effort and clear to auscultation bilaterally Cardio regular rate and regular rhythm GI GI Narrative: Tenderness in the right lower quadrant lateral aspect. Did not highly reproducible direct palpation. No pain at McBurney's point. No mass appreciated. No hernia appreciated. No rebound tenderness. Back/Spine no CVA tenderness Back/Spine Narrative: Mild tenderness palpation of the right lumbar back approximate level of L 3/4. No midline tenderness. Extremity full ROM Neuro moves all extremities and no sensory deficits noted Sensorium / Orientation: alert Psych mental status grossly normal and thought process normal Skin Rashes: no rashes MDM MDM MDM Narrative Medical decision making narrative: Patient is evaluated for sudden onset of worsening right lower quadrant abdominal pain. Does radiate slightly to her flank. Upon arrival patient is mildly tachypneic and hypertensive however she appears uncomfortable. Differential includes renal colic, muscle skeletal pain, pyelonephritis lower suspicion for appendicitis given location of pain and presentation of it. Patient is initially given IV morphine and fluids for symptom control. She does require redosed with Dilaudid and Toradol for further pain control. CBC, CMP largely normal. Normal kidney function specifically. No leukocytosis. Urinalysis is consistent with ureterolithiasis as she has 10-25 red blood cells with some mild contamination. No significant signs of infection. Patient requires further pain control with another dose of Dilaudid in the emergency room. CT abdomen pelvis does show a 3 mm calcification at the distal right UVJ and some associated right hydronephrosis and perinephric stranding consistent with an obstructing kidney stone. No other acute abnormalities. There is an abnormality of her IUD and patient formed this for outpatient follow-up. She does have a right ovarian cyst as well however it is 2.5 cm and low suspicion for torsion based on the size. Patient does not achieve very good pain control in the emergency room. She is offered admission/transfer (we do not have urology coverage for inpatient pain management and inpatient neurology evaluation. She declines at this time. States she would rather go home especially as this still looks like it is soon to pass. Patient is given dose of oxycodone prior to discharge. Is given prescription for oxycodone as well as Motrin and Zofran for symptom control. Patient has been counseled on close return precautions and encouraged to return to the emergency room should she have worsening symptoms, have a fever or any other concerns. Is given outpatient urology referral. Lab Data Attestation: I reviewed the patient's lab results. Labs: Laboratory Results - last 24 hr 02/28/25 02/28/25 08:35 09:05 WBC 4.8 RBC 4.12 L Hgb 12.1 Hct 37.5 MCV 91.0 MCH 29.4 MCHC 32.3 RDW Std Deviation 45.1 H RDW Coeff of Calixto 13.4 Plt Count 325 MPV 9.7 Immature Gran % (Auto) 0.200 Neut % (Auto) 51.9 Lymph % (Auto) 27.6 Routt % (Auto) 17.8 H Eos % (Auto) 1.5 Baso % (Auto) 1.0 Absolute Neuts (auto) 2.5 Absolute Lymphs (auto) 1.33 Nucleated RBC % 0 Sodium 140 Potassium 3.7 Chloride 104 Carbon Dioxide 25.0 Anion Gap 11 BUN 20 H Creatinine 0.76 Estim Creat Clear Calc 103.82 Est GFR (MDRD) Non-Af 96 BUN/Creatinine Ratio 25.6 H Glucose 111 H Calcium 9.4 Total Bilirubin 0.23 AST 24 ALT 31 Alkaline Phosphatase 57 Total Protein 6.6 Albumin 4.1 Globulin 2.4 Albumin/Globulin Ratio 1.7 Urine Color Yellow Urine Clarity Sl. Cloudy Urine pH 6.0 Ur Specific Preston 1.020 Urine Protein 30 H Urine Glucose (UA) Normal Urine Ketones Negative Urine Occult Blood 250 H Urine Nitrite Negative Urine Bilirubin Negative Urine Urobilinogen Normal Ur Leukocyte Esterase Negative Urine RBC 10-25 SEEN Urine WBC 0-5 SEEN Ur Squamous Epith Cells 0-5 SEEN Urine Bacteria 1+ Urine Mucus 0 SEEN Radiography Diagnostic Testing: Clinical Impression(s) from Imaging Studies Abdomen/Pelvis CT 02/28/25 08:26 IMPRESSION: 1. A 3 mm calcification in the vicinity of the distal right ureter near the right UVJ may represent a ureteral stone. Mild right hydronephrosis with perinephric fat stranding is likely secondary to obstruction. 2. Nonobstructing punctate left nephrolithiasis. 3. Small hiatal hernia. 4. Postsurgical changes including a gastric bypass. 5. Rounded 2.5 cm low-density in the right adnexa probably represents an ovarian cyst. IUD within the uterus and appears distorted. Reading Location: [facility] Discharge Plan Triage Chief Complaint: Abd Pain ED Provider: Kanika Brown Dx/Rx/DC Orders Clinical Impression: Renal colic on right side, Ureterolithiasis Instructions: ED Kidney Stone with Pain Prescriptions: New ibuprofen 600 mg tablet 600 mg PO Q6H PRN PRN (Reason: pain) Qty: 20 0RF ondansetron 4 mg tablet,disintegrating 4 mg PO Q8H PRN PRN (Reason: Nausea) Qty: 10 0RF oxycodone 5 mg tablet 5 mg PO Q6H PRN (Reason: pain) 3 Days Qty: 12 0RF No Action levothyroxine 88 MCG tablet 88 mcg PO DAILY allopurinol 100 mg tablet 100 mg PO DAILY bupropion HCl 300 mg tablet extended release 24 hr 300 mg PO DAILY meloxicam 15 mg tablet 15 mg PO DAILY Primary Care Provider: Florian Johns Referrals: Tahira Barlow MD [Med Staff - Active Staff, Urology] Florian Johns MD [Primary Care Provider, Family Practice] Activity Restrictions/Additional Instructions: CT shows a 3 mm kidney stone on the right side that appears to be passing and causing your pain. At this time per discussion you would like to try to pass the stone at home and take oral pain medication. If you develop fever, have worsening pain and cannot handle the pain at home please do not hesitate to return to the emergency room. Your CT did showed an subtle finding of an abnormal shape to your IUD. Please follow-up with your wafer polisher for outpatient evaluation of this. Print Language: Botswanan Disposition Disposition: Home, Self Care Discharge Date/Time: 02/28/25 13:02
[2025-02-28 09:05] LABS: AST(SGOT) 24 U/L (<=31); Alanine Aminotransfer ALT/SGPT 31 U/L (<=34); Albumin, Serum 4.1 g/dL (3.5-5.0); Alkaline Phosphatase 57 U/L (35-104); Anion Gap 11 (5-15); BUN 20 mg/dL (4-19); BUN/Creat Ratio 25.6 RATIO (10-20); Calcium,Total 9.4 mg/dL (7.6-11.0); Carbon Dioxide 25.0 mmol/L (21.0-32.0); Chloride 104 mmol/L (98-108); Estimated Creatinine Clearance 103.82 ml/min (50-250); Globulin 2.4 g/dL (2.2-4.2); Glucose 111 mg/dL (70-99); Potassium 3.7 mmol/L (3.3-5.1)
[2025-02-28 09:15] LABS: Mucous, Urine 0 SEEN /hpf (<or=2+)
[2025-02-28] MEDS: HYDROmorphone 0.5 MG/0.5 ML SYRINGE IV (09:35)
[2025-02-28 09:42] LABS: Color, Urine Yellow (Yellow); Glucose, Dipstick Normal (Normal); Ketone-Dipstick Negative (Negative); Leukocyte Esterase-Dipstick Negative /ul (Negative); Nitrite-Dipstick Negative (Negative); Occult Blood-Urine 250 /ul (Negative); Protein-Dipstick 30 mg/dl (Negative); Specific Gravity, Urine 1.020 (1.002-1.030); Urine Bilirubin Dipstick Negative (Negative)
[2025-02-28 09:58] LABS: Red Blood Cells-Urine 10-25 SEEN /hpf (0-5); Squamous Epithelial Cells - UA 0-5 SEEN /hpf (5-10)
[2025-02-28 10:22] VITALS: BP 129/85; PULSE 76; RESP 18; TEMP 37.1; O2SAT 99
[2025-02-28] MEDS: 0.9% Normal Saline (1000mL) 1,000 ML 150 ML IV (11:11)
[2025-02-28 12:57] VITALS: BP 130/81; PULSE 60; RESP 16; TEMP 37.1; O2SAT 97
== END 2025-02-28 13:02 | disposition home or self-care (01) ==
PROVIDERS: Emergency Provider Emergency Medicine; PCP Family Medicine; Visit Provider Emergency Medicine
DX: N13.2 Hydronephrosis with renal and ureteral calculous obstruction (principal); I10 Essential (primary) hypertension; Z79.899 Other long term (current) drug therapy
CPT/HCPCS: 74176; 80053; 81001; 85025; 96361; 96374; 96375; 99283; A4216; J2405

== ENCOUNTER 2025-03-01 14:11 | Observation (INO) | payer OTHER, SELFPAY ==
[2025-03-01 14:11] VITALS: BP 146/93; PULSE 80; RESP 16; TEMP 36.4; O2SAT 100; BMI 31.0
[2025-03-01 14:29] LABS: Hematocrit 39.7 % (37-47); Hemoglobin 13.2 g/dL (12.0-15.0); Immature Granulocytes Count 0.050 X10^3/uL (0.0-0.0); Mean Corp Hgb Conc 33.2 g/dL (32-36); Mean Corpuscular Volume 91.1 fL (81-99); Mean Platelet Vol. 10.2 fl (6.2-12.0); NRBC Flagged by Analyzer 0 % (0-5); Platelet Count 368 K/mm3 (150-450); RBC Distribution Width CV 13.6 % (11.6-14.6); RBC Distribution Width SD 45.7 fl (35.1-43.9); Red Blood Count 4.36 M/mm3 (4.2-5.4); White Blood Count 11.7 K/mm3 (4.4-11.0)
--- NOTE | 2025-03-01 14:40 | CT_ITS ---
PROCEDURE: ABDOMEN/PELVIS WITHOUT CONT 03/01/2025 REASON FOR EXAM: PAIN, KNOWN KIDNEY STONE TECHNIQUE: Procedure Code: CTABDPEL Modality: CT Procedure: ABDOMEN/PELVIS WITHOUT CONT Noncontrast technique limits evaluation of the abdominal and pelvic viscera. Coronal and Sagittal reconstruction series were provided. One or more dose reduction techniques were used (e.g., Automated exposure control, adjustment of the mA and/or kV according to patient size, use of iterative reconstruction technique). RADIATION DOSE SUMMARY: DLP: 846.36 mGycm COMPARISON: CT abdomen/pelvis 02/28/2025 FINDINGS: Lung bases: The lung bases are clear. Mild dependent atelectasis. Liver: Normal in size. Normal morphology. Gallbladder: Cholelithiasis. No biliary ductal dilatation. Spleen: Unremarkable. Pancreas: Unremarkable. Adrenals: Unremarkable. Kidneys and urinary bladder: Normal in size. Mild right hydroureteronephrosis. The previously seen 3 mm right ureteral vesicular junction calculus has mildly advanced. Asymmetric right perinephric edema. The urinary bladder is nondistended, limiting evaluation. Bowel: Gastric bypass. Small hiatal hernia. Unremarkable duodenum. The small and large bowel are normal in caliber. No evidence of small bowel obstruction. Appendix: Unremarkable. Lymph nodes: Multiple nonspecific subcentimeter shotty mesenteric lymph nodes. No lymphadenopathy. Vasculature: No abdominal aortic aneurysm. Peritoneum / Retroperitoneum: Small amount of abdominopelvic ascites. Reproductive Organs: The uterus is present. Redemonstrated distorted intrauterine device at the uterine fundus. Right ovarian cyst. Bones: No aggressive osseous lesions. Degenerative changes of the visualized spine. CT/Abdomen/Pelvis without Cont IMPRESSION: 1. Mild advancement of previously seen 3 mm right ureterovesicular junction obs tructing calculus. Asymmetric mild right hydroureteronephrosis and right perinephric edema, slightly increased when comp ared to CT of the abdomen/pelvis 02/28/2025. 2. Interval increase in abdominopelvic ascites. 3. Cholelithiasis. 4. Redemonstrated distorted appearing intrauterine device. Reading Location: [facility]
[2025-03-01 14:45] LABS: Mucous, Urine 0 SEEN /hpf (<or=2+); Red Blood Cells-Urine 0 SEEN /hpf (0-5)
[2025-03-01] MEDS: 0.9% Normal Saline (1000mL) 1,000 ML 999 ML IV (14:46)
[2025-03-01 14:50] LABS: Color, Urine Yellow (Yellow); Glucose, Dipstick Normal (Normal); Ketone-Dipstick 5 mg/dl (Negative); Leukocyte Esterase-Dipstick Negative /ul (Negative); Nitrite-Dipstick Negative (Negative); Occult Blood-Urine Negative /ul (Negative); Protein-Dipstick 30 mg/dl (Negative); Specific Gravity, Urine 1.020 (1.002-1.030); Urine Bilirubin Dipstick Negative (Negative)
[2025-03-01 14:57] LABS: Squamous Epithelial Cells - UA 5-10 SEEN /hpf (5-10)
--- NOTE | 2025-03-01 15:14 | EX.ED.DYSGE1 ---
HPI History of Present Illness Chief Complaint: Flank Pain Narrative Narrative: Chief complaint and HPI: 49-year-old female presents for evaluation of right flank pain with known urolithiasis. History taken by patient as well as medical record. Patient states for the past several days she has been having right flank pain. She was seen in our emergency department on 02/28 for the same complaint. She was diagnosed with a 3 mm distal right ureter urolithiasis near the right UVJ. She was discharged home on ibuprofen, oxycodone, Zofran. Patient states she has continued to have pain which is why she presents. She denies any fever, chills, nausea, vomiting. Review of systems: See HPI Medications: As listed on the chart Allergies: As listed on the chart PFSH: Per chart Vital signs: As listed on the chart. Reviewed. Physical exam: Gen: A&O x3, NAD Head: Normocephalic, atraumatic Eyes: No sclera icterus, conjunctiva clear ENT: Moist mucous membranes CV: RRR, no murmurs, no peripheral edema Resp: Lungs CTA BL, no w/r/c GI: Abd soft, non-distended, [id number] reproduce pain, no r/r/g : No CVA tenderness Musc: Full ROM, no deformity Skin: Warm, dry Psych: Cooperative PFSH PFS Medical History Thyroid disease Non-smoker History of edema Alcohol use Migraine headache Leg cramps History of echocardiogram History of stress test Cardiology follow-up encounter Wears glasses Nonhealing surgical wound Excessive weight loss Intertrigo Shoulder pain Chronic thoracic back pain Chronic neck pain Macromastia Anxiety and depression Hyperlipidemia Gout Obstructive sleep apnea Obesity Hypertension Type 2 diabetes mellitus without complications Home Medications ?Medication ?Instructions ?Recorded ?Last Taken ?Type levothyroxine 88 mcg tablet 88 mcg PO DAILY thyroid 06/17/13 02/28/25 History allopurinol 100 mg tablet 100 mg PO DAILY 06/10/24 02/28/25 History bupropion HCl 300 mg 24 hr tablet, 300 mg PO DAILY 06/10/24 02/28/25 History extended release meloxicam 15 mg tablet 15 mg PO DAILY 06/10/24 02/28/25 History ibuprofen 600 mg tablet 600 mg PO Q6H PRN PRN pain #20 02/28/25 03/01/25 08:00 Rx TABLETS ondansetron 4 mg disintegrating 4 mg PO Q8H PRN PRN Nausea #10 tabs 02/28/25 02/28/25 Rx tablet oxycodone 5 mg tablet 5 mg PO Q6H PRN pain 3 days #12 02/28/25 03/01/25 08:00 Rx tabs tizanidine 2 mg tablet 2 mg PO Q6H PRN 03/01/25 02/28/25 History Allergy/AdvReac Type Severity Reaction Status Date / Time No Known Allergies Allergy Verified 03/01/25 14:12 Family History Mother CAD (coronary artery disease) [place] age 47 Hypertension Brother Hypertension Diabetes Other Arthritis Surgical History History of tubal ligation Hx of hand surgery History of bilateral breast reduction surgery History of gastric bypass History of carpal tunnel release Social History Smoking Status: Never smoker alcohol intake: current alcohol intake frequency: holidays/special occasions only substance use type: does not use additional social history: DOES NOT TAKE IBUPROFEN DOES TAKE ASPIRIN NEEDED EXAM Physical Exam Const Vital Signs: 03/01/25 14:11 Temperature 97.5 F L Temperature Source Temporal Pulse Rate 80 Respiratory Rate 16 Blood Pressure 146/93 H Blood Pressure Mean 110 Pulse Ox 100 Oxygen Delivery Method Room Air MDM MDM MDM Narrative Medical decision making narrative: 49-year-old female presents for evaluation of right flank pain with known urolithiasis. History taken by patient as well as medical record. Patient states for the past several days she has been having right flank pain. She was seen in our emergency department on 02/28 for the same complaint. She was diagnosed with a 3 mm distal right ureter urolithiasis near the right UVJ. She was discharged home on ibuprofen, oxycodone, Zofran. Differential diagnosis includes but is not limited to urolithiasis, hydronephrosis, UTI, pyelonephritis, electrolyte abnormality, ROHITH. NS bolus, Zofran, morphine ordered for symptoms. Laboratory workup ordered including CT abdomen and pelvis without contrast to assess if stone migrated. CBC with mild leukocytosis 11.7. No anemia. UA positive for ketones but negative for blood or UTI. No bacteria. CMP with ROHITH with creatinine of 1.27. Was 0.76 on 01/28. CT abdomen pelvis shows mild advancement of previously 3 mm right UVJ obstructing calculus. Asymmetrical mild right hydronephrosis and right perinephric edema, slightly increased to prior. Interval increase in abdominal pelvic ascites. On reevaluation, patient still having flank pain. IV Toradol ordered. Given patient is failing outpatient management with now ROHITH, patient will warrant admission. Will reach out to urology. Dr. Saha personally reviewed the imaging. Recommend admission for pain control. Patient was updated on the results of her and understand the plan. Impression: 1. Right sided urolithiasis 2. Right hydronephrosis and right perinephric edema Lab Data Labs: Laboratory Results - last 24 hr 03/01/25 03/01/25 14:18 14:41 WBC 11.7 H RBC 4.36 Hgb 13.2 Hct 39.7 MCV 91.1 MCH 30.3 MCHC 33.2 RDW Std Deviation 45.7 H RDW Coeff of Calixto 13.6 Plt Count 368 MPV 10.2 Immature Gran % (Auto) 0.400 Neut % (Auto) 81.0 H Lymph % (Auto) 9.3 L [place] % (Auto) 8.6 Eos % (Auto) 0.3 Baso % (Auto) 0.4 Absolute Neuts (auto) 9.4 H Absolute Lymphs (auto) 1.08 Nucleated RBC % 0 Sodium 136 Potassium 4.1 Chloride 101 Carbon Dioxide 25.7 Anion Gap 10 BUN 14 Creatinine 1.27 H Estim Creat Clear Calc 62.35 Est GFR (MDRD) Non-Af 52 L BUN/Creatinine Ratio 10.8 Glucose 122 H Calcium 9.5 Total Bilirubin 0.26 AST 31 ALT 30 Alkaline Phosphatase 64 Total Protein 7.0 Albumin 4.3 Globulin 2.7 Albumin/Globulin Ratio 1.6 Urine Color Yellow Urine Clarity Clear Urine pH 6.0 Ur Specific [place] 1.020 Urine Protein 30 H Urine Glucose (UA) Normal Urine Ketones 5 H Urine Occult Blood Negative Urine Nitrite Negative Urine Bilirubin Negative Urine Urobilinogen Normal Ur Leukocyte Esterase Negative Urine RBC 0 SEEN Urine WBC 0 SEEN Ur Squamous Epith Cells 5-10 SEEN Urine Bacteria 0 SEEN Urine Mucus 0 SEEN Radiography Diagnostic Testing: Clinical Impression(s) from Imaging Studies Abdomen/Pelvis CT 03/01/25 14:40 IMPRESSION: 1. Mild advancement of previously seen 3 mm right ureterovesicular junction obstructing calculus. Asymmetric mild right hydroureteronephrosis and right perinephric edema, slightly increased when compared to CT of the abdomen/pelvis 02/28/2025. 2. Interval increase in abdominopelvic ascites. 3. Cholelithiasis. 4. Redemonstrated distorted appearing intrauterine device. Reading Location: [facility] Discharge Plan Triage Chief Complaint: Flank Pain ED Provider: Chino Chamberlain Dx/Rx/DC Orders Prescriptions: No Action levothyroxine 88 MCG tablet 88 mcg PO DAILY tizanidine 2 mg tablet 2 mg PO Q6H PRN allopurinol 100 mg tablet 100 mg PO DAILY bupropion HCl 300 mg tablet extended release 24 hr 300 mg PO DAILY meloxicam 15 mg tablet 15 mg PO DAILY ibuprofen 600 mg tablet 600 mg PO Q6H PRN PRN (Reason: pain) Qty: 20 0RF ondansetron 4 mg tablet,disintegrating 4 mg PO Q8H PRN PRN (Reason: Nausea) Qty: 10 0RF oxycodone 5 mg tablet 5 mg PO Q6H PRN (Reason: pain) 3 Days Qty: 12 0RF Primary Care Provider: Florian Johns Referrals: Florian Johns MD [Primary Care Provider, Family Practice] Print Language: Turkmen
[2025-03-01 15:20] LABS: AST(SGOT) 31 U/L (<=31); Alanine Aminotransfer ALT/SGPT 30 U/L (<=34); Albumin, Serum 4.3 g/dL (3.5-5.0); Alkaline Phosphatase 64 U/L (35-104); Anion Gap 10 (5-15); BUN 14 mg/dL (4-19); BUN/Creat Ratio 10.8 RATIO (10-20); Calcium,Total 9.5 mg/dL (7.6-11.0); Carbon Dioxide 25.7 mmol/L (21.0-32.0); Chloride 101 mmol/L (98-108); Estimated Creatinine Clearance 62.35 ml/min (50-250); Globulin 2.7 g/dL (2.2-4.2); Glucose 122 mg/dL (70-99); Potassium 4.1 mmol/L (3.3-5.1)
[2025-03-01 16:11] VITALS: BP 145/96; PULSE 76; O2SAT 100
--- NOTE | 2025-03-01 16:35 | PCM.HP.STD ---
HPI - General General Date of Service: 03/01/25 Chief Complaint: Right Kidney stone HPI Narrative OSVALDO MCCLURE, is a 49 F who presents To the hospital with severe intractable pain on the right side Pain is not been under control no fever or chillp Repeat CT scan, Camelia, the very small stone of distal Or emancipation to the hospital for pain control Patients being controlled was not able to be done in the emergency room so the ER asked me to med the patient for being controlled possible intervention [facility] Medical History Thyroid disease Non-smoker History of edema Alcohol use Migraine headache Leg cramps History of echocardiogram History of stress test Cardiology follow-up encounter Wears glasses Nonhealing surgical wound Excessive weight loss Intertrigo Shoulder pain Chronic thoracic back pain Chronic neck pain Macromastia Anxiety and depression Hyperlipidemia Gout Obstructive sleep apnea Obesity Hypertension Type 2 diabetes mellitus without complications Home Medications ?Medication ?Instructions ?Recorded ?Last Taken ?Type levothyroxine 88 mcg tablet 88 mcg PO DAILY thyroid 06/17/13 02/28/25 History allopurinol 100 mg tablet 100 mg PO DAILY 06/10/24 02/28/25 History bupropion HCl 300 mg 24 hr tablet, 300 mg PO DAILY 06/10/24 02/28/25 History extended release meloxicam 15 mg tablet 15 mg PO DAILY 06/10/24 02/28/25 History ibuprofen 600 mg tablet 600 mg PO Q6H PRN PRN pain #20 02/28/25 03/01/25 08:00 Rx TABLETS ondansetron 4 mg disintegrating 4 mg PO Q8H PRN PRN Nausea #10 tabs 02/28/25 02/28/25 Rx tablet oxycodone 5 mg tablet 5 mg PO Q6H PRN pain 3 days #12 02/28/25 03/01/25 08:00 Rx tabs tizanidine 2 mg tablet 2 mg PO Q6H PRN 03/01/25 02/28/25 History Allergy/AdvReac Type Severity Reaction Status Date / Time No Known Allergies Allergy Verified 03/01/25 14:12 Family History Mother CAD (coronary artery disease) [place] age 47 Hypertension Brother Hypertension Diabetes Other Arthritis Surgical History History of tubal ligation Hx of hand surgery History of bilateral breast reduction surgery History of gastric bypass History of carpal tunnel release Social History Smoking Status: Never smoker alcohol intake: current alcohol intake frequency: holidays/special occasions only substance use type: does not use additional social history: DOES NOT TAKE IBUPROFEN DOES TAKE ASPIRIN NEEDED Vital Signs Vital Signs Vital Signs: 03/01/25 14:11 03/01/25 16:11 Temperature 97.5 F L Temperature Source Temporal Pulse Rate 80 76 Respiratory Rate 16 Blood Pressure 146/93 H 145/96 H Blood Pressure Mean 110 112 Pulse Ox 100 100 Oxygen Delivery Method Room Air Room Air Weight Weight: 89.857 kg Body Mass Index (BMI) 31.0 Physical Exam Const alert and oriented x3 General Appearance: cooperative HEENT normocephalic and head/scalp atraumatic Eyes PERRL and EOMs intact bilaterally Neck supple, no JVD and no carotid bruits Resp normal respiratory effort, normal air movement and clear to auscultation bilaterally Cardio regular rate and no murmurs GI normal to inspection, nondistended, normoactive bowel sounds and soft to palpation Extremity normal capillary refill General Extremity: no tenderness to palpation of joints or extremities; Negative for edema Skin no rashes or lesions noted and no wounds General Skin Exam: no breakdown Neuro CN's II-XII intact bilaterally Psych affect normal Appearance: appropriate Results Lab / Micro Data 03/01/25 14:18 03/01/25 14:18 Labs: Laboratory Results - last 24 hr 03/01/25 14:18: WBC 11.7 H, RBC 4.36, Hgb 13.2, Hct 39.7, MCV 91.1, MCH 30.3, MCHC 33.2, RDW Std Deviation 45.7 H, RDW Coeff of Calixto 13.6, Plt Count 368, MPV 10.2, Immature Gran % (Auto) 0.400, Neut % (Auto) 81.0 H, Lymph % (Auto) 9.3 L, [place] % (Auto) 8.6, Eos % (Auto) 0.3, Baso % (Auto) 0.4, Absolute Neuts (auto) 9.4 H, Absolute Lymphs (auto) 1.08, Nucleated RBC % 0, Sodium 136, Potassium 4.1, Chloride 101, Carbon Dioxide 25.7, Anion Gap 10, BUN 14, Creatinine 1.27 H, Estim Creat Clear Calc 62.35, Est GFR (MDRD) Non-Af 52 L, BUN/Creatinine Ratio 10.8, Glucose 122 H, Calcium 9.5, Total Bilirubin 0.26, AST 31, ALT 30, Alkaline Phosphatase 64, Total Protein 7.0, Albumin 4.3, Globulin 2.7, Albumin/Globulin Ratio 1.6 03/01/25 14:41: Urine Color Yellow, Urine Clarity Clear, Urine pH 6.0, Ur Specific [place] 1.020, Urine Protein 30 H, Urine Glucose (UA) Normal, Urine Ketones 5 H, Urine Occult Blood Negative, Urine Nitrite Negative, Urine Bilirubin Negative, Urine Urobilinogen Normal, Ur Leukocyte Esterase Negative, Urine RBC 0 SEEN, Urine WBC 0 SEEN, Ur Squamous Epith Cells 5-10 SEEN, Urine Bacteria 0 SEEN, Urine Mucus 0 SEEN Imaging Radiology Impression Abdomen/Pelvis CT 03/01/25 14:40 IMPRESSION: 1. Mild advancement of previously seen 3 mm right ureterovesicular junction obstructing calculus. Asymmetric mild right hydroureteronephrosis and right perinephric edema, slightly increased when compared to CT of the abdomen/pelvis 02/28/2025. 2. Interval increase in abdominopelvic ascites. 3. Cholelithiasis. 4. Redemonstrated distorted appearing intrauterine device. Reading Location: [id number] Assessment & Plan Assessment/Plan (1) Renal colic on right side: PLAN: Plan right placement tomorrow (2) Ureterolithiasis:
[2025-03-01 16:51] VITALS: BP 145/96; PULSE 76; RESP 16; TEMP 36.8; O2SAT 100
[2025-03-01 16:52] VITALS: BP 128/87; PULSE 77; RESP 16; TEMP 37; O2SAT 99
[2025-03-01 17:45] VITALS: BMI 30.2
[2025-03-01 17:52] VITALS: BP 148/90; PULSE 88; RESP 18; TEMP 36.8; O2SAT 97
--- OUTSIDE RECORDS SUMMARY | 2025-03-01 19:50 | XMS RPT_ITS | CCD ---
Author Organization [facility] CliniSyok Care Team Providers Care Clinical Genetics Laboratory Chief Name Role Phone SUNDAR GUARDADO MD Unavailable [...] er Dr. Matthew Moyer MD Attending Provider [phone] Dr. Matthew Moyer MD Referring Provider [phone] YASMIN KEE Attending Unavail able JOHN, LUIS [...] Andreas LOVE, Dr. Du Primary Care Physician João LOVE, Dr. Castro Attending Physician Dr. Matthew Moyer MD Referring Provider Medications Current Medications Medication Drug Class(es) Dates [...] tablet by alexander th once daily. levonorgestrel 0.685539 mg/hr intrauterine system (7 sources) Progestin, Progestin-containing [...] 09, 2024 11:00pm Complies with drug therapy Hi-Er-Jzbl-Fa-Ca Carb-Vit K (8 sources) Start: 02-10-20 Ii-Sj-Euvw-Fa-Ca Carb-Vit K Active 1 EACH PO DAILY February 10, 2020 2:09pm Start: 02-10-2020 Ul-Ax-Mnuk-Fa- Ca Carb-Vit K Active 1 EACH PO DAILY February 10, 2020 1:00am Start: 02-10-2020 Rl-Un-Erov-Fa- Ca Carb-Vit K Active 1 EACH PO [...] 18, 2017 12:00am September 24, 2019 3:16pm Tg-Mv-Vlfy-Fa-Ca Carb-Vit K 1 EACH tablet (3 sources) Start: 0 End: 5 take 1 tablet by mouth once daily Hl-Zr-Pwsd-Fa-Ca Carb-Vit K 1 EACH tablet Discontinued 1 NMA PO DAILY February 10, 2020 12:00am June 10, 2024 7:10am vitamin Start: 02-10-2020 End: 06-10-2024 take 1 tablet by mouth once daily Ff-Pd-Kjiu-Fa-Ca Carb-Vit K 1 EACH tablet Discontinued 1 NMA PO DAILY February 10, 2020 1:00am June 10, 2024 8:10am vitamin Start: 02-10-2020 End: 06-10-2024 take 1 tablet by mouth once daily Ly-Ye-Esfs-Fa-Ca Carb-Vit K 1 EACH tablet Discontinued 1 [...] on 01-18-2025 Fluor Guidance for Spine Inj [facility] Imaging Services [address] [place] [address] [id number] Fluor Guidance for Spine Inj MR#: [id number] Acct: [id number] Name: NICOLASA CASTILLO Rep #: [id number] : 1975 F 49 From: Alberto Weiner PCP: Dr. Florian Johns MD Status: [facility] Study: Fluor Guidance for Spine Inj Date of Exam: Exam# [id number] Ordering Dr: Matthew Moyer MD PROCEDURE: FLUOR [...] fluoroscopic images were also obtained. Reading Location: [id number] CC: Dr. Matthew Moyer MD; Dr. Florian Johns MD Teletype Installer: Signed [facility] MR/POSTOP.ANEon 01-18-2025 MR/POSTOP.[facility] Medical Records Department [address] [place] [address] Anesthesia Postop Eval I 01/18/25 0805 MR#: [id number] Acct: [id number] Name: NICOLASA CASTILLO Rep #: [id number] : 1975 49 From: Rose Geiger CRNA PCP: Dr. Florian Johns MD Status:[facility] Y Race: C Location: [place] [address] Anesthesia: Postop Eval I Current Vital Signs Temperature: 98.2 F Pulse Rate: 72 Blood Pressure: 110/75 Respiratory Rate: 20 Pulse Ox: 98 Assessment Airway patent: Yes Spontaneous unlabored respirations: Yes nausea: No Vomiting: No Anesthesia Complication: No Fluid Hydration Crystalloid volume administer (ml): 200 Total IV fluid infused: 200 Progress Note Anesthesia document: Postop Eval 1 completed: Yes 01/18/25806 Date Rose Geiger SENIOR QA TESTER Cosigner Signature: Date CC: Signed [facility] MR/[id number] 01-18-2025 MR/POSTOPAN2 [facility] Medical Records Department [address] [place] [address] Anesthesia Postop Eval II 01/18/25 1237 MR#: [id number] Acct: [id number] Name: NICOLASA CASTILLO Rep #: [id number] : 1975 49 From: Jan Daniel MD PCP: Dr. Florian Johns MD Status:[facility] Y Race: C [place] [facility] Anesthesia Postop Eval I Sum Postop Eval Completion status Anesthesia document: Postop Eval 1 completed: Yes Anesthesia Postop Eval I Summary Anesthesia Postop Eval I Summary: Anesthesia Postop Eval I: Assessment Summary Airway patent Yes 01/18/25 08:06 SENIOR QA TESTER.CSIR Spontaneous unlabored Yes 01/18/25 08:06 SENIOR QA TESTER.CSIR respirations Mental status nausea No 01/18/25 08:06 SENIOR QA TESTER.CSIR Vomiting No 01/18/25 08:06 SENIOR QA TESTER.CSIR Anesthesia Postop Eval I: Fluid Summary Crystalloid volume administer 200 01/18/25 08:06 SENIOR QA TESTER.CSIR (ml) Colloids volume administered ( ml) Blood Product volume administered (ml) Total IV fluid infused 200 01/18/25 08:06 SENIOR QA TESTER.CSIR Anesthesia Postop Eval I: Summary Notes Anesthesia Complication No 01/18/25 08:06 SENIOR QA TESTER.CSIR Anesthesia Complication Comment: Post-operative progress note Anesthesia: Postop Eval II Evaluation Mental status: Awake Pain Level: 3 nausea: No Vomiting: No 01/18/25 1237 Date Jan Daniel MD Cosigner Signature: Date CC: Signed Normal [facility] OR-Steroid Inj/Cer Thor/1st Binu 01-18-2025 OR-Steroid Inj/Cer Thor/1st L [facility] Imaging Services [address] [place] [address] [id number] OR-Steroid Inj/Cer Thor/1st L MR#: [id number] Acct: [id number] Name: NICOLASA CASTILLO Rep #: [id number] : 1975 F 49 From: Alberto Weiner PCP: Dr. Florian Johns MD Status: [facility] Study: OR-Steroid Inj/Cer Thor/1st L Date of Exam: Exam# [id number] Ordering Dr: Matthew Moyer MD PROCEDURE: FLUOR [...] fluoroscopic images were also obtained. Reading Location: [id number] CC: Dr. Matthew Moyer MD; Dr. Florian Johns MD Teletype Installer: Signed Normal [facility] Operative Reporton 5 Operative Report [facility] Medical Records Department [address] [place] [address] Operative Report 01/18/25 0808 MR#: [id number] Acct: [id number] Name: NICOLASA CASTILLO Rep #: [id number] : 1975 49 From: Matthew Moyer MD PCP: Dr. Florian Johns MD Status:[facility] Location: [place] [address] Operative Report (Standard) Operative Information Date of Procedure: 01/18/25 Pre-Operative Diagnosis: Cervical radiculopathy, cervical spinal stenosis, cervical degenerative disc disease Post-Operative Diagnosis: Cervical radiculopathy, cervical spinal stenosis, cervical degenerative disc disease Surgery/Procedure Performed: Cervical epidural steroid injection interlaminar at C7-T1 under fluoroscopic guidance associate professor of history: No Type of Anesthesia: Local MAC RN [...] Moyer MD; Dr. Florian Johns MD Signed [facility] CNOVon 01-04-2025 CNOV Office Visit (OBGYWM ) NICOLASA CASTILLO ([id number]) 1975 F Date Time Provider Department 01/04/25 3:50 PM YASMIN KEE OBGYWM During your visit today, we recorded the following information about you: Blood pressure Weight Height 122/74 87.1 kg 1.72 m Yasmin Kee MD 01/04/2025 4:24 PM Signed Buttonhole Tacker offered: Patient declines. 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 PAST MEDICAL HISTORY Diagnosis Date Diabetes (HCC) Dysmetabolic syndrome Gout Hypercholesteremia Hypertension Hypothyroidism PAST SURGICAL HISTORY Procedure Laterality Date ASPIRATIONAND/INJECTIO N GANGLION CYST ANY LOCATJ Right 04/2023 removal cyst INSERTION OF IUD 07/03/2024 Rose PEREIRA 03/23/2013 Removed 07/03/24 by DM at [facility] OFFICE LEEP 02/13/2013 Negative PAST SURGICAL HISTORY OF 05/2017 gastric bi pass- [facility] REDUCTION OF LARGE BREAST Bilateral 2020 [...] discussed with the Patient or Patient's Authorized Commercial Loan Processor. As applicable, any other physician, advance practice provider, medical student, or other health professional student that will be observing or involved in the sensitive examination for educational or training purposes was discussed with the Patient or Authorized Commercial Loan Processor. The Patient or Authorized Commercial Loan Processor has agreed to proceed with the sensitive [...] external genitalia normal, normal Bartholin's glands, urethra, Hissop's glands, no vulvar lesions, no cervical lesions, [...] Other V (more content not included)... Normal [facility] Breast imaging reportOrdered By: Sherin Mas on 09-22-2024 Study report [facility] Imaging Services [address] [facility] [place] [address] SCRN MAMM (CAD)W/MARISOL BILAT MR#: [id number] Acct: [id number] Name: NICOLASA CASTILLO Rep #: [id number] : 1975 F 49 From: Nii Martinez MD PCP: Dr. Florian Johns MD Status: PRE C Study:SCRN MAMM (CAD)W/MARISOL BILAT Date of Exa m: 09/22/24 Exam# [id number] Ordering Dr: Yasmin Holden MD EXAM: SCRN [...] be mailed to the patient. Reading Location: [id number] CC: Dr Yasmin Crouch MD; Dr. Florian Johns MD ~ Teletype Installer: Signed [facility] SCRN MAMM (CAD)W/MARISOL BILATo n 09-22-2024 SCRN MAMM (CAD)W/MARISOL BILAT [facility] Imaging Services [address] [place], [place] [address] SCRN MAMM (CAD)W/MARISOL BILAT MR#: [id number] Acct: [id number] Name: NICOLASA CASTILLO Rep #: [id number] : 1975 F 49 From: Sherin Cardenas i, MD PCP: Dr. Florian Johns MD Status: PRE CLI Study: SCRN MAMM (CAD)W/MARISOL BILAT Date of Exam: 08/31 07/24 Exam# [id number] Ordering Dr: Chauhan MD EXAM: SCRN MAMM [...] be mailed to the patient. Reading Location: [id number] CC: Dr Yasmin Crouch MD; Dr. Florian Johns MD Teletype Installer: Signed Normal [facility] Cerv Spine Obl/Flex/Ext Comp on 07-27-2024 Cerv Spine Obl/Flex/Ext Comp [facility] Imaging Services [address] [place] [address] Cerv Spine Obl/Flex/Ext Comp MR#: [id number] Acct: [id number] Name: NICOLASA CASTILLO Rep #: [id number] : 1975 F 49 From: Chin Power MD PCP: Dr. Florian Johns MD Status: REG CLI Study: Cerv Spine Obl/Flex/Ext Comp Date of Exam: Exam# [id number] Ordering Dr: Matthew Moyer MD PROCEDURE: CERV [...] IMPRESSION: NEGATIVE CERVICAL SPINE. Disclaimer: Reading Location: [facility] CC: Dr. Matthew Moyer MD; Dr. Florian Johns MD Teletype Installer: Signed [facility] 07-09-2024 [facility] Telephone (OBGYWM) NICOLASA CASTILLO ([id number]) 1975 F Date Time Provider Department 07/09/24 [...] Status:Closed by JENN REYNOLDS on 07/09/24 Normal [facility] Anion gap in Serum or Plasma Ordered By: Yasmin Crouch on 07-03-2024 Anion gap [Moles/Vol] 12 mmol/L 5-15 [facility] BUN/creatinine ratioOrdered By: Yasmin Crouch on 07-03-2024 Urea nitrogen/Creatinine [Mass ratio] 31.6 mg/mg High 10-20 [facility] Basic Metabolic Profile (BMP )on 07-03-2024 BUN/CRE 31.6 RATIO High - [facility] Comment on above: Performed By: #### L 501.9520, L500.2500, L400.7600 #### [facility] Laboratory [address] [place], [address] Calcium [Mass/Vol] 9.2 mg/dL Normal 7.6-11.0 [facility] Comment on above: Performed By: #### L 501.9520, L500.2500, L400.7600 #### [facility] Laboratory [address] [place], [address] Chloride [Moles/Vol] 108 mmol/L Normal 98-108 [facility] Comment on above: Performed By: #### L 501.9520, L500.2500, L400.7600 #### [facility] Laboratory [address] [place], [address] CO2 [Moles/Vol] 22.5 mmol/L Normal 21.0-32.0 [facility] Comment on above: Performed By: #### L 501.9520, L500.2500, L400.7600 #### [facility] Laboratory [address] [place], [address] Creatinine [Mass/Vol] 0.66 mg/dL Low 0.70-1.20 [facility] Comment on above: Performed By: #### L 501.9520, L500.2500, L400.7600 #### [facility] Laboratory [address] [place], [address] ECRCL 119.64 ml/min Normal 50-250 [facility] Comment on above: Performed By: #### L 501.9520, L500.2500, L400.7600 #### [facility] Laboratory [address] [place], [address] GAP 12 Normal 5-15 [facility] Comment on above: Performed By: #### L 501.9520, L500.2500, L400.7600 #### [facility] Laboratory [address] [place], [address] GFR/1.73 sq M.predicted among non-blacks MDRD (S/P/Bld) [Vol rate/Area] 108 mL/min/{1.73_m2} Normal >60 [facility] Comment on above: Result Comment: mL/m in/1.73m2 CKD-EPI Creatinine Equation (2020) Performed By: #### L 501.9520, L500.2500, L400.7600 #### [facility] Laboratory [address] [place], [address] Glucose [Mass/Vol] 94 mg/dL Normal 70-99 [facility] Comment on above: Performed By: #### L 501.9520, L500.2500, L400.7600 #### [facility] [address] [place], [address] Potassium [Moles/Vol] 3.9 mmol/L Normal 3.3-5.1 [facility] Comment on above: Performed By: #### L 501.9520, L500.2500, L400.7600 #### [facility] [address] [place], [address] Sodium [Moles/Vol] 142 mmol/L Normal 133-145 [facility] Comment on above: Performed By: #### L 501.9520, L500.2500, L400.7600 #### [facility] [address] [place], [address] Urea nitrogen [Mass/Vol] 21 mg/dL High 4-19 [facility] Comment on above: Performed By: #### L 501.9520, L500.2500, L400.7600 #### [facility] Laboratory [address] [place], [address] CBC-Complete Blood Cnt No Di ffon 07-03-2024 Erythrocyte distribution width (RBC) [Ratio] 13.4 % Normal 11.6-14.6 [facility] Comment on above: Performed By: #### L 100.0500 #### [facility] Laboratory [address] [place], [address] Hematocrit (Bld) [Volume fraction] 33.4 % Low 37-47 [facility] Comment on above: Performed By: #### L 100.0500 #### [facility] Laboratory [address] [place], [address] Hemoglobin (Bld) [Mass/Vol] 11.0 g/dL Low 12.0-15.0 [facility] Comment on above: Performed By: #### L 100.0500 #### [facility] Laboratory [address] [place], [address] MCH (RBC) [Entitic mass] 29.3 pg Normal 27.0-32.0 [facility] Comment on above: Performed By: #### L 100.0500 #### [facility] Laboratory [address] [place], [address] MCHC (RBC) [Mass/Vol] 32.9 g/dL Normal 32-36 [facility] Comment on above: Performed By: #### L 100.0500 #### [facility] Laboratory [address] [place], [address] MCV (RBC) [Entitic vol] 88.8 fL Normal 81-99 [facility] Comment on above: Performed By: #### L 100.0500 #### [facility] [address] [place], [address] Platelet mean volume (Bld) [Entitic vol] 10.1 fL Normal 6.2-12.0 [facility] Comment on above: Performed By: #### L 100.0500 #### [facility] Laboratory [address] [place], [address] Platelets (Bld) [#/Vol] 246 10*3/uL Normal 150-450 [facility] Comment on above: Performed By: #### L 100.0500 #### [facility] [address] [place], [address] RBC (Bld) [#/Vol] 3.76 10*6/uL Low 4.2-5.4 [facility] Comment on above: Performed By: #### L 100.0500 #### [facility] [address] [place], [address] RDW SD 43.8 fl Normal 35.1-43.9 [facility] Comment on above: Performed By: #### L 100.0500 #### [facility] [address] [place], [address] WBC (Bld) [#/Vol] 3.9 10*3/uL Low 4.4-11.0 [facility] Comment on above: Performed By: #### L 100.0500 #### [facility] [address] [place], [address] Carbon dioxide, total [Moles /volume] in Central venous bloodOrdered By: Yamsin Crouch on 07-03-2024 CO2 [Moles/Vol] 22.5 mmol/L 21.0-32.0 [facility] Chloride assayOrdered By: Monte on 07-03-2024 Chloride [Moles/Vol] 108 mmol/L 98-108 [facility] Discharge Instructionon Discharge Instruction [facility] Medical Records Department [address] [place] [address] Instructions for Home/Discharge Instructions 07/03/24 0823 MR#: [id number] Acct: [id number] Name: NICOLASA CASTILLO Rep #: [id number] : 1975 49 From: Yasmin Crouch MD PCP: Dr. Florian Johns MD Status:[place] [facility] Discharge Instructions Diet Discharge Diet: No restrictions [...] if you need an appointment please call [phone] Test Results: Test results from this visit will be discussed in further detail at your follow-up appointment, if applicable. Discharge Plan Admission Attending Provider: Laura Crouch Primary Care Provider: Florian Johns Instructions Print Language: Singaporean Discharge Orders/Prescriptions Prescriptions: No Action levothyroxine 88 [...] CC: Dr. Florian Johns MD Signed Normal [facility] Erythrocyte distribution wid th (RBC) [Ratio]Ordered By: Yasmin Crouch on 07-03-2024 Erythrocyte distribution width (RBC) [Entitic vol] 43.8 fL 35.1-43.9 [facility] Erythrocyte distribution wid th ratioOrdered By: Yasmin Crouch on 07-03-2024 Erythrocyte distribution width (RBC) [Ratio] 13.4 % 11.6-14.6 [facility] Erythrocyte distribution wid th standard deviationOrdered By: Yasmin Jackson on 07-03-2024 Erythrocyte distribution width (RBC) [Ratio] 43.8 fl 35.1-43.9 [facility] Estimation of creatinine amanda aranceOrdered By: Yasmin Crouch on 07-03-2024 Estimated Creatinine Clearance Calc 119.64 ml/min 50-250 [facility] GFR/1.73 sq M.predicted ernie g non-blacks MDRD (S/P/Bld) [Vol rate/Area]Ordered By: Yasmin Crouch on 07-03-2024 Estimated GFR (MDRD) Non-Af Amer 108 >60 [facility] Comment on above: mL/min/1.73m2 CKD-EP I Creatinine Equation (2020) Glomerular filtration rate ( GFR) estimation/1.73 sq m using serum, plasma, or whole bOrdered By: Yasmin Crouch on 07-03-2024 GFR/1.73 sq M.predicted among non-blacks MDRD (S/P/Bld) [Vol rate/Area] 108 mL/min/{1.73_m2} >60 [facility] Comment on above: mL/min/1.73m2 CKD-EP I Creatinine Equation (2020) Hematocrit Auto (Bld) [Volum e fraction]Ordered By: Yasmin Crouch on 07-03-2024 Hematocrit (Bld) [Volume fraction] 33.4 % Low 37-47 [facility] Hemoglobin measurementOrdere d By: Yasmin Crouch on 07-03-2024 Hemoglobin (Bld) [Mass/Vol] 11.0 g/dL Low 12.0-15.0 [facility] MCV (mean corpuscular volume ) determinationOrdered By: Yasmin Crouch on 07-03-2024 MCV (RBC) [Entitic vol] 88.8 fL 81-99 [facility] MR/POSTOP.ANEon 07-03-2024 MR/POSTOP.ANE [facility] Medical Records Department [address] [place] [address] Anesthesia Postop Eval I 07/03/24 0931 MR#: [id number] Acct: [id number] Name: NICOLASA CASTILLO Rep #: [id number] : 1975 49 From: Tamela Desai CRNA PCP: Dr. Florian Johns MD Status:REG SDC Y Race: C Location: [place] [address] Anesthesia: Postop Eval I Current Vital Signs [...] 1 completed: Yes 07/03/2433 Date Tamela Desai SENIOR QA TESTER Cosigner Signature: Date CC: Signed Normal [facility] MR/[id number] 07-03-2024 MR/POSTOPAN2 [facility] Medical Records Department [address] [place] [address] Anesthesia Postop Eval II 07/03/24 1050 MR#: [id number] Acct: [id number] Name: NICOLASA CASTILLO Rep #: [id number] : 1975 49 From: Rose Geiger PCP: Dr. Florian Johns MD Status:REG SDC Y Race: C Location: [place] [address] Anesthesia Postop Eval I Sum Postop Eval Completion status Anesthesia document: Postop Eval 1 completed: Yes Anesthesia Postop Eval I Summary Anesthesia Postop Eval I Summary: Anesthesia Postop Eval I: Assessment Summary Airway patent Yes 07/03/24 09:33 SENIOR QA TESTER.LMIL Spontaneous unlabored Yes 07/03/24 09:33 SENIOR QA TESTER.LMIL respirations Mental status Awake 07/03/24 09:33 SENIOR QA TESTER.LMIL nausea No 07/03/24 09:33 SENIOR QA TESTER.LMIL Vomiting No 07/03/24 09:33 SENIOR QA TESTER.LMIL Anesthesia Postop Eval I: Fluid Summary Crystalloid volume administer 1,000 07/03/24 09:33 SENIOR QA TESTER.LMIL (ml) Colloids volume administered ( ml) Blood Product volume administered (ml) Total IV fluid infused 1,000 07/03/24 09:33 SENIOR QA TESTER.LMIL Anesthesia Postop Eval I: Summary Notes Anesthesia Complication No 07/03/24 09:33 SENIOR QA TESTER.LMIL Anesthesia Complication Comment: Post-operative progress note Anesthesia: Postop Eval II Evaluation Mental status: Awake Pain Level: 2 nausea: No Vomiting: No 07/03/24 1050 Date Rose De Santiago Signature: Date CC: Signed Normal [facility] Mean corpuscular hemoglobin (MCH) determinationOrdered By: Yasmin Jackson on 07-03-2024 MCH (RBC) [Entitic mass] 29.3 pg 27.0-32.0 [facility] Mean corpuscular hemoglobin concentration (MCHC) determinationOrdered By: Yasmin Crouch on 07-03-2024 MCHC (RBC) [Mass/Vol] 32.9 g/dL 32-36 [facility] Mean platelet volume determi nationOrdered By: Yasmin Crouch on 07-03-2024 Platelet mean volume (Bld) [Entitic vol] 10.1 fL 6.2-12.0 [facility] Operative Reporton 5 Operative Report [facility] Medical Records Department [address] [place] [place] [address] Operative Report 07/03/24 0913 MR#: [id number] Acct: [id number] Name: NICOLASA CASTILLO Rep #: [id number] : 1975 49 From: Yasmin Crouch MD PCP: Dr. Florian Johns MD Status:REG [facility] Location: [place] [address] Operative Report (Standard) Operative Information Date of Procedure: 07/03/24 Pre-Operative Diagnosis: desires sterilization, dysmenorrhea, heavy menses Post-Operative Diagnosis: same, Omental adhesions Surgery/Procedure Performed: IUD removal, IUD- liletta insertion, laparoscopic bilateral salpingectomy, Lysis of adhesions associate professor of history: No Type of Anesthesia: General and Local [...] MD; Dr. Florian Johns MD Signed Normal [facility] Platelet countOrdered By: Monte on 07-03-2024 Platelets (Bld) [#/Vol] 246 10*3/uL 150-450 [facility] Potassium (Unsp spec) [Mass/ Vol]Ordered By: Yasmin Crouch on 07-03-2024 Potassium [Moles/Vol] 3.9 mmol/L 3.3-5.1 [facility] Potassium measurement (mass/ volume)Ordered By: Yasmin Crouch on 07-03-2024 Potassium (Unsp spec) [Mass/Vol] 3.9 mmol/L 3.3-5.1 [facility] ,Urineon 07-03-2024 Beta HCG ( test) Ql (U) Negative Normal [facility] Comment on above: Result Comment: Very dilute urine specimens, as indicated by a low specific gravity, may not contain registration representative levels of hCG. If is still suspected, a first morning urine specimen should be collected 48 hours later and tested. Performed By: #### L 501.9520, L500.2500, L400.7600 #### [facility] Laboratory [address] [place], [address] RBC Auto (Bld) [#/Vol]Ordere d By: Yasmin Crouch on 07-03-2024 RBC (Bld) [#/Vol] 3.76 10*6/uL Low 4.2-5.4 [facility] Serum creatinine measurement (mass/volume)Ordered By: Yasmin Crouch on 07-03-2024 Creatinine [Mass/Vol] 0.66 mg/dL Low 0.70-1.20 [facility] Serum glucose measurement (m ass/volume)Ordered By: Yasmin Crouch on 07-03-2024 Glucose [Mass/Vol] 94 mg/dL 70-99 [facility] Serum or plasma calcium aby urement (mass/volume)Ordered By: Yasmin Jackson on 07-03-2024 Calcium [Mass/Vol] 9.2 mg/dL 7.6-11.0 [facility] Serum or plasma urea nitroge n measurement (mass/volume)Ordered By: Yasmin Crouch on 07-03-2024 Urea nitrogen [Mass/Vol] 21 mg/dL High 4-19 [facility] Sodium levelOrdered By: Saurav Crouch on 07-03-2024 Sodium [Moles/Vol] 142 mmol/L 133-145 [facility] Surgery Specimen Level IIon 07-03-2024 Surgery Specimen Level II ---- Patient Age/Sex Location Account Attending Physician ---- NICOLASA CASTILLO 49/F [facility] [id number] Dr Yasmin Crouch, ---- Specimen: [id number] Received: 07/03/24 Status: STEVENSON Reed Num: [id number] Spec Type: FALL TUBES Subm Dr: Dr [...] with a smooth and glistening inner lining. Commercial Loan Processor sections are submitted as follows:A1. First fallopian tube and fimbriated end with cystic structureA2. Second fallopian tube with fimbriated end [facility] 07-03-2024 CPT:71981 ---- Patient Age/Sex Location Account Attending Physician ---- NICOLASA CASTILLO 49/F [facility] [id number] Dr Yasminabelardo Crouch, ---- Signed (signature on file) Dr. Juany King MD 07/08/24 1707 ---- Normal [facility] Comment on above: Performed By: #### P SUII #### [facility] Laboratory [address] [place], [address] TSH DL <= 0.005 mIU/L QnOrde red By: Jan Daniel on 07-03-2024 Thyroid Stimulating Hormone (TSH) 2.140 uIU/mL 0.300-4.200 [facility] TSH Qn 2.140 uIU/mL 0.300-4.200 [facility] Thyroid Stim Hormone (TSH)on 07-03-2024 TSH 2.140 uIU/mL Normal 0.300-4.200 [facility] Comment on above: Performed By: #### L [id number], L500.2500, L400.4360 #### [facility] Laboratory [address] [place], [address] Urine testOrdered By: Jan Daniel on 07-03-2024 HCG ( test) Ql (U) Negative [facility] Comment on above: Very dilute urine sp ecimens, as indicated by a low specificgravity, may not contain registration representative levels of hCG. If is still suspected, a first morning urinespecimen should be collected 48 hours later and tested. 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 Florian Johns MD Status:[facility] Location: [place] [address] History and Physical Date of Admission: 07/03/24 [...] Negative ??? PAST SURGICAL HISTORY OF 05/2017 [facility] ??? REDUCTION OF LARGE BREAST Bilateral 2019 [...] IMPRESSION: 49yo desires sterilization and IUD - Malvinetta for menstrual regulation - h/o AUB and [...] on 06/09/2024 Note shared with patient 07/02/24 7294 Cosigner Signature (if applicable): CC: Dr Yasmin [...] Dr. Florian Johns MD * Signed Normal [facility] MR/PAT.GRISELon 06-10-2024 MR/PAT.ANE [facility] Medical Records Department [address] [place] [address] PAT - Anesthesia 06/10/24 1114 MR#: [id number] Acct: [id number] Name: NICOLASA CASTILLO Rep #: [id number] : 1975 49 From: Jan Daniel MD PCP: Dr. 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: Anesthesia History - yarn finisher Hx Hospitalization No 06/10/24 08:11 Any Problems [...] take am of surgery PONV PONV - yarn finisher: PONV - yarn finisher Female Yes 06/10/24 08:11 HX of Motion [...] 04/18/23 13:55 Respiratory Assessment Respiratory Assessment - yarn finisher: Respiratory Tract Infection Hx - yarn finisher Hx Respiratory Tract Infection No 06/10/24 08:11 STOP Sleep Apnea STOP Sleep Apnea - yarn finisher: STOP Sleep Apnea - yarn finisher Hx Hypertension Yes: NO MEDS SINCE 201706/10/24 [...] Tobacco Use History Tobacco Use History - yarn finisher: Tobacco Use History - yarn finisher Tobacco Use Smoking Status Never smoker 06/10/24 08:11 Hx Tobacco Use No 06/10/24 08:11 Years Smoking Packs Smoked per Day Smoking Cessation Date was within the last 15 years Hx Smoking Cessation Date Hx Smoking Cessation Counseling Hematologic Medial History Hematologic Hx - yarn finisher: 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 [facility] Office Visit (OBGYWM ) NICOLASA CASTILLO ([id number]) 1975 F Date Time Provider Department 06/09/24 [...] 02/13/2013 Negative PAST SURGICAL HISTORY OF 05/2017 [facility] REDUCTION OF LARGE BREAST Bilateral 2020 VAGINOSCOPY [...] Status:Closed by YASMIN JACKSON on 06/09/24 Normal [facility] HISTORY PHYSICALon HISTORY PHYSICAL HNO ID: [id number] Author: YASMIN KEE MD Service: ? Author [...] 02/13/2013 Negative PAST SURGICAL HISTORY OF 05/2017 [facility] REDUCTION OF LARGE BREAST Bilateral 2020 VAGINOSCOPY [...] salpingectomy and IUD removal and reinsertion with Malvinjesus Pt has been counseled on risks/benefits and alternatives of surgery including but not limited to anesthesia, bleeding, infection, injury to pelvic structures including bowel, bladder, ureters and vessels. Pt wishes to proceed with surgery at this time. Pre and post op instructions reviewed I have reviewed and updated past medical and surgical history, medications and allergies Yasmin Jackson MD [facility] CNOVon 04-21-2024 [facility] Office Visit (OBGYWM ) ANNANICOLASA Fournier ([id number]) 1975 F Date Time Provider Department 04/21/24 3:20 PM YASMIN KEE OBGYWM During your visit today, we recorded the following information about you: Blood pressure Weight 124/80 88 kg Yasmin Kee MD 04/21/2024 4:56 PM Signed Nicolasa Irlanda CanoAnna is a 49 year old female who presents for sterizlation consultation. Pt currently uses mirena and would like to consider Salpingectomy. Pt reports prior to mirena and gastric bypass menses were very irregular. Pt unsure if she wants to continue use of mirena. OB History T0 L0 SAB0 IAB0 Ectopic0 Multiple0 Live Births0 Regional Driver History LMP: 07/27/2014, IUD Age at Menarche: Age at First : Age at Menopause: Regional Driver History Comments: Sexual Activity: Yes; Male Contraception: I.U.D. PAST MEDICAL HISTORY Diagnosis Date Diabetes (HCC) Dysmetabolic syndrome Gout Hypercholesteremia Hypertension Hypothyroidism PAST SURGICAL HISTORY Procedure Laterality Date ASPIRATIONAND/INJECTIO N GANGLION CYST ANY LOCATJ Right 04/2023 removal cyst MIRENA 03/23/2013 OFFICE LEEP 02/13/2013 Negative PAST SURGICAL HISTORY OF 05/2017 gastric bi pass- formerly [facility] REDUCTION OF LARGE BREAST Bilateral 2020 [...] which included preparing to see the patient, [id number] patient care, completing clinical documentation, obtaining and/or reviewing separately obtained history, performing a medically appropriate examination, and counseling and educating the patient/family/[facility]. Yasmin Crouch MD Allergies As [...] Status:Closed by YASMIN JACKSON on 04/21/24 Normal [facility] Laboratory - Chemistry and C hemistry - challengeOrdered By: Jan Daniel on 04-18-2023 HCG ( test) Ql (U) Negative [facility] Comment on above: Very dilute urine sp ecimens, as indicated by a low specificgravity, may not contain registration representative levels of hCG. If is still suspected, a first morning urinespecimen should be collected 48 hours later and tested. Basophil percentageOrdered B y: Florian Johns on 02-22-2023 Chloride [Moles/Vol] 106 mmol/L 98-107 [facility] Cholesterol [Mass/Vol] 210 mg/dL <200 [facility] Comment on above: <200 mg/dL Desirable 200-240 mg/dL Borderline >240 mg/dL High Risk Glucose [Mass/Vol] 92 mg/dL 74-106 [facility] Potassium [Moles/Vol] 3.6 mmol/L 3.5-5.1 [facility] Sodium [Moles/Vol] 139 mmol/L 136-145 [facility] Triglyceride [Mass/Vol] 75 mg/dL <199 [facility] Comment on above: The drugs N-Acetylcy steine and Metamizole may falsely depress this assay.Serum Triglycerides Reference Interval Normal <150 mg/dL Borderline high 150 - 199 mg/dL High 200 - 499 mg/dL Very High > or = 500 mg/dL Laboratory - Chemistry and C hemistry - challengeOrdered By: Florian Johns on 02-22-2023 CO2 [Moles/Vol] 29.0 mmol/L 21.0-32.0 [facility] Free T4 [Mass/Vol] 0.92 ng/dL 0.76-1.46 [facility] Urea nitrogen/Creatinine [Mass ratio] 19.5 mg/mg 10-20 [facility] No Panel InformationOrdered By: Florian Johns on 02-22-2023 Estimated GFR (MDRD) Amer 103 mL/min >60 [facility] Comment on above: GFR Calc Estimated GFR (MDRD) Non-Af Amer 85 mL/min >60 [facility] Comment on above: Non- GFR Calc Free Triiodothyronine (T3) pg/dL 2.3 pg/mL 2.18-3.98 [facility] Thyroid Stimulating Hormone (TSH) 1.32 uIU/mL 0.358-3.74 [facility] Serum or plasma calcium aby urement (mass/volume)Ordered By: Florian Johns on 02-22-2023 Calcium [Mass/Vol] 8.8 mg/dL 8.5-10.1 [facility] Serum or plasma cholesterol in HDL measurement (mass/volume)Ordered By: Florian Johns on 02-22-2023 Cholesterol in HDL [Mass/Vol] 94 mg/dL >40 [facility] Comment on above: The drugs N-Acetylcy steine and Metamizole may falsely depress this assay. Reference Range HDL <40 mg/dL Low HDL Cholesterol HDL >or= 60 mg/dL High HDL Cholesterol Serum or plasma cholesterol in VLDL measurement (mass/volume)Ordered By: Florian Johns on 02-22-2023 Cholesterol in VLDL [Mass/Vol] 15 mg/dL 5-40 [facility] Serum or plasma creatinine m easurement (mass/volume)Ordered By: Florian Johns on 02-22-2023 Creatinine [Mass/Vol] 0.77 mg/dL 0.55-1.02 [facility] Comment on above: The validity of the calculated GFR & GFRAA in patients over 70 years has not been determined. Clinical correlation is essential. Serum or plasma low density lipoprotein (LDL) cholesterol measurement (mass/volume)Ordered By: Florian Johns on 02-22-2023 Cholesterol in LDL [Mass/Vol] 101 mg/dL 0-130 [facility] Serum or plasma urea nitroge n measurement (mass/volume)Ordered By: Florian Johns on 02-22-2023 Urea nitrogen [Mass/Vol] 15 mg/dL 7-18 [facility] Thin prep Papanicolaou smear with manual screeningOrdered By: Florian Johns on 02-22-2023 Thin prep Papanicolaou smear with manual screening 4 5-15 [facility] Absolute lymphocyte countOrd ered By: Dr. Johns on 08-06-2022 Lymphocytes Auto (Unsp spec) [#/Vol] 1.04 10*3/uL 0.83-4.51 [facility] Basophil percentageOrdered B y: Dr. Johns on 08-06-2022 Basophils/100 WBC (Bld) 1.2 % 0-1 [facility] Chloride [Moles/Vol] 106 mmol/L 98-107 [facility] Eosinophils/100 WBC (Bld) 1.8 % 0-5 [facility] Glucose [Mass/Vol] 89 mg/dL 74-106 [facility] Neutrophils (Bld) [#/Vol] 1.8 10*3/uL 2.0-7.7 [facility] Neutrophils/100 WBC (Bld) 53.1 % 47-70 [facility] Potassium [Moles/Vol] 3.8 mmol/L 3.5-5.1 [facility] Sodium [Moles/Vol] 141 mmol/L 136-145 [facility] WBC (Bld) [#/Vol] 3.3 10*3/uL 4.4-11.0 [facility] Blood erythrocytes count (nu mber/volume)Ordered By: Dr. Johns on 08-06-2022 RBC (Bld) [#/Vol] 4.03 10*6/uL 4.2-5.4 [facility] Blood hemoglobin measurement (mass/volume)Ordered By: Dr. Johns on 08-06-2022 Hemoglobin (Bld) [Mass/Vol] 12.5 g/dL 12.0-15.0 [facility] Blood lymphocytes/100 leukoc ytesOrdered By: Dr. Johns on 08-06-2022 Lymphocytes/100 WBC (Bld) 31.5 % 19-41 [facility] Blood monocytes/100 leukocyt esOrdered By: Dr. Johns on 08-06-2022 Monocytes/100 WBC (Bld) 12.4 % 0-10 [facility] Blood platelet mean volumeOr dered By: Dr. Johns on 08-06-2022 Platelet mean volume (Bld) [Entitic vol] 10.7 fL 6.2-12.0 [facility] Determination of erythrocyte mean corpuscular volume (MCV)Ordered By: Dr. Johns on 08-06-2022 MCV (RBC) [Entitic vol] 96.8 fL 81-99 [facility] Hematocrit Auto (Bld) [Volum e fraction]Ordered By: Dr. Johns on 08-06-2022 Hematocrit (Bld) [Volume fraction] 39.0 % 37-47 [facility] Laboratory - Chemistry and C hemistry - challengeOrdered By: Dr. Johns on 08-06-2022 CO2 [Moles/Vol] 29.0 mmol/L 21.0-32.0 [facility] Free T4 [Mass/Vol] 0.99 ng/dL 0.76-1.46 [facility] Urea nitrogen/Creatinine [Mass ratio] 23.1 mg/mg 10-20 [facility] Laboratory - Hematology and Cell countsOrdered By: Dr. Johns on 08-06-2022 Erythrocyte distribution width (RBC) [Entitic vol] 43.7 fL 35.1-43.9 [facility] Erythrocyte distribution width (RBC) [Ratio] 12.2 % 11.6-14.6 [facility] Immature granulocytes/100 WBC (Bld) 0.000 % 0.0-0.9 [facility] Comment on above: IG% - Immature Granu locytes (promyelocytes, myelocytes and metamyelocytes) > 1% indicates that a LEFT SHIFT is Present. MCH (RBC) [Entitic mass] 31.0 pg 27.0-32.0 [facility] Nucleated RBC/100 WBC (Bld) [Ratio] 0 % 0-5 [facility] ([facility]) [Mass/Vol]Or dered By: Dr. Johns on 08-06-2022 MCHC (RBC) [Mass/Vol] 32.1 g/dL 32-36 [facility] No Panel InformationOrdered By: Dr. Johns on 08-06-2022 Estimated GFR (MDRD) Amer 137 mL/min >60 [facility] Comment on above: GFR Calc Estimated GFR (MDRD) Non-Af Amer 113 mL/min >60 [facility] Comment on above: Non- GFR Calc Free Triiodothyronine (T3) pg/dL 2.2 pg/mL 2.18-3.98 [facility] Thyroid Stimulating Hormone (TSH) 1.83 uIU/mL 0.358-3.74 [facility] Platelets bldOrdered By: Dr. Johns on 08-06-2022 Platelets (Bld) [#/Vol] 265 10*3/uL 150-450 [facility] Serum or plasma calcium aby urement (mass/volume)Ordered By: Dr. Johns on 08-06-2022 Calcium [Mass/Vol] 9.0 mg/dL 8.5-10.1 [facility] Serum or plasma creatinine m easurement (mass/volume)Ordered By: Dr. Johns on 08-06-2022 Creatinine [Mass/Vol] 0.60 mg/dL 0.55-1.02 [facility] Comment on above: The validity of the calculated GFR & GFRAA in patients over 70 years has not been determined. Clinical correlation is essential. Serum or plasma urea nitroge n measurement (mass/volume)Ordered By: Dr. Johns on 08-06-2022 Urea nitrogen [Mass/Vol] 14 mg/dL 7-18 [facility] Thin prep Papanicolaou smear with manual screeningOrdered By: Dr. Johns on 08-06-2022 Thin prep Papanicolaou smear with manual screening 6 5-15 [facility] No Panel InformationOrdered By: Dr. Johns on 02-07-2022 Thyroid Stimulating Hormone (TSH) 1.20 uIU/mL 0.358-3.74 [facility] Laboratory - Chemistry and C hemistry - challengeon 08-29-2021 Free T4 [Mass/Vol] 1.12 ng/dL 0.76-1.46 [facility] Work Phone: [phone] No Panel Informationon 08-29 Free Triiodothyronine (T3) pg/dL 2.6 pg/mL 2.18-3.98 [facility] Work Phone: [phone] Thyroid Stimulating Hormone (TSH) 0.56 uIU/mL 0.358-3.74 [facility] Work Phone: [phone] Laboratory - Microbiology an d Antimicrobial susceptibilityon 08-04-2021 SARS-CoV-2 (COVID-19) RNA NICKO+probe Ql (Unsp spec) Detected Not Detect [facility] Work Phone: Comment on above: Normal Reference Ran ge: Not DetectedMethod:(RT-PCR) real-time reverse transcriptase PCRLuminex LISA Instrument*The Food and Drug Administration (FDA) has issued an Emergency Use Authorization (EAU) for the inFreeDA SARS-CoV-2 Assay for the rapid detection of [...] Panel Informationon 08-04 Respiratory Panel (PCR) [facility] Work Phone: [phone] Basophil percentageon 2021 Testosterone [Mass/Vol] 4 ng/dL [facility] Work Phone: [phone] Free testosterone percentage on 05-23-2021 Testosterone Free/Testosterone.total [Mass fraction] 1.71 % [facility] Work Phone: [phone] Comment on above: Performed at: [address] [id number] Director: Shyam Kaminski PhD, Phone: [phone] at: [address] [id number] Director: Patricia Washington MD, Phone: [phone] Serum or plasma testosterone free measurement (mass/volume)on 05-23-2021 Testosterone Free [Mass/Vol] 0.07 ng/dL [facility] Work Phone: Laboratory - Microbiology an d Antimicrobial susceptibilityon 05-17-2021 SARS-CoV-2 (COVID-19) RNA NICKO+probe Ql (Unsp spec) Not detected Not Detect [facility] Work Phone: Comment on above: Normal Reference Ran ge: Not DetectedMethod:(RT-PCR) real-time reverse transcriptase PCRLuminex inFreeDA Instrument*The Food and Drug Administration (FDA) has [...] Glucose mass conc 109 mg/dL High 65-99 [facility] Comment on above: Performed By: #### P LT ####[address] [address] Glucose mass conc 98 mg/dL Normal 65-99 [facility] Comment on above: Performed By: #### P LT ####[address] [address] Glucose mass conc 99 mg/dL Normal 65-99 [facility] Comment on above: Performed By: #### P CGL ####[address] [address] POCT GLUCOSEon 06-12-2017 Glucose mass conc 95 mg/dL Normal 65-99 [facility] Comment on above: Performed By: #### P CGL ####[facility] [address] [place] [address] Glucose mass conc 81 mg/dL Normal 65-99 [facility] Comment on above: Performed By: #### P CGL ####[facility] [address] [place] [address] Glucose mass conc 111 mg/dL High 65-99 [facility] Comment on above: Performed By: #### P CGL ####[facility] [address] [place] [address] Glucose mass conc 93 mg/dL Normal 65-99 [facility] Comment on above: Performed By: #### P CGL ####[facility] [address] [place] [address] Glucose mass conc 81 mg/dL Normal 65-99 [facility] Comment on above: Performed By: #### P CGL ####[facility] [address] [place] [address] UGI W KUBon 06-12-2017 UGI W KUB *FINAL Da te of Service: 06/12/2017 08:32 Adm #: [id number] Dr:KITTY DEE Signoff Dr: KITTY DEEPROCEDURE: UGI [...] using speech recognition. Original Interpreting Physician: KITTY EDE MDOriginleslye Transcribed by/Date: PSCB Jun 14 2017 10:58AOriginal Electronically Signed by/Date: KITTY DEE MD Jun 14 2017 10:58A Addendum Interpreting Physician: Addendum Transcribed by/Date: NO ADDENDUMAddendum Electronically Signed by/Date: Normal [facility] Consulton 06-11-2017 Consult Normal [facility] Discharge Summaryon 06-12-19 18 Discharge Summary Normal [facility] Operative Reporton 8 Operative Report Normal Count includes the [facility] PLATELETon 06-11-2017 Platelets Normal 150-450 [facility] Comment on above: Result Comment: 280P erformed at [facility] [address] [place] [address] Performed By: #### P LT ####[facility] [place] [address] POCT GLUCOSEon 06-11-2017 Glucose mass conc 144 mg/dL High 65-99 [facility] Comment on above: Performed By: #### P CGL ####[facility] [place] [address] Glucose mass conc 145 mg/dL High 65-99 [facility] Comment on above: Performed By: #### P CGL ####[facility] [place] [address] Glucose mass conc 112 mg/dL High 65-99 [facility] Comment on above: Performed By: #### P CGL ####[facility] [place] [address] Vital Signs Date Time Vital Sign Value Performing Clinician Faci lity 01-18-2025 08:20-0400 Body temperature 97 [degF] Dr. Florian Johns MD Work Phone: [facility] 01-18-2025 08:20-0400 Diastolic blood pressure 79 mm[Hg] Dr. Florian Johns MD Work Phone: [facility] 01-18-2025 08:20-0400 Heart rate 57 /min Dr. Florian Johns MD Work Phone: [facility] 01-18-2025 08:20-0400 Respiratory rate 16 /min Dr. Florian Johns MD Work Phone: [facility] 01-18-2025 08:20-0400 SaO2% (BldA) [Mass fraction] 99 % Dr. Florian Johns MD Work Phone: 1(404)[phone] [place] [address] 01-18-2025 08:20-0400 Systolic blood pressure 107 mm[Hg] Dr. Florian Johns MD Work Phone: [phone])861-145962 [place] [address] 01-18-2025 06:43-0400 Body height 170.[address] Florian Johns MD Work Phone: 2(400)126-807162 [place] [address] 01-18-2025 06:43-0400 Body mass index (BMI) [Ratio] 30.5 kg/m2 Dr. Florian Johns MD Work Phone: 3(488)317-253062 [place] [address] 01-18-2025 06:43-0400 Body weight 88.[address] Florian Johns MD Work Phone: 1(624)[phone] [place] [address] 07-03-2024 11:15-0400 Body temperature 98.3 [degF] Dr. Florian Johns MD Work Phone: 2(036)[phone] [place] [address] 07-03-2024 11:15-0400 Diastolic blood pressure 74 mm[Hg] Dr. Florian Johns MD Work Phone: 9(413)018-387462 [place] [address] 07-03-2024 11:15-0400 Heart rate 68 /min Dr. Florian Johns MD Work Phone: 2([phone])491-524962 [place] [address] 07-03-2024 11:15-0400 Respiratory rate 16 /min Dr. Florian Johns MD Work Phone: 6(252)278-868362 [place] [address] 07-03-2024 11:15-0400 SaO2% (BldA) [Mass fraction] 100 % Dr. Florian Johns MD Work Phone: 5([phone])115-961362 [place] [address] 07-03-2024 11:15-0400 Systolic blood pressure 120 mm[Hg] Dr. Florian Johns MD Work Phone: 7(715)091-669362 [place] [address] 07-03-2024 07:11-0400 Body height 170.[address] Florian Johns MD Work Phone: 2(357)602-551262 [place] [address] 07-03-2024 07:11-0400 Body mass index (BMI) [Ratio] 30.8 kg/m2 Dr. Florian Johns MD Work Phone: [facility] 07-03-2024 07:11-0400 Body weight 89.[address] Florian Johns MD Work Phone: [facility] 06-09-2024 16:11-0400 Body height 170.2 cm Yasmin Jackson MD Work Phone: [facility] 06-09-2024 16:11-0400 Body mass index (BMI) [Ratio] 31.01 kg/m2 Yasmin Jackson MD Work Phone: [facility] 06-09-2024 16:110400 Body weight 89.81 kg Yasmin Jackson MD Work Phone: [facility] 06-09-2024 16:11-0400 Diastolic blood pressure 72 mm[Hg] Yasmin Jackson MD Work Phone: [facility] 06-09-2024 16:11-0400 Systolic blood pressure 134 mm[Hg] Yasmin Jackson MD Work Phone: [facility] 04-21-2024 15:19-0500 Body mass index (BMI) [Ratio] 30.09 kg/m2 Yasmin Jackson MD Work Phone: [facility] 04-21-2024 15:19-0500 Body weight 88 kg Yasmin Jackson MD Work Phone: [facility] 04-21-2024 15:19-0500 Diastolic blood pressure 80 mm[Hg] Yasmin Jackson MD Work Phone: [facility] 04-21-2024 15:19-0500 Systolic blood pressure 124 mm[Hg] Yasmin Jackson MD Work Phone: [facility] 04-18-2023 17:10-0500 Body temperature 97.7 [degF] [facility] 04-18-2023 17:10-0500 Diastolic blood pressure 73 mm[Hg] [facility] 04-18-2023 17:10-0500 Heart rate 59 /min [facility] 04-18-2023 17:10-0500 Respiratory rate 16 /min [facility] 04-18-2023 17:10-0500 SaO2% (BldA) [Mass fraction] 100 % [facility] 04-18-2023 17:10-0500 Systolic blood pressure 125 mm[Hg] [facility] 04-18-2023 13:55-0500 Body height 172.72 cm [facility] 04-18-2023 13:55-0500 Body mass index (BMI) [Ratio] 27.3 kg/m2 [facility] 04-18-2023 13:55-0500 Body weight 81.4 kg [facility] 06-18-2022 15:47-0400 Body height 172.7 cm Yasmin Jackson MD Work Phone: [facility] 06-18-2022 15:47-0400 Body weight 82.37 kg Yasmin Jackson MD Work Phone: [facility] 06-18-2022 15:47-0400 Diastolic blood pressure 74 mm[Hg] Yasmin Jackson MD Work Phone: [facility] 06-18-2022 15:47-0400 Systolic blood pressure 120 mm[Hg] Yasmin Jackson MD Work Phone: [facility] Encounters Encounter Date Encounter Type Care Provider Facility Start: 01-18-2025 End: 01-18-2025 Admission to same day surgery center Dr. Matthew Moyer MD -Surgical Day Care Start: 01-18-2025 End: 01-18-2025 ambulatory Matthew Moyer Facility:[facility] Start: 01-04-2025 End: 01-04-2025 ambulatory YASMIN JACKSON Facility:[facility] Start: 01-04-2025 Encounter for gynecological examination (general) (routine) without abnormal findings YASMIN JACKSON [facility] Start: 09-22-2024 End: 09-22-[address] Florian Johns MD Work Phone: -Outpatient Breast Imaging Start: 09-22-2024 End: 09-22-[address] Yasmin Crouch MD -Outpatient Breast Imaging Work Phone: Start: 09-22-2024 End: 09-22-2024 ambulatory Yasmin Crouch Facility:[facility] Start: 07-27-2024 End: 07-27-[address] Matthew Moyer MD -Radiology [facility] Work Phone: Start: 07-27-2024 End: 07-27-2024 ambulatory Matthew Moyer Facility:[facility] Start: 07-09-2024 End: 07-09-2024 Telephone encounter Yasmin Jackson MD Work Phone: OB/Gynecology Start: 07-03-2024 End: 07-03-2024 Admission to same day surgery center Dr Yasmin Crouch MD -Surgical Day Care Start: 07-03-2024 End: 07-03-[address] Florian Johns MD Work Phone: [facility] Work Phone: Start: 06-09-2024 End: 06-09-2024 ambulatory LUIS E WATSON Facility:[facility] Start: 06-09-2024 End: 06-09-2024 Patient encounter procedure Yasmin Jackson MD Work Phone: OB/Gynecology Comment on above: Sterilization consul t (Primary Dx); Abnormal uterine bleeding (AUB); Dysmenorrhea; Pre-op exam Start: 06-09-2024 End: 06-09-2024 Preprocedural examination done Yasmin Jackson MD Work Phone: [facility] Start: 06-03-2024 End: 06-03-2024 Admission to same day surgery center Yasmin Jackson MD Work Phone: OB/Gynecology Comment on above: surgery confirmation Start: 06-03-2024 End: 06-03-2024 E-mail encounter from caregiver Yasmin Jackson MD Work Phone: OB/Gynecology Start: 04-21-2024 End: 04-21-2024 ambulatory LUIS E JOVANNY WTASON Facility:[facility] Start: 04-21-2024 End: 04-21-2024 Patient encounter [...] 04-18-2023 Admission to same day surgery center [facility]-Surgical Day Care Start: 04-18-2023 End: 04-18-2023 ambulatory [facility] Work Phone: Start: 02-22-2023 End: 02-22-2023 ambulatory [facility] Work Phone: Start: 02-22-2023 End: 02-22-2023 Patient encounter procedure [facility] Work Phone: Start: 08-06-2022 End: 08-06-[address] Florian Johns Work Phone: [facility] Work Phone: Start: 08-06-2022 End: 08-06-[address] [facility] Start: 06-27-2022 End: 06-27-[address] Florian Johns Work Phone: [facility] Work Phone: Start: 06-27-2022 End: 06-27-[address] Florian Johns Work Phone: [facility]-Outpatient Breast Imaging Start: 06-18-2022 End: 06-18-2022 Patient encounter procedure Yasmin Jackson MD Work Phone: OB/Gynecology Comment on above: Encounter for gyneco logical examination (general) (routine) without abnormal findings (Primary Dx); Encounter for screening mammogram for breast cancer Start: 06-18-2022 End: 06-18-2022 Patient encounter status Yasmin Jackson MD Work Phone: OB/Gynecology Start: 04-16-2022 Non-patient / Non-visit Dr. Orlin Johns Work Phone: [facility] Start: 04-16-2022 End: 04-16-[address] Florian Johns Work Phone: [facility] Work Phone: Start: 04-16-2022 End: 04-16-[address] Florian Johns Work Phone: [facility]-Pulmonary Services/Neurology Start: 02-07-2022 End: 02-07-2022 ambulatory [facility] Work Phone: Start: 02-07-2022 End: 02-07-2022 Patient encounter procedure [facility] Start: 08-29-2021 End: 08-29-2021 Patient encounter procedure [facility] Start: 08-04-2021 End: 08-04-2021 Patient encounter procedure [facility]-Laboratory, Specimen Start: 05-23-2021 End: 05-23-2021 Patient encounter procedure [facility] Start: 05-17-2021 End: 05-17-2021 Patient encounter procedure [facility]Labor[facility], Specimen Start: 06-11-2017 End: 06-13-2017 Evaluation and management of inpatient SUNDAR GUARDADO Facility:UNKNOWN Start: 03-18-2017 Patient encounter status [facility] Start: 03-18-[address] Florian giraldo MD Work Phone: [facility] Start: 10-17-2016 Ambulatory SUNDAR GUARDADO Facility: [...] Author Start: 05-23-2026 HPV TESTING HPV TESTING [facility] Start: 05-23-2026 PAP TESTING PAP TESTING [facility] Start: 05-23-2026 Screening for malign ant neoplasm of cervix Cervical Cancer Screening [facility] Start: 03-29-2025 ambulatory Ambulatory Facility:[facility] Start: 01-18-2025 Anes dx/ther nerve block/injection prone pos ANESTH N BLOCK/INJ PRONE [facility] Start: 01-18-2025 Njx dx/ther sbst int rlmnr crv/thrc w/img gdn NJX INTERLAMINAR CRV/THRC [facility] Start: 01-18-2025 Patient discharge [facility] Start: 10-07-2024 End: 10-07-2024 Patient encounter procedure 10/07/2024 3:20 PM EDT Office Visit OB/Gynecology [address] [place] [address] Yasmin Kee MD [address] [place] [address] Annual, x2 rescheduled OB/Gynecology Comment on above: Annual, x2 reschedul ed Start: 09-18-2024 End: 09-18-2024 Patient encounter procedure 09/18/2024 4:00 PM EDT Office Visit OB/Gynecology [address] [place], [place] [id number] Yasmin Kee MD [address] [place] [address] Annual OB/Gynecology Comment on above: Annual Start: 09-16-2024 BP Controlled (<130/80) BP Controlle d (<130/80) [facility] Start: 07-20-2024 End: 07-20-2024 Patient encounter procedure 07/20/2024 4:20 PM EDT Office Visit OB/Gynecology [address] [address] Yasmin Kee MD [address] [place] [address] post op / OB/Gynecology Comment on above: post op 4 Start: 07-03-2024 Anesthesia intraperitoneal lower abd w/laps nos ANESTH SURG LOWER ABDOMEN [facility] Start: 07-03-2024 Insertion intrauteri ne device iud INSERT INTRAUTERINE DEVICE [facility] Start: 07-03-2024 Laparoscopy w/rmvl adnexal structures LAPAROSCOPY REMOVE ADNEXA [facility] Start: 07-03-2024 Removal intrauterine device iud REMOVE INTRAUTERINE DEVICE [facility] Start: 07-03-2024 Patient discharge [facility] Start: 07-03-2024 Procedure discontinued [facility] Start: 07-03-2024 Ambulation without limitation [facility] Start: 07-03-2024 Medical regimen orde rs management [facility] Start: 07-03-2024 Medication education [facility] Start: 07-03-2024 Taking patient vital signs [facility] Start: 07-03-2024 Vital signs measurements [facility] Start: 07-03-2024 [facility] Start: 06-09-2024 End: 06-09-2024 Patient encounter procedure 06/09/2024 4:20 PM EDT Office Visit OB/Gynecology [address] [place] [address] Yasmin Kee MD [address] [place] [address] surgery 07/03 OB/Gynecology Comment on above: surgery 07/03 Start: 04-21-2024 End: 04-21-2024 Patient encounter procedure 04/21/2024 3:20 PM EST Office Visit OB/Gynecology [address] [place] [address] Yasmin Kee MD [address] [place] [address] Consult for bilateral salpingectomy OB/Gynecology Comment on above: Consult for bilatera l salpingectomy Start: 12-01-2023 Covid-19 Vaccine ( season) Covid-19 Vaccine ( season) [facility] Start: 12-01-2023 Influenza vaccination Influenza Vacc ine (#1) [facility] Start: 06-28-2023 Screening for malign ant neoplasm of breast Mammogram Screening [facility] Start: 06-19-2023 BP CONTROLLED (<130/80) BP CONTROLLE D (<130/80) [facility] Start: 04-18-2023 Patient discharge [facility] Start: 04-18-2023 Ambulation without limitation [facility] Start: 04-18-2023 Application of ice collar, cap or bag [facility] Start: 04-18-2023 Application of intermittent pneumatic compression device [facility] Start: 04-18-2023 Catheterization of vein [facility] Start: 04-18-2023 Elevation of affecte d extremity [facility] Start: 04-18-2023 Following clinical pathway protocol [facility] Start: 04-18-2023 Medical regimen orde rs management [facility] Start: 04-18-2023 Procedure discontinued [facility] Start: 04-18-2023 Taking patient vital signs [facility] Start: 04-18-2023 Vital signs measurements [facility] Start: 04-18-2023 Wound care [facility] Start: 04-18-2023 [facility] Start: 04-18-2023 Medication education [facility] Start: 04-01-2023 Behavioral Health Screening Behavioral Health Screening [facility] Start: 11-30-2022 Covid-19 Vaccine ( season) Covid-19 Vaccine () [facility] Start: 04-01-2022 DEPRESSION ASSESSMENT DEPRESSION ASS ESSMENT [facility] Start: 11-30-2021 Influenza vaccination INFLUENZA (#1) [facility] Start: 2021 COLOGUARD (FIT-DNA) COLOGUARD (FIT-D NA) [facility] Start: 2021 Colonoscopy COLONOSCOPY [facility] Start: 2021 COLORECTAL CANCER SCREENING COLORECTAL CANCER SCREENING [facility] Start: [address] [facility] Start: 2021 FECAL OCCULT BLOOD FECAL OCCULT BLOO D [facility] Start: 2021 Screening for malign ant neoplasm of colon [facility] Start: 2021 SIGMOIDOSCOPY SIGMOIDOSCOPY [facility] Start: 2016 Mammography MAMMOGRAM [facility] Start: 1995 Hepatitis B Vaccine (1 of 3 - 19+ 3-dose series) Hepatitis B Vaccine (1 of 3 - 19+ 3-dose series) [facility] Start: 1995 Pneumococcal vaccination Pneum ococcal Vaccine (1 of 2 - PCV) [facility] Start: 1995 Urine microalbumin profile [facility] Start: 1994 ANNUAL PCP TEAM MERCHANDISE DISTRIBUTOR ALMA ROSA DISEASE VISIT ANNUAL PCP TEAM CHRONIC DISEASE VISIT [facility] Start: 1994 Anxiety Screening Anxiety Screening [facility] Start: 1994 BP Controlled (<130/80) BP Controlle d (<130/80) [facility] Start: 1994 Depression Screening Depression Scre ening [facility] Start: 1994 Hepatitis B surface antibody level LDL CHOLESTEROL [facility] Start: 1994 HEPATITIS C SCREENING HEPATITIS C SC [facility] Start: 1994 Hepatitis C screening Hepatitis C Sc [facility] Start: 1994 HIV SCREENING HIV SCREENING [facility] Start: 1994 HIV screening HIV Screening [facility] Start: 1986 3 comp foot exam completed DIABETIC FOOT EXAM [facility] Start: 1986 Diabetic foot examination Diabetic F oot Exam [facility] Start: 1986 Glaucoma screening Dilated Retinal E xam [facility] Start: 1986 Hepatitis B screening URINE ALBUMIN:CREATININE RATIO [facility] Start: 1986 Hepatitis C antibody , confirmatory test DILATED RETINAL EXAM [facility] Start: 1982 PNEUMOCOCCAL (1 - PCV) PNEUMOCOCCAL (1 - PCV) [facility] Start: 1982 Pneumococcal vaccination Pneum ococcal Vaccine (1 of 2 - PCV) [facility] Start: 1981 Hemoglobin A1c measurement HbA1C [facility] Start: 1981 Hemoglobin A1c/Hemoglobin.total in Blood HBA1C [facility] Start: 1976 COVID-19 VACCINE (#1) COVID-19 VACCI NE (#1) [facility] Start: 1976 HEPATITIS B (1 of 3 - 3-dose series) HEPATITIS B (1 of 3 - 3-dose series) [facility] End: 07-18-2023 RORY SCREENING RORY SCREENING Radiology Routine Encounter for screening mammogram for breast cancer 1 Occurrences starting 06/18/2022 until 07/18/2023 [facility] Work Phone: Comment on above: 1 Occurrences starti ng 06/18/2022 until 07/18/2023 Patient referral [facility] Work Phone: [facility] Immunizations Immunization Date Immunization Notes Care Provider Prosper carlin 02-02-2020 influenza virus vacc ine, unspecified formulation Yasmin Jackson MD Work Phone: [facility] Payers Date Payer Category Payer Self-pay [id number] 2022 Private Health Insurance [id number] 2022 Unknown [id number] 2013 Unknown [id number] Unknown [id number] Unknown [id number] Unknown [id number] Unknown [id number] Unknown [id number] Social History Date Type Detail Facility Start: 04-30-2020 End: 04-08-2023 Tobacco smoking status ILIS Unknown if ever smoked [facility] Start: 1975 Sex Assigned At Female W [facility] Start: 12-24-2012 End: 01-07-2025 Tobacco smoking status NHIS Never smoked tobacco [facility] Start: 12-24-2012 Tobacco use and exposure Smokeless tobacco non-user [facility] Start: 06-18-2022 End: 07-03-2024 Alcohol intake Current drinker of alcohol (finding) [facility] Start: 12-24-2012 Alcohol Comment occasional [facility] Start: 09-17-2023 End: 06-09-2024 History of Social function [facility] Start: 09-17-2023 End: 06-09-2024 Tobacco use panel [facility] National Score (1-100), lower number is lower risk 80 [facility] Start: 04-04-2021 Gender identity Identifies as female gender (finding) [facility] Start: 04-04-2021 Sexual orientation Heterosexual (fin ding) [facility] Start: 07-03-2024 Sex Female (finding) [facility] NEGATED: Highlighted row Not [facility] Medical Equipment Procedure Code Equipment Code [...] HEMOSTAT ABS FDA Start: 02-22-2020 Breast reduction RASHWAN 3GRM HEMOSTAT ABS FDA Start: 02-22-2020 Breast [...] 08/06/2014 10:59 AM Brandy Rdz RN No [facility] 08-06-2014 Are you blind, or do you have serious difficulty seeing, even when wearing glasses No 08/06/2014 10:59 AM Brandy Rdz RN No [facility] 08-06-2014 Do you have serious difficulty walking or climbing stairs No 08/06/2014 10:59 AM Brandy Rdz RN No [facility] 08-06-2014 Do you have difficul ty dressing or bathing No 08/06/2014 10:59 AM Brandy Rdz, YOLIE No [facility] 08-06-2014 Because of a physica l, mental, or emotional condition, do you have difficulty doing errands alone such as visiting a physician's office or shopping No 08/06/2014 10:59 AM Brandy Rdz RN No [facility] Mental Status Date Assessment Result Facility 01-18-2025 Cognitive function Level Of Cons ciousness Follows [facility] Work Phone: 07-03-2024 Cognitive function Voice/Name [facility] Work Phone: 07-03-2024 Cognitive function Patient Omar damico Person;Place;Time [facility] Work Phone: 04-18-2023 Cognitive function Voice/Name [facility] Work Phone: 08-06-2014 Because of a physica l, mental, or emotional condition, do you have serious difficulty concentrating, remembering, or making decisions No 08/06/2014 10:59 AM EDT Brandy Lackey RN No [facility] Clinical Notes 04-16-2022 to 01-18-2025 Telephone Encounter - Jenn Reynolds RN - 07/09/2024 3:00 PM EDTTelephone Encounter - Jenn Reynolds RN - 07/09/2024 3:00 PM EDT Note Date & Type Note Facility 01-18-2025 Consult note [facility] 01-18-2025 Radiology Diagnostic study note [facility] Imaging Services [address] [place] [address] Fluor Guidance for Spine Inj MR#: [id number] Acct: [id number] Name: NICOLASA CASTILLO Rep #: [id number] : 1975 F 49 From: Valdo Arambula MD PCP: Dr. Florian Johns MD Status: DEP S PR Study:Fluor Guidance for Spine Inj Date of Ex am: 01/18/25 Exam# [id number] Ordering Dr: Matthew Moyer MD PROCEDURE: FLUOR [...] fluoroscopic images were also obtained. Reading Location: [address] CC: Dr. Matthew Moyer MD; Dr. Florian Johns MD ~ Teletype Installer: Signed [facility] 01-18-2025 Radiology Diagnostic study note [facility] Imaging Services [address] [place] [address] OR-Steroid Inj/Cer Thor/1st L MR#: [id number] Acct: [id number] Name: NICOLASA CASTILLO Rep #: [id number] : 1975 F 49 From: Valdo Arambula MD PCP: Dr. Florian Johns MD Status: DEP S DC Study:OR-Steroid Inj/Cer Thor/1st L Date of E xam: 01/18/25 Exam# [id number] Ordering Dr: Matthew Moyer MD PROCEDURE: FLUOR [...] fluoroscopic images were also obtained. Reading Location: [address] CC: Dr. Matthew Moyer MD; Dr. Florian Johns MD ~ Teletype Installer: Signed [facility] 01-18-2025 Procedure note [facility] 01-18-2025 Consult note [facility] 01-04-2025 Note HNO ID: [id number] Author: YASMIN KEE MD Service: ? 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 PAST MEDICAL HISTORY Diagnosis Date Diabetes (HCC) Dysmetabolic syndrome Gout Hypercholesteremia Hypertension Hypothyroidism PAST SURGICAL HISTORY Procedure Laterality Date ASPIRATIONAND/INJECTION GANGLION CYST ANY LOCATJ Right 04/2023 removal cyst INSERTION OF IUD 07/03/2024 Liljesus MIRENA 03/23/2013 Removed 07/03/24 by DM at [facility] OFFICE LEEP 02/13/2013 Negative PAST SURGICAL HISTORY OF 05/2017 gastric [facility] REDUCTION OF LARGE BREAST Bilateral [...] discussed with the Patient or Patient's Authorized Commercial Loan Processor. As applicable, any other physician, advance practice provider, medical student, or other health professional student that will be observing or involved in the sensitive examination for educational or training purposes was discussed with the Patient or Authorized Commercial Loan Processor. The Patient or Authorized Commercial Loan Processor has agreed to proceed with the sensitive [...] external genitalia normal, normal Bartholin's glands, urethra, Hissop's glands, no vulvar lesions, no cervical lesions, [...] or sooner as needed Yasmin Crouch MD [facility] 07-09-2024 Telephone encounter Note Pt notified and voiced understanding. Pt states hasn't taken any tylenol since the 7th. Advised Pt that no post-op appt is necessary unless she has questions/concerns. Pt states she currently has one scheduled. Advised Pt that is she has questions/concerns for Dr. Jackson then she should keep scheduled appt, but if not she can call and cancel or cancel on mychart. Pt denies questions/concerns at this time. Jenn Reynolds RN [facility] 07-09-2024 Miscellaneous Notes Pt notified and [...] op unless concerns. documented in this encounter [facility] 07-09-2024 Telephone encounter Note Please notify patient that pathology was benign from lap bilateral salpingectomy. She did have small cyst on one of her tubes that was c/w serous cystadenoma that I removed- nothing further. How is she feeling? No need for post op unless concerns. [facility] 07-03-2024 Consult note [facility] 07-03-2024 Consult note Note Date/Time July 03, 2024 9:33am [facility] Medical Records Department [address] [place] [address] Anesthesia Postop Eval I 07/03/24 0931 MR#: [id number] Acct: [id number] Name: NICOLASA CASTILLO Rep #:[id number] : 1975 49 From: Tamela ANDUJAR: Dr. Florian Johns MD Status:REG S DC Y Race: C Location: [place] [address] Anesthesia: Postop Eval I Current Vital Signs [...] document: Postop Eval 1 completed: Yes 07/03/24932 <Electronically signed by Tamela medeiros SENIOR QA TESTER> Date _ Tamela Desai SENIOR QA TESTER Cosigner Signature: Date CC: ~ Signed [facility] Work Phone: 1(449) 771-616604-04-2025 Discharge summary Author Yasmin Panda [facility] Note Date/Time July 03, 2024 8:24 am [facility] Medical Records Department [address] [place] [address] Instructions for Home/Discharge Instructions 07/03/24 0823 MR#: [id number] Acct: [id number] Name: NICOLASA CASTILLO Rep #:[id number] : [...] if you need an appointment please call [phone] Test Results: Test results from this visit will be discussed in further detail at your follow- up appointment, if applicable. Discharge Plan Admission Attending Provider: Yasmin Crouch Primary Care Provider: Florian Johns Instructions Print Language: Singaporean Discharge Orders/Prescriptions Prescriptions: No Action levothyroxine 88 [...] CC: Dr. Florian Johns MD ~ Signed [facility] Work Phone: 1(618) 480-918804-04-2025 Consult note Author Kaushal Leonardo [facility] Note Date/Time July 03, 2024 7:53 am [facility] Medical Records Department [address] [place] [address] Pre-Anesthesia Evaluation 07/03/24 0747 MR#: [id number] Acct: [id number] Name: NICOLASA CASTILLO Rep #:[id number] : 1975 49 From: Kaushal Leonardo MD PCP: Dr. Florian Johns MD Status:REG S DC Y Race: C Location: [place] [address] ASA Classification* ASA Classification ASA Classification: 2 [...] LILETTA IUD Anesthesia History Anesthesia History - yarn finisher: Anesthesia History - yarn finisher Hx Hospitalization No 06/10/24 08:11 Any Problems [...] take am of surgery PONV PONV - yarn finisher: PONV - yarn finisher Female Yes 06/10/24 08:11 HX of Motion [...] 07/03/24 07:11 Respiratory Assessment Respiratory Assessment - yarn finisher: Respiratory Tract Infection Hx - yarn finisher Hx Respiratory Tract Infection No 06/10/24 08:11 STOP Sleep Apnea STOP Sleep Apnea - yarn finisher: STOP Sleep Apnea - yarn finisher Hx Hypertension Yes: NO MEDS SINCE 201706/10/24 [...] Tobacco Use History Tobacco Use History - yarn finisher: Tobacco Use History - yarn finisher Tobacco Use Smoking Status Never smoker 06/10/24 08:11 Hx Tobacco Use No 06/10/24 08:11 Years Smoking Packs Smoked per Day Smoking Cessation Date was within the last 15 years Hx Smoking Cessation Date Hx Smoking Cessation Counseling Hematologic Medial History Hematologic Hx - yarn finisher: 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 Hx of Blood Transfusion No 06/10/24 [...] confused, unrespo /Reproduction History /Reproductive History - yarn finisher: /Reproductive Hx- yarn finisher Hx Now No 06/10/24 08:11 Gestational Age [...] Family History Mother CAD (coronary artery disease) OR age 47 Hypertension Brother Hypertension Diabetes Other [...] Leonardo MD Cosigner Signature: CC: ~ Signed [facility] Work Phone: [phone] 775-847904-04-2025 Consult note [facility] Medical Records Department [address] [place] [address] Anesthesia Postop Eval I 07/03/24930 MR#: [id number] Acct: [id number] Name: NICOLASA CASTILLO Rep #:[id number] : 1975 49 From: Tamela Desai SENIOR QA TESTER PCP: Dr. 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 Florian Johns MD Status:REG S PR Location: [place] [address] History and Physical Date of Admission: 07/03/24 [...] Negative ? PAST SURGICAL HISTORY OF 05/2017 [facility] ? REDUCTION OF LARGE BREAST Bilateral 2019 [...] MD; Dr. Florian Johns MD ~* Signed [facility] Work Phone: [phone] 431-960104-04-2025 Procedure note [facility] Medical Records Department [address] [place] [address] Operative Report 07/03/24 0913 MR#: [id number] Acct: [id number] Name: NICOLASA CASTILLO Rep #:[id number] : 1975 49 From: Yasmin Jackson MD PCP: Dr. Florian Johns MD Status:REG S DC Location: [place] [address] Operative Report (Standard) Operative Information Date of Procedure: 07/03/24 Pre-Operative Diagnosis: desires sterilization, dysmenorrhea, heavy menses Post-Operative Diagnosis: same, Omental adhesions Surgery/Procedure Performed: IUD removal, IUD- liletta insertion, laparoscopic bilateral salpingectomy, Lysis of adhesions associate professor of history: No Type of Anesthesia: General and Local [...] anesthesia. She was then placed in the [facility] stirrups and she was prepped and draped [...] Reason prophylaxis not ordered: Treatment Not Indicated 07/03/24919 Cosigner Signature (if applicable): CC: Dr Yasmin Crouch MD; Dr. Florian Johns MD~ Signed [facility]04-04-2025 Discharge summary [facility] Medical Records Department [address] [place] [address] Instructions for Home/Discharge Instructions 07/03/24 0823 MR#: [id number] Acct: [id number] Name: ANNANICOLASA M Rep #:[id number] : 1975 49 From: [...] if you need an appointment please call [phone] Test Results: Test results from this visit will be discussed in further detail at your follow- up appointment, if applicable. Discharge Plan Admission Attending Provider: Yasmin Crouch Primary Care Provider: Florian Johns Instructions Print Language: Singaporean Discharge Orders/Prescriptions Prescriptions: No Action levothyroxine 88 [...] CC: Dr. Florian Johns MD ~ Signed [facility]04-04-2025 Consult note [facility] Medical Records Department [address] [place] [address] Pre-Anesthesia Evaluation 07/03/24 0747 MR#: [id number] Acct: [id number] Name: ANNANICOLASA M Rep #:[id number] : 1975 49 From: Kaushal Leonardo MD PCP: Dr. Florian Johns MD Status:REG S DC Y Race: C Location: [facility]04- ASA Classification* ASA Classification ASA Classification: 2 [...] LILETTA IUD Anesthesia History Anesthesia History - yarn finisher: Anesthesia History - yarn finisher Hx Hospitalization No 06/10/24 08:11 Any Problems [...] take am of surgery PONV PONV - yarn finisher: PONV - yarn finisher Female Yes 06/10/24 08:11 HX of Motion [...] 07/03/24 07:11 Respiratory Assessment Respiratory Assessment - yarn finisher: Respiratory Tract Infection Hx - yarn finisher Hx Respiratory Tract Infection No 06/10/24 08:11 STOP Sleep Apnea STOP Sleep Apnea - yarn finisher: STOP Sleep Apnea - yarn finisher Hx Hypertension Yes: NO MEDS SINCE 201706/10/24 [...] Tobacco Use History Tobacco Use History - yarn finisher: Tobacco Use History - yarn finisher Tobacco Use Smoking Status Never smoker 06/10/24 08:11 Hx Tobacco Use No 06/10/24 08:11 Years Smoking Packs Smoked per Day Smoking Cessation Date was within the last 15 years Hx Smoking Cessation Date Hx Smoking Cessation Counseling Hematologic Medial History Hematologic Hx - yarn finisher: 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 Hx of Blood Transfusion No 06/10/24 [...] confused, unrespo /Reproduction History /Reproductive History - yarn finisher: /Reproductive Hx- yarn finisher Hx Now No 06/10/24 08:11 Gestational Age (in weeks): EDC: Hx Hx Para Hx Section SAB No 06/10/24 08:11 Active Medications Active Medications: Current Medications Generic Name Dose Route Start Last Admin Trade Name Ro PRN Reason Stop Dose Admin Sodium Chloride [...] Family History Mother CAD (coronary artery disease) OR age 47 Hypertension Brother Hypertension Diabetes Other [...] MD Cosigner Signature: Date CC: ~ Signed [facility]04-04-2025 History and physical note [facility] Medical Records Department [address] [place] [address] H&P 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 Florian Johns MD Status:REG S PR Location: [place] [address] History and Physical Date of Admission: 07/03/24 [...] Negative ? PAST SURGICAL HISTORY OF 05/2017 [facility] ? REDUCTION OF LARGE BREAST Bilateral 2019 [...] IMPRESSION: 49yo desires sterilization and IUD - Malivnetta for menstrual regulation - h/o AUB and [...] on 06/09/2024 Note shared with patient 07/02/24 1064 Cosigner Signature (if applicable): CC: Dr Yasmin Crouch MD; Dr. Florian Johns MD~ Signed ADDENDUM by Dr Yasmin Crouch MD on 07/03/24 at 0722 Addendum I have examined the patient and the H&P has been reviewed. There are no clinicalchanges since date of exam. 07/03/24 07 Cosigner Signature (if applicable): cc: Dr Yasmin Crouch MD; Dr. Florian Johns MD ~* Signed [facility]03-11-2025 NoteHNO ID: [id number] Author: YASMIN KEE MD Service: ? Author Type: Physician Type: Progress Notes Filed: 06/09/2024 17:27 Note Text:[facility]03-11-2025 History of Present illness Narrative* Yasmin Kee MD - 06/09/2024 5:25 PM EDT [facility] History and physical note * Yasmin [...] SURGICAL HISTORY OF 05/2017 [facility] REDUCTION OF LARGE BREAST Bilateral 2020 [...] history, medications and allergies Yasmin Jackson MD [facility]03-11-2025 History and physical note* Yasmin Kee [...] 02/13/2013 Negative PAST SURGICAL HISTORY OF 05/2017 [facility] REDUCTION OF LARGE BREAST Bilateral 2020 VAGINOSCOPY [...] salpingectomy and IUD removal and reinsertion with Malvinjesus Pt has been counseled on risks/benefits and alternatives of surgery including but not limited to anesthesia, bleeding, infection, injury to pelvic structures including bowel, bladder, ureters and vessels. Pt wishes to proceed with surgery at this time. Pre and post op instructions reviewed I have reviewed and updated past medical and surgical history, medications and allergies Yasmin Jackson MD documented in this [facility]01-21-2025 NoteHNO ID: [id number] Author: YASMIN KEE MD Service: ? 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 PAST MEDICAL HISTORY Diagnosis Date Diabetes (HCC) Dysmetabolic syndrome Gout Hypercholesteremia Hypertension Hypothyroidism PAST SURGICAL HISTORY Procedure Laterality Date ASPIRATIONAND/INJECTION GANGLION CYST ANY LOCATJ Right 04/2023 removal cyst MIRENA 03/23/2013 OFFICE LEEP 02/13/2013 Negative PAST SURGICAL HISTORY OF 05/2017 gastric [facility] REDUCTION OF LARGE BREAST Bilateral [...] which included preparing to see the patient, [id number] patient care, completing clinical documentation, obtaining and/or reviewing separately obtained history, performing a medically appropriate examination, and counseling and educating the patient/family/caregiver. 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 PAST MEDICAL HISTORY Diagnosis Date Diabetes (HCC) Dysmetabolic syndrome Gout Hypercholesteremia Hypertension Hypothyroidism PAST SURGICAL HISTORY Procedure Laterality Date ASPIRATION&/INJECTION GANGLION CYST ANY LOCATJ Right 04/2023 removal cyst MIRENA 03/23/2013 OFFICE LEEP 02/13/2013 Negative PAST SURGICAL HISTORY OF 05/2017 [facility]- [facility] REDUCTION OF LARGE BREAST Bilateral 2020 [...] which included preparing to see the patient, [id number] patient care, completing clinical documentation, obtaining and/or reviewing separately obtained history, performing a medically appropriate examination, and counseling and educating the patient/family/caregiver. Yasmin Crouch MD documented in [facility]01-09-2025 Telephone encounter Note * Telephone Encounter - Desiree Vann RN - 04/09/2024 9:07 AM EST Patient not able to leave work today. Scheduled for another date. Desiree Vann RN [facility]01-09-2025 Miscellaneous Notes* Telephone Encounter - Desiree [...] tubal. Brandy Lackey RN documented in this encounterOhio [facility]01-09-2025 Telephone encounter Note * Telephone Encounter - Yasmin Kee MD - 04/09/2024 8:00 AM EST Yes, please schedule with me. I have openings today. [facility]01-08-2025 Telephone encounter Note* Telephone Encounter - Brandy Lackey RN - 04/08/2024 4:50 PM EST Patient last seen for annual exam on 09/17/23. Do you want patient to schedule consult for tubal. Brandy Lackey RN [facility]07-01-2024 Telephone encounter Note* Telephone Encounter - Brandy Lackey RN - 09/30/2023 9:16 AM EDT Patient notified and voiced understanding. Patient states she will contact office if she would liketo see dermatology. Brandy Lackey RN [facility]07-01-2024 Miscellaneous Notes* Telephone Encounter - Brandy [...] try something like GUILHERME D'OR (sell on [employer]) use erik drops, and can use Spironolactone 10 days out of the month. I would also recommend second opinion by Dermatology. * Telephone Encounter - Pat Marquez LPN - 09/26/2023 4:57 PM EDT Testosterone and DHEA lab results from [facility] received and to Dr. Jackson to review. Results entered in scanned documents documented in this encounterOhio [facility]06-30-2024 Telephone encounter Note * Telephone Encounter [...] try something like GUILHERME D'OR (sell on [employer]) use erik drops, and can use Spironolactone 10 days out of the month. I would also recommend second opinion by Dermatology. [facility]06-27-2024 Telephone encounter Note* Telephone Encounter - Pat Marquez LPN - 09/26/2023 4:57 PM EDT Testosterone and DHEA lab results from [facility] received and to Dr. Jackson to review. Results entered in scanned documents [facility]2023 Instructions* Patient Instructions* Yasmin Jackson MD [...] salmon and sardines and vegetables, such as Georgian cabbage, kale, and broccoli. Foods fortified with [...] acid, calcium carbonate is found in some bezv-rse-ahcdxai antacid products, such as Tums and Rolaids [...] prescribed by your doctor. documented in this encounterOhio [facility]2023 History of Present illness Narrative* Yasmin Jackson MD - 06/18/2022 3:39 PM EDT Buttonhole Tacker offered: Patient declines. Nicolasa is a 47 year old who presents for an annual gynecologic exam without complaints. Hair loss stable since last year. Planning trip to [place]. Daughter getting this year. Menses: no menses - Mirena IUD. Contraception: IUD HPV vaccine: No Last Pap: 05/29/2021 normal HPV: 05/26/2021 negative History of abnormal pap: Yes [place] mamm[place] 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 PAST MEDICAL HISTORY Diagnosis Date Diabetes (HCC) Dysmetabolic syndrome Gout Hypercholesteremia Hypertension Hypothyroidism PAST SURGICAL HISTORY Procedure Laterality Date MIRENA 03/23/2013 OFFICE LEEP 02/13/2013 Negative PAST SURGICAL HISTORY OF 05/2017 gastric [facility] REDUCTION OF LARGE BREAST Bilateral 2020 [...] external genitalia normal, normal Bartholin's glands, urethra, Hissop's glands, no vulvar lesions, no cervical lesions, good vaginal support, physiologic discharge present, normal appearing perineal body and perianal region, IUD strings present BIMANUAL: uterus normal size, shape and consistency, no adnexal masses, and non-tender RECTOVAGINAL: deferred. NEURO: alert and oriented x3,exam grossly non-focal EXTREMITIES: normal ASSESSMENT/PLAN: 1) Health maintenance: Pap/HPV up to date. Mammogram ordered [facility] Nutrition, exercise and routine health maintenance exams reviewed. Calcium/vit d information provided. 2) Contraception: IUD. Contraceptive options reviewed and information provided. 3) STD screening: Declined STD check. 4) Follow up one year or sooner as needed Yasmin Crouch MD documented in this encounterOhio [facility]01-16-2023 Procedure noteWooSt. Charles HospitalConsult note Author Rose Geiger [facility] Note Date/Time July 03, 2024 12:1 0pm [facility] Medical Records Department [address] [place] [address] Anesthesia Postop Eval II 07/03/24 1050 MR#: [id number] Acct: [id number] Name: NICOLASA CASTILLO Rep #:[id number] : 1975 49 From: Rose Geiger PCP: Dr. Florian Johns MD Status:REG S DC Y Race: C Location: [place] [address] Anesthesia Postop Eval I Sum Postop Eval Completion status Anesthesia document: Postop Eval 1 completed: Yes Anesthesia Postop Eval I Summary Anesthesia Postop Eval I Summary: Anesthesia Postop Eval I: Assessment Summary Airway patent Yes 07/03/24 09:33 SENIOR [email or web address] [email or web address].[email or web address] Spontaneous unlabored Yes 07/03/24 09:33 SENIOR QA [email or web address].LMIL respirations Mental status Awake 07/03/24 09:33 SENIOR QA [email or web address].LMIL nausea No 07/03/24 09:33 SENIOR QA TESTER.LMIL Vomiting No 07/03/24 09:33 SENIOR QA TESTER.LMIL Anesthesia Postop Eval I: Fluid Summary Crystalloid volume administer 1,000 07/03/24 09:33 SENIOR QA TESTER.LMIL (ml) Colloids volume administered ( ml) Blood Product volume administered (ml) Total IV fluid infused 1,000 07/03/24 09:33 SENIOR QA TESTER.LMIL Anesthesia Postop Eval I: Summary Notes Anesthesia Complication No 07/03/24 09:33 SENIOR QA TESTER.LMIL Anesthesia Complication Comment: Post-operative progress note Anesthesia: Postop Eval II Evaluation Mental status: Awake Pain Level: 2 nausea: No Vomiting: No 07/03/24 1050 <Electronically signed by Rose brizuela> Date _ Rose De Santiago Signature: Date CC: ~ Signed [facility] Work Phone: Consult note [facility] Medical Records Department [address] [place] [address] Anesthesia Postop Eval II 01/18/25 1237 MR#: [id number] Acct: [id number] Name: NICOLASA CASTILLO Rep #:[id number] : 1975 49 From: Jan Daniel MD PCP: Dr. Florian Johns MD Status:DEP S DC Y Race: C [place] [facility] [place]esthesia Postop Eval I Sum Postop Eval Completion status Anesthesia document: Postop Eval 1 completed: Yes Anesthesia Postop Eval I Summary Anesthesia Postop Eval I Summary: Anesthesia Postop Eval I: Assessment Summary Airway patent Yes 01/18/25 08:06 SENIOR QA [email or web address].CSIR Spontaneous unlabored Yes 01/18/25 08:06 SENIOR QA TESTER.CSIR respirations Mental status nausea No 01/18/25 08:06 SENIOR QA TESTER.CSIR Vomiting No 01/18/25 08:06 SENIOR QA TESTER.CSIR Anesthesia Postop Eval I: Fluid Summary Crystalloid volume administer 200 01/18/25 08:06 SENIOR QA TESTER.CSIR (ml) Colloids volume administered ( ml) Blood Product volume administered (ml) Total IV fluid infused 200 01/18/25 08:06 SENIOR QA TESTER.CSIR Anesthesia Postop Eval I: Summary Notes Anesthesia Complication No 01/18/25 08:06 SENIOR QA TESTER.CSIR Anesthesia Complication Comment: Post-operative progress note Anesthesia: Postop Eval II Evaluation Mental status: Awake Pain Level: 3 nausea: No Vomiting: No 01/18/25 1237 > Date _ Jan Daniel MD Cosigner Signature: Date CC: ~ Signed [facility] Author Jan ricky [facility] Note Date/Time January 18, 2025 9 :44am [facility] Medical Records Department [address] [address] Pre-Anesthesia Evaluation 01/18/25 0755 MR#: [id number] Acct: [id number] Name: NICOLASA CASTILLO Rep #:[id number] : 1975 49 From: Jan Daniel MD PCP: Dr. Florian Johns MD Status:REG S DC Y Race: C Location: [place] [address] ASA Classification* ASA Classification ASA Classification: 2 [...] Cervical Epidural Anesthesia History Anesthesia History - yarn finisher: Anesthesia History - yarn finisher Hx Hospitalization No 01/07/25 13:33 Any Problems [...] take am of surgery PONV PONV - yarn finisher: PONV - yarn finisher Female Yes 01/07/25 13:33 HX of Motion [...] 01/18/25 06:43 Respiratory Assessment Respiratory Assessment - yarn finisher: Respiratory Tract Infection Hx - yarn finisher Hx Respiratory Tract Infection No 01/07/25 13:33 STOP Sleep Apnea STOP Sleep Apnea - yarn finisher: STOP Sleep Apnea - yarn finisher Hx Hypertension Yes: NO MEDS SINCE 201701/07/25 [...] Tobacco Use History Tobacco Use History - yarn finisher: Tobacco Use History - yarn finisher Tobacco Use Smoking Status Never smoker 01/07/25 13:33 Hx Tobacco Use No 01/07/25 13:33 Years Smoking Packs Smoked per Day Smoking Cessation Date was within the last 15 years Hx Smoking Cessation Date Hx Smoking Cessation Counseling Hematologic Medial History Hematologic Hx - yarn finisher: 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 01/18/25 3115 <Electronically signed by Jan Daniel MD > Date _ Jan Florign Signature: Date CC: ~ Signed [facility] Work Phone: Consult note Author Rose Geiger [facility] Note Date/Time January 18, 2025 9 :07am [facility] Medical Records Department [address] [place] [address] Anesthesia Postop Eval I 01/18/25 0805 MR#: [id number] Acct: [id number] Name: NICOLASA CASTILLO Rep #:[id number] : 1975 49 From: Rose Geiger CRNA PCP: Dr. Florian Johns MD Status:REG S DC Y Race: C Location: [place] [address] Anesthesia: Postop Eval I Current Vital Signs Temperature: 98.2 F Pulse Rate: 72 Blood Pressure: 110/75 Respiratory Rate: 20 Pulse Ox: 98 Assessment Airway patent: Yes Spontaneous unlabored respirations: Yes nausea: No Vomiting: No Anesthesia Complication: No Fluid Hydration Crystalloid volume administer (ml): 200 Total IV fluid infused: 200 Progress Note Anesthesia document: Postop Eval 1 completed: Yes 01/18/25 0807 <Electronically signed by Rose brizuela SENIOR QA TESTER> Date _ Rose Geiger SENIOR QA TESTER Cosigner Signature: Date CC: ~ Signed [facility] Work Phone: Consult note Author Jan Daniel [facility] Note Date/Time January 18, 2025 1 :37pm [facility] Medical Records Department [address] [place] [address] Anesthesia Postop Eval II 01/18/25 1237 MR#: [id number] Acct: [id number] Name: NICOLASA CASTILLO Rep #:[id number] : 1975 49 From: Jan Daniel MD PCP: Dr. Florian Johns MD Status:DEP S MON[place] Y Race: C [place] [facility] [place]esthesia Postop Eval I Sum Postop Eval Completion status Anesthesia document: Postop Eval 1 completed: Yes Anesthesia Postop Eval I Summary Anesthesia Postop Eval I Summary: Anesthesia Postop Eval I: Assessment Summary Airway patent Yes 01/18/25 08:06 SENIOR QA TESTER.CSIR Spontaneous unlabored Yes 01/18/25 08:06 SENIOR QA TESTER.CSIR respirations Mental status nausea No 01/18/25 08:06 SENIOR QA TESTER.CSIR Vomiting No 01/18/25 08:06 SENIOR QA TESTER.CSIR Anesthesia Postop Eval I: Fluid Summary Crystalloid volume administer 200 01/18/25 08:06 SENIOR QA TESTER.CSIR (ml) Colloids volume administered ( ml) Blood Product volume administered (ml) Total IV fluid infused 200 01/18/25 08:06 SENIOR QA TESTER.CSIR Anesthesia Postop Eval I: Summary Notes Anesthesia Complication No 01/18/25 08:06 SENIOR QA TESTER.CSIR Anesthesia Complication Comment: Post-operative progress note Anesthesia: Postop Eval II Evaluation Mental status: Awake Pain Level: 3 nausea: No Vomiting: No 01/18/25 1237 <Electronically signed by Jan Daniel MD > Date _ Jan Daniel [facility] Signature: Date CC: ~ Signed [facility] Work Phone: Evaluation noteNo assessment information available [facility] Work Phone: Evaluation note* Diagnosis Encounter for gynecological examination (general) (routine) without abnormal findings- Primary Encounter for screening mammogram for breast cancer documented [facility] encounter [facility]* Diagnosis Sterilization consult- Primary Other general counseling and advice for contraceptive management documented in this encounter [facility] HospitalEvselect specialty [facility] [place] [facility] Diagnosis Sterilization consult- Primary Other general counseling and advice for contraceptive management Abnormal uterine bleeding (AUB) Dysmenorrhea Pre-op exam Preoperative examination, unspecified documented in this encounter [facility] Discharge instructions Additional Instructions Implant Used?: [facility] Work Phone: Reason for referral (narrative)* Diagnostic Procedure Only (Routine) - Pending Review Specialty Diagnoses / Procedures Referred By Contac t Referred To Contact [facility] Diagnoses Encounter for screening mammogram for breast cancer Procedures RORY SCREENING SCREENING MAMMOGRAPHY BI 2-VIEW BREAST INC CAD Yasmin Kee MD [address] [place] [address] [facility] [address] [place] [address] Referral ID Status Reason Start Date Expiration Date Visits Requested Visits Authorized [id number] Pending Review Auto-Generat ed Referral 06/18/2022 07/18/2023 1 1 [facility] for referral (narrative)No reason for referral information [facility] Work Phone: Summary Purpose Family History Relationship Condition Age at Onset Recorded Date/T elvira Not Specified Arthritis Unknown mother Coronary artery disease Unknown Hypertension Unknown brother Hypertension Unknown Diabetes mellitus Unknown Advance Directives Advance Directive Response Recorded Date/ Time Advance Directives No June 17, 2 014 2:14pm Living Will No February 21 2 020 4:30pm Power of Combatant Diver Officer No February 22, 2020 4:30pm Advance Directive Response Recorded Date/ Time Advance Directives No June 17 2 014 1:14pm Living Will No February 21, 2 020 3:30pm Power of Combatant Diver Officer No February 22, 2020 3:30pm Advance Directive Response Recorded Date/ Time Advance Directives No June 17, 2 014 1:14pm Living Will No April 08 1:20pm Power of Combatant Diver Officer No April 08, 2 024 1:20pm Advance Directive Response Recorded Date/ Time Living Will No June 10, 2024 8:11am Do you have a Healthcare Power of Combatant Diver Officer? No June 10, 2024 8:11am Advance Directives No June 17, 2 014 2:14pm Advance Directive Response Recorded Date/ Time Do you have a Healthcare Power of Combatant Diver Officer? No January 07, 2025 12:33pm Advance Directives [...] Admit Date Block, Cervical Epidural January 18, 025 6:26am Additional Source Comments INFORMATION SOURCE (unrecogn ized section and content) DATE CREATED AUTHOR 09/19/2017 [facility] DATE CREATED AUTHOR AUTHOR'S ORGANIZ ATION 01/07/2025 [facility] DATE CREATED AUTHOR AUTHOR'S ORGANIZ ATION 01/22/2025 [facility] Goals (unrecognized section and content) Goals may [...] MD Primary Care Provider, Attending Provider Active [facility] Laboratory Chief Relationship Specialty Start Date End Date Luis [...] Youssef DO Attending Provider, Referring Provider Active Clinical Genetics Laboratory Chief Relationship Specialty Start Date End Date Luis E Watson Chi PCP - General Family Medicine 12/12/12 [facility] Laboratory Chief Relationship Specialty Start Date End Date Luis E Watson Chi PCP - [facility] Medicine 12/12/12 Clinical Genetics Laboratory Chief Relationship Specialty Start Date End Date Luis E Watson Chi PCP - [facility] Family Medicine 12/12/12 Team Status: Active Member [...] July 03, 2024 End: July 03, 2024 Clinical Genetics Laboratory Chief Relationship Specialty Start Date End Date Luis E Watson Chi PCP - [facility] Family Medicine 12/12/12 Team Status: Active Member [...] or prosecute any alcohol or drug abuse patient.[facility] the event this information is protected by the Federal Confidentiality of Alcohol and Drug Abuse Patient Records regulations: The Federal rules restrict any use of the information to criminally investigate or prosecute any alcohol or drug abuse patient.[facility] Hospital[facility] the event this information is protected by the Federal Confidentiality of Alcohol and Drug Abuse Patient Records regulations: The Federal rules restrict any use of the information to criminally investigate or prosecute any alcohol or drug abuse patient.[facility] Hospital[facility] the event this information is protected by the Federal Confidentiality of Alcohol and Drug Abuse Patient Records regulations: The Federal rules restrict any use of the information to criminally investigate or prosecute any alcohol or drug abuse patient.[facility] Hospital[facility] the event this information is protected by the Federal Confidentiality of Alcohol and Drug Abuse Patient Records regulations: The Federal rules restrict any use of the information to criminally investigate or prosecute any alcohol or drug abuse patient.[facility] HospitalIn the event this information is protected by the Federal Confidentiality of Alcohol and Drug Abuse Patient Records regulations: The Federal rules restrict any use of the information to criminally investigate or prosecute any alcohol or drug abuse patient.[facility] Hospital[facility] the event this information is protected by the Federal Confidentiality of Alcohol and Drug Abuse Patient Records regulations: The Federal rules restrict any use of the information to criminally investigate or prosecute any alcohol or drug abuse patient.[facility] Reason for Visit (unrecogniz ed section [...] BE BASED ON THE PRIMARY CLINICAL RECORDS. [employer] [facility]. provides no warranty or guarantee of the accuracy or completeness of information in this document.
[2025-03-01] MEDS: 0.9% Normal Saline (1000mL) 1,000 ML 50 ML IV (19:55)
[2025-03-01 20:49] VITALS: BP 144/90; PULSE 98; RESP 18; TEMP 36.6; O2SAT 99
[2025-03-01] MEDS: DiphenhydrAMINE 50 MG/ML Syringe 25 MG IV (21:37)
[2025-03-01] MEDS: 0.9% Saline Lock 10 ML Syringe IV (21:41)
[2025-03-02] VITALS (9 sets, daily range): BP systolic 94–131; BP diastolic 53–79; PULSE 70–85; RESP 16–18; TEMP 36.3–37.2; O2SAT 93–99; BMI 30.2
[2025-03-02] MEDS: 0.9% Saline Lock 10 ML Syringe IV ×2 (00:24→08:21)
--- NOTE | 2025-03-02 07:00 | EKG12_ITS ---
Test Reason : P Blood Pressure : */* mmHG Vent. Rate : 88 BPM Atrial Rate : 88 BPM P-R Int : 140 ms QRS Dur : 88 ms QT Int : 348 ms P-R-T Axes : 41 20 52 degrees QTcB Int : 421 ms Normal sinus rhythm Normal ECG No previous ECGs available Confirmed by Neo Santos ([id number]), editor in chief newspaper OLIVIA ACOSTA ([id number]) on 03/03/2025 5:52:10 AM Referred By: Confirmed By: Neo Santos
--- NOTE | 2025-03-02 08:00 | CALC_PTH ---
PATIENT: OSVALDO MCCLURE LOC: MS3 U#:[id number] AGE/SX: 49/F ROOM: NV318 RE03/01/[address]: Dr. Madhu Saha MD : 1975 BED: 1 DIS: 03/02/2025 SPEC #: [id number] RECD: 03/02/25 12:56 STATUS: STEVENSON CARRASCO #: [id number] CORRINA: 03/02/25 08:[address]: Madhu Saha DEPT: SURGICAL PATHOLOGY RECD BY: Mariluz Sweeney ENTERED: 03/02/25 14:17 SP TYPE: Calculi OTHR DR: Dr. Florian Johns MD Tissues: CALCULI Procedures: Surgery Specimen Level I HEADER OPERATION: Cysto, basket extraction, insertion stent PRE-OP DIAGNOSIS: Renal colic on right side, ureterolithiasis TISSUE SUBMITTED: A- Renal calculi GROSS DIAGNOSIS A. Renal calculus, extraction: - Urolithiasis (gross examination only). - Sent for chemical analysis; a separate report will follow. COMMENT The calculus is submitted in its entirety for chemical stone analysis. The results from this study will be reported separately. GROSS DESCRIPTION A. Received fresh labeled the patient's name and date of . Designated as renal calculi is a 0.3 cm irregular brown calculus. No sections are submitted. The specimen is gross examination only. The specimen is sent for stone analysis. OK [id number]
[2025-03-02] MEDS: DiphenhydrAMINE 50 MG/ML Syringe 25 MG IV (08:20)
[2025-03-02] MEDS: 0.9% Normal Saline (1000mL) 1,000 ML 15 ML IV (11:08)
--- NOTE | 2025-03-02 11:37 | PRE.ANES_ITS ---
ASA Classification* ASA Classification ASA Classification: 2 Assessment & Plan Anesthesia* Anesthesia Assessment Anesthesia Assessment: Discussed sedation and/or anesthesia options, risks, benefits, and alternatives with patient/parents/legal guardian/POA. Questions invited. The patient/parents/legal guardian/POA seems to understand and agrees to proceed with anesthesia plan. Reviewed the physical assessment, medical history, allergy history and patient home medications list prior to surgery/procedure/anesthetic and documented any changes. Performed airway and anesthesia risk assessments. Anesthesia Type Anesthesia Type: MAC History Source History Obtained from:: Patient and Chart Anesthesia Focused Assessment* Temperature: 98.9 F Pulse Rate: 80 Blood Pressure: 131/79 Respiratory Rate: 18 Pulse Ox: 99 Oxygen Delivery Method: Room Air Airway Assessment Mouth opens: >3 cm Mallampati Score: III Teeth Condition: Intact Neck Range of motion (ROM): Limited ROM (Slight Decrease) Labs Anesthesia Preop lab: CBC WBC, (4.4-11.0) 11.7 K/mm3 H 03/01/25, 14:18 RBC, (4.2-5.4) 4.36 M/mm3 03/01/25, 14:18 Hgb, (12.0-15.0) 13.2 g/dL 03/01/25, 14:18 Hct, (37-47) 39.7 % 03/01/25, 14:18 Plt Count, (150-450) 368 K/mm3 03/01/25, 14:18 CHEMISTRY Potassium, (3.3-5.1) 4.1 mmol/L 03/01/25, 14:18 Sodium, (133-145) 136 mmol/L 03/01/25, 14:18 BUN, (4-19) 14 mg/dL 03/01/25, 14:18 Creatinine, (0.70-1.20) 1.27 mg/dL H 03/01/25, 14:18 Glucose, (70-99) 122 mg/dL H 03/01/25, 14:18 POC Glucose, (70-110) 85 mg/dL 02/23/20, 11:22 TSH, (0.300-4.200) 0.866 uIU/mL Today, 07:11 COAG PT, (11.7-14.9) 12.7 SECONDS 11/23/20, 07:13 Urine Test Negative Negative 07/03/24, 07:00 Pre-Assessment Diagnosis/Proposed Procedure Planned Operative Procedure(s): Cystoscopy, insertion of stent, right. 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 When Was Last Pacemaker Check QUESTION #4 FULL TEXT: You/Your Family Experience fever (hyperthermia) with Anesthesia Last Oral Intake Last Oral intake: Last Oral Intake NPO since 00:00 03/02/25 08:25 Meds taken in AM with sips of No 03/02/25 08:25 water? Meds patient instructed to take am of surgery PONV PONV - underwater hunter trapper: PONV - underwater hunter trapper Female HX of Motion Sickness HX of N/V After Surgery Non-Smoker Duration of Surgery greater than 60 minutes Number of Risk Factors PONV Score Height & Weight Height & Weight: Anesthesia: Height & Weight Height 5 ft 8 in 03/02/25 08:25 Weight: 90.3 kg 03/02/25 08:25 Body Mass Index (BMI) 30.2 03/02/25 08:25 Respiratory Assessment Respiratory Assessment - underwater hunter trapper: Respiratory Tract Infection Hx - underwater hunter trapper Hx Respiratory Tract Infection No 03/02/25 05:41 STOP Sleep Apnea STOP Sleep Apnea - underwater hunter trapper: STOP Sleep Apnea - underwater hunter trapper Hx Hypertension Yes 03/01/25 17:45 Hx Sleep Apnea Yes 03/01/25 17:45 CPAP No 03/01/25 17:45 BIPAP No 03/01/25 17:45 Do you snore loudly (louder than talking or can be heard Do you often feel tired/ fatigued/ sleepy during daytime? Has anyone observed you stop breathing during sleep? STOP Results Positive 03/01/25 17:45 QUESTION #5 FULL TEXT : Do you snore loudly (louder than talking or can be h eard through closed doors)? Tobacco Use History Tobacco Use History - underwater hunter trapper: Tobacco Use History - underwater hunter trapper Tobacco Use Smoking Status Never smoker 03/01/25 17:45 Hx Tobacco Use No 03/01/25 17:45 Years Smoking Packs Smoked per Day Smoking Cessation Date was within the last 15 years Hx Smoking Cessation Date Hx Smoking Cessation Counseling Hematologic Medial History Hematologic Hx - underwater hunter trapper: Hematologic Medical Hx - reconditioner Hx of Blood Transfusion No 03/01/25 17:45 Hx of Transfusion in last 3 No 03/01/25 17:45 Months Date of Last Transfusion (if within last 3 months) Ever experience any problems No 03/01/25 17:45 with transfusion(s)? Specify any problems Hx of Preganancy in last 3 No 03/01/25 17:45 Months Nurse Filling Out Transfusion ABROCK 03/01/25 17:45 & Questions: Date: 03/01/25 03/01/25 17:45 Time: 18:06 03/01/25 17:45 Patient unable to answer at this time (ie. confused, unrespo /Reproduction History /Reproductive History - underwater hunter trapper: /Reproductive Hx- underwater hunter trapper Hx Now No 03/02/25 05:41 Gestational Age (in weeks): EDC: Hx Hx Para Hx Section SAB No 03/02/25 05:41 Does the father of the baby or his family experience fever w Father of the baby Malignant Hypertension history comment Active Medications Active Medications: Current Medications Generic Name Dose Route Start Last Admin Trade Name Freq PRN Reason Stop Dose Admin Acetaminophen 500 mg 03/01/25 20:53 03/01/25 21:39 Acetaminophen 500 Mg Tablet PO 500 mg Q4H PRN PRN Administration Pain Score 1-10 Diphenhydramine HCl 25 mg 03/01/25 20:53 03/02/25 08:20 Diphenhydramine 50 Mg/Ml Syringe IV 25 mg Q6H PRN PRN Administration ITCHING Sodium Chloride 1,000 mls @ 50 mls/hr 03/01/25 18:40 03/02/25 11:08 IV 15 mls/hr .Q20H DAVE Administration Ketorolac Tromethamine 15 mg 03/01/25 19:00 03/02/25 09:55 Ketorolac 15 Mg/Ml Vial IV 03/06/25 19:00 15 mg Q6H PRN PRN Administration Pain 1-10 or Fever Morphine Sulfate 2 mg 03/01/25 18:40 03/02/25 08:21 Morphine 2 Mg/Ml Syringe IV 2 mg Q2H PRN PRN Administration Pain Score 1-5 Ondansetron HCl 4 mg 03/01/25 20:53 03/01/25 21:40 Ondansetron 4 Mg/2 Ml Vial IV 4 mg Q6H PRN PRN Administration NAUSEA Sodium Chloride 10 - 40 ml 03/01/25 18:08 03/02/25 08:21 0.9% Saline Lock 10 Ml Syringe IV 10 ml UD PRN Administration SALINE FLUSH Tamsulosin HCl 0.4 mg 03/01/25 19:00 03/01/25 19:51 Tamsulosin Hcl 0.4 Mg Capsule PO 0.4 mg DAILY@1730 DAVE Administration [facility] Medical History Thyroid disease Non-smoker History of edema Alcohol use Migraine headache Leg cramps History of echocardiogram History of stress test Cardiology follow-up encounter Wears glasses Nonhealing surgical wound Excessive weight loss Intertrigo Shoulder pain Chronic thoracic back pain Chronic neck pain Macromastia Anxiety and depression Hyperlipidemia Gout Obstructive sleep apnea Obesity Hypertension Type 2 diabetes mellitus without complications Home Medications ?Medication ?Instructions ?Recorded ?Last Taken ?Type levothyroxine 88 mcg tablet 88 mcg PO DAILY thyroid 02/28/25 History allopurinol 100 mg tablet 100 mg PO DAILY 06/10/24 History bupropion HCl 300 mg 24 hr tablet, 300 mg PO DAILY 03/2502/28/25 History extended release meloxicam 15 mg tablet 15 mg PO DAILY 06/10/2402/01 History ibuprofen 600 mg tablet 600 mg PO Q6H PRN PRN pain # 20 02/28/25 03/01/25 08:00 Rx TABLETS ondansetron 4 mg disintegrating 4 mg PO Q8H PRN PRN Na usea #10 tabs 02/28/25 02/28/25 Rx tablet oxycodone 5 mg tablet 5 mg PO Q6H PRN pain 3 days #12 02/28/25 03/01/25 08:00 Rx tabs tizanidine 2 mg tablet 2 mg PO Q6H PRN 03/01/25 History Allergy/AdvReac Type Severity Reaction Status Date / Time No Known Allergies Allergy Verified 03/01/25 14:12 Family History Mother CAD (coronary artery disease) [place] age 47 Hypertension Brother Hypertension Diabetes Other Arthritis Surgical History History of tubal ligation Hx of hand surgery History of bilateral breast reduction surgery History of gastric bypass History of carpal tunnel release Social History household members: spouse housing: house Smoking Status: Never smoker alcohol intake: current alcohol intake frequency: holidays/special occasions only substance use type: does not use additional social history: DOES NOT TAKE IBUPROFEN DOES TAKE ASPIRIN NEEDED Review of Systems (Anesthesia) ROS Narrative System reviewed and no additional complaints, except as documented.
[2025-03-02] MEDS: 0.9% Normal Saline (1000mL) 500 ML IV (12:05)
[2025-03-02] MEDS: Cefazolin 1 GM/5 ML Vial 2 GM IV (12:05)
[2025-03-02] MEDS: fentaNYL 100 MCG/2 ML Ampul IV (12:12)
[2025-03-02] MEDS: Lidocaine 1% (5 ml sdv) 5 ML Vial IV (12:12)
[2025-03-02] MEDS: dexMEDEtomidine 200 MCG/2 ML ML 24 MCG IV (12:27)
--- NOTE | 2025-03-02 12:30 | DCINST_ITS ---
Discharge Instructions DC O2, CPAP, BIPAP needs Home O2 Discharge instructions: No Dressing / Incision Discharge Activity: Return to Normal Activity and May Not Drive (while taking narcotic pain medications.) Dressing / Incision Call your doctor if you observe: Fever of 101 or Higher Follow Up Care Please Follow Up With: Madhu Saha MD When: Call [phone] for an appointment Test Results: Test results from this visit will be discussed in further detail at your follow- up appointment, if applicable. Discharge Plan Admission Admit Date/Time: 03/01/25 16:38 Primary Reason for Your Visit: kidney stone Attending Provider: Madhu Saha Primary Care Provider: Florian Johns Discharge Orders/Prescriptions Prescriptions: New cephalexin 500 mg capsule 500 mg PO TID Qty: 15 0RF No Action levothyroxine 88 MCG tablet 88 mcg PO DAILY tizanidine 2 mg tablet 2 mg PO Q6H PRN allopurinol 100 mg tablet 100 mg PO DAILY bupropion HCl 300 mg tablet extended release 24 hr 300 mg PO DAILY meloxicam 15 mg tablet 15 mg PO DAILY ibuprofen 600 mg tablet 600 mg PO Q6H PRN PRN (Reason: pain) Qty: 20 0RF ondansetron 4 mg tablet,disintegrating 4 mg PO Q8H PRN PRN (Reason: Nausea) Qty: 10 0RF oxycodone 5 mg tablet 5 mg PO Q6H PRN (Reason: pain) 3 Days Qty: 12 0RF Referrals / Follow Up: Madhu Saha MD [Med Staff - Active Staff, Urology] Florian Johns MD [Primary Care Provider, Family Practice] Disposition Disposition (needs filled in before D/C Order can be placed): Home, Self Care
--- NOTE | 2025-03-02 12:31 | PCM.OPRPT ---
Operative Report (Standard) Operative Information Date of Procedure: 03/02/25 Pre-Operative Diagnosis: Right ureteral calculi Post-Operative Diagnosis: The same Surgery/Procedure Performed: cystoscopy balloon dilation of the ureter right ureteroscopy basket extraction of stone and stent placement fermenter operator: No Type of Anesthesia: General RN Documented Start/Stop Times: Operation Date: 03/02/25 08:00 Case Time Into Pre-Op 03/02/25 10:58 Anesthesia Start 03/02/25 12:05 Into Room 03/02/25 12:05 Procedure Start 03/02/25 12:17 Procedure Start Time: 12:17 Procedure Stop Time: 12:32 Select all DRAINS/GRAFTS/IMPLANTS that apply: Drains Drain details: 6x26 stent Estimated Blood Loss: None Specimen collected: Yes Description of specimen(s) removed: Stone collected sent as a specimen Description of surgery: Patient taken back to the operating room after smooth induction of anesthesia placed in dorsolithotomy position went into the bladder with a 21 Kazakh rigid cystourethroscope cannulated the right ureter orifice with a Glidewire and a balloon dilator balloon dilated the distal right ureter then went next to the wire with a semirigid ureteroscope was able to get past the area of inflammation I saw the stone I then used a basket and basket out the stone fragment from the distal ureter. I then handed off the stone to sent for analysis and the back went to the bladder with the cystoscope and then we loaded a stent up over the wire and put a stent up on the right side patient is anesthetic was reversed taken back to PACU in stable condition should be discharged home later today if doing okay and follow-up next week for cystoscopy stent removal in the office Surgical Findings: basket extraction of stone successful Complications Complications: No Admit VTE Documentation VTE Present on Admission: No VTE Mechan Device Prophylaxis: SCD's VTE Pharm Prophylaxis ordered?: No
--- NOTE | 2025-03-02 12:43 | PCM.POST.ANE ---
Anesthesia: Postop Eval I Current Vital Signs Temperature: 97.3 F Pulse Rate: 77 Blood Pressure: 96/55 Respiratory Rate: 16 Pulse Ox: 94 Oxygen Delivery Method: Room Air Assessment Airway patent: Yes Spontaneous unlabored respirations: Yes Mental status: Awake and Calm nausea: No Vomiting: No Anesthesia Complication: No Fluid Hydration Crystalloid volume administer (ml): 500 Total IV fluid infused: 500 Progress Note Anesthesia document: Postop Eval 1 completed: Yes
--- NOTE | 2025-03-02 13:53 | PHA.DC.MC.R ---
Pharmacy [facility] Counseling Pharmacy Service has performed discharge medication reconciliation and counseling for this patient. 1. CEPHALEXIN 500MG PO TID X 5 DAYS The patient's discharge medication list was reviewed for discrepancies and discrepancies were resolved. The patient was counseled on the following discharge medications and changes in medications for homegoing were reviewed. The Reason for Use, instructions for use, and potential side effects were reviewed for all new medications. The patient's questions regarding all of their medications were answered. The patient was able to verbally demonstrate an understanding of their discharge medications. Medications at Discharge Home Medications levothyroxine 88 mcg tablet 88 mcg PO DAILY thyroid 06/17/13 allopurinol 100 mg tablet 100 mg PO DAILY 06/10/24 bupropion HCl 300 mg 24 hr tablet, extended release 300 mg PO DAILY 06/10/24 meloxicam 15 mg tablet 15 mg PO DAILY 06/10/24 ibuprofen 600 mg tablet 600 mg PO Q6H PRN PRN pain #20 TABLETS 02/28/25 ondansetron 4 mg disintegrating tablet 4 mg PO Q8H PRN PRN Nausea #10 tabs 02/28/25 oxycodone 5 mg tablet 5 mg PO Q6H PRN pain 3 days #12 tabs 02/28/25 tizanidine 2 mg tablet 2 mg PO Q6H PRN 03/01/25 cephalexin 500 mg capsule 500 mg PO TID #15 caps 03/02/25
--- NOTE | 2025-03-02 20:55 | POSTOPAN2_ITS ---
Anesthesia Postop Eval I Sum Postop Eval Completion status Anesthesia document: Postop Eval 1 completed: Yes Anesthesia Postop Eval I Summary Anesthesia Postop Eval I Summary: Anesthesia Postop Eval I: Assessment Summary Airway patent Yes 03/02/25 12:44 GRANTS MANAGER.[email or web address] Spontaneous unlabored Yes 03/02/25 12:44 GRANTS MANAGER.[email or web address] respirations Mental status Awake,Calm 03/02/25 12:44 GRANTS MANAGER.GDOTT nausea No 03/02/25 12:44 GRANTS MANAGER.GDOTT Vomiting No 03/02/25 12:44 GRANTS MANAGER.GDOTT Anesthesia Postop Eval I: Fluid Summary Crystalloid volume administer 500 03/02/25 12:44 GRANTS MANAGER.GDOTT (ml) Colloids volume administered ( ml) Blood Product volume administered (ml) Total IV fluid infused 500 03/02/25 12:44 GRANTS MANAGER.GDOTT Anesthesia Postop Eval I: Summary Notes Anesthesia Complication No 03/02/25 12:44 GRANTS MANAGER.GDOTT Anesthesia Complication Comment: Post-operative progress note Anesthesia: Postop Eval II Evaluation Mental status: Awake and Calm Pain Level: 1 nausea: No Vomiting: No Complications Anesthesia Complication: No
--- NOTE | 2025-03-02 20:55 | PCM.POSTANE2 ---
Anesthesia Postop Eval I Sum Postop Eval Completion status Anesthesia document: Postop Eval 1 completed: Yes Anesthesia Postop Eval I Summary Anesthesia Postop Eval I Summary: Anesthesia Postop Eval I: Assessment Summary Airway patent Yes 03/02/25 12:44 [email or web address] [email or web address] Spontaneous unlabored Yes 03/02/25 12:44 DIGITAL INTERN.GDOTT respirations Mental status Awake,Calm 03/02/25 12:44 DIGITAL INTERN.GDOTT nausea No 03/02/25 12:44 DIGITAL INTERN.GDOTT Vomiting No 03/02/25 12:44 DIGITAL INTERN.GDOTT Anesthesia Postop Eval I: Fluid Summary Crystalloid volume administer 500 03/02/25 12:44 DIGITAL INTERN.GDOTT (ml) Colloids volume administered ( ml) Blood Product volume administered (ml) Total IV fluid infused 500 03/02/25 12:44 DIGITAL INTERN.GDOTT Anesthesia Postop Eval I: Summary Notes Anesthesia Complication No 03/02/25 12:44 DIGITAL INTERN.GDOTT Anesthesia Complication Comment: Post-operative progress note Anesthesia: Postop Eval II Evaluation Mental status: Awake and Calm Pain Level: 1 nausea: No Vomiting: No Complications Anesthesia Complication: No
[2025-03-11 12:08] LABS: Ca Oxalate, Monohydrate 100 % (.)
== END 2025-03-02 14:45 | disposition home or self-care (01) ==
LOC: ED 15:26 → MS3 16:49
PROVIDERS: Anesthesiology; Admitting Provider Urology; Emergency Provider Surgery; PCP Family Medicine; Visit Provider Urology
PROC: (CPT 52332; principal; 2025-03-02 07:50)
DX: N13.2 Hydronephrosis with renal and ureteral calculous obstruction (principal); E11.9 Type 2 diabetes mellitus without complications; N17.9 Acute kidney failure, unspecified; E78.5 Hyperlipidemia, unspecified; I10 Essential (primary) hypertension; N23 Unspecified renal colic; Z79.899 Other long term (current) drug therapy; Z98.84 Bariatric surgery status
CPT/HCPCS: 52332; 52352; 00910; 36415; 74176; 80053; 81001; 82360; 83036; 84443; 85025; 88300; 93005; 96374; 96375; 96376; 99221; 99284; A4216; C2617; G0378; J2405

== ENCOUNTER → 2025-03-26 | Outpatient (CLI) | payer OTHER, SELFPAY ==
--- NOTE | 2025-03-26 14:40 | US_ITS ---
PROCEDURE: PELVIC W/ TRANSVAGINAL 03/26/2025 REASON FOR EXAM: IUC PLACEMENT, OVARIAN CYST TECHNIQUE: Procedure Code: [id number] Modality: US Procedure: PELVIC W/ TRANSVAGINAL COMPARISON: None. FINDINGS: Measurements: Uterus: 7.3 x 4.3 x 3.9 cm. Endometrial Thickness: 7 mm. Right Ovary: 3.5 x 2.9 x 2.2 cm. Left Ovary: 3.8 x 3.5 x 2.0 cm. TRANSABDOMINAL AND TRANSVAGINAL: Uterus: Anteverted uterus. Normal size, myometrial echotexture, and contour. Endometrium: There is an intrauterine device with a curvilinear configuration. There is questionable penetration to the myometrium. Right ovary: Normal size and echotexture. Left ovary: Normal size and echotexture. No large pelvic mass identified. Other adnexal findings: None. Cul-de-sac: No free intraperitoneal fluid identified. DOPPLER: Color Doppler: Normal color flow doppler signal at both ovaries. Spectral Doppler: Normal arterial inflow and venous outflow signal at both ovaries. US/Pelvic w/ Transvaginal IMPRESSION: Curvilinear appearing intrauterine device within the endometrium, please correl ate with type of intrauterine device placed. Questionable penetration to the myometrium. Consider replacing IUD if clinical ly indicated. Reading Location: [id number]
--- OUTSIDE RECORDS SUMMARY | 2025-03-26 14:40 | XMS RPT_ITS | CCD ---
Author Organization [facility] [place] CliniSynj Care Team Providers Care Vp Strategy Name Role Phone SUNDAR GUARDADO MD Unavailable Unavailable UNASSIGNED, DOCTOR Unavailable Unavailable Dr. Florian Johns Primary Care Provider Dr. Florian Johns Referring Provider [phone] Florian Johns Other Provider Dr. Stephen [...] Provider Dr. Matthew Moyer MD Referring Provider [phone] YASMIN KEE Attending Unavail able JOHN, LUIS [...] Andreas LOVE, Dr. Du Primary Care Physician [phone] João LOVE, Dr. Castro Attending Physician [phone] Dr. Matthew Moyer MD Referring Provider Medications [...] tablet by alexander th once daily. levonorgestrel 0.545930 mg/hr intrauterine system (7 sources) Progestin, Progestin-containing [...] 09, 2024 11:00pm Complies with drug therapy Al-Rn-Fkwx-Fa-Ca Carb-Vit K (8 sources) Start: 02-10-20 Ye-Un-Pzby-Fa-Ca Carb-Vit K Active 1 EACH PO DAILY February 10, 2020 2:09pm Start: 02-10-2020 Lh-Yf-Xspl-Fa- Ca Carb-Vit K Active 1 EACH PO DAILY February 10, 2020 1:00am Start: 02-10-2020 Yo-Bk-Ixzt-Fa- Ca Carb-Vit K Active 1 EACH PO [...] 18, 2017 12:00am September 24, 2019 3:16pm Nw-Nn-Npvx-Fa-Ca Carb-Vit K 1 EACH tablet (3 sources) Start: 0 End: 5 take 1 tablet by mouth once daily Ms-Pb-Yzac-Fa-Ca Carb-Vit K 1 EACH tablet Discontinued 1 NMA PO DAILY February 10, 2020 12:00am June 10, 2024 7:10am vitamin Start: 02-10-2020 End: 06-10-2024 take 1 tablet by mouth once daily Fe-Pk-Jlzu-Fa-Ca Carb-Vit K 1 EACH tablet Discontinued 1 NMA PO DAILY February 10, 2020 1:00am June 10, 2024 8:10am vitamin Start: 02-10-2020 End: 06-10-2024 take 1 tablet by mouth once daily Nn-Aw-Spxq-Fa-Ca Carb-Vit K 1 EACH tablet Discontinued 1 [...] on 01-18-2025 Fluor Guidance for Spine Inj [facility] Imaging Services [address] [place] [address] [id number] Fluor Guidance for Spine Inj MR#: [id number] Acct: [id number] Name: NICOLASA CASTILLO Rep #: [id number] : 1975 F 49 From: Alberto Weiner PCP: Dr. Florian Johns MD Status: [facility] Study: Fluor Guidance for Spine Inj Date of Exam: Exam# [id number] Ordering Dr: Matthew Moyer MD PROCEDURE: FLUOR [...] fluoroscopic images were also obtained. Reading Location: [id number] CC: Dr. Matthew Moyer MD; Dr. Florian Johns MD Property Insurance Agent: Signed [facility] MR/POSTOP.ANEon 01-18-2025 MR/POSTOP.[facility] Medical Records Department [address] [place] [address] Anesthesia Postop Eval I 01/18/25 0805 MR#: [id number] Acct: [id number] Name: NICOLASA CASTILLO Rep #: [id number] : 1975 49 From: Rose Geiger CRNA PCP: Dr. Florian Johns MD Status:[facility] Y Race: C Location: [place] [address] Anesthesia: Postop Eval I Current Vital Signs Temperature: 98.2 F Pulse Rate: 72 Blood Pressure: 110/75 Respiratory Rate: 20 Pulse Ox: 98 Assessment Airway patent: Yes Spontaneous unlabored respirations: Yes nausea: No Vomiting: No Anesthesia Complication: No Fluid Hydration Crystalloid volume administer (ml): 200 Total IV fluid infused: 200 Progress Note Anesthesia document: Postop Eval 1 completed: Yes 01/18/25806 Date Rose Geiger LEAD PROJECT MANAGER Cosigner Signature: Date CC: Signed [facility] MR/[id number] 01-18-2025 MR/POSTOPAN2 [facility] Medical Records Department [address] [place] [address] Anesthesia Postop Eval II 01/18/25 1237 MR#: [id number] Acct: [id number] Name: NICOLASA CASTILLO Rep #: [id number] : 1975 49 From: Jan Daniel MD PCP: Dr. Florian Johns MD Status:[facility] Y Race: C Location: [facility] Anesthesia Postop Eval I Sum Postop Eval Completion status Anesthesia document: Postop Eval 1 completed: Yes Anesthesia Postop Eval I Summary Anesthesia Postop Eval I Summary: Anesthesia Postop Eval I: Assessment Summary Airway patent Yes 01/18/25 08:06 LEAD PROJECT MANAGER.CSIR Spontaneous unlabored Yes 01/18/25 08:06 LEAD PROJECT MANAGER.CSIR respirations Mental status nausea No 01/18/25 08:06 LEAD PROJECT MANAGER.CSIR Vomiting No 01/18/25 08:06 LEAD PROJECT MANAGER.CSIR Anesthesia Postop Eval I: Fluid Summary Crystalloid volume administer 200 01/18/25 08:06 LEAD PROJECT MANAGER.CSIR (ml) Colloids volume administered ( ml) Blood Product volume administered (ml) Total IV fluid infused 200 01/18/25 08:06 LEAD PROJECT MANAGER.CSIR Anesthesia Postop Eval I: Summary Notes Anesthesia Complication No 01/18/25 08:06 LEAD PROJECT MANAGER.CSIR Anesthesia Complication Comment: Post-operative progress note Anesthesia: Postop Eval II Evaluation Mental status: Awake Pain Level: 3 nausea: No Vomiting: No 01/18/25 1237 Date Jan Daniel MD Cosigner Signature: Date CC: Signed Normal [facility] OR-Steroid Inj/Cer Thor/1st Binu 01-18-2025 OR-Steroid Inj/Cer Thor/1st L [facility] Imaging Services [address] [place] [address] [phone] OR-Steroid Inj/Cer Thor/1st L MR#: [id number] Acct: [id number] Name: NICOLASA CASTILLO Rep #: [id number] : 1975 F 49 From: Alberto Weiner PCP: Dr. Florian Johns MD Status: [facility] Study: OR-Steroid Inj/Cer Thor/1st L Date of Exam: Exam# [id number] Ordering Dr: Matthew Moyer MD PROCEDURE: FLUOR [...] fluoroscopic images were also obtained. Reading Location: [id number] CC: Dr. Matthew Moyer MD; Dr. Florian Johns MD Property Insurance Agent: Signed Normal [facility] Operative Reporton 5 Operative Report [facility] Medical Records Department [address] [place] [address] Operative Report 01/18/25 0808 MR#: [id number] Acct: [id number] Name: NICOLASA CASTILLO Rep #: [id number] : 1975 49 From: Matthew Moyer MD PCP: Dr. Florian Johns MD Status:[facility] Location: [place] [address] Operative Report (Standard) Operative Information Date of Procedure: 01/18/25 Pre-Operative Diagnosis: Cervical radiculopathy, cervical spinal stenosis, cervical degenerative disc disease Post-Operative Diagnosis: Cervical radiculopathy, cervical spinal stenosis, cervical degenerative disc disease Surgery/Procedure Performed: Cervical epidural steroid injection interlaminar at C7-T1 under fluoroscopic guidance sales technician home theater: No Type of Anesthesia: Local MAC RN [...] Moyer MD; Dr. Florian Johns MD Signed [facility] CNOVon 01-04-2025 CNOV Office Visit (OBGYWM ) NICOLASA CASTILLO ([id number]) 1975 F Date Time Provider Department 01/04/25 3:50 PM YASMIN KEE OBGYWM During your visit today, we recorded the following information about you: Blood pressure Weight Height 122/74 87.1 kg 1.72 m Yasmin Kee MD 01/04/2025 4:24 PM Signed [employer] offered: Patient declines. Nicolasa is a 49 [...] Living0 SAB0 IAB0 Ectopic0 Multiple0 Live Births0 Thread Winder History LMP: 07/27/2014, IUD Age at Menarche: 14 Age at First : Age at Menopause: Thread Winder History Comments: Sexual Activity: Yes; Male; Rose replaced 07/03/[address] [facility] Contraception: I.U.D. PAST MEDICAL HISTORY Diagnosis Date Diabetes (HCC) Dysmetabolic syndrome Gout Hypercholesteremia Hypertension Hypothyroidism PAST SURGICAL HISTORY Procedure Laterality Date ASPIRATIONAND/INJECTIO N GANGLION CYST ANY LOCATJ Right 04/2023 removal cyst INSERTION OF IUD 07/03/2024 Rose PEREIRA 03/23/2013 Removed 07/03/[address] [facility] OFFICE LEEP 02/13/2013 Negative PAST SURGICAL HISTORY OF 05/2017 gastric bi pass- [facility] REDUCTION OF LARGE BREAST Bilateral 2020 [...] discussed with the Patient or Patient's Authorized Day Spa Manager. As applicable, any other physician, advance practice provider, medical student, or other health professional student that will be observing or involved in the sensitive examination for educational or training purposes was discussed with the Patient or Authorized Day Spa Manager. The Patient or Authorized Day Spa Manager has agreed to proceed with the sensitive [...] external genitalia normal, normal Bartholin's glands, urethra, [place]'s glands, no vulvar lesions, no cervical lesions, [...] Other V (more content not included)... Normal [facility] Breast imaging reportOrdered By: Sherin Mas on 09-22-2024 Study report [facility] Imaging Services [address] [facility] [place] [address] SCRN MAMM (CAD)W/MARISOL BILAT MR#: [id number] Acct: [id number] Name: NICOLASA CASTILLO Rep #: [id number] : 1975 F 49 From: Nii Martinez MD PCP: Dr. Florian Johns MD Status: PRE C Study:SCRN MAMM (CAD)W/MARISOL BILAT Date of Exa m: 09/22/24 Exam# [id number] Ordering Dr: Yasmin Holden MD EXAM: SCRN [...] be mailed to the patient. Reading Location: [id number] CC: Dr Yasmin Crouch MD; Dr. Florian Johns MD ~ Property Insurance Agent: Signed [facility] SCRN MAMM (CAD)W/MARISOL BILATo n 09-22-2024 SCRN MAMM (CAD)W/MARISOL BILAT [facility] Imaging Services [address] [place], [place] [address] SCRN MAMM (CAD)W/MARISOL BILAT MR#: [id number] Acct: [id number] Name: NICOLASA CASTILLO Rep #: [id number] : 1975 F 49 From: Sherin Cardenas i, MD PCP: Dr. Florian Johns MD Status: PRE CLI Study: SCRN MAMM (CAD)W/MARISOL BILAT Date of Exam: 08/31 07/24 Exam# [id number] Ordering Dr: Chauhan MD EXAM: SCRN MAMM [...] be mailed to the patient. Reading Location: [id number] CC: Dr Yasmin Crouch MD; Dr. Florian Johns MD Property Insurance Agent: Signed Normal [facility] Cerv Spine Obl/Flex/Ext Comp on 07-27-2024 Cerv Spine Obl/Flex/Ext Comp [facility] Imaging Services [address] [place] [address] Cerv Spine Obl/Flex/Ext Comp MR#: [id number] Acct: [id number] Name: NICOLASA CASTILLO Rep #: [id number] : 1975 F 49 From: Chin Power MD PCP: Dr. Florian Johns MD Status: REG CLI Study: Cerv Spine Obl/Flex/Ext Comp Date of Exam: Exam# [id number] Ordering Dr: Matthew Moyer MD PROCEDURE: CERV [...] IMPRESSION: NEGATIVE CERVICAL SPINE. Disclaimer: Reading Location: [facility] CC: Dr. Matthew Moyer MD; Dr. Florian Johns MD Property Insurance Agent: Signed [facility] 07-09-2024 [facility] Telephone (OBGYWM) NICOLASA CASTILLO ([id number]) 1975 F Date Time Provider Department 07/09/24 [...] Status:Closed by JENN REYNOLDS on 07/09/[address] [facility] Anion gap in Serum or Plasma Ordered By: Yasmin Crouch on 07-03-2024 Anion gap [Moles/Vol] 12 mmol/L 5-[address] [facility] BUN/creatinine ratioOrdered By: Yasmin Crouch on 07-03-2024 Urea nitrogen/Creatinine [Mass ratio] 31.6 mg/mg High 10-20 [facility] Basic Metabolic Profile (BMP )on 07-03-2024 BUN/CRE 31.6 RATIO High - [facility] Comment on above: Performed By: #### L 501.9520, L500.2500, L400.7600 #### [facility] [address] [place], [address] Calcium [Mass/Vol] 9.2 mg/dL Normal 7.6-11.0 [facility] Comment on above: Performed By: #### L 501.9520, L500.2500, L400.7600 #### [facility] [address] [place], [address] Chloride [Moles/Vol] 108 mmol/L Normal 98-108 [facility] Comment on above: Performed By: #### L 501.9520, L500.2500, L400.7600 #### [facility] [address] [place], [address] CO2 [Moles/Vol] 22.5 mmol/L Normal 21.0-32.0 [facility] Comment on above: Performed By: #### L 501.9520, L500.2500, L400.7600 #### [facility] [address] [place], [address] Creatinine [Mass/Vol] 0.66 mg/dL Low 0.70-1.[address] [facility] Comment on above: Performed By: #### L 501.9520, L500.2500, L400.7600 #### [facility] [address] [place], [address] ECRCL 119.64 ml/min Normal 50-250 [facility] Comment on above: Performed By: #### L 501.9520, L500.2500, L400.7600 #### [facility] [address] [place], [address] GAP 12 Normal 5-15 [facility] Comment on above: Performed By: #### L 501.9520, L500.2500, L400.7600 #### [facility] [address] [place], [address] GFR/1.73 sq M.predicted among non-blacks MDRD (S/P/Bld) [Vol rate/Area] 108 mL/min/{1.73_m2} Normal >60 [facility] Comment on above: Result Comment: mL/m in/1.73m2 CKD-EPI Creatinine Equation (2020) Performed By: #### L 501.9520, L500.2500, L400.7600 #### [facility] [address] [place], [address] Glucose [Mass/Vol] 94 mg/dL Normal 70-99 [facility] Comment on above: Performed By: #### L 501.9520, L500.2500, L400.7600 #### [facility] [address] [place], [address] Potassium [Moles/Vol] 3.9 mmol/L Normal 3.3-5.[address] [facility] Comment on above: Performed By: #### L 501.9520, L500.2500, L400.7600 #### [facility] [address] [place], [address] Sodium [Moles/Vol] 142 mmol/L Normal 133-145 [facility] Comment on above: Performed By: #### L 501.9520, L500.2500, L400.7600 #### [facility] [address] [place], [address] Urea nitrogen [Mass/Vol] 21 mg/dL High 4-19 [facility] Comment on above: Performed By: #### L 501.9520, L500.2500, L400.7600 #### [facility] [address] [place], [address] CBC-Complete Blood Cnt No Di ffon 07-03-2024 Erythrocyte distribution width (RBC) [Ratio] 13.4 % Normal 11.6-14.6 [facility] Comment on above: Performed By: #### L 100.0500 #### [facility] [address] [place], [address] Hematocrit (Bld) [Volume fraction] 33.4 % Low 37-47 [facility] Comment on above: Performed By: #### L 100.0500 #### [facility] [address] [place], [address] Hemoglobin (Bld) [Mass/Vol] 11.0 g/dL Low 12.0-15.0 [facility] Comment on above: Performed By: #### L 100.0500 #### [facility] [address] [place], [address] MCH (RBC) [Entitic mass] 29.3 pg Normal 27.0-32.0 [facility] Comment on above: Performed By: #### L 100.0500 #### [facility] [address] [place], [address] MCHC (RBC) [Mass/Vol] 32.9 g/dL Normal 32-[address] [facility] Comment on above: Performed By: #### L 100.0500 #### [facility] [address] [place], [address] MCV (RBC) [Entitic vol] 88.8 fL Normal 81-99 [facility] Comment on above: Performed By: #### L 100.0500 #### [facility] [address] [place], [address] Platelet mean volume (Bld) [Entitic vol] 10.1 fL Normal 6.2-12.0 [facility] Comment on above: Performed By: #### L 100.0500 #### [facility] [address] [place], [address] Platelets (Bld) [#/Vol] 246 10*3/uL Normal 150-450 [facility] Comment on above: Performed By: #### L 100.0500 #### [facility] [address] [place], [address] RBC (Bld) [#/Vol] 3.76 10*6/uL Low 4.2-5.4 [facility] Comment on above: Performed By: #### L 100.0500 #### [facility] [address] [place], [address] RDW SD 43.8 fl Normal 35.1-43.9 [facility] Comment on above: Performed By: #### L 100.0500 #### [facility] [address] [place], [address] WBC (Bld) [#/Vol] 3.9 10*3/uL Low 4.4-11.0 [facility] Comment on above: Performed By: #### L 100.0500 #### [facility] [address] [place], [address] Carbon dioxide, total [Moles /volume] in Central venous bloodOrdered By: Yasmin Crouch on 07-03-2024 CO2 [Moles/Vol] 22.5 mmol/L 21.0-32.0 [facility] Chloride assayOrdered By: Monte on 07-03-2024 Chloride [Moles/Vol] 108 mmol/L 98-108 [facility] Discharge Instructionon Discharge Instruction [facility] Medical Records Department [address] [place] [address] Instructions for Home/Discharge Instructions 07/03/24 0823 MR#: [id number] Acct: [id number] Name: NICOLASA CASTILLO Rep #: [id number] : 1975 49 From: Yasmin Crouch MD PCP: Dr. Florian Johns MD Status:REG [facility] Discharge Instructions Diet [...] if you need an appointment please call [phone] Test Results: Test results from this visit will be discussed in further detail at your follow-up appointment, if applicable. Discharge Plan Admission Attending Provider: Laura Crouch Primary Care Provider: Florian Johns Instructions Print Language: Palauan Discharge Orders/Prescriptions Prescriptions: No Action levothyroxine 88 [...] CC: Dr. Florian Johns MD Signed Normal [facility] Erythrocyte distribution wid th (RBC) [Ratio]Ordered By: Yasmin Crouch on 07-03-2024 Erythrocyte distribution width (RBC) [Entitic vol] 43.8 fL 35.1-43.9 [facility] Erythrocyte distribution wid th ratioOrdered By: Yasmin Crouch on 07-03-2024 Erythrocyte distribution width (RBC) [Ratio] 13.4 % 11.6-14.6 [facility] Erythrocyte distribution wid th standard deviationOrdered By: Yasmin Jackson on 07-03-2024 Erythrocyte distribution width (RBC) [Ratio] 43.8 fl 35.1-43.9 [facility] Estimation of creatinine amanda aranceOrdered By: Yasmin Crouch on 07-03-2024 Estimated Creatinine Clearance Calc 119.64 ml/min 50-250 [facility] GFR/1.73 sq M.predicted ernie g non-blacks MDRD (S/P/Bld) [Vol rate/Area]Ordered By: Yasmin Crouch on 07-03-2024 Estimated GFR (MDRD) Non-Af Amer 108 >60 [facility] Comment on above: mL/min/1.73m2 CKD-EP I Creatinine Equation (2020) Glomerular filtration rate ( GFR) estimation/1.73 sq m using serum, plasma, or whole bOrdered By: Yasmin Crouch on 07-03-2024 GFR/1.73 sq M.predicted among non-blacks MDRD (S/P/Bld) [Vol rate/Area] 108 mL/min/{1.73_m2} >60 [facility] Comment on above: mL/min/1.73m2 CKD-EP I Creatinine Equation (2020) Hematocrit Auto (Bld) [Volum e fraction]Ordered By: Yasmin Crouch on 07-03-2024 Hematocrit (Bld) [Volume fraction] 33.4 % Low 37-47 [facility] Hemoglobin measurementOrdere d By: Yasmin Crouch on 07-03-2024 Hemoglobin (Bld) [Mass/Vol] 11.0 g/dL Low 12.0-15.0 [facility] MCV (mean corpuscular volume ) determinationOrdered By: Yasmin Crouch on 07-03-2024 MCV (RBC) [Entitic vol] 88.8 fL 81-99 [facility] MR/POSTOP.ANEon 07-03-2024 MR/POSTOP.ANE [facility] Medical Records Department [address] [place] [address] Anesthesia Postop Eval I 07/03/24 0931 MR#: [id number] Acct: [id number] Name: NICOLASA CASTILLO Rep #: [id number] : 1975 49 From: Tamela Desai CRNA PCP: Dr. Florian Johns MD Status:REG SDC Y Race: C Location: [place] [address] Anesthesia: Postop Eval I Current Vital Signs [...] 1 completed: Yes 07/03/2433 Date Tamela Desai LEAD PROJECT MANAGER Cosigner Signature: Date CC: Signed Normal [facility] MR/[id number] 07-03-2024 MR/POSTOPAN2 [facility] Medical Records Department [address] [place] [address] Anesthesia Postop Eval II 07/03/24 1050 MR#: [id number] Acct: [id number] Name: NICOLASA CASTILLO Rep #: [id number] : 1975 49 From: Rose Geiger PCP: Dr. Florian Johns MD Status:REG SDC Y Race: C Location: [place] [address] Anesthesia Postop Eval I Sum Postop Eval Completion status Anesthesia document: Postop Eval 1 completed: Yes Anesthesia Postop Eval I Summary Anesthesia Postop Eval I Summary: Anesthesia Postop Eval I: Assessment Summary Airway patent Yes 07/03/24 09:33 LEAD PROJECT MANAGER.LMIL Spontaneous unlabored Yes 07/03/24 09:33 LEAD PROJECT MANAGER.LMIL respirations Mental status Awake 07/03/24 09:33 LEAD PROJECT MANAGER.LMIL nausea No 07/03/24 09:33 LEAD PROJECT MANAGER.LMIL Vomiting No 07/03/24 09:33 LEAD PROJECT MANAGER.LMIL Anesthesia Postop Eval I: Fluid Summary Crystalloid volume administer 1,000 07/03/24 09:33 LEAD PROJECT MANAGER.LMIL (ml) Colloids volume administered ( ml) Blood Product volume administered (ml) Total IV fluid infused 1,000 07/03/24 09:33 LEAD PROJECT MANAGER.LMIL Anesthesia Postop Eval I: Summary Notes Anesthesia Complication No 07/03/24 09:33 LEAD PROJECT MANAGER.LMIL Anesthesia Complication Comment: Post-operative progress note Anesthesia: Postop Eval II Evaluation Mental status: Awake Pain Level: 2 nausea: No Vomiting: No 07/03/24 1050 Date Rose De Santiago Signature: Date CC: Signed Normal [facility] Mean corpuscular hemoglobin (MCH) determinationOrdered By: Yasmin Jackson on 07-03-2024 MCH (RBC) [Entitic mass] 29.3 pg 27.0-32.0 [facility] Mean corpuscular hemoglobin concentration (MCHC) determinationOrdered By: Yasmin Crouch on 07-03-2024 MCHC (RBC) [Mass/Vol] 32.9 g/dL 32-[address] [facility] Mean platelet volume determi nationOrdered By: Yasmin Crouch on 07-03-2024 Platelet mean volume (Bld) [Entitic vol] 10.1 fL 6.2-12.0 [facility] Operative Reporton 5 Operative Report [facility] Medical Records Department [address] [place] [address] Operative Report 07/03/24 0913 MR#: [id number] Acct: [id number] Name: NICOLASA CASTILLO Rep #: [id number] : 1975 49 From: Yasmin Crouch MD PCP: Dr. Florian Johns MD Status:[facility] Location: [place] [address] Operative Report (Standard) Operative Information Date of Procedure: 07/03/24 Pre-Operative Diagnosis: desires sterilization, dysmenorrhea, heavy menses Post-Operative Diagnosis: same, Omental adhesions Surgery/Procedure Performed: IUD removal, IUD- liletta insertion, laparoscopic bilateral salpingectomy, Lysis of adhesions sales technician home theater: No Type of Anesthesia: General and Local [...] anesthesia. She was then placed in the [facility] and she was prepped and draped in [...] MD; Dr. Florian Johns MD Signed Normal [facility] Platelet countOrdered By: Monte on 07-03-2024 Platelets (Bld) [#/Vol] 246 10*3/uL 150-450 [facility] Potassium (Unsp spec) [Mass/ Vol]Ordered By: Yasmin Crouch on 07-03-2024 Potassium [Moles/Vol] 3.9 mmol/L 3.3-5.[address] [facility] Potassium measurement (mass/ volume)Ordered By: Yasmin Crouch on 07-03-2024 Potassium (Unsp spec) [Mass/Vol] 3.9 mmol/L 3.3-5.1 [facility] ,Urineon 07-03-2024 Beta HCG ( test) Ql (U) Negative Normal [facility] Comment on above: Result Comment: Very dilute urine specimens, as indicated by a low specific gravity, may not contain customer contact representative levels of hCG. If is still suspected, a first morning urine specimen should be collected 48 hours later and tested. Performed By: #### L 501.9520, L500.2500, L400.7600 #### [facility] [address] [place], [address] RBC Auto (Bld) [#/Vol]Ordere d By: Yasmin Crouch on 07-03-2024 RBC (Bld) [#/Vol] 3.76 10*6/uL Low 4.2-5.4 [facility] Serum creatinine measurement (mass/volume)Ordered By: Yasmin Crouch on 07-03-2024 Creatinine [Mass/Vol] 0.66 mg/dL Low 0.70-1.[address] [facility] Serum glucose measurement (m ass/volume)Ordered By: Yasmin Crouch on 07-03-2024 Glucose [Mass/Vol] 94 mg/dL 70-99 [facility] Serum or plasma calcium aby urement (mass/volume)Ordered By: Yasmin Jackson on 07-03-2024 Calcium [Mass/Vol] 9.2 mg/dL 7.6-11.0 [facility] Serum or plasma urea nitroge n measurement (mass/volume)Ordered By: Yasmin Crouch on 07-03-2024 Urea nitrogen [Mass/Vol] 21 mg/dL High 4-19 [facility] Sodium levelOrdered By: Saurav Crouch on 07-03-2024 Sodium [Moles/Vol] 142 mmol/L 133-145 [facility] Surgery Specimen Level IIon 07-03-2024 Surgery Specimen Level II ---- Patient Age/Sex Location Account Attending Physician ---- NICOLASA CASTILLO 49/F [facility] [id number] Dr Yasmin Crouch, ---- Specimen: [id number] Received: 07/03/24 Status: STEVENSON Reed Num: [id number] Spec Type: FALL TUBES Subm Dr: Dr [...] with a smooth and glistening inner lining. Day Spa Manager sections are submitted as follows:A1. First fallopian tube and fimbriated end with cystic structureA2. Second fallopian tube with fimbriated end [facility] 07-03-2024 CPT:48318 ---- Patient Age/Sex Location Account Attending Physician ---- NICOLASA CASTILLO 49/F [facility] [id number] Dr Yasminabelardo Crouch, ---- Signed (signature on file) Dr. Juany King MD 07/08/24 1707 ---- Normal [facility] Comment on above: Performed By: #### P SUII #### [facility] Laboratory [address] [place], [address] TSH DL <= 0.005 mIU/L QnOrde red By: Jan Daniel on 07-03-2024 Thyroid Stimulating Hormone (TSH) 2.140 uIU/mL 0.300-4.200 [facility] TSH Qn 2.140 uIU/mL 0.300-4.200 [facility] Thyroid Stim Hormone (TSH)on 07-03-2024 TSH 2.140 uIU/mL Normal 0.300-4.200 [facility] Comment on above: Performed By: #### L [id number], L500.2500, L400.0440 #### [facility] [address] [place], [address] Urine testOrdered By: Jan Daniel on 07-03-2024 HCG ( test) Ql (U) Negative [facility] Comment on above: Very dilute urine sp ecimens, as indicated by a low specificgravity, may not contain customer contact representative levels of hCG. If is still suspected, a first morning urinespecimen should be collected 48 hours later and tested. White blood cell (WBC) count Ordered By: Yasmin Crouch on 07-03-2024 WBC (Bld) [#/Vol] 3.9 10*3/uL Low 4.4-11.0 [facility] H AND P Exam - OB/GYNon 04- H&P Exam - ENVIRONMENTAL PROTECTION GEOLOGIST [facility] Medical Records Department [address] [place] [address] H P Exam - ENVIRONMENTAL PROTECTION GEOLOGIST 07/02/24 1331 MR#: [id number] Acct: [id number] Name: NICOLASA CASTILLO Rep #: [id number] : 1975 49 From: Yasmin Crouch MD PCP: Dr. Florian Johns MD Status:[facility] Location: [place] [address] History and Physical Date of Admission: 07/03/24 [...] Negative ??? [facility]?? REDUCTION OF LARGE BREAST Bilateral 2019 [...] on 06/09/2024 Note shared with patient 07/02/24 1275 Cosigner Signature (if applicable): CC: Dr Yasmin [...] Dr. Florian Johns MD * Signed Normal [facility] MR/PAT.GRISELon 06-10-2024 MR/PAT.ANE [facility] Medical Records Department [address] [place] [address] PAT - Anesthesia 06/10/24 1114 MR#: [id number] Acct: [id number] Name: NICOLASA CASTILLO Rep #: [id number] : 1975 49 From: Jan Daniel MD PCP: Dr. Florian Johns MD Status:PRE [facility] Y Race: C Location: [facility] Pre-Assessment Diagnosis/Proposed Procedure Planned Operative Procedure(s): LAP SALPINGECTOMY BILAT,REMOVAL MIRENA IUD INSERTION OF LILETTA IUD Anesthesia History Anesthesia History - steward/stewardess smoke room: Anesthesia History - steward/stewardess smoke room Hx Hospitalization No 06/10/24 08:11 Any Problems [...] take am of surgery PONV PONV - steward/stewardess smoke room: PONV - steward/stewardess smoke room Female Yes 06/10/24 08:11 HX of Motion [...] 04/18/23 13:55 Respiratory Assessment Respiratory Assessment - steward/stewardess smoke room: Respiratory Tract Infection Hx - steward/stewardess smoke room Hx Respiratory Tract Infection No 06/10/24 08:11 STOP Sleep Apnea STOP Sleep Apnea - steward/stewardess smoke room: STOP Sleep Apnea - steward/stewardess smoke room Hx Hypertension Yes: NO MEDS SINCE 201706/10/24 [...] Tobacco Use History Tobacco Use History - steward/stewardess smoke room: Tobacco Use History - steward/stewardess smoke room Tobacco Use Smoking Status Never smoker 06/10/24 08:11 Hx Tobacco Use No 06/10/24 08:11 Years Smoking Packs Smoked per Day Smoking Cessation Date was within the last 15 years Hx Smoking Cessation Date Hx Smoking Cessation Counseling Hematologic Medial History Hematologic Hx - steward/stewardess smoke room: Hematologic Medical Hx - 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 [facility] Office Visit (OBGYWM ) NICOLASA CASTILLO ([id number]) 1975 F Date Time Provider Department 06/09/24 [...] 02/13/2013 Negative [facility] REDUCTION OF LARGE BREAST Bilateral 2020 [...] Status:Closed by YASMIN JACKSON on 06/09/[address] [facility] HISTORY PHYSICALon HISTORY PHYSICAL HNO ID: [id number] Author: YASMIN KEE MD Service: ? Author [...] 02/13/2013 Negative PAST SURGICAL HISTORY OF [facility] REDUCTION OF LARGE BREAST Bilateral 2020 [...] history, medications and allergies Yasmin Jackson MD [facility] CNOVon 04-21-2024 [facility] Office Visit (OBGYWM ) ANNANICOLASA Fournier ([id number]) 1975 F Date Time Provider Department 04/21/24 [...] L0 SAB0 IAB0 Ectopic0 Multiple0 Live Births0 Thread Winder History LMP: 07/27/2014, IUD Age at Menarche: Age at First : Age at Menopause: Thread Winder History Comments: Sexual Activity: Yes; Male Contraception: I.U.D. PAST MEDICAL HISTORY Diagnosis Date Diabetes (HCC) Dysmetabolic syndrome Gout Hypercholesteremia Hypertension Hypothyroidism PAST SURGICAL HISTORY Procedure Laterality Date ASPIRATIONAND/INJECTIO N GANGLION CYST ANY LOCATJ Right 04/2023 removal cyst MIRENA 03/23/2013 OFFICE LEEP 02/13/2013 Negative PAST SURGICAL HISTORY OF 05/2017 gastric bi pass- [facility] REDUCTION OF LARGE BREAST Bilateral 2020 [...] which included preparing to see the patient, [id number] patient care, completing clinical documentation, obtaining and/or reviewing separately obtained history, performing a medically appropriate examination, and counseling and educating the patient/family/[facility]. Yasmin Crouch MD Allergies As [...] Status:Closed by YASMIN JACKSON on 04/21/[address] [facility] Laboratory - Chemistry and C hemistry - challengeOrdered By: Jan Daniel on 04-18-2023 HCG ( test) Ql (U) Negative [facility] Comment on above: Very dilute urine sp ecimens, as indicated by a low specificgravity, may not contain customer contact representative levels of hCG. If is still suspected, a first morning urinespecimen should be collected 48 hours later and tested. Basophil percentageOrdered B y: Florian Johns on 02-22-2023 Chloride [Moles/Vol] 106 mmol/L 98-107 [facility] Cholesterol [Mass/Vol] 210 mg/dL <200 [facility] Comment on above: <200 mg/dL Desirable 200-240 mg/dL Borderline >240 mg/dL High Risk Glucose [Mass/Vol] 92 mg/dL 74-106 [facility] Potassium [Moles/Vol] 3.6 mmol/L 3.5-5.[address] [facility] Sodium [Moles/Vol] 139 mmol/L 136-145 [facility] Triglyceride [Mass/Vol] 75 mg/dL <199 [facility] Comment on above: The drugs N-Acetylcy steine and Metamizole may falsely depress this assay.Serum Triglycerides Reference Interval Normal <150 mg/dL Borderline high 150 - 199 mg/dL High 200 - 499 mg/dL Very High > or = 500 mg/dL Laboratory - Chemistry and C hemistry - challengeOrdered By: Florian Johns on 02-22-2023 CO2 [Moles/Vol] 29.0 mmol/L 21.0-32.0 [facility] Free T4 [Mass/Vol] 0.92 ng/dL 0.76-1.46 [facility] Urea nitrogen/Creatinine [Mass ratio] 19.5 mg/mg 10-20 [facility] No Panel InformationOrdered By: Florian Johns on 02-22-2023 Estimated GFR (MDRD) Amer 103 mL/min >60 [facility] Comment on above: GFR Calc Estimated GFR (MDRD) Non-Af Amer 85 mL/min >60 [facility] Comment on above: Non- GFR Calc Free Triiodothyronine (T3) pg/dL 2.3 pg/mL 2.18-3.98 [facility] Thyroid Stimulating Hormone (TSH) 1.32 uIU/mL 0.358-3.74 [facility] Serum or plasma calcium aby urement (mass/volume)Ordered By: Florian Johns on 02-22-2023 Calcium [Mass/Vol] 8.8 mg/dL 8.5-10.1 [facility] Serum or plasma cholesterol in HDL measurement (mass/volume)Ordered By: Florian Johns on 02-22-2023 Cholesterol in HDL [Mass/Vol] 94 mg/dL >40 [facility] Comment on above: The drugs N-Acetylcy steine and Metamizole may falsely depress this assay. Reference Range HDL <40 mg/dL Low HDL Cholesterol HDL >or= 60 mg/dL High HDL Cholesterol Serum or plasma cholesterol in VLDL measurement (mass/volume)Ordered By: Florian Johns on 02-22-2023 Cholesterol in VLDL [Mass/Vol] 15 mg/dL 5-40 [facility] Serum or plasma creatinine m easurement (mass/volume)Ordered By: Florian Johns on 02-22-2023 Creatinine [Mass/Vol] 0.77 mg/dL 0.55-1.[address] [facility] Comment on above: The validity of the calculated GFR & GFRAA in patients over 70 years has not been determined. Clinical correlation is essential. Serum or plasma low density lipoprotein (LDL) cholesterol measurement (mass/volume)Ordered By: Florian Johns on 02-22-2023 Cholesterol in LDL [Mass/Vol] 101 mg/dL 0-130 [facility] Serum or plasma urea nitroge n measurement (mass/volume)Ordered By: Florian Johns on 02-22-2023 Urea nitrogen [Mass/Vol] 15 mg/dL 7-18 [facility] Thin prep Papanicolaou smear with manual screeningOrdered By: Florian Johns on 02-22-2023 Thin prep Papanicolaou smear with manual screening 4 5-15 [facility] Absolute lymphocyte countOrd ered By: Dr. Johns on 08-06-2022 Lymphocytes Auto (Unsp spec) [#/Vol] 1.04 10*3/uL 0.83-4.51 [facility] Basophil percentageOrdered B y: Dr. Johns on 08-06-2022 Basophils/100 WBC (Bld) 1.2 % 0-1 [facility] Chloride [Moles/Vol] 106 mmol/L 98-107 [facility] Eosinophils/100 WBC (Bld) 1.8 % 0-5 [facility] Glucose [Mass/Vol] 89 mg/dL 74-106 [facility] Neutrophils (Bld) [#/Vol] 1.8 10*3/uL 2.0-7.7 [facility] Neutrophils/100 WBC (Bld) 53.1 % 47-70 [facility] Potassium [Moles/Vol] 3.8 mmol/L 3.5-5.[address] [facility] Sodium [Moles/Vol] 141 mmol/L 136-145 [facility] WBC (Bld) [#/Vol] 3.3 10*3/uL 4.4-11.0 [facility] Blood erythrocytes count (nu mber/volume)Ordered By: Dr. Johns on 08-06-2022 RBC (Bld) [#/Vol] 4.03 10*6/uL 4.2-5.4 [facility] Blood hemoglobin measurement (mass/volume)Ordered By: Dr. Johns on 08-06-2022 Hemoglobin (Bld) [Mass/Vol] 12.5 g/dL 12.0-15.0 [facility] Blood lymphocytes/100 leukoc ytesOrdered By: Dr. Johns on 08-06-2022 Lymphocytes/100 WBC (Bld) 31.5 % 19-41 [facility] Blood monocytes/100 leukocyt esOrdered By: Dr. Johns on 08-06-2022 Monocytes/100 WBC (Bld) 12.4 % 0-10 [facility] Blood platelet mean volumeOr dered By: Dr. Johns on 08-06-2022 Platelet mean volume (Bld) [Entitic vol] 10.7 fL 6.2-12.0 [facility] Determination of erythrocyte mean corpuscular volume (MCV)Ordered By: Dr. Johns on 08-06-2022 MCV (RBC) [Entitic vol] 96.8 fL 81-99 [facility] Hematocrit Auto (Bld) [Volum e fraction]Ordered By: Dr. Johns on 08-06-2022 Hematocrit (Bld) [Volume fraction] 39.0 % 37-47 [facility] Laboratory - Chemistry and C hemistry - challengeOrdered By: Dr. Johns on 08-06-2022 CO2 [Moles/Vol] 29.0 mmol/L 21.0-32.0 [facility] Free T4 [Mass/Vol] 0.99 ng/dL 0.76-1.46 [facility] Urea nitrogen/Creatinine [Mass ratio] 23.1 mg/mg 10-20 [facility] Laboratory - Hematology and Cell countsOrdered By: Dr. Johns on 08-06-2022 Erythrocyte distribution width (RBC) [Entitic vol] 43.7 fL 35.1-43.9 [facility] Erythrocyte distribution width (RBC) [Ratio] 12.2 % 11.6-14.6 [facility] Immature granulocytes/100 WBC (Bld) 0.000 % 0.0-0.9 [facility] Comment on above: IG% - Immature Granu locytes (promyelocytes, myelocytes and metamyelocytes) > 1% indicates that a LEFT SHIFT is Present. MCH (RBC) [Entitic mass] 31.0 pg 27.0-32.0 [facility] Nucleated RBC/100 WBC (Bld) [Ratio] 0 % 0-5 [facility] [Mass/Vol]Or dered By: Dr. Johns on 08-06-2022 MCHC (RBC) [Mass/Vol] 32.1 g/dL 32-[address] [facility] No Panel InformationOrdered By: Dr. Johns on 08-06-2022 Estimated GFR (MDRD) Amer 137 mL/min >60 [facility] Comment on above: GFR Calc Estimated GFR (MDRD) Non-Af Amer 113 mL/min >60 [facility] Comment on above: Non- GFR Calc Free Triiodothyronine (T3) pg/dL 2.2 pg/mL 2.18-3.98 [facility] Thyroid Stimulating Hormone (TSH) 1.83 uIU/mL 0.358-3.74 [facility] Platelets bldOrdered By: Dr. Johns on 08-06-2022 Platelets (Bld) [#/Vol] 265 10*3/uL 150-450 [facility] Serum or plasma calcium aby urement (mass/volume)Ordered By: Dr. Johns on 08-06-2022 Calcium [Mass/Vol] 9.0 mg/dL 8.5-10.1 [facility] Serum or plasma creatinine m easurement (mass/volume)Ordered By: Dr. Johns on 08-06-2022 Creatinine [Mass/Vol] 0.60 mg/dL 0.55-1.[address] [facility] Comment on above: The validity of the calculated GFR & GFRAA in patients over 70 years has not been determined. Clinical correlation is essential. Serum or plasma urea nitroge n measurement (mass/volume)Ordered By: Dr. Johns on 08-06-2022 Urea nitrogen [Mass/Vol] 14 mg/dL 7-18 [facility] Thin prep Papanicolaou smear with manual screeningOrdered By: Dr. Johns on 08-06-2022 Thin prep Papanicolaou smear with manual screening 6 5-15 [facility] No Panel InformationOrdered By: Dr. Johns on 02-07-2022 Thyroid Stimulating Hormone (TSH) 1.20 uIU/mL 0.358-3.74 [facility] Laboratory - Chemistry and C hemistry - challengeon 08-29-2021 Free T4 [Mass/Vol] 1.12 ng/dL 0.76-1.46 [facility] Work Phone: [phone] No Panel Informationon 08-29 Free Triiodothyronine (T3) pg/dL 2.6 pg/mL 2.18-3.98 [facility] Work Phone: [phone] Thyroid Stimulating Hormone (TSH) 0.56 uIU/mL 0.358-3.74 [facility] Work Phone: [phone] Laboratory - Microbiology an d Antimicrobial susceptibilityon 08-04-2021 SARS-CoV-2 (COVID-19) RNA NICKO+probe Ql (Unsp spec) Detected Not Detect [facility] Work Phone: Comment on above: Normal Reference Ran ge: Not DetectedMethod:(RT-PCR) real-time reverse transcriptase PCRLuminex LISA Instrument*The Food and Drug Administration (FDA) has issued an Emergency Use Authorization (EAU) for the [employer] SARS-CoV-2 Assay for the rapid detection of [...] Panel Informationon 08-04 Respiratory Panel (PCR) [facility] Work Phone: [phone] Basophil percentageon 2021 Testosterone [Mass/Vol] 4 ng/dL [facility] Work Phone: [phone] Free testosterone percentage on 05-23-2021 Testosterone Free/Testosterone.total [Mass fraction] 1.71 % [facility] Work Phone: [phone] Comment on above: Performed at: [address] [id number] Director: Shyam Kaminski PhD, Phone: [phone] at: [address] [id number] Director: Patricia Washington MD, Phone: [phone] Serum or plasma testosterone free measurement (mass/volume)on 05-23-2021 Testosterone Free [Mass/Vol] 0.07 ng/dL [facility] Work Phone: Laboratory - Microbiology an d Antimicrobial susceptibilityon 05-17-2021 SARS-CoV-2 (COVID-19) RNA NICKO+probe Ql (Unsp spec) Not detected Not Detect [facility] Work Phone: Comment on above: Normal Reference Ran ge: Not DetectedMethod:(RT-PCR) real-time reverse transcriptase PCRLuminex [employer] Instrument*The Food and Drug Administration (FDA) has [...] Glucose mass conc 109 mg/dL High 65-99 [facility] Comment on above: Performed By: #### P LT ####[address] [address] Glucose mass conc 98 mg/dL Normal 65-99 [facility] Comment on above: Performed By: #### P LT ####[address] [address] Glucose mass conc 99 mg/dL Normal 65-99 [facility] Comment on above: Performed By: #### P CGL ####[address] [address] POCT GLUCOSEon 06-12-2017 Glucose mass conc 95 mg/dL Normal 65-99 [facility] Comment on above: Performed By: #### P CGL ####[facility] [address] [place] [address] Glucose mass conc 81 mg/dL Normal 65-99 [facility] Comment on above: Performed By: #### P CGL ####[facility] [address] [place] [address] Glucose mass conc 111 mg/dL High 65-99 [facility] Comment on above: Performed By: #### P CGL ####[facility] [address] [place] [address] Glucose mass conc 93 mg/dL Normal 65-99 [facility] Comment on above: Performed By: #### P CGL ####[facility] [address] [place] [address] Glucose mass conc 81 mg/dL Normal 65-99 [facility] Comment on above: Performed By: #### P CGL ####[facility] [address] [place] [address] UGI W KUBon 06-12-2017 UGI W KUB *FINAL Da te of Service: 06/12/2017 08:32 Adm #: [id number] Dr:KITTY DEE Signoff Dr: KITTY DEEPROCEDURE: UGI [...] Interpreting Physician: KITTY DEE MDOriginleslye Transcribed by/Date: PSCB Jun 14 2017 10:58AOriginal Electronically Signed by/Date: KITTY DEE MD Jun 14 2017 10:58A Addendum Interpreting Physician: Addendum Transcribed by/Date: NO ADDENDUMAddendum Electronically Signed by/Date: Normal [facility] Consulton 06-11-2017 Consult Normal [facility] Discharge Summaryon 06-12-19 18 Discharge Summary Normal [facility] Operative Reporton 8 Operative Report Normal [facility] PLATELETon 06-11-2017 Platelets Normal 150-450 [facility] Comment on above: Result Comment: 280P erformed at [facility] [address] [place] [address] Performed By: #### P LT ####[facility] [address] [place] [address] POCT GLUCOSEon 06-11-2017 Glucose mass conc 144 mg/dL High 65-99 [facility] Comment on above: Performed By: #### P CGL ####[facility] [place] [address] Glucose mass conc 145 mg/dL High 65-99 [facility] Comment on above: Performed By: #### P CGL ####[facility] [place] [address] Glucose mass conc 112 mg/dL High 65-99 [facility] Comment on above: Performed By: #### P CGL ####[facility] [place] [address] Vital Signs Date Time Vital Sign Value Performing Clinician Faci lity 01-18-2025 08:20-0400 Body temperature 97 [degF] Dr. Florian Johns MD Work Phone: [facility] 01-18-2025 08:20-0400 Diastolic blood pressure 79 mm[Hg] Dr. Florian Johns MD Work Phone: [facility] 01-18-2025 08:20-0400 Heart rate 57 /min Dr. Florian Johns MD Work Phone: [facility] 01-18-2025 08:20-0400 Respiratory rate 16 /min Dr. Florian Johns MD Work Phone: [facility] 01-18-2025 08:20-0400 SaO2% (BldA) [Mass fraction] 99 % Dr. Florian Johns MD Work Phone: [phone] [place] [address] 01-18-2025 08:20-0400 Systolic blood pressure 107 mm[Hg] Dr. Florian Johns MD Work Phone: [phone])[phone] [place] [address] 01-18-2025 06:43-0400 Body height 170.[address] Florian Johns MD Work Phone: [phone])768-104571 [place] [address] 01-18-2025 06:43-0400 Body mass index (BMI) [Ratio] 30.5 kg/m2 Dr. Florian Johns MD Work Phone: [phone])002-260471 [place] [address] 01-18-2025 06:43-0400 Body weight 88.[address] Florian Johns MD Work Phone: [phone] [place] [address] 07-03-2024 11:15-0400 Body temperature 98.3 [degF] Dr. Florian Johns MD Work Phone: [phone] [place] [address] 07-03-2024 11:15-0400 Diastolic blood pressure 74 mm[Hg] Dr. Florian Johns MD Work Phone: [phone])[phone] [place] [address] 07-03-2024 11:15-0400 Heart rate 68 /min Dr. Florian Johns MD Work Phone: [phone])211-926371 [place] [address] 07-03-2024 11:15-0400 Respiratory rate 16 /min Dr. Florian Johns MD Work Phone: [phone] [place] [address] 07-03-2024 11:15-0400 SaO2% (BldA) [Mass fraction] 100 % Dr. Florian Johns MD Work Phone: [phone])[phone] [place] [address] 07-03-2024 11:15-0400 Systolic blood pressure 120 mm[Hg] Dr. Florian Johns MD Work Phone: [phone])[phone] [place] [address] 07-03-2024 07:11-0400 Body height 170.[address] Florian Johns MD Work Phone: [phone] [place] [address] 07-03-2024 07:11-0400 Body mass index (BMI) [Ratio] 30.8 kg/m2 Dr. Florian Johns MD Work Phone: [facility] 07-03-2024 07:11-0400 Body weight 89.[address] Florian Johns MD Work Phone: [facility] 06-09-2024 16:11-0400 Body height 170.2 cm Yasmin Jackson MD Work Phone: [facility] 06-09-2024 16:11-0400 Body mass index (BMI) [Ratio] 31.01 kg/m2 Yasmin Jackson MD Work Phone: [facility] 06-09-2024 16:110400 Body weight 89.81 kg Yasmin Jackson MD Work Phone: [facility] 06-09-2024 16:11-0400 Diastolic blood pressure 72 mm[Hg] Yasmin Jackson MD Work Phone: [facility] 06-09-2024 16:11-0400 Systolic blood pressure 134 mm[Hg] Yasmin Jackson MD Work Phone: [facility] 04-21-2024 15:19-0500 Body mass index (BMI) [Ratio] 30.09 kg/m2 Yasmin Jackson MD Work Phone: [facility] 04-21-2024 15:19-0500 Body weight 88 kg Yasmin Jackson MD Work Phone: [facility] 04-21-2024 15:19-0500 Diastolic blood pressure 80 mm[Hg] Yasmin Jackson MD Work Phone: [facility] 04-21-2024 15:19-0500 Systolic blood pressure 124 mm[Hg] Yasmin Jackson MD Work Phone: [facility] 04-18-2023 17:10-0500 Body temperature 97.7 [degF] [facility] 04-18-2023 17:10-0500 Diastolic blood pressure 73 mm[Hg] [facility] 04-18-2023 17:10-0500 Heart rate 59 /min [facility] 04-18-2023 17:10-0500 Respiratory rate 16 /min [facility] 04-18-2023 17:10-0500 SaO2% (BldA) [Mass fraction] 100 % [facility] 04-18-2023 17:10-0500 Systolic blood pressure 125 mm[Hg] [facility] [facility] 04-18-2023 13:55-0500 Body height 172.72 cm [facility] 04-18-2023 13:55-0500 Body mass index (BMI) [Ratio] 27.3 kg/m2 [facility] 04-18-2023 13:55-0500 Body weight 81.4 kg [facility] 06-18-2022 15:47-0400 Body height 172.7 cm Yasmin Jackson MD Work Phone: [facility] 06-18-2022 15:47-0400 Body weight 82.37 kg Yasmin Jackson MD Work Phone: [facility] 06-18-2022 15:47-0400 Diastolic blood pressure 74 mm[Hg] Yasmin Jackson MD Work Phone: [facility] 06-18-2022 15:47-0400 Systolic blood pressure 120 mm[Hg] Yasmin Jackson MD Work Phone: [facility] Encounters Encounter Date Encounter Type Care Provider Facility Start: 01-18-2025 End: 01-18-2025 Admission to same day surgery center Dr. Matthew Moyer MD -Surgical Day Care Start: 01-18-2025 End: 01-18-2025 ambulatory Matthew Moyer Facility:[facility] Start: 01-04-2025 End: 01-04-2025 ambulatory YASMIN JACKSON Facility:[facility] Start: 01-04-2025 Encounter for gynecological examination (general) (routine) without abnormal findings YASMIN JACKSON [facility] Start: 09-22-2024 End: 09-22-[address] Florian Johns MD Work Phone: -Outpatient Breast Imaging Start: 09-22-2024 End: 09-22-[address] Yasmin Crouch MD -Outpatient Breast Imaging Work Phone: Start: 09-22-2024 End: 09-22-2024 ambulatory Yasmin Crouch Facility:[facility] Start: 07-27-2024 End: 07-27-[address] Matthew Moyer MD -Radiology [facility] Work Phone: Start: 07-27-2024 End: 07-27-2024 ambulatory Matthew Moyer Facility:[facility] Start: 07-09-2024 End: 07-09-2024 Telephone encounter Yasmin Jackson MD Work Phone: OB/Gynecology Start: 07-03-2024 End: 07-03-2024 Admission to same day surgery center Dr Yasmin Crouch MD -Surgical Day Care Start: 07-03-2024 End: 07-03-[address] Florian Johns MD Work Phone: [facility] Work Phone: Start: 06-09-2024 End: 06-09-2024 ambulatory LUIS E WATSON Facility:[facility] Start: 06-09-2024 End: 06-09-2024 Patient encounter procedure Yasmin Jackson MD Work Phone: OB/Gynecology Comment on above: Sterilization consul t (Primary Dx); Abnormal uterine bleeding (AUB); Dysmenorrhea; Pre-op exam Start: 06-09-2024 End: 06-09-2024 Preprocedural examination done Yasmin Jackson MD Work Phone: [facility] Start: 06-03-2024 End: 06-03-2024 Admission to same day surgery center Yasmin Jackson MD Work Phone: OB/Gynecology Comment on above: surgery confirmation Start: 06-03-2024 End: 06-03-2024 E-mail encounter from caregiver Yasmin Jackson MD Work Phone: OB/Gynecology Start: 04-21-2024 End: 04-21-2024 ambulatory LUIS E JOVANNY WATSON Facility:[facility] Start: 04-21-2024 End: 04-21-2024 Patient [...] 04-18-2023 Admission to same day surgery center [facility]-Surgical Day Care Start: 04-18-2023 End: 04-18-2023 ambulatory [facility] Work Phone: Start: 02-22-2023 End: 02-22-2023 ambulatory [facility] Work Phone: Start: 02-22-2023 End: 02-22-2023 Patient encounter procedure [facility] Work Phone: Start: 08-06-2022 End: 08-06-[address] Florian Johns Work Phone: [facility] Work Phone: Start: 08-06-2022 End: 08-06-[address] [facility] Start: 06-27-2022 End: 06-27-[address] Florian Johns Work Phone: [facility] Work Phone: Start: 06-27-2022 End: 06-27-[address] Florian Johns Work Phone: [facility]-Outpatient Breast Imaging Start: 06-18-2022 End: 06-18-2022 Patient encounter procedure Yasmin Jackson MD Work Phone: OB/Gynecology Comment on above: Encounter for gyneco logical examination (general) (routine) without abnormal findings (Primary Dx); Encounter for screening mammogram for breast cancer Start: 06-18-2022 End: 06-18-2022 Patient encounter status Yasmin Jackson MD Work Phone: OB/Gynecology Start: 04-16-2022 Non-patient / Non-visit Dr. Orlin Johns Work Phone: [facility] Start: 04-16-2022 End: 04-16-[address] Florian Johns Work Phone: [facility] Work Phone: Start: 04-16-2022 End: 04-16-[address] Florian Johns Work Phone: [facility]-Pulmonary Services/Neurology Start: 02-07-2022 End: 02-07-2022 ambulatory [facility] Work Phone: Start: 02-07-2022 End: 02-07-2022 Patient encounter procedure [facility] Start: 08-29-2021 End: 08-29-2021 Patient encounter procedure [facility] Start: 08-04-2021 End: 08-04-2021 Patient encounter procedure [facility]Labor[facility], Specimen Start: 05-23-2021 End: 05-23-2021 Patient encounter procedure [facility] Start: 05-17-2021 End: 05-17-2021 Patient encounter procedure [facility], Specimen Start: 06-11-2017 End: 06-13-2017 Evaluation and management of inpatient SUNDAR GUARDADO Facility:UNKNOWN Start: 03-18-2017 Patient encounter status [facility] Start: 03-18-[address] Florian giraldo MD Work Phone: [facility] Start: 10-17-2016 Ambulatory SUNDAR GUARDADO Facility: [...] Author Start: 05-23-2026 HPV TESTING HPV TESTING [facility] Start: 05-23-2026 PAP TESTING PAP TESTING [facility] Start: 05-23-2026 Screening for malign ant neoplasm of cervix Cervical Cancer Screening [facility] Start: 03-29-2025 ambulatory Ambulatory Facility:[facility] Start: 01-18-2025 Anes dx/ther nerve block/injection prone pos ANESTH N BLOCK/INJ PRONE [facility] Start: 01-18-2025 Njx dx/ther sbst int rlmnr crv/thrc w/img gdn NJX INTERLAMINAR CRV/THRC [facility] Start: 01-18-2025 Patient discharge [facility] Start: 10-07-2024 End: 10-07-2024 Patient encounter procedure 10/07/2024 3:20 PM EDT Office Visit OB/Gynecology [address] [place] [address] Yasmin Kee MD [address] [place] [address] Annual, x2 rescheduled OB/Gynecology Comment on above: Annual, x2 reschedul ed Start: 09-18-2024 End: 09-18-2024 Patient encounter procedure 09/18/2024 4:00 PM EDT Office Visit OB/Gynecology [address] [place], [place] [id number] Yasmin Kee MD [address], [place] [address] Annual OB/Gynecology Comment on above: Annual Start: 09-16-2024 BP Controlled (<130/80) BP Controlle d (<130/80) [facility] Start: 07-20-2024 End: 07-20-2024 Patient encounter procedure 07/20/2024 4:20 PM EDT Office Visit OB/Gynecology [address] [place] [address] Yasmin Kee MD [address] [place] [address] post op / OB/Gynecology Comment on above: post op 4 Start: 07-03-2024 Anesthesia intraperitoneal lower abd w/laps nos ANESTH SURG LOWER ABDOMEN [facility] Start: 07-03-2024 Insertion intrauteri ne device iud INSERT INTRAUTERINE DEVICE [facility] Start: 07-03-2024 Laparoscopy w/rmvl adnexal structures LAPAROSCOPY REMOVE ADNEXA [facility] Start: 07-03-2024 Removal intrauterine device iud REMOVE INTRAUTERINE DEVICE [facility] Start: 07-03-2024 Patient discharge [facility] Start: 07-03-2024 Procedure discontinued [facility] Start: 07-03-2024 Ambulation without limitation [facility] Start: 07-03-2024 Medical regimen orde rs management [facility] Start: 07-03-2024 Medication education [facility] Start: 07-03-2024 Taking patient vital signs [facility] Start: 07-03-2024 Vital signs measurements [facility] Start: 07-03-2024 [facility] Start: 06-09-2024 End: 06-09-2024 Patient encounter procedure 06/09/2024 4:20 PM EDT Office Visit OB/Gynecology [address] [place] [address] Yasmin Kee MD [address] [place] [address] surgery 07/03 OB/Gynecology Comment on above: surgery 07/03 Start: 04-21-2024 End: 04-21-2024 Patient encounter procedure 04/21/2024 3:20 PM EST Office Visit OB/Gynecology [address] [place] [address] Yasmin Kee MD [address] [place] [address] Consult for bilateral salpingectomy OB/Gynecology Comment on above: Consult for bilatera l salpingectomy Start: 12-01-2023 Covid-19 Vaccine ( season) Covid-19 Vaccine ( season) [facility] Start: 12-01-2023 Influenza vaccination Influenza Vacc ine (#1) [facility] Start: 06-28-2023 Screening for malign ant neoplasm of breast Mammogram Screening [facility] Start: 06-19-2023 BP CONTROLLED (<130/80) BP CONTROLLE D (<130/80) [facility] Start: 04-18-2023 Patient discharge [facility] Start: 04-18-2023 Ambulation without limitation [facility] Start: 04-18-2023 Application of ice collar, cap or bag [facility] Start: 04-18-2023 Application of intermittent pneumatic compression device [facility] Start: 04-18-2023 Catheterization of vein [facility] Start: 04-18-2023 Elevation of affecte d extremity [facility] Start: 04-18-2023 Following clinical pathway protocol [facility] Start: 04-18-2023 Medical regimen orde rs management [facility] Start: 04-18-2023 Procedure discontinued [facility] Start: 04-18-2023 Taking patient vital signs [facility] Start: 04-18-2023 Vital signs measurements [facility] Start: 04-18-2023 Wound care [facility] Start: 04-18-2023 [facility] Start: 04-18-2023 Medication education [facility] Start: 04-01-2023 Behavioral Health Screening Behavioral Health Screening [facility] Start: 11-30-2022 Covid-19 Vaccine ( season) Covid-19 Vaccine () [facility] Start: 04-01-2022 DEPRESSION ASSESSMENT DEPRESSION ASS ESSMENT [facility] Start: 11-30-2021 Influenza vaccination INFLUENZA (#1) [facility] Start: 2021 COLOGUARD (FIT-DNA) COLOGUARD (FIT-D NA) [facility] Start: 2021 Colonoscopy COLONOSCOPY [facility] Start: 2021 COLORECTAL CANCER SCREENING COLORECTAL CANCER SCREENING [facility] Start: [address] [facility] Start: 2021 FECAL OCCULT BLOOD FECAL OCCULT BLOO D [facility] Start: 2021 Screening for malign ant neoplasm of colon [facility] Start: 2021 SIGMOIDOSCOPY SIGMOIDOSCOPY [facility] Start: 2016 Mammography MAMMOGRAM [facility] Start: 1995 Hepatitis B Vaccine (1 of 3 - 19+ 3-dose series) Hepatitis B Vaccine (1 of 3 - 19+ 3-dose series) [facility] Start: 1995 Pneumococcal vaccination Pneum ococcal Vaccine (1 of 2 - PCV) [facility] Start: 1995 Urine microalbumin profile [facility] Start: 1994 ANNUAL PCP TEAM TRACTOR CRANE ENGINEER ALMA ROSA DISEASE VISIT ANNUAL PCP TEAM CHRONIC DISEASE VISIT [facility] Start: 1994 Anxiety Screening Anxiety Screening [facility] Start: 1994 BP Controlled (<130/80) BP Controlle d (<130/80) [facility] Start: 1994 Depression Screening Depression Scre ening [facility] Start: 1994 Hepatitis B surface antibody level LDL CHOLESTEROL [facility] Start: 1994 HEPATITIS C SCREENING HEPATITIS C SC [facility] Start: 1994 Hepatitis C screening Hepatitis C Sc [facility] Start: 1994 HIV SCREENING HIV SCREENING [facility] Start: 1994 HIV screening HIV Screening [facility] Start: 1986 3 comp foot exam completed DIABETIC FOOT EXAM [facility] Start: 1986 Diabetic foot examination Diabetic F oot Exam [facility] Start: 1986 Glaucoma screening Dilated Retinal E xam [facility] Start: 1986 Hepatitis B screening URINE ALBUMIN:CREATININE RATIO [facility] Start: 1986 Hepatitis C antibody , confirmatory test DILATED RETINAL EXAM [facility] Start: 1982 PNEUMOCOCCAL (1 - PCV) PNEUMOCOCCAL (1 - PCV) [facility] Start: 1982 Pneumococcal vaccination Pneum ococcal Vaccine (1 of 2 - PCV) [facility] Start: 1981 Hemoglobin A1c measurement HbA1C [facility] Start: 1981 Hemoglobin A1c/Hemoglobin.total in Blood HBA1C [facility] Start: 1976 COVID-19 VACCINE (#1) COVID-19 VACCI NE (#1) [facility] Start: 1976 HEPATITIS B (1 of 3 - 3-dose series) HEPATITIS B (1 of 3 - 3-dose series) [facility] End: 07-18-2023 RORY SCREENING RORY SCREENING Radiology Routine Encounter for screening mammogram for breast cancer 1 Occurrences starting 06/18/2022 until 07/18/2023 [facility] Work Phone: Comment on above: 1 Occurrences starti ng 06/18/2022 until 07/18/2023 Patient referral [facility] Work Phone: [facility] Immunizations Immunization Date Immunization Notes Care Provider Prosper carlin 02-02-2020 influenza virus vacc ine, unspecified formulation Yasmin Jackson MD Work Phone: [facility] Payers Date Payer Category Payer Self-pay [id number] 2022 Private Health Insurance [id number] 2022 Unknown [id number] 2013 Unknown [id number] Unknown [id number] Unknown [id number] Unknown [id number] Unknown [id number] Unknown [id number] Social History Date Type Detail Facility Start: 04-30-2020 End: 04-08-2023 Tobacco smoking status WAIS Unknown if ever smoked [facility] Start: 1975 Sex Assigned At Female [facility] Start: 12-24-2012 End: 01-07-2025 Tobacco smoking status NHIS Never smoked tobacco [facility] Start: 12-24-2012 Tobacco use and exposure Smokeless tobacco non-user [facility] Start: 06-18-2022 End: 07-03-2024 Alcohol intake Current drinker of alcohol (finding) [facility] Start: 12-24-2012 Alcohol Comment occasional [facility] Start: 09-17-2023 End: 06-09-2024 History of Social function [facility] Start: 09-17-2023 End: 06-09-2024 Tobacco use panel [facility] National Score (1-100), lower number is lower risk 80 [facility] Start: 04-04-2021 Gender identity Identifies as female gender (finding) [facility] Start: 04-04-2021 Sexual orientation Heterosexual (fin ding) [facility] Start: 07-03-2024 Sex Female (finding) [facility] NEGATED: Highlighted row Not [facility] Medical Equipment Procedure Code Equipment Code [...] 08/06/2014 10:59 AM Brandy Rdz RN No [facility] 08-06-2014 Are you blind, or do you have serious difficulty seeing, even when wearing glasses No 08/06/2014 10:59 AM Brandy Rdz RN No [facility] 08-06-2014 Do you have serious difficulty walking or climbing stairs No 08/06/2014 10:59 AM Brandy Rdz RN No [facility] 08-06-2014 Do you have difficul ty dressing or bathing No 08/06/2014 10:59 AM Brandy Rdz, YOLIE No [facility] 08-06-2014 Because of a physica l, mental, or emotional condition, do you have difficulty doing errands alone such as visiting a physician's office or shopping No 08/06/2014 10:59 AM Brandy Rdz RN No [facility] Mental Status Date Assessment Result Facility 01-18-2025 Cognitive function Level Of Cons ciousness Follows [facility] Work Phone: 07-03-2024 Cognitive function Voice/Name [facility] Work Phone: 07-03-2024 Cognitive function Patient Omar damico Person;Place;Time [facility] Work Phone: 04-18-2023 Cognitive function Voice/Name [facility] Work Phone: 08-06-2014 Because of a physica l, mental, or emotional condition, do you have serious difficulty concentrating, remembering, or making decisions No 08/06/2014 10:59 AM EDT Brandy Lackey RN No [facility] Clinical Notes 04-16-2022 to 01-18-2025 Telephone Encounter - Jenn Reynolds RN - 07/09/2024 3:00 PM EDTTelephone Encounter - Jenn Reynolds RN - 07/09/2024 3:00 PM EDT Note Date & Type Note Facility 01-18-2025 Consult note [facility] 01-18-2025 Radiology Diagnostic study note [facility] Imaging Services [address] [place] [id number] Fluor Guidance for Spine Inj MR#: [id number] Acct: [id number] Name: NICOLASA CASTILLO Rep #: [id number] : 1975 F 49 From: Valdo Arambula MD PCP: Dr. Florian Johns MD Status: DEP S DE Study:Fluor Guidance for Spine Inj Date of Ex am: 01/18/25 Exam# [id number] Ordering Dr: Matthew Moyer MD PROCEDURE: FLUOR [...] fluoroscopic images were also obtained. Reading Location: [address] CC: Dr. Matthew Moyer MD; Dr. Florian Johns MD ~ Property Insurance Agent: Signed [facility] 01-18-2025 Radiology Diagnostic study note [facility] Imaging Services [address] [place] [address] OR-Steroid Inj/Cer Thor/1st L MR#: [id number] Acct: [id number] Name: NICOLASA CASTILLO Rep #: [id number] : 1975 F 49 From: Valdo Arambula MD PCP: Dr. Florian Johns MD Status: DEP S DC Study:OR-Steroid Inj/Cer Thor/1st L Date of E xam: 01/18/25 Exam# [id number] Ordering Dr: Matthew Moyer MD PROCEDURE: FLUOR [...] fluoroscopic images were also obtained. Reading Location: [address] CC: Dr. Matthew Moyer MD; Dr. Florian Johns MD ~ Property Insurance Agent: Signed [facility] 01-18-2025 Procedure note [facility] 01-18-2025 Consult note [facility] 01-04-2025 Note HNO ID: [id number] Author: YASMIN KEE MD Service: ? 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 Contraception: I.U.D. PAST MEDICAL HISTORY Diagnosis Date Diabetes (HCC) Dysmetabolic syndrome Gout Hypercholesteremia Hypertension Hypothyroidism PAST SURGICAL HISTORY Procedure Laterality Date ASPIRATIONAND/INJECTION GANGLION CYST ANY LOCATJ Right 04/2023 removal cyst INSERTION OF IUD 07/03/2024 Liljesus MIRENA 03/23/2013 Removed 07/03/[address] [facility] OFFICE LEEP 02/13/2013 Negative PAST SURGICAL HISTORY OF 05/2017 gastric [facility] REDUCTION OF LARGE BREAST Bilateral 2020 [...] discussed with the Patient or Patient's Authorized Day Spa Manager. As applicable, any other physician, advance practice provider, medical student, or other health professional student that will be observing or involved in the sensitive examination for educational or training purposes was discussed with the Patient or Authorized Day Spa Manager. The Patient or Authorized Day Spa Manager has agreed to proceed with the sensitive [...] external genitalia normal, normal Bartholin's glands, urethra, [place]'s glands, no vulvar lesions, no cervical lesions, [...] or sooner as needed Yasmin Crouch MD [facility] 07-09-2024 Telephone encounter Note Pt notified [...] questions/concerns at this time. Jenn Reynolds RN [facility] 07-09-2024 Miscellaneous Notes Pt notified and voiced [...] op unless concerns. documented in this encounter [facility] 07-09-2024 Telephone encounter Note Please notify patient that pathology was benign from lap bilateral salpingectomy. She did have small cyst on one of her tubes that was c/w serous cystadenoma that I removed- nothing further. How is she feeling? No need for post op unless concerns. [facility] 07-03-2024 Consult note [facility] 07-03-2024 Consult note Note Date/Time July 03, 2024 9:33am [facility] Medical Records Department [address] [place] [address] Anesthesia Postop Eval I 07/03/24 0931 MR#: [id number] Acct: [id number] Name: NICOLASA CASTILLO Rep #:[id number] : 1975 49 From: Tamela ANDUJAR: Dr. Florian Johns MD Status:REG S DC Y Race: C Location: [place] [address] Anesthesia: Postop Eval I Current Vital Signs [...] Yes 07/03/24932 <Electronically signed by Tamela medeiros LEAD PROJECT MANAGER> Date _ Tamela Desai LEAD PROJECT MANAGER Cosigner Signature: Date CC: ~ Signed [facility] Work Phone: 1(869) 185-746104-04-2025 Discharge summary Author Yasmin Panda [facility] Note Date/Time July 03, 2024 8:24 am [facility] Medical Records Department [address] [place] [id number] Instructions for Home/Discharge Instructions 07/03/24 0823 MR#: [id number] Acct: [id number] Name: NICOLASA CASTILLO Rep #:[id number] : [...] if you need an appointment please call [phone] Test Results: Test results from this visit will be discussed in further detail at your follow- up appointment, if applicable. Discharge Plan Admission Attending Provider: Yasmin Crouch Primary Care Provider: Florian Johns Instructions Print Language: Palauan Discharge Orders/Prescriptions Prescriptions: No Action levothyroxine 88 [...] CC: Dr. Florian Johns MD ~ Signed [facility] Work Phone: 1(358) 362-344304-04-2025 Consult note Author Kaushal Leonardo [facility] Note Date/Time July 03, 2024 7:53 am [facility] Medical Records Department [address] [place] [address] Pre-Anesthesia Evaluation 07/03/24 0747 MR#: [id number] Acct: [id number] Name: NICOLASA CASTILLO Rep #:[id number] : 1975 49 From: Kaushal Leonardo MD PCP: Dr. Florian Johns MD Status:REG S DC Y Race: C Location: [place] [address] ASA Classification* ASA Classification ASA Classification: 2 [...] LILETTA IUD Anesthesia History Anesthesia History - steward/stewardess smoke room: Anesthesia History - steward/stewardess smoke room Hx Hospitalization No 06/10/24 08:11 Any Problems [...] take am of surgery PONV PONV - steward/stewardess smoke room: PONV - steward/stewardess smoke room Female Yes 06/10/24 08:11 HX of Motion [...] 07/03/24 07:11 Respiratory Assessment Respiratory Assessment - steward/stewardess smoke room: Respiratory Tract Infection Hx - steward/stewardess smoke room Hx Respiratory Tract Infection No 06/10/24 08:11 STOP Sleep Apnea STOP Sleep Apnea - steward/stewardess smoke room: STOP Sleep Apnea - steward/stewardess smoke room Hx Hypertension Yes: NO MEDS SINCE 201706/10/24 [...] Tobacco Use History Tobacco Use History - steward/stewardess smoke room: Tobacco Use History - steward/stewardess smoke room Tobacco Use Smoking Status Never smoker 06/10/24 08:11 Hx Tobacco Use No 06/10/24 08:11 Years Smoking Packs Smoked per Day Smoking Cessation Date was within the last 15 years Hx Smoking Cessation Date Hx Smoking Cessation Counseling Hematologic Medial History Hematologic Hx - steward/stewardess smoke room: Hematologic Medical Hx - personal financial counselor Hx of Blood Transfusion No 06/10/24 08:11 [...] confused, unrespo /Reproduction History /Reproductive History - steward/stewardess smoke room: /Reproductive Hx- steward/stewardess smoke room Hx Now No 06/10/24 08:11 Gestational Age [...] Family History Mother CAD (coronary artery disease) [place] age 47 Hypertension Brother Hypertension Diabetes Other [...] Leonardo MD Cosigner Signature: CC: ~ Signed [facility] Work Phone: 1(321) 614-301604-04-2025 Consult note [facility] Medical Records Department [address] [place] [address] Anesthesia Postop Eval I 07/03/24930 MR#: [id number] Acct: [id number] Name: NICOLASA CASTILLO Rep #:[id number] : 1975 49 From: Tamela Desai LEAD PROJECT MANAGER PCP: Dr. Florian Johns MD Status:REG S DC Y Race: C Location: [place] [address] Anesthesia: Postop Eval I Current Vital Signs [...] Postop Eval 1 completed: Yes 07/03/2433 c LEAD PROJECT MANAGER> Date _ Tamela Desai LEAD PROJECT MANAGER Cosigner Signature: Date CC: ~ Signed [facility]04-04-2025 History and physical note Author Yasmin Panda [facility] Note Date/Time July 03, 2024 7:22 am [facility] Medical Records Department [address] [place] [address] H&P Exam - ENVIRONMENTAL PROTECTION GEOLOGIST 07/02/24 1331 MR#: [id number] Acct: [id number] Name: NICOLASA CASTILLO Rep #:[id number] : 1975 49 From: Yasmin Jackson MD PCP: Dr. Florian Johns MD Status:REG S DE Location: [place] [address] History and Physical Date of Admission: 07/03/24 [...] Negative ? [facility] REDUCTION OF LARGE BREAST Bilateral 2019 [...] MD; Dr. Florian Johns MD ~* Signed [facility] Work Phone: 1(430) 662-149504-04-2025 Procedure note [facility] Medical Records Department [address] [place] [address] Operative Report 07/03/24 0913 MR#: [id number] Acct: [id number] Name: NICOLASA CASTILLO Rep #:[id number] : 1975 49 From: Yasmin Jackson MD PCP: Dr. 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 She was then [facility] and she was prepped and [...] Crouch MD; Dr. Florian Johns MD~ Signed [facility]04-04-2025 Discharge summary [facility] Medical Records Department [address] [place] [address] Instructions for Home/Discharge Instructions 07/03/24 0823 MR#: [id number] Acct: [id number] Name: ANNANICOLASA M Rep #:[id number] : [...] if you need an appointment please call [phone] Test Results: Test results from this visit will be discussed in further detail at your follow- up appointment, if applicable. Discharge Plan Admission Attending Provider: Yasmin Crouch Primary Care Provider: Florian Johns Instructions Print Language: Palauan Discharge Orders/Prescriptions Prescriptions: No Action levothyroxine 88 [...] CC: Dr. Florian Johns MD ~ Signed [facility]04-04-2025 Consult note [facility] Medical Records Department [address] [place] [address] Pre-Anesthesia Evaluation 07/03/24 0747 MR#: [id number] Acct: [id number] Name: ANNANICOLASA M Rep #:[id number] : 1975 49 From: Kaushal Leonardo MD PCP: Dr. Florian Johns MD Status:REG S DC Y Race: C Location: [facility]04- ASA Classification* ASA Classification ASA Classification: [...] LILETTA IUD Anesthesia History Anesthesia History - steward/stewardess smoke room: Anesthesia History - steward/stewardess smoke room Hx Hospitalization No 06/10/24 08:11 Any Problems [...] take am of surgery PONV PONV - steward/stewardess smoke room: PONV - steward/stewardess smoke room Female Yes 06/10/24 08:11 HX of Motion [...] 07/03/24 07:11 Respiratory Assessment Respiratory Assessment - steward/stewardess smoke room: Respiratory Tract Infection Hx - steward/stewardess smoke room Hx Respiratory Tract Infection No 06/10/24 08:11 STOP Sleep Apnea STOP Sleep Apnea - steward/stewardess smoke room: STOP Sleep Apnea - steward/stewardess smoke room Hx Hypertension Yes: NO MEDS SINCE 201706/10/24 [...] Tobacco Use History Tobacco Use History - steward/stewardess smoke room: Tobacco Use History - steward/stewardess smoke room Tobacco Use Smoking Status Never smoker 06/10/24 08:11 Hx Tobacco Use No 06/10/24 08:11 Years Smoking Packs Smoked per Day Smoking Cessation Date was within the last 15 years Hx Smoking Cessation Date Hx Smoking Cessation Counseling Hematologic Medial History Hematologic Hx - steward/stewardess smoke room: Hematologic Medical Hx - personal financial counselor Hx of Blood Transfusion No 06/10/24 08:11 [...] confused, unrespo /Reproduction History /Reproductive History - steward/stewardess smoke room: /Reproductive Hx- steward/stewardess smoke room Hx Now No 06/10/24 08:11 Gestational Age [...] Family History Mother CAD (coronary artery disease) [place] age 47 Hypertension Brother Hypertension Diabetes Other [...] MD Cosigner Signature: Date CC: ~ Signed [facility]04-04-2025 History and physical note [facility] Medical Records Department [address] [place] [address] H&P Exam - ENVIRONMENTAL PROTECTION GEOLOGIST 07/02/24 1331 MR#: [id number] Acct: [id number] Name: NICOLASA CASTILLO Rep #:[id number] : 1975 49 From: Yasmin Jackson MD PCP: Dr. Florian Johns MD Status:REG S DE Location: [place] [address] History and Physical Date of Admission: 07/03/24 [...] Negative ? [facility] REDUCTION OF LARGE BREAST Bilateral 2019 [...] and surgical history, medications and allergies Yasmin aJckson MD Office Visit on 06/09/2024 Note shared with patient 07/02/24 1424 Cosigner Signature (if applicable): CC: Dr Yasmin Crouch MD; Dr. Florian Johns MD~ Signed ADDENDUM by Dr Yasmin Crouch MD on 07/03/24 at 0722 Addendum I have examined the patient and the H&P has been reviewed. There are no clinicalchanges since date of exam. 07/03/24 07 Cosigner Signature (if applicable): cc: Dr Yasmin Crouch MD; Dr. Florian Johns MD ~* Signed [facility]03-11-2025 NoteHNO ID: [id number] Author: YASMIN KEE MD Service: ? Author Type: Physician Type: Progress Notes Filed: 06/09/2024 17:27 Note Text:[facility]03-11-2025 History of Present illness Narrative* Yasmin Kee MD - 06/09/2024 5:25 PM EDT [facility] History and physical note * Yasmin Kee [...] SURGICAL HISTORY OF 05/2017 gastric bi pass- [facility] REDUCTION OF LARGE BREAST Bilateral 2020 [...] history, medications and allergies Yasmin Jackson MD [facility]03-11-2025 History and physical note* Yasmin Kee MD [...] 02/13/2013 Negative [facility]ARGE BREAST Bilateral 2020 [...] allergies Yasmin Jackson MD documented in [facility]The [facility]01-[facility]-2025 NoteHNO ID: [id number] Author: YASMIN KEE MD Service: ? Author [...] L0 SAB0 IAB0 Ectopic0 Multiple0 Live Births0 Thread Winder History LMP: 07/27/2014, IUD Age at Menarche: Age at First : Age at Menopause: Thread Winder History Comments: Sexual Activity: Yes; Male Contraception: I.U.D. PAST MEDICAL HISTORY Diagnosis Date Diabetes (HCC) Dysmetabolic syndrome Gout Hypercholesteremia Hypertension Hypothyroidism PAST SURGICAL HISTORY Procedure Laterality Date ASPIRATIONAND/INJECTION GANGLION CYST ANY LOCATJ Right 04/2023 removal cyst MIRENA 03/23/2013 OFFICE LEEP 02/13/2013 Negative PAST SURGICAL HISTORY OF 05/2017 gastric [facility] REDUCTION OF LARGE BREAST Bilateral 2020 [...] which included preparing to see the patient, [id number] patient care, completing clinical documentation, obtaining and/or reviewing separately obtained history, performing a medically appropriate examination, and counseling and educating the patient/family/caregiver. Yasmin Crouch, [facility]01-21-2025 History of Present illness Narrative* Yasmin [...] L0 SAB0 IAB0 Ectopic0 Multiple0 Live Births0 Thread Winder History LMP: 07/27/2014, IUD Age at Menarche: Age at First : Age at Menopause: Thread Winder History Comments: Sexual Activity: Yes; Male Contraception: I.U.D. PAST MEDICAL HISTORY Diagnosis Date Diabetes (HCC) Dysmetabolic syndrome Gout Hypercholesteremia Hypertension Hypothyroidism PAST SURGICAL HISTORY Procedure Laterality Date ASPIRATION&/INJECTION GANGLION CYST ANY LOCATJ Right 04/2023 removal cyst MIRENA 03/23/2013 OFFICE LEEP 02/13/2013 Negative PAST SURGICAL HISTORY OF 05/2017 gastric bi pass- [facility] REDUCTION OF LARGE BREAST Bilateral 2020 [...] which included preparing to see the patient, [id number] patient care, completing clinical documentation, obtaining and/or reviewing separately obtained history, performing a medically appropriate examination, and counseling and educating the patient/family/caregiver. Yasmin Crouch MD documented [facility]01-[facility]-2025 Telephone encounter Note * Telephone Encounter - Desiree Vann RN - 04/09/2024 9:07 AM EST Patient not able to leave work today. Scheduled for another date. Desiree Vann RN [facility]01-09-2025 Miscellaneous Notes* Telephone Encounter - Desiree Vann [...] tubal. Brandy Lackey RN documented in this [facility]The [facility]01-09-2025 Telephone encounter Note * Telephone Encounter - Yasmin Kee MD - 04/09/2024 8:00 AM EST Yes, please schedule with me. I have openings today. [facility]01-08-2025 Telephone encounter Note* Telephone Encounter - Brandy Lackey RN - 04/08/2024 4:50 PM EST Patient last seen for annual exam on 09/17/23. Do you want patient to schedule consult for tubal. Brandy Lackey RN [facility]07-01-2024 Telephone encounter Note* Telephone Encounter - Brandy Lackey RN - 09/30/2023 9:16 AM EDT Patient notified and voiced understanding. Patient states she will contact office if she would liketo see dermatology. Brandy Lackey RN [facility]07-01-2024 Miscellaneous Notes* Telephone Encounter - Brandy Lackey [...] try something like GUILHERME D'OR (sell on [employer]) use erik drops, and can use Spironolactone 10 days out of the month. I would also recommend second opinion by Dermatology. * Telephone Encounter - Pat Marquez LPN - 09/26/2023 4:57 PM EDT Testosterone and DHEA lab results from [facility] received and to Dr. Jcakson to review. Results entered in scanned documents documented in this encounterThe [facility]06-30-2024 Telephone encounter Note * Telephone Encounter - [...] try something like GUILHERME D'OR (sell on [employer]) use erik drops, and can use Spironolactone 10 days out of the month. I would also recommend second opinion by Dermatology. [facility]06-27-2024 Telephone encounter Note* Telephone Encounter - Pat Marquez LPN - 09/26/2023 4:57 PM EDT Testosterone and DHEA lab results from [facility] received and to Dr. Jackson to review. Results entered in scanned documents [facility]2023 Instructions* Patient Instructions* Yasmin Jackson MD - [...] salmon and sardines and vegetables, such as Chadian cabbage, kale, and broccoli. Foods fortified with [...] acid, calcium carbonate is found in some also-gsd-baxsexo antacid products, such as Tums and Rolaids [...] prescribed by your doctor. 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 Nicolasa is a 47 year old who presents for an annual gynecologic exam without complaints. Hair loss stable since last year. Planning trip to [place]. Daughter getting this year. Menses: no menses - Mirena IUD. 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 PAST MEDICAL HISTORY Diagnosis Date Diabetes (HCC) Dysmetabolic syndrome Gout Hypercholesteremia Hypertension Hypothyroidism PAST SURGICAL HISTORY Procedure Laterality Date MIRENA 03/23/2013 OFFICE LEEP 02/13/2013 Negative PAST SURGICAL HISTORY OF 05/2017 gastric [facility] REDUCTION OF LARGE BREAST Bilateral 2020 [...] external genitalia normal, normal Bartholin's glands, urethra, [place]'s glands, no vulvar lesions, no cervical lesions, good vaginal support, physiologic discharge present, normal appearing perineal body and perianal region, IUD strings present BIMANUAL: uterus normal size, shape and consistency, no adnexal masses, and non-tender RECTOVAGINAL: deferred. NEURO: alert and oriented x3,exam grossly non-focal EXTREMITIES: normal ASSESSMENT/PLAN: 1) Health maintenance: Pap/HPV up to date. Mammogram ordered [facility] Nutrition, exercise and routine health maintenance exams reviewed. Calcium/vit d information provided. 2) Contraception: IUD. Contraceptive options reviewed and information provided. 3) STD screening: Declined STD check. 4) Follow up one year or sooner as needed Yasmin Crouch MD documented in this encounterThe [facility]01-16-2023 Procedure noteWooWestern Reserve HospitalConsult note Author Rose Geiger [facility] Note Date/Time July 03, 2024 12:1 0pm [facility] Medical Records Department [address] [place] [address] Anesthesia Postop Eval II 07/03/24 1050 MR#: [id number] Acct: [id number] Name: NICOLASA CASTILLO Rep #:[id number] : 1975 49 From: Rose Geiger PCP: Dr. Florian Johsn MD Status:REG S DC Y Race: C Location: [place] [address] Anesthesia Postop Eval I Sum Postop Eval Completion status Anesthesia document: Postop Eval 1 completed: Yes Anesthesia Postop Eval I Summary Anesthesia Postop Eval I Summary: Anesthesia Postop Eval I: Assessment Summary Airway patent Yes 07/03/24 09:33 LEAD PROJECT MANAGER.LMIL Spontaneous unlabored Yes 07/03/24 09:33 LEAD PROJECT MANAGER.LMIL respirations Mental status Awake 07/03/24 09:33 LEAD PROJECT MANAGER.LMIL nausea No 07/03/24 09:33 LEAD PROJECT MANAGER.LMIL Vomiting No 07/03/24 09:33 LEAD PROJECT MANAGER.LMIL Anesthesia Postop Eval I: Fluid Summary Crystalloid volume administer 1,000 07/03/24 09:33 LEAD PROJECT MANAGER.LMIL (ml) Colloids volume administered ( ml) Blood Product volume administered (ml) Total IV fluid infused 1,000 07/03/24 09:33 LEAD PROJECT MANAGER.LMIL Anesthesia Postop Eval I: Summary Notes Anesthesia Complication No 07/03/24 09:33 LEAD PROJECT MANAGER.LMIL Anesthesia Complication Comment: Post-operative progress note Anesthesia: Postop Eval II Evaluation Mental status: Awake Pain Level: 2 nausea: No Vomiting: No 07/03/24 1050 <Electronically signed by Rose brizuela> Date _ Rose De Santiago Signature: Date CC: ~ Signed [facility] Work Phone: Consult note [facility] Medical Records Department [address] [place] [address] Anesthesia Postop Eval II 01/18/25 1237 MR#: [id number] Acct: [id number] Name: NICOLASA CASTILLO Rep #:[id number] : 1975 49 From: Jan Daniel MD PCP: Dr. Florian Johns MD Status:DEP S DC Y Race: C Location: [facility] Anesthesia Postop Eval I Sum Postop Eval Completion status Anesthesia document: Postop Eval 1 completed: Yes Anesthesia Postop Eval I Summary Anesthesia Postop Eval I Summary: Anesthesia Postop Eval I: Assessment Summary Airway patent Yes 01/18/25 08:06 LEAD PROJECT MANAGER.CSIR Spontaneous unlabored Yes 01/18/25 08:06 LEAD PROJECT MANAGER.CSIR respirations Mental status nausea No 01/18/25 08:06 LEAD PROJECT MANAGER.CSIR Vomiting No 01/18/25 08:06 LEAD PROJECT MANAGER.CSIR Anesthesia Postop Eval I: Fluid Summary Crystalloid volume administer 200 01/18/25 08:06 LEAD PROJECT MANAGER.CSIR (ml) Colloids volume administered ( ml) Blood Product volume administered (ml) Total IV fluid infused 200 01/18/25 08:06 LEAD PROJECT MANAGER.CSIR Anesthesia Postop Eval I: Summary Notes Anesthesia Complication No 01/18/25 08:06 LEAD PROJECT MANAGER.CSIR Anesthesia Complication Comment: Post-operative progress note Anesthesia: Postop Eval II Evaluation Mental status: Awake Pain Level: 3 nausea: No Vomiting: No 01/18/25 1237 > Date _ Jan Daniel MD Cosigner Signature: Date CC: ~ [facility]igned [facility] Author Jan ricky [facility] Note Date/Time January 18, 2025 9 :44am [facility] Medical Records Department [address] [place] [address] Pre-Anesthesia Evaluation 01/18/25 0755 MR#: [id number] Acct: [id number] Name: NICOLASA CASTILLO Rep #:[id number] : 1975 49 From: Jan Daniel MD PCP: Dr. Florian Johns MD Status:REG S DC Y Race: C Location: [place] [address] ASA Classification* ASA Classification ASA Classification: 2 [...] Cervical Epidural Anesthesia History Anesthesia History - steward/stewardess smoke room: Anesthesia History - steward/stewardess smoke room Hx Hospitalization No 01/07/25 13:33 Any Problems [...] take am of surgery PONV PONV - steward/stewardess smoke room: PONV - steward/stewardess smoke room Female Yes 01/07/25 13:33 HX of Motion [...] 01/18/25 06:43 Respiratory Assessment Respiratory Assessment - steward/stewardess smoke room: Respiratory Tract Infection Hx - steward/stewardess smoke room Hx Respiratory Tract Infection No 01/07/25 13:33 STOP Sleep Apnea STOP Sleep Apnea - steward/stewardess smoke room: STOP Sleep Apnea - steward/stewardess smoke room Hx Hypertension Yes: NO MEDS SINCE 201701/07/25 [...] Tobacco Use History Tobacco Use History - steward/stewardess smoke room: Tobacco Use History - steward/stewardess smoke room Tobacco Use Smoking Status Never smoker 01/07/25 13:33 Hx Tobacco Use No 01/07/25 13:33 Years Smoking Packs Smoked per Day Smoking Cessation Date was within the last 15 years Hx Smoking Cessation Date Hx Smoking Cessation Counseling Hematologic Medial History Hematologic Hx - steward/stewardess smoke room: Hematologic Medical Hx - personal financial counselor Hx of Blood Transfusion No 01/07/25 13:33 [...] confused, unrespo /Reproduction History /Reproductive History - steward/stewardess smoke room: /Reproductive Hx- steward/stewardess smoke room Hx Now No 01/07/25 13:33 Gestational Age [...] Family History Mother CAD (coronary artery disease) [place] age 47 Hypertension Brother Hypertension Diabetes Other [...] no additional complaints, except as documented. 01/18/25 9325 <Electronically signed by Jan Daniel MD > Date _ Jan Florign Signature: Date CC: ~ Signed [facility] Work Phone: Consult note Author Rose Geiger [facility] Note Date/Time January 18, 2025 9 :07am [facility] Medical Records Department [address] [place] [address] Anesthesia Postop Eval I 01/18/25 0805 MR#: [id number] Acct: [id number] Name: NICOLASA CASTILLO Rep #:[id number] : 1975 49 From: Rose Geiger CRNA PCP: Dr. Florian Johns MD Status:REG S DC Y Race: C Location: [place] [address] Anesthesia: Postop Eval I Current Vital Signs [...] 01/18/25 0807 <Electronically signed by Rose brizuela LEAD PROJECT MANAGER> Date _ Rose Geiger LEAD PROJECT MANAGER Cosigner Signature: Date CC: ~ Signed [facility] Work Phone: Consult note Author Jan Daniel [facility] Note Date/Time January 18, 2025 1 :37pm [facility] Medical Records Department [address] [place] [address] Anesthesia Postop Eval II 01/18/25 1237 MR#: [id number] Acct: [id number] Name: NICOLASA CASTILLO Rep #:[id number] : 1975 49 From: Jan Daniel MD PCP: Dr. Florian Johns MD Status:DEP S MONCHO Y Race: C Location: [facility] Anesthesia Postop Eval I Sum Postop Eval Completion status Anesthesia document: Postop Eval 1 completed: Yes Anesthesia Postop Eval I Summary Anesthesia Postop Eval I Summary: Anesthesia Postop Eval I: Assessment Summary Airway patent Yes 01/18/25 08:06 LEAD PROJECT MANAGER.CSIR Spontaneous unlabored Yes 01/18/25 08:06 LEAD PROJECT MANAGER.CSIR respirations Mental status nausea No 01/18/25 08:06 LEAD PROJECT MANAGER.CSIR Vomiting No 01/18/25 08:06 LEAD PROJECT MANAGER.CSIR Anesthesia Postop Eval I: Fluid Summary Crystalloid volume administer 200 01/18/25 08:06 LEAD PROJECT MANAGER.CSIR (ml) Colloids volume administered ( ml) Blood Product volume administered (ml) Total IV fluid infused 200 01/18/25 08:06 LEAD PROJECT MANAGER.CSIR Anesthesia Postop Eval I: Summary Notes Anesthesia Complication No 01/18/25 08:06 LEAD PROJECT MANAGER.CSIR Anesthesia Complication Comment: Post-operative progress note Anesthesia: Postop Eval II Evaluation Mental status: Awake Pain Level: 3 nausea: No Vomiting: No 01/18/25 1237 <Electronically signed by Jan Daniel MD > Date _ Jan Daniel [facility] Signature: Date CC: ~ Signed [facility] Work Phone: Evaluation noteNo assessment information available [facility] Work Phone: Evaluation note* Diagnosis Encounter for gynecological examination (general) (routine) without abnormal findings- Primary Encounter for screening mammogram for breast cancer [facility] Diagnosis Sterilization consult- Primary Other general counseling and advice for contraceptive management [facility]* Diagnosis Sterilization consult- Primary Other general counseling and advice for contraceptive management Abnormal uterine bleeding (AUB) Dysmenorrhea Pre-op exam Preoperative examination, unspecified documented in this encounter [facility] Discharge instructions Additional Instructions Implant Used?: [facility] Work Phone: Reason for referral (narrative)* Diagnostic Procedure Only (Routine) - Pending Review Specialty Diagnoses / Procedures Referred By Contac t Referred To Contact [facility] Diagnoses Encounter for screening mammogram for breast cancer Procedures RORY SCREENING SCREENING MAMMOGRAPHY BI 2-VIEW BREAST [employer] Yasmin Kee MD [address] [place] [address] [facility] [address] [place] [address] Referral ID Status Reason Start Date Expiration Date Visits Requested Visits Authorized [id number] Pending Review Auto-Generat ed Referral 06/18/2022 07/18/2023 1 1 [facility] for referral (narrative)No reason for referral information availableWKettering Memorial Hospital Work Phone: Summary Purpose Family History Relationship Condition Age at Onset Recorded Date/T elvira Not Specified Arthritis Unknown mother Coronary artery disease Unknown Hypertension Unknown brother Hypertension Unknown Diabetes mellitus Unknown Advance Directives Advance Directive Response Recorded Date/ Time Advance Directives No June 17, 2 014 2:14pm Living Will No February 21 2 020 4:30pm Power of Audit Analyst No February 22, 2020 4:30pm Advance Directive Response Recorded Date/ Time Advance Directives No June 17 2 014 1:14pm Living Will No February 21, 2 020 3:30pm Power of Audit Analyst No February 22, 2020 3:30pm Advance Directive Response Recorded Date/ Time Advance Directives No June 17, 2 014 1:14pm Living Will No April 08 1:20pm Power of Audit Analyst No April 08, 2 024 1:20pm Advance Directive Response Recorded Date/ Time Living Will No June 10, 2024 8:11am Do you have a Healthcare Power of Audit Analyst? No June 10, 2024 8:11am Advance Directives No June 17, 2 014 2:14pm Advance Directive Response Recorded Date/ Time Do you have a Healthcare Power of Audit Analyst? No January 07, 2025 12:33pm Advance Directives [...] AUTHOR 09/19/2017 [facility] DATE CREATED AUTHOR AUTHOR'S ORGANIZ ATION 01/07/2025 [facility] DATE CREATED AUTHOR AUTHOR'S ORGANIZ ATION 01/22/2025 [facility] Goals (unrecognized section and content) Goals [...] MD Primary Care Provider, Attending Provider Active Vp Strategy Relationship Specialty Start Date End Date Luis [...] Youssef DO Attending Provider, Referring Provider Active Vp Strategy Relationship Specialty Start Date End Date Luis E Watson Chi PCP - General Family Medicine 12/12/12 Vp Strategy Relationship Specialty Start Date End Date Luis E Watson Chi PCP - [facility] Medicine 12/12/12 Vp Strategy Relationship Specialty Start Date End Date Luis E Watson Chi PCP - [facility] Family Medicine 12/12/12 Team Status: Active Member [...] July 03, 2024 End: July 03, 2024 Vp Strategy Relationship Specialty Start Date End Date Luis E Watson Chi PCP - [facility] Family Medicine 12/12/12 Team Status: Active Member [...] or prosecute any alcohol or drug abuse patient.[facility] the event this information is protected by the Federal Confidentiality of Alcohol and Drug Abuse Patient Records regulations: The Federal rules restrict any use of the information to criminally investigate or prosecute any alcohol or drug abuse patient.[facility] the event this information is protected by the Federal Confidentiality of Alcohol and Drug Abuse Patient Records regulations: The Federal rules restrict any use of the information to criminally investigate or prosecute any alcohol or drug abuse patient.[facility] the event this information is protected by the Federal Confidentiality of Alcohol and Drug Abuse Patient Records regulations: The Federal rules restrict any use of the information to criminally investigate or prosecute any alcohol or drug abuse patient.[facility] the event this information is protected by the Federal Confidentiality of Alcohol and Drug Abuse Patient Records regulations: The Federal rules restrict any use of the information to criminally investigate or prosecute any alcohol or drug abuse patient.[facility] the event this information is protected by the Federal Confidentiality of Alcohol and Drug Abuse Patient Records regulations: The Federal rules restrict any use of the information to criminally investigate or prosecute any alcohol or drug abuse patient.[facility] the event this information is protected by the Federal Confidentiality of Alcohol and Drug Abuse Patient Records regulations: The Federal rules restrict any use of the information to criminally investigate or prosecute any alcohol or drug abuse patient.[facility] Reason for Visit (unrecogniz ed section and [...] BE BASED ON THE PRIMARY CLINICAL RECORDS. [employer] [facility]. provides no warranty or guarantee of the accuracy or completeness of information in this document.
== END | disposition home or self-care (01) ==
LOC: US 14:36
PROVIDERS: PCP Family Medicine; Referring Provider Obstetrics & Gynecology; Visit Provider Obstetrics & Gynecology
DX: N83.201 Unspecified ovarian cyst, right side (principal); Z97.5 Presence of (intrauterine) contraceptive device
CPT/HCPCS: 76830; 76856

== ENCOUNTER 2025-03-29 05:54 | Day surgery (SDC) | payer OTHER, SELFPAY ==
[2025-03-29] VITALS (9 sets, daily range): BP systolic 121–128; BP diastolic 74–80; PULSE 56–68; RESP 16–18; TEMP 36.5–37.3; O2SAT 95–99; BMI 29.7
--- OUTSIDE RECORDS SUMMARY | 2025-03-29 05:58 | XMS RPT_ITS | CCD ---
Author Organization [facility] CliniSyct Care Team Providers Care Edge Burnisher Name Role Phone SUNDAR GUARDADO MD Unavailable Unavailable UNASSIGNED, DOCTOR Unavailable Unavailable Dr. Florian Johns Primary Care Provider Dr. Florian Johns Referring Provider Dr. Florian Johns Other Provider Dr. Stephen Dawson Attending Provider John, Luis E Chi Primary Care Provider [phone] Dr. Florian Johns Primary Care Provider Dr. Florian oJhns Referring Provider [phone] Florian Johns Other Provider Dr. Stephen Dawson Attending Provider Dr. Dao Dawson Attending Provider John, Luis E Chi Primary Care Provider Dr. Florian Johns MD Primary Care Provider [phone] Willa LOVE, Dr. Hoffman Attending Provid er Dr. Yasmin Crouch MD Referring Provid er Dr. Matthew Moyer MD Attending Provider Dr. Matthew Moyer MD Referring Provider YASMIN EKE Attending Unavail able JOHN, LUIS E CHI [...] Physician João LOVE, Dr. Castro Attending Physician [phone] Dr. Matthew Moyer MD Referring Provider Medications [...] tablet by alexander th once daily. levonorgestrel 0.040691 mg/hr intrauterine system (7 sources) Progestin, Progestin-containing [...] 09, 2024 11:00pm Complies with drug therapy Me-My-Zddt-Fa-Ca Carb-Vit K (8 sources) Start: 02-10-20 Ei-Rv-Igzo-Fa-Ca Carb-Vit K Active 1 EACH PO DAILY February 10, 2020 2:09pm Start: 02-10-2020 Yl-Yr-Kugg-Fa- Ca Carb-Vit K Active 1 EACH PO DAILY February 10, 2020 1:00am Start: 02-10-2020 Gh-Qn-Xqui-Fa- Ca Carb-Vit K Active 1 EACH PO [...] 18, 2017 12:00am September 24, 2019 3:16pm Ak-Ak-Mtbh-Fa-Ca Carb-Vit K 1 EACH tablet (3 sources) Start: 0 End: 5 take 1 tablet by mouth once daily Sy-Rs-Pqbn-Fa-Ca Carb-Vit K 1 EACH tablet Discontinued 1 NMA PO DAILY February 10, 2020 12:00am June 10, 2024 7:10am vitamin Start: 02-10-2020 End: 06-10-2024 take 1 tablet by mouth once daily Qn-Fh-Ueaa-Fa-Ca Carb-Vit K 1 EACH tablet Discontinued 1 NMA PO DAILY February 10, 2020 1:00am June 10, 2024 8:10am vitamin Start: 02-10-2020 End: 06-10-2024 take 1 tablet by mouth once daily Tf-Ak-Fgdt-Fa-Ca Carb-Vit K 1 EACH tablet Discontinued 1 [...] on 01-18-2025 Fluor Guidance for Spine Inj [facility] Imaging Services [address] [place] [address] 667171 Fluor Guidance for Spine Inj MR#: [id number] Acct: [id number] Name: NICOLASA CASTILLO Rep #: [id number] : 1975 F 49 From: Alberto Weiner PCP: Dr. Florian Johns MD Status: [facility] Study: Fluor Guidance for Spine Inj Date of Exam: Exam# [id number] Ordering Dr: Matthew Moyer MD PROCEDURE: FLUOR [...] fluoroscopic images were also obtained. Reading Location: [id number] CC: Dr. Matthew Moyer MD; Dr. Florian Johns MD Supervisor Sound Technician: Signed [facility] MR/POSTOP.ANEon 01-18-2025 MR/POSTOP.[facility] Medical Records Department [address] [place] [address] Anesthesia Postop Eval I 01/18/25 0805 MR#: [id number] Acct: [id number] Name: NICOLASA CASTILLO Rep #: [id number] : 1975 49 From: Rose Geiger CRNA PCP: Dr. Florian Johns MD Status:[facility] Y Race: C Location: [place] [address] Anesthesia: Postop Eval I Current Vital Signs Temperature: 98.2 F Pulse Rate: 72 Blood Pressure: 110/75 Respiratory Rate: 20 Pulse Ox: 98 Assessment Airway patent: Yes Spontaneous unlabored respirations: Yes nausea: No Vomiting: No Anesthesia Complication: No Fluid Hydration Crystalloid volume administer (ml): 200 Total IV fluid infused: 200 Progress Note Anesthesia document: Postop Eval 1 completed: Yes 01/18/25806 Date Rose Geiger LOWER IN SUPERVISOR Cosigner Signature: Date CC: Signed [facility] MR/JPUSDULS2xm 01-18-2025 MR/POSTOPAN2 [facility] Medical Records Department [address] [place] [address] Anesthesia Postop Eval II 01/18/25 1237 MR#: [id number] Acct: [id number] Name: NICOLASA CASTILLO Rep #: [id number] : 1975 49 From: Jan Daniel MD PCP: Dr. Florian Johns MD Status:[facility] Y Race: C Location: [facility] Anesthesia Postop Eval I Sum Postop Eval Completion status Anesthesia document: Postop Eval 1 completed: Yes Anesthesia Postop Eval I Summary Anesthesia Postop Eval I Summary: Anesthesia Postop Eval I: Assessment Summary Airway patent Yes 01/18/25 08:06 LOWER IN SUPERVISOR.CSIR Spontaneous unlabored Yes 01/18/25 08:06 LOWER IN SUPERVISOR.CSIR respirations Mental status nausea No 01/18/25 08:06 LOWER IN SUPERVISOR.CSIR Vomiting No 01/18/25 08:06 LOWER IN SUPERVISOR.CSIR Anesthesia Postop Eval I: Fluid Summary Crystalloid volume administer 200 01/18/25 08:06 LOWER IN SUPERVISOR.CSIR (ml) Colloids volume administered ( ml) Blood Product volume administered (ml) Total IV fluid infused 200 01/18/25 08:06 LOWER IN SUPERVISOR.CSIR Anesthesia Postop Eval I: Summary Notes Anesthesia Complication No 01/18/25 08:06 LOWER IN SUPERVISOR.CSIR Anesthesia Complication Comment: Post-operative progress note Anesthesia: Postop Eval II Evaluation Mental status: Awake Pain Level: 3 nausea: No Vomiting: No 01/18/25 1237 Date Jan Daniel MD Cosigner Signature: Date CC: Signed Normal [facility] OR-Steroid Inj/Cer Thor/1st Binu 01-18-2025 OR-Steroid Inj/Cer Thor/1st L [facility] Imaging Services [address] [place] [address] [id number] OR-Steroid Inj/Cer Thor/1st L MR#: [id number] Acct: [id number] Name: NICOLASA CSATILLO Rep #: [id number] : 1975 F 49 From: Alberto Weiner PCP: Dr. Florian Johns MD Status: [facility] Study: OR-Steroid Inj/Cer Thor/1st L Date of Exam: Exam# [id number] Ordering Dr: Matthew Moyer MD PROCEDURE: FLUOR [...] fluoroscopic images were also obtained. Reading Location: [id number] CC: Dr. Matthew Moyer MD; Dr. Florian Johns MD Supervisor Sound Technician: Signed Normal [facility] Operative Reporton 5 Operative Report [facility] Medical Records Department [address] [place] [address] Operative Report 01/18/25 0808 MR#: [id number] Acct: [id number] Name: NICOLASA CASTILLO Rep #: [id number] : 1975 49 From: Matthew Moyer MD PCP: Dr. Florian Johns MD Status:[facility] Location: [place] [address] Operative Report (Standard) Operative Information Date of Procedure: 01/18/25 Pre-Operative Diagnosis: Cervical radiculopathy, cervical spinal stenosis, cervical degenerative disc disease Post-Operative Diagnosis: Cervical radiculopathy, cervical spinal stenosis, cervical degenerative disc disease Surgery/Procedure Performed: Cervical epidural steroid injection interlaminar at C7-T1 under fluoroscopic guidance gang head saw operator: No Type of Anesthesia: Local MAC RN [...] Moyer MD; Dr. Florian Johns MD Signed [facility] CNOVon 01-04-2025 CNOV Office Visit (OBGYWM ) NICOLASA CASTILLO ([id number]) 1975 F Date Time Provider Department 01/04/25 3:50 PM YASMIN KEE OBGYWM During your visit today, we recorded the following information about you: Blood pressure Weight Height 122/74 87.1 kg 1.72 m Yasmin Kee MD 01/04/2025 4:24 PM Signed Education Sales Consultant offered: Patient declines. Nicolasa is a 49 [...] Living0 SAB0 IAB0 Ectopic0 Multiple0 Live Births0 Commercial Helicopter Pilot History LMP: 07/27/2014, IUD Age at Menarche: 14 Age at First : Age at Menopause: Commercial Helicopter Pilot History Comments: Sexual Activity: Yes; Male; Rose replaced 07/03/24 by DM at [facility] Contraception: I.U.D. PAST MEDICAL HISTORY Diagnosis Date Diabetes (HCC) Dysmetabolic syndrome Gout Hypercholesteremia Hypertension Hypothyroidism PAST SURGICAL HISTORY Procedure Laterality Date ASPIRATIONAND/INJECTIO N GANGLION CYST ANY LOCATJ Right 04/2023 removal cyst INSERTION OF IUD 07/03/2024 Rose PEREIRA 03/23/2013 Removed 07/03/24 by DM at [facility] OFFICE LEEP 02/13/2013 Negative PAST SURGICAL HISTORY OF 05/2017 gastric bi pass- [facility] REDUCTION OF LARGE BREAST Bilateral 2020 [...] discussed with the Patient or Patient's Authorized Principal Embedded Software Engineer. As applicable, any other physician, advance practice provider, medical student, or other health professional student that will be observing or involved in the sensitive examination for educational or training purposes was discussed with the Patient or Authorized Principal Embedded Software Engineer. The Patient or Authorized Principal Embedded Software Engineer has agreed to proceed with the sensitive [...] external genitalia normal, normal Bartholin's glands, urethra, Wild Rose's glands, no vulvar lesions, no cervical lesions, [...] Other V (more content not included)... Normal [facility] Breast imaging reportOrdered By: Sherin Mas on 09-22-2024 Study report [facility] Imaging Services [address] [place] [place] [address] SCRN MAMM (CAD)W/MARISOL BILAT MR#: [id number] Acct: [id number] Name: NICOLASA CASTILLO Rep #: [id number] : 1975 F 49 From: Nii Martinez MD PCP: Dr. Florian Johns MD Status: PRE C Study:SCRN MAMM (CAD)W/MARISOL BILAT Date of Exa m: 09/22/24 Exam# [id number] Ordering Dr: Yasmin Holden MD EXAM: SCRN [...] be mailed to the patient. Reading Location: [id number] CC: Dr Yasmin Crouch MD; Dr. Florian Johns MD ~ Supervisor Sound Technician: Signed [facility] SCRN MAMM (CAD)W/MARISOL BILATo n 09-22-2024 SCRN MAMM (CAD)W/MARISOL BILAT [facility] Imaging Services [address] [place], [place] [address] SCRN MAMM (CAD)W/MARISOL BILAT MR#: [id number] Acct: [id number] Name: NICOLASA CASTILLO Rep #: [id number] : 1975 F 49 From: Sherin Cardenas i, MD PCP: Dr. Florian Johns MD Status: PRE CLI Study: SCRN MAMM (CAD)W/MARISOL BILAT Date of Exam: 08/31 07/24 Exam# [id number] Ordering Dr: Chauhan MD EXAM: SCRN MAMM [...] be mailed to the patient. Reading Location: [id number] CC: Dr Yasmin Crouch MD; Dr. Florian Johns MD Supervisor Sound Technician: Signed Normal [facility] Cerv Spine Obl/Flex/Ext Comp on 07-27-2024 Cerv Spine Obl/Flex/Ext Comp [facility] Imaging Services [address] [place] [address] Cerv Spine Obl/Flex/Ext Comp MR#: [id number] Acct: [id number] Name: NICOLASA CASTILLO Rep #: [id number] : 1975 F 49 From: Chin Power MD PCP: Dr. Florian Johns MD Status: REG CLI Study: Cerv Spine Obl/Flex/Ext Comp Date of Exam: Exam# [id number] Ordering Dr: Matthew Moyer MD PROCEDURE: CERV [...] IMPRESSION: NEGATIVE CERVICAL SPINE. Disclaimer: Reading Location: [facility] CC: Dr. Matthew Moyer MD; Dr. Florian Johns MD Supervisor Sound Technician: Signed [facility] 07-09-2024 [facility] [employer] [facility] Telephone (OBGYWM) NICOLASA CASTILLO ([id number]) 1975 F Date Time Provider Department 07/09/24 [...] (cervical intraepithelial neoplasia gra*02/13/2013 Encounter Status:Closed by JNEN REYNOLDS on 07/09/24 Normal [facility] Anion gap in Serum or Plasma Ordered By: Yasmin Crouch on 07-03-2024 Anion gap [Moles/Vol] 12 mmol/L 5-15 [facility] BUN/creatinine ratioOrdered By: Yasmin Crouch on 07-03-2024 Urea nitrogen/Creatinine [Mass ratio] 31.6 mg/mg High 10-20 [facility] Basic Metabolic Profile (BMP )on 07-03-2024 BUN/CRE 31.6 RATIO High - [facility] Comment on above: Performed By: #### L 501.9520, L500.2500, L400.7600 #### [facility] Laboratory [address] [place], [address] Calcium [Mass/Vol] 9.2 mg/dL Normal 7.6-11.0 [facility] Comment on above: Performed By: #### L 501.9520, L500.2500, L400.7600 #### [facility] Laboratory [address] [place], [address] Chloride [Moles/Vol] 108 mmol/L Normal 98-108 [facility] Comment on above: Performed By: #### L 501.9520, L500.2500, L400.7600 #### [facility] Laboratory [address] [place], [address] CO2 [Moles/Vol] 22.5 mmol/L Normal 21.0-32.0 [facility] Comment on above: Performed By: #### L 501.9520, L500.2500, L400.7600 #### [facility] Laboratory [address] [place], [address] Creatinine [Mass/Vol] 0.66 mg/dL Low 0.70-1.20 [facility] Comment on above: Performed By: #### L 501.9520, L500.2500, L400.7600 #### [facility] Laboratory [address] [place], [address] ECRCL 119.64 ml/min Normal 50-250 [facility] Comment on above: Performed By: #### L 501.9520, L500.2500, L400.7600 #### [facility] Laboratory [address] [place], [address] GAP 12 Normal 5-15 [facility] Comment on above: Performed By: #### L 501.9520, L500.2500, L400.7600 #### [facility] Laboratory [address] [place], [address] GFR/1.73 sq M.predicted among non-blacks MDRD (S/P/Bld) [Vol rate/Area] 108 mL/min/{1.73_m2} Normal >60 [facility] Comment on above: Result Comment: mL/m in/1.73m2 CKD-EPI Creatinine Equation (2020) Performed By: #### L 501.9520, L500.2500, L400.7600 #### [facility] Laboratory [address] [place], [address] Glucose [Mass/Vol] 94 mg/dL Normal 70-99 [facility] Comment on above: Performed By: #### L 501.9520, L500.2500, L400.7600 #### [facility] Laboratory [address] [place], [address] Potassium [Moles/Vol] 3.9 mmol/L Normal 3.3-5.1 [facility] Comment on above: Performed By: #### L 501.9520, L500.2500, L400.7600 #### [facility] Laboratory [address] [place], [address] Sodium [Moles/Vol] 142 mmol/L Normal 133-145 [facility] Comment on above: Performed By: #### L 501.9520, L500.2500, L400.7600 #### [facility] Laboratory [address] [place], [address] Urea nitrogen [Mass/Vol] 21 mg/dL High 4-19 [facility] Comment on above: Performed By: #### L 501.9520, L500.2500, L400.7600 #### [facility] Laboratory [address] [place], [address] CBC-Complete Blood Cnt No Di ffon 07-03-2024 Erythrocyte distribution width (RBC) [Ratio] 13.4 % Normal 11.6-14.6 [facility] Comment on above: Performed By: #### L 100.0500 #### [facility] Laboratory [address] [place], [address] Hematocrit (Bld) [Volume fraction] 33.4 % Low 37-47 [facility] Comment on above: Performed By: #### L 100.0500 #### [facility] Laboratory [address] [place], [address] Hemoglobin (Bld) [Mass/Vol] 11.0 g/dL Low 12.0-15.0 [facility] Comment on above: Performed By: #### L 100.0500 #### [facility] Laboratory [address] [place], [address] MCH (RBC) [Entitic mass] 29.3 pg Normal 27.0-32.0 [facility] Comment on above: Performed By: #### L 100.0500 #### [facility] Laboratory [address] [place], [address] MCHC (RBC) [Mass/Vol] 32.9 g/dL Normal 32-36 [facility] Comment on above: Performed By: #### L 100.0500 #### [facility] Laboratory [address] [place], [address] MCV (RBC) [Entitic vol] 88.8 fL Normal 81-99 [facility] Comment on above: Performed By: #### L 100.0500 #### [facility] Laboratory [address] [place], [address] Platelet mean volume (Bld) [Entitic vol] 10.1 fL Normal 6.2-12.0 [facility] Comment on above: Performed By: #### L 100.0500 #### [facility] Laboratory [address] [place], [address] Platelets (Bld) [#/Vol] 246 10*3/uL Normal 150-450 [facility] Comment on above: Performed By: #### L 100.0500 #### [facility] Laboratory [address] [place], [address] RBC (Bld) [#/Vol] 3.76 10*6/uL Low 4.2-5.4 [facility] Comment on above: Performed By: #### L 100.0500 #### [facility] Laboratory [address] [place], [address] RDW SD 43.8 fl Normal 35.1-43.9 [facility] Comment on above: Performed By: #### L 100.0500 #### [facility] Laboratory [address] [place], [address] WBC (Bld) [#/Vol] 3.9 10*3/uL Low 4.4-11.0 [facility] Comment on above: Performed By: #### L 100.0500 #### [facility] Laboratory [address] [place], [address] Carbon dioxide, total [Moles /volume] in Central venous bloodOrdered By: Yasmin Crouch on 07-03-2024 CO2 [Moles/Vol] 22.5 mmol/L 21.0-32.0 [facility] Chloride assayOrdered By: Monte on 07-03-2024 Chloride [Moles/Vol] 108 mmol/L 98-108 [facility] Discharge Instructionon Discharge Instruction [facility] Medical Records Department [address] [place] [address] Instructions for Home/Discharge Instructions 07/03/24 0823 MR#: [id number] Acct: [id number] Name: NICOLASA CASTILLO Rep #: [id number] : 1975 49 From: Yasmin Crouch MD PCP: Dr. Florian Johns MD Status:REG [facility] Discharge Instructions Diet Discharge Diet: No restrictions [...] if you need an appointment please call [phone] Test Results: Test results from this visit will be discussed in further detail at your follow-up appointment, if applicable. Discharge Plan Admission Attending Provider: Laura Crouch Primary Care Provider: Florian Johns Instructions Print Language: South African Discharge Orders/Prescriptions Prescriptions: No Action levothyroxine 88 [...] CC: Dr. Florian Johns MD Signed Normal [facility] Erythrocyte distribution wid th (RBC) [Ratio]Ordered By: Yasmin Crouch on 07-03-2024 Erythrocyte distribution width (RBC) [Entitic vol] 43.8 fL 35.1-43.9 [facility] Erythrocyte distribution wid th ratioOrdered By: Yasmin Crouch on 07-03-2024 Erythrocyte distribution width (RBC) [Ratio] 13.4 % 11.6-14.6 [facility] Erythrocyte distribution wid th standard deviationOrdered By: Yasmin Jackson on 07-03-2024 Erythrocyte distribution width (RBC) [Ratio] 43.8 fl 35.1-43.9 [facility] Estimation of creatinine amanda aranceOrdered By: Yasmin Crouch on 07-03-2024 Estimated Creatinine Clearance Calc 119.64 ml/min 50-250 [facility] GFR/1.73 sq M.predicted ernie g non-blacks MDRD (S/P/Bld) [Vol rate/Area]Ordered By: Yasmin Crouch on 07-03-2024 Estimated GFR (MDRD) Non-Af Amer 108 >60 [facility] Comment on above: mL/min/1.73m2 CKD-EP I Creatinine Equation (2020) Glomerular filtration rate ( GFR) estimation/1.73 sq m using serum, plasma, or whole bOrdered By: Yasmin Crouch on 07-03-2024 GFR/1.73 sq M.predicted among non-blacks MDRD (S/P/Bld) [Vol rate/Area] 108 mL/min/{1.73_m2} >60 [facility] Comment on above: mL/min/1.73m2 CKD-EP I Creatinine Equation (2020) Hematocrit Auto (Bld) [Volum e fraction]Ordered By: Yasmin Crouch on 07-03-2024 Hematocrit (Bld) [Volume fraction] 33.4 % Low 37-47 [facility] Hemoglobin measurementOrdere d By: Yasmin Crouch on 07-03-2024 Hemoglobin (Bld) [Mass/Vol] 11.0 g/dL Low 12.0-15.0 [facility] MCV (mean corpuscular volume ) determinationOrdered By: Yasmin Crouch on 07-03-2024 MCV (RBC) [Entitic vol] 88.8 fL 81-99 [facility] MR/POSTOP.ANEon 07-03-2024 MR/POSTOP.ANE [facility] Medical Records Department [address] [facility] [place] [address] Anesthesia Postop Eval I 07/03/24 0931 MR#: [id number] Acct: [id number] Name: NICOLASA CASTILLO Rep #: [id number] : 1975 49 From: Tamela Desai CRNA PCP: Dr. Florian Johns MD Status:REG SDC Y Race: C Location: [place] [address] Anesthesia: Postop Eval I Current Vital Signs [...] 1 completed: Yes 07/03/2433 Date Tamela Desai LOWER IN SUPERVISOR Cosigner Signature: Date CC: Signed Normal [facility] MR/JJVRRVCE1tt 07-03-2024 MR/POSTOPAN2 [facility] Medical Records Department [address] [place] [address] Anesthesia Postop Eval II 07/03/24 1050 MR#: [id number] Acct: [id number] Name: NICOLASA CASTILLO Rep #: [id number] : 1975 49 From: Rose Geiger PCP: Dr. Florian Johns MD Status:REG SDC Y Race: C Location: [place] [address] Anesthesia Postop Eval I Sum Postop Eval Completion status Anesthesia document: Postop Eval 1 completed: Yes Anesthesia Postop Eval I Summary Anesthesia Postop Eval I Summary: Anesthesia Postop Eval I: Assessment Summary Airway patent Yes 07/03/24 09:33 LOWER IN SUPERVISOR.LMIL Spontaneous unlabored Yes 07/03/24 09:33 LOWER IN SUPERVISOR.LMIL respirations Mental status Awake 07/03/24 09:33 LOWER IN SUPERVISOR.LMIL nausea No 07/03/24 09:33 LOWER IN SUPERVISOR.LMIL Vomiting No 07/03/24 09:33 LOWER IN SUPERVISOR.LMIL Anesthesia Postop Eval I: Fluid Summary Crystalloid volume administer 1,000 07/03/24 09:33 LOWER IN SUPERVISOR.LMIL (ml) Colloids volume administered ( ml) Blood Product volume administered (ml) Total IV fluid infused 1,000 07/03/24 09:33 LOWER IN SUPERVISOR.LMIL Anesthesia Postop Eval I: Summary Notes Anesthesia Complication No 07/03/24 09:33 LOWER IN SUPERVISOR.LMIL Anesthesia Complication Comment: Post-operative progress note Anesthesia: Postop Eval II Evaluation Mental status: Awake Pain Level: 2 nausea: No Vomiting: No 07/03/24 1050 Date Rose De Santiago Signature: Date CC: Signed Normal [facility] Mean corpuscular hemoglobin (MCH) determinationOrdered By: Yasmin Jackson on 07-03-2024 MCH (RBC) [Entitic mass] 29.3 pg 27.0-32.0 [facility] Mean corpuscular hemoglobin concentration (MCHC) determinationOrdered By: Yasmin Crouch on 07-03-2024 MCHC (RBC) [Mass/Vol] 32.9 g/dL 32-36 [facility] Mean platelet volume determi nationOrdered By: Yasmin Crouch on 07-03-2024 Platelet mean volume (Bld) [Entitic vol] 10.1 fL 6.2-12.0 [facility] Operative Reporton 5 Operative Report [facility] Medical Records Department [address] [place] [address] Operative Report 07/03/24 0913 MR#: [id number] Acct: [id number] Name: NICOLASA CASTILLO Rep #: [id number] : 1975 49 From: Yasmin Crouch MD PCP: Dr. Florian Johns MD Status:REG [facility] Location: [place] [address] Operative Report (Standard) Operative Information Date of Procedure: 07/03/24 Pre-Operative Diagnosis: desires sterilization, dysmenorrhea, heavy menses Post-Operative Diagnosis: same, Omental adhesions Surgery/Procedure Performed: IUD removal, IUD- liletta insertion, laparoscopic bilateral salpingectomy, Lysis of adhesions gang head saw operator: No Type of Anesthesia: General and Local [...] anesthesia. She was then placed in [facility] and she was prepped and draped [...] MD; Dr. Florian Johns MD Signed Normal [facility] Platelet countOrdered By: Monte on 07-03-2024 Platelets (Bld) [#/Vol] 246 10*3/uL 150-450 [facility] Potassium (Unsp spec) [Mass/ Vol]Ordered By: Yasmin Crouch on 07-03-2024 Potassium [Moles/Vol] 3.9 mmol/L 3.3-5.1 [facility] Potassium measurement (mass/ volume)Ordered By: Yasmin Crouch on 07-03-2024 Potassium (Unsp spec) [Mass/Vol] 3.9 mmol/L 3.3-5.1 [facility] ,Urineon 07-03-2024 Beta HCG ( test) Ql (U) Negative Normal [facility] Comment on above: Result Comment: Very dilute urine specimens, as indicated by a low specific gravity, may not contain senior outside sales representative levels of hCG. If is still suspected, a first morning urine specimen should be collected 48 hours later and tested. Performed By: #### L 501.9520, L500.2500, L400.7600 #### [facility] [address] [place], [address] RBC Auto (Bld) [#/Vol]Ordere d By: Yasmin Crouch on 07-03-2024 RBC (Bld) [#/Vol] 3.76 10*6/uL Low 4.2-5.4 [facility] Serum creatinine measurement (mass/volume)Ordered By: Yasmin Crouch on 07-03-2024 Creatinine [Mass/Vol] 0.66 mg/dL Low 0.70-1.20 [facility] Serum glucose measurement (m ass/volume)Ordered By: Yasmin Crouch on 07-03-2024 Glucose [Mass/Vol] 94 mg/dL 70-99 [facility] Serum or plasma calcium aby urement (mass/volume)Ordered By: Yasmin Jackson on 07-03-2024 Calcium [Mass/Vol] 9.2 mg/dL 7.6-11.0 [facility] Serum or plasma urea nitroge n measurement (mass/volume)Ordered By: Yasmin Crouch on 07-03-2024 Urea nitrogen [Mass/Vol] 21 mg/dL High 4-19 [facility] Sodium levelOrdered By: Saurav Crouch on 07-03-2024 Sodium [Moles/Vol] 142 mmol/L 133-145 [facility] Surgery Specimen Level IIon 07-03-2024 Surgery Specimen Level II ---- Patient Age/Sex Location Account Attending Physician ---- NICOLASA CASTILLO 49/F [facility] [id number] Dr Yasmin Crouch, ---- Specimen: [id number] Received: 07/03/24 Status: STEVENSON Reed Num: [id number] Spec Type: FALL TUBES Subm Dr: Dr [...] with a smooth and glistening inner lining. Principal Embedded Software Engineer sections are submitted as follows:A1. First fallopian tube and fimbriated end with cystic structureA2. Second fallopian tube with fimbriated end [facility] 07-03-2024 CPT:82742 ---- Patient Age/Sex Location Account Attending Physician ---- NICOLSAA CASTILLO 49/F [facility] [id number] Dr Yasminabelardo Crouch, ---- Signed (signature on file) Dr. Juany King MD 07/08/24 1707 ---- Normal [facility] Comment on above: Performed By: #### P SUII #### [facility] [address] [facility] [place], [address] TSH DL <= 0.005 mIU/L QnOrde red By: Jan Daniel on 07-03-2024 Thyroid Stimulating Hormone (TSH) 2.140 uIU/mL 0.300-4.200 [facility] TSH Qn 2.140 uIU/mL 0.300-4.200 [facility] Thyroid Stim Hormone (TSH)on 07-03-2024 TSH 2.140 uIU/mL Normal 0.300-4.200 [facility] Comment on above: Performed By: #### L 501.9520, L500.2500, L400.5840 #### [facility] [address] [facility] [place], [address] Urine testOrdered By: Jan Daniel on 07-03-2024 HCG ( test) Ql (U) Negative [facility] Comment on above: Very dilute urine sp ecimens, as indicated by a low specificgravity, may not contain senior outside sales representative levels of hCG. If is still suspected, a first morning urinespecimen should be collected 48 hours later and tested. 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 Florian Johns MD Status:[facility] Location: [place] [address] History and Physical Date of Admission: 07/03/24 [...] Negative ??? PAST SURGICAL HISTORY OF 05/2017 [facility] ??? REDUCTION OF LARGE BREAST Bilateral [...] on 06/09/2024 Note shared with patient 07/02/24 5383 Cosigner Signature (if applicable): CC: Dr Yasmin [...] Dr. Florian Johns MD * Signed Normal [facility] MR/PAT.GRISELon 06-10-2024 MR/PAT.ANE [facility] Medical Records Department [address] [place] [address] PAT - Anesthesia 06/10/24 1114 MR#: [id number] Acct: [id number] Name: NICOLASA CASTILLO Rep #: [id number] : 1975 49 From: Jan Daniel MD PCP: Dr. Florian Johns MD Status:PRE [facility] Y Race: C Location: [facility] Pre-Assessment Diagnosis/Proposed Procedure Planned Operative Procedure(s): LAP SALPINGECTOMY BILAT,REMOVAL MIRENA IUD INSERTION OF LILETTA IUD Anesthesia History Anesthesia History - python architect: Anesthesia History - python architect Hx Hospitalization No 06/10/24 08:11 Any Problems [...] take am of surgery PONV PONV - python architect: PONV - python architect Female Yes 06/10/24 08:11 HX of Motion [...] 04/18/23 13:55 Respiratory Assessment Respiratory Assessment - python architect: Respiratory Tract Infection Hx - python architect Hx Respiratory Tract Infection No 06/10/24 08:11 STOP Sleep Apnea STOP Sleep Apnea - python architect: STOP Sleep Apnea - python architect Hx Hypertension Yes: NO MEDS SINCE 201706/10/24 [...] Tobacco Use History Tobacco Use History - python architect: Tobacco Use History - python architect Tobacco Use Smoking Status Never smoker 06/10/24 08:11 Hx Tobacco Use No 06/10/24 08:11 Years Smoking Packs Smoked per Day Smoking Cessation Date was within the last 15 years Hx Smoking Cessation Date Hx Smoking Cessation Counseling Hematologic Medial History Hematologic Hx - python architect: 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 [facility] Office Visit (OBGYWM ) NICOLASA CSATILLO ([id number]) 1975 F Date Time Provider Department 06/09/24 [...] 02/13/2013 Negative PAST SURGICAL HISTORY OF 05/2017 [facility] REDUCTION OF LARGE BREAST Bilateral 2020 [...] Status:Closed by YASMIN JACKSON on 06/09/24 Normal [facility] HISTORY PHYSICALon HISTORY PHYSICAL HNO ID: [id number] Author: YASMIN KEE MD Service: ? 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 PAST MEDICAL HISTORY Diagnosis Date Diabetes (HCC) Dysmetabolic syndrome Gout Hypercholesteremia Hypertension Hypothyroidism PAST SURGICAL HISTORY Procedure Laterality Date ASPIRATIONAND/INJECTIO N GANGLION CYST ANY LOCATJ Right 04/2023 removal cyst MIRENA 03/23/2013 OFFICE LEEP 02/13/2013 Negative PAST SURGICAL HISTORY OF 05/2017 gastric bi pass- [facility] REDUCTION OF LARGE BREAST Bilateral 2020 [...] which included preparing to see the patient, [id number] patient care, completing clinical documentation, obtaining and/or reviewing separately obtained history, performing a medically appropriate examination, and counseling and educating the patient/family/[facility]. Yasmin Crouch MD Allergies As [...] Status:Closed by YASMIN JACKSON on 04/21/24 Normal [facility] Laboratory - Chemistry and C hemistry - challengeOrdered By: Jan Daniel on 04-18-2023 HCG ( test) Ql (U) Negative [facility] Comment on above: Very dilute urine sp ecimens, as indicated by a low specificgravity, may not contain senior outside sales representative levels of hCG. If is still suspected, a first morning urinespecimen should be collected 48 hours later and tested. Basophil percentageOrdered B y: Florian Johns on 02-22-2023 Chloride [Moles/Vol] 106 mmol/L 98-107 [facility] Cholesterol [Mass/Vol] 210 mg/dL <200 [facility] Comment on above: <200 mg/dL Desirable 200-240 mg/dL Borderline >240 mg/dL High Risk Glucose [Mass/Vol] 92 mg/dL 74-106 [facility] Potassium [Moles/Vol] 3.6 mmol/L 3.5-5.1 [facility] Sodium [Moles/Vol] 139 mmol/L 136-145 [facility] Triglyceride [Mass/Vol] 75 mg/dL <199 [facility] Comment on above: The drugs N-Acetylcy steine and Metamizole may falsely depress this assay.Serum Triglycerides Reference Interval Normal <150 mg/dL Borderline high 150 - 199 mg/dL High 200 - 499 mg/dL Very High > or = 500 mg/dL Laboratory - Chemistry and C hemistry - challengeOrdered By: Florian Johns on 02-22-2023 CO2 [Moles/Vol] 29.0 mmol/L 21.0-32.0 [facility] Free T4 [Mass/Vol] 0.92 ng/dL 0.76-1.46 [facility] Urea nitrogen/Creatinine [Mass ratio] 19.5 mg/mg 10-20 [facility] No Panel InformationOrdered By: Florian Johns on 02-22-2023 Estimated GFR (MDRD) Amer 103 mL/min >60 [facility] Comment on above: GFR Calc Estimated GFR (MDRD) Non-Af Amer 85 mL/min >60 [facility] Comment on above: Non- GFR Calc Free Triiodothyronine (T3) pg/dL 2.3 pg/mL 2.18-3.98 [facility] Thyroid Stimulating Hormone (TSH) 1.32 uIU/mL 0.358-3.74 [facility] Serum or plasma calcium aby urement (mass/volume)Ordered By: Florian Johns on 02-22-2023 Calcium [Mass/Vol] 8.8 mg/dL 8.5-10.1 [facility] Serum or plasma cholesterol in HDL measurement (mass/volume)Ordered By: Florian Johns on 02-22-2023 Cholesterol in HDL [Mass/Vol] 94 mg/dL >40 [facility] Comment on above: The drugs N-Acetylcy steine and Metamizole may falsely depress this assay. Reference Range HDL <40 mg/dL Low HDL Cholesterol HDL >or= 60 mg/dL High HDL Cholesterol Serum or plasma cholesterol in VLDL measurement (mass/volume)Ordered By: Florian Johns on 02-22-2023 Cholesterol in VLDL [Mass/Vol] 15 mg/dL 5-40 [facility] Serum or plasma creatinine m easurement (mass/volume)Ordered By: Florian Johns on 02-22-2023 Creatinine [Mass/Vol] 0.77 mg/dL 0.55-1.02 [facility] Comment on above: The validity of the calculated GFR & GFRAA in patients over 70 years has not been determined. Clinical correlation is essential. Serum or plasma low density lipoprotein (LDL) cholesterol measurement (mass/volume)Ordered By: Florian Johns on 02-22-2023 Cholesterol in LDL [Mass/Vol] 101 mg/dL 0-130 [facility] Serum or plasma urea nitroge n measurement (mass/volume)Ordered By: Florian Johns on 02-22-2023 Urea nitrogen [Mass/Vol] 15 mg/dL 7-18 [facility] Thin prep Papanicolaou smear with manual screeningOrdered By: Florian Johns on 02-22-2023 Thin prep Papanicolaou smear with manual screening 4 5-15 [facility] Absolute lymphocyte countOrd ered By: Dr. Johns on 08-06-2022 Lymphocytes Auto (Unsp spec) [#/Vol] 1.04 10*3/uL 0.83-4.51 [facility] Basophil percentageOrdered B y: Dr. Johns on 08-06-2022 Basophils/100 WBC (Bld) 1.2 % 0-1 [facility] Chloride [Moles/Vol] 106 mmol/L 98-107 [facility] Eosinophils/100 WBC (Bld) 1.8 % 0-5 [facility] Glucose [Mass/Vol] 89 mg/dL 74-106 [facility] Neutrophils (Bld) [#/Vol] 1.8 10*3/uL 2.0-7.7 [facility] Neutrophils/100 WBC (Bld) 53.1 % 47-70 [facility] Potassium [Moles/Vol] 3.8 mmol/L 3.5-5.1 [facility] Sodium [Moles/Vol] 141 mmol/L 136-145 [facility] WBC (Bld) [#/Vol] 3.3 10*3/uL 4.4-11.0 [facility] Blood erythrocytes count (nu mber/volume)Ordered By: Dr. Johns on 08-06-2022 RBC (Bld) [#/Vol] 4.03 10*6/uL 4.2-5.4 [facility] Blood hemoglobin measurement (mass/volume)Ordered By: Dr. Johns on 08-06-2022 Hemoglobin (Bld) [Mass/Vol] 12.5 g/dL 12.0-15.0 [facility] Blood lymphocytes/100 leukoc ytesOrdered By: Dr. Johns on 08-06-2022 Lymphocytes/100 WBC (Bld) 31.5 % 19-41 [facility] Blood monocytes/100 leukocyt esOrdered By: Dr. Johns on 08-06-2022 Monocytes/100 WBC (Bld) 12.4 % 0-10 [facility] Blood platelet mean volumeOr dered By: Dr. Johns on 08-06-2022 Platelet mean volume (Bld) [Entitic vol] 10.7 fL 6.2-12.0 [facility] Determination of erythrocyte mean corpuscular volume (MCV)Ordered By: Dr. Johns on 08-06-2022 MCV (RBC) [Entitic vol] 96.8 fL 81-99 [facility] Hematocrit Auto (Bld) [Volum e fraction]Ordered By: Dr. Johns on 08-06-2022 Hematocrit (Bld) [Volume fraction] 39.0 % 37-47 [facility] Laboratory - Chemistry and C hemistry - challengeOrdered By: Dr. Johns on 08-06-2022 CO2 [Moles/Vol] 29.0 mmol/L 21.0-32.0 [facility] Free T4 [Mass/Vol] 0.99 ng/dL 0.76-1.46 [facility] Urea nitrogen/Creatinine [Mass ratio] 23.1 mg/mg 10-20 [facility] Laboratory - Hematology and Cell countsOrdered By: Dr. Johns on 08-06-2022 Erythrocyte distribution width (RBC) [Entitic vol] 43.7 fL 35.1-43.9 [facility] Erythrocyte distribution width (RBC) [Ratio] 12.2 % 11.6-14.6 [facility] Immature granulocytes/100 WBC (Bld) 0.000 % 0.0-0.9 [facility] Comment on above: IG% - Immature Granu locytes (promyelocytes, myelocytes and metamyelocytes) > 1% indicates that a LEFT SHIFT is Present. MCH (RBC) [Entitic mass] 31.0 pg 27.0-32.0 [facility] Nucleated RBC/100 WBC (Bld) [Ratio] 0 % 0-5 [facility]) [Mass/Vol]Or dered By: Dr. Johns on 08-06-2022 MCHC (RBC) [Mass/Vol] 32.1 g/dL 32-36 [facility] No Panel InformationOrdered By: Dr. Johns on 08-06-2022 Estimated GFR (MDRD) Amer 137 mL/min >60 [facility] Comment on above: GFR Calc Estimated GFR (MDRD) Non-Af Amer 113 mL/min >60 [facility] Comment on above: Non- GFR Calc Free Triiodothyronine (T3) pg/dL 2.2 pg/mL 2.18-3.98 [facility] Thyroid Stimulating Hormone (TSH) 1.83 uIU/mL 0.358-3.74 [facility] Platelets bldOrdered By: Dr. Johns on 08-06-2022 Platelets (Bld) [#/Vol] 265 10*3/uL 150-450 [facility] Serum or plasma calcium aby urement (mass/volume)Ordered By: Dr. Johns on 08-06-2022 Calcium [Mass/Vol] 9.0 mg/dL 8.5-10.1 [facility] Serum or plasma creatinine m easurement (mass/volume)Ordered By: Dr. Johns on 08-06-2022 Creatinine [Mass/Vol] 0.60 mg/dL 0.55-1.02 [facility] Comment on above: The validity of the calculated GFR & GFRAA in patients over 70 years has not been determined. Clinical correlation is essential. Serum or plasma urea nitroge n measurement (mass/volume)Ordered By: Dr. Johns on 08-06-2022 Urea nitrogen [Mass/Vol] 14 mg/dL 7-18 [facility] Thin prep Papanicolaou smear with manual screeningOrdered By: Dr. Johns on 08-06-2022 Thin prep Papanicolaou smear with manual screening 6 5-15 [facility] No Panel InformationOrdered By: Dr. Johns on 02-07-2022 Thyroid Stimulating Hormone (TSH) 1.20 uIU/mL 0.358-3.74 [facility] Laboratory - Chemistry and C hemistry - challengeon 08-29-2021 Free T4 [Mass/Vol] 1.12 ng/dL 0.76-1.46 [facility] Work Phone: [phone] No Panel Informationon 08-29 Free Triiodothyronine (T3) pg/dL 2.6 pg/mL 2.18-3.98 [facility] Work Phone: [phone] Thyroid Stimulating Hormone (TSH) 0.56 uIU/mL 0.358-3.74 [facility] Work Phone: [phone] Laboratory - Microbiology an d Antimicrobial susceptibilityon 08-04-2021 SARS-CoV-2 (COVID-19) RNA NICKO+probe Ql (Unsp spec) Detected Not Detect [facility] Work Phone: Comment on above: Normal Reference Ran ge: Not DetectedMethod:(RT-PCR) real-time reverse transcriptase PCRLuminex LISA Instrument*The Food and Drug Administration (FDA) has issued an Emergency Use Authorization (EAU) for the Footnote SARS-CoV-2 Assay for the rapid detection of [...] Panel Informationon 08-04 Respiratory Panel (PCR) [facility] Work Phone: [phone] Basophil percentageon 2021 Testosterone [Mass/Vol] 4 ng/dL [facility] Work Phone: [phone] Free testosterone percentage on 05-23-2021 Testosterone Free/Testosterone.total [Mass fraction] 1.71 % [facility] Work Phone: [phone] Comment on above: Performed at: [address] [id number] Director: Shyam Kaminski PhD, Phone: [phone] at: [address] [id number] Director: Patricia Washington MD, Phone: [phone] Serum or plasma testosterone free measurement (mass/volume)on 05-23-2021 Testosterone Free [Mass/Vol] 0.07 ng/dL [facility] Work Phone: Laboratory - Microbiology an d Antimicrobial susceptibilityon 05-17-2021 SARS-CoV-2 (COVID-19) RNA NICKO+probe Ql (Unsp spec) Not detected Not Detect [facility] Work Phone: Comment on above: Normal Reference Ran ge: Not DetectedMethod:(RT-PCR) real-time reverse transcriptase PCRLuminex Footnote Instrument*The Food and Drug Administration (FDA) has [...] Glucose mass conc 109 mg/dL High 65-99 [facility] Comment on above: Performed By: #### P LT ####[address] [address] Glucose mass conc 98 mg/dL Normal 65-99 [facility] Comment on above: Performed By: #### P LT ####[address] [address] Glucose mass conc 99 mg/dL Normal 65-99 [facility] Comment on above: Performed By: #### P CGL ####[address] [address] POCT GLUCOSEon 06-12-2017 Glucose mass conc 95 mg/dL Normal 65-99 [facility] Comment on above: Performed By: #### P CGL ####[facility] [address] [place] [address] Glucose mass conc 81 mg/dL Normal 65-99 [facility] Comment on above: Performed By: #### P CGL ####[facility] [address] [place] [address] Glucose mass conc 111 mg/dL High 65-99 [facility] Comment on above: Performed By: #### P CGL ####[facility] [id number] [place] [address] Glucose mass conc 93 mg/dL Normal 65-99 [facility] Comment on above: Performed By: #### P CGL ####[facility] [id number] [place] [address] Glucose mass conc 81 mg/dL Normal 65-99 [facility] Comment on above: Performed By: #### P CGL ####[facility] [id number] [place] [address] UGI W KUBon 06-12-2017 UGI W KUB *FINAL Da te of Service: 06/12/2017 08:32 Adm #: [id number] Dr:KITTY DEE Signoff Dr: KITTY DEEPROCEDURE: UGI [...] by/Date: NO ADDENDUMAddendum Electronically Signed by/Date: Normal [facility] Consulton 06-11-2017 Consult Normal [facility] Discharge Summaryon 06-12-19 18 Discharge Summary Normal [facility] Operative Reporton 8 Operative Report Normal [facility] PLATELETon 06-11-2017 Platelets Normal 150-450 [facility] Comment on above: Result Comment: 280P erformed at [facility] [place], [facility] [address] [place] [address] Performed By: #### P LT ####[facility] [place] [address] POCT GLUCOSEon 06-11-2017 Glucose mass conc 144 mg/dL High 65-99 [facility] Comment on above: Performed By: #### P CGL ####[facility] [place] [place] [address] Glucose mass conc 145 mg/dL High 65-99 [facility] Comment on above: Performed By: #### P CGL ####[facility] [place] [place] [address] Glucose mass conc 112 mg/dL High 65-99 [facility] Comment on above: Performed By: #### P CGL ####[facility] [place] [place] [address] Vital Signs Date Time Vital Sign Value Performing Clinician Faci lity 01-18-2025 08:20-0400 Body temperature 97 [degF] Dr. Florian Johns MD Work Phone: [facility] 01-18-2025 08:20-0400 Diastolic blood pressure 79 mm[Hg] Dr. Florian Johns MD Work Phone: [facility] 01-18-2025 08:20-0400 Heart rate 57 /min Dr. Florian Johns MD Work Phone: [facility] 01-18-2025 08:20-0400 Respiratory rate 16 /min Dr. Florian Johns MD Work Phone: [facility] 01-18-2025 08:20-0400 SaO2% (BldA) [Mass fraction] 99 % Dr. Florian Johns MD Work Phone: [phone] [place] [address] 01-18-2025 08:20-0400 Systolic blood pressure 107 mm[Hg] Dr. Florian Johns MD Work Phone: [phone] [place] [address] 01-18-2025 06:43-0400 Body height 170.[address] Florian Johns MD Work Phone: [phone] [place] [address] 01-18-2025 06:43-0400 Body mass index (BMI) [Ratio] 30.5 kg/m2 Dr. Florian Johns MD Work Phone: [phone] [place] [address] 01-18-2025 06:43-0400 Body weight 88.[address] Florian Johns MD Work Phone: [phone])[phone] [place] [address] 07-03-2024 11:15-0400 Body temperature 98.3 [degF] Dr. Florian Johns MD Work Phone: [phone])[phone] [place] [address] 07-03-2024 11:15-0400 Diastolic blood pressure 74 mm[Hg] Dr. Florian Johns MD Work Phone: [phone])932-999902 [place] [address] 07-03-2024 11:15-0400 Heart rate 68 /min Dr. Florian Johns MD Work Phone: [phone] [place] [address] 07-03-2024 11:15-0400 Respiratory rate 16 /min Dr. Florian Johns MD Work Phone: [phone])[phone] [place] [address] 07-03-2024 11:15-0400 SaO2% (BldA) [Mass fraction] 100 % Dr. Florian Johns MD Work Phone: [phone] [place] [address] 07-03-2024 11:15-0400 Systolic blood pressure 120 mm[Hg] Dr. Florian Johns MD Work Phone: [phone] [place] [address] 07-03-2024 07:11-0400 Body height 170.[address] Florian Johns MD Work Phone: [phone] [place] [address] 07-03-2024 07:11-0400 Body mass index (BMI) [Ratio] 30.8 kg/m2 Dr. Florian Johns MD Work Phone: [facility] 07-03-2024 07:11-0400 Body weight 89.[address] Florian Johns MD Work Phone: [facility] 06-09-2024 16:11-0400 Body height 170.2 cm Yasmin Jackson MD Work Phone: [facility] 06-09-2024 16:11-0400 Body mass index (BMI) [Ratio] 31.01 kg/m2 Yasmin Jackson MD Work Phone: [facility] 06-09-2024 16:110400 Body weight 89.81 kg Yasmin Jackson MD Work Phone: [facility] 06-09-2024 16:11-0400 Diastolic blood pressure 72 mm[Hg] Yasmin Jackson MD Work Phone: [facility] 06-09-2024 16:11-0400 Systolic blood pressure 134 mm[Hg] Yasmin Jackson MD Work Phone: [facility] 04-21-2024 15:19-0500 Body mass index (BMI) [Ratio] 30.09 kg/m2 Yasmin Jackson MD Work Phone: [facility] 04-21-2024 15:19-0500 Body weight 88 kg Yasmin Jackson MD Work Phone: [facility] 04-21-2024 15:19-0500 Diastolic blood pressure 80 mm[Hg] Yasmin Jackson MD Work Phone: [facility] 04-21-2024 15:19-0500 Systolic blood pressure 124 mm[Hg] Yasmin Jackson MD Work Phone: [facility] 04-18-2023 17:10-0500 Body temperature 97.7 [degF] [facility] 04-18-2023 17:10-0500 Diastolic blood pressure 73 mm[Hg] [facility] 04-18-2023 17:10-0500 Heart rate 59 /min [facility] 04-18-2023 17:10-0500 Respiratory rate 16 /min [facility] 04-18-2023 17:10-0500 SaO2% (BldA) [Mass fraction] 100 % [facility] 04-18-2023 17:10-0500 Systolic blood pressure 125 mm[Hg] [facility] 04-18-2023 13:55-0500 Body height 172.72 cm [facility] 04-18-2023 13:55-0500 Body mass index (BMI) [Ratio] 27.3 kg/m2 [facility] 04-18-2023 13:55-0500 Body weight 81.4 kg [facility] 06-18-2022 15:47-0400 Body height 172.7 cm Yasmin Jackson MD Work Phone: [facility] 06-18-2022 15:47-0400 Body weight 82.37 kg Yasmin Jackson MD Work Phone: [facility] 06-18-2022 15:47-0400 Diastolic blood pressure 74 mm[Hg] Yasmin Jackson MD Work Phone: [facility] 06-18-2022 15:47-0400 Systolic blood pressure 120 mm[Hg] Yasmin Jackson MD Work Phone: [facility] Encounters Encounter Date Encounter Type Care Provider Facility Start: 01-18-2025 End: 01-18-2025 Admission to same day surgery center Dr. Matthew Moyer MD -Surgical Day Care Start: 01-18-2025 End: 01-18-2025 ambulatory Matthew Moyer Facility:[facility] Start: 01-04-2025 End: 01-04-2025 ambulatory YASMIN JACKSON Facility:[facility] Start: 01-04-2025 Encounter for gynecological examination (general) (routine) without abnormal findings YASMIN JACKSON [facility] Start: 09-22-2024 End: 09-22-[address] Florian Johns MD Work Phone: -Outpatient Breast Imaging Start: 09-22-2024 End: 09-22-[address] Yasmin Crouch MD -Outpatient Breast Imaging Work Phone: Start: 09-22-2024 End: 09-22-2024 ambulatory Yasmin Crouch Facility:[facility] Start: 07-27-2024 End: 07-27-[address] Matthew Moyer MD -Radiology [facility] Work Phone: Start: 07-27-2024 End: 07-27-2024 ambulatory Matthew Moyer Facility:[facility] Start: 07-09-2024 End: 07-09-2024 Telephone encounter Yasmin Jackson MD Work Phone: OB/Gynecology Start: 07-03-2024 End: 07-03-2024 Admission to same day surgery center Dr Yasmin Crouch MD -Surgical Day Care Start: 07-03-2024 End: 07-03-[address] Florian Johns MD Work Phone: [facility] Work Phone: Start: 06-09-2024 End: 06-09-2024 ambulatory LUIS E WATSON Facility:[facility] Start: 06-09-2024 End: 06-09-2024 Patient encounter procedure Yasmin Jackson MD Work Phone: OB/Gynecology Comment on above: Sterilization consul t (Primary Dx); Abnormal uterine bleeding (AUB); Dysmenorrhea; Pre-op exam Start: 06-09-2024 End: 06-09-2024 Preprocedural examination done Yasmin Jackson MD Work Phone: [facility] Start: 06-03-2024 End: 06-03-2024 Admission to same day surgery center Yasmin Jackson MD Work Phone: OB/Gynecology Comment on above: surgery confirmation Start: 06-03-2024 End: 06-03-2024 E-mail encounter from caregiver Yasmin Jackson MD Work Phone: OB/Gynecology Start: 04-21-2024 End: 04-21-2024 ambulatory ULIS E JOVANNY WATSON Facility:[facility] Start: 04-21-2024 End: 04-21-2024 Patient encounter procedure [...] 04-18-2023 Admission to same day surgery center [facility]-Surgical Day Care Start: 04-18-2023 End: 04-18-2023 ambulatory [facility] Work Phone: Start: 02-22-2023 End: 02-22-2023 ambulatory [facility] Work Phone: Start: 02-22-2023 End: 02-22-2023 Patient encounter procedure [facility]-Laboratory Work Phone: Start: 08-06-2022 End: 08-06-[address] Florian Johns Work Phone: [facility] Work Phone: Start: 08-06-2022 End: 08-06-[address] [facility] Start: 06-27-2022 End: 06-27-[address] Florian Johns Work Phone: [facility] Work Phone: Start: 06-27-2022 End: 06-27-[address] Florian Johns Work Phone: [facility]-Outpatient Breast Imaging Start: 06-18-2022 End: 06-18-2022 Patient encounter procedure Yasmin Jackson MD Work Phone: OB/Gynecology Comment on above: Encounter for gyneco logical examination (general) (routine) without abnormal findings (Primary Dx); Encounter for screening mammogram for breast cancer Start: 06-18-2022 End: 06-18-2022 Patient encounter status Yasmin Jackson MD Work Phone: OB/Gynecology Start: 04-16-2022 Non-patient / Non-visit Dr. Orlin Johns Work Phone: [facility] Start: 04-16-2022 End: 04-16-[address] Florian Johns Work Phone: [facility] Work Phone: Start: 04-16-2022 End: 04-16-[address] Florian Johns Work Phone: [facility]-Pulmonary Services/Neurology Start: 02-07-2022 End: 02-07-2022 ambulatory [facility] Work Phone: Start: 02-07-2022 End: 02-07-2022 Patient encounter procedure [facility] Start: 08-29-2021 End: 08-29-2021 Patient encounter procedure [facility] Start: 08-04-2021 End: 08-04-2021 Patient encounter procedure [facility]-Laboratory, Specimen Start: 05-23-2021 End: 05-23-2021 Patient encounter procedure [facility] Start: 05-17-2021 End: 05-17-2021 Patient encounter procedure [facility]-Laboratory, Specimen Start: 06-11-2017 End: 06-13-2017 Evaluation and management of inpatient SUNDAR GUARDADO Facility:UNKNOWN Start: 03-18-2017 Patient encounter status [facility] Start: 03-18-[address] Florian giraldo MD Work Phone: [facility] Start: 10-17-2016 Ambulatory SUNDAR GUARDADO Facility: UNKNOWN [...] 05-23-2026 HPV TESTING HPV TESTING [facility] Start: 05-23-2026 PAP TESTING PAP TESTING [facility] Start: 05-23-2026 Screening for malign ant neoplasm of cervix Cervical Cancer Screening [facility] Start: 03-29-2025 ambulatory Ambulatory Facility:[facility] Start: 01-18-2025 Anes dx/ther nerve block/injection prone pos ANESTH N BLOCK/INJ PRONE [facility] Start: 01-18-2025 Njx dx/ther sbst int rlmnr crv/thrc w/img gdn NJX INTERLAMINAR CRV/THRC [facility] Start: 01-18-2025 Patient discharge [facility] Start: 10-07-2024 End: 10-07-2024 Patient encounter procedure 10/07/2024 3:20 PM EDT Office Visit OB/Gynecology [address] [place] [address] Yasmin Kee MD [address] [address] Annual, x2 rescheduled OB/Gynecology Comment on above: Annual, x2 reschedul ed Start: 09-18-2024 End: 09-18-2024 Patient encounter procedure 09/18/2024 4:00 PM EDT Office Visit OB/Gynecology [address] [place], [place] [id number] Yasmin Kee MD [address] [place] [address] Annual OB/Gynecology Comment on above: Annual Start: 09-16-2024 BP Controlled (<130/80) BP Controlle d (<130/80) [facility] Start: 07-20-2024 End: 07-20-2024 Patient encounter procedure 07/20/2024 4:20 PM EDT Office Visit OB/Gynecology [address] [place] [address] Yasmin Kee MD [address] [place] [address] post op / OB/Gynecology Comment on above: post op 4 Start: 07-03-2024 Anesthesia intraperitoneal lower abd w/laps nos ANESTH SURG LOWER ABDOMEN [facility] Start: 07-03-2024 Insertion intrauteri ne device iud INSERT INTRAUTERINE DEVICE [facility] Start: 07-03-2024 Laparoscopy w/rmvl adnexal structures LAPAROSCOPY REMOVE ADNEXA [facility] Start: 07-03-2024 Removal intrauterine device iud REMOVE INTRAUTERINE DEVICE [facility] Start: 07-03-2024 Patient discharge [facility] Start: 07-03-2024 Procedure discontinued [facility] Start: 07-03-2024 Ambulation without limitation [facility] Start: 07-03-2024 Medical regimen orde rs management [facility] Start: 07-03-2024 Medication education [facility] Start: 07-03-2024 Taking patient vital signs [facility] Start: 07-03-2024 Vital signs measurements [facility] Start: 07-03-2024 [facility] Start: 06-09-2024 End: 06-09-2024 Patient encounter procedure 06/09/2024 4:20 PM EDT Office Visit OB/Gynecology [address] [place] [address] Yasmin Kee MD [address] [place] [address] surgery 07/03 OB/Gynecology Comment on above: surgery 07/03 Start: 04-21-2024 End: 04-21-2024 Patient encounter procedure 04/21/2024 3:20 PM EST Office Visit OB/Gynecology [address] [place] [address] Yasmin Kee MD [address] [place] [address] Consult for bilateral salpingectomy OB/Gynecology Comment on above: Consult for bilatera l salpingectomy Start: 12-01-2023 Covid-19 Vaccine ( season) Covid-19 Vaccine ( season) [facility] Start: 12-01-2023 Influenza vaccination Influenza Vacc ine (#1) [facility] Start: 06-28-2023 Screening for malign ant neoplasm of breast Mammogram Screening [facility] Start: 06-19-2023 BP CONTROLLED (<130/80) BP CONTROLLE D (<130/80) [facility] Start: 04-18-2023 Patient discharge [facility] Start: 04-18-2023 Ambulation without limitation [facility] Start: 04-18-2023 Application of ice collar, cap or bag [facility] Start: 04-18-2023 Application of intermittent pneumatic compression device [facility] Start: 04-18-2023 Catheterization of vein [facility] Start: 04-18-2023 Elevation of affecte d extremity [facility] Start: 04-18-2023 Following clinical pathway protocol [facility] Start: 04-18-2023 Medical regimen orde rs management [facility] Start: 04-18-2023 Procedure discontinued [facility] Start: 04-18-2023 Taking patient vital signs [facility] Start: 04-18-2023 Vital signs measurements [facility] Start: 04-18-2023 Wound care [facility] Start: 04-18-2023 [facility] Start: 04-18-2023 Medication education [facility] Start: 04-01-2023 Behavioral Health Screening Behavioral Health Screening [facility] Start: 11-30-2022 Covid-19 Vaccine ( season) Covid-19 Vaccine () [facility] Start: 04-01-2022 DEPRESSION ASSESSMENT DEPRESSION ASS ESSMENT [facility] Start: 11-30-2021 Influenza vaccination INFLUENZA (#1) [facility] Start: 2021 COLOGUARD (FIT-DNA) COLOGUARD (FIT-D NA) [facility] Start: 2021 Colonoscopy COLONOSCOPY [facility] Start: 2021 COLORECTAL CANCER SCREENING COLORECTAL CANCER SCREENING [facility] Start: [address] [facility] Start: 2021 FECAL OCCULT BLOOD FECAL OCCULT BLOO D [facility] Start: 2021 Screening for malign ant neoplasm of colon [facility] Start: 2021 SIGMOIDOSCOPY SIGMOIDOSCOPY [facility] Start: 2016 Mammography MAMMOGRAM [facility] Start: 1995 Hepatitis B Vaccine (1 of 3 - 19+ 3-dose series) Hepatitis B Vaccine (1 of 3 - 19+ 3-dose series) [facility] Start: 1995 Pneumococcal vaccination Pneum ococcal Vaccine (1 of 2 - PCV) [facility] Start: 1995 Urine microalbumin profile [facility] Start: 1994 ANNUAL PCP TEAM DRIVER ALMA ROSA DISEASE VISIT ANNUAL PCP TEAM CHRONIC DISEASE VISIT [facility] Start: 1994 Anxiety Screening Anxiety Screening [facility] Start: 1994 BP Controlled (<130/80) BP Controlle d (<130/80) [facility] Start: 1994 Depression Screening Depression Scre ening [facility] Start: 1994 Hepatitis B surface antibody level LDL CHOLESTEROL [facility] Start: 1994 HEPATITIS C SCREENING HEPATITIS C [facility] Start: 1994 Hepatitis C screening Hepatitis C Sc [facility] Start: 1994 HIV SCREENING HIV SCREENING [facility] Start: 1994 HIV screening HIV Screening [facility] Start: 1986 3 comp foot exam completed DIABETIC FOOT EXAM [facility] Start: 1986 Diabetic foot examination Diabetic F oot Exam [facility] Start: 1986 Glaucoma screening Dilated Retinal E xam [facility] Start: 1986 Hepatitis B screening URINE ALBUMIN:CREATININE RATIO [facility] Start: 1986 Hepatitis C antibody , confirmatory test DILATED RETINAL EXAM [facility] Start: 1982 PNEUMOCOCCAL (1 - PCV) PNEUMOCOCCAL (1 - PCV) [facility] Start: 1982 Pneumococcal vaccination Pneum ococcal Vaccine (1 of 2 - PCV) [facility] Start: 1981 Hemoglobin A1c measurement HbA1C [facility] Start: 1981 Hemoglobin A1c/Hemoglobin.total in Blood HBA1C [facility] Start: 1976 COVID-19 VACCINE (#1) COVID-19 VACCI NE (#1) [facility] Start: 1976 HEPATITIS B (1 of 3 - 3-dose series) HEPATITIS B (1 of 3 - 3-dose series) [facility] End: 07-18-2023 RORY SCREENING RORY SCREENING Radiology Routine Encounter for screening mammogram for breast cancer 1 Occurrences starting 06/18/2022 until 07/18/2023 [facility] Work Phone: Comment on above: 1 Occurrences starti ng 06/18/2022 until 07/18/2023 Patient referral [facility] Work Phone: [facility] Immunizations Immunization Date Immunization Notes Care Provider Prosper carlin 02-02-2020 influenza virus vacc ine, unspecified formulation Yasmin Jackson MD Work Phone: [facility] Payers Date Payer Category Payer Self-pay [id number] 2022 Private Health Insurance [id number] 2022 Unknown [id number] 2013 Unknown [id number] Unknown [id number] Unknown [id number] Unknown [id number] Unknown [id number] Unknown [id number] Social History Date Type Detail Facility Start: 04-30-2020 End: 04-08-2023 Tobacco smoking status MNIS Unknown if ever smoked [facility] Start: 1975 Sex Assigned At Female [facility] Start: 12-24-2012 End: 01-07-2025 Tobacco smoking status NHIS Never smoked tobacco [facility] Start: 12-24-2012 Tobacco use and exposure Smokeless tobacco non-user [facility] Start: 06-18-2022 End: 07-03-2024 Alcohol intake Current drinker of alcohol (finding) [facility] Start: 12-24-2012 Alcohol Comment occasional [facility] Start: 09-17-2023 End: 06-09-2024 History of Social function [facility] Start: 09-17-2023 End: 06-09-2024 Tobacco use panel [facility] National Score (1-100), lower number is lower risk 80 [facility] Start: 04-04-2021 Gender identity Identifies as female gender (finding) [facility] Start: 04-04-2021 Sexual orientation Heterosexual (fin ding) [facility] Start: 07-03-2024 Sex Female (finding) [facility] NEGATED: Highlighted row Not [facility] Medical Equipment Procedure Code Equipment Code Equipment Origin al Text Equipment Identifier Dates Breast reduction [id number],500MG FDA Sta rt: 02-22-2020 Breast reduction RASHWAN 3GRM HEMOSTAT ABS [...] 08/06/2014 10:59 AM Brandy Rdz RN No [facility] 08-06-2014 Are you blind, or do you have serious difficulty seeing, even when wearing glasses No 08/06/2014 10:59 AM Brandy Rdz RN No [facility] 08-06-2014 Do you have serious difficulty walking or climbing stairs No 08/06/2014 10:59 AM Brandy Rdz RN No [facility] 08-06-2014 Do you have difficul ty dressing or bathing No 08/06/2014 10:59 AM Brandy Rdz, YOLIE No [facility] 08-06-2014 Because of a physica l, mental, or emotional condition, do you have difficulty doing errands alone such as visiting a physician's office or shopping No 08/06/2014 10:59 AM Brandy Rdz RN No [facility] Mental Status Date Assessment Result Facility 01-18-2025 Cognitive function Level Of Cons ciousness Follows [facility] Work Phone: 07-03-2024 Cognitive function Voice/Name [facility] Work Phone: 07-03-2024 Cognitive function Patient Omar damico Person;Place;Time [facility] Work Phone: 04-18-2023 Cognitive function Voice/Name [facility] Work Phone: 08-06-2014 Because of a physica l, mental, or emotional condition, do you have serious difficulty concentrating, remembering, or making decisions No 08/06/2014 10:59 AM EDT Brandy Lackey RN No [facility] Clinical Notes 04-16-2022 to 01-18-2025 Telephone Encounter - Jenn Reynolds RN - 07/09/2024 3:00 PM EDTTelephone Encounter - Jenn Reynolds RN - 07/09/2024 3:00 PM EDT Note Date & Type Note Facility 01-18-2025 Consult note [facility] 01-18-2025 Radiology Diagnostic study note [facility] Imaging Services [address] [place] [id number] Fluor Guidance for Spine Inj MR#: [id number] Acct: [id number] Name: NICOLASA CASTILLO Rep #: [id number] : 1975 F 49 From: Valdo Arambula MD PCP: Dr. Florian Johns MD Status: DEP S OR Study:Fluor Guidance for Spine Inj Date of Ex am: 01/18/25 Exam# [id number] Ordering Dr: Matthew Moyer MD PROCEDURE: FLUOR [...] fluoroscopic images were also obtained. Reading Location: [address] CC: Dr. Matthew Moyer MD; Dr. Florian Johns MD ~ Supervisor Sound Technician: Signed [facility] 01-18-2025 Radiology Diagnostic study note [facility] Imaging Services [address] [place] [address] OR-Steroid Inj/Cer Thor/1st L MR#: [id number] Acct: [id number] Name: NICOLASA CASTILLO Rep #: [id number] : 1975 F 49 From: Valdo Arambula MD PCP: Dr. Florian Johns MD Status: DEP S DC Study:OR-Steroid Inj/Cer Thor/1st L Date of E xam: 01/18/25 Exam# [id number] Ordering Dr: Matthew Moyer MD PROCEDURE: FLUOR [...] fluoroscopic images were also obtained. Reading Location: [address] CC: Dr. Matthew Moyer MD; Dr. Florian Johns MD ~ Supervisor Sound Technician: Signed [facility] 01-18-2025 Procedure note [facility] 01-18-2025 Consult note [facility] 01-04-2025 Note HNO ID: [id number] Author: YASMIN KEE MD Service: ? 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 PAST MEDICAL HISTORY Diagnosis Date Diabetes (HCC) Dysmetabolic syndrome Gout Hypercholesteremia Hypertension Hypothyroidism PAST SURGICAL HISTORY Procedure Laterality Date ASPIRATIONAND/INJECTION GANGLION CYST ANY LOCATJ Right 04/2023 removal cyst INSERTION OF IUD 07/03/2024 Liljesus MIRENA 03/23/2013 Removed 07/03/24 by DM at [facility] OFFICE LEEP 02/13/2013 Negative PAST SURGICAL HISTORY OF 05/2017 gastric [facility] REDUCTION OF LARGE BREAST Bilateral [...] discussed with the Patient or Patient's Authorized Principal Embedded Software Engineer. As applicable, any other physician, advance practice provider, medical student, or other health professional student that will be observing or involved in the sensitive examination for educational or training purposes was discussed with the Patient or Authorized Principal Embedded Software Engineer. The Patient or Authorized Principal Embedded Software Engineer has agreed to proceed with the sensitive [...] external genitalia normal, normal Bartholin's glands, urethra, Wild Rose's glands, no vulvar lesions, no cervical lesions, [...] or sooner as needed Yasmin Crouch MD [facility] 07-09-2024 Telephone encounter Note Pt notified [...] this time. Jenn Reynolds RN [facility] 07-09-2024 Miscellaneous Notes Pt notified and voiced [...] concerns. documented in this encounter [facility] 07-09-2024 Telephone encounter Note Please notify patient that pathology was benign from lap bilateral salpingectomy. She did have small cyst on one of her tubes that was c/w serous cystadenoma that I removed- nothing further. How is she feeling? No need for post op unless concerns. [facility] 07-03-2024 Consult note [facility] 07-03-2024 Consult note Note Date/Time July 03, 2024 9:33am [facility] Medical Records Department [address] [place] [address] Anesthesia Postop Eval I 07/03/24 0931 MR#: [id number] Acct: [id number] Name: NICOLASA CASTILLO Rep #:[id number] : 1975 49 From: Tamela ANDUJAR: Dr. Florian Johns MD Status:REG S DC Y Race: C Location: [place] [address] Anesthesia: Postop Eval I Current Vital Signs [...] Yes 07/03/24932 <Electronically signed by Tamela medeiros LOWER IN SUPERVISOR> Date _ Tamela Desai LOWER IN SUPERVISOR Cosigner Signature: Date CC: ~ Signed [facility] Work Phone: 1(424) 201-484104-04-2025 Discharge summary Author Yasmin Panda [facility] Note Date/Time July 03, 2024 8:24 am [facility] Medical Records Department [address] [place] [id number] Instructions for Home/Discharge Instructions 07/03/24 0823 MR#: [id number] Acct: [id number] Name: NICOLASA CASTILLO Rep #:[id number] : [...] if you need an appointment please call [phone] Test Results: Test results from this visit will be discussed in further detail at your follow- up appointment, if applicable. Discharge Plan Admission Attending Provider: Yasmin Crouch Primary Care Provider: Florian Johns Instructions Print Language: South African Discharge Orders/Prescriptions Prescriptions: No Action levothyroxine 89 [...] CC: Dr. Florian Johns MD ~ Signed [facility] Work Phone: 1(822) 863-434004-04-2025 Consult note Author Kaushal Leonardo [facility] Note Date/Time July 03, 2024 7:53 am [facility] Medical Records Department [address] [place] [address] Pre-Anesthesia Evaluation 07/03/24 0747 MR#: [id number] Acct: [id number] Name: NICOLASA CASTILLO Rep #:[id number] : 1975 49 From: Kaushal Leonardo MD PCP: Dr. Florian Johns MD Status:REG S DC Y Race: C Location: [place] [address] ASA Classification* ASA Classification ASA Classification: 2 [...] LILETTA IUD Anesthesia History Anesthesia History - python architect: Anesthesia History - python architect Hx Hospitalization No 06/10/24 08:11 Any Problems [...] take am of surgery PONV PONV - python architect: PONV - python architect Female Yes 06/10/24 08:11 HX of Motion [...] 07/03/24 07:11 Respiratory Assessment Respiratory Assessment - python architect: Respiratory Tract Infection Hx - python architect Hx Respiratory Tract Infection No 06/10/24 08:11 STOP Sleep Apnea STOP Sleep Apnea - python architect: STOP Sleep Apnea - python architect Hx Hypertension Yes: NO MEDS SINCE 201706/10/24 [...] Tobacco Use History Tobacco Use History - python architect: Tobacco Use History - python architect Tobacco Use Smoking Status Never smoker 06/10/24 08:11 Hx Tobacco Use No 06/10/24 08:11 Years Smoking Packs Smoked per Day Smoking Cessation Date was within the last 15 years Hx Smoking Cessation Date Hx Smoking Cessation Counseling Hematologic Medial History Hematologic Hx - python architect: Hematologic Medical Hx - sld teacher Hx of Blood Transfusion No 06/10/24 08:11 [...] confused, unrespo /Reproduction History /Reproductive History - python architect: /Reproductive Hx- python architect Hx Now No 06/10/24 08:11 Gestational Age [...] Family History Mother CAD (coronary artery disease) [place] age 47 Hypertension Brother Hypertension Diabetes Other [...] Leonardo MD Cosigner Signature: CC: ~ Signed [facility] Work Phone: [phone] 876-371504-04-2025 Consult note [facility] Medical Records Department [address] [place] [address] Anesthesia Postop Eval I 07/03/24930 MR#: [id number] Acct: [id number] Name: NICOLASA CASTILLO Rep #:[id number] : 1975 49 From: Tamela Desai LOWER IN SUPERVISOR PCP: Dr. Florian Johns MD Status:REG S DC Y Race: C Location: [place] [address] Anesthesia: Postop Eval I Current Vital Signs [...] Postop Eval 1 completed: Yes 07/03/2433 c LOWER IN SUPERVISOR> Date _ Tamela Desai LOWER IN SUPERVISOR Cosigner Signature: Date CC: ~ Signed [facility]04-04-2025 History and physical note Author Yasmin Panda [facility] Note Date/Time July 03, 2024 7:22 am [facility] Medical Records Department [address] [place] [address] H&P Exam - BOATBUILDER SUPERVISOR 07/02/24 1331 MR#: [id number] Acct: [id number] Name: NICOLASA CASTILLO Rep #:[id number] : 1975 49 From: Yasmin Jackson MD PCP: Dr. Florian Johns MD Status:REG S OR Location: [place] [address] History and Physical Date of Admission: 07/03/24 [...] Negative ? PAST SURGICAL HISTORY OF 05/2017 [facility] ? REDUCTION OF LARGE BREAST Bilateral [...] MD> Cosigner Signature (if applicable): cc: Dr Yamsin Crouch MD; Dr. Florian Johns MD ~* Signed [facility] Work Phone: 1(195) 417-703304-04-2025 Procedure note [facility] Medical Records Department [address] [place] [address] Operative Report 07/03/24 0913 MR#: [id number] Acct: [id number] Name: NICOLASA CASTILLO Rep #:[id number] : 1975 49 From: Yasmin Jackson MD PCP: Dr. Florian Johns MD Status:REG S DC Location: [place] [address] Operative Report (Standard) Operative Information Date of Procedure: 07/03/24 Pre-Operative Diagnosis: desires sterilization, dysmenorrhea, heavy menses Post-Operative Diagnosis: same, Omental adhesions Surgery/Procedure Performed: IUD removal, IUD- liletta insertion, laparoscopic bilateral salpingectomy, Lysis of adhesions gang head saw operator: No Type of Anesthesia: General and Local [...] Crouch MD; Dr. Florian Johns MD~ Signed [facility]04-04-2025 Discharge summary [facility] Medical Records Department [address] [place] [address] Instructions for Home/Discharge Instructions 07/03/24 0823 MR#: [id number] Acct: [id number] Name: ANNANICOLASA M Rep #:[id number] : [...] if you need an appointment please call [phone] Test Results: Test results from this visit will be discussed in further detail at your follow- up appointment, if applicable. Discharge Plan Admission Attending Provider: Yasmin Crouch Primary Care Provider: Florian Johns Instructions Print Language: South African Discharge Orders/Prescriptions Prescriptions: No Action levothyroxine 89 [...] CC: Dr. Florian Johns MD ~ Signed [facility]04-04-2025 Consult note [facility] Medical Records Department [address] [place] [address] Pre-Anesthesia Evaluation 07/03/24 0747 MR#: [id number] Acct: [id number] Name: ANNANICOLASA M Rep #:[id number] : 1975 49 From: Kaushal Leonardo MD PCP: Dr. Florian Johns MD Status:REG S DC Y Race: C Location: [facility]04- ASA Classification* ASA Classification ASA Classification: [...] LILETTA IUD Anesthesia History Anesthesia History - python architect: Anesthesia History - python architect Hx Hospitalization No 06/10/24 08:11 Any Problems [...] take am of surgery PONV PONV - python architect: PONV - python architect Female Yes 06/10/24 08:11 HX of Motion [...] 07/03/24 07:11 Respiratory Assessment Respiratory Assessment - python architect: Respiratory Tract Infection Hx - python architect Hx Respiratory Tract Infection No 06/10/24 08:11 STOP Sleep Apnea STOP Sleep Apnea - python architect: STOP Sleep Apnea - python architect Hx Hypertension Yes: NO MEDS SINCE 201706/10/24 [...] Tobacco Use History Tobacco Use History - python architect: Tobacco Use History - python architect Tobacco Use Smoking Status Never smoker 06/10/24 08:11 Hx Tobacco Use No 06/10/24 08:11 Years Smoking Packs Smoked per Day Smoking Cessation Date was within the last 15 years Hx Smoking Cessation Date Hx Smoking Cessation Counseling Hematologic Medial History Hematologic Hx - python architect: Hematologic Medical Hx - 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 teacher Hx of Blood Transfusion No 06/10/24 08:11 [...] confused, unrespo /Reproduction History /Reproductive History - python architect: /Reproductive Hx- python architect Hx Now No 06/10/24 08:11 Gestational Age [...] Family History Mother CAD (coronary artery disease) [place] age 47 Hypertension Brother Hypertension Diabetes Other [...] MD Cosigner Signature: Date CC: ~ Signed [facility]04-04-2025 History and physical note [facility] Medical Records Department [address] [place] [address] H&P Exam - BOATBUILDER SUPERVISOR 07/02/24 1331 MR#: [id number] Acct: [id number] Name: NICOLASA CASTILLO Rep #:[id number] : 1975 49 From: Yasmin Jackson MD PCP: Dr. Florian Johns MD Status:REG S OR Location: [place] [address] History and Physical Date of Admission: 07/03/24 [...] Negative ? PAST SURGICAL HISTORY OF 05/2017 [facility] ? REDUCTION OF LARGE BREAST Bilateral [...] on 06/09/2024 Note shared with patient 07/02/24 3938 Cosigner Signature (if applicable): CC: Dr Yasmin Crouch MD; Dr. Florian Johns MD~ Signed ADDENDUM by Dr Yasmin Crouch MD on 07/03/24 at 0722 Addendum I have examined the patient and the H&P has been reviewed. There are no clinicalchanges since date of exam. 07/03/24 07 Cosigner Signature (if applicable): cc: Dr Yasmin Crouch MD; Dr. Florian Johns MD ~* Signed [facility]03-11-2025 NoteHNO ID: [id number] Author: YASMIN KEE MD Service: ? Author Type: Physician Type: Progress Notes Filed: 06/09/2024 17:27 Note Text:[facility]03-11-2025 History of Present illness Narrative* Yasmin Kee MD - 06/09/2024 5:25 PM EDT documented [facility] History and physical note * Yasmin Kee [...] SURGICAL HISTORY OF 05/2017 [facility] REDUCTION OF LARGE BREAST Bilateral 2020 [...] medications and allergies Yasmin Jackson MD [facility]03-11-2025 History and physical note* Yasmin Kee MD [...] 02/13/2013 Negative PAST SURGICAL HISTORY OF 05/2017 [facility] REDUCTION OF LARGE BREAST Bilateral 2020 [...] Yasmin Jackson MD documented in this encounterSum[facility]01-21-2025 NoteHNO ID: [id number] Author: YASMIN KEE MD Service: ? 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 PAST MEDICAL HISTORY Diagnosis Date Diabetes (HCC) Dysmetabolic syndrome Gout Hypercholesteremia Hypertension Hypothyroidism PAST SURGICAL HISTORY Procedure Laterality Date ASPIRATIONAND/INJECTION GANGLION CYST ANY LOCATJ Right 04/2023 removal cyst MIRENA 03/23/2013 OFFICE LEEP 02/13/2013 Negative PAST SURGICAL HISTORY OF 05/2017 gastric [facility] REDUCTION OF LARGE BREAST Bilateral [...] which included preparing to see the patient, [id number] patient care, completing clinical documentation, obtaining and/or reviewing separately obtained history, performing a medically appropriate examination, and counseling and educating the patient/family/caregiver. 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 PAST MEDICAL HISTORY Diagnosis Date Diabetes (HCC) Dysmetabolic syndrome Gout Hypercholesteremia Hypertension Hypothyroidism PAST SURGICAL HISTORY Procedure Laterality Date ASPIRATION&/INJECTION GANGLION CYST ANY LOCATJ Right 04/2023 removal cyst MIRENA 03/23/2013 OFFICE LEEP 02/13/2013 Negative PAST SURGICAL HISTORY OF 05/2017 gastric bi pass- [facility] REDUCTION OF LARGE BREAST Bilateral 2020 [...] which included preparing to see the patient, [id number] patient care, completing clinical documentation, obtaining and/or reviewing separately obtained history, performing a medically appropriate examination, and counseling and educating the patient/family/caregiver. Yasmin Crouch MD documented in this encounterSum[facility]01-09-2025 Telephone encounter Note * Telephone Encounter - Desiree Vnan RN - 04/09/2024 9:07 AM EST Patient not able to leave work today. Scheduled for another date. Desiree Vann RN [facility]01-09-2025 Miscellaneous Notes* Telephone Encounter - Desiree Vann [...] Brandy Lackey RN documented in this encounterSumma [facility]01-09-2025 Telephone encounter Note * Telephone Encounter - Yasmin Kee MD - 04/09/2024 8:00 AM EST Yes, please schedule with me. I have openings today. [facility]01-08-2025 Telephone encounter Note* Telephone Encounter - Brandy Lackey RN - 04/08/2024 4:50 PM EST Patient last seen for annual exam on 09/17/23. Do you want patient to schedule consult for tubal. Brandy Lackey RN [facility]07-01-2024 Telephone encounter Note* Telephone Encounter - Brandy Lackey RN - 09/30/2023 9:16 AM EDT Patient notified and voiced understanding. Patient states she will contact office if she would liketo see dermatology. Brandy Lackey RN [facility]07-01-2024 Miscellaneous Notes* Telephone Encounter - Brandy Lackey [...] try something like GUILHERME D'OR (sell on [employer]) use erik drops, and can use Spironolactone 10 days out of the month. I would also recommend second opinion by Dermatology. * Telephone Encounter - Pat Marquez LPN - 09/26/2023 4:57 PM EDT Testosterone and DHEA lab results from [facility] received and to Dr. Jackson to review. Results entered in scanned documents documented in this encounterSumma [facility]06-30-2024 Telephone encounter Note * Telephone Encounter - [...] try something like GUILHERME D'OR (sell on [employer]) use erik drops, and can use Spironolactone 10 days out of the month. I would also recommend second opinion by Dermatology. [facility]06-27-2024 Telephone encounter Note* Telephone Encounter - Pat Marquez LPN - 09/26/2023 4:57 PM EDT Testosterone and DHEA lab results from [facility] received and to Dr. Jackson to review. Results entered in scanned documents [facility]2023 Instructions* Patient Instructions* Yasmin Jackson MD - [...] salmon and sardines and vegetables, such as Serbian cabbage, kale, and broccoli. Foods fortified with [...] acid, calcium carbonate is found in some yuka-iqw-qomkjhp antacid products, such as Tums and Rolaids [...] by your doctor. documented in this encounterSumma [facility]2023 History of Present illness Narrative* Yasmin Jackson MD - 06/18/2022 3:39 PM EDT Education Sales Consultant offered: Patient declines. Nicolasa is a 47 year old who presents for an annual gynecologic exam without complaints. Hair loss stable since last year. Planning trip to [place]. Daughter getting this year. Menses: no menses - Mirena IUD. 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 PAST MEDICAL HISTORY Diagnosis Date Diabetes (HCC) Dysmetabolic syndrome Gout Hypercholesteremia Hypertension Hypothyroidism PAST SURGICAL HISTORY Procedure Laterality Date MIRENA 03/23/2013 OFFICE LEEP 02/13/2013 Negative PAST SURGICAL HISTORY OF 05/2017 gastric [facility] REDUCTION OF LARGE BREAST Bilateral 2020 [...] external genitalia normal, normal Bartholin's glands, urethra, Wild Rose's glands, no vulvar lesions, no cervical lesions, good vaginal support, physiologic discharge present, normal appearing perineal body and perianal region, IUD strings present BIMANUAL: uterus normal size, shape and consistency, no adnexal masses, and non-tender RECTOVAGINAL: deferred. NEURO: alert and oriented x3,exam grossly non-focal EXTREMITIES: normal ASSESSMENT/PLAN: 1) Health maintenance: Pap/HPV up to date. Mammogram ordered [facility] Nutrition, exercise and routine health maintenance exams reviewed. Calcium/vit d information provided. 2) Contraception: IUD. Contraceptive options reviewed and information provided. 3) STD screening: Declined STD check. 4) Follow up one year or sooner as needed Yasmin Crouch MD documented in this encounterSum[facility]01-16-2023 Procedure noteWooHighland District HospitalConsult note Author Rose Geiger [facility] Note Date/Time July 03, 2024 12:1 0pm [facility] Medical Records Department [address] [place] [address] Anesthesia Postop Eval II 07/03/24 1050 MR#: [id number] Acct: [id number] Name: NICOLASA CASTILLO Rep #:[id number] : 1975 49 From: Rose Geiger PCP: Dr. Florian Johns MD Status:REG S DC Y Race: C Location: [place] [address] Anesthesia Postop Eval I Sum Postop Eval Completion status Anesthesia document: Postop Eval 1 completed: Yes Anesthesia Postop Eval I Summary Anesthesia Postop Eval I Summary: Anesthesia Postop Eval I: Assessment Summary Airway patent Yes 07/03/24 09:33 LOWER IN SUPERVISOR.LMIL Spontaneous unlabored Yes 07/03/24 09:33 LOWER IN SUPERVISOR.LMIL respirations Mental status Awake 07/03/24 09:33 LOWER IN SUPERVISOR.LMIL nausea No 07/03/24 09:33 LOWER IN SUPERVISOR.LMIL Vomiting No 07/03/24 09:33 LOWER IN SUPERVISOR.LMIL Anesthesia Postop Eval I: Fluid Summary Crystalloid volume administer 1,000 07/03/24 09:33 LOWER IN SUPERVISOR.LMIL (ml) Colloids volume administered ( ml) Blood Product volume administered (ml) Total IV fluid infused 1,000 07/03/24 09:33 LOWER IN SUPERVISOR.LMIL Anesthesia Postop Eval I: Summary Notes Anesthesia Complication No 07/03/24 09:33 LOWER IN SUPERVISOR.LMIL Anesthesia Complication Comment: Post-operative progress note Anesthesia: Postop Eval II Evaluation Mental status: Awake Pain Level: 2 nausea: No Vomiting: No 07/03/24 1050 <Electronically signed by Rose brizuela> Date _ Rose De Santiago Signature: Date CC: ~ Signed [facility] Work Phone: Consult note [facility] Medical Records Department [address] [place] [address] Anesthesia Postop Eval II 01/18/25 1237 MR#: [id number] Acct: [id number] Name: NICOLASA CASTILLO Rep #:[id number] : 1975 49 From: Jan Daniel MD PCP: Dr. Florian Johns MD Status:DEP S DC Y Race: C Location: [facility] Anesthesia Postop Eval I Sum Postop Eval Completion status Anesthesia document: Postop Eval 1 completed: Yes Anesthesia Postop Eval I Summary Anesthesia Postop Eval I Summary: Anesthesia Postop Eval I: Assessment Summary Airway patent Yes 01/18/25 08:06 LOWER IN SUPERVISOR.CSIR Spontaneous unlabored Yes 01/18/25 08:06 LOWER IN SUPERVISOR.CSIR respirations Mental status nausea No 01/18/25 08:06 LOWER IN SUPERVISOR.CSIR Vomiting No 01/18/25 08:06 LOWER IN SUPERVISOR.CSIR Anesthesia Postop Eval I: Fluid Summary Crystalloid volume administer 200 01/18/25 08:06 LOWER IN SUPERVISOR.CSIR (ml) Colloids volume administered ( ml) Blood Product volume administered (ml) Total IV fluid infused 200 01/18/25 08:06 LOWER IN SUPERVISOR.CSIR Anesthesia Postop Eval I: Summary Notes Anesthesia Complication No 01/18/25 08:06 LOWER IN SUPERVISOR.CSIR Anesthesia Complication Comment: Post-operative progress note Anesthesia: Postop Eval II Evaluation Mental status: Awake Pain Level: 3 nausea: No Vomiting: No 01/18/25 1237 > Date _ Jan Daniel MD Cosigner Signature: Date CC: ~ Signed [facility] Center[facility] Author Jan ricky [facility] Note Date/Time January 18, 2025 9 :44am [facility] Medical Records Department [address] [facility] [place] [address] Pre-Anesthesia Evaluation 01/18/25 0755 MR#: [id number] Acct: [id number] Name: NICOLASA CASTILLO Rep #:[id number] : 1975 49 From: Jan Daniel MD PCP: Dr. Florian Johns MD Status:REG S DC Y Race: C Location: [place] [address] ASA Classification* ASA Classification ASA Classification: 2 [...] Cervical Epidural Anesthesia History Anesthesia History - python architect: Anesthesia History - python architect Hx Hospitalization No 01/07/25 13:33 Any Problems [...] take am of surgery PONV PONV - python architect: PONV - python architect Female Yes 01/07/25 13:33 HX of Motion [...] 01/18/25 06:43 Respiratory Assessment Respiratory Assessment - python architect: Respiratory Tract Infection Hx - python architect Hx Respiratory Tract Infection No 01/07/25 13:33 STOP Sleep Apnea STOP Sleep Apnea - python architect: STOP Sleep Apnea - python architect Hx Hypertension Yes: NO MEDS SINCE 201701/07/25 [...] Tobacco Use History Tobacco Use History - python architect: Tobacco Use History - python architect Tobacco Use Smoking Status Never smoker 01/07/25 13:33 Hx Tobacco Use No 01/07/25 13:33 Years Smoking Packs Smoked per Day Smoking Cessation Date was within the last 15 years Hx Smoking Cessation Date Hx Smoking Cessation Counseling Hematologic Medial History Hematologic Hx - python architect: 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 01/18/25 1785 <Electronically signed by Jan Daniel MD > Date _ Jan Florign Signature: Date CC: ~ Signed [facility] Work Phone: Consult note Author Rose Geiger [facility] Note Date/Time January 18, 2025 9 :07am [facility] Medical Records Department [address] [place] [address] Anesthesia Postop Eval I 01/18/25 0805 MR#: [id number] Acct: [id number] Name: NICOLASA CASTILLO Rep #:[id number] : 1975 49 From: Rose Geiger CRNA PCP: Dr. Florian Johns MD Status:REG S DC Y Race: C Location: [place] [address] Anesthesia: Postop Eval I Current Vital Signs [...] 01/18/25 0807 <Electronically signed by Rose brizuela LOWER IN SUPERVISOR> Date _ Rose Geiger LOWER IN SUPERVISOR Cosigner Signature: Date CC: ~ Signed [facility] Work Phone: Consult note Author Jan Daniel [facility] Note Date/Time January 18, 2025 1 :37pm [facility] Medical Records Department [address] [place] [address] Anesthesia Postop Eval II 01/18/25 1237 MR#: [id number] Acct: [id number] Name: NICOLASA CASTILLO Rep #:[id number] : 1975 49 From: Jan Daniel MD PCP: Dr. Florian Johns MD Status:DEP S MONCHO Y Race: C Location: [facility] Anesthesia Postop Eval I Sum Postop Eval Completion status Anesthesia document: Postop Eval 1 completed: Yes Anesthesia Postop Eval I Summary Anesthesia Postop Eval I Summary: Anesthesia Postop Eval I: Assessment Summary Airway patent Yes 01/18/25 08:06 LOWER IN SUPERVISOR.CSIR Spontaneous unlabored Yes 01/18/25 08:06 LOWER IN SUPERVISOR.CSIR respirations Mental status nausea No 01/18/25 08:06 LOWER IN SUPERVISOR.CSIR Vomiting No 01/18/25 08:06 LOWER IN SUPERVISOR.CSIR Anesthesia Postop Eval I: Fluid Summary Crystalloid volume administer 200 01/18/25 08:06 LOWER IN SUPERVISOR.CSIR (ml) Colloids volume administered ( ml) Blood Product volume administered (ml) Total IV fluid infused 200 01/18/25 08:06 LOWER IN SUPERVISOR.CSIR Anesthesia Postop Eval I: Summary Notes Anesthesia Complication No 01/18/25 08:06 LOWER IN SUPERVISOR.CSIR Anesthesia Complication Comment: Post-operative progress note Anesthesia: Postop Eval II Evaluation Mental status: Awake Pain Level: 3 nausea: No Vomiting: No 01/18/25 1237 <Electronically signed by Jan Daniel MD > Date _ Jan Daniel MD [facility] Signature: Date CC: ~ Signed [facility] Work Phone: Evaluation noteNo assessment information available [facility] Work Phone: Evaluation note* Diagnosis Encounter for gynecological examination (general) (routine) without abnormal findings- Primary Encounter for screening mammogram for breast cancer [facility] Sterilization consult- Primary Other general counseling and advice for contraceptive management [facility] Diagnosis Sterilization consult- Primary Other general counseling and advice for contraceptive management Abnormal uterine bleeding (AUB) Dysmenorrhea Pre-op exam Preoperative examination, unspecified documented in this encounter [facility] Discharge instructions Additional Instructions Implant Used?: [facility] Work Phone: Reason for referral (narrative)* Diagnostic Procedure Only (Routine) - Pending Review Specialty Diagnoses / Procedures Referred By Contac t Referred To Contact [facility] Diagnoses Encounter for screening mammogram for breast cancer Procedures RORY SCREENING SCREENING MAMMOGRAPHY BI 2-VIEW BREAST INC CAD Yasmin Kee MD [address] [place] [address] [facility] [address] [place] [address] Referral ID Status Reason Start Date Expiration Date Visits Requested Visits Authorized [id number] Pending Review Auto-Generat ed Referral 06/18/2022 07/18/2023 1 [facility] for referral (narrative)No reason for referral information availableWSouthern [facility] Medical Center Work Phone: Summary Purpose Family History Relationship Condition Age at Onset Recorded Date/T elvira Not Specified Arthritis Unknown mother Coronary artery disease Unknown Hypertension Unknown brother Hypertension Unknown Diabetes mellitus Unknown Advance Directives Advance Directive Response Recorded Date/ Time Advance Directives No June 17, 2 014 2:14pm Living Will No February 21 2 020 4:30pm Power of Blueprint Trimmer No February 22, 2020 4:30pm Advance Directive Response Recorded Date/ Time Advance Directives No June 17 2 014 1:14pm Living Will No February 21, 2 020 3:30pm Power of Blueprint Trimmer No February 22, 2020 3:30pm Advance Directive Response Recorded Date/ Time Advance Directives No June 17, 2 014 1:14pm Living Will No April 08 1:20pm Power of Blueprint Trimmer No April 08, 2 024 1:20pm Advance Directive Response Recorded Date/ Time Living Will No June 10, 2024 8:11am Do you have a Healthcare Power of Blueprint Trimmer? No June 10, 2024 8:11am Advance Directives No June 17, 2 014 2:14pm Advance Directive Response Recorded Date/ Time Do you have a Healthcare Power of Blueprint Trimmer? No January 07, 2025 12:33pm Advance Directives [...] section and content) DATE CREATED AUTHOR 09/19/2017 [facility] DATE CREATED AUTHOR AUTHOR'S ORGANIZ ATION 01/07/2025 [facility] DATE CREATED AUTHOR AUTHOR'S ORGANIZ ATION 01/22/2025 [facility] Goals (unrecognized section and content) [...] ab, Referring Provider, Other Provider Active Dr. Stehpen Dawson DO Attending Provider Active Team Status: Inactive Member Role Status Dates Dr. Florian Johns MD Primary Care Provi ab, Attending Provider, Referring Provider Active Team Status: Inactive Member Role Status Dates Dr. Florian Johns MD Primary Care Provider, Attending Provider Active Edge Burnisher Relationship Specialty Start Date End Date Luis [...] Youssef DO Attending Provider, Referring Provider Active Edge Burnisher Relationship Specialty Start Date End Date Luis E Watson Chi PCP - General Family Medicine 12/12/12 Edge Burnisher Relationship Specialty Start Date End Date Luis E Watson Chi PCP - [facility] Medicine 12/12/12 Edge Burnisher Relationship Specialty Start Date End Date Luis E Watson Chi PCP - [facility] Family Medicine 12/12/12 Team Status: [...] July 03, 2024 End: July 03, 2024 Edge Burnisher Relationship Specialty Start Date End Date Luis E Watson Chi PCP - [facility] Family Medicine 12/12/12 Team Status: [...] any alcohol or drug abuse patient.[facility] the event this information is protected by the Federal Confidentiality of Alcohol and Drug Abuse Patient Records regulations: The Federal rules restrict any use of the information to criminally investigate or prosecute any alcohol or drug abuse patient.[facility]In the event this information is protected by the Federal Confidentiality of Alcohol and Drug Abuse Patient Records regulations: The Federal rules restrict any use of the information to criminally investigate or prosecute any alcohol or drug abuse patient.[facility] CampusIn the event this information is protected by the Federal Confidentiality of Alcohol and Drug Abuse Patient Records regulations: The Federal rules restrict any use of the information to criminally investigate or prosecute any alcohol or drug abuse patient.[facility]In the event this information is protected by the Federal Confidentiality of Alcohol and Drug Abuse Patient Records regulations: The Federal rules restrict any use of the information to criminally investigate or prosecute any alcohol or drug abuse patient.[facility] CampusIn the event this information is protected by the Federal Confidentiality of Alcohol and Drug Abuse Patient Records regulations: The Federal rules restrict any use of the information to criminally investigate or prosecute any alcohol or drug abuse patient.[facility] CampusIn the event this information is protected by the Federal Confidentiality of Alcohol and Drug Abuse Patient Records regulations: The Federal rules restrict any use of the information to criminally investigate or prosecute any alcohol or drug abuse patient.[facility] Reason for Visit (unrecogniz ed section and [...] BE BASED ON THE PRIMARY CLINICAL RECORDS. [facility]. provides no warranty or guarantee of the accuracy or completeness of information in this document.
[2025-03-29] MEDS: Lactated Ringers 1,000 ML 15 ML IV (06:38)
[2025-03-29] MEDS: Cefazolin 2 GM in 0.9% Normal Saline (100mL Bag) 100 ML IV (07:00)
--- NOTE | 2025-03-29 07:10 | PRE.ANES_ITS ---
ASA Classification* ASA Classification ASA Classification: 2 Assessment & Plan Anesthesia* Anesthesia Assessment Anesthesia Assessment: Discussed sedation and/or anesthesia options, risks, benefits, and alternatives with patient/parents/legal guardian/POA. Questions invited. The patient/parents/legal guardian/POA seems to understand and agrees to proceed with anesthesia plan. Reviewed the physical assessment, medical history, allergy history and patient home medications list prior to surgery/procedure/anesthetic and documented any changes. Performed airway and anesthesia risk assessments. Anesthesia Type Anesthesia Type: MAC History Source History Obtained from:: Patient and Chart Anesthesia Focused Assessment* Temperature: 97.7 F Pulse Rate: 60 Blood Pressure: 124/80 Respiratory Rate: 16 Pulse Ox: 98 Oxygen Delivery Method: Room Air Airway Assessment Mouth opens: >3 cm Mallampati Score: II Teeth Condition: Intact Neck Range of motion (ROM): Full ROM Labs Anesthesia Preop lab: CBC WBC, (4.4-11.0) 11.7 K/mm3 H 03/01/25, 14:18 RBC, (4.2-5.4) 4.36 M/mm3 03/01/25, 14:18 Hgb, (12.0-15.0) 13.2 g/dL 03/01/25, 14:18 Hct, (37-47) 39.7 % 03/01/25, 14:18 Plt Count, (150-450) 368 K/mm3 03/01/25, 14:18 CHEMISTRY Potassium, (3.3-5.1) 4.1 mmol/L 03/01/25, 14:18 Sodium, (133-145) 136 mmol/L 03/01/25, 14:18 BUN, (4-19) 14 mg/dL 03/01/25, 14:18 Creatinine, (0.70-1.20) 1.27 mg/dL H 03/01/25, 14:18 Glucose, (70-99) 122 mg/dL H 03/01/25, 14:18 POC Glucose, (70-110) 85 mg/dL 02/23/20, 11:22 TSH, (0.300-4.200) 0.866 uIU/mL 03/02/25, 07:11 COAG PT, (11.7-14.9) 12.7 SECONDS 11/23/20, 07:13 Urine Test Negative Negative 07/03/24, 07:00 Pre-Assessment Diagnosis/Proposed Procedure Planned Operative Procedure(s): RIGHT WRIST REVISION GANGLION CYST EXCISION Anesthesia History Anesthesia History - creative assistant: Anesthesia History - creative assistant Hx Hospitalization No 03/19/25 09:17 Any Problems With Anesthesia No 03/19/25 09:17 Cholinesterase deficiency No 03/19/25 09:17 You/Your Family Experience No 03/19/25 09:17 fever (hyperthermia) with Relationship Recent Exposure to Contagious No 03/29/25 06:34 Disease Does patient have nerve No 03/19/25 09:17 stimulator Patient instructed to have device shut off --Does patient have Pacemaker No 03/29/25 06:35 or ICD? When Was Last Pacemaker Check QUESTION #4 FULL TEXT: You/Your Family Experience fever (hyperthermia) with Anesthesia Last Oral Intake Last Oral intake: Last Oral Intake NPO since 00:00 03/29/25 06:35 Meds taken in AM with sips of water? Meds patient instructed to take am of surgery PONV PONV - creative assistant: PONV - creative assistant Female Yes 03/19/25 09:17 HX of Motion Sickness Yes 03/19/25 09:17 HX of N/V After Surgery No 03/19/25 09:17 Non-Smoker Yes 03/19/25 09:17 Duration of Surgery greater No 03/19/25 09:17 than 60 minutes Number of Risk Factors 3 03/19/25 09:17 PONV Score Moderate Risk 03/19/25 09:17 Height & Weight Height & Weight: Anesthesia: Height & Weight Height 5 ft 7 in 03/29/25 06:35 Weight: 86 kg 03/29/25 06:35 Body Mass Index (BMI) 29.7 03/29/25 06:35 Respiratory Assessment Respiratory Assessment - creative assistant: Respiratory Tract Infection Hx - creative assistant Hx Respiratory Tract Infection No 03/19/25 09:17 STOP Sleep Apnea STOP Sleep Apnea - creative assistant: STOP Sleep Apnea - creative assistant Hx Hypertension Yes 03/19/25 09:17 Hx Sleep Apnea No 03/19/25 09:17 CPAP No 03/19/25 09:17 BIPAP No 03/19/25 09:17 Do you snore loudly (louder No 03/19/25 09:17 than talking or can be heard Do you often feel tired/ No 03/19/25 09:17 fatigued/ sleepy during daytime? Has anyone observed you stop No 03/19/25 09:17 breathing during sleep? STOP Results Negative 03/19/25 09:17 QUESTION #5 FULL TEXT : Do you snore loudly (louder than talking or can be heard through closed doors)? 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 Specify any problems Hx of Preganancy in last 3 No 03/19/25 09:17 Months Nurse Filling Out Transfusion DSCHRIBER 03/19/25 09:17 & Questions: Date: 03/19/25 03/19/25 09:17 Time: 09:18 03/19/25 09:17 Patient unable to answer at this time (ie. confused, unrespo /Reproduction History /Reproductive History - creative assistant: /Reproductive Hx- creative assistant Hx Now No 03/19/25 09:17 Gestational Age (in weeks): EDC: Hx Hx Para Hx Section SAB No 03/19/25 09:17 Does the father of the baby or his family experience fever w Father of the baby Malignant Hypertension history comment Active Medications Active Medications: Current Medications Generic Name Dose Route Start Last Admin Trade Name Freq PRN Reason Stop Dose Admin Cefazolin Sodium 2 gm/ Sodium 110 mls @ 200 mls/hr 03/29/25 07:00 Chloride IV 03/29/25 07:32 INTRAOP ONE Lactated Ringer's 1,000 mls @ 15 mls/hr 03/29/25 06:15 03/29/25 06:38 IV 15 mls/hr .Q48H DAVE Administration PFSH Medical History Thyroid disease Non-smoker History of edema Alcohol use Migraine headache Leg cramps History of echocardiogram History of stress test Cardiology follow-up encounter Wears glasses Excessive weight loss Intertrigo Shoulder pain Anxiety and depression Gout Hypertension Home Medications ?Medication ?Instructions ?Recorded ?Last Taken ?Type levothyroxine 88 mcg tablet 88 mcg PO DAILY thyroid 03/28/25 History allopurinol 100 mg tablet 100 mg PO DAILY 06/10/24 History bupropion HCl 300 mg 24 hr tablet, 300 mg PO DAILY 03/2503/28/25 History extended release meloxicam 15 mg tablet 15 mg PO DAILY 06/10/2403/02 History ibuprofen 600 mg tablet 600 mg PO Q6H PRN PRN pain # 20 02/28/25 03/01/25 08:00 Rx TABLETS tizanidine 2 mg tablet 2 mg PO Q6H PRN 03/01/25 History Allergy/AdvReac Type Severity Reaction Status Date / Time No Known Allergies Allergy Verified 03/19/25 08:30 Family History Mother CAD (coronary artery disease) [place] age 47 Hypertension Brother Hypertension Diabetes Other Arthritis Surgical History Hx of cystoscopy History of tubal ligation Hx of hand surgery History of bilateral breast reduction surgery History of gastric bypass History of carpal tunnel release Social History household members: spouse housing: house Smoking Status: Never smoker alcohol intake: current alcohol intake frequency: holidays/special occasions only substance use type: does not use additional social history: DOES NOT TAKE IBUPROFEN DOES TAKE ASPIRIN NEEDED Review of Systems (Anesthesia) ROS Narrative System reviewed and no additional complaints, except as documented.
[2025-03-29] MEDS: Cefazolin 1 GM/5 ML Vial 2 GM IV (07:29)
[2025-03-29] MEDS: Midazolam 2 MG/2 ML Syringe 4 MG IV (07:29)
[2025-03-29] MEDS: fentaNYL 100 MCG/2 ML Ampul IV (07:37)
[2025-03-29] MEDS: Lidocaine 1% (5 ml sdv) 5 ML Vial 8 ML IV (07:37)
[2025-03-29] MEDS: Lidocaine 1% /Epi 1:100 (20ml) 20 ML Vial (07:40)
--- NOTE | 2025-03-29 08:04 | PCM.OPRPT ---
Operative Report (Standard) Operative Information Date of Procedure: 03/29/25 Pre-Operative Diagnosis: Recurrent right wrist dorsal ganglion cyst Post-Operative Diagnosis: Recurrent right wrist dorsal ganglion cyst Surgery/Procedure Performed: Revision right wrist dorsal ganglion cyst excision community nutrition educator: Yes Crewman [employer]: Chelsea Damon Tasks completed by cutter first: Opening & closing, Removing tissue and Retracting Type of Anesthesia: Local MAC RN Documented Start/Stop Times: Operation Date: 03/29/25 07:30 Case Time Into Pre-Op 03/29/25 06:03 Out of Pre-Op 03/29/25 07:22 Anesthesia Start 03/29/25 07:28 Into Room 03/29/25 07:28 Procedure Start 03/29/25 07:42 Procedure Start Time: 07:42 Procedure Stop Time: 08:03 Select all DRAINS/GRAFTS/IMPLANTS that apply: None Estimated Blood Loss: 2 cc Specimen collected: No Description of surgery: Patient was identified in the preoperative holding area by name, medical record number, date of . The operative extremity was marked. All questions answered to the patient satisfaction. At time of her procedure, patient was brought the operative suite positioned supine on a standard operating table. MAC anesthesia was achieved. A timeout was called confirming the side, site, and operation to be performed. No concerns were voiced and were to proceed with surgery. 2 g Ancef was administered IV prior to turning inflation by anesthesia staff. Prior to prepping, I administered a tumescent field block with 10 cc 1% lidocaine with epinephrine 1: 200,000. The right upper extremities then prepped and draped in a normal, sterile orthopedic fashion after applying a well-padded pneumatic tourniquet to the right forearm. We spun the bed 40 degrees. Right upper extremity was exsanguinated and Esmarch bandage. Tourniquet was inflated to 250 mmHg for approximately 10 minutes. Esmarch was removed. Prior longitudinal incision overlying the sixth dorsal compartment of the wrist was identified. This was used for incision as well. Full-thickness skin flaps were developed down to level of the fascia. Ganglion cyst was identified. Cyst was carefully dissected from surrounding adhesions down to the level of the tenosynovium of the ECU. There is a small rent in the fascia overlying the ECU corresponding to the takeoff of the cyst. Cyst was amputated at this site. The fascia was then cauterized and the void was closed watertight with interrupted [id number] 3-0 Vicryl suture. Wound was copiously irrigated with normal saline solution. Tourniquet deflated. Hemostasis achieved with bipolar cautery. Dermis was reapproximated buried interrupted 4-0 Monocryl suture. Dermabond and Steri-Strips were used to finally reapproximate skin. Bulky sterile compression was was applied. Well-padded volar short arm fiberglass splint was applied. Patient tolerated the procedure well without parent complication. She was safely wake from anesthesia in the operative suite and transferred to her gurney and subsequently PACU in stable condition. Surgical Findings: Recurrent ganglion cyst measuring 5 x 5 x 5 mm tracking to the extensor carpi ulnaris tendon. Complications Complications: No Admit VTE Documentation VTE Present on Admission: No VTE Mechan Device Prophylaxis: None VTE Pharm Prophylaxis ordered?: No Reason prophylaxis not ordered: Treatment Not Indicated
--- NOTE | 2025-03-29 08:24 | PCM.POST.ANE ---
Anesthesia: Postop Eval I Current Vital Signs Temperature: 98.2 F Pulse Rate: 68 Blood Pressure: 121/74 Respiratory Rate: 16 Pulse Ox: 95 Oxygen Delivery Method: Room Air Assessment Airway patent: Yes Spontaneous unlabored respirations: Yes Mental status: Awake and Calm nausea: No Vomiting: No Anesthesia Complication: No Fluid Hydration Crystalloid volume administer (ml): 300 Total IV fluid infused: 300 Progress Note Anesthesia document: Postop Eval 1 completed: Yes
--- NOTE | 2025-03-29 12:13 | POSTOPAN2_ITS ---
Anesthesia Postop Eval I Sum Postop Eval Completion status Anesthesia document: Postop Eval 1 completed: Yes Anesthesia Postop Eval I Summary Anesthesia Postop Eval I Summary: Anesthesia Postop Eval I: Assessment Summary Airway patent Yes 03/29/25 08:25 HISTOPATH TECH.MEDM Spontaneous unlabored Yes 03/29/25 08:25 HISTOPATH TECH.MEDM respirations Mental status Awake,Calm 03/29/25 08:25 HISTOPATH TECH.MEDM nausea No 03/29/25 08:25 HISTOPATH TECH.MEDM Vomiting No 03/29/25 08:25 HISTOPATH TECH.MEDM Anesthesia Postop Eval I: Fluid Summary Crystalloid volume administer 300 03/29/25 08:25 HISTOPATH TECH.MEDM (ml) Colloids volume administered ( ml) Blood Product volume administered (ml) Total IV fluid infused 300 03/29/25 08:25 HISTOPATH TECH.MEDM Anesthesia Postop Eval I: Summary Notes Anesthesia Complication No 03/29/25 08:25 HISTOPATH TECH.MEDM Anesthesia Complication Comment: Post-operative progress note Anesthesia: Postop Eval II Evaluation Mental status: Awake and Calm Pain Level: 1 nausea: No Vomiting: No Complications Anesthesia Complication: No
--- NOTE | 2025-03-29 12:13 | PCM.POSTANE2 ---
Anesthesia Postop Eval I Sum Postop Eval Completion status Anesthesia document: Postop Eval 1 completed: Yes Anesthesia Postop Eval I Summary Anesthesia Postop Eval I Summary: Anesthesia Postop Eval I: Assessment Summary Airway patent Yes 03/29/25 08:25 FUEL QUALITY TECH.MEDM Spontaneous unlabored Yes 03/29/25 08:25 FUEL QUALITY TECH.MEDM respirations Mental status Awake,Calm 03/29/25 08:25 FUEL QUALITY TECH.MEDM nausea No 03/29/25 08:25 FUEL QUALITY TECH.MEDM Vomiting No 03/29/25 08:25 FUEL QUALITY TECH.MEDM Anesthesia Postop Eval I: Fluid Summary Crystalloid volume administer 300 03/29/25 08:25 FUEL QUALITY TECH.MEDM (ml) Colloids volume administered ( ml) Blood Product volume administered (ml) Total IV fluid infused 300 03/29/25 08:25 FUEL QUALITY TECH.MEDM Anesthesia Postop Eval I: Summary Notes Anesthesia Complication No 03/29/25 08:25 FUEL QUALITY TECH.MEDM Anesthesia Complication Comment: Post-operative progress note Anesthesia: Postop Eval II Evaluation Mental status: Awake and Calm Pain Level: 1 nausea: No Vomiting: No Complications Anesthesia Complication: No
== END 2025-03-29 09:14 | disposition home or self-care (01) ==
LOC: SDC 05:56 → AC 05:57
PROVIDERS: PCP Family Medicine; Referring Provider Student in an Organized Health Care Education/Training Program; Visit Provider Student in an Organized Health Care Education/Training Program
PROC: (CPT 25112; principal; 2025-03-29 07:15)
DX: M67.431 Ganglion, right wrist (principal); Z79.890 Hormone replacement therapy; Z79.899 Other long term (current) drug therapy; E07.9 Disorder of thyroid, unspecified; I10 Essential (primary) hypertension
CPT/HCPCS: 25112; 01810; J2405